=== PATIENT | female | born 1960 | race Caucasian/White ===

== ENCOUNTER 2020-06-28 15:28 | Emergency (ER) | payer MEDICAID, SELFPAY ==
[2020-06-28 15:43] VITALS: BP 145/85; BP 158/86; PULSE 60; PULSE 81; RESP 18; TEMP 37.2; O2SAT 96; BMI 31.8
--- NOTE | 2020-06-28 16:14 | ECG_ITS ---
Test Reason : CHEST PAIN Blood Pressure : / mmHG Vent. Rate : 067 BPM Atrial Rate : 067 BPM P-R Int : 134 ms QRS Dur : 096 ms QT Int : 416 ms P-R-T Axes : -22 000 008 degrees QTc Int : 439 ms Normal sinus rhythm Minimal voltage criteria for LVH, may be normal variant Intra-ventricular conduction delay Abnormal ECG When compared with ECG of 03-MAY-2020 16:35, Vent. rate has decreased BY 54 BPM Referred By: Roman Smith Electronically Signed By:JULIANNE WHITNEY MD
--- NOTE | 2020-06-28 16:16 | XR_ITS ---
EXAMINATION: XR CHEST CLINICAL INFORMATION: Chest pain COMPARISON: Chest radiographs 05/03/2020 TECHNIQUE: Portable upright AP view of the chest was obtained. FINDINGS: The lungs are grossly clear. There is no pneumothorax, pleural reaction, airspace consolidation, or definite groundglass opacity. The costophrenic sulci are clear. There is no effusion. The heart is within normal size. The vascularity is unremarkable. The hilar and mediastinal contours and bony structures are unremarkable. IMPRESSION: No acute intrathoracic disease.
[2020-06-28 16:37] LABS: MANUAL DIFF FLAG NO
[2020-06-28 16:40] LABS: Basophils Percent Auto 0.4 % (0-2); Eosinophils Absolute Auto 0.3 X10*3/uL (0.0-0.4); Eosinophils Percent Auto 3.4 % (0-4); Hematocrit 36.2 % (37-47); Hemoglobin 11.2 g/dl (12.0-16.0); Imm Gran Abs Auto 0.04 X10*3/uL (0.00-0.03); Imm Gran Pct Auto 0.4 % (0.0-0.4); Lymphocytes Absolute Auto 3.4 X10*3/uL (1.2-4.9); Lymphocytes Percent Auto 37.6 % (20-40); Mean Corpuscular HGB Conc 30.9 g/dl (31.0-35.0); Mean Corpuscular Hemoglobin 24.7 pg (27.0-33.0); Mean Corpuscular Volume 79.9 fL (80-98); Mean Platelet Volume 11.2 fL (9.4-12.3); Monocytes Absolute Auto 0.6 X10*3/uL (0.1-1.2); Monocytes Percent Auto 7.2 % (2-11); Neutrophils Absolute Auto 4.5 X10*3/uL (2.0-8.3); Platelet Count 240 X10*3/uL (160-400); Red Blood Count 4.53 X10*6/uL (4.20-5.50); Red Cell Distribution Width 15.9 % (11.0-16.0); White Blood Count 8.9 X10*3/uL (4.8-10.8)
--- NOTE | 2020-06-28 16:47 | ED_ITS ---
HPI - Chest Pain General Chief Complaint: Chest Pain Stated Complaint: SOB Time Seen by Provider: 06/28/20 16:47 Source: EMS Mode of arrival: EMS Limitations: no limitations History of Present Illness HPI narrative: 60-year-old female with past medical history significant for anemia, anxiety disorder, arthritis, asthma, fibromyalgia, hypertension, migraine headaches and cervical CA status post total abdominal hysterectomy presenting today with complaint of substernal chest pain while she was watching television 6 hours prior to arrival. States pain feels like ache and continuous. Worsening with some activity. Similar to previous. MD complaint: chest pain Onset (ago): hour(s) Timing of current episode: constant Prior episodes: Yes Onset: during rest Pain location: substernal Pain radiation: none Severity: mild Relieving factors: nothing Related Data Allergies Allergy/AdvReac Type Severity Reaction Status Date / Time buspirone [From BuSpar] Allergy Mild TONGUE Verified 06/28/20 15:50 TINGLING, dizziness Motrin Allergy Unknown rash Verified 06/28/20 15:50 ibuprofen [From Motrin] AdvReac Mild HTN Verified 06/28/20 15:50 Review of Systems Review of Systems: Constitutional: No Weight loss, No Fever, No Chills, No Night Sweats, No Fatigue, No Malaise ENT/Mouth: No Hearing loss, No Ear Pain, No Nasal Congestion, No Sinus Pain, No Hoarseness, No sore throat, No Rhinorrhea, No Swallowing Difficulty Eyes: No Eye Pain, No Swelling, No Redness, No Foreign Body, No Discharge, No Vision Changes Cardiovascular: + Chest Pain, No SOB, No Dyspnea on Exertion, No Orthopnea, No Edema, No Palpitations Respiratory: No Cough, No Sputum, No Wheezing, No Smoke Exposure, No Dyspnea Gastrointestinal: No Nausea, No Vomiting, No Diarrhea, No Constipation, No abdominal Pain, No Hematochezia, No Melena Genitourinary: no irregular bleeding, No Dysuria, No Urinary Frequency, No Hematuria, No Urinary Incontinence, No Urgency, No Flank Pain, No Urinary Flow Changes, No Hesitancy Musculoskeletal: No joint pain, No Myalgias, No Joint Swelling Skin: No Skin Lesions, No rash Neuro: No Weakness, No Numbness, No Paresthesias, No Loss of Consciousness, No Dizziness, No Headache Psych: No Anxiety/Panic, No Depression, No SI/HI/AH/VH, No Social Issues, Heme/Lymph: No Bruising, No Bleeding,No Lymphadenopathy Endocrine: No Polyuria, No Polydipsia, No Temperature Intolerance [facility] Past Medical History Medical History (Updated 06/28/20 @ 20:00 by Ramon Nash NP) Anemia Arthritis Fibromyalgia, primary HTN (hypertension) Migraines Surgical History (Updated 06/28/20 @ 15:49 by Minoo Cavazos) H/O: hysterectomy Social History Social History Alcohol intake: never Smoking Status: Current every day smoker Smoked in Last 30 Days: Yes Use of substances other than those prescribed or required for medical reasons: No Advance Directives: Yes Advance Directives on File: Yes Advance Directives Date on File: 12/05/16 Physical Exam Vital Signs: Vital Signs: Vital Signs Temp Pulse Resp BP Pulse Ox 06/28/20 18:00 98.9 F 67 18 122/74 98 06/28/20 15:43 99.0 F 81 18 145/85 H 96 Body Mass Index 31.8 Const: Other: anxious-appearing General: cooperative and healthy appearing; No acute distress or intoxicated appearing Nutritional Appearance: average body habitus Orientation/consciousness: patient oriented x3 HENMT: Head: Yes normal to inspection Ears: hearing grossly normal bilaterally Eyes: General: appearance normal, both eyes and all related structures Visual Varela: normal visual varela by confrontation Neck: Neck: Yes normal visual inspection and No tender Thyroid: Thyroid normal Chest: Chest palpation & inspection: normal inspection of the chest Resp: Effort & Inspection: normal respiratory effort Cardio: Jugular venous distension: no JVD GI: Inspection: Yes normal to inspection Percussion: Yes normal to percussion Auscultation: normal bowel sounds : General: Yes no CVA tenderness Back/Spine/Pelvis: Back: no CVA tenderness Skin: General skin exam: no rashes or lesions noted Neuro: General: patient oriented x3 Extrem: General: Yes normal to inspection Course Course Course Narrative: has been resting comfortably on the phone in no acute distress. Does contribute component of anxiety to her symptoms. Labs otherwise unremarkable. Troponin negative. EKG without acute changes. Chest x-ray negative. Will discharge home with clear precaution return follow-up instructions. Stable for discharge. MDM - Chest Pain Differential Diagnosis Differential diagnosis: Likely stable angina, unstable angina pectoris, atypical chest pain, costochondritis and chest pain; Unlikely fracture of rib, pneumothorax, st elevation myocardial infarction and biliary colic Lab Data Result diagrams: 06/28/20 16:29 06/28/20 18:12 Labs: Lab Results 06/28/20 06/28/20 06/28/20 Range/Units 16:29 16:29 16:29 WBC 8.9 (4.8-10.8) X10*3/uL RBC 4.53 (4.20-5.50) X10*6/uL Hgb 11.2 L (12.0-16.0) g/dl Hct 36.2 L (37-47) % MCV 79.9 L (80-98) fL MCH 24.7 L (27.0-33.0) pg MCHC 30.9 L (31.0-35.0) g/dl RDW 15.9 (11.0-16.0) % Plt Count 240 (160-400) X10*3/uL MPV 11.2 (9.4-12.3) fL Immature Gran % (Auto) 0.4 (0.0-0.4) % Neut % (Auto) 51.0 (45-73) % Lymph % (Auto) 37.6 (20-40) % Chaves % (Auto) 7.2 (2-11) % Eos % (Auto) 3.4 (0-4) % Baso % (Auto) 0.4 (0-2) % Lymph # (Auto) 3.4 (1.2-4.9) X10*3/uL Chaves # (Auto) 0.6 (0.1-1.2) X10*3/uL Eos # (Auto) 0.3 (0.0-0.4) X10*3/uL Baso # (Auto) 0.0 (0.0-0.2) X10*3/uL Abs Immat Gran (auto) 0.04 H (0.00-0.03) X10*3/uL Absolute Neuts (auto) 4.5 (2.0-8.3) X10*3/uL Absolute Nucleated RBC 0.000 (0.0-0.012) X10*3/uL Nucleated RBC % (auto) 0.0 (0.0-0.2) /100WBC Hold Blue Top SEE NOTE Sodium Cancelled Potassium Cancelled Chloride Cancelled Carbon Dioxide Cancelled Anion Gap Cancelled BUN Cancelled Creatinine Cancelled Estim Creat Clear Calc Cancelled Estimated GFR Cancelled Random Glucose Cancelled Calcium Cancelled Total Bilirubin (0.0-1.0) mg/dL AST (5-31) U/L ALT (0-31) U/L Alkaline Phosphatase (39-117) U/L Troponin I High Sens (<3.5-17.0) ng/L Total Protein (6.5-8.0) g/dL Albumin (3.5-5.0) g/dL 06/28/20 06/28/20 06/28/20 Range/Units 16:29 17:08 18:12 WBC (4.8-10.8) X10*3/uL RBC (4.20-5.50) X10*6/uL Hgb (12.0-16.0) g/dl Hct (37-47) % MCV (80-98) fL MCH (27.0-33.0) pg MCHC (31.0-35.0) g/dl RDW (11.0-16.0) % Plt Count (160-400) X10*3/uL MPV (9.4-12.3) fL Immature Gran % (Auto) (0.0-0.4) % Neut % (Auto) (45-73) % Lymph % (Auto) (20-40) % Chaves % (Auto) (2-11) % Eos % (Auto) (0-4) % Baso % (Auto) (0-2) % Lymph # (Auto) (1.2-4.9) X10*3/uL Chaves # (Auto) (0.1-1.2) X10*3/uL Eos # (Auto) (0.0-0.4) X10*3/uL Baso # (Auto) (0.0-0.2) X10*3/uL Abs Immat Gran (auto) (0.00-0.03) X10*3/uL Absolute Neuts (auto) (2.0-8.3) X10*3/uL Absolute Nucleated RBC (0.0-0.012) X10*3/uL Nucleated RBC % (auto) (0.0-0.2) /100WBC Hold Blue Top Sodium Cancelled 141 Potassium Cancelled 4.0 Chloride Cancelled 106 Carbon Dioxide Cancelled 27 Anion Gap Cancelled 12 BUN Cancelled 13 Creatinine Cancelled 0.69 Estim Creat Clear Calc Cancelled 93.2 Estimated GFR Cancelled > 60 Random Glucose Cancelled 88 Calcium Cancelled 9.3 Total Bilirubin 0.5 (0.0-1.0) mg/dL AST 19 (5-31) U/L ALT 22 (0-31) U/L Alkaline Phosphatase 95 (39-117) U/L Troponin I High Sens < 3.5 (<3.5-17.0) ng/L Total Protein 6.9 (6.5-8.0) g/dL Albumin 4.1 (3.5-5.0) g/dL Imaging Data Chest x-ray: Radiologist's impression: [place] [id number] XRay Report Signed Patient: Nadege Lee#: [id number] : 2Acct:[id number] Age/Sex: 60 / FADM Date: 06/28/20 Loc: .ED Attending Dr: Ordering Physician: Generic ED Physician Date of Service: 06/28/20 Procedure(s): XR chest 1V Accession Number(s): [id number] cc: Generic ED Physician~ EXAMINATION: XR CHEST CLINICAL INFORMATION: Chest pain COMPARISON: Chest radiographs 05/03/2020 TECHNIQUE: Portable upright AP view of the chest was obtained. FINDINGS: The lungs are grossly clear. There is no pneumothorax, pleural reaction, airspace consolidation, or definite groundglass opacity. The costophrenic sulci are clear. There is no effusion. The heart is within normal size. The vascularity is unremarkable. The hilar and mediastinal contours and bony structures are unremarkable. IMPRESSION: No acute intrathoracic disease. Dictated By:LILIAN GREENWOOD MD Signed By:<Electronically signed by LILIAN GREENWOOD MD in OV>06/28/20 1725 DD/ 1616 TD/TT: Thermo Cementing Folder Operator: IVEY ECG Data ECG #1: Interpretation: Normal sinus rhythm Heart rate [address] segment changes Discharge Plan Discharge Clinical Impression: Costalchondritis Patient Disposition: Home, Self-Care Instructions: Chest Pain (ED), Anxiety (ED)
--- NOTE | 2020-06-28 17:00 | PC.NURSE ---
PATIENT A&OX3, IV INSERTED, LABS DRAWN, EKG BEING PERFORMED, SHEATHER APPLIED, NSR 70S-80S, VSS, WILL CONTINUE TO MONITOR.
[2020-06-28 17:11] LABS: Troponin-I High Sensitivity < 3.5 ng/L (<3.5-17.0)
[2020-06-28 18:00] VITALS: BP 122/74; PULSE 67; RESP 18; TEMP 37.2; O2SAT 98
[2020-06-28] MEDS: Acetaminophen 325 MG TABLET 975 MG PO (18:12)
--- NOTE | 2020-06-28 18:16 | PC.NURSE ---
patient medicated for 10 headache, desk monitor remains [id number], vss, pt requested food-providered okd patient to eat, will continue to monitor.
[2020-06-28 18:48] LABS: Alanine Aminotransferase 22 U/L (0-31); Albumin Level 4.1 g/dL (3.5-5.0); Alkaline Phosphatase 95 U/L (39-117); Anion Gap 12 (12-20); Aspartate Amino Transferase 19 U/L (5-31); Bilirubin Total 0.5 mg/dL (0.0-1.0); Blood Urea Nitrogen 13 mg/dL (9-16); Calcium 9.3 mg/dL (8.4-10.2); Carbon Dioxide 27 mmol/L (22-29); Chloride 106 mmol/L (96-108); Creatinine Clr Calc Pharmacy 93.2; Estimated Glomerular Filt Rate > 60; Glucose Random 88 mg/dL (60-115); Sodium 141 mmol/L (135-145); Total Protein 6.9 g/dL (6.5-8.0)
[2020-06-28 20:00] VITALS: BP 155/82; PULSE 60; RESP 18; TEMP 36.7; O2SAT 96
--- NOTE | 2020-06-28 20:10 | PC.NURSE ---
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
== END 2020-06-28 20:50 | disposition home or self-care (01) ==
PROVIDERS: Nurse Practitioner Primary Care; Emergency Provider Internal Medicine; PCP Internal Medicine
DX: M94.0 Chondrocostal junction syndrome [Tietze] (principal); I10 Essential (primary) hypertension; M79.7 Fibromyalgia
CPT/HCPCS: 36415; 71045; 80053; 84484; 85025; 93005; 99284

== ENCOUNTER 2020-07-10 21:06 | Emergency (ER) | payer MEDICAID, SELFPAY ==
[2020-07-10 21:37] VITALS: BP 147/82; PULSE 86; RESP 16; TEMP 36.8; O2SAT 100; BMI 30.5
--- NOTE | 2020-07-10 21:49 | ED.EXTPRO ---
HPI - Extremity Problem General Chief complaint: Extremity Injury, Lower Stated complaint: KNEE PAIN Time Seen by Provider: 07/10/20 21:49 History of Present Illness HPI Narrative: Patient is a 60-year-old female presents today with having bilateral lower extremity pain and back pain. Patient denies any bowel urinary incontinence. History of similar pain in the past. History of arthritis in both knees. Patient denies any fever chills. No pain on urination. No coughing or congestion or upper respiratory symptoms. No focal weakness. Patient is not on any blood thinners. Claims that she is allergic to Motrin, which causes her rash. Patient denies new pain. Similar to previous bouts. Patient claims that muscle relaxant has worked for her in the past Related Data Previous Rx's Medication Instructions Recorded cyclobenzaprine 10 mg PO TID PRN #20 tab 07/10/20 Allergies Allergy/AdvReac Type Severity Reaction Status Date / Time buspirone [From BuSpar] Allergy Mild TONGUE Verified 06/28/20 15:50 TINGLING, dizziness Motrin Allergy Unknown rash Verified 06/28/20 15:50 ibuprofen [From Motrin] AdvReac Mild HTN Verified 06/28/20 15:50 Review of Systems Review of Systems: Constitutional: No Weight loss, No Fever, No Chills, No Night Sweats, No Fatigue, No Malaise ENT/Mouth: No Hearing loss, No Ear Pain, No Nasal Congestion, No Sinus Pain, No Hoarseness, No sore throat, No Rhinorrhea, No Swallowing Difficulty Eyes: No Eye Pain, No Swelling, No Redness, No Foreign Body, No Discharge, No Vision Changes Cardiovascular: No Chest Pain, No SOB, No Dyspnea on Exertion, No Orthopnea, No Edema, No Palpitations Respiratory: No Cough, No Sputum, No Wheezing, No Smoke Exposure, No Dyspnea Gastrointestinal: No Nausea, No Vomiting, No Diarrhea, No Constipation, No abdominal Pain, No Hematochezia, No Melena Genitourinary: no irregular bleeding, No Dysuria, No Urinary Frequency, No Hematuria, No Urinary Incontinence, No Urgency, No Flank Pain, No Urinary Flow Changes, No Hesitancy Musculoskeletal: positive bilateral knee pain positive back pain Neuro: No Weakness, No Numbness, No Paresthesias, No Loss of Consciousness, No Dizziness, No Headache Psych: No Anxiety/Panic, No Depression, No SI/HI/AH/VH, No Social Issues, Heme/Lymph: No Bruising, No Bleeding,No Lymphadenopathy Endocrine: No Polyuria, No Polydipsia, No Temperature Intolerance [facility] Past Medical History Medical History Anemia Arthritis Fibromyalgia, primary HTN (hypertension) Migraines Surgical History H/O: hysterectomy Social History Social History Alcohol intake: never Smoking Status: Current every day smoker Smoked in Last 30 Days: No Use of substances other than those prescribed or required for medical reasons: No Advance Directives Date on File: 12/05/16 Physical Exam Vital Signs: Vital Signs: Vital Signs Temp Pulse Resp BP Pulse Ox 07/10/20 21:37 98.3 F 86 16 147/82 H 100 Body Mass Index 30.5 Appearance: Alert. Oriented X3. No acute distress. Eyes: Pupils equal, round and reactive to light. ENT: Pharynx normal. Neck: Normal inspection. Neck supple. No lymph nodes noted. No crepitus CVS: Normal heart rate and rhythm. Pulses normal. Normal S1 and S2 Respiratory: No respiratory distress. Breath sounds normal. No Wheezing. No rales Abdomen: Soft and nontender. No rigidity. No distention. good BS x4 Skin: Skin warm and dry. Normal skin color. Normal skin turgor. Extremities: No lower extremity edema. Neurovascular intact to all extremities. No Lacerations. No Rash. sensation in the lower extremity intact. Reflex 2+ at patella bilaterally. Skin intact. Pulses 2+ at dorsalis pedis. No pain on palpation of the spine. Positive paraspinal muscle tenderness bilaterally Neuro: Oriented X 3. No motor deficit. No sensory deficit. Moving all extermities. No slurred speech MDM - Extremity (Nontraumatic) MDM Narrative Medical decision making narrative: patient well appearing. No bowel urinary incontinence. No focal weakness. Pain most likely musculoskeletal versus sciatica. Will give patient muscle relaxants that has helped her in the past. Will have patient closely follow up on an outpatient basis. In stable condition. On exam there is no swelling. No evidence for DVT. Discharge Plan Discharge Clinical Impression: Sciatica Patient Disposition: Home, Self-Care Instructions: Sciatica (ED) Prescriptions: New cyclobenzaprine 10 mg tablet 10 mg PO TID PRN (Reason: back pain) Qty: 20 RF: 0 Referrals: Rolf Zhang MD [Primary Care Provider] - 2 days
[2020-07-10] MEDS: Cyclobenzaprine HCl 10 MG TABLET PO (22:09)
== END 2020-07-10 22:21 | disposition home or self-care (01) ==
LOC: HO.ED 22:02
PROVIDERS: Emergency Provider Emergency Medicine Emergency Medical Services; PCP Internal Medicine
DX: M54.31 Sciatica, right side (principal); M54.32 Sciatica, left side; M25.561 Pain in right knee; M54.5 Low back pain; I10 Essential (primary) hypertension; F17.200 Nicotine dependence, unspecified, uncomplicated; Z71.6 Tobacco abuse counseling; Z79.899 Other long term (current) drug therapy
CPT/HCPCS: 99283; 99284

== ENCOUNTER → 2020-08-03 13:54 | Outpatient (BNVA) | payer MEDICAID, SELFPAY | PROVIDERS: PCP Internal Medicine; Visit Provider Internal Medicine | DX: Z76.89 Persons encountering health services in other specified circumstances (principal) ==

== ENCOUNTER 2020-08-03 15:28 | Outpatient (REF) | payer MEDICAID, SELFPAY ==
--- NOTE | 2020-08-03 17:00 | PFT_ITS ---
Forced vital capacity moderately reduced. FEV1 slightly reduced, but FEV1/FVC ratio is normal. [id number] moderately reduced. MVV is markedly reduced. Post bronchodilator therapy, there is a small, but significant improvement in FEV1 and BMX91-01. MVV is markedly improved probably due to better effort. Total lung capacity and residual volume slightly decreased. Diffusion capacity moderately decreased. CONCLUSION: Mild restrictive pulmonary disorder. Mild obstructive airway disorder with good response to bronchodilator therapy. This indicates that the patient may have mild bronchial asthma. MD JOANNE Golden/FRIEDA / [phone]
== END 2020-08-03 15:29 | disposition home or self-care (01) ==
LOC: HO.RESP 15:28
PROVIDERS: PCP Internal Medicine; Visit Provider Internal Medicine
DX: R06.00 Dyspnea, unspecified (principal); J44.9 Chronic obstructive pulmonary disease, unspecified
CPT/HCPCS: 94060; 94727; 94729; 99202

== ENCOUNTER 2020-08-05 11:17 | Outpatient (REF) | payer MEDICAID, SELFPAY ==
--- NOTE | 2020-08-05 11:25 | XR_ITS ---
EXAMINATION: XR CHEST CLINICAL INFORMATION: Dyspnea COMPARISON: 06/28/2020 TECHNIQUE: 2 views of the chest were obtained. FINDINGS: The lungs are well expanded. There is no focal consolidation, edema, or effusion. No pneumothorax. The cardiomediastinal silhouette is within normal limits. No acute osseous abnormality. XR/XR chest 2V IMPRESSION: No acute pulmonary finding.
== END 2020-08-05 11:18 | disposition home or self-care (01) ==
LOC: HO.XRAY 11:17
PROVIDERS: PCP Internal Medicine; Visit Provider Internal Medicine
DX: R06.00 Dyspnea, unspecified (principal)
CPT/HCPCS: 71046

== ENCOUNTER 2020-09-16 11:00 | Outpatient (RCR) | payer MEDICAID, SELFPAY | END 2020-09-27 11:43 | disposition other institution (70) | LOC: HO.PT 11:00 | PROVIDERS: PCP Internal Medicine; Visit Provider Emergency Medicine | DX: M17.11 Unilateral primary osteoarthritis, right knee (principal) | CPT/HCPCS: 97110; 97161 ==

== ENCOUNTER 2021-05-04 11:01 | Outpatient (REF) | payer MEDICAID, SELFPAY ==
--- NOTE | ~2021-05-04 | US_ITS ---
EXAMINATION: US VENOUS ULTRASOUND WITH DOPPLER LOWER EXTREMITY, RIGHT CLINICAL INFORMATION: Right lower extremity pain COMPARISON: 05/04/2020 TECHNIQUE: Ultrasound of the deep veins is performed from the hip to the calf with compression sonography and color and pulse Doppler assessment. Spectral analysis with color-flow imaging is performed. FINDINGS: There is normal venous compression and respiratory variation and augmented flow. The visualized common femoral vein, superficial femoral vein, profunda femoral vein, popliteal vein, and the trifurcation region shows no evidence of deep venous thrombosis. Posterior tibial veins are seen but the peroneal veins, which were seen on the 2019 study, are not visualized on this exam. There is no significant popliteal fossa cyst. If the patient's symptoms persist, followup ultrasound in 5 days 7 days might be of value to exclude proximal propagation from a non-visualized calf vein. US/US venous duplex LE RT IMPRESSION: No DVT demonstrated in the right lower extremity from the popliteal veins upwards. The peroneal veins are not seen on the current study, but they were in 2019. If patient's symptoms continue would recommend a repeat study in the 1-2 weeks.
== END 2021-05-04 11:02 | disposition home or self-care (01) ==
LOC: HO.US 11:01
PROVIDERS: PCP Internal Medicine; Visit Provider Internal Medicine
DX: M79.604 Pain in right leg (principal); R20.0 Anesthesia of skin
CPT/HCPCS: 93971

== ENCOUNTER 2021-07-04 00:56 | Emergency (ER) | payer MEDICAID, SELFPAY ==
--- NOTE | 2021-07-04 01:08 | PC.NURSE ---
PT CAME IN W/EMS- WAS APPROPRIATE TO START HER CARE IN TRIAGE. PT STATES TO THIS RN IF I DON'T GET A ROOM I AM LEAVING THIS CHARGE NURSE EXPLAINED TO PT WE HAD NO ROOMS, AND NO HALLWAY SPACE AVAILABLE IN THE ED, BUT WE DID HAVE A NURSE IN [place] WHO COULD ASSESS HER, ORDER LABS AND ANY IMAGING NEEDED TO FACILITATE HER CARE. PT PROCEEDED TO GET UP OFF THE EMS STRETCHER AND STATE FUCK THIS PLACE IM GOING TO [facility]
== END 2021-07-04 01:29 | disposition left against medical advice (07) ==
LOC: HO.ED 01:12
PROVIDERS: Emergency Provider Emergency Medicine
DX: R11.0 Nausea (principal); R53.1 Weakness

== ENCOUNTER 2021-07-21 11:00 | Outpatient (RCR) | payer MEDICAID, SELFPAY ==
--- NOTE | 2021-06-14 11:59 | MHC.PT.EP ---
[facility] [place] Office [place] Office [place] Office [address] [place] Rooney [address] [phone] F: [phone] F: [phone] F: [phone] F: [phone] Physical Therapy Plan of Care Date of Evaluation: Date of Surgery: November 2020 Diagnosis: right leg pain (S/P R TKA November 2020) Assessment: pt presents to physical therapy s/p R TKA back in November 2020. The pt received no therapy after her surgery secondary to her poor tolerance of exercise and activity after surgery. The pt maintains her knee in full extension all the time and refuses to bend it secondary to pain. She has significant limitations in knee range and patellar mobility limiting her ability to bend her knee. pt several times stated she would leave if this therapist pushed on her knee or touched her leg when she did not want it. Unclear if pt has psychosocial factors that will limit her ability to participate in therapy. pt presents to physical therapy with pain, decreased range of motion, decreased strength, impaired functional mobility, impaired postural awareness, and gait deviations. pt is a fair candidate for skilled PT due to age, potential remediation of impairments, typical disease/condition progression and prognosis, comorbidities, and motivation. pt would benefit from tailored strengthening and stretching exercise program, functional training, gait training, postural re-training, neuromuscular re-education, modalities as needed for pain, equipment safety demonstration. Frequency and Duration: The patient will be seen 2x/wk for 6 wks Short Term Goals: pt will be I w/ HEP to promote self-management of condition. pt will improve R knee flexion by 15 deg to promote ease in sitting in chair for self-care activities. pt will ambulate w/ cane in L hand to promote increased safety and reduced weight bearing through R LE. Electron Beam Welder Goals: pt will report a statistically significant improvement in her self-reported outcome measure, LEFI, to promote return to PLOF. pt will report <5/10 R knee pain w/ ambulating 5x30' to promote increased tolerance for household ambulation. pt will be I w/ lower body dressing to reduce caregiver burden and foster functional independence. Treatment Plan: Modalities to reduce pain, spasms and effusion. Manual therapy to restore motion and function. Therapeutic exercise to improve strength and flexibility. Neuromuscular re-education for posture and balance. Therapeutic activities to return to functional activities of daily living. Electronically signed by: Asia Castro PT, DPT Please sign and return to therapist. Thank you for your referral.
--- NOTE | 2021-08-05 10:09 | MHC.PT.DC ---
[facility] [place] Office [place] Office [place] Office [address] Rooney [address] [facility] [phone] F: [phone] F: [phone] F: [phone] F: [phone] Physical Therapy Discharge Report Diagnosis: right leg pain (S/P R TKA November 2020) Date of Surgery: November 2020 Date of Evaluation: 06/14/21 Date of Discharge: 08/05/21 Treatments to Date: 4 Cancellations to Date: 5 No Shows to Date: 4 Discharge Status: Visit Non-compliance Discharge Summary: The patient has poor attendance. Per [facility] Therapy policy she is being discharged from this physical therapy plan of care. She has not had a follow-up with her orthopedic surgeon since her surgery. She is very self-limiting secondary to fear of pain. She refuses to bend her knee causing significant loss of knee flexion range of motion. She is discharged from this physical therapy plan of care. Electronically signed by: Asia Castro PT, DPT Please sign and return to therapist. Thank you for your referral.
== END 2021-08-05 10:10 | disposition home or self-care (01) ==
LOC: HO.PT 11:00
PROVIDERS: PCP Internal Medicine; Visit Provider Internal Medicine
DX: R10.31 Right lower quadrant pain (principal)
CPT/HCPCS: 97110; 97162

== ENCOUNTER 2021-11-15 15:57 | Emergency (ER) | payer MEDICAID, SELFPAY ==
--- NOTE | ~2021-11-15 | CT_ITS ---
EXAMINATION: CT ABDOMEN AND PELVIS WITH CONTRAST CLINICAL INFORMATION: 61-year-old female back pain, history of cervical carcinoma COMPARISON: 05/03/2020 TECHNIQUE: Multidetector volumetric images were obtained from the superior aspect of the liver through the pubic symphysis following administration 85 mL of Omnipaque 350 intravenous contrast. Sagittal and coronal reformatted images were obtained on the technologist's workstation. Oral contrast: No This CT examination was performed using dose optimization techniques as appropriate, variously including the following: *Automated exposure control *Adjustment of mA and/or kV according to patient size (this includes techniques or standardized protocols for targeted exams where dose is matched to indication/reason for exam; i.e. extremities or head) *Use of iterative reconstruction technique DLP: 641 mGy-cm FINDINGS: LUNG BASES: There is linear scarring in the and right middle lobe LIVER, GALLBLADDER, AND BILIARY TREE: The liver is normal in size, shape, and attenuation. No focal hepatic lesion or biliary ductal dilatation is present. The gallbladder is unremarkable with no evidence of radiopaque gallstones, gallbladder wall thickening, or obvious pericholecystic inflammatory changes. PANCREAS: Unremarkable. SPLEEN: Unremarkable. ADRENAL GLANDS: Unremarkable. KIDNEYS AND URETERS: Left kidney revealed 1.3 cm cortical cyst in upper pole. Left kidney demonstrates nonobstructing 2 mm stone. There is no hydroureteronephrosis. BLADDER: Unremarkable. GASTROINTESTINAL TRACT: The small and large bowel are unremarkable. The appendix is unremarkable. ABDOMINAL WALL: There is small fat-containing umbilical hernia. LYMPH NODES: Normal. VASCULAR: Unremarkable. PELVIC VISCERA: Patient is status post total hysterectomy. OSSEOUS STRUCTURES: There are mild multilevel degenerative changes in lumbar and distal thoracic spine CT/CT abdomen pelvis w con IMPRESSION: No acute abnormalities. Status post hysterectomy. Small cyst left kidney and nonobstructing stone in the right kidney. Fleischner guidelines were followed.
[2021-11-15 17:31] VITALS: BP 151/85; PULSE 72; RESP 18; TEMP 36.9; O2SAT 98; BMI 28.3
--- NOTE | 2021-11-15 18:12 | ED.ABDPAIN ---
HPI - Abdominal Pain General Chief Complaint: Urogenital-Female <GUERITA Lindsay - Last Filed: 11/15/21 18:30> Stated Complaint: abd pain/possible infection/headaches <GUERITA Lindsay - Last Filed: 11/15/21 18:30> Time Seen by Provider: 11/15/21 17:42 <GUERITA Lindsay - Last Filed: 11/15/21 18:30> Source: patient <GUERITA Lindsay - Last Filed: 11/15/21 18:30> Mode of arrival: ambulatory <GUERITA Lindsay - Last Filed: 11/15/21 18:30> Limitations: no limitations <GUERITA Lindsay Last Filed: 11/15/21 18:30> History of Present Illness HPI narrative: 61-year-old female with a past medical history of hypertension, fibromyalgia, arthritis, anemia, migraine headaches and cervical cancer years ago who now self catheterizes daily multiple times presenting to the ED with complaints of suprapubic abdominal pain radiating to her back reporting ?I think I have a kidney infection?. She reports over the past 2 days it has been painful to self cath and the last time she had that she had a kidney infection. She reports that she has had subjective fevers, chills, body aches, headaches along with this. She denies any recent travel or sick contacts. She denies any measured fevers, dizziness, neck pain/stiffness, trouble swallowing or breathing, chest pain or shortness of breath, dyspnea on exertion, orthopnea, palpitations, hematuria, abnormal vaginal discharge, diarrhea constipation, rashes or any other symptoms complaints or concerns at this time. <GUERITA Lindsay - Last Filed: 11/15/21 18:30> MD elicited complaint: abdominal pain <GUERITA Lindsay - Last Filed: 11/15/21 18:30> Pertinent past history: other (See above) <GUERITA Lindsay - Last Filed: 11/15/21 18:30> Onset (ago): day(s) (2) <GUERITA Lindsay - Last Filed: 11/15/21 18:30> Pain Consistency: constant <GUERITA Lindsay Last Filed: 11/15/21 18:30> Location: suprapubic <GUERITA Lindsay - Last Filed: 11/15/21 18:30> Severity: moderate <GUERITA Lindsay Last Filed: 11/15/21 18:30> Quality: cramping, aching and sharp <GUERITA Lindsay Last Filed: 11/15/21 18:30> Radiation: back <GUERITA Lindsay Last Filed: 11/15/21 18:30> Exacerbating factors: other (self ) <GUERITA Lindsay Last Filed: 11/15/21 18:30> Relieving factors: nothing <GUERITA Lindsay Last Filed: 11/15/21 18:30> Associated symptoms: fever and chills <GUERITA Lindsay Last Filed: 11/15/21 18:30> Related Data Home Medications: Home Medications Medication Instructions Recorded Confirmed lisinopril 20 mg tablet 20 mg PO DAILY 08/03/20 naproxen 500 mg tablet (Naprosyn) 500 mg PO BID 08/03/20 Previous Rx's Medication Instructions Recorded cyclobenzaprine 10 mg tablet 10 mg PO TID PRN #20 tab 07/10/20 albuterol sulfate 90 mcg/actuation 2 puff INHALATION Q4-6H PRN 30 08/03/20 aerosol inhaler (ProAir HFA) Days #8.5 g fluticasone propionate 100 2 inh PO BID #60 cap 11/26/20 mcg/actuation blister powder for inhalation (Flovent Diskus) <GUERITA Lindsay Last Filed: 11/15/21 18:30> Allergies/Adverse Reactions: Allergies Allergy/AdvReac Type Severity Reaction Status Date / Time buspirone [From BuSpar] Allergy Mild TONGUE Verified 11/15/21 17:31 [place], dizziness Motrin Allergy Unknown rash Verified 11/15/21 17:31 ibuprofen [From Motrin] AdvReac Mild HTN Verified 11/15/21 17:31 <GUERITA Lindsay Last Filed: 11/15/21 18:30> Review of Systems Review of Systems Constitutional : + Fever, + Chills, No Night Sweats, No Fatigue, No Malaise Cardiovascular : No Chest Pain, No SOB Respiratory : No Cough, No Sputum, No Wheezing, No Dyspnea Gastrointestinal : No Nausea, No Vomiting, No Diarrhea, + abdominal Pain, No Hematochezia, No Melena Genitourinary : No irregular bleeding, No Dysuria, No Urinary Frequency, No Hematuria,No Urinary Incontinence, No Urgency, No Flank Pain Musculoskeletal : No joint pain, No Myalgias, No Joint Swelling Skin : No Skin Lesions, No rash Neuro : No Weakness, No Numbness, No Paresthesias, No Loss of Consciousness, No Dizziness, No Headache Heme/Lymph: No Lymphadenopathy Endocrine : No Temperature Intolerance <GUERITA Lindsay - Last Filed: 11/15/21 18:30> Yes all other systems are reviewed and are negative <GUERITA Lindsay - Last Filed: 11/15/21 18:30> FOR[facility]LY [facility] Past Medical History Attestation statement: The following information was validated with the patient. <GUERITA Lindsay - Last Filed: 11/15/21 18:30> Medical History: Medical History Anemia Arthritis Dyspnea on exertion Fibromyalgia, primary History of cervical cancer HTN (hypertension) Migraines <GUERITA Lindsay - Last Filed: 11/15/21 18:30> Surgical History: Surgical History H/O: hysterectomy <GUERITA Lindsay - Last Filed: 11/15/21 18:30> Social History Social History: Social History Alcohol intake: never Advance Directives: Yes Advance Directives Information Provided: No Advance Directives on File: No Advance Directives Date on File: 12/05/16 <GUERITA Lindsay - Last Filed: 11/15/21 18:30> Physical Exam ED Vital Signs: Vital Signs - 24 hr 11/15/21 17:31 11/15/21 20:35 Temperature 98.5 F Pulse Rate 72 84 Respiratory Rate 18 16 Blood Pressure 151/85 H 180/99 H Pulse Oximetry 98 100 BMI result Body Mass Index 28.3 vital signs have been reviewed as normal and appeared to be correct. Blood pressure 151/85. Heart rate normal. Respiration rate normal. Temperature normal. Oxygen saturation normal. <GUERITA Lindsay - Last Filed: 11/15/21 18:30> Vital Signs - 24 hr 11/15/21 17:31 11/15/21 20:35 Temperature 98.5 F Pulse Rate 72 84 Respiratory Rate 18 16 Blood Pressure 151/85 H 180/99 H Pulse Oximetry 98 100 BMI result Body Mass Index 28.3 <GUERITA Rose - Last Filed: 11/15/21 21:41> Appearance: Alert. Oriented X3. No acute distress. Head: Normal external exam. Normocephalic. Atraumatic. Eyes: PERRLA. EOMI. Conjunctiva and sclera normal. Eyelids normal. ENT: Pharynx normal. Uvula midline. Moist mucous membranes. Normal voice. Neck: Normal inspection. Neck supple. FROM. No adenopathy. No tracheal deviation noted. No meningeal signs. No neck mass noted. CVS: Normal heart rate and rhythm. Heart sound normal. Pulses normal throughout. No murmurs/rales/gallops. Respiratory: No respiratory distress. Painless inspiration. Breath sounds normal. No wheezes/rales/rhonchi noted. Chest nontender. No crepitus is noted. No signs of trauma noted. No accessory muscle usage noted or decreased air movement noted. No signs of trauma. Abdomen: Soft and mild ttp to suprapubic area. Bowel sounds normal in all 4 quadrants. No distention noted. No organomegaly noted. No visible injury noted. Back: No CVA tenderness. Full range of motion noted. Nontender. Patient neuro intact bilaterally and distally on all 4 extremities. Patient's reflexes intact bilaterally and distally on all 4 extremities. No rashes/lesion/induration/fluctuance or signs of infection noted. Skin: Skin warm and dry. Normal skin color. Normal skin turgor. No rashes/lesions/lacerations noted. Extremities: Extremities exhibit normal range of motion and nontender. Neuro: Oriented X 3. No motor deficit. No sensory deficit. Reflexes normal. Normal steady gait. No focal neuro deficits noted. CN's II-XII intact bilaterally? Vascular: + radial pulses/+ 2 distal pedal pulses/+2 dorsalis pedis b/l. Normal cap refill. No cyanosis noted to upper extremity nails and lower extremity toes nails. <GUERITA Lindsay - Last Filed: 11/15/21 18:30> Course Course Course Narrative: 18pm - 61-year-old female with a past medical history of hypertension, fibromyalgia, arthritis, anemia, migraine headaches and cervical cancer years ago who now self catheterizes daily multiple times presenting to the ED with complaints of suprapubic abdominal pain radiating to her back reporting ?I think I have a kidney infection?. She reports over the past 2 days it has been painful to self cath and the last time she had that she had a kidney infection. She reports that she has had subjective fevers, chills, body aches, headaches along with this. On exam she does have mild suprapubic abdominal tenderness. No rebound tenderness is noted no guarding. No organomegaly noted. No CVA tenderness is noted. Her back does not have any rashes and she is neuro intact bilaterally and distally on all 4 extremities. Normal steady Gait. Plan: Labs, UA, CT scan abdomen pelvis with IV contrast provide a L of IV fluids and re-evaluate. Sign out to Colleen Leavitt PA-C <GUERITA Lindsay - Last Filed: 11/15/21 18:30> 18pm - 61-year-old female with a past medical history of hypertension, fibromyalgia, arthritis, anemia, migraine headaches and cervical cancer years ago who now self catheterizes daily multiple times presenting to the ED with complaints of suprapubic abdominal pain radiating to her back reporting ?I think I have a kidney infection?. She reports over the past 2 days it has been painful to self cath and the last time she had that she had a kidney infection. She reports that she has had subjective fevers, chills, body aches, headaches along with this. On exam she does have mild suprapubic abdominal tenderness. No rebound tenderness is noted no guarding. No organomegaly noted. No CVA tenderness is noted. Her back does not have any rashes and she is neuro intact bilaterally and distally on all 4 extremities. Normal steady Gait. Plan: Labs, UA, CT scan abdomen pelvis with IV contrast provide a L of IV fluids and re-evaluate. Sign out to Colleen Leavitt PA-C Patient's lab work was unremarkable. Patient's UA was unremarkable. Patient's CT abdominal/pelvis showed no acute process. Patient was informed of my physical exam and all test results. I stressed the importance of the patient following up with her PCP. Patient verbalized agreement and understanding with this treatment plan and discharge. <GUERITA Rose - Last Filed: 11/15/21 21:41> MDM - Abdominal Pain Medical Records Attestation: I reviewed the patient's medical records. <GUERITA Lindsay - Last Filed: 11/15/21 18:30> I reviewed the patient's medical records. <GUERITA Rose - Last Filed: 11/15/21 21:41> Lab Data Attestation: I reviewed the patient's lab results. <GUERITA Lindsay - Last Filed: 11/15/21 18:30> I reviewed the patient's lab results. <GUERITA Rose - Last Filed: 11/15/21 21:41> Result diagrams: : 11/15/21 18:40 11/15/21 18:40 <GUERITA Lindsay - Last Filed: 11/15/21 18:30> Labs: Lab Results 11/15/21 11/15/21 11/15/21 Range/Units 18:40 18:40 18:40 WBC 10.5 (4.8-10.8) X10*3/uL RBC 4.47 (4.20-5.50) X10*6/uL Hgb 11.0 L (12.0-16.0) g/dl Hct 35.8 L (37.0-47.0) % MCV 80.1 (80.0-98.0) fL MCH 24.6 L (27.0-33.0) pg MCHC 30.7 L (31.0-35.0) g/dl RDW 15.9 (11.0-16.0) % Plt Count 249 (160-400) X10*3/uL MPV 10.2 (9.4-12.3) fL Immature Gran % (Auto) 0.3 (0.0-0.4) % Neut % (Auto) 51.0 (45-73) % Lymph % (Auto) 39.1 (20-40) % [place] % (Auto) 6.4 (2-11) % Eos % (Auto) 2.9 (0-4) % Baso % (Auto) 0.3 (0-2) % Lymph # (Auto) 4.1 (1.2-4.9) X10*3/uL [place] # (Auto) 0.7 (0.1-1.2) X10*3/uL Eos # (Auto) 0.3 (0.0-0.4) X10*3/uL Baso # (Auto) 0.0 (0.0-0.2) X10*3/uL Abs Immat Gran (auto) 0.03 (0.00-0.03) X10*3/uL Absolute Neuts (auto) 5.4 (2.0-8.3) x10*3/uL Absolute Nucleated RBC 0.000 (0.0-0.012) X10*3/uL Nucleated RBC % (auto) 0.0 (0.0-0.2) /100WBC PT 11.4 (9.9-13.0) SEC INR 1.0 (0.9-1.1) Sodium 139 (135-145) mmol/L Potassium 4.6 (3.3-5.1) mmol/L Chloride 106 (96-108) mmol/L Carbon Dioxide 26 (22-29) mmol/L Anion Gap 12 (12-20) BUN 19 H (9-16) mg/dL Creatinine 0.76 (0.5-1.4) mg/dL Estim Creat Clear Calc 78.9 Estimated GFR > 60 Random Glucose 85 (60-115) mg/dL Lactic Acid (0.5-2.0) mmol/L Calcium 9.6 (8.4-10.2) mg/dL Magnesium 2.1 (1.6-2.6) mg/dL Total Bilirubin 0.2 (0.0-1.0) mg/dL AST 17 (5-31) U/L ALT 13 (0-31) U/L Alkaline Phosphatase 99 (39-117) U/L Total Protein 7.3 (6.5-8.0) g/dL Albumin 4.2 (3.5-5.0) g/dL Urine Color Urine Appearance Urine pH (5.0-8.0) Ur Specific [place] (1.005-1.025) Urine Protein (NEG-TRACE) MG/DL Urine Glucose (UA) (NEG) MG/DL Urine Ketones (NEG) MG/DL Urine Blood (NEG) Urine Nitrite (NEG) Ur Leukocyte Esterase (NEG) 11/15/21 11/15/21 Range/Units 18:40 18:43 WBC (4.8-10.8) X10*3/uL RBC (4.20-5.50) X10*6/uL Hgb (12.0-16.0) g/dl Hct (37.0-47.0) % MCV (80.0-98.0) fL MCH (27.0-33.0) pg MCHC (31.0-35.0) g/dl RDW (11.0-16.0) % Plt Count (160-400) X10*3/uL MPV (9.4-12.3) fL Immature Gran % (Auto) (0.0-0.4) % Neut % (Auto) (45-73) % Lymph % (Auto) (20-40) % [place] % (Auto) (2-11) % Eos % (Auto) (0-4) % Baso % (Auto) (0-2) % Lymph # (Auto) (1.2-4.9) X10*3/uL [place] # (Auto) (0.1-1.2) X10*3/uL Eos # (Auto) (0.0-0.4) X10*3/uL Baso # (Auto) (0.0-0.2) X10*3/uL Abs Immat Gran (auto) (0.00-0.03) X10*3/uL Absolute Neuts (auto) (2.0-8.3) x10*3/uL Absolute Nucleated RBC (0.0-0.012) X10*3/uL Nucleated RBC % (auto) (0.0-0.2) /100WBC PT (9.9-13.0) SEC INR (0.9-1.1) Sodium (135-145) mmol/L Potassium (3.3-5.1) mmol/L Chloride (96-108) mmol/L Carbon Dioxide (22-29) mmol/L Anion Gap (12-20) BUN (9-16) mg/dL Creatinine (0.5-1.4) mg/dL Estim Creat Clear Calc Estimated GFR Random Glucose (60-115) mg/dL Lactic Acid 0.6 (0.5-2.0) mmol/L Calcium (8.4-10.2) mg/dL Magnesium (1.6-2.6) mg/dL Total Bilirubin (0.0-1.0) mg/dL AST (5-31) U/L ALT (0-31) U/L Alkaline Phosphatase (39-117) U/L Total Protein (6.5-8.0) g/dL Albumin (3.5-5.0) g/dL Urine Color YELLOW Urine Appearance CLEAR Urine pH 6.5 (5.0-8.0) Ur Specific [place] 1.020 (1.005-1.025) Urine Protein NEG (NEG-TRACE) MG/DL Urine Glucose (UA) NEG (NEG) MG/DL Urine Ketones NEG (NEG) MG/DL Urine Blood NEG (NEG) Urine Nitrite NEG (NEG) Ur Leukocyte Esterase NEG (NEG) <GUERITA Lindsay - Last Filed: 11/15/21 18:30> Lab Results 11/15/21 11/15/21 11/15/21 Range/Units 18:40 18:40 18:40 WBC 10.5 (4.8-10.8) X10*3/uL RBC 4.47 (4.20-5.50) X10*6/uL Hgb 11.0 L (12.0-16.0) g/dl Hct 35.8 L (37.0-47.0) % MCV 80.1 (80.0-98.0) fL MCH 24.6 L (27.0-33.0) pg MCHC 30.7 L (31.0-35.0) g/dl RDW 15.9 (11.0-16.0) % Plt Count 249 (160-400) X10*3/uL MPV 10.2 (9.4-12.3) fL Immature Gran % (Auto) 0.3 (0.0-0.4) % Neut % (Auto) 51.0 (45-73) % Lymph % (Auto) 39.1 (20-40) % [place] % (Auto) 6.4 (2-11) % Eos % (Auto) 2.9 (0-4) % Baso % (Auto) 0.3 (0-2) % Lymph # (Auto) 4.1 (1.2-4.9) X10*3/uL [place] # (Auto) 0.7 (0.1-1.2) X10*3/uL Eos # (Auto) 0.3 (0.0-0.4) X10*3/uL Baso # (Auto) 0.0 (0.0-0.2) X10*3/uL Abs Immat Gran (auto) 0.03 (0.00-0.03) X10*3/uL Absolute Neuts (auto) 5.4 (2.0-8.3) x10*3/uL Absolute Nucleated RBC 0.000 (0.0-0.012) X10*3/uL Nucleated RBC % (auto) 0.0 (0.0-0.2) /100WBC PT 11.4 (9.9-13.0) SEC INR 1.0 (0.9-1.1) Sodium 139 (135-145) mmol/L Potassium 4.6 (3.3-5.1) mmol/L Chloride 106 (96-108) mmol/L Carbon Dioxide 26 (22-29) mmol/L Anion Gap 12 (12-20) BUN 19 H (9-16) mg/dL Creatinine 0.76 (0.5-1.4) mg/dL Estim Creat Clear Calc 78.9 Estimated GFR > 60 Random Glucose 85 (60-115) mg/dL Lactic Acid (0.5-2.0) mmol/L Calcium 9.6 (8.4-10.2) mg/dL Magnesium 2.1 (1.6-2.6) mg/dL Total Bilirubin 0.2 (0.0-1.0) mg/dL AST 17 (5-31) U/L ALT 13 (0-31) U/L Alkaline Phosphatase 99 (39-117) U/L Total Protein 7.3 (6.5-8.0) g/dL Albumin 4.2 (3.5-5.0) g/dL Urine Color Urine Appearance Urine pH (5.0-8.0) Ur Specific [place] (1.005-1.025) Urine Protein (NEG-TRACE) MG/DL Urine Glucose (UA) (NEG) MG/DL Urine Ketones (NEG) MG/DL Urine Blood (NEG) Urine Nitrite (NEG) Ur Leukocyte Esterase (NEG) 11/15/21 11/15/21 Range/Units 18:40 18:43 WBC (4.8-10.8) X10*3/uL RBC (4.20-5.50) X10*6/uL Hgb (12.0-16.0) g/dl Hct (37.0-47.0) % MCV (80.0-98.0) fL MCH (27.0-33.0) pg MCHC (31.0-35.0) g/dl RDW (11.0-16.0) % Plt Count (160-400) X10*3/uL MPV (9.4-12.3) fL Immature Gran % (Auto) (0.0-0.4) % Neut % (Auto) (45-73) % Lymph % (Auto) (20-40) % [place] % (Auto) (2-11) % Eos % (Auto) (0-4) % Baso % (Auto) (0-2) % Lymph # (Auto) (1.2-4.9) X10*3/uL [place] # (Auto) (0.1-1.2) X10*3/uL Eos # (Auto) (0.0-0.4) X10*3/uL Baso # (Auto) (0.0-0.2) X10*3/uL Abs Immat Gran (auto) (0.00-0.03) X10*3/uL Absolute Neuts (auto) (2.0-8.3) x10*3/uL Absolute Nucleated RBC (0.0-0.012) X10*3/uL Nucleated RBC % (auto) (0.0-0.2) /100WBC PT (9.9-13.0) SEC INR (0.9-1.1) Sodium (135-145) mmol/L Potassium (3.3-5.1) mmol/L Chloride (96-108) mmol/L Carbon Dioxide (22-29) mmol/L Anion Gap (12-20) BUN (9-16) mg/dL Creatinine (0.5-1.4) mg/dL Estim Creat Clear Calc Estimated GFR Random Glucose (60-115) mg/dL Lactic Acid 0.6 (0.5-2.0) mmol/L Calcium (8.4-10.2) mg/dL Magnesium (1.6-2.6) mg/dL Total Bilirubin (0.0-1.0) mg/dL AST (5-31) U/L ALT (0-31) U/L Alkaline Phosphatase (39-117) U/L Total Protein (6.5-8.0) g/dL Albumin (3.5-5.0) g/dL Urine Color YELLOW Urine Appearance CLEAR Urine pH 6.5 (5.0-8.0) Ur Specific [place] 1.020 (1.005-1.025) Urine Protein NEG (NEG-TRACE) MG/DL Urine Glucose (UA) NEG (NEG) MG/DL Urine Ketones NEG (NEG) MG/DL Urine Blood NEG (NEG) Urine Nitrite NEG (NEG) Ur Leukocyte Esterase NEG (NEG) <GUERITA Rose - Last Filed: 11/15/21 21:41> Imaging Data CT scan - abdomen: Attestation: I personally reviewed and interpreted this imaging study as follows: <GUERITA Rose - Last Filed: 11/15/21 21:41> Radiologist's impression: EXAMINATION: CT ABDOMEN AND PELVIS WITH CONTRAST? CLINICAL INFORMATION: 61-year-old female back pain, history of cervical carcinoma? COMPARISON: 05/03/2020? TECHNIQUE: Multidetector volumetric images were obtained from the superior aspect of the liver through the pubic symphysis following administration 85 mL of Omnipaque 350 intravenous contrast. Sagittal and coronal reformatted images were obtained on the technologist's workstation.? Oral contrast: No This CT examination was performed using dose optimization techniques as appropriate, variously including the following: *Automated exposure control *Adjustment of mA and/or kV according to patient size (this includes techniques or standardized protocols for targeted exams where dose is matched to indication/reason for exam; i.e. extremities or head) *Use of iterative reconstruction technique DLP: 641 mGy-cm FINDINGS: LUNG BASES: There is linear scarring in the and right middle lobe? LIVER, GALLBLADDER, AND BILIARY TREE: The liver is normal in size, shape, and attenuation. No focal hepatic lesion or biliary ductal dilatation is present. The gallbladder is unremarkable with no evidence of radiopaque gallstones, gallbladder wall thickening, or obvious pericholecystic inflammatory changes.? PANCREAS: Unremarkable.? SPLEEN: Unremarkable.? ADRENAL GLANDS: Unremarkable.? KIDNEYS AND URETERS: Left kidney revealed 1.3 cm cortical cyst in upper pole. Left kidney demonstrates nonobstructing 2 mm stone. There is no hydroureteronephrosis.? BLADDER: Unremarkable.? GASTROINTESTINAL TRACT: The small and large bowel are unremarkable. The appendix is unremarkable.? ABDOMINAL WALL: There is small fat-containing umbilical hernia.? LYMPH NODES: Normal. VASCULAR: Unremarkable. PELVIC VISCERA: Patient is status post total hysterectomy.? OSSEOUS STRUCTURES: There are mild multilevel degenerative changes in lumbar and distal thoracic spine? CT/CT abdomen pelvis w con IMPRESSION: No acute abnormalities. Status post hysterectomy. Small cyst left kidney and nonobstructing stone in the right kidney.? ? Fleischner guidelines were followed. Dictatedd By: Nancy Rosen MD Signed By: Electronically signed by Nancy Rosen MD 11/15/212019 <GUERITA Rose - Last Filed: 11/15/21 21:41> Discharge Plan Discharge Clinical Impression: Self-catheterizes urinary bladder, Abdominal pain <GUERITA Lindsay - Last Filed: 11/15/21 18:30> Patient Disposition: Home, Self-Care <GUERITA Lindsay - Last Filed: 11/15/21 18:30> Instructions: Abdominal Pain (ED) <GUERITA Lindsay - Last Filed: 11/15/21 18:30> Additional Instructions: Follow up with your primary care provider. Return to the emergency department immediately if your symptoms worsen or if you develop any dizziness, shortness of breath, difficulty breathing, chest pain, blurry vision, loss of vision, nausea, vomiting, abdominal pain, fever, chills, back pain, or any other complaints. <GUERITA Lindsay - Last Filed: 11/15/21 18:30> Prescriptions: No Action fluticasone propionate [Flovent Diskus] 100 mcg/actuation blister with device 2 inh PO BID Qty: 60 3RF cyclobenzaprine 10 mg tablet 10 mg PO TID PRN (Reason: back pain) Qty: 20 0RF lisinopril 20 mg tablet 20 mg PO DAILY 0RF naproxen [Naprosyn] 500 mg tablet 500 mg PO BID 0RF albuterol sulfate [ProAir HFA] 90 mcg/actuation HFA aerosol inhaler 2 puff inhalation Q4-6H PRN (Reason: shortness of breath or wheezing) 30 Days Qty: 8.5 3RF <GUERITA Lindsay - Last Filed: 11/15/21 18:30> Referrals: Lilly Cowart MD [Primary Care Provider] - 2 days <GUERITA Lindsay - Last Filed: 11/15/21 18:30> Interventions: ED Discharge Assessment Last Done: 11/15/21 21:06 <GUERITA Lindsay - Last Filed: 11/15/21 18:30> Discharge Date/Time: 11/15/21 21:15 <GUERITA Lindsay - Last Filed: 11/15/21 18:30> Print Language: [place] <GUERITA Lindsay - Last Filed: 11/15/21 18:30>
[2021-11-15 18:50] LABS: MANUAL DIFF FLAG NO
[2021-11-15 18:51] LABS: Basophils Percent Auto 0.3 % (0-2); Eosinophils Absolute Auto 0.3 X10*3/uL (0.0-0.4); Eosinophils Percent Auto 2.9 % (0-4); Hematocrit 35.8 % (37.0-47.0); Imm Gran Abs Auto 0.03 X10*3/uL (0.00-0.03); Imm Gran Pct Auto 0.3 % (0.0-0.4); Lymphocytes Absolute Auto 4.1 X10*3/uL (1.2-4.9); Lymphocytes Percent Auto 39.1 % (20-40); Mean Corpuscular HGB Conc 30.7 g/dl (31.0-35.0); Mean Corpuscular Hemoglobin 24.6 pg (27.0-33.0); Mean Corpuscular Volume 80.1 fL (80.0-98.0); Mean Platelet Volume 10.2 fL (9.4-12.3); Monocytes Absolute Auto 0.7 X10*3/uL (0.1-1.2); Monocytes Percent Auto 6.4 % (2-11); Neutrophils Absolute Auto 5.4 x10*3/uL (2.0-8.3); Platelet Count 249 X10*3/uL (160-400); Red Blood Count 4.47 X10*6/uL (4.20-5.50); Red Cell Distribution Width 15.9 % (11.0-16.0); White Blood Count 10.5 X10*3/uL (4.8-10.8)
[2021-11-15 18:54] LABS: Appearance Urine CLEAR; Color Urine YELLOW; Glucose Urine UA NEG (NEG); Leukocyte Esterase Urine NEG (NEG); Nitrite Urine NEG (NEG); PH 6.5 (5.0-8.0); Urine Blood NEG (NEG); Urine Ketones NEG (NEG); Urine Protein NEG (NEG-TRACE)
[2021-11-15 18:58] LABS: Prothrombin Time 11.4 SEC (9.9-13.0)
[2021-11-15 19:02] LABS: Lactic Acid 0.6 mmol/L (0.5-2.0)
[2021-11-15 19:07] LABS: Alanine Aminotransferase 13 U/L (0-31); Albumin Level 4.2 g/dL (3.5-5.0); Alkaline Phosphatase 99 U/L (39-117); Anion Gap 12 (12-20); Aspartate Amino Transferase 17 U/L (5-31); Bilirubin Total 0.2 mg/dL (0.0-1.0); Blood Urea Nitrogen 19 mg/dL (9-16); Calcium 9.6 mg/dL (8.4-10.2); Carbon Dioxide 26 mmol/L (22-29); Chloride 106 mmol/L (96-108); Creatinine Clr Calc Pharmacy 78.9; Estimated Glomerular Filt Rate > 60; Glucose Random 85 mg/dL (60-115); Magnesium 2.1 mg/dL (1.6-2.6); Potassium 4.6 mmol/L (3.3-5.1); Sodium 139 mmol/L (135-145); Total Protein 7.3 g/dL (6.5-8.0)
[2021-11-15] MEDS: 0.9 % Sodium Chloride 1,000 ML 999 ML IVCONT (19:07)
[2021-11-15] MEDS: iohexoL 350 MG/ML 100 ML INFUS..BTL IV (19:39)
[2021-11-15] MEDS: Morphine Sulfate 4 MG/ML CARTRIDGE IVPUSH (19:52)
[2021-11-15 20:35] VITALS: BP 180/99; PULSE 84; RESP 16; O2SAT 100
== END 2021-11-15 21:15 | disposition home or self-care (01) ==
PROVIDERS: Emergency Medicine; Physician Assistant Medical; Emergency Provider Emergency Medicine Emergency Medical Services; PCP General Practice
DX: R10.9 Unspecified abdominal pain (principal); M79.10 Myalgia, unspecified site; I10 Essential (primary) hypertension; M54.50 Low back pain, unspecified; R25.2 Cramp and spasm; R51.9 Headache, unspecified; Z79.899 Other long term (current) drug therapy
CPT/HCPCS: 36415; 74177; 80053; 81003; 83605; 83735; 85025; 85610; 87040; 96361; 96374; 96375; 99284; J2270; Q9967

== ENCOUNTER 2022-02-12 15:06 | Emergency (ER) | payer MEDICAID, SELFPAY ==
--- NOTE | ~2022-02-12 | XR_ITS ---
EXAMINATION: X-RAY RIGHT KNEE X-RAY LEFT KNEE CLINICAL INFORMATION: Pain. COMPARISON: Radiograph of the right knee dated from 02/06/2018. Radiograph of the left knee dated from 05/17/2017. TECHNIQUE: 4 views of each knee. FINDINGS: Right knee: There is a total right knee arthroplasty without evidence of hardware failure. No acute fractures or malalignment. No joint effusion. No unexpected radiopaque foreign bodies. Left knee: No acute fractures or malalignment. Severe tricompartmental degenerative osteoarthritis with joint space narrowing, subcortical sclerosis and osteophytes. No erosions or chondrocalcinosis. Small joint effusion. XR/XR knee LT 3V IMPRESSION: 1. Intact right knee arthroplasty. 2. No acute fractures or malalignment. 3. Severe tricompartmental degenerative changes of the left knee. 4. Small left knee joint effusion.
--- NOTE | ~2022-02-12 | US_ITS ---
EXAMINATION: US VENOUS ULTRASOUND WITH DOPPLER LOWER EXTREMITY, BILATERAL CLINICAL INFORMATION: Calf swelling status post surgery COMPARISON: None TECHNIQUE: Ultrasound of the deep veins is performed from the hip to the calf with compression sonography and color and pulse Doppler assessment. Spectral analysis with color-flow imaging is performed. FINDINGS: RIGHT: There is normal venous compression and respiratory variation and augmented flow. The visualized common femoral vein, superficial femoral vein, profunda femoral vein, popliteal vein, and the trifurcation region shows no evidence of deep venous thrombosis. There is no significant popliteal fossa cyst. LEFT: There is normal venous compression and respiratory variation and augmented flow. The visualized common femoral vein, superficial femoral vein, profunda femoral vein, popliteal vein, and the trifurcation region shows no evidence of deep venous thrombosis. There is no significant popliteal fossa cyst. If the patient's symptoms persist, followup ultrasound in 5 days 7 days might be of value to exclude proximal propagation from a non-visualized calf vein. US/US venous duplex LE BI IMPRESSION: No DVT demonstrated in the bilateral lower extremity.
--- NOTE | ~2022-02-12 | XR_ITS ---
EXAMINATION: X-RAY RIGHT KNEE X-RAY LEFT KNEE CLINICAL INFORMATION: Pain. COMPARISON: Radiograph of the right knee dated from 02/06/2018. Radiograph of the left knee dated from 05/17/2017. TECHNIQUE: 4 views of each knee. FINDINGS: Right knee: There is a total right knee arthroplasty without evidence of hardware failure. No acute fractures or malalignment. No joint effusion. No unexpected radiopaque foreign bodies. Left knee: No acute fractures or malalignment. Severe tricompartmental degenerative osteoarthritis with joint space narrowing, subcortical sclerosis and osteophytes. No erosions or chondrocalcinosis. Small joint effusion. XR/XR knee RT 3V IMPRESSION: 1. Intact right knee arthroplasty. 2. No acute fractures or malalignment. 3. Severe tricompartmental degenerative changes of the left knee. 4. Small left knee joint effusion.
[2022-02-12 15:58] VITALS: BP 185/75; PULSE 83; RESP 20; TEMP 36.9; O2SAT 98; BMI 28.3
--- NOTE | 2022-02-12 18:10 | ED.GENADULT ---
HPI - General Adult General Chief complaint: Extremity Injury, Lower Stated complaint: Numbness Tingling Both Legs Time Seen by Provider: 02/12/22 16:19 History of Present Illness HPI narrative: Patient complains of several days of increased tingling in both lower legs similar to prior episodes from sciatica, she also complains of increasing posterior leg pain in both legs, especially the right leg which since a knee replacement 1 year ago has become swollen in the lower leg, and she has had increasing calf pain and lower leg pain in the left leg as well over recent weeks She denies shortness of breath she denies muscle weakness she denies loss of sensation she denies any changes to bowel or bladder Related Data Home Medications Medication Instructions Recorded Confirmed lisinopril 20 mg tablet 20 mg PO DAILY 08/03/20 naproxen 500 mg tablet (Naprosyn) 500 mg PO BID 08/03/20 Previous Rx's Medication Instructions Recorded cyclobenzaprine 10 mg tablet 10 mg PO TID PRN #20 tab 07/10/20 albuterol sulfate 90 mcg/actuation 2 puff INHALATION Q4-6H PRN 30 08/03/20 aerosol inhaler (ProAir HFA) Days #8.5 g fluticasone propionate 100 2 inh PO BID #60 cap 11/26/20 mcg/actuation blister powder for inhalation (Flovent Diskus) acetaminophen 500 mg tablet 1,000 mg PO QID PRN #30 tab 02/12/22 oxycodone 5 mg tablet 5 mg PO Q6H PRN #20 tab 02/12/22 Allergies Allergy/AdvReac Type Severity Reaction Status Date / Time buspirone [From BuSpar] Allergy Mild TONGUE Verified 02/12/22 15:58 TINGLING, dizziness Motrin Allergy Unknown rash Verified 02/12/22 15:58 ibuprofen [From Motrin] AdvReac Mild HTN Verified 02/12/22 15:58 Review of Systems Review of Systems: Positive for bilateral posterior leg pain and right lower leg swelling as well as bilateral knee pain, back pain and tingling in both legs Negatives no fever no chills no dizziness no weakness no loss of muscle strength no loss of sensation no headache no neck pain no changes to bowel or bladder no dysuria no incontinence no skin rash Yes all other systems are reviewed and are negative PMFSH Past Medical History Source: nursing notes reviewed Medical History Anemia Arthritis Dyspnea on exertion Fibromyalgia, primary History of cervical cancer HTN (hypertension) Migraines Surgical History H/O: hysterectomy Social History Social History Alcohol intake: never Advance Directives: No Advance Directives Information Provided: No Advance Directives Date on File: 12/05/16 Physical Exam ED Vital Signs: Vital Signs - 24 hr 02/12/22 15:58 Temperature 98.5 F Pulse Rate 83 Respiratory Rate 20 Blood Pressure 185/75 H Pulse Oximetry 98 BMI result Body Mass Index 28.3 General appearance is no acute distress Head is normocephalic atraumatic Neck is supple nontender Chest wall nontender Lungs clear to auscultation bilateral The back had lower lumbar tenderness but good range of motion, no CVA tenderness, no focal bony tenderness, no redness no warmth no The extremities are right lower leg had edema as well as calf tenderness and swelling, there was no redness no warmth no wound The right leg is neurovascular intact distal The right knee had some tenderness but again there is no effusion there is no redness no warmth no evidence of septic joint or cellulitis Left leg was normal in appearance but there was tenderness over posterior thigh and posterior calf, skin was otherwise normal and neurovascular intact distal The skin, no rashes Neuro no focal motor or sensory deficits Course Course Course Narrative: With edematous right lower leg as well as tenderness in posterior left and right lower legs ultrasound was ordered to rule out blood clots Because of pain that has been ongoing since the knee replacement in the right leg and x-ray was done of the right knee and because of new onset of pain in the left x-ray was done of the left Right knee x-ray showed the right knee arthroplasty with no obvious abnormalities Left knee showed severe tricompartmental arthritis Discharge Plan Discharge Clinical Impression: Sciatica, Localized osteoarthritis of left knee, Bilateral leg pain Patient Disposition: Home, Self-Care Additional Instructions: X-ray did not show any abnormality with your right knee replacement Left knee x-ray showed lots of arthritis in the left knee Ultrasound did not show any blood clots in the back of her legs Follow with orthopedist for further evaluation of both knees Follow with her doctor for further evaluation of your sciatica, there may be an injection, physical therapy or other treatments that will be helpful Return any concerns Prescriptions: New acetaminophen 500 mg tablet 1,000 mg PO QID PRN (Reason: pain) Qty: 30 0RF oxycodone 5 mg tablet 5 mg PO Q6H PRN (Reason: pain) Qty: 20 0RF No Action fluticasone propionate [Flovent Diskus] 100 mcg/actuation blister with device 2 inh PO BID Qty: 60 3RF cyclobenzaprine 10 mg tablet 10 mg PO TID PRN (Reason: back pain) Qty: 20 0RF lisinopril 20 mg tablet 20 mg PO DAILY 0RF naproxen [Naprosyn] 500 mg tablet 500 mg PO BID 0RF albuterol sulfate [ProAir HFA] 90 mcg/actuation HFA aerosol inhaler 2 puff inhalation Q4-6H PRN (Reason: shortness of breath or wheezing) 30 Days Qty: 8.5 3RF
[2022-02-12] MEDS: Acetaminophen 325 MG TABLET 975 MG PO (19:10)
[2022-02-12] MEDS: oxyCODONE HCl Immed Release 5 MG TABLET PO (19:10)
== END 2022-02-12 19:31 | disposition home or self-care (01) ==
PROVIDERS: Emergency Provider Emergency Medicine Emergency Medical Services
DX: M54.42 Lumbago with sciatica, left side (principal); M79.605 Pain in left leg; M79.604 Pain in right leg; R60.0 Localized edema; M17.0 Bilateral primary osteoarthritis of knee; Z79.899 Other long term (current) drug therapy
CPT/HCPCS: 73562; 93970; 99283; 99284

== ENCOUNTER 2022-02-24 14:00 | Outpatient (RCR) | payer MEDICAID, SELFPAY | END 2022-03-14 10:14 | disposition home or self-care (01) | LOC: HO.PT 14:00 | PROVIDERS: PCP Nurse Practitioner Primary Care; Visit Provider Nurse Practitioner Primary Care | DX: T84.84XA Pain due to internal orthopedic prosthetic devices, implants and grafts, initial encounter (principal); Z96.651 Presence of right artificial knee joint | CPT/HCPCS: 97110; 97140; 97161 ==

== ENCOUNTER 2022-03-02 06:29 | Outpatient (REF) | payer MEDICAID, SELFPAY | END 2022-03-02 06:30 | disposition home or self-care (01) | LOC: HO.HOSX 06:29 | PROVIDERS: Visit Provider Orthopaedic Surgery | DX: Z13.89 Encounter for screening for other disorder (principal) ==

== ENCOUNTER 2022-05-02 14:35 | Emergency (ER) | payer MEDICAID, SELFPAY ==
--- NOTE | ~2022-05-02 | XR_ITS ---
EXAMINATION: XR CHEST CLINICAL INFORMATION: Chest pain COMPARISON: Previous chest x-ray most recent July 2020 TECHNIQUE: 2 views of the chest were obtained. FINDINGS: The cardiac and mediastinal contours are stable. The lungs are clear. There is no pleural effusion or pneumothorax. There are degenerative changes of the spine. XR/XR chest 2V IMPRESSION: No evidence for acute disease in the chest.
[2022-05-02 16:13] VITALS: BP 169/86; PULSE 72; RESP 16; TEMP 36.2; O2SAT 100; BMI 28.8
--- NOTE | 2022-05-02 16:21 | ECG_ITS ---
Test Reason : CHEST PAIN Blood Pressure : / mmHG Vent. Rate : 075 BPM Atrial Rate : 075 BPM P-R Int : 148 ms QRS Dur : 088 ms QT Int : 380 ms P-R-T Axes : 048 -12 023 degrees QTc Int : 424 ms Normal sinus rhythm Minimal voltage criteria for LVH, may be normal variant ( R in aVL ) Borderline ECG When compared with ECG of 28-JUN-2020 16:14, No significant change was found Referred By: Generic ED Physician Electronically Signed By:BLAYNE SRINIVASAN
[2022-05-02 16:47] LABS: MANUAL DIFF FLAG NO
[2022-05-02 16:50] LABS: Basophils Absolute Auto 0.1 X10*3/uL (0.0-0.2); Basophils Percent Auto 0.5 % (0-2); Eosinophils Absolute Auto 0.4 X10*3/uL (0.0-0.4); Eosinophils Percent Auto 3.3 % (0-4); Hematocrit 35.7 % (37.0-47.0); Imm Gran Abs Auto 0.04 X10*3/uL (0.00-0.03); Imm Gran Pct Auto 0.4 % (0.0-0.4); Lymphocytes Absolute Auto 4.2 X10*3/uL (1.2-4.9); Lymphocytes Percent Auto 38.9 % (20-40); Mean Corpuscular HGB Conc 30.8 g/dl (31.0-35.0); Mean Corpuscular Hemoglobin 24.4 pg (27.0-33.0); Mean Corpuscular Volume 79.2 fL (80.0-98.0); Mean Platelet Volume 11.2 fL (9.4-12.3); Monocytes Absolute Auto 0.9 X10*3/uL (0.1-1.2); Monocytes Percent Auto 8.1 % (2-11); Neutrophils Absolute Auto 5.2 x10*3/uL (2.0-8.3); Neutrophils Percent Auto 48.8 % (45-73); Platelet Count 243 X10*3/uL (160-400); Red Blood Count 4.51 X10*6/uL (4.20-5.50); Red Cell Distribution Width 16.3 % (11.0-16.0); White Blood Count 10.7 X10*3/uL (4.8-10.8)
[2022-05-02 17:10] LABS: Anion Gap 13 (12-20); Blood Urea Nitrogen 16 mg/dL (9-16); Calcium 9.1 mg/dL (8.4-10.2); Carbon Dioxide 24 mmol/L (22-29); Chloride 107 mmol/L (96-108); Creatinine Clr Calc Pharmacy 71.1; Estimated Glomerular Filt Rate > 60; Glucose Random 90 mg/dL (60-115); Potassium 4.4 mmol/L (3.3-5.1); Sodium 140 mmol/L (135-145)
[2022-05-02 17:15] LABS: Troponin-I High Sensitivity < 3.5 ng/L (<3.5-17.0)
== END 2022-05-02 19:53 | disposition left against medical advice (07) ==
LOC: HO.ED 19:51
PROVIDERS: Emergency Provider Emergency Medicine
DX: R07.89 Other chest pain (principal); R51.9 Headache, unspecified; Z79.899 Other long term (current) drug therapy
CPT/HCPCS: 36415; 71046; 80048; 84484; 85025; 93005; 99283

== ENCOUNTER 2022-10-11 11:02 | Inpatient (IN) | payer MEDICAID, SELFPAY ==
--- NOTE | ~2022-10-11 | US_ITS ---
EXAMINATION: US VENOUS ULTRASOUND WITH DOPPLER LOWER EXTREMITY, RIGHT CLINICAL INFORMATION: Cellulitis, pain and erythema COMPARISON: Bilateral venous Doppler 12/13/2021 TECHNIQUE: Ultrasound of the deep veins is performed from the hip to the calf with compression sonography and color and pulse Doppler assessment. Spectral analysis with color-flow imaging is performed. FINDINGS: There is normal venous compression and respiratory variation and augmented flow. The visualized common femoral vein, superficial femoral vein, profunda femoral vein, popliteal vein, and the trifurcation region shows no evidence of deep venous thrombosis. There is no significant popliteal fossa cyst. The contralateral left common femoral vein appears normal. If the patient's symptoms persist, followup ultrasound in 5 days 7 days might be of value to exclude proximal propagation from a non-visualized calf vein. US/US venous duplex LE RT IMPRESSION: No DVT demonstrated in the right lower extremity.
--- NOTE | ~2022-10-11 | XR_ITS ---
EXAMINATION: XR KNEE, RIGHT CLINICAL INFORMATION: Knee swelling COMPARISON: 02/12/2022 TECHNIQUE: 2 views of the right knee. FINDINGS: Total right knee arthroplasty. The femoral component articulates appropriately with the tibial and patellar components. Low positioning of the patella is unchanged from previous imaging. No periprosthetic lucency or fracture. No joint effusion. Diffuse soft tissue edema. XR/XR knee RT 2V IMPRESSION: Total right knee arthroplasty without evidence of failure. Diffuse soft tissue edema.
[2022-10-11 11:06] VITALS: BP 179/90; PULSE 110; RESP 18; TEMP 36.6; O2SAT 98; BMI 27.4
--- NOTE | 2022-10-11 11:08 | ED.EXTPRO ---
HPI - Extremity Problem General Chief complaint: Extremity Problem <GUERITA Lindsay - Last Filed: 10/11/22 11:12> Stated complaint: leg swelling, pain <GUERITA Lindsay - Last Filed: 10/11/22 11:12> Time Seen by Provider: 10/11/22 11:18 <GUERITA Lindsay - Last Filed: 10/11/22 11:12> Source: patient <Silvio Martínez MD - Last Filed: 10/11/22 13:27> Mode of arrival: ambulatory <Silvio Martínez MD - Last Filed: 10/11/22 13:27> Limitations: no limitations <Silvio Martínez MD - Last Filed: 10/11/22 13:27> History of Present Illness HPI Narrative: 62yoF c PMHx of cellulitis to R leg recently Admitted at [facility] on 08/25/22 for right leg cellulitis and was discharged home on Keflex and reports her symptoms got better up until a few days ago. She reports the right lower leg pain is now radiating up her leg and it feels numb. She reports it is really swollen and red. She denies any fevers, dizziness, chest pain or shortness of breath or any other symptoms complaints or concerns at this time. The leg has been hurting now for 3 days. <Silvio Martínez MD - Last Filed: 10/11/22 13:27> MD Complaint: extremity swelling <Silvio Martínez MD - Last Filed: 10/11/22 13:27> Onset (ago): day(s) <Silvio Martínez MD - Last Filed: 10/11/22 13:27> Pain Consistency: constant <Silvio Martínez MD - Last Filed: 10/11/22 13:27> Location: right <Silvio Martínez MD - Last Filed: 10/11/22 13:27> Quality: burning <Silvio Martínez MD - Last Filed: 10/11/22 13:27> Exacerbating factors: nothing <Silvio Martínez MD - Last Filed: 10/11/22 13:27> Associated symptoms: rash and other (chills) <Silvio Martínez MD - Last Filed: 10/11/22 13:27> Related Data Home medications: Home Medications Medication Instructions Recorded Confirmed lisinopril 20 mg tablet 20 mg PO DAILY 08/03/20 naproxen 500 mg tablet (Naprosyn) 500 mg PO BID 08/03/20 Previous Rx's Medication Instructions Recorded cyclobenzaprine 10 mg tablet 10 mg PO TID PRN back pain #20 tabs 07/10/20 albuterol sulfate 90 mcg/actuation 2 puff inhalation Q4-6H PRN 08/03/20 aerosol inhaler (ProAir HFA) shortness of breath or wheezing 30 days #8.5 grams fluticasone propionate 100 2 inh PO BID #60 caps 11/26/20 mcg/actuation blister powder for inhalation (Flovent Diskus) acetaminophen 500 mg tablet 1,000 mg PO QID PRN pain #30 tabs 02/12/22 oxycodone 5 mg tablet 5 mg PO Q6H PRN pain #20 tabs 02/12/22 <GUERITA Lindsay - Last Filed: 10/11/22 11:12> Allergies/Adverse reactions: Allergies Allergy/AdvReac Type Severity Reaction Status Date / Time buspirone [From BuSpar] Allergy Mild TONGUE Verified 05/02/22 16:13 [place]LING, dizziness Motrin Allergy Unknown rash Verified 05/02/22 16:13 ibuprofen [From Motrin] AdvReac Mild HTN Verified 05/02/22 16:13 <GUERITA Lindsay - Last Filed: 10/11/22 11:12> Review of Systems Review of Systems: Yes all other systems are reviewed and are negative <Silvio Martínez MD - Last Filed: 10/11/22 13:27> Musculoskeletal: Comments: right leg with swelling and pain <Silvio Martínez MD - Last Filed: 10/11/22 13:27> Neurologic: Denies Sensory deficit (Neuro) <Silvio Martínez MD - Last Filed: 10/11/22 13:27> [facility] Past Medical History Medical History: Medical History Anemia Arthritis Dyspnea on exertion Fibromyalgia, primary History of cervical cancer HTN (hypertension) Migraines <GUERITA Lindsay - Last Filed: 10/11/22 11:12> Surgical History: Surgical History H/O: hysterectomy <GUERITA Lindsay - Last Filed: 10/11/22 11:12> Social History Social History: Social History Alcohol intake: never Advance Directives: No Advance Directives Date on File: 12/05/16 <GUERITA Lindsay - Last Filed: 10/11/22 11:12> Physical Exam Vital Signs: Vital Signs: Last Vital Signs Temp 98.7 F 10/11/22 13:07 Pulse 79 10/11/22 13:07 Resp 18 10/11/22 13:07 BP 176/81 H 10/11/22 13:07 Pulse Ox 100 10/11/22 13:07 O2 Del Method 10/11/22 13:07 BMI result Body Mass Index 27.4 <GUERITA Lindsay - Last Filed: 10/11/22 11:12> Vital Signs: Last Vital Signs Temp 98.7 F 10/11/22 13:07 Pulse 79 10/11/22 13:07 Resp 18 10/11/22 13:07 BP 176/81 H 10/11/22 13:07 Pulse Ox 100 10/11/22 13:07 O2 Del Method 10/11/22 13:07 BMI result Body Mass Index 27.4 <Silvio Martínez MD - Last Filed: 10/11/22 13:27> Const: General: healthy appearing <Silvio Martínez MD - Last Filed: 10/11/22 13:27> Nutritional Appearance: average body habitus <Silvio Martínez MD - Last Filed: 10/11/22 13:27> Orientation/consciousness: oriented to person and patient oriented x3 <Silvio Martíenz MD - Last Filed: 10/11/22 13:27> Limitations: no limitations <Silvio Martínez MD - Last Filed: 10/11/22 13:27> HEENT: Head: Yes normal to inspection <Silvio Martínez MD - Last Filed: 10/11/22 13:27> Ears: external ears normal <Silvio Martínez MD - Last Filed: 10/11/22 13:27> General nose exam: Normal external nose present <Silvio Marítnez MD - Last Filed: 10/11/22 13:27> Mouth: Normal oral and palatal mucosa present and oropharynx normal <Silvio Martínez MD - Last Filed: 10/11/22 13:27> Throat: Yes posterior oropharynx normal <Silvio Martínez MD - Last Filed: 10/11/22 13:27> Eyes: General: appearance normal, both eyes and all related structures <Silvio Martínez MD - Last Filed: 10/11/22 13:27> Neck: Other: supple <Silvio Martínez MD - Last Filed: 10/11/22 13:27> Neck: Yes normal visual inspection <Silvio Martínez MD - Last Filed: 10/11/22 13:27> Chest: Chest palpation & inspection: normal inspection of the chest <Silvio Martínez MD - Last Filed: 10/11/22 13:27> Resp: Auscultation: clear to auscultation bilaterally <Silvio Martínez MD - Last Filed: 10/11/22 13:27> Cardio: Jugular venous distension: no JVD <Silvio Martínez MD - Last Filed: 10/11/22 13:27> Rate: regular rate <Silvio Martínez MD - Last Filed: 10/11/22 13:27> Rhythm: regular rhythm <Silvio Martínez MD - Last Filed: 10/11/22 13:27> Heart sounds: S1 normal heart sound present and S2 normal heart sound present <Silvio Martínez MD - Last Filed: 10/11/22 13:27> GI: Inspection: Yes normal to inspection <Silvio Martínez MD - Last Filed: 10/11/22 13:27> Palpation (GI): Soft to palpation, nontender and No hepatosplenomegaly present <Silvio Martínez MD - Last Filed: 10/11/22 13:27> Auscultation: normal bowel sounds <Silvio Martínez MD - Last Filed: 10/11/22 13:27> : General: Yes no CVA tenderness <Silvio Martínez MD - Last Filed: 10/11/22 13:27> Back/Spine/Pelvis: Back: no CVA tenderness <Silvio Martínez MD - Last Filed: 10/11/22 13:27> Skin: Other: right leg with swelling and erythema going up into thigh <Silvio Martínez MD - Last Filed: 10/11/22 13:27> Neuro: General: oriented to person and patient oriented x3 <Silvio Martínez MD - Last Filed: 10/11/22 13:27> Cranial nerves: Yes CN's II-XII intact bilaterally <Silvio Martínez MD - Last Filed: 10/11/22 13:27> Motor exam (neuro): 5/5 motor strength present throughout <Silvio Martínez MD - Last Filed: 10/11/22 13:27> Sensory Exam: No Sensory deficit (Neuro) <Silvio Martínez MD - Last Filed: 10/11/22 13:27> Extrem: General: Yes normal to inspection <Silvio Martínez MD - Last Filed: 10/11/22 13:27> Psych: Appearance: grossly normal <Silvio Martínez MD - Last Filed: 10/11/22 13:27> Course Course Course Narrative: RME- 62yoF c PMHx of cellulitis to R leg recently Admitted at [facility] on 08/25/22 for right leg cellulitis and was discharged home on Keflex and reports her symptoms got better up until a few days ago. She reports the right lower leg pain is now radiating up her leg and it feels numb. She reports it is really swollen and red. She denies any fevers, dizziness, chest pain or shortness of breath or any other symptoms complaints or concerns at this time. On exam patient has distal pedal pulses and there is no cyanosis noted she has normal capillary refill to the toenails. Although she does have cellulitis at the foot going up to the ankle to the tilley area with moderate soft tissue swelling and tenderness palpation. She is also noted to have lower extremity edema. And some calf tenderness. At this time patient will be brought to the ER for further evaluation treatment, labs, blood cultures, lactic acid, venous duplex ultrasound of right lower extremity ordered along with a L of IV fluids and Zosyn. <GUERITA Lindsay - Last Filed: 10/11/22 11:12> Reevaluation(s) Reevaluation #1: No DVT will admit for cellulitis which is rapidly expanding <Silvio Martínez MD - Last Filed: 10/11/22 13:27> Time: 12:29 <Silvio Martínez MD - Last Filed: 10/11/22 13:27> Medications Administered Discontinued Medications Generic Name Dose Route Start Last Admin Trade Name Freq PRN Reason Stop Dose Admin Sodium Chloride 1,000 mls @ 999 mls/hr 10/11/22 11:15 10/11/22 12:27 Ns IVCONT 10/11/22 12:15 999 mls/hr .Q1H1M HAILEY Administration Piperacillin Sod/Tazobactam 50 mls @ 100 mls/hr 10/11/22 11:10 10/11/22 12:27 Sod 3.375 gm/ Sodium Chloride IV 10/11/22 11:39 100 mls/hr ONCE ONE Administration <GUERITA Lindsay - Last Filed: 10/11/22 11:12> Medications Administered Discontinued Medications Generic Name Dose Route Start Last Admin Trade Name Freq PRN Reason Stop Dose Admin Sodium Chloride 1,000 mls @ 999 mls/hr 10/11/22 11:15 10/11/22 12:27 Ns IVCONT 10/11/22 12:15 999 mls/hr .Q1H1M HAILEY Administration Piperacillin Sod/Tazobactam 50 mls @ 100 mls/hr 10/11/22 11:10 10/11/22 12:27 Sod 3.375 gm/ Sodium Chloride IV 10/11/22 11:39 100 mls/hr ONCE ONE Administration <Silvio Martínez MD - Last Filed: 10/11/22 13:27> Medical Decision Making Differential Diagnosis cellulitis, DVT, superficial thrombophlebitis were all considered <Silvio Martínez MD - Last Filed: 10/11/22 13:27> Consult Healthcare Provider Management of the patient was discussed with: Hospitalist <Silvio Martínez MD - Last Filed: 10/11/22 13:27> Lab Data Result Diagrams: 10/11/22 11:38 10/11/22 11:38 <GUERITA Lindsay - Last Filed: 10/11/22 11:12> Labs: Lab Results 10/11/22 10/11/22 10/11/22 Range/Units 11:38 11:38 11:38 WBC 12.0 H (4.8-10.8) X10*3/uL RBC 4.60 (4.20-5.50) X10*6/uL Hgb 11.0 L (12.0-16.0) g/dl Hct 36.0 L (37.0-47.0) % MCV 78.3 L (80.0-98.0) fL MCH 23.9 L (27.0-33.0) pg MCHC 30.6 L (31.0-35.0) g/dl RDW 16.9 H (11.0-16.0) % Plt Count 246 (160-400) X10*3/uL MPV 10.3 (9.4-12.3) fL Immature Gran % (Auto) 0.3 (0.0-0.4) % Neut % (Auto) 69.8 (45-73) % Lymph % (Auto) 21.8 (20-40) % [place] % (Auto) 5.8 (2-11) % Eos % (Auto) 2.0 (0-4) % Baso % (Auto) 0.3 (0-2) % Lymph # (Auto) 2.6 (1.2-4.9) X10*3/uL [place] # (Auto) 0.7 (0.1-1.2) X10*3/uL Eos # (Auto) 0.2 (0.0-0.4) X10*3/uL Baso # (Auto) 0.0 (0.0-0.2) X10*3/uL Abs Immat Gran (auto) 0.04 H (0.00-0.03) X10*3/uL Absolute Neuts (auto) 8.4 H (2.0-8.3) x10*3/uL Absolute Nucleated RBC 0.000 (0.0-0.012) X10*3/uL Nucleated RBC % (auto) 0.0 (0.0-0.2) /100WBC PT 11.5 (10.0-13.1) SEC INR 1.0 (0.9-1.1) Sodium 140 (135-145) mmol/L Potassium 3.9 (3.3-5.1) mmol/L Chloride 108 (96-108) mmol/L Carbon Dioxide 22 (22-29) mmol/L Anion Gap 14 (12-20) BUN 16 (9-16) mg/dL Creatinine 0.70 (0.5-1.4) mg/dL Estim Creat Clear Calc 83.4 Estimated GFR > 60 Random Glucose 86 (60-115) mg/dL Lactic Acid (0.5-2.0) mmol/L Calcium 9.5 (8.4-10.2) mg/dL Magnesium 1.8 (1.6-2.6) mg/dL Total Bilirubin 0.3 (0.0-1.0) mg/dL AST 20 (5-31) U/L ALT 19 (0-31) U/L Alkaline Phosphatase 114 (39-117) U/L Total Protein 7.3 (6.5-8.0) g/dL Albumin 4.1 (3.5-5.0) g/dL Influenza Type A (PCR) (Negative) Influenza Type B (PCR) (Negative) RSV RNA Qual (PCR) (Negative) SARS-CoV-2 RNA (RT-PCR) (Negative) 10/11/22 10/11/22 Range/Units 11:39 11:39 WBC (4.8-10.8) X10*3/uL RBC (4.20-5.50) X10*6/uL Hgb (12.0-16.0) g/dl Hct (37.0-47.0) % MCV (80.0-98.0) fL MCH (27.0-33.0) pg MCHC (31.0-35.0) g/dl RDW (11.0-16.0) % Plt Count (160-400) X10*3/uL MPV (9.4-12.3) fL Immature Gran % (Auto) (0.0-0.4) % Neut % (Auto) (45-73) % Lymph % (Auto) (20-40) % [place] % (Auto) (2-11) % Eos % (Auto) (0-4) % Baso % (Auto) (0-2) % Lymph # (Auto) (1.2-4.9) X10*3/uL [place] # (Auto) (0.1-1.2) X10*3/uL Eos # (Auto) (0.0-0.4) X10*3/uL Baso # (Auto) (0.0-0.2) X10*3/uL Abs Immat Gran (auto) (0.00-0.03) X10*3/uL Absolute Neuts (auto) (2.0-8.3) x10*3/uL Absolute Nucleated RBC (0.0-0.012) X10*3/uL Nucleated RBC % (auto) (0.0-0.2) /100WBC PT (10.0-13.1) SEC INR (0.9-1.1) Sodium (135-145) mmol/L Potassium (3.3-5.1) mmol/L Chloride (96-108) mmol/L Carbon Dioxide (22-29) mmol/L Anion Gap (12-20) BUN (9-16) mg/dL Creatinine (0.5-1.4) mg/dL Estim Creat Clear Calc Estimated GFR Random Glucose (60-115) mg/dL Lactic Acid 1.0 (0.5-2.0) mmol/L Calcium (8.4-10.2) mg/dL Magnesium (1.6-2.6) mg/dL Total Bilirubin (0.0-1.0) mg/dL AST (5-31) U/L ALT (0-31) U/L Alkaline Phosphatase (39-117) U/L Total Protein (6.5-8.0) g/dL Albumin (3.5-5.0) g/dL Influenza Type A (PCR) NEGATIVE (Negative) Influenza Type B (PCR) NEGATIVE (Negative) RSV RNA Qual (PCR) NEGATIVE (Negative) SARS-CoV-2 RNA (RT-PCR) NEGATIVE (Negative) <GUERITA Lindsay - Last Filed: 10/11/22 11:12> Lab Results 10/11/22 10/11/22 10/11/22 Range/Units 11:38 11:38 11:38 WBC 12.0 H (4.8-10.8) X10*3/uL RBC 4.60 (4.20-5.50) X10*6/uL Hgb 11.0 L (12.0-16.0) g/dl Hct 36.0 L (37.0-47.0) % MCV 78.3 L (80.0-98.0) fL MCH 23.9 L (27.0-33.0) pg MCHC 30.6 L (31.0-35.0) g/dl RDW 16.9 H (11.0-16.0) % Plt Count 246 (160-400) X10*3/uL MPV 10.3 (9.4-12.3) fL Immature Gran % (Auto) 0.3 (0.0-0.4) % Neut % (Auto) 69.8 (45-73) % Lymph % (Auto) 21.8 (20-40) % [place] % (Auto) 5.8 (2-11) % Eos % (Auto) 2.0 (0-4) % Baso % (Auto) 0.3 (0-2) % Lymph # (Auto) 2.6 (1.2-4.9) X10*3/uL [place] # (Auto) 0.7 (0.1-1.2) X10*3/uL Eos # (Auto) 0.2 (0.0-0.4) X10*3/uL Baso # (Auto) 0.0 (0.0-0.2) X10*3/uL Abs Immat Gran (auto) 0.04 H (0.00-0.03) X10*3/uL Absolute Neuts (auto) 8.4 H (2.0-8.3) x10*3/uL Absolute Nucleated RBC 0.000 (0.0-0.012) X10*3/uL Nucleated RBC % (auto) 0.0 (0.0-0.2) /100WBC PT 11.5 (10.0-13.1) SEC INR 1.0 (0.9-1.1) Sodium 140 (135-145) mmol/L Potassium 3.9 (3.3-5.1) mmol/L Chloride 108 (96-108) mmol/L Carbon Dioxide 22 (22-29) mmol/L Anion Gap 14 (12-20) BUN 16 (9-16) mg/dL Creatinine 0.70 (0.5-1.4) mg/dL Estim Creat Clear Calc 83.4 Estimated GFR > 60 Random Glucose 86 (60-115) mg/dL Lactic Acid (0.5-2.0) mmol/L Calcium 9.5 (8.4-10.2) mg/dL Magnesium 1.8 (1.6-2.6) mg/dL Total Bilirubin 0.3 (0.0-1.0) mg/dL AST 20 (5-31) U/L ALT 19 (0-31) U/L Alkaline Phosphatase 114 (39-117) U/L Total Protein 7.3 (6.5-8.0) g/dL Albumin 4.1 (3.5-5.0) g/dL Influenza Type A (PCR) (Negative) Influenza Type B (PCR) (Negative) RSV RNA Qual (PCR) (Negative) SARS-CoV-2 RNA (RT-PCR) (Negative) 10/11/22 10/11/22 Range/Units 11:39 11:39 WBC (4.8-10.8) X10*3/uL RBC (4.20-5.50) X10*6/uL Hgb (12.0-16.0) g/dl Hct (37.0-47.0) % MCV (80.0-98.0) fL MCH (27.0-33.0) pg MCHC (31.0-35.0) g/dl RDW (11.0-16.0) % Plt Count (160-400) X10*3/uL MPV (9.4-12.3) fL Immature Gran % (Auto) (0.0-0.4) % Neut % (Auto) (45-73) % Lymph % (Auto) (20-40) % [place] % (Auto) (2-11) % Eos % (Auto) (0-4) % Baso % (Auto) (0-2) % Lymph # (Auto) (1.2-4.9) X10*3/uL [place] # (Auto) (0.1-1.2) X10*3/uL Eos # (Auto) (0.0-0.4) X10*3/uL Baso # (Auto) (0.0-0.2) X10*3/uL Abs Immat Gran (auto) (0.00-0.03) X10*3/uL Absolute Neuts (auto) (2.0-8.3) x10*3/uL Absolute Nucleated RBC (0.0-0.012) X10*3/uL Nucleated RBC % (auto) (0.0-0.2) /100WBC PT (10.0-13.1) SEC INR (0.9-1.1) Sodium (135-145) mmol/L Potassium (3.3-5.1) mmol/L Chloride (96-108) mmol/L Carbon Dioxide (22-29) mmol/L Anion Gap (12-20) BUN (9-16) mg/dL Creatinine (0.5-1.4) mg/dL Estim Creat Clear Calc Estimated GFR Random Glucose (60-115) mg/dL Lactic Acid 1.0 (0.5-2.0) mmol/L Calcium (8.4-10.2) mg/dL Magnesium (1.6-2.6) mg/dL Total Bilirubin (0.0-1.0) mg/dL AST (5-31) U/L ALT (0-31) U/L Alkaline Phosphatase (39-117) U/L Total Protein (6.5-8.0) g/dL Albumin (3.5-5.0) g/dL Influenza Type A (PCR) NEGATIVE (Negative) Influenza Type B (PCR) NEGATIVE (Negative) RSV RNA Qual (PCR) NEGATIVE (Negative) SARS-CoV-2 RNA (RT-PCR) NEGATIVE (Negative) <Silvio Martínez MD - Last Filed: 10/11/22 13:27> Radiology Impression Discussion of test interpretation with radiology: I have reviewed the radiologist's reading. <Silvio Martínez MD - Last Filed: 10/11/22 13:27> Discharge Plan Discharge Clinical Impression: Cellulitis <GUERITA Lindsay - Last Filed: 10/11/22 11:12> Patient Disposition: Admitted As Inpatient <GUERITA Lindsay - Last Filed: 10/11/22 11:12>
--- OUTSIDE RECORDS SUMMARY | 2022-10-11 11:15 | XMS_ITS | Continuity of Care Document ---
:1960 Author Organization [facility] Address [address] [place] [id number]- Care Team Providers Name Role Phone Rolf Zhang MD Primary Care Phys[id number] Date(s): 05/17/20 - 05/24/20 [facility] [address] [place] [id number]- [facility] Attending Physician: Orville Alvarado MD Admitting Physician: Orville Alvarado MD Referring Physician: Rolf Zhang MD Allergies, Adverse Reactions, Alerts Substance Reaction Severity Status busPIRone unclear Active Zomig Active Motrin Zomig Active Buspirone Medications acetaminophen 325 mg oral tablet By Mouth, Every 6 hours, PRN Pain , Mild Pain , Moderate Temperature, 0 Refills, Maintenance, Tablet Start Date: 10/04/13 Status: OrderedAdvair 250 mcg-50 mcg Inhaler 1 puff, Inhalation, 2 times a day, Maintenance, 10/02/13 22:03:54 Start Date: 10/02/13 Status: OrderedAlbuterol 90 mcg Inhaler 2, puffs, Inhalation, Every 4 hours, PRN, Maintenance, 10/04/13 11:14:21 Start Date: 10/04/13 Status: OrderedClaritin 10 mg oral tablet 1 tablet = 10 mg, By Mouth, Daily, # 30 tablet, 0 Refills, Maintenance, Tablet Start Date: 10/02/13 Status: OrderedCompression Stockings See Instructions, # 2 each, Maintenance, surgical, knee length 20-30 mm Hg Dx: right leg swelling, 05/17/20 13:49:00 EDT, Supply Start Date: 05/17/20 Status: Orderedferrous sulfate 325 mg oral tablet 1 tablet = 325 mg, By Mouth, 3 times a day, 0 Refills, Maintenance Start Date: 10/02/13 Status: Orderedmetoprolol 25 mg oral tablet, extended release By Mouth, Daily, 0 Refills, Maintenance, XL Tablet Start Date: 10/04/13 Status: OrderedPaxil 20 mg oral tablet 1 tablet = 20 mg, By Mouth, Daily, # 30 tablet, 0 Refills, Maintenance, Tablet Start Date: 10/02/13 Status: OrderedPriLOSEC OTC 20 mg oral delayed release tablet 1 tablet = 20 mg, By Mouth, Daily, 0 Refills, Maintenance Start Date: 10/02/13 Status: Orderedtramadol 50 mg oral tablet 1 tablet = 50 mg, By Mouth, 3 times a day, PRN as needed for pain, 0 Refills, Maintenance Start Date: 10/02/13 Status: Ordered Problem List Condition Effective Dates Status Health Status Informant Anemia(Confirmed) Active Asthma(Confirmed) Active Chronic kidney disease stage Active 3(Confirmed) Depression(Confirmed) Active Hypertension(Confirmed) Active Hypertension(Confirmed) Active Cervical cancer(Confirmed)1 Active Neurogenic Bladder Nos(Confirmed) Active Breast pain(Confirmed) Active 1status post hysterectomy 1995 Vital Signs Most recent to oldest [Reference Range]: 1 Height 163 cm (05/17/20 8:12 AM) Weight 81.65 kg (05/17/20 8:12 AM) Oxygen Saturation [94-100 %] 98 % (05/17/20 8:12 AM) Pulse Rate [55-90 bpm] 93 bpm *H* (05/17/20 8:12 AM) Body Mass Index [18.5-24.99] 30.73 *>HHI* (05/17/20 8:12 AM) Blood Pressure [90-138/55-84 mm Hg] 110/72 mm Hg (05/17/20 8:12 AM) Blood pressure sites Arm, left (05/17/20 8:12 AM) Weight Obtained Via Standing scale (05/17/20 8:12 AM) Social History Social History Type Response Smoking Status Never smoker entered on: 11/25/14 Sex
--- OUTSIDE RECORDS SUMMARY | 2022-10-11 11:15 | XMS_ITS | Continuity of Care Document ---
:1960 Author Organization [facility] Address [address] [place] [id number]- Care Team Providers Name Role Phone Rolf Zhang MD Primary Care Physician Encounter [facility] Date(s): 12/10/20 - 01/09/[address] [id number] Attending Physician: Not on Staff, Attending MD Admitting Physician: Not on Staff, Admitting MD Referring Physician: Not on Staff, Referring MD Allergies, Adverse Reactions, Alerts Substance Reaction Severity Status busPIRone unclear Active Zomig Active Motrin Zomig Active Buspirone Medications acetaminophen 325 mg oral tablet 650 mg, By Mouth, Every 6 hours, May take OTC not to exceed 3000 mg/day, Refills 0, Maintenance, 12/11/20 9:49:00 EDT, Partial fill upon patient request if the prescription is for a schedule II opioid drug. Start Date: 12/11/20 Status: OrderedAdvair 250 mcg-50 mcg Inhaler 1 puff, Inhalation, 2 times a day, Maintenance, 10/02/13 22:03:54 Start Date: 10/02/13 Status: OrderedAlbuterol 90 mcg Inhaler 2, puffs, Inhalation, Every 4 hours, PRN, Maintenance, 10/04/13 11:14:21 Start Date: 10/04/13 Status: OrderedAspirin Tablet 325 mg, By Mouth, 2 times a day, Refills 0, Maintenance, 12/11/20 9:49:00 EDT, Partial fill upon patient request if the prescription is for a schedule II opioid drug. Start Date: 12/11/20 Status: OrderedClaritin 10 mg oral tablet 1 tablet = 10 mg, By Mouth, Daily, # 30 tablet, 0 Refills, Maintenance, Tablet Start Date: 10/02/13 Status: OrderedColace Capsule 100 mg, 1, capsule, By Mouth, 2 times a day, Refills 0, Maintenance, 12/11/20 9:49:00 EDT, Partial fill upon patient request if the prescription is for a schedule II opioid drug. Start Date: 12/11/20 Status: OrderedCompression Stockings See Instructions, # 2 each, Maintenance, surgical, knee length 20-30 mm Hg Dx: right leg swelling, 05/17/20 13:49:00 EDT, Supply Start Date: 05/17/20 Status: Orderedferrous sulfate 325 mg oral tablet 1 tablet = 325 mg, By Mouth, 3 times a day, 0 Refills, Maintenance Start Date: 10/02/13 Status: OrderedLisinopril = 5 mg, By Mouth, Daily, 0 Refills, Maintenance, 12/10/20 7:40:00 EDT, Partial fill upon patient request if the prescription is for a schedule II opioid drug. Start Date: 12/10/20 Status: OrderedLymphedema Therapy Lymphedema Therapy, See Instructions, # 1 each, Refills 0, Tot. Refills 0, Maintenance, Please evaluate and treat for Lymphedema Bilateral DX: Lymphedema, 05/25/20 14:51:00 EDT, Compound Start Date: 05/25/20 Status: OrderedMiraLax Powder 1 pack/packet = 17 Gm, By Mouth, Daily, PRN Constipation, 0 Refills, Maintenance, 12/11/20 9:49:00 EDT, Powder, Partial fill upon patient request if the prescription is for a schedule II opioid drug. Start Date: 12/11/20 Status: OrderedPriLOSEC OTC 20 mg oral delayed release tablet 1 tablet = 20 mg, By Mouth, Daily, 0 Refills, Maintenance Start Date: 10/02/13 Status: Orderedsenna 187 mg oral tablet 1 tablet = 8.6 mg, By Mouth, Daily at bedtime, PRN as needed for constipation, 0 Refills, Maintenance, 12/11/20 9:49:00 EDT, Tablet, Partial fill upon patient request if the prescription is for a schedule II opioid drug. Start Date: 12/11/20 Status: Ordered Problem List Condition Effective Dates Status Health Status Informant Anemia(Confirmed) Active Asthma(Confirmed) Active Chronic kidney disease stage Active 3(Confirmed) Depression(Confirmed) Active Hypertension(Confirmed) Active Hypertension(Confirmed) Active Cervical cancer(Confirmed)1 Active Neurogenic Bladder Nos(Confirmed) Active Breast pain(Confirmed) Active 1status post hysterectomy 1995 Social History Social History Type Response Smoking Status Never smoker entered on: 11/25/14 Sex
--- OUTSIDE RECORDS SUMMARY | 2022-10-11 11:15 | XMS_ITS | Continuity of Care Document ---
:1960 Author Organization [facility] Address [address] [place] [address]- Care Team Providers Name Role Phone Rolf Zhang MD Primary Care Physician Encounter [facility] [place] Date(s): 10/29/19 - 10/29/[address] [address]- [facility] Discharge Disposition: A-D/C Walkout Attending Physician: Not on Staff, Attending MD [...] Refills, Maintenance, Tablet Start Date: 10/02/13 Status: Orderedferrous sulfate 325 mg oral tablet [...] Most recent to oldest [Reference Range]: 1 2 Oxygen Saturation [94-100 %] 100 % 100 % (10/29/19 10:47 AM) (10/29/19 10:38 AM) Pulse Rate [55-90 bpm] 74 bpm 93 bpm (10/29/19 10:47 AM) *H* (10/29/19 10:38 AM) Blood Pressure [90-138/55-84 mm Hg] 159/89 mm Hg *H* (10/29/19 10:47 AM) Respiratory Rate [16-30 br/min] 18 br/min (10/29/19 10:47 AM) Temperature [96.8-100.4 DegF] 98.2 DegF (10/29/19 10:47 AM) Mode of Delivery (Oxygen) Room air Room air (10/29/19 10:47 AM) (10/29/19 10:38 AM) Blood pressure sites Arm, left (10/29/19 10:47 AM) Temperature Route Oral (10/29/19 10:47 AM) Social History Social History Type Response Smoking Status Never smoker entered on: 11/25/14 Sex
--- OUTSIDE RECORDS SUMMARY | 2022-10-11 11:15 | XMS_ITS | Continuity of Care Document ---
:1960 Author Organization [facility] Address [address] [place] [address]- Care Team Providers Name Role Phone Rolf Zhang MD Primary Care Physician Encounter [facility] [place] Date(s): 08/31/20 - 10/02/[address] [address] Attending Physician: Baldo Bettencourt MD Admitting Physician: Baldo Bettencourt MD Referring Physician: Baldo Bettencourt MD Allergies, Adverse Reactions, Alerts Substance Reaction [...] 0 Refills, Maintenance Start Date: 10/02/13 Status: OrderedLymphedema Therapy Lymphedema Therapy, See Instructions, # 1 each, Refills 0, Tot. Refills 0, Maintenance, Please evaluate and treat for Lymphedema Bilateral DX: Lymphedema, 05/25/20 14:51:00 EDT, Compound Start Date: 05/25/20 Status: Orderedmetoprolol 25 mg oral tablet, extended [...]
--- OUTSIDE RECORDS SUMMARY | 2022-10-11 11:15 | XMS_ITS | Continuity of Care Document ---
:1960 Author Organization [facility] Address [address] [place] [address]- Care Team Providers Name Role Phone Rolf Zhang MD Primary Care Physician [place] [facility] [place] 08/[place]/20 - 10/03/[address] [address] Attending Physician: Baldo Bettencourt MD Admitting [...]
--- OUTSIDE RECORDS SUMMARY | 2022-10-11 11:15 | XMS_ITS | Continuity of Care Document ---
:1960 Author Organization [facility] Address [address] [place] [address]- Care Team Providers Name Role Phone Rolf Zhang MD Primary Care Physician [id number] Date(s[facility] 09/06/21 - 10/06/21 [facility] [address] [place] [address]- Allergies, Adverse Reactions, Alerts Substance Reaction Severity [...] 13:49:00 EDT, Supply Start Date: 05/17/20 Status: OrderedLisinopril = 5 mg, By Mouth, [...] 14:51:00 EDT, Compound Start Date: 05/25/20 Status: OrderedPriLOSEC OTC 20 mg oral delayed release tablet 1 tablet = 20 mg, By Mouth, Daily, 0 Refills, Maintenance Start Date: 10/02/13 Status: Ordered Problem List Condition Effective Dates Status Health Status Informant Anemia(Confirmed) Active Asthma(Confirmed) Active Pain of back and right lower Active extremity(Confirmed) Back pain with right-sided Active radiculopathy(Confirmed) Chronic kidney disease stage Active 3(Confirmed) Depression(Confirmed) Active Hypertension(Confirmed) Active Hypertension(Confirmed) Active Cervical cancer(Confirmed)1 Active Neurogenic Bladder Nos(Confirmed) Active Obese class I(Confirmed) Active Breast pain(Confirmed) Active 1status post hysterectomy 1995 Social History Social History Type Response Smoking Status Never smoker entered on: 11/25/14 Sex
--- OUTSIDE RECORDS SUMMARY | 2022-10-11 11:15 | XMS_ITS | Continuity of Care Document ---
:1960 Author Organization [facility] Address [address] [place] [address]- Care Team Providers Name Role Phone Rolf Zhang MD Primary Care Physician [place] [facility] [place]20 [place] 10/06/20 [facility] [address] [address] Attending Physician: Laura Forman MD Referring Physician: Baldo Bettencourt MD Allergies, [...]
--- OUTSIDE RECORDS SUMMARY | 2022-10-11 11:15 | XMS_ITS | Continuity of Care Document ---
:1960 Author Organization [facility] Address [address] [place] [address]- Care Team Providers Name Role Phone Rolf Zhang MD Primary Care Physician [place] [facility] [place] 09/06/19 - 09/06/[address] [address]- [facility] Discharge Disposition: A-D/C Home Attending Physician: Savanna Mcrae MD Admitting Physician: Savanna Mcrae MD Referring Physician: Not on Staff, Referring [...] Refills, Maintenance, Tablet Start Date: 10/02/13 Status: OrderedpredniSONE 20 mg oral tablet 2 tablet = 40 mg, By Mouth, Daily, for 5 days, # 10 tablet, 0 Refills, Acute 09/10/19 16:31:00 EST, 09/05/19 16:31:00 EST, Tablet, [facility]/pharmacy #[id number], 163, cm, 09/05/19 11:33:00 EST, Height Start Date: 09/05/19 Stop Date: 09/10/19 Status: OrderedPriLOSEC OTC 20 mg oral delayed [...] 1995 Vital Signs Most recent to oldest 1 2 3 [Reference Range]: Oxygen Saturation [94-100 %] 100 % 100 % 100 % (09/06/19 9:22 PM) (09/06/19 7:16 PM) (09/06/19 5:26 PM) Pulse Rate [55-90 bpm] 64 bpm 60 bpm 80 bpm (09/06/19 9:22 PM) (09/06/19 7:16 PM) (09/06/19 5:26 PM) Blood Pressure [90-138/55-84 131/87 mm Hg 131/80 mm Hg 130 /70 mm Hg mm Hg] (09/06/19 9:22 PM) (09/06/19 7:16 PM) (09/06/19 5:26 PM) Respiratory Rate [16-30 20 br/min 18 br/min 16 br/mi n br/min] (09/06/19 9:22 PM) (09/06/19 7:16 PM) (09/06/19 5:26 PM) Temperature [96.8-100.4 98.0 DegF DegF] (09/06/19 2:29 PM) Mode of Delivery (Oxygen) Room air Room air Room a ir (09/06/19 9:22 PM) (09/06/19 7:16 PM) (09/06/19 5:26 PM) Blood pressure sites Arm, right Arm, right Arm, right (09/06/19 9:22 PM) (09/06/19 7:16 PM) (09/06/19 5:26 PM) Temperature Route Oral (09/06/19 2:29 PM) Social History Social History Type Response Smoking Status Never smoker entered on: 11/25/14 Sex
--- OUTSIDE RECORDS SUMMARY | 2022-10-11 11:15 | XMS_ITS | Continuity of Care Document ---
:1960 Author Organization [facility] Address [address] [place] [address]- Care Team Providers Name Role Phone Rolf Zhang MD Primary Care Physician En[place] [facility] [place] Date(s): 11/04/20 - 12/05/[address] [address] Attending Physician: Baldo Bettencourt MD Admitting [...]
--- OUTSIDE RECORDS SUMMARY | 2022-10-11 11:15 | XMS_ITS | Continuity of Care Document ---
:1960 Author Organization [facility] Address [address] [place] [address]- Care Team Providers Name Role Phone Rolf Zhang MD Primary Care Physician Encounter [facility] [place] Date(s): 09/03/20 - 10/03/[address] [address] Attending Physician: Admtr, Miguelito Admitting Physician: Admtr, Ar8 Referring Physician: Admtr, Ar8 Allergies, Adverse Reactions, Alerts Substance Reaction Severity [...]
--- OUTSIDE RECORDS SUMMARY | 2022-10-11 11:15 | XMS_ITS | Continuity of Care Document ---
:1960 Author Organization [facility] Address [address] [place] [address]- Care Team Providers Name Role Phone Rolf Zhang MD Primary Care Physician En[facility] [place] Date(s): 05/17/20 - 06/16/20 [facility] [address] [place] [address]- [facility] Attending Physician: Miguelito Stanley Admitting Physician: AdmtrMiguelito Referring Physician: Admtr, Ar8 Allergies, Adverse Reactions, [...]
--- OUTSIDE RECORDS SUMMARY | 2022-10-11 11:15 | XMS_ITS | Continuity of Care Document ---
:1960 Author Organization [facility] Address [address] [place] [address]- Care Team Providers Name Role Phone Rolf Zhang MD Primary Care Physician [place] [facility] [place]20 - 10/06/[address] [address] Attending Physician: Baldo Bettencourt MD Admitting Physician: [...]
--- OUTSIDE RECORDS SUMMARY | 2022-10-11 11:15 | XMS_ITS | Continuity of Care Document ---
:1960 Author Organization [facility] Address [address] [place] [address]- Care Team Providers Name Role Phone Rolf Zhang MD Primary [id number] 09/05/21 - 12/15/21 [facility] [address] [place] [address]- Attending Physician: Avani Hernandez MD Admitting Physician: Avani Hernandez MD Allergies, Adverse Reactions, Alerts Substance Reaction [...]
--- OUTSIDE RECORDS SUMMARY | 2022-10-11 11:15 | XMS_ITS | Continuity of Care Document ---
:1960 Author Organization [facility] Address [address] [place] [address]- Care Team Providers Name Role Phone Rolf Zhang MD Primary Care Physician [place] [facility] [place] Date(s): 12/10/20 - 12/11/[address] [address] Discharge Disposition: A-Transfer VNA/Home Health Attending Physician: Baldo Bettencourt MD Admitting Physician: [...] II opioid drug. Start Date: 12/11/20 Status: OrderedAcetaminophen Tablet 650 mg, Tablet, By Mouth, 12/11/20 9:00:00 EDT Start Date: 12/11/20 Stop Date: 12/11/20 Status: CompletedAdvair 250 mcg-50 mcg Inhaler 1 puff, Inhalation, [...] II opioid drug. Start Date: 12/11/20 Status: OrderedoxyCODONE 5 mg oral tablet 10 mg, Tablet, By Mouth, Every 4 hours, PRN for Pain , Severe, Routine, 12/11/20 7:08:00 EDT Start Date: 12/11/20 Stop Date: 12/11/20 Status: DiscontinuedoxyCODONE 5 mg oral tablet See Instructions, PRN, Take 1-2 tablet By Mouth Every 4 hours as needed for pain, # 84 tablet, Refills 0, Tot. Refills 0, Acute 12/18/20 9:48:00 EDT, Pain , Moderate, 12/11/20 9:47:00 EDT, InstructionsReplace Required Details, Route to Pharmacy Elect... Start Date: 12/11/20 Stop Date: 12/18/20 Status: OrderedPriLOSEC OTC 20 mg oral delayed [...] II opioid drug. Start Date: 12/11/20 Status: OrderedToradol Inj 15 mg, Injection, IV Push Slowly, Once, Routine, 12/11/20 8:00:00 EDT, Stop date 12/11/20 8:00:00 EDT Start Date: 12/11/20 Stop Date: 12/11/20 Status: Completed Problem List Condition Effective Dates Status Health Status Informant Anemia(Confirmed) Active Asthma(Confirmed) Active Chronic kidney disease stage Active 3(Confirmed) Depression(Confirmed) Active Hypertension(Confirmed) Active Hypertension(Confirmed) Active Cervical cancer(Confirmed)1 Active Neurogenic Bladder Nos(Confirmed) Active Breast pain(Confirmed) Active 1status post hysterectomy 1995 Results Radiology Reports Exam Date Time Procedure Performing Provider Status 12/10/20 10:21 PM Knee 1 or 2 Views Right Vandana Campbell; Auth (Verified) Notes:(Knee 1 or 2 Views Right) Reason For Exam: PostopRESULT: Knee 1 or 2 Views Right Knee 1 or 2 Views Right1 view INDICATION/CLINICAL QUESTION: Reason: Postop; Clinical Question(s): Other:; Implant Position; Special Instructions: Do today at 2200, No flexed knee in the lateral position. Keep leg straight; 2 Views COMPARISON: None. FINDINGS: Total knee arthroplasty with intact hardware and normal alignment. No fracture. IMPRESSION: No apparent complication. WSN: [id number] Ordering Physician: Arcadio Cannon Dictated By: Robb Blair MD Dictated Date/Time: 12/10/20 10:27 p Reviewed By: Robb Blair MD Signed By: Robb Blair MD Signed Date/Time: 12/10/20 10:27 pm Transcribed By: WILTON Transcribed Date/Time: 12/10/20 10:27 pm Vital Signs Most recent to oldest 1 2 3 4 [Reference Range]: Height 162 cm 162 cm 162 cm (12/11/20 6:35 AM) (12/10/20 5:00 PM) (12/10/20 10:21 AM) Weight 81.2 kg 81.2 kg (12/10/20 10:21 AM) (12/10/20 7:19 AM) Oxygen Saturation 97 % 99 % 100 % [94-100 %] (12/11/20 6:35 AM) (12/11/20 3:00 AM) (12/10/20 11:00 PM) Pulse Rate [55-90 bpm] 63 bpm 81 bpm 78 bpm (12/11/20 6:35 AM) (12/11/20 3:00 AM) (12/10/20 11:00 PM) Body Mass Index 30.94 30.94 [18.5-24.99] *>HHI* *>HHI* (12/10/20 10:21 AM) (12/10/20 7:19 AM) Blood Pressure 116/54 mm Hg 123/74 mm Hg 121/84 mm Hg [90-138/55-84 mm Hg] (12/11/20 6:35 AM) (12/11/20 3:00 AM) (12/10/20 1 1:00 PM) Respiratory Rate [16-30 18 br/min 18 br/min 18 br/min 18 b r/min br/min] (12/11/20 12:15 PM) (12/11/20 8:23 AM) (12/11/20 8:23 AM) (12/11/20 8:23 AM) Temperature [96.8-100.4 98.0 DegF 98.0 DegF 98.1 DegF DegF] (12/11/20 6:35 AM) (12/11/20 3:00 AM) (12/10/20 11:00 PM) Mode of Delivery Room air Room air Room air (Oxygen) (12/11/20 6:35 AM) (12/11/20 3:00 AM) (12/10/20 11:00 PM) Blood pressure sites Arm, right Arm, left Arm, right (12/11/20 3:00 AM) (12/10/20 11:00 PM) (12/10/20 1:30 PM) Temperature Route Oral Oral Oral (12/11/20 6:35 AM) (12/11/20 3:00 AM) (12/10/20 11:00 PM) Dry Weight 81.2 kg (12/10/20 7:19 AM) Social History Social History Type Response Smoking Status Never smoker entered on: 11/25/14 Sex
--- OUTSIDE RECORDS SUMMARY | 2022-10-11 11:15 | XMS_ITS | Continuity of Care Document ---
:1960 Author Organization [facility] Address [address] [place] [address]- Care Team Providers Name Role Phone Rolf Zhang MD Primary Care Physician Encounter [place] Date(s): 08/17/20 - 10/16/[address] [address] Attending Physician: Baldo Bettencourt MD Referring Physician: Baldo [...]
--- OUTSIDE RECORDS SUMMARY | 2022-10-11 11:16 | XMS_ITS | Continuity of Care Document ---
:1960 Author Organization [facility] Address [address] [place] [address]- Care Team Providers Name Role Phone Rolf Zhang MD Primary Care Physician Encounter [facility] [place] Date(s): 08/20/20 - 09/29/[address] [address] Attending Physician: Baldo Bettencourt MD Admitting [...]
--- OUTSIDE RECORDS SUMMARY | 2022-10-11 11:16 | XMS_ITS | Continuity of Care Document ---
:1960 Author Organization [facility] Address [address] [place] [address]- Care Team Providers Name Role Phone Rolf Zhang MD Primary Care Physician En[facility] [place] Date(s): 11/19/20 - 12/19/[address] [address] Attending Physician: Miguelito Stanley Admitting Physician: Admtr, Miguelito Referring Physician: Admtr, Ar8 Allergies, Adverse Reactions, [...]
--- OUTSIDE RECORDS SUMMARY | 2022-10-11 11:16 | XMS_ITS | Continuity of Care Document ---
:1960 Author Organization [facility] Address [address] [place] [address]- Care Team Providers Name Role Phone Rolf Zhang MD [id number] - 07/06/[facility] [address] [place] [address]- Attending Physician: Khanh Crawley MD Admitting Physician: Khanh Crawley MD Referring Physician: Rolf Zhang MD Allergies, [...]
--- OUTSIDE RECORDS SUMMARY | 2022-10-11 11:16 | XMS_ITS | Continuity of Care Document ---
:1960 Author Organization [facility] Address [address] [place] [address]- Care Team Providers Name Role Phone Rolf Zhang MD Primary Care Physician En[place] [facility] [place] Date(s): 11/13/20 - 12/19/[address] [address] Attending Physician: Baldo Bettencourt MD Admitting Physician: [...]
--- OUTSIDE RECORDS SUMMARY | 2022-10-11 11:16 | XMS_ITS | Continuity of Care Document ---
:1960 Author Organization [facility] Address [address] [place] [address]- Care Team Providers Name Role Phone Rolf Zhang MD Primary Care Phys[id number] Date[facility]s): 06/06/21 - 07/06/21 [facility] [address] [place] [address]- Attending Physician: Miguelito Stanley Admitting Physician: Miguelito Stanley Referring Physician: Miguelito Stanley Allergies, Adverse Reactions, Alerts Substance Reaction Severity [...]
--- OUTSIDE RECORDS SUMMARY | 2022-10-11 11:16 | XMS_ITS | Continuity of Care Document ---
:1960 Author Organization [facility] Address [address] [place] [address]- Care Team Providers Name Role Phone Rolf Zhang MD Primary Care Physician [place] [facility] [place] Date(s): 10/26/20 - 12/05/[address] [address] Attending Physician: Baldo Bettencourt MD [...]
--- OUTSIDE RECORDS SUMMARY | 2022-10-11 11:16 | XMS_ITS | Continuity of Care Document ---
:1960 Author Organization [facility] Address [address] [place] [address]- Care Team Providers Name Role Phone Rolf Zhang MD Primary Care Physician [place] [facility] [place] 09[place]05/19 - 09/05/[address] [address] [facility] Encounter Diagnosis Migraine (Final) - 09/05/19 Discharge Disposition: A-D/C Home Attending Physician: Leena Newman MD Admitting Physician: Leena Newman MD Referring Physician: Not on Staff, Referring [...] 09/10/19 16:31:00 EST, 09/05/19 16:31:00 EST, Tablet, [facility]/pharmacy #[id number], 163, cm, 09/05/19 11:33:00 EST, Height [...] Exam Date Time Procedure Performing Provider Status 09/05/19 2:58 PM Hand Min 3 Views Right Yohan Sanen; Auth (Verified) Notes:(Hand Min 3 Views Right) Reason For Exam: ErythemaRESULT: Hand Min 3 Views Right Hand Min 3 Views Right, 3 views Refer to EMR; Reason: Erythema; Clinical Question(s): Arthritis; Hx of Present Illness: migraine headache x 3 weeks - has vision issues sometimes - light bothers eyes - +nausea no vomiting -- pt also reports 3 days of bilateral hand swelling with greater swelling to right hand; Other Objective Findings: +swelling noted to bilateral hands - +bilateral radial pulses noted - pt otherwise well appearing COMPARISON: None. FINDINGS: No fractures or bone lesions. Mild DIP cartilage thinning but without spurring or sclerosis. Normal mineralization. No erosion. No arthritic changes. Slight soft tissue fullness at the dorsum of the hand. Mild soft tissue swelling in the proximal second through fourth digits. No soft tissue gas or foreign matter. IMPRESSION: No acute bony or articular findings. Mild soft tissue swelling. WSN: [id number] Dictated By: Yuriy Garvin MD Dictated Date/Time: 09/05/19 3:04 pm Reviewed By: Yuriy Garvin MD Signed By: Yuriy Garvin MD Signed Date/Time: 09/05/19 3:04 pm Transcribed By: WILTON Transcribed Date/Time: 09/05/19 3:00 pm Vital Signs Most recent to oldest 1 2 3 [Reference Range]: Height 163 cm 163 cm (09/05/19 11:33 AM) (09/05/19 11:02 AM) Oxygen Saturation [94-100 100 % 100 % 100 % %] (09/05/19 5:04 PM) (09/05/19 2:24 PM) (09/05/19 11:33 AM) Pulse Rate [55-90 bpm] 63 bpm 80 bpm 77 bpm (09/05/19 5:04 PM) (09/05/19 2:24 PM) (09/05/19 11:33 AM) Blood Pressure 128/79 mm Hg 122/80 mm Hg 144/108 mm Hg [90-138/55-84 mm Hg] (09/05/19 5:04 PM) (09/05/19 2:24 PM) *H* (09/05/19 11:33 AM) Respiratory Rate [16-30 18 br/min 15 br/min 16 br/mi n br/min] (09/05/19 5:04 PM) *L* (09/05/19 11: 33 AM) (09/05/19 2:24 PM) Temperature [96.8-100.4 98.3 DegF 98.3 DegF 98.3 Deg F DegF] (09/05/19 5:04 PM) (09/05/19 2:24 PM) (09/05/19 11:33 AM) Mode of Delivery (Oxygen) Room air Room air Room a ir (09/05/19 5:04 PM) (09/05/19 2:24 PM) (09/05/19 11:33 AM) Blood pressure sites Arm, right Arm, left Arm, right (09/05/19 5:04 PM) (09/05/19 2:24 PM) (09/05/19 11:33 AM) Temperature Route Oral Oral (09/05/19 5:04 PM) (09/05/19 2:24 PM) Social History Social History Type Response Smoking Status Never smoker entered on: 11/25/14 Sex
--- OUTSIDE RECORDS SUMMARY | 2022-10-11 11:16 | XMS_ITS | Continuity of Care Document ---
:1960 Author Organization [facility] Address [address] [place] [address]- Care Team Providers Name Role Phone Rolf Zhang MD Primary Care Physician [place] [facility] [place]s): 09/06/20 - 10/06/20 [facility] [address] [address] Attending Physician: Miguelito Stanley Admitting Physician: AdmMiguelito fisher Referring Physician: Admtr ArCorina Allergies, Adverse Reactions, Alerts Substance Reaction Severity [...]
--- OUTSIDE RECORDS SUMMARY | 2022-10-11 11:16 | XMS_ITS | Continuity of Care Document ---
:1960 Author Organization [facility] Address [address] [place] [address]- Care Team Providers Name Role Phone Rolf Zhang MD Primary Care Phys[id number] 11/15/21 - 12/15/21 [facility] [address] [place] [address]- Attending Physician: Miguelito Stanley Admitting Physician: Miguelito [...]
[2022-10-11 11:46] LABS: MANUAL DIFF FLAG NO
[2022-10-11 11:47] LABS: Basophils Percent Auto 0.3 % (0-2); Eosinophils Absolute Auto 0.2 X10*3/uL (0.0-0.4); Imm Gran Abs Auto 0.04 X10*3/uL (0.00-0.03); Imm Gran Pct Auto 0.3 % (0.0-0.4); Lymphocytes Absolute Auto 2.6 X10*3/uL (1.2-4.9); Lymphocytes Percent Auto 21.8 % (20-40); Mean Corpuscular HGB Conc 30.6 g/dl (31.0-35.0); Mean Corpuscular Hemoglobin 23.9 pg (27.0-33.0); Mean Corpuscular Volume 78.3 fL (80.0-98.0); Mean Platelet Volume 10.3 fL (9.4-12.3); Monocytes Absolute Auto 0.7 X10*3/uL (0.1-1.2); Monocytes Percent Auto 5.8 % (2-11); Neutrophils Absolute Auto 8.4 x10*3/uL (2.0-8.3); Neutrophils Percent Auto 69.8 % (45-73); Platelet Count 246 X10*3/uL (160-400); Red Cell Distribution Width 16.9 % (11.0-16.0)
[2022-10-11 11:52] LABS: Prothrombin Time 11.5 SEC (10.0-13.1)
[2022-10-11 12:02] LABS: Alanine Aminotransferase 19 U/L (0-31); Albumin Level 4.1 g/dL (3.5-5.0); Alkaline Phosphatase 114 U/L (39-117); Anion Gap 14 (12-20); Aspartate Amino Transferase 20 U/L (5-31); Bilirubin Total 0.3 mg/dL (0.0-1.0); Blood Urea Nitrogen 16 mg/dL (9-16); Calcium 9.5 mg/dL (8.4-10.2); Carbon Dioxide 22 mmol/L (22-29); Chloride 108 mmol/L (96-108); Creatinine Clr Calc Pharmacy 83.4; Estimated Glomerular Filt Rate > 60; Glucose Random 86 mg/dL (60-115); Magnesium 1.8 mg/dL (1.6-2.6); Potassium 3.9 mmol/L (3.3-5.1); Sodium 140 mmol/L (135-145); Total Protein 7.3 g/dL (6.5-8.0)
[2022-10-11 12:23] LABS: Influenza A PCR NEGATIVE (Negative); Influenza B PCR NEGATIVE (Negative); Resp Syncy Virus RNA Qual PCR NEGATIVE (Negative); SARS COV2 PCR INHOUSE NEGATIVE (Negative)
[2022-10-11] MEDS: Piperacillin Sodium/Tazobactam 3.375 GM in 0.9 % Sodium Chloride 50 ML IV (12:27)
[2022-10-11] MEDS: 0.9 % Sodium Chloride 1,000 ML 999 ML IVCONT (12:27)
[2022-10-11 13:07] VITALS: BP 176/81; PULSE 79; RESP 18; TEMP 37.1; O2SAT 100
--- NOTE | 2022-10-11 14:10 | PM.IMHP ---
History of Present Illness Date of Service: 10/11/22 Chief Complaint: right lower extremity cellulitis 62-year-old female recently admitted to [facility] 08/25/2022 for right leg cellulitis. She states she was treated with Kefzol for a total of 5 days. She was discharged on oral Keflex and was good until approximately 1 week ago where she developed again redness from her foot to her groin fold. She states her leg is painful tight and warm to touch. In the emergency room venous duplex was negative for DVT. Was given a dose of Zosyn and blood cultures obtained Review of Systems Review of Systems: Denies chest pain Denies shortness of breath Denies nausea vomiting diarrhea Denies fever chills PMFSH Medical History Anemia Arthritis Dyspnea on exertion Fibromyalgia, primary History of cervical cancer HTN (hypertension) Migraines Surgical History H/O: hysterectomy Social History Alcohol intake: never Advance Directives: No Advance Directives Date on File: 12/05/16 Meds Allergies Allergy/AdvReac Type Severity Reaction Status Date / Time buspirone [From BuSpar] Allergy Mild TONGUE Verified 05/02/22 16:13 [place], dizziness Motrin Allergy Unknown rash Verified 05/02/22 16:13 ibuprofen [From Motrin] AdvReac Mild HTN Verified 05/02/22 16:13 Active Medications: Current Medications Acetaminophen (Acetaminophen 325 Mg Tablet) 650 mg PO Q6H PRN PRN Reason: Pain, Mild (Pain Scale 1-3) Enoxaparin Sodium (Enoxaparin Sodium 40 Mg/0.4 Ml Syringe) 40 mg SUBCUT Q24H HAILEY Vancomycin HCl 1,000 mg/Vancomycin HCl 750 mg/ Sodium Chloride 535 mls @ 267.5 mls/hr IV ONCE ONE Stop: 10/11/22 15:44 Piperacillin Sod/Tazobactam (Sod 4.5 gm/ Sodium Chloride) 100 mls @ 200 mls/hr IV Q6H HAILEY Ondansetron HCl (Ondansetron Hcl 4 Mg/2 Ml Vial) 4 mg IVPUSH Q8H PRN PRN Reason: Nausea and Vomiting Oxycodone HCl (Oxycodone Hcl Immed Release 5 Mg Tablet) 5 mg PO Q6H PRN PRN Reason: Pain, Severe (Pain Scale 7-10) Pharmacy Consult (Consult Rx Perform Med Rec) 1 each MISCELLANE ONCE PRN PRN Reason: Consult order Pharmacy Consult (Consult Rx Vancomycin Dosing) 1 each MISCELLANE DAILY PRN PRN Reason: Consult order Pharmacy Consult (Consult Rx Perform Med Rec) 1 each MISCELLANE ONCE PRN PRN Reason: Consult order Sodium Chloride (0.9 % Sodium Chloride Flush 3 Ml Syringe) 3 ml IVFLUSH [facility] Home Medications Medication Instructions Recorded Confirmed Last Taken Type naproxen 500 mg tablet (Naprosyn) 500 mg PO BID 08/03/20 Unknown History docusate sodium 100 mg capsule 1 cap PO DAILY constipation 10/11/22 Unknown History duloxetine 20 mg capsule,delayed 2 cap PO QAM 10/11/22 Unknown History release lisinopril 40 mg tablet 1 tab PO DAILY 10/11/22 Unknown History meloxicam 7.5 mg tablet 1 tab PO QAM 10/11/22 Unknown History metoprolol succinate 25 mg 1 tab PO DAILY 10/11/22 Unknown History tablet,extended release 24 hr mineral oil-hydrophil petrolat topical NEEDED 10/11/22 Unknown History topical ointment (petrolatum topical ointment) multivitamin-ferrous 1 tab PO DAILY 10/11/22 Unknown History fumarate-folic acid 18 mg-400 mcg tablet (Spectravite Adult) polyethylene glycol 3350 17 17 g PO DAILY 10/11/22 Unknown History gram/dose oral powder sumatriptan succinate 25 mg tablet 25 mg PO DAILY PRN Migraine 10/11/22 Unknown History Headache tizanidine 2 mg tablet 1 tab PO Q8H PRN Muscle Spasm 10/11/22 Unknown History Physical Exam Vital Signs and Narrative: Vital Signs: Last Vital Signs Temp 98.7 F 10/11/22 13:07 Pulse 79 10/11/22 13:07 Resp 18 10/11/22 13:07 BP 176/81 H 10/11/22 13:07 Pulse Ox 100 10/11/22 13:07 O2 Del Method 10/11/22 13:07 BMI result Body Mass Index 27.4 Const: Other: Awake alert oriented x3 no acute distress Resp: Other: Clear to auscultation bilaterally no rales rhonchi or wheezes Cardio: Other: No S4; positive S1-S2; no S3 murmurs rubs or gallops GI: Other: Soft nontender nondistended with normoactive bowel sounds Skin: Other: Right lower extremity erythematous from groin fold to foot. Some edema noted; warm to touch Neuro: Other: Cranial nerves 2-12 grossly intact as tested. Motor is 5/5 all extremities. Sensation intact Extrem: Other: As above Results Labs 10/11/22 11:38 10/11/22 11:38 Labs: Laboratory Results - last 24 hr 10/11/22 10/11/22 10/11/22 11:38 11:38 11:38 MCV 78.3 L MCH 23.9 L MCHC 30.6 L RDW 16.9 H Plt Count 246 MPV 10.3 Immature Gran % (Auto) 0.3 Neut % (Auto) 69.8 Lymph % (Auto) 21.8 [place] % (Auto) 5.8 Eos % (Auto) 2.0 Baso % (Auto) 0.3 Lymph # (Auto) 2.6 [place] # (Auto) 0.7 Eos # (Auto) 0.2 Baso # (Auto) 0.0 Abs Immat Gran (auto) 0.04 H Absolute Neuts (auto) 8.4 H Absolute Nucleated RBC 0.000 Nucleated RBC % (auto) 0.0 PT 11.5 INR 1.0 Anion Gap 14 Estim Creat Clear Calc 83.4 Estimated GFR > 60 Random Glucose 86 Lactic Acid Calcium 9.5 Magnesium 1.8 Total Bilirubin 0.3 AST 20 ALT 19 Alkaline Phosphatase 114 Total Protein 7.3 Albumin 4.1 Influenza Type A (PCR) Influenza Type B (PCR) RSV RNA Qual (PCR) SARS-CoV-2 RNA (RT-PCR) 10/11/22 10/11/22 11:39 11:39 MCV MCH MCHC RDW Plt Count MPV Immature Gran % (Auto) Neut % (Auto) Lymph % (Auto) [place] % (Auto) Eos % (Auto) Baso % (Auto) Lymph # (Auto) [place] # (Auto) Eos # (Auto) Baso # (Auto) Abs Immat Gran (auto) Absolute Neuts (auto) Absolute Nucleated RBC Nucleated RBC % (auto) PT INR Anion Gap Estim Creat Clear Calc Estimated GFR Random Glucose Lactic Acid 1.0 Calcium Magnesium Total Bilirubin AST ALT Alkaline Phosphatase Total Protein Albumin Influenza Type A (PCR) NEGATIVE Influenza Type B (PCR) NEGATIVE RSV RNA Qual (PCR) NEGATIVE SARS-CoV-2 RNA (RT-PCR) NEGATIVE Imaging Radiologist's Impressions: Impressions Venous Duplex 10/11/22 11:49 IMPRESSION: No DVT demonstrated in the right lower extremity. Assessment and Plan (1) Cellulitis: Status: Acute (2) HTN (hypertension): Status: Acute (3) Anemia: Status: Acute Plan 62-year-old female presents with recurrent cellulitis that has failed oral therapies. Recent hospitalization at [facility] early August on IV Kefzol and discharged on Keflex. Brief. Resolution however over the last week symptoms have returned. Subjective fever and chills 1. Right lower extremity cellulitis -vancomycin/Zosyn(1) -oxycodone for pain -venous duplex negative for DVT -blood cultures x2 pending 2. Hypertension -will continue lisinopril and metoprolol at outpatient dosing -adjust as indicated -follow renals/divalents 3. Anemia -at baseline -follow CBC Lovenox Full Code Patient will require 2 inpatient midnights of hospitalization for IV antibiotics to treat cellulitis that has failed oral therapies. This cannot be achieved a lesser acute setting Time Spent With Patient Time: Total time managing care of this patient today ____ minutes. Quality Stroke Does the patient have a stroke diagnosis?: No VTE Prior VTE?: No VTE Risk Level:: Medical - moderate - high VTE Device Contraindication: Treatment Not Indicated VTE Drug Contraindication: N/A - Med Ordered
[2022-10-11] MEDS: vancomycin HCL 1,000 MG, vancomycin HCL 750 MG in 0.9 % Sodium Chloride 500 ML 267.5 MG IV (14:18)
[2022-10-11] MEDS: Enoxaparin Sodium 40 MG/0.4 ML SYRINGE SUBCUT (14:18)
[2022-10-11 14:31] VITALS: BP 155/80; PULSE 73; RESP 16; TEMP 37.2; O2SAT 100
--- NOTE | 2022-10-11 14:45 | PHA.MEDREC ---
Pharmacy Consult ? Medication Reconciliation Pharmacy has completed the medication reconciliation. Patient was unsure about all her medications. Was able to recognize most of them. [facility] updated list [facility]. Anabell Lorenzana, AllyD
[2022-10-11] MEDS: oxyCODONE HCl Immed Release 5 MG TABLET PO ×2 (14:53→23:19)
--- NOTE | 2022-10-11 15:07 | PHA.PROG ---
Admission Date/Time: October 11, 2022 13:34 Indication: Cellulitis Weight in k.575 kg Adjusted body weight in K.85 kg Dobson body weight in K.7 kg Obesity Dosing Indication % IBW: 132% Serum Creatinine - Last 168 Hours 10/11/22 11:38 Creatinine 0.70 Estimated CrCl and GFR - Last 168 Hours 10/11/22 11:38 Estim Creat Clear Calc 83.4 Estimated GFR > 60 Vancomycin Loading Dose: 1750 mg Current Vancomycin Dosing Regimen: 1000 mg Q12H Date and Time for next Vancomycin Level to be drawn: 10/12 @ 1200 Pharmacist Comments on Vancomycin Plan: Patient is consider obese with BMI% > 130%, therefore careful monitor is required due to large volume of distribtuion Patient received an adequate load vancomycin 1750 mg (24 mg/kg) on 10/11 @ 1418. Maintenance dose vancomycin 1000 mg Q12H is schedule to start 10/02 @ 0200. Expected AUC 521 with a trough of 16.2. Random level scheduled to be drawn prior to 3rd to to access for safety. If level is high after load dose and one maintenance dose, may be required to decrease dose. Pharmacy will monitor renal function daily Anabell Lorenzana PharmD Vancomycin dosing will take advantage of [employer] as a clinical decision support tool that uses Bayesian modeling to calculate individual patient's pharmacokinetic parameters and forecast the patient's drug concentration time course with the target goal AUC 24 range of 400 - 600 mg/L/hr.
[2022-10-11] MEDS: Acetaminophen 325 MG TABLET 650 MG PO ×2 (15:27→21:15)
[2022-10-11] MEDS: DULoxetine HCl 20 MG CAPSULE.DR 40 MG PO (16:45)
[2022-10-11] MEDS: Butalb/Acetamin/Caff 50/325/40 TABLET 1 TAB PO (16:45)
[2022-10-11] MEDS: Nicotine 7 MG PATCH.TD24 TRANSDERMA (17:38)
[2022-10-11] MEDS: 0.9 % Sodium Chloride Flush 3 ML SYRINGE IVFLUSH (19:14)
[2022-10-11] MEDS: Piperacillin Sodium/Tazobactam 4.5 GM in 0.9 % Sodium Chloride 100 ML IV (19:14)
[2022-10-11 19:24] VITALS: BP 143/74; PULSE 86; RESP 18; TEMP 36.4; O2SAT 98
[2022-10-12] MEDS: vancomycin HCL 1,000 MG in 0.9 % Sodium Chloride 250 ML 270 MG IV ×2 (01:27→14:31)
[2022-10-12 03:24] VITALS: BP 162/77; PULSE 88; RESP 16; TEMP 36; O2SAT 95
[2022-10-12] MEDS: Piperacillin Sodium/Tazobactam 4.5 GM in 0.9 % Sodium Chloride 100 ML IV ×3 (03:46→19:10)
[2022-10-12 06:16] LABS: MANUAL DIFF FLAG NO
[2022-10-12 06:23] LABS: Basophils Percent Auto 0.5 % (0-2); Eosinophils Absolute Auto 0.3 X10*3/uL (0.0-0.4); Eosinophils Percent Auto 3.6 % (0-4); Hematocrit 31.1 % (37.0-47.0); Hemoglobin 9.6 g/dl (12.0-16.0); Imm Gran Abs Auto 0.04 X10*3/uL (0.00-0.03); Imm Gran Pct Auto 0.5 % (0.0-0.4); Lymphocytes Absolute Auto 2.5 X10*3/uL (1.2-4.9); Lymphocytes Percent Auto 29.2 % (20-40); Mean Corpuscular HGB Conc 30.9 g/dl (31.0-35.0); Mean Corpuscular Hemoglobin 24.3 pg (27.0-33.0); Mean Corpuscular Volume 78.7 fL (80.0-98.0); Mean Platelet Volume 11.7 fL (9.4-12.3); Monocytes Absolute Auto 0.8 X10*3/uL (0.1-1.2); Monocytes Percent Auto 9.1 % (2-11); Neutrophils Percent Auto 57.1 % (45-73); Platelet Count 226 X10*3/uL (160-400); Red Blood Count 3.95 X10*6/uL (4.20-5.50); Red Cell Distribution Width 16.6 % (11.0-16.0); White Blood Count 8.7 X10*3/uL (4.8-10.8)
[2022-10-12 06:51] LABS: Alanine Aminotransferase 17 U/L (0-31); Albumin Level 3.4 g/dL (3.5-5.0); Alkaline Phosphatase 95 U/L (39-117); Anion Gap 12 (12-20); Aspartate Amino Transferase 18 U/L (5-31); Bilirubin Total 0.4 mg/dL (0.0-1.0); Blood Urea Nitrogen 11 mg/dL (9-16); Calcium 8.8 mg/dL (8.4-10.2); Carbon Dioxide 24 mmol/L (22-29); Chloride 106 mmol/L (96-108); Creatinine Clr Calc Pharmacy 77.9; Estimated Glomerular Filt Rate > 60; Glucose Fasting 92 mg/dL (60-99); Potassium 4.5 mmol/L (3.3-5.1); Sodium 137 mmol/L (135-145); Total Protein 6.1 g/dL (6.5-8.0)
[2022-10-12] MEDS: oxyCODONE HCl Immed Release 5 MG TABLET PO (07:46)
[2022-10-12] MEDS: DULoxetine HCl 20 MG CAPSULE.DR 40 MG PO (07:47)
[2022-10-12] MEDS: Acetaminophen 325 MG TABLET 650 MG PO ×3 (07:47→22:30)
[2022-10-12] MEDS: Docusate Sodium 100 MG CAPSULE PO (07:47)
[2022-10-12] MEDS: Multivitamin TABLET 1 TAB PO (07:47)
[2022-10-12] MEDS: Nicotine 7 MG PATCH.TD24 TRANSDERMA (07:48)
[2022-10-12] MEDS: Metoprolol Succinate ER 25 MG TAB.ER.24H PO (07:48)
[2022-10-12] MEDS: lisinopriL 40 MG TABLET PO (07:48)
[2022-10-12 08:00] VITALS: BP 166/59; PULSE 88; RESP 18; TEMP 36.6; O2SAT 100
--- NOTE | 2022-10-12 08:37 | HO.PM.IMPN ---
Subjective Subjective Date of Service: 10/12/22 Interval History: f/u on right leg cellulitis failed oral therapy interval history: has persitent redness and swelling in the limb but better, pain is better Review of Systems pain, redness in the right leg Physical Exam Vital Signs: Vital Signs: Last Vital Signs Temp 97.8 F 10/12/22 08:00 Pulse 88 10/12/22 08:00 Resp 18 10/12/22 08:00 BP 166/59 H 10/12/22 08:00 Pulse Ox 100 10/12/22 08:00 O2 Del Method 10/12/22 08:00 O2 Flow Rate 1 10/12/22 03:24 BMI result Body Mass Index 27.4 Const: Other: General: AO X 3, no acute distress Resp: CTA bilateral CVS: S1,S2,RRR GI: +BS, NT, no distention Skin: No rash Neuro: motor grossly intact Psych: appropriate affect MSK: right leg looks generally swollen, mild erythema and some tenderness Objective Data Active Medications Acetaminophen (Acetaminophen 325 Mg Tablet) 650 mg PO Q6H PRN PRN Reason: Pain, Mild (Pain Scale 1-3) Last Admin: 10/12/22 07:47 Dose: 650 mg Documented By: LORENA Albuterol Sulfate (Albuterol Sulfate 90 Mcg 8 Gm Inhaler) 2 puff INHALE Q4H PRN PRN Reason: shortness of breath or wheezing Docusate Sodium (Docusate Sodium 100 Mg Capsule) 100 mg PO DAILY PENDING SALE TO [facility] Last Admin: 10/12/22 07:47 Dose: 100 mg Documented By: LORENA Duloxetine HCl (Duloxetine Hcl 20 Mg Capsule.) 40 mg PO DAILY PENDING SALE TO [facility] Last Admin: 10/12/22 07:47 Dose: 40 mg Documented By: LORENA Enoxaparin Sodium (Enoxaparin Sodium 40 Mg/0.4 Ml Syringe) 40 mg SUBCUT Q24H PENDING S[facility] TO [facility] Last Admin: 10/11/22 14:18 Dose: 40 mg Documented By: LENKA Piperacillin Sod/Tazobactam (Sod 4.5 gm/ Sodium Chloride) 100 mls @ 200 mls/hr IV Q8H PENDING SALE TO [facility] Last Infusion: 10/12/22 04:21 Dose: 0 mls/hr Documented By: JIANORALCallie Vancomycin HCl 1,000 mg/ (Sodium Chloride) 270 mls @ 270 mls/hr IV Q12H PENDING SALE TO [facility] Last Infusion: 10/12/22 02:42 Dose: 0 mls/hr Documented By: SHABANA Lisinopril (Lisinopril 40 Mg Tablet) 40 mg PO DAILY PENDING SALE TO [facility]; Protocol Last Admin: 10/12/22 07:48 Dose: 40 mg Documented By: LORENA Metoprolol Succinate (Metoprolol Succinate Er 25 Mg Tab.Er.24h) 25 mg PO DAILY PENDING SALE TO [facility]; Protocol Last Admin: 10/12/22 07:48 Dose: 25 mg Documented By: LORENA Multivitamins/Vitamin C (Multivitamin Tablet) 1 tab PO DAILY PENDING SALE TO [facility] Last Admin: 10/12/22 07:47 Dose: 1 tab Documented By: LORENA Nicotine (Nicotine 7 Mg Patch.Td24) 7 mg TRANSDERMA DAILY PENDING SALE TO [facility] Last Admin: 10/12/22 07:48 Dose: 7 mg Documented By: LORENA Non-Formulary Medication (Meloxicam) 1 tab PO DAILY PENDING SALE TO [facility] Ondansetron HCl (Ondansetron Hcl 4 Mg/2 Ml Vial) 4 mg IVPUSH Q8H PRN PRN Reason: Nausea and Vomiting Oxycodone HCl (Oxycodone Hcl Immed Release 5 Mg Tablet) 5 mg PO Q6H PRN PRN Reason: Pain, Severe (Pain Scale 7-10) Last Admin: 10/12/22 07:46 Dose: 5 mg Documented By: LORENA Pharmacy Consult (Consult Rx Perform Med Rec) 1 each MISCELLANE ONCE PRN PRN Reason: Consult order Pharmacy Consult (Consult Rx Vancomycin Dosing) 1 each MISCELLANE DAILY PRN PRN Reason: Consult order Sodium Chloride (0.9 % Sodium Chloride Flush 3 Ml Syringe) 3 ml IVFLUSH QSHIFT PENDING SALE TO [facility] Last Admin: 10/12/22 07:53 Dose: Not Given Documented By: LORENA Non-Admin Reason: No Access Sumatriptan Succinate (Sumatriptan Succinate 25 Mg Tablet) 25 mg PO DAILY PRN PRN Reason: Migraine Headache Tizanidine HCl (Tizanidine Hcl 4 Mg Tablet) 2 mg PO Q8H PRN PRN Reason: Muscle Spasm Labs 10/12/22 05:26 10/12/22 05:26 Labs: Laboratory Results - last 24 hr 10/11/22 10/11/22 10/11/22 11:38 11:38 11:38 MCV 78.3 L MCH 23.9 L MCHC 30.6 L RDW 16.9 H Plt Count 246 MPV 10.3 Immature Gran % (Auto) 0.3 Neut % (Auto) 69.8 Lymph % (Auto) 21.8 [place] % (Auto) 5.8 Eos % (Auto) 2.0 Baso % (Auto) 0.3 Lymph # (Auto) 2.6 [place] # (Auto) 0.7 Eos # (Auto) 0.2 Baso # (Auto) 0.0 Abs Immat Gran (auto) 0.04 H Absolute Neuts (auto) 8.4 H Absolute Nucleated RBC 0.000 Nucleated RBC % (auto) 0.0 PT 11.5 INR 1.0 Anion Gap 14 Estim Creat Clear Calc 83.4 Estimated GFR > 60 Random Glucose 86 Fasting Glucose Lactic Acid Calcium 9.5 Magnesium 1.8 Total Bilirubin 0.3 AST 20 ALT 19 Alkaline Phosphatase 114 Total Protein 7.3 Albumin 4.1 Influenza Type A (PCR) Influenza Type B (PCR) RSV RNA Qual (PCR) SARS-CoV-2 RNA (RT-PCR) 10/11/22 10/11/22 10/12/22 11:39 11:39 05:26 MCV 78.7 L MCH 24.3 L MCHC 30.9 L RDW 16.6 H Plt Count 226 MPV 11.7 Immature Gran % (Auto) 0.5 H Neut % (Auto) 57.1 Lymph % (Auto) 29.2 [place] % (Auto) 9.1 Eos % (Auto) 3.6 Baso % (Auto) 0.5 Lymph # (Auto) 2.5 [place] # (Auto) 0.8 Eos # (Auto) 0.3 Baso # (Auto) 0.0 Abs Immat Gran (auto) 0.04 H Absolute Neuts (auto) 5.0 Absolute Nucleated RBC 0.000 Nucleated RBC % (auto) 0.0 PT INR Anion Gap Estim Creat Clear Calc Estimated GFR Random Glucose Fasting Glucose Lactic Acid 1.0 Calcium Magnesium Total Bilirubin AST ALT Alkaline Phosphatase Total Protein Albumin Influenza Type A (PCR) NEGATIVE Influenza Type B (PCR) NEGATIVE RSV RNA Qual (PCR) NEGATIVE SARS-CoV-2 RNA (RT-PCR) NEGATIVE 10/12/22 05:26 MCV MCH MCHC RDW Plt Count MPV Immature Gran % (Auto) Neut % (Auto) Lymph % (Auto) [place] % (Auto) Eos % (Auto) Baso % (Auto) Lymph # (Auto) [place] # (Auto) Eos # (Auto) Baso # (Auto) Abs Immat Gran (auto) Absolute Neuts (auto) Absolute Nucleated RBC Nucleated RBC % (auto) PT INR Anion Gap 12 Estim Creat Clear Calc 77.9 Estimated GFR > 60 Random Glucose Fasting Glucose 92 Lactic Acid Calcium 8.8 D Magnesium Total Bilirubin 0.4 AST 18 ALT 17 Alkaline Phosphatase 95 Total Protein 6.1 L Albumin 3.4 L Influenza Type A (PCR) Influenza Type B (PCR) RSV RNA Qual (PCR) SARS-CoV-2 RNA (RT-PCR) Assessment and Plan (1) Cellulitis: Status: Acute (2) HTN (hypertension): Status: Acute (3) Fibromyalgia, primary: Status: Acute Plan 62-year-old female presents with recurrent cellulitis that has failed oral therapies.? Recent hospitalization at [facility] early August on IV Kefzol and discharged on Keflex.? Brief.? Resolution however over the last week symptoms have returned.? Subjective fever and chills 1. Right lower extremity cellulitis that failed (keflex), improving -vancomycin/Zosyn( D), should be ok to change to PO Doxy by 10/12 -follow Vanco level -oxycodone for pain -venous duplex negative for DVT -blood cultures x2 pending 2. Hypertension--higher side, continue Lisinpril and Metoprolol 3. chronic Anemia, baseline H/H 4. Fibromyalgia/chronic pain--oxycodone Lovenox Full Code Need for inpatient: IV antibiotics to treat cellulitis that has failed oral therapies.? This cannot be achieved a lesser acute setting Time Spent With Patient Time: Total time managing care of this patient today ____ minutes. Quality Stroke Does the patient have a stroke diagnosis?: No VTE Prior VTE?: No VTE Risk Level:: Medical - moderate - high VTE Device Contraindication: Treatment Not Indicated VTE Drug Contraindication: N/A - Med Ordered
--- NOTE | 2022-10-12 10:43 | MHC.CLN ---
RE: CONSULT FOR WT LOSS CURRENT WT 72.575KG PREVIOUS WT HX REVEALS 74.8KG (02/12/22) PT WITH 3% NON-SIGNIFICANT WT LOSS X APPROX. 6 MONTHS NO NEW ORDERS CONTINUE CURRENT CARE PLAN
[2022-10-12 12:39] LABS: Vancomycin Random 9.2 mcg/mL (15-20)
--- NOTE | 2022-10-12 14:07 | MHC.CM.PN ---
EMR REVIEWED, PT ADMITTED W/CELLULITIS AND PER HOSPITALIST ANTIC PT WILL D/C ON ORAL ABX TOMORROW 10/13, CM MET W/PT WHO WAS MILDLY IRRITABLE AND DID NOT WANT TO ANSWER QUESTIONS HOWEVER PT DID REPORT SHE HAS A CANE/WALKER, NO HOME SERVICES AND CAN ARRANGE FOR HER OWN RIDE HOME. PT DECLINED TO ANSWER ADDITIONAL QUESTIONS.
[2022-10-12] MEDS: Enoxaparin Sodium 40 MG/0.4 ML SYRINGE SUBCUT (14:31)
[2022-10-12] MEDS: SUMAtriptan succinate 25 MG TABLET PO (14:41)
[2022-10-12 15:38] VITALS: BP 143/84; PULSE 77; RESP 16; TEMP 36.5; O2SAT 92
[2022-10-12 19:33] VITALS: BP 110/55; PULSE 75; RESP 16; TEMP 36.2; O2SAT 95
[2022-10-12] MEDS: 0.9 % Sodium Chloride Flush 3 ML SYRINGE IVFLUSH (21:07)
[2022-10-13] MEDS: vancomycin HCL 1,000 MG in 0.9 % Sodium Chloride 250 ML 200 MG IV (01:22)
[2022-10-13 03:25] VITALS: BP 130/71; PULSE 60; RESP 17; TEMP 36.1; O2SAT 98
[2022-10-13] MEDS: Piperacillin Sodium/Tazobactam 4.5 GM in 0.9 % Sodium Chloride 100 ML IV (03:52)
[2022-10-13 06:35] LABS: MANUAL DIFF FLAG NO
[2022-10-13 06:40] LABS: Basophils Percent Auto 0.5 % (0-2); Eosinophils Absolute Auto 0.3 X10*3/uL (0.0-0.4); Eosinophils Percent Auto 3.1 % (0-4); Hematocrit 30.7 % (37.0-47.0); Hemoglobin 9.5 g/dl (12.0-16.0); Imm Gran Abs Auto 0.03 X10*3/uL (0.00-0.03); Imm Gran Pct Auto 0.3 % (0.0-0.4); Lymphocytes Absolute Auto 3.2 X10*3/uL (1.2-4.9); Mean Corpuscular HGB Conc 30.9 g/dl (31.0-35.0); Mean Corpuscular Hemoglobin 24.3 pg (27.0-33.0); Mean Corpuscular Volume 78.5 fL (80.0-98.0); Mean Platelet Volume 11.1 fL (9.4-12.3); Monocytes Absolute Auto 1.1 X10*3/uL (0.1-1.2); Monocytes Percent Auto 12.5 % (2-11); Neutrophils Absolute Auto 4.2 x10*3/uL (2.0-8.3); Neutrophils Percent Auto 47.6 % (45-73); Platelet Count 212 X10*3/uL (160-400); Red Blood Count 3.91 X10*6/uL (4.20-5.50); Red Cell Distribution Width 17.2 % (11.0-16.0); White Blood Count 8.7 X10*3/uL (4.8-10.8)
[2022-10-13 07:06] VITALS: BP 139/77; PULSE 89; RESP 18; TEMP 36.1; O2SAT 96
[2022-10-13 07:20] LABS: Alanine Aminotransferase 27 U/L (0-31); Albumin Level 3.3 g/dL (3.5-5.0); Alkaline Phosphatase 92 U/L (39-117); Anion Gap 14 (12-20); Aspartate Amino Transferase 32 U/L (5-31); Bilirubin Total 0.2 mg/dL (0.0-1.0); Blood Urea Nitrogen 12 mg/dL (9-16); Calcium 8.8 mg/dL (8.4-10.2); Carbon Dioxide 22 mmol/L (22-29); Chloride 110 mmol/L (96-108); Creatinine Clr Calc Pharmacy 66.3; Estimated Glomerular Filt Rate > 60; Glucose Fasting 94 mg/dL (60-99); Potassium 4.6 mmol/L (3.3-5.1); Sodium 141 mmol/L (135-145); Total Protein 6.3 g/dL (6.5-8.0)
[2022-10-13] MEDS: Nicotine 7 MG PATCH.TD24 TRANSDERMA (09:11)
[2022-10-13] MEDS: Metoprolol Succinate ER 25 MG TAB.ER.24H PO (09:11)
[2022-10-13] MEDS: DULoxetine HCl 20 MG CAPSULE.DR 40 MG PO (09:11)
[2022-10-13] MEDS: Multivitamin TABLET 1 TAB PO (09:11)
[2022-10-13] MEDS: Docusate Sodium 100 MG CAPSULE PO (09:11)
[2022-10-13] MEDS: lisinopriL 40 MG TABLET PO (09:11)
[2022-10-13] MEDS: 0.9 % Sodium Chloride Flush 3 ML SYRINGE IVFLUSH (09:12)
[2022-10-13] MEDS: Acetaminophen 325 MG TABLET 650 MG PO (09:57)
--- NOTE | 2022-10-13 10:54 | P.DS_ITS ---
DS: Providers Provider Date of Service: 10/13/22 Date of admission: 10/11/22 13:34 Date of discharge: 10/13/22 Primary care physician: [facility] Attending physician on discharge: Virginia Wilson Discharging clinician: Alberta Tiwari DS: Diagnosis Discharge Diagnosis (1) Cellulitis: Status: Acute (2) HTN (hypertension): Status: Acute (3) Fibromyalgia, primary: Status: Acute DS: Summary Hospital Course Hospital Course: From H&P on day of admission 62-year-old female recently admitted to [facility] 08/25/2022 for right leg cellulitis.? She states she was treated with Kefzol for a total of 5 days.? She was discharged on oral Keflex and was good until approximately 1 week ago where she developed again redness from her foot to her groin fold.? She states her leg is painful tight and warm to touch.? In the emergency room venous duplex was negative for DVT.? Was given a dose of Z osyn and blood cultures obtained Right leg cellulitis, reucrrent. Erythema has resolved. There is some persistent edema. US showed no evidence of DVT. X-ray of the knee showed edema but no joint effusion. She has no change in range of motion at her right knee joint since her knee replacement 1 year ago. She has been afebrile, has no leukocytosis and is able to ambulate. She will be discharged home with course of oral antibiotics. She should call to schedule follow-up appointment with her PCP to consider possible repeat DVT study in the near future if no resolution of edema and is also recommended to call her orthopedic surgeon to consider follow- up appointment with them as well. Time Spent with Patient Time attestation: Total time managing care of this patient today ____ minutes. Discharge coordination time: Greater than 30 minutes Quality: Safe Use of Opioids Does Pt have an Active Cancer Diagnosis on the Problem List?: No Quality: Stroke Does the patient have a stroke diagnosis?: No Physical Exam Vital Signs: Vital Signs: Last Vital Signs Temp 97 F 10/13/22 07:06 Pulse 89 10/13/22 07:06 Resp 18 10/13/22 07:06 BP 139/77 10/13/22 07:06 Pulse Ox 96 10/13/22 07:06 O2 Del Method 10/13/22 03:25 O2 Flow Rate 1 01/26/23 03:24 BMI result Body Mass Index 27.4 Const: General: cooperative, comfortable, alert and awake Nutritional Appearance: average body habitus Orientation/consciousness: patient oriented x3 Resp: Effort & Inspection: normal respiratory effort and able to speak in complete sentences Cardio: Rate: regular rate Heart sounds: S1 normal heart sound present and S2 normal heart sound present GI: Palpation (GI): Soft to palpation and nontender Neuro: General: patient oriented x3 Extrem: Other: right knee, right lower leg with swelling, no pitting edema; no erythema around right knee, no joint effusion. no open wounds, erythema or drainage of right leg DS: Data Data Completed and Pending Labs on day of discharge: Laboratory Results - last 24 hr 10/12/22 10/13/22 10/13/22 12:17 05:48 05:48 WBC 8.7 RBC 3.91 L Hgb 9.5 L Hct 30.7 L MCV 78.5 L MCH 24.3 L MCHC 30.9 L RDW 17.2 H Plt Count 212 MPV 11.1 Immature Gran % (Auto) 0.3 Neut % (Auto) 47.6 Lymph % (Auto) 36.0 [place] % (Auto) 12.5 H Eos % (Auto) 3.1 Baso % (Auto) 0.5 Lymph # (Auto) 3.2 [place] # (Auto) 1.1 Eos # (Auto) 0.3 Baso # (Auto) 0.0 Abs Immat Gran (auto) 0.03 Absolute Neuts (auto) 4.2 Absolute Nucleated RBC 0.000 Nucleated RBC % (auto) 0.0 Sodium 141 Potassium 4.6 Chloride 110 H Carbon Dioxide 22 Anion Gap 14 BUN 12 Creatinine 0.88 Estim Creat Clear Calc 66.3 Estimated GFR > 60 Fasting Glucose 94 Calcium 8.8 Total Bilirubin 0.2 AST 32 H ALT 27 Alkaline Phosphatase 92 Total Protein 6.3 L Albumin 3.3 L Random Vancomycin 9.2 L Preliminary micro results at discharge 10/11/22 11:38 Blood Culture - Preliminary Blood - Venous No growth after 24 hours. 10/11/22 11:38 Blood Culture - Preliminary Blood - Venous No growth after 24 hours. Discharge Plan Discharge Anticipated Discharge Date/Time: 10/13/22 12:23 Patient Disposition: Home, Self-Care Discharge Diagnosis: right leg cellulitis Referrals: [facility] [Primary Care Provider] - 1 Week Discharge Medications: New doxycycline monohydrate 100 mg Capsule 100 mg PO Q12H 10 Days Qty: 20 0RF ondansetron 4 mg tablet,disintegrating 4 mg PO Q8H PRN (Reason: nausea and vomiting) Qty: 10 0RF oxycodone 5 mg tablet 5 mg PO BID PRN (Reason: pain) Qty: 10 0RF Rx Instructions: Partial Fill upon patient request. Continued tizanidine 2 mg tablet 1 tab PO Q8H PRN (Reason: Muscle Spasm) sumatriptan succinate 25 mg tablet 25 mg PO DAILY PRN (Reason: Migraine Headache) petrolatum Ointment 1 appl topical BID PRN (Reason: Itching) meloxicam 7.5 mg tablet 1 tab PO QAM docusate sodium 100 mg capsule 1 cap PO DAILY metoprolol succinate 25 mg tablet extended release 24 hr 1 tab PO DAILY lisinopril 40 mg tablet 1 tab PO DAILY duloxetine 20 mg capsule,delayed release(DR/EC) 2 cap PO QAM Spectravite Adult 18-400 mg-mcg tablet 1 tab PO DAILY acetaminophen 650 mg tablet extended release 2 tab PO Q8H PRN (Reason: pain) nitroglycerin 0.4 mg tablet, sublingual 1 tab sublingual Q5M oxycodone 5 mg tablet 5 mg PO Q6H PRN (Reason: pain) Qty: 20 0RF albuterol sulfate [ProAir HFA] 90 mcg/actuation HFA aerosol inhaler 2 puff inhalation Q4-6H PRN (Reason: shortness of breath or wheezing) 30 Days Qty: 8.5 3RF Discharge Orders: Discharge Order (Routine); Ordered 10/13/22 Ordered By: Alberta Tiwari Activity on Discharge: As tolerated Stand Alone Forms: Patient Portal Discharge page Care Plan Goals: see below Health Concerns: complete course of antibiotics as prescribed call to schedule follow-up appointment with PCP, can consider repeat lower extremity ultrasound if swelling persists keep leg elevated when not ambulating Plan of Treatment: see above Assessment: see discharge summary Discharge Date/Time: 10/13/22 14:20
[2022-10-13] MEDS: Doxycycline Monohydrate 100 MG CAPSULE PO (11:57)
[2022-10-13 12:19] LABS: Vancomycin Trough 15.4 mcg/mL (10.0-20.0)
--- NOTE | 2022-10-13 12:49 | MHC.CM.PN ---
PT MEDICALLY CLEARED FOR D/C HOME NO SERVICES, PT WILL ARRANGE TRANSPORT
[2022-10-13] MEDS: ondansetron HCL 4 MG/2 ML VIAL IVPUSH (12:57)
[2022-10-13] MEDS: Enoxaparin Sodium 40 MG/0.4 ML SYRINGE SUBCUT (13:01)
== END 2022-10-13 14:20 | disposition home or self-care (01) | DRG 383 ==
LOC: HO.ED 12:27 → HO.EDOVER 13:47 → HO.S3 13:57
PROVIDERS: Physician Assistant Medical; Admitting Provider Hospitalist; Emergency Provider Emergency Medicine; PCP Nurse Practitioner Primary Care; Visit Provider Physician Assistant Medical
DX: L03.115 Cellulitis of right lower limb (principal); F17.210 Nicotine dependence, cigarettes, uncomplicated; I10 Essential (primary) hypertension; M79.7 Fibromyalgia; G89.29 Other chronic pain; Z20.822 Contact with and (suspected) exposure to COVID-19; Z88.6 Allergy status to analgesic agent; Z88.8 Allergy status to other drugs, medicaments and biological substances; Z79.899 Other long term (current) drug therapy
CPT/HCPCS: 0241U; 36415; 73560; 80053; 80202; 83605; 83735; 85025; 85610; 87040; 93971; 99285; J1650; J2405; J2543; J3370

== ENCOUNTER 2022-10-23 10:25 | Emergency (ER) | payer MEDICAID, SELFPAY ==
[2022-10-23 10:29] VITALS: BP 198/97; PULSE 96; RESP 18; TEMP 36.8; O2SAT 98; BMI 27.4
[2022-10-23 10:58] LABS: MANUAL DIFF FLAG NO
[2022-10-23 11:01] LABS: Basophils Absolute Auto 0.1 X10*3/uL (0.0-0.2); Basophils Percent Auto 0.7 % (0-2); Eosinophils Absolute Auto 0.3 X10*3/uL (0.0-0.4); Eosinophils Percent Auto 3.4 % (0-4); Hematocrit 34.5 % (37.0-47.0); Hemoglobin 10.5 g/dl (12.0-16.0); Imm Gran Abs Auto 0.03 X10*3/uL (0.00-0.03); Imm Gran Pct Auto 0.3 % (0.0-0.4); Lymphocytes Absolute Auto 3.6 X10*3/uL (1.2-4.9); Lymphocytes Percent Auto 38.4 % (20-40); Mean Corpuscular HGB Conc 30.4 g/dl (31.0-35.0); Mean Corpuscular Volume 78.8 fL (80.0-98.0); Mean Platelet Volume 10.6 fL (9.4-12.3); Monocytes Absolute Auto 0.8 X10*3/uL (0.1-1.2); Monocytes Percent Auto 7.9 % (2-11); Neutrophils Absolute Auto 4.7 x10*3/uL (2.0-8.3); Neutrophils Percent Auto 49.3 % (45-73); Platelet Count 319 X10*3/uL (160-400); Red Blood Count 4.38 X10*6/uL (4.20-5.50); Red Cell Distribution Width 17.2 % (11.0-16.0); White Blood Count 9.5 X10*3/uL (4.8-10.8)
[2022-10-23 11:15] LABS: Alanine Aminotransferase 23 U/L (0-31); Albumin Level 4.1 g/dL (3.5-5.0); Alkaline Phosphatase 104 U/L (39-117); Anion Gap 12 (12-20); Aspartate Amino Transferase 17 U/L (5-31); Bilirubin Total 0.3 mg/dL (0.0-1.0); Blood Urea Nitrogen 18 mg/dL (9-16); Calcium 9.5 mg/dL (8.4-10.2); Carbon Dioxide 23 mmol/L (22-29); Chloride 108 mmol/L (96-108); Creatinine Clr Calc Pharmacy 67.1; Estimated Glomerular Filt Rate > 60; Glucose Random 82 mg/dL (60-115); Potassium 4.3 mmol/L (3.3-5.1); Sodium 139 mmol/L (135-145); Total Protein 7.1 g/dL (6.5-8.0)
== END 2022-10-23 15:00 | disposition left against medical advice (07) ==
PROVIDERS: Emergency Provider Emergency Medicine; PCP Nurse Practitioner Primary Care
DX: R10.9 Unspecified abdominal pain (principal); R22.41 Localized swelling, mass and lump, right lower limb; R51.9 Headache, unspecified
CPT/HCPCS: 36415; 80053; 85025; 99281; 99283

== ENCOUNTER → 2022-12-01 13:07 | Outpatient (BNVA) | payer MEDICAID, SELFPAY | PROVIDERS: PCP Nurse Practitioner Primary Care; Visit Provider Internal Medicine | DX: L03.115 Cellulitis of right lower limb (principal) | CPT/HCPCS: 99202 ==

== ENCOUNTER 2022-12-07 09:12 | Emergency (ER) | payer MEDICAID, SELFPAY ==
--- NOTE | ~2022-12-07 | CT_ITS ---
EXAMINATION: CT ABDOMEN AND PELVIS WITH CONTRAST CLINICAL INFORMATION: Right lower quadrant tenderness COMPARISON: CT abdomen and pelvis with contrast 11/15/2021 TECHNIQUE: Multidetector volumetric images were obtained from the superior aspect of the liver through the pubic symphysis following administration 85 mL of Omnipaque 350 intravenous contrast. Sagittal and coronal reformatted images were obtained on the technologist's workstation. Oral contrast: No This CT examination was performed using dose optimization techniques as appropriate, variously including the following: *Automated exposure control *Adjustment of mA and/or kV according to patient size (this includes techniques or standardized protocols for targeted exams where dose is matched to indication/reason for exam; i.e. extremities or head) *Use of iterative reconstruction technique DLP: 569 mGy-cm FINDINGS: LUNG BASES: There is platelike atelectasis right middle lobe. The lung bases are clear. Heart size is normal. LIVER, GALLBLADDER, AND BILIARY TREE: The liver is normal in size, shape, and attenuation. No focal hepatic lesion or biliary ductal dilatation is present. The gallbladder is unremarkable with no evidence of radiopaque gallstones, gallbladder wall thickening, or obvious pericholecystic inflammatory changes. PANCREAS: Unremarkable. SPLEEN: Unremarkable. ADRENAL GLANDS: Unremarkable. KIDNEYS AND URETERS: The kidneys are normal in size, shape, and attenuation. There is a small cortical defect along the upper pole lateral cortex right kidney No hydronephrosis, hydroureter, or calculi seen. Previously seen radiopaque calculi upper pole right kidney is not visualized at this time. There is minimal perinephric stranding. There is a 1 cm hypodensity upper and lower pole left kidney likely simple cysts. BLADDER: Unremarkable. GASTROINTESTINAL TRACT: There is scattered stool and gas seen throughout the colon without significant distention. The small bowel loops are normal caliber. There is no free air. There are surgical pineda in bilateral adnexa. There is no free fluid or free air. ABDOMINAL WALL: No significant hernia is appreciated. LYMPH NODES: Normal. VASCULAR: Unremarkable. PELVIC VISCERA: Unremarkable. OSSEOUS STRUCTURES: No aggressive lytic or sclerotic process seen. There is bilateral L5-S1, L4-L5 and L3-L4 facet joint arthropathy and hypertrophy. CT/CT abdomen pelvis w IV con IMPRESSION: 1. No acute intra-abdominal process seen. 2. Mild constipation. 3. Left renal cysts are stable. Previously seen right renal calculi is not visualized at this time 4. No major change from previous study 11/15/2021 except for nonvisualization of right renal calculi Fleischner guidelines were followed.
[2022-12-07 09:19] VITALS: BP 153/87; PULSE 96; RESP 18; TEMP 36.4; O2SAT 98; BMI 29.3
--- NOTE | 2022-12-07 09:44 | ED.ABDPAIN ---
HPI - Abdominal Pain General Chief Complaint: Abdominal Pain Stated Complaint: Abd pain/R leg pain Time Seen by Provider: 12/07/22 09:44 Source: patient Mode of arrival: ambulatory Limitations: no limitations History of Present Illness HPI narrative: 62 yo female with history of cervical cancer 1996, self-catheterizes since, migraines, arthritis, fibromyalgia, recurrent RLE cellulitis s/p admission at [facility] in August and a few courses of oral abx as an oupatient who presents to [facility] ER for evaluation of 10/10 lower abdominal pains for the last 2 days. She reports the pain radiates to her back and down her right leg. She is nauseated and started having diarrhea this morning. No fevers but reports chills. She is worried the cellulitis of her right leg may be coming back. She states the skin on her upper thigh feels warm. She states she has been self-cathing as usual, no changes in color or smell of the urine. MD elicited complaint: abdominal pain Onset (ago): day(s) (2) Pain Consistency: constant Location: RLQ, LLQ and suprapubic Severity: severe Pain scale (0-10): 10 Quality: stabbing and aching Radiation: back and other (right leg) Migration to: no migration Exacerbating factors: nothing Relieving factors: nothing Associated symptoms: nausea, diarrhea and chills Related Data Home Medications Medication Instructions Recorded Confirmed acetaminophen 650 mg 2 tab PO Q8H PRN pain 10/11/22 10/11/22 tablet,extended release docusate sodium 100 mg capsule 1 cap PO DAILY constipation 10/11/22 10/11/22 duloxetine 20 mg capsule,delayed 2 cap PO QAM 10/11/22 10/11/22 release lisinopril 40 mg tablet 1 tab PO DAILY 10/11/22 10/11/22 meloxicam 7.5 mg tablet 1 tab PO QAM 10/11/22 10/11/22 metoprolol succinate 25 mg 1 tab PO DAILY 10/11/22 10/11/22 tablet,extended release 24 hr multivitamin-ferrous 1 tab PO DAILY 10/11/22 10/11/22 fumarate-folic acid 18 mg-400 mcg tablet (Spectravite Adult) nitroglycerin 0.4 mg sublingual 1 tab sublingual Q5M angina 10/11/22 10/11/22 tablet sumatriptan succinate 25 mg tablet 25 mg PO DAILY PRN Migraine 10/11/22 10/11/22 Headache tizanidine 2 mg tablet 1 tab PO Q8H PRN Muscle Spasm 10/11/22 10/11/22 Previous Rx's Medication Instructions Recorded albuterol sulfate 90 mcg/actuation 2 puff inhalation Q4-6H PRN 08/03/20 aerosol inhaler (ProAir HFA) shortness of breath or wheezing 30 days #8.5 grams doxycycline monohydrate 100 mg 100 mg PO Q12H 10 days #20 caps 10/13/22 capsule ondansetron 4 mg disintegrating 4 mg PO Q8H PRN nausea and 10/13/22 tablet vomiting #10 tabs penicillin V potassium 250 mg 250 mg PO BID 30 days #60 tabs 12/01/22 tablet terbinafine HCl 1 % topical cream 1 appl topical BID 30 days #30 12/01/22 (Lamisil AT) grams Allergies Allergy/AdvReac Type Severity Reaction Status Date / Time buspirone [From BuSpar] Allergy Mild Tongue Verified 12/07/22 09:21 Swelling, dizziness ibuprofen [From Motrin] AdvReac Mild Rash, HTN Verified 12/07/22 09:21 Review of Systems Review of Systems Yes all other systems are reviewed and are negative [facility] Past Medical History Medical History (Updated 12/07/22 @ 12:54 by GUERITA Walter) Anemia Arthritis Dyspnea on exertion Fibromyalgia, primary History of cervical cancer HTN (hypertension) Migraines Recurrent cellulitis of lower extremity Surgical History H/O: hysterectomy Social History Social History Household Members: Family Housing: House Do you presently have visiting nurse or other home services: No Alcohol intake: unknown Patient Tobacco Use Status: Current everyday Tobacco user Tobacco use type: Cigarette Cigarettes Per Day: 4 Use of substances other than those prescribed or required for medical reasons: Unknown Advance Directives: No Advance Directives Information Provided: No Advance Directives Date on File: 12/05/16 service: No Current occupational status: unemployed Physical Exam ED Vital Signs: Vital Signs - 24 hr 12/07/22 09:19 12/07/22 12:46 Temperature 97.5 F 97.6 F Pulse Rate 96 76 Respiratory Rate 18 14 Blood Pressure 153/87 H 137/77 Pulse Oximetry 98 99 Oxygen Delivery Method Room Air Room Air BMI result Body Mass Index 29.3 Appearance: Alert. Oriented X3. No acute distress. Eyes: Pupils equal, round and reactive to light. ENT: Pharynx normal. Neck: Normal inspection. Neck supple. CVS: Normal heart rate and rhythm. Pulses normal. Respiratory: No respiratory distress. Breath sounds normal. Abdomen: well healed longitudinal scar on the abdomen and right pelvic area. Soft with RLQ tenderness to deep palpation. normal active +BS x4 Skin: Skin warm and dry. Normal skin color. Normal skin turgor. No rashes. Extremities: No lower extremity edema. Lower extremities are symmetrical, no erythema or warmth noted. Neuro: Oriented X 3. No motor deficit. No sensory deficit. Medical Decision Making Medical Decision Making [facility] Narrative: 62 yo female presenting with lower abdominal pain for the last 2 days that radiates to her back and down her leg. Also c/o headache. No evidence of RLE cellulitis on exam. Lower abdominal tenderness, R>L prompted CT scan which showed only mild constipation. No kidney stones. No UTI. Pain is improved after morphine and toradol. She is tolerating PO. At this time she is stable for discharge home with outpatient follow up. Pt agrees with plan and all questions were answered. Differential Diagnosis Differential Diagnoses: The differential diagnosis associated with the presentation includes acute appendicitis, colitis, viral gastroenteritis, UTI, pyelonephritis, RLE cellulitis, sciatica Lab Data [facility] Lab Attestation statement: I reviewed the patient's lab results. Stable normocytic anemia, no major metabolic derangement. 12/07/22 09:57 12/07/22 09:57 Labs: Lab Results 12/07/22 12/07/22 12/07/22 Range/Units 09:57 09:57 11:34 WBC 8.3 (4.8-10.8) X10*3/uL RBC 4.29 (4.20-5.50) X10*6/uL Hgb 10.2 L (12.0-16.0) g/dl Hct 33.5 L (37.0-47.0) % MCV 78.1 L (80.0-98.0) fL MCH 23.8 L (27.0-33.0) pg MCHC 30.4 L (31.0-35.0) g/dl RDW 17.2 H (11.0-16.0) % Plt Count 284 (160-400) X10*3/uL MPV 10.3 (9.4-12.3) fL Immature Gran % (Auto) 0.2 (0.0-0.4) % Neut % (Auto) 45.6 (45-73) % Lymph % (Auto) 42.9 H (20-40) % Finney % (Auto) 7.2 (2-11) % Eos % (Auto) 3.6 (0-4) % Baso % (Auto) 0.5 (0-2) % Lymph # (Auto) 3.6 (1.2-4.9) X10*3/uL Finney # (Auto) 0.6 (0.1-1.2) X10*3/uL Eos # (Auto) 0.3 (0.0-0.4) X10*3/uL Baso # (Auto) 0.0 (0.0-0.2) X10*3/uL Abs Immat Gran (auto) 0.02 (0.00-0.03) X10*3/uL Absolute Neuts (auto) 3.8 (2.0-8.3) x10*3/uL Absolute Nucleated RBC 0.000 (0.0-0.012) X10*3/uL Nucleated RBC % (auto) 0.0 (0.0-0.2) /100WBC Sodium 140 (135-145) mmol/L Potassium 4.0 (3.3-5.1) mmol/L Chloride 108 (96-108) mmol/L Carbon Dioxide 21 L (22-29) mmol/L Anion Gap 15 (12-20) BUN 14 (9-16) mg/dL Creatinine 0.79 (0.5-1.4) mg/dL Estim Creat Clear Calc 76.2 Estimated GFR > 60 Fasting Glucose 88 (60-99) mg/dL Calcium 9.7 (8.4-10.2) mg/dL Total Bilirubin 0.4 (0.0-1.0) mg/dL AST 17 (5-31) U/L ALT 17 (0-31) U/L Alkaline Phosphatase 92 (39-117) U/L Total Protein 7.3 (6.5-8.0) g/dL Albumin 4.2 (3.5-5.0) g/dL Urine Color Yellow Urine Appearance Clear Urine pH 6.5 (5.0-9.0) Ur Specific Lorane >= 1.030 H (1.005-1.025) Urine Protein Negative (Neg-Trace) mg/dL Urine Glucose (UA) Negative (Negative) mg/dL Urine Ketones Negative (Negative) mg/dL Urine Blood Negative (Negative) Urine Nitrite Negative (Negative) Ur Leukocyte Esterase Negative (Negative) Urine RBC 0-2 (0-2) /HPF Urine WBC 0-5 (0-5) /HPF Ur Squamous Epith Cells 0-2 (0-2) /HPF Urine Bacteria None Seen (None Seen) Hyaline Casts 0-2 (0-2) /LPF Independent Interpretation I performed an independent interpretation of an: CT Scan Interpretation: I reviewed the CT abdomen and agree with radiology report. Radiology Impression Discussion of test interpretation with radiology: I have reviewed the radiologist's reading. Radiologist Impression: FINDINGS: LUNG BASES: There is platelike atelectasis right middle lobe. The lung bases are clear. Heart size is normal.? LIVER, GALLBLADDER, AND BILIARY TREE: The liver is normal in size, shape, and attenuation. No focal hepatic lesion or biliary ductal dilatation is present. The gallbladder is unremarkable with no evidence of radiopaque gallstones, gallbladder wall thickening, or obvious pericholecystic inflammatory changes.? PANCREAS: Unremarkable.? SPLEEN: Unremarkable.? ADRENAL GLANDS: Unremarkable.? KIDNEYS AND URETERS: The kidneys are normal in size, shape, and attenuation. There is a small cortical defect along the upper pole lateral cortex right kidney No hydronephrosis, hydroureter, or calculi seen. Previously seen radiopaque calculi upper pole right kidney is not visualized at this time. There is minimal perinephric stranding. There is a 1 cm hypodensity upper and lower pole left kidney likely simple cysts. BLADDER: Unremarkable.? GASTROINTESTINAL TRACT: There is scattered stool and gas seen throughout the colon without significant distention. The small bowel loops are normal caliber. There is no free air. There are surgical pineda in bilateral adnexa. There is no free fluid or free air. ABDOMINAL WALL: No significant hernia is appreciated.? LYMPH NODES: Normal. VASCULAR: Unremarkable. PELVIC VISCERA: Unremarkable.? OSSEOUS STRUCTURES: No aggressive lytic or sclerotic process seen. There is bilateral L5-S1, L4-L5 and L3-L4 facet joint arthropathy and hypertrophy.? CT/CT abdomen pelvis w IV con IMPRESSION: 1.? No acute intra-abdominal process seen. 2.? Mild constipation. 3.? Left renal cysts are stable. Previously seen right renal calculi is not visualized at this time 4. ? No major change from previous study 11/15/2021 except for nonvisualization of right renal calculi ? Fleischner guidelines were followed. External Record Review External record reviewed: Outpatient record, Prior outpatient labs and Prior outpatient radiology Prescription Management I considered prescription management with: Pain Medication Medications Administered Discontinued Medications Generic Name Dose Route Start Last Admin Trade Name Freq PRN Reason Stop Dose Admin Iohexol 85 ml 12/07/22 11:11 12/07/22 11:12 Iohexol 350 Mg/Ml 100 Ml Infus..Btl IV 12/07/22 11:12 85 ml ONCE ONE Administration Ketorolac Tromethamine 30 mg 12/07/22 11:08 12/07/22 11:21 Ketorolac Tromethamine 30 Mg/Ml Vial IVPUSH 12/07/22 11:09 30 mg ONCE ONE Administration Morphine Sulfate 4 mg 12/07/22 09:50 12/07/22 10:02 Morphine Sulfate 4 Mg/Ml Cartridge IVPUSH 12/07/22 09:51 4 mg ONCE ONE Administration Protocol Ondansetron HCl 4 mg 12/07/22 09:50 12/07/22 10:02 Ondansetron Hcl 4 Mg/2 Ml Vial IVPUSH 12/07/22 09:51 4 mg ONCE ONE Administration Critical Care Time Critical Care Time Critical Care Time: No Discharge Plan Discharge Clinical Impression: Abdominal pain, Constipation Patient Disposition: Home, Self-Care Instructions: Abdominal Pain (ED) Additional Instructions: Your lab workup today was unremarkable. Your CT scan only showed some mild constipation Your urine test did not show any evidence of infection. Recommend rest, staying hydrated drinking plenty of water. Stick to a bland diet where not feeling well. Follow-up with primary care doctor. If you develop new or worsening symptoms call 911 or come back to the ER for further evaluation. Prescriptions: No Action tizanidine 2 mg tablet 1 tab PO Q8H PRN (Reason: Muscle Spasm) sumatriptan succinate 25 mg tablet 25 mg PO DAILY PRN (Reason: Migraine Headache) meloxicam 7.5 mg tablet 1 tab PO QAM docusate sodium 100 mg capsule 1 cap PO DAILY metoprolol succinate 25 mg tablet extended release 24 hr 1 tab PO DAILY lisinopril 40 mg tablet 1 tab PO DAILY duloxetine 20 mg capsule,delayed release(DR/EC) 2 cap PO QAM Spectravite Adult 18-400 mg-mcg tablet 1 tab PO DAILY acetaminophen 650 mg tablet extended release 2 tab PO Q8H PRN (Reason: pain) nitroglycerin 0.4 mg tablet, sublingual 1 tab sublingual Q5M doxycycline monohydrate 100 mg Capsule 100 mg PO Q12H 10 Days Qty: 20 0RF ondansetron 4 mg tablet,disintegrating 4 mg PO Q8H PRN (Reason: nausea and vomiting) Qty: 10 0RF albuterol sulfate [ProAir HFA] 90 mcg/actuation HFA aerosol inhaler 2 puff inhalation Q4-6H PRN (Reason: shortness of breath or wheezing) 30 Days Qty: 8.5 3RF terbinafine HCl [Lamisil AT] 1 % cream 1 appl topical BID 30 Days Qty: 30 1RF penicillin V potassium 250 mg tablet 250 mg PO BID 30 Days Qty: 60 5RF Referrals: Lilly Cowart MD [Primary Care Provider] -
--- NOTE | 2022-12-07 09:47 | PC.NURSE ---
Provider at bedside will CTM
[2022-12-07] MEDS: ondansetron HCL 4 MG/2 ML VIAL IVPUSH (10:02)
[2022-12-07] MEDS: Morphine Sulfate 4 MG/ML CARTRIDGE IVPUSH (10:02)
[2022-12-07 10:03] LABS: MANUAL DIFF FLAG NO
[2022-12-07 10:05] LABS: Basophils Percent Auto 0.5 % (0-2); Eosinophils Absolute Auto 0.3 X10*3/uL (0.0-0.4); Eosinophils Percent Auto 3.6 % (0-4); Hematocrit 33.5 % (37.0-47.0); Hemoglobin 10.2 g/dl (12.0-16.0); Imm Gran Abs Auto 0.02 X10*3/uL (0.00-0.03); Imm Gran Pct Auto 0.2 % (0.0-0.4); Lymphocytes Absolute Auto 3.6 X10*3/uL (1.2-4.9); Lymphocytes Percent Auto 42.9 % (20-40); Mean Corpuscular HGB Conc 30.4 g/dl (31.0-35.0); Mean Corpuscular Hemoglobin 23.8 pg (27.0-33.0); Mean Corpuscular Volume 78.1 fL (80.0-98.0); Mean Platelet Volume 10.3 fL (9.4-12.3); Monocytes Absolute Auto 0.6 X10*3/uL (0.1-1.2); Monocytes Percent Auto 7.2 % (2-11); Neutrophils Absolute Auto 3.8 x10*3/uL (2.0-8.3); Neutrophils Percent Auto 45.6 % (45-73); Platelet Count 284 X10*3/uL (160-400); Red Blood Count 4.29 X10*6/uL (4.20-5.50); Red Cell Distribution Width 17.2 % (11.0-16.0); White Blood Count 8.3 X10*3/uL (4.8-10.8)
--- NOTE | 2022-12-07 10:11 | PC.NURSE ---
Patient presents to ED with report of diffuse lower abd pain Right>left no guarding noted tender per patient BS quad x 4. AOx 4 neuros intact. IV access obtained labs collected and sent. No respiratory distress noted. Patient reports 8/10 ABD pain tolerated IVP pain med and IVP anti emetic will CTM
[2022-12-07 10:26] LABS: Alanine Aminotransferase 17 U/L (0-31); Albumin Level 4.2 g/dL (3.5-5.0); Alkaline Phosphatase 92 U/L (39-117); Anion Gap 15 (12-20); Aspartate Amino Transferase 17 U/L (5-31); Bilirubin Total 0.4 mg/dL (0.0-1.0); Blood Urea Nitrogen 14 mg/dL (9-16); Calcium 9.7 mg/dL (8.4-10.2); Carbon Dioxide 21 mmol/L (22-29); Chloride 108 mmol/L (96-108); Creatinine Clr Calc Pharmacy 76.2; Estimated Glomerular Filt Rate > 60; Glucose Fasting 88 mg/dL (60-99); Sodium 140 mmol/L (135-145); Total Protein 7.3 g/dL (6.5-8.0)
--- NOTE | 2022-12-07 10:31 | PC.NURSE ---
Asher monge herself for urine at baseline provider aware will ctm
--- NOTE | 2022-12-07 10:48 | PC.NURSE ---
Patient reports some relief from morphine for belly pain but reports headache provider aware will CTM await orders
[2022-12-07] MEDS: iohexoL 350 MG/ML 100 ML INFUS..BTL 85 ML IV (11:12)
[2022-12-07] MEDS: Ketorolac Tromethamine 30 MG/ML VIAL IVPUSH (11:21)
--- NOTE | 2022-12-07 11:38 | PC.NURSE ---
Patient straight cathed self for urine
[2022-12-07 11:42] LABS: Appearance Urine Clear; Color Urine Yellow; Glucose Urine UA Negative (Negative); Leukocyte Esterase Urine Negative (Negative); Nitrite Urine Negative (Negative); PH 6.5 (5.0-9.0); Specific Gravity - Urine >= 1.030 (1.005-1.025); Urine Blood Negative (Negative); Urine Ketones Negative (Negative); Urine Protein Negative (Neg-Trace)
[2022-12-07 11:44] LABS: Bacteria Urine None Seen (None Seen); Hyaline Casts Urine 0-2 /LPF (0-2); RBC Urine 0-2 /HPF (0-2); Squamous Epithelial Cell Urine 0-2 /HPF (0-2); WBC Urine 0-5 /HPF (0-5)
[2022-12-07 12:46] VITALS: BP 137/77; PULSE 76; RESP 14; TEMP 36.4; O2SAT 99
== END 2022-12-07 13:13 | disposition home or self-care (01) ==
PROVIDERS: Emergency Provider Student in an Organized Health Care Education/Training Program; PCP General Practice
DX: K59.00 Constipation, unspecified (principal); R10.30 Lower abdominal pain, unspecified; F17.210 Nicotine dependence, cigarettes, uncomplicated
CPT/HCPCS: 36415; 74177; 80053; 81001; 85025; 96374; 96375; 99284; J1885; J2270; J2405; Q9967

== ENCOUNTER 2022-12-20 14:05 | Outpatient (REF) | payer MEDICAID, SELFPAY ==
--- NOTE | ~2022-12-20 | CT_ITS ---
EXAMINATION: CT ABDOMEN AND PELVIS WITH CONTRAST CLINICAL INFORMATION: Right lower quadrant abdominal pain COMPARISON: CT abdomen and pelvis 12/07/2022 TECHNIQUE: Multidetector volumetric images were obtained from the superior aspect of the liver through the pubic symphysis following administration 85 mL of Omnipaque 350 intravenous contrast. Sagittal and coronal reformatted images were obtained on the technologist's workstation. Oral contrast: Yes This CT examination was performed using dose optimization techniques as appropriate, variously including the following: *Automated exposure control *Adjustment of mA and/or kV according to patient size (this includes techniques or standardized protocols for targeted exams where dose is matched to indication/reason for exam; i.e. extremities or head) *Use of iterative reconstruction technique DLP: 646 mGy-cm FINDINGS: LUNG BASES: No suspicious lung nodule. LIVER, GALLBLADDER, AND BILIARY TREE: The liver is normal in size, shape, and attenuation. No focal hepatic lesion or biliary ductal dilatation is present. The gallbladder is unremarkable with no evidence of radiopaque gallstones, gallbladder wall thickening, or obvious pericholecystic inflammatory changes. PANCREAS: No discrete mass. No ductal dilatation. No focal atrophy. SPLEEN: Normal. ADRENAL GLANDS: No adrenal mass per KIDNEYS AND URETERS: Symmetric nephrograms. No nephrolithiasis or hydronephrosis. Small simple cysts in the left kidney. No imaging follow-up is recommended. BLADDER: Unremarkable. GASTROINTESTINAL TRACT: Small bowel is normal in caliber. No mesenteric mass or fluid. The appendix is normal. The large bowel is normal in caliber. No evidence of colitis. No inflammatory changes in the right lower quadrant to correlate with right lower quadrant abdominal pain. ABDOMINAL WALL: No significant hernia is appreciated. LYMPH NODES: No lymphadenopathy. VASCULAR: Mild aortoiliac atherosclerosis. No aortic aneurysm. PELVIC VISCERA: Hysterectomy. The ovaries are unremarkable. OSSEOUS STRUCTURES: Degenerative changes in the spine. CT/CT abdomen pelvis w IV con IMPRESSION: No acute findings in the abdomen/pelvis to correlate with right lower quadrant abdominal pain. Normal appendix. No nephrolithiasis or hydronephrosis. Stable CT compared to 12/07/2022. Fleischner guidelines were followed.
[2022-12-20] MEDS: Barium Sulfate Oral (Berry) 450 ML ORAL.SUSP 900 ML PO (17:03)
[2022-12-20] MEDS: iohexoL 350 MG/ML 100 ML INFUS..BTL IV (17:03)
== END 2022-12-20 14:06 | disposition home or self-care (01) ==
LOC: HO.CT 14:05
PROVIDERS: PCP General Practice; Visit Provider Internal Medicine
DX: M79.604 Pain in right leg (principal); M79.89 Other specified soft tissue disorders
CPT/HCPCS: 74177; Q9967

== ENCOUNTER 2023-04-13 15:34 | Emergency (ER) | payer MEDICAID, SELFPAY ==
[2023-04-13 15:48] VITALS: BP 147/94; PULSE 87; RESP 16; TEMP 36.8; O2SAT 97; BMI 31.9
--- NOTE | 2023-04-13 15:49 | ED_ITS ---
HPI - General Adult General Chief complaint: Skin/Abscess/Foreign Body Stated complaint: insect bit on R hand, swollen. arm/ hand numb Time Seen by Provider: 04/13/23 17:10 Source: patient Mode of arrival: ambulatory Limitations: no limitations History of Present Illness HPI narrative: Patient is a 62 year old assigned female at with a history of migraines and arthritis presenting to the emergency department today with right hand pain. Patient states that she woke up this morning with swelling to the top of her right hand and itching. Patient states that she believes she was bit by a bug. Patient denies any dizziness, lightheadedness, abdominal pain, nausea, vomiting, fever, chills, blurry vision, double vision, loss of vision, chest pain, difficulty breathing, shortness of breath, back pain, night sweats, pain with urination, increased urinary frequency, increased urinary urgency, blood in her urine or stool, syncope or a near syncopal episode, recent trauma or falls, bowel incontinence, bladder incontinence, bowel retention, bladder retention, or any other complaints at this time. Onset (ago): hour(s) Location: right and upper extremity Severity: mild Severity scale (1-10): 4 Quality: dull Pain Consistency: constant Relieving factors: none Exacerbating factors: none Associated symptoms: denies other symptoms Treatments prior to arrival: none Related Data Home Medications Medication Instructions Recorded Confirmed acetaminophen 650 mg 2 tab PO Q8H PRN pain 10/11/22 10/11/22 tablet,extended release docusate sodium 100 mg capsule 1 cap PO DAILY constipation 10/11/22 10/11/22 duloxetine 20 mg capsule,delayed 2 cap PO QAM 10/11/22 10/11/22 release lisinopril 40 mg tablet 1 tab PO DAILY 10/11/22 10/11/22 meloxicam 7.5 mg tablet 1 tab PO QAM 10/11/22 10/11/22 metoprolol succinate 25 mg 1 tab PO DAILY 10/11/22 10/11/22 tablet,extended release 24 hr multivitamin-ferrous 1 tab PO DAILY 10/11/22 10/11/22 fumarate-folic acid 18 mg-400 mcg tablet (Spectravite Adult) nitroglycerin 0.4 mg sublingual 1 tab sublingual Q5M angina 10/11/22 10/11/22 tablet sumatriptan succinate 25 mg tablet 25 mg PO DAILY PRN Migraine 10/11/22 10/11/22 Headache tizanidine 2 mg tablet 1 tab PO Q8H PRN Muscle Spasm 10/11/22 10/11/22 Previous Rx's Medication Instructions Recorded albuterol sulfate 90 mcg/actuation 2 puff inhalation Q4-6H PRN 08/03/20 aerosol inhaler (ProAir HFA) shortness of breath or wheezing 30 days #8.5 grams doxycycline monohydrate 100 mg 100 mg PO Q12H 10 days #20 caps 10/13/22 capsule ondansetron 4 mg disintegrating 4 mg PO Q8H PRN nausea and 10/13/22 tablet vomiting #10 tabs penicillin V potassium 250 mg 250 mg PO BID 30 days #60 tabs 12/01/22 tablet terbinafine HCl 1 % topical cream 1 appl topical BID 30 days #30 12/01/22 (Lamisil AT) grams cephalexin 500 mg capsule 500 mg PO Q6H 7 days #28 caps 04/13/23 prednisone 20 mg tablet 20 mg PO DAILY 7 days #7 tabs 04/13/23 Allergies Allergy/AdvReac Type Severity Reaction Status Date / Time buspirone [From BuSpar] Allergy Mild Tongue Verified 12/07/22 09:21 Swelling, dizziness ibuprofen [From Motrin] AdvReac Mild Rash, HTN Verified 12/07/22 09:21 Review of Systems Constitutional: Constitutional: Reports no additional constitutional complaints, Denies chills, Denies fever(s) and Denies night sweats Eyes: Eyes: Reports no additional eye complaints, Denies blurry vision, Denies change in vision, Denies diplopia, Denies eye discharge, Denies loss of vision and Denies eye pain ENT: Denies dizziness Cardiovascular: Cardiovascular: Reports no additional cardiovascular complaints, Denies chest pain, Denies lightheadedness, Denies Loss of Consciousness and Denies dyspnea Respiratory: Respiratory: Reports no additional respiratory complaints and Denies dyspnea Gastrointestinal: Gastrointestinal: Reports no additional gastrointestinal complaints, Denies abdominal pain, Denies melena, Denies hematochezia, Denies change in bowel habits and Denies change in stool character Genitourinary: Genitourinary: Denies hematuria, Denies urinary frequency, Denies dysuria, Denies urinary incontinence, Denies urinary hesitancy and Denies urinary urgency Musculoskeletal: Musculoskeletal: Reports no additional musculoskeletal complaints, Denies numbness and Denies tingling Integumentary/Breasts: Comments: right hand swelling, itching, pain Neurologic: Denies dizziness, Denies loss of vision, Denies numbness and Denies tingling Psychiatric: Psychiatric: Reports no additional psychiatric complaints Endocrine: Endocrine: Reports no additional endocrine complaints Hematologic/Lymphatic: Hematologic/Lymphatic: Reports no additional hematolog ic/lymphatic complaints Allergic/Immunologic: Allergic/Immunologic: Reports no additional allergic/immunologic complaints PMFSH Past Medical History Attestation statement: The following information was validated with the patient. Source: old records reviewed and nursing notes reviewed Medical History Anemia Anemia Arthritis Asthma Back pain with right-sided radiculopathy Breast pain Cervical cancer Chronic kidney disease, stage 3 Depression Dyspnea on exertion Fibromyalgia, primary History of cervical cancer HTN (hypertension) Hypertension Migraines Neurogenic bladder, NOS Recurrent cellulitis of lower extremity Surgical History H/O: hysterectomy Social History Social History Household Members: Family Housing: House Do you presently have visiting nurse or other home services: No Alcohol intake: unknown Patient Tobacco Use Status: Current everyday Tobacco user Tobacco use type: Cigarette Cigarettes Per Day: 4 Advance Directives: No Advance Directives Information Provided: Yes Advance Directives Date on File: 12/05/16 service: No Current occupational status: unemployed Physical Exam ED Vital Signs: Vital Signs - 24 hr 04/13/23 15:48 Temperature 98.3 F Pulse Rate 87 Respiratory Rate 16 Blood Pressure 147/94 H Pulse Oximetry 97 Oxygen Delivery Method Room Air BMI result Body Mass Index 31.9 Const General: cooperative, no acute distress, alert and awake Nutritional Appearance: well nourished Orientation/consciousness: patient oriented x3 Limitations: no limitations HENMT Head: Yes normal to inspection and Yes atraumatic Ears: hearing grossly normal bilaterally and external ears normal General nose exam: Normal external nose present, no nasal discharge noted and no epistaxis Face and sinus: Yes normal facial exam, No abrasion and No laceration Mouth: Normal oral and palatal mucosa present, no drooling and no muffled voice Eyes General: appearance normal, both eyes and all related structures Periorbital: periorbital findings normal Eyelids: Yes eyelids normal Conjunctivae: conjunctivae normal Pupils: Equal, round and reactive pupils present EOM: EOMs intact bilaterally Neck Neck: Yes normal visual inspection, Yes full ROM and Yes no lymphadenopathy Chest Chest palpation & inspection: normal inspection of the chest Resp Effort & Inspection: normal respiratory effort and able to speak in complete sentences GI Inspection: Yes normal to inspection Neuro General: patient oriented x3 and moves all extremities Cranial nerves: Yes Equal, round and reactive pupils present Cognition (Neuro): normal cognition Motor exam (neuro): 5/5 motor strength present throughout Sensory Exam: Normal double simultaneous stimulation for sensation Coordination: [id number] test normal Extrem Other: minimal swelling present to the dorsal right hand General: Yes full ROM and Yes capillary refill normal Psych Appearance: grossly normal Mental Status: mental status grossly normal Affect: normal affect Attitude: cooperative Thought process: Normal thought process present Thought content: Normal thought content present Insight: Good insight present (Psych) Course Course Course Narrative: This is a rapid medical exam: Additional HPI, ROS, PE not included below will be deferred to primary provider. Patient is a 62-year-old female presenting to the emergency department with complaint of swelling to right hand and rash to right arm. States she woke this morning with small red bump over 2nd MCP joint which she thought was an insect bite. State since then has progressed to swelling on dorsal aspect of R hand, as well as rash up right arm, and tingling to right arm. Did not take any OTC medications prior to arrival. States has two puppies at home but they were in a cage. Plan: loratadine Medications Administered Discontinued Medications Generic Name Dose Route Start Last Admin Trade Name Freq PRN Reason Stop Dose Admin Hydrocodone Bitart/Acetaminophen 1 tab 04/13/23 17:19 04/13/23 17:29 Hydrocodone Bit/Acetam 5/325 Tablet PO 04/13/23 17:20 1 tab ONCE ONE Administration Cephalexin HCl 500 mg 04/13/23 17:19 04/13/23 17:30 Cephalexin 500 Mg Capsule PO 04/13/23 17:20 500 mg ONCE ONE Administration Loratadine 10 mg 04/13/23 15:51 04/13/23 15:54 Loratadine 10 Mg Tablet PO 04/13/23 15:52 10 mg ONCE ONE Administration Lorazepam 1 mg 04/13/23 17:19 04/13/23 17:30 Lorazepam 1 Mg Tablet PO 04/13/23 17:20 1 mg ONCE ONE Administration Prednisone 20 mg 04/13/23 17:19 04/13/23 17:30 Prednisone 20 Mg Tablet PO 04/13/23 17:20 20 mg ONCE ONE Administration Medical Decision Making Medical Decision Making [facility] Narrative: Patient is a 62 year old assigned female at with a history of HTN, anemia, and CKD presenting to the emergency department today with right hand swelling. Patient's physical exam showed minimal dorsal swelling to the right hand but was otherwise unremarkable. I explained my physical exam findings to the patient. I answered all questions asked by the patient. I stressed the importance of the patient taking her medication as prescribed. I stressed the importance of the patient following up with her primary care provider. I stressed the importance of the patient returning to the emergency department immediately if her symptoms were to worsen or if she were to develop any dizziness, shortness of breath, difficulty breathing, chest pain, blurry vision, loss of vision, nausea, vomiting, abdominal pain, fever, chills, back pain, or any other complaints. Patient verbalized agreement and understanding with this treatment plan and discharge. Differential Diagnosis Differential Diagnoses: The differential diagnosis associated with the presentation includes Cellulitis Localized allergic reaction Prescription Management I considered prescription management with: Antibiotic (patient prescribed an antibiotic to cover for possible cellulitis) Chronic Conditions Patient?s care impacted by: Hypertension Discharge Plan Discharge Clinical Impression: Cellulitis Patient Disposition: Home, Self-Care Instructions: Cellulitis (DC) Additional Instructions: Follow up with your primary care provider. Return to the emergency department immediately if your symptoms worsen or if you develop any dizziness, shortness of breath, difficulty breathing, chest pain, blurry vision, loss of vision, nausea, vomiting, abdominal pain, fever, chills, back pain, or any other complaints. Prescriptions: New prednisone 20 mg tablet 20 mg PO DAILY 7 Days Qty: 7 0RF cephalexin 500 mg capsule 500 mg PO Q6H 7 Days Qty: 28 0RF No Action tizanidine 2 mg tablet 1 tab PO Q8H PRN (Reason: Muscle Spasm) sumatriptan succinate 25 mg tablet 25 mg PO DAILY PRN (Reason: Migraine Headache) meloxicam 7.5 mg tablet 1 tab PO QAM docusate sodium 100 mg capsule 1 cap PO DAILY metoprolol succinate 25 mg tablet extended release 24 hr 1 tab PO DAILY lisinopril 40 mg tablet 1 tab PO DAILY duloxetine 20 mg capsule,delayed release(DR/EC) 2 cap PO QAM Spectravite Adult 18-400 mg-mcg tablet 1 tab PO DAILY acetaminophen 650 mg tablet extended release 2 tab PO Q8H PRN (Reason: pain) nitroglycerin 0.4 mg tablet, sublingual 1 tab sublingual Q5M doxycycline monohydrate 100 mg Capsule 100 mg PO Q12H 10 Days Qty: 20 0RF ondansetron 4 mg tablet,disintegrating 4 mg PO Q8H PRN (Reason: nausea and vomiting) Qty: 10 0RF albuterol sulfate [ProAir HFA] 90 mcg/actuation HFA aerosol inhaler 2 puff inhalation Q4-6H PRN (Reason: shortness of breath or wheezing) 30 Days Qty: 8.5 3RF terbinafine HCl [Lamisil AT] 1 % cream 1 appl topical BID 30 Days Qty: 30 1RF penicillin V potassium 250 mg tablet 250 mg PO BID 30 Days Qty: 60 5RF Referrals: Lilly Cowart MD [Primary Care Provider] - Stand Alone Forms: Work/School Release Interventions: ED Discharge Assessment Last Done: 04/13/23 17:38 Discharge Date/Time: 04/13/23 17:38 Print Language: Nicaraguan
[2023-04-13] MEDS: Loratadine 10 MG TABLET PO (15:54)
--- OUTSIDE RECORDS SUMMARY | 2023-04-13 16:14 | XMS_ITS | Continuity of Care Document ---
Author Name Unknown Organization [facility] Address [address] [place] [id number]- Care Team Providers Care Cashier Name Role Phone Rolf Zhang MD Primary Care Physician [place] [facility] [place]23 [facility] [address] [place] [id number] Attending Physician: Admtr, Ar8 Admitting Physician: Admtr, Ar8 Referring Physician: Admtr, Ar8 Allergies, Adverse Reactions, Alerts Substance Reaction Severity Status busPIRone unclear Active Zomig Active Motrin Zomig Buspirone Active Immunizations Given and Recorded Vaccine Date Status Refusal Reason SARS-CoV-2 (COVID-19) mRNA BNT-162b2 vac 09/30/21 Recorded SARS-CoV-2 (COVID-19) mRNA BNT-162b2 vac 09/08/21 Recorded tetanus/diphtheria/pertussis, acel(Tdap) 03/21/17 Recorded tetanus/diphtheria/pertussis, acel(Tdap) 06/27/12 Recorded influenza virus vaccine, inactivated 12/03/16 Sergio rded influenza virus vaccine, inactivated 07/13/16 Sergio rded influenza virus vaccine, inactivated 07/30/15 Sergio rded influenza virus vaccine, inactivated 11/23/14 Sergio rded influenza virus vaccine, inactivated 06/22/11 Sergio rded influenza virus vaccine, inactivated 05/24/10 Sergio rded influenza virus vaccine, inactivated 06/30/08 Sergio rded influenza virus vaccine, inactivated 07/08/02 Sergio rded pneumococcal 23-valent vaccine 10/01/13 Recorded pneumococcal 23-valent vaccine 10/30/12 Recorded tetanus-diphtheria toxoids (Td) 06/30/08 Recorded tetanus-diphtheria toxoids (Td) 11/14/96 Recorded diphtheria/tetanus/pertussis, acel(DTaP) 06/30/08 Recorded Medications acetaminophen 325 mg oral tablet 650 mg, By Mouth, Every 6 hours, May take OTC not to exceed 3000 mg/day, Refills 0, Maintenance, 12/11/20 9:49:00 EDT, Partial fill upon patient request if the prescription is for a schedule II opioid drug. Start Date: 12/11/20 Status: Ordered Advair 250 mcg-50 mcg Inhaler 1 puff, Inhalation, 2 times a day, Maintenance, 10/02/13 22:03:54 Start Date: 10/02/13 Status: Ordered Albuterol 90 mcg Inhaler 2, puffs, Inhalation, Every 4 hours, PRN, Maintenance, 10/04/13 11:14:21 Start Date: 10/04/13 Status: Ordered Claritin 10 mg oral tablet 1 tablet = 10 mg, By Mouth, Daily, # 30 tablet, 0 Refills, Maintenance, Tablet Start Date: 10/02/13 Status: Ordered Colace Capsule 100 mg, 1, capsule, By Mouth, 2 times a day, Refills 0, Maintenance, 12/11/20 9:49:00 EDT, Partial fill upon patient request if the prescription is for a schedule II opioid drug. Start Date: 12/11/20 Status: Ordered Compression Stockings See Instructions, # 2 each, Maintenance, surgical, knee length 20-30 mm Hg Dx: right leg swelling, 05/17/20 13:49:00 EDT, Supply Start Date: 05/17/20 Status: Ordered Lisinopril = 5 mg, By Mouth, Daily, 0 Refills, Maintenance, 12/10/20 7:40:00 EDT, Partial fill upon patient request if the prescription is for a schedule II opioid drug. Start Date: 12/10/20 Status: Ordered Lymphedema Therapy Lymphedema Therapy, See Instructions, # 1 each, Refills 0, Tot. Refills 0, Maintenance, Please evaluate and treat for Lymphedema Bilateral DX: Lymphedema, 05/25/20 14:51:00 EDT, Compound Start Date: 05/25/20 Status: Ordered Metamucil 3.4 gm/5.2 gm oral powder for reconstitution = 1.7 Gm, By Mouth, Daily, # 1,042 Gm, 0 Refills, Maintenance, 02/08/23 9:17:00 EDT, REC Powder, [facility]/pharmacy #[id number], Partial fill upon patient request if the prescription is for a schedule II opioid drug., 162, cm, 02/08/23 8:02:00 EDT, Height, 87.4,... Start Date: 02/08/23 Status: Ordered MiraLax oral powder for reconstitution = 17 Gm, By Mouth, Daily, PRN Constipation, dissolve in water before taking, # 255 Gm, 0 Refills, Maintenance, 02/08/23 9:25:00 EDT, REC Powder, [facility]/pharmacy #[id number], Partial fill upon patient request if the prescription is for a schedule II opioid drug... Start Date: 02/08/23 Status: Ordered penicillin V potassium 250 mg oral tablet 1 tablet = 250 mg, By Mouth, 2 times a day, # 60 tablet, 2 Refills, Maintenance, 03/15/23 17:02:00 EDT, Tablet, [facility], Partial fill upon patient request if the prescription is for a schedule II opioid drug., 162, cm, 02/08/23... Start Date: 03/15/23 Status: Ordered penicillin V potassium 250 mg oral tablet 1 tablet = 250 mg, By Mouth, 2 times a day, # 60 tablet, 0 Refills, Maintenance, 02/11/23 9:21:00 EDT, Tablet, [facility]/pharmacy #[id number], Partial fill upon patient request if the prescription is for a schedule II opioid drug., 162, cm, 02/08/23 8:02:00 EDT,... Start Date: 02/11/23 Status: Ordered Physical therapy prescription Physical therapy prescription, See Instructions, # 1 each, Refills 0, Tot. Refills 0, Maintenance, ICD-10 code: L03. 11 Cellulitis of lower limb PT for 3 times a week for 6 weeks, 02/08/23 9:49:00 EDT, Supply Start Date: 02/08/23 Status: Ordered PriLOSEC OTC 20 mg oral delayed release tablet 1 tablet = 20 mg, By Mouth, Daily, 0 Refills, Maintenance Start Date: 10/02/13 Status: Ordered tiZANidine 2 mg oral tablet 2 mg, By Mouth, 3 times a day, PRN, # 30 tablet, Refills 0, Tot. Refills 0, Maintenance, Spasm, 11/12/22 11:26:00 EST, Route to Pharmacy Electronically, [facility]/pharmacy #[id number], Partial fill upon patient request if the prescription is for a schedule II opi... Start Date: 11/12/22 Stop Date: 11/26/22 Status: Ordered Problem List Condition Confirmation Course Effective Dates Status H ealth Status Informant Anemia Confirmed Active Asthma Confirmed Active Pain of back and right lower extremity Confirmed Active Back pain with right-sided radiculopathy Confirmed Active Chronic kidney disease stage 3 Confirmed Active Depression Confirmed Active Hypertension Confirmed Active Hypertension Confirmed Active Cervical cancer 1 Confirmed Active Neurogenic Bladder Nos Confirmed Active Obese class I Confirmed Active Breast pain Confirmed Active 1status post hysterectomy 1995 Social History Social History Type Response Tobacco Use: 4 or less cigar ettes(less than 1/4 pack)/day in last 30 days. Sex Patient Care team information Care Team Personnel Name: Nanci Omalley RN Position: S RN Member Role: Primary Care Nurse Name: Rolf Zhang MD Position: S Outreach Member Role: PCP Address: Address: [address] [place] [address] [place] [id number]- Name: Juan C Wells RN Position: S RN Member Role: Primary Care Nurse Name: Lilly Nick RN Position: [facility] OB RN Member Role: Primary Care Nurse Name: Kenzie Bran RN Position: S RN Member Role: Primary Care Nurse Address: Address: [address] [place] [id number]- Care Team Related Persons Name: IRVIN CRAFT Address: [address] [address]
--- OUTSIDE RECORDS SUMMARY | 2023-04-13 16:14 | XMS_ITS | Continuity of Care Document ---
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 Role Phone Rolf Zhang MD Primary Care Physician [phone] Encounter [facility] [place] Date(s): 02/04/23 - 02/08/[address] [id number] Encounter Diagnosis Cellulitis(Final) - 02/04/23 Discharge Disposition: A-D/C Home Attending Physician: Severino Sung MD Admitting Physician: Dalia Rossi MD Referring Physician: Not on Staff, Referring [...] 10/04/13 11:14:21 Start Date: 10/04/13 Status: Ordered cephalexin monohydrate 500 mg oral tablet 1 tablet = 500 mg, By Mouth, 4 times a day, for 4 days, # 15 tablet, 0 Refills, Acute 02/12/23 9:19:00 EDT, 02/08/23 9:19:00 EDT, Tablet, [facility]/pharmacy #[id number], Partial fill upon patient request if the prescription is for a schedule II opioid drug., 162,... Start Date: 02/08/23 Stop Date: 02/12/23 Status: Ordered Claritin 10 mg oral tablet [...] EDT, Supply Start Date: 05/17/20 Status: Ordered Dilaudid 2 mg oral tablet 2 mg, Tablet, By Mouth, Every 4 hours, PRN for Pain , Moderate, Routine, 02/04/23 22:37:00 EDT Start Date: 02/04/23 Stop Date: 02/08/23 Status: Discontinued Lisinopril = 5 mg, By Mouth, Daily, 0 Refills, Maintenance, 12/10/20 7:40:00 EDT, Partial fill upon patient request if the prescription is for a schedule II opioid drug. Start Date: 12/10/20 Status: Ordered lisinopril 5 mg oral tablet 5 mg, Tablet, By Mouth, 02/08/23 9:00:00 EDT Start Date: 02/08/23 Stop Date: 02/08/23 Status: Completed Lymphedema Therapy Lymphedema Therapy, See Instructions, # 1 each, Refills 0, Tot. Refills 0, Maintenance, Please evaluate and treat for Lymphedema Bilateral DX: Lymphedema, 05/25/20 14:51:00 EDT, Compound Start Date: 05/25/20 Status: Ordered Metamucil 3.4 gm/5.2 gm oral powder for reconstitution = 1.7 Gm, By Mouth, Daily, # 1,042 Gm, 0 Refills, Maintenance, 02/08/23 9:17:00 EDT, REC Powder, [facility]pharm[facility] #[id number], Partial fill upon patient request if the prescription is for a schedule II opioid drug., 162, cm, 02/08/23 8:02:00 EDT, Height, 87.4,... Start Date: 02/08/23 Status: Ordered MiraLax oral powder for reconstitution = 17 Gm, By Mouth, Daily, PRN Constipation, dissolve in water before taking, # 255 Gm, 0 Refills, Maintenance, 02/08/23 9:25:00 EDT, REC Powder, [id number], Partial fill upon patient request if the prescription is for a schedule II opioid drug... Start Date: 02/08/23 Status: Ordered oxyCODONE 5 mg oral capsule See Instructions, PRN as needed for pain, 1 capsule by mouth every 6 - 8 hours as needed for severepain, please try to taper by taking at increasingly longer intervals to prevent withdrawal, # 12 capsule, 0 Refills, Acute 02/12/23 9:26:00 EDT, ... Start Date: 02/08/23 Stop Date: 02/12/23 Status: Ordered penicillin V potassium 250 mg oral tablet 1 tablet = 250 mg, By Mouth, 2 times a day, # 60 tablet, 0 Refills, Maintenance, 02/11/23 9:21:00 EDT, Tablet, [facility]/pharmacy #[id number], Partial fill upon patient request if [...] 11:26:00 EST, Route to Pharmacy Electronically, [facility]/pharmacy #[id number], Partial fill upon patient request if [...] pain Confirmed Active 1status post hysterectomy 1995 Results Orders for Microbiology Reports Name Date Blood Culture 02/04/23 Blood Culture #2 02/04/23 Microbiology Reports TEST:Blood Culture STATUS:Unauthenticated BODY SITE: SOURCE:Blood COLLECTED DATE/TIME:02/04/23 8:01 PM Blood Culture SPECIMEN DESCRIPTION : BLOOD RAC SPECIAL REQUESTS : NONE CULTURE : NO GROWTH 4 DAYS REPORT STATUS : PRELIMINARY REPORT TEST:Blood Culture, Second Order STATUS:Unauthenticated BODY SITE: SOURCE:Blood COLLECTED DATE/TIME:02/04/23 8:01 PM Blood Culture, Second Order SPECIMEN DESCRIPTION : BLOOD LAC SPECIAL REQUESTS : NONE CULTURE : NO GROWTH 4 DAYS REPORT STATUS : PRELIMINARY REPORT Radiology Reports * Exam Date Time Procedure Performing Provider Status 02/07/23 8:12 PM US Doppler Ext Lower Venous Right Teresa Nino; Auth (Verified) Notes: (US Doppler Ext Lower Venous Right) Reason For Exam: Pain/Tenderness Extremities RESULT: US Doppler Ext Lower Venous Right US Doppler Ext Lower Venous Right Reason: Pain Tenderness Extremities; Clinical Question(s): Thrombus; Order Comment: 02 07 2023 13:49:33 EDT - Per Rn, patient just got some bad news. Had an appt to come for ultrasound for 2:45, however per RN, patient is going to need a few hours. NWC. MAT COMPARISON: None IMAGING TECHNIQUE: Ultrasound of the veins from the groin through the calf was performed using grayscale, color, and spectral Doppler ultrasound assessing for complete compressibility and normal flowcharacteristics. FINDINGS: Common femoral vein: Patent. No thrombosis. Femoral vein: Patent. No thrombosis. Popliteal vein: Patent. No thrombosis. Gastrocnemius veins: The visualized portions are patent without evidence of thrombosis. Peroneal veins: The visualized portions are patent without evidence of thrombosis. Posterior tibial veins: The visualized portions are patent without evidence of thrombosis. Contralateral common femoral vein: Patent. No thrombosis. OTHER FINDINGS: There is diffuse calf edema. IMPRESSION: No evidence of deep venous thrombosis. WSN: [id number] Ordering Physician: Ermelinda Figueredo Dictated By: Yuriy Haskins MD Dictated Date/Time: 02/07/23 9:06 pm Reviewed By: Yuriy Haskins MD Signed By: Yuriy Haskins MD Signed Date/Time: 02/07/23 9:06 pm Transcribed By: WILTON Transcribed Date/Time: 02/07/23 9:05 pm * Exam Date Time Procedure Performing Provider Status 02/07/23 8:40 AM Knee 1 or 2 Views Right Kari Garvin; Auth (Verified) Notes: (Knee 1 or 2 Views Right) Reason For Exam: Pain RESULT: Knee 1 or 2 Views Right Right knee, 2 views Reason: Pain; Clinical Question(s): Other:; effusion COMPARISON: 10/24/2022 FINDINGS: Stable hardware. No periprostatic fracture. Normal alignment. No evidence of joint effusion. IMPRESSION: No acute abnormality. WSN: [id number] Ordering Physician: Ermelinda Figueredo Dictated By: Baldo Mena MD Dictated Date/Time: 02/07/23 9:57 am Reviewed By: Baldo Mena MD Signed By: Baldo Mena MD Signed Date/Time: 02/07/23 9:57 am Transcribed By: WILTON Transcribed Date/Time: 02/07/23 9:52 am * Exam Date Time Procedure Performing Provider Status 02/04/23 8:[address] Ext Lower W/ Contrast Right Oren Dexter; Shoshana (Verified) Notes: (CT Ext Lower W/ Contrast Right) Reason For Exam: Infection RESULT: CT Ext Lower W/ Contrast Right CT Ext Lower W/ Contrast Right Hx of Present Illness: coming from home rightg lower leg swelling, redness, warm to touch. Knee surgery in November, painful urination and abdominal pain as well, self catheteizes self regularly. TECHNIQUE: Helical CT with contrast formatted in 3 planes. 100 cc of Omnipaque 300 was administeredintravenously. Weight-based protocol using automatic tube modulation was used to optimize exposure parameters. CTDIvol Body: 5.40 mGy, DLP Body: 592 mGy*cm. COMPARISONS: None FINDINGS: Bones and joints: Knee arthroplasty changes without evidence of hardware loosening, periprostatic fracture, or other complications. No fracture or dislocation is present. No erosions, productive changes or abnormal calcifications are noted. Soft Tissues: Diffuse soft tissue swelling and skin thickening extending from the ankle joint anteriorly, medially and laterally and superiorly to the anterior aspect of the mid tibia. No evidence ofnecrotizing fasciitis or abscess formation. IMPRESSION: No osseous abnormalities. Findings consistent with cellulitis of the distal lower leg reaching the skin overlying the ankle joint. No evidence of necrotizing fasciitis or abscess formation. I have personally reviewed the images and I agree with this report. WSN: [id number] Ordering Physician: Barbara Taveras Dictated By: Andrae Jean MD Dictated Date/Time: 02/04/23 8:45 pm Reviewed By: Alfred Lange MD Signed By: Alfred Lange MD Signed Date/Time: 02/04/23 8:50 pm Transcribed By: WILTON Transcribed Date/Time: 02/04/23 8:39 pm Vital Signs Most recent to oldest [Reference Range]: 1 2 3 Height 162 cm (02/08/23 8:02 AM) 162 cm (02/07/23 4:59 AM) 162 cm (02/06/23 11:58 PM) Weight 87.1 kg (02/08/23 5:52 AM) 87.4 kg (02/05/23 1:03 AM) 86.7 kg (02/05/23 12:50 AM) Oxygen Saturation [94-100 %] 96 % (02/08/23 8:02 AM) 99 % (02/08/23 3:04 AM) 98 % (02/07/23 11:15 PM) Pulse Rate [55-90 bpm] 70 bpm (02/08/23 8:02 AM) 61 bpm (02/08/23 3:04 AM) 88 bpm (02/07/23 11:15 PM) Body Mass Index [18.5-24.99 kg/m2] 33.3 kg/m2 *>HHI* (02/05/23 1:03 AM) Blood Pressure [90-138/55-84 mm Hg] 163/81mm Hg *H* (02/08/23 8:12 AM) 163/81mm Hg *H* (02/08/23 8:02 AM) 115/62mm Hg (02/08/23 3:04 AM) Respiratory Rate [16-30 br/min] 18 br/min (02/08/23 8:02 AM) 18 br/min (02/08/23 3:04 AM) 18 br/min (02/08/23 2:27 AM) Temperature [96.8-100.4 DegF] 98.5 DegF (02/08/23 8:02 AM) 98.8 DegF (02/08/23 3:04 AM) 98.5 DegF (02/07/23 11:15 PM) Mode of Delivery (Oxygen) Room air (02/08/23 8:02 AM) Room air (02/08/23 3:04 AM) Room air (02/07/23 11:15 PM) Blood pressure sites Arm, right (02/08/23 8:02 AM) Arm, right (02/08/23 3:04 AM) Arm, right (02/07/23 11:15 PM) Temperature Route Oral (02/08/23 8:02 AM) Oral (02/08/23 3:04 AM) Oral (02/07/23 11:15 PM) Dry Weight 87.4 kg (02/05/23 1:03 AM) Weight Obtained Via Bed scale (02/08/23 5:52 AM) Social History Social History Type Response Tobacco Use: 4 or less cigar ettes(less than 1/4 pack)/day in last 30 days. Sex History and physical note * Dalia Rossi MD: SIGN, PERFORM, MODIFY, MODIFY, VERIFY Event Display: History and Physical Hospital Authored Date: Patient: JUSTEN QUINTANILLA Age: 62 years Sex: Female : 1960 Associated Diagnoses: None Author: Dalia Rossi MD Visit Information Chief Complaint: R leg in its entirety pain swelling and erythema. History of Present Illness The pt is a 62 yo F w pmhx of Lymphedema treatment and previous cellulitis in the R leg and lower leg before, Asthma, chronic LBP w R sided radiculopathy, CKD 3, Htn, Depression, Neurogenic bladder, GERD/Constipation. She was at her usual state of health until Sunday night when she noticed her Right leg and lower leg were hurting. By the morning of Sunday, she had erythema, swelling and now erythema from groin down with some spared spots in the right upper leg and mid foot to distal. She presented. She was diagnosed with Cellulitis and this time with sepsis given presence of fever, tachycardia, and elevated wbc.In ED she received Tylenol, IV Vanc and Zosyn, IV MS 4 mg x 2 and reports someimprovement. Past Medical History Problem list All Problems (Selected) Anemia / SNOMED CT 492142596 / Confirmed Asthma / SNOMED CT 393584534 / Confirmed Back pain with right-sided radiculopathy / SNOMED CT 815602073 / Confirmed Breast pain / SNOMED CT 153422595 / Confirmed Cervical cancer / SNOMED CT 952028995 / Confirmed status post hysterectomy 1996 Chronic kidney disease stage 3 / SNOMED CT 1869432462 / Confirmed Depression / SNOMED CT 02727737 / Confirmed Hypertension / SNOMED CT 9660970560 / Confirmed Neurogenic Bladder Nos / ICD-9-CM 596.54 / Confirmed Obese class I / SNOMED CT 911623708547472 / Confirmed Pain of back and right lower extremity / SNOMED CT 350854455 / Confirmed Allergies Allergic Reactions (Selected) Severity Not Documented BusPIRone- Unclear. Motrin- Buspirone and zomig. Zomig- No reactions were documented. Current medications (Selected) Inpatient Medications Ordered Acetaminophen Supp: 650 mg, Suppository, Rectally, Every 4 hours, PRN for Pain , Mild, Temperature Greater than 100.5, Routine, 02/04/23 22:30:00 EDT Acetaminophen Tablet: 650 mg, Tablet, By Mouth, Every 4 hours, PRN for Pain , Mild, Temperature Greater than 100.5, Routine, 02/04/23 22:30:00 EDT Claritin 10 mg oral tablet: 10 mg, Tablet, By Mouth, Daily, Routine, 02/05/23 9:00:00 EDT Dilaudid 2 mg oral tablet: 2 mg, Tablet, By Mouth, Every 4 hours, PRN for Pain , Moderate, Routine,02/04/23 22:37:00 EDT Dilaudid Inj: 0.5 mg, Injection, IV Push Slowly, Every 4 hours, PRN for Pain , Severe, Routine, 02/04/23 22:37:00 EDT Docusate/Senna Tablet: 1 tablet, Tablet, By Mouth, 2 times a day, PRN for Constipation, Routine, 02/04/23 22:30:00 EDT Duoneb Inhalation Solution: 1 vials, Inhalation Solution, BAND Nebulizer, 4 times a day, Routine, 02/05/23 9:00:00 EDT Duoneb Inhalation Solution: 1 vials, Inhalation Solution, BAND Nebulizer, Every 4 hours, PRN for Wheezing/Shortness of Breath, Routine, 02/04/23 22:33:00 EDT Melatonin Tablet: 3 mg, Tablet, By Mouth, Daily at bedtime, PRN for Insomnia, Routine, 02/04/23 22:30:00 EDT MiraLax Powder: 17 Gm, Powder, By Mouth, Daily for 14 days, Dissolve in 8 ounces of water., PRN forConstipation, Routine, 02/04/23 22:30:00 EDT, Stop date 02/18/23 22:29:00 EDT NaCL 0.9% Flush: 3 mL, Injection, IV Push, Every 8 hours, PRN for Line/Tube Patency, Routine, 02/04/23 22:30:00 EDT NaCL 0.9% Flush: 3 mL, Injection, IV Push, Every 8 hours, Routine, 02/04/23 23:00:00 EDT Ondansetron Inj: 4 mg, Injection, IV Push, Every 4 hours, PRN for Nausea & Vomiting, Routine, 02/04/23 22:30:00 EDT Robitussin DM Liquid: 10 mL, Syrup, By Mouth, Every 4 hours, PRN for Cough, Routine, 02/04/23 22:30:00 EDT Simethicone Tablet: 80 mg, Chew Tablet, Chew, 3 times a day, PRN for Gas, Routine, 02/04/23 22:30:00 EDT Vancomycin IVPB: 1,000 mg, IVPB, Injection, Every 24 hours for 7 days, Infuse over 60 to 90 minutes, Indicated for: Cellulitis Purulent, Routine, 02/05/23 9:00:00 EDT, Stop date 02/12/23 8:59:00 EDT Zosyn Extended IVPB: 3.375 Gm, IVPB, Injection, Every 12 hours, Infuse over 4 hours., Indicated for: Cellulitis Purulent, Routine, 02/05/23 5:00:00 EDT pantoprazole 20 mg oral delayed release tablet: 20 mg, EC Tablet, By Mouth, Daily, Indicated for: Continuation from Home, Routine, 02/05/23 9:00:00 EDT tiZANidine 4 mg oral tablet: 2 mg, Tablet, By Mouth, 3 times a day, PRN for Spasm, Routine, 02/04/23 22:32:00 EDT Prescriptions Prescribed Compression Stockings: See Instructions, # 2 each, Maintenance, surgical, knee length 20-30 mm Hg Dx: right leg swelling, 05/17/20 13:49:00 EDT, Supply Lymphedema Therapy: Lymphedema Therapy, See Instructions, # 1 each, Refills 0, Tot. Refills 0, Maintenance, Please evaluate and treat for Lymphedema Bilateral DX: Lymphedema, 05/25/20 14:51:00 EDT, Compound tiZANidine 2 mg oral tablet: 2 mg, By Mouth, 3 times a day, PRN, # 30 tablet, Refills 0, Tot. Refills 0, Maintenance, Spasm, 11/12/22 11:26:00 EST, Route to Pharmacy Electronically, [facility]/pharmacy #[id number], Partial fill upon patient request if the prescription is for a schedule II opi... Documented Medications Documented Advair 250 mcg-50 mcg Inhaler: 1 puff, Inhalation, 2 times a day, Maintenance, 10/02/13 22:03:54 Albuterol 90 mcg Inhaler: 2, puffs, Inhalation, Every 4 hours, PRN, Maintenance, 10/04/13 11:14:21 Claritin 10 mg oral tablet: 1 tablet = 10 mg, By Mouth, Daily, # 30 tablet, 0 Refills, Maintenance,Tablet Colace Capsule: 100 mg, 1, capsule, By Mouth, 2 times a day, Refills 0, Maintenance, 12/11/20 9:49:00 EDT, Partial fill upon patient request if the prescription is for a schedule II opioid drug. Lisinopril: = 5 mg, By Mouth, Daily, 0 Refills, Maintenance, 12/10/20 7:40:00 EDT, Partial fill upon patient request if the prescription is for a schedule II opioid drug. PriLOSEC OTC 20 mg oral delayed release tablet: 1 tablet = 20 mg, By Mouth, Daily, 0 Refills, Maintenance acetaminophen 325 mg oral tablet: 650 mg, By Mouth, Every 6 hours, May take OTC not to exceed 3000 mg/day, Refills 0, Maintenance, 12/11/20 9:49:00 EDT, Partial fill upon patient request if the prescription is for a schedule II opioid drug. Surgical History Arthroplasty of knee Hysterectomy and unilateral salpingo-oophorectomy sample Social History Social History Alcohol Details: Use: Never. Employment/School Details: Status: Disabled. Exercise Details: Other: Regular exercise. Home/Environment Details: Living situation: Home/Independent. Lives with: Alone. Other: . Nutrition/Health Details: Other: One to 2 cups of coffee per day. Substance Abuse Details: Use: Never. Tobacco Details: Use: 4 or less cigarettes(less than 1/4 pack)/day in last 30 days. Details: Never smoker Electronic Cigarette/Vaping Details: Electronic Cigarette Use: Never. . Family History Asthma; Brain tumor 23-JAN-2015 22:20:40<$>; CAD - Coronary artery disease; Cancer of breast Review of Systems Significant Constitutional, Eye, Skin, Head/Neck, ENMT, Respiratory, Cardio, Gastrointestinal, Breast, Gynecologic, Genitourinary, Endocrine, Muscoloskeletal, Immunologic, Hematologic, Lymphatic, Neurologic, Psych reviewed and negative except as noted above. Physical Examination Vital Signs Vitals : VITALS 02/05/2023 0:00 EDT Temperature 99.1 DegF Temperature Route Oral Pulse Rate 95 bpm H Respiratory Rate 18 br/min Systolic Blood Pressure 117 mm Hg Diastolic Blood Pressure 58 mm Hg Blood pressure sites Arm, left Pulse Pressure 59 mm Hg Oxygen Saturation 100 % Mode of Delivery (Oxygen) Room air 02/04/2023 23:06 EDT Temperature 99.0 DegF 02/04/2023 21:21 EDT Temperature 100.5 DegF H 02/04/2023 19:45 EDT Temperature 100.9 DegF H 02/04/2023 19:31 EDT Temperature 99.9 DegF . Weight : Weight lb/oz 02/05/2023 1:03 EDT Weight lb/oz 192 lb 11 oz 02/05/2023 0:50 EDT Weight lb/oz 191 lb 2 oz . BMI : Body Mass Index 12/12/2022 13:28 EDT Body Mass Index 31.31 kg/m2 >HHI . Height : Height 12/12/2022 13:28 EDT Height 163 cm . General Appearance: No apparent distress, Overweight. HEENT Head: Normocephalic, Atraumatic. Eyes: EOMI, PERRL. Neck: Supple, No lymphadenopathy, Thyroid normal. Cardiovascular Cardiac: PMI Non displaced, RRR, No M/G/R. Respiratory Respiratory: CTA, no wheezes, no crackles. Abdomen/GI Non-distended. Normal bowel sounds. Soft non-tender. No hepatosplenomegaly. No Herniae present. Extremities Edema. R leg and lower leg in entirety. No clubbing. No cyanosis. Vascular Dorsalis pedis pulse right: Normal. Dorsalis pedis pulse left: Normal. Derm Skin: No rash. No crepitus anywhere along the R thigh, leg, lower leg. Neurologic Neuro Exam: CN 2-12 normal. Motor Exam: Motor strength WNL. Reflex Exam: Babinski absent. Sensory Exam: WNL, Painful in R leg. Psychiatric Appearance WNL. Speech WNL. Thought processes WNL. Depressed. Results Review 7 day results Labs & Documents Laboratory : LABORATORY 02/04/2023 20:44 EDT Appear/Color, Urine YELLOW Specific [place], Urine 1.042 H pH, Urine 5.5 Albumin, Urine TRACE Glucose, Urine NEGATIVE Ketones, Urine NEGATIVE Bilirubin, Urine NEGATIVE Hemoglobin, Urine NEGATIVE Nitrite, Urine NEGATIVE Leukocyte, Urine NEGATIVE Urobilinogen NORMAL mg/dL WBC's, Urine 2 /HPF RBC's, Urine 2 /HPF Squamous Epith 1 /HPF Hold Urine Culture Testing available 48 hours from time of collection. 02/04/2023 20:19 EDT COVID-19 by RT-PCR NEGATIVE 02/04/2023 20:01 EDT WBC 14.3 k/mm3 H RBC 4.22 m/mm3 Hgb 10.5 Gm/dL L Hct 33.8 % L MCV 80.1 femtoliters MCH 24.9 pg L MCHC 31.1 g/dL L Platelet Count 218 k/mm3 RDW-SD 48.8 femtoliters H MPV 11.4 femtoliters Nucleated RBC (Automated) 0.0 #/100 WBC'S Abs. NRBC 0.0 k/mm3 Abs. Neut 12.7 k/mm3 H Abs. Lymph 1.2 k/mm3 Abs. [place] 0.3 k/mm3 L Abs. Eo 0.0 k/mm3 Abs. Baso 0.0 k/mm3 Neut % 88.9 % H Lymph % 8.2 % L [place] % 2.4 % L Eos % 0.0 % Baso % 0.2 % Imm Gran 0.3 % Abs. Imm Gran 0.0 k/mm3 Sed Rate 123 mm/hr H Hold Blue Top SPECIMEN DISCARDED AFTER 4 HOURS. Sodium 140 mmol/L Potassium 3.7 mmol/L Chloride 105 mmol/L Bicarbonate Level 22 mmol/L Anion Gap 13 Glucose Level 88 mg/dL BUN 32 mg/dL H Creatinine-Blood 1.2 mg/dL H Estimated GFR Creatinine 53 ML/MIN/1.73 M2 Calcium 9.2 mg/dL Calcium, Ionized pH Corrected 1.23 mmol/L Magnesium 1.9 mg/dL Protein, Total 6.6 Gm/dL Albumin 4.1 Gm/dL AG Ratio 1.6 Alkaline Phosphatase 79 units/L Lipase 24 units/L AST (SGOT) 48 units/L H ALT (SGPT) 57 units/L H Bilirubin, Total 0.3 mg/dL Lactate 1.0 mmol/L C-Reactive Protein 31.8 mg/dL H CK, Total 57 units/L Hold Green Top SPECIMEN DISCARDED AFTER 1 WEEK Imaging : RADIOLOGY 02/04/2023 20:[address] Ext Lower W/ Contrast Right CT Ext Lower W/ Contrast Right IMPRESSION: CT Ext Right No osseous abnormalities. Findings consistent with cellulitis of the distal lower leg reaching the skin overlying the ankle joint. No evidence of necrotizing fasciitis or abscess formation. Impression and Plan Sepsis Cellulitis, non purulent Right thigh and lower leg, some spared parts in R lat thigh and foot from mid to distal foot Lymphedema Chronic LBP with R radiculopathy Neurogenic Bladder Plan -Admit to medicine -Tele -Cont with Vanc and Zosyn -Elevate RLE -Symptomatic treatment -Supportive treatment -PRN Tizanidine -Bowel regimen HTN h/o CKD 3 Plan -Monitor BP trend -Holding Lisinopril -Start low dose amlodipine as BP climbs -PRN Hydralazine for elevated BP -Monitor renal function and lytes Asthma Plan -Bronchodilators scheduled and prn GERD Constipation Plan -Bowel regimen -PPI Quality Measures Dvt, high risk, chemical Cardiac diet Full code Cardiology * Event Display: Cardiac Rhythm Strips Authored Date: Hospital Progress note * Yasmin Harmon RN: PERFORM, SIGN, VERIFY Event Display: Progress Note Hospital Authored Date: Patient: JUSTEN QUINTANILLA Age: 62 years Sex: Female : 1960 Associated Diagnoses: None Author: Yasmin Harmon RN Findings Problem Related to Alteration in Integumentary : Alteration in Integumentary/new 02/08/2023 1:00 EDT Alteration in Integumentary Related to Cellulitis Goals & Outcomes, Integumentary Pt will maintain intact skin integrity Interventions, Integumentary Encourage & assist with range of motion exercises Goals/Interventions, Integumentary Yes Integumentary, Problem Start 02/05/2023 5:50 Reviewed plan with, Integumentary Patient Patient Progression, Integumentary Pt progressing according to plan . Nursing Data Vital Signs : VITAL SIGNS SECTION 02/07/2023 23:15 EDT Temperature 98.5 DegF Temperature Route Oral Pulse Rate 88 bpm Respiratory Rate 18 br/min Systolic Blood Pressure 123 mm Hg Diastolic Blood Pressure 69 mm Hg Blood pressure sites Arm, right Pulse Pressure 54 mm Hg Oxygen Saturation 98 % Mode of Delivery (Oxygen) Room air 02/07/2023 19:26 EDT Temperature 98.6 DegF Temperature Route Oral Pulse Rate 81 bpm Respiratory Rate 16 br/min Systolic Blood Pressure 103 mm Hg Diastolic Blood Pressure 66 mm Hg Blood pressure sites Arm, right Pulse Pressure 37 mm Hg Oxygen Saturation 98 % Mode of Delivery (Oxygen) Room air . Evaluation Assumed care at 1900 pt a/ox4, pt continues to be NSR on tele. Pt right leg +2 edema, redness and warm to touch. Guido draining adequate output. Pt complains of right leg pain PRN pain Meds given. Ptresting in bed safety measures maintained, call ott in reach, will continue to monitor.. Discharge Information Rehabilitation Discharge : Rehab Discharge Index 02/07/2023 8:41 EDT Comments on treatment indicated 62 y/o female p/w right lower extremity swellingand pain. Admitted for cellulitis. See for gait, stairs, therex and balance. Rec home with services. Walker: distance 20-50 Distance pt will ambulate ~100' with RW and good balance Full chart review completed Yes Plan of care PT Gait training, Transfer training, Therapeutic exercise, Functional Activities, Balance training * Sudarshan MCARTHUR, Lilly Coronado: MODIFY, PERFORM Event Display: Progress Note Hospital Authored Date: Patient: ??JUSTEN QUINTANILLA ? Age:??62 Years?Sex:??Female?:??1960?? Chief Complaint/Reason for Consultation lower leg swelling History of Present Illness Reason for Follow-up: RLE cellulitis ?? Interval History: Today on exam the patient has been afebrile, hemodynamically stable, without a leukocytosis (WBC 7.9). Antibiotics de-escalated to cefazolin and patient is tolerating well, continues to clinically improved with decreased erythema/edema/tenderness and able to fully bend the right knee. Blood cultures with NGTD x 72 hours.??X-ray of the right knee was completed to evaluate for effusion, no evidence. ?? Antimicrobials: ?? Cefazolin 2g IV Q8 (02/06-present) Piperacillin/tazobactam IV (02/04-present) Vancomycin IV (02/04-present) ?? Prior antimicrobials: Penicillin VK 250mg PO BID (no longer taking) Amoxicillin/clavulanate 875/125mg PO BID (11/22-12/01) Doxycycline 100mg PO BID (10/13-10/23) Cephalexin 500mg PO TID (09/04-09/14) Review of Systems Denies fever, chills, rigors, night sweats, headache, chest pain, shortness of breath, cough, abdominal pain, nausea, vomiting, diarrhea, dysuria, arthralgias, or rash. ?? Objective Vital Signs?? Temperature: 98.4 DegF (02/07/23 07:00:00) Temperature Route: Oral (02/07/23 07:00:00) Pulse Rate: 77 bpm (02/07/23 07:00:00) Respiratory Rate: 16 br/min (02/07/23 09:08:00) Systolic Blood Pressure: 127 mm Hg (02/07/23 07:00:00) Diastolic Blood Pressure: 68 mm Hg (02/07/23 07:00:00) Blood pressure sites: Arm, right (02/07/23 07:00:00) Mean Arterial Pressure: 95 mm Hg (02/07/23 04:59:00) Pulse Pressure: 59 mm Hg (02/07/23 07:00:00) Oxygen Saturation: 97 % (02/07/23 07:00:00) Mode of Delivery (Oxygen): Room air (02/07/23 07:00:00) Early Warning Score: 0 (02/07/23 08:16:19) ? Physical Exam Physical Exam GENERAL: In no acute distress, lying in bed HEENT: Anicteric, no subconjunctival petechiae, moist oral mucosa without lesions or thrush NECK: Neck supple, without cervical lymphadenopathy CARDIOVASCULAR: Regular rate and rhythm. Not able to appreciate any murmurs, rubs, or gallops.??RLEwith moderate??peripheral edema. RESPIRATORY: Lungs??clear to auscultation, breathing comfortably on room air GASTROINTESTINAL: Non-distended, normoactive bowel sounds, non-tender GENITOURINARY: No CVAT or suprapubic tenderness, has Guido catheter draining c/y/u MUSCULOSKELETAL: Without joint effusions, no tenderness over spine. Able to fully bend the right knee SKIN: No diffuse rash present, no stigmata of infective endocarditis, no open wounds. RLE with improved edema, erythema, warmth, extending from the right ankle up to the right thigh NEUROLOGICAL/PSYCH: A&Ox2-3, grossly intact LINES: PIVs without erythema/edema/tenderness, dressings clean/dry/intact? Microbiology/ID Work-up: ?? Blood: 02/04/23: Blood cultures- NGTD x 72 hours ?? Imagin02/07/23: X-ray right knee- FINDINGS: Stable hardware. No periprostatic fracture. Normal alignment. No evidence of joint effusion. ?? 02/04/23: CT RLE- IMPRESSION: No osseous abnormalities. Findings consistent with cellulitis of the distal lower leg reaching the skin overlying the ankle joint. No evidence of necrotizing fasciitisor abscess formation. ?? 12/28/22: CT RLE- IMPRESSION: Periprosthetic infection/septic arthritis cannot be entirely excluded with imaging however, there is no evidence of peripherally enhancing subcutaneous or intramuscular abscess collection about the right knee. Anterior soft tissue swelling which may represent edema or cellulitis. Right knee arthroplasty hardware is in expected alignment without demonstrable periprosthetic fracture or aggressive osteolysis Assessment/Plan Diagnoses Recurrent cellulitis of lower extremity ??(L03.119) ?? Assessment:??Patient is a 62-year-old female with a past medical history significant for right TKA (2020), CKD stage III, cervical cancer s/p hysterectomy resultant neurogenic bladder requiring intermittent straight catheterization who was admitted on 02/04 for recurrent RLE cellulitis on imaging. Currently on empiric therapy with clinical improvement, and ID has been consulted for antibiotic assistance. Most likely cause of the patient's symptoms is a recurrent RLE Strep cellulitis, as the abrupt onset and exam most closely resembles this. She previously received cephalexin with improvement, and did not improve much on doxycycline, which has poorer strep coverage.??She continues to improve on cefazolin, so would continue this while inpatient and can??de- escalate to oral cephalexin on discharge.??She would benefit from a Vascular evaluation to ensure there are no issues with blood flow, and meanwhile can consider suppressive antibiotics with ID follow-up to help decrease recurrences. ?? Recommendations: ? Continue cefazolin 2g IV every 8 hours while inpatient ??? On discharge, can transition to cephalexin 500mg PO 4 times daily to complete total 7 day course (end 02/11) ??? After completing the cephalexin would start suppressive antibiotics with penicillin vk 250mg POBID, will coordinate ID follow-up ??? Follow blood cultures ??? Vascular studies/evaluation ?ID will sign off, please reach back out with any??questions/concerns of recurrent or new infection. ?Lilly Heaton, GUILLERMO, TRIM SETTER- ??[facility] Infectious Disease ?Discussed with Dr. Vasquez ??Recommendations communicated with Dr. Figueredo via phone and cortext. ?? (This note was dictated using the [employer] software and any typographical/grammatical errors were notdeliberate) ?? Histories Allergies Allergies ?(Active and Proposed Allergies Only) busPIRone? (Severity: Unknown severity, Onset: Unknown) ?Reactions: unclear Zomig? (Severity: Unknown severity, Onset: Unknown) Motrin? (Severity: Unknown severity, Onset: Unknown) ?Reactions: Buspirone, Zomig ? Past Medical History/Problem List Active Problems??(12) Anemia Asthma Back pain with right-sided radiculopathy Breast pain Cervical cancer Chronic kidney disease stage 3 Depression Hypertension Hypertension Neurogenic Bladder Nos Obese class I Pain of back and right lower extremity ? Past Surgical History Arthroplasty of knee Hysterectomy and unilateral salpingo-oophorectomy sample ? Social History Alcohol Details:??Use: Never. Employment/School Details:??Status: Disabled. Exercise Details:??Other: Regular exercise. Home/Environment Details:??Living situation: Home/Independent. ??Lives with: Alone. ??Other: . Nutrition/Health Details:??Other: One to 2 cups of coffee per day. Substance Abuse Details:??Use: Never. Tobacco Details:??Use: 4 or less cigarettes(less than 1/4 pack)/day in last 30 days. Details:??Never smoker Electronic Cigarette/Vaping Details:??Electronic Cigarette Use: Never. ? Family History Other: Asthma; Brain tumor ? 23-JAN-2015 22:20:40<$>; CAD - Coronary artery disease; Cancer of breast ? Medications Home Medications Acetaminophen (acetaminophen 325 mg oral tablet)?650?Milligram?By Mouth?Every 6 hours?May take OTC not to exceed 3000 mg/day Albuterol (Albuterol 90 mcg Inhaler)?2?puff(s)?Inhalation?Every 4 hours?as needed?Wheezing/Shortness of Breath Docusate (Colace Capsule)?100?Milligram?1?capsule?By Mouth?2 times a day Durable Medical Equipment (Compression Stockings)?See Instructions?surgical, knee length 20-30 mm HgDx: right leg swelling Fluticasone-Salmeterol (Advair 250 mcg-50 mcg Inhaler)?1 puff?Inhalation?2 times a day Lisinopril?5?Milligram?By Mouth?Daily Loratadine (Claritin 10 mg oral tablet)?1?tab(s)?10?Milligram?By Mouth?Daily Miscellaneous Rx (Lymphedema Therapy)?See Instructions?Please evaluate and treat for Lymphedema Bilateral DX: Lymphedema Omeprazole (PriLOSEC OTC 20 mg oral delayed release tablet)?1?tab(s)?20?Milligram?ByMouth?Daily Tizanidine (tiZANidine 2 mg oral tablet)?2?Milligram?By Mouth?3 times a day?as needed?for 14?Days?Spasm ? Inpatient Medications Medications (20) Active SCHEDULED: (6) Albuterol/Ipratropium Inhalation Thea 3mL (Duoneb Inhalation Solution) ??1 vials, BAND Nebulizer, 4 times a day CeFAZolin 2 Gm Inj (ceFAZolin Inj) ??2 Gm, IV Push Slowly, Every 8 hours Enoxaparin 40 mg Inj (Enoxaparin Inj) ??40 mg 0.4 mL, Subcutaneous Injection, Daily Loratadine 10 mg Tablet (Claritin 10 mg oral tablet) ??10 mg, By Mouth, Daily NaCl 0.9% Flush 3ml (NaCL 0.9% Flush) ??3 mL, IV Push, Every 8 hours Pantoprazole 20 mg EC Tablet (pantoprazole 20 mg oral delayed release tablet) ??20 mg, By Mouth, Daily CONTINUOUS: (0) PRN: (14) Acetaminophen 325 mg Tablet (Acetaminophen Tablet) ??650 mg, By Mouth, Every 4 hours Acetaminophen 650 mg Suppository (Acetaminophen Supp) ??650 mg, Rectally, Every 4 hours Albuterol/Ipratropium Inhalation Thea 3mL (Duoneb Inhalation Solution) ??1 vials, BAND Nebulizer, Every 4 hours Bisacodyl 10 mg Suppository (Bisacodyl Supp) ??10 mg 1 supp, Rectally, Daily Dextromethorphan-Guaifenesin 20 mg-200 mg/10 mL Liqu UD (Robitussin DM Liquid) ??10 mL, By Mouth, Every 4 hours hydrALAZINE 20 mg/mL Inj (hydrALAZINE Inj) ??5 mg 0.25 mL, IV Push Slowly, Every 4 hours HYDROmorphone 2 mg Tablet (Dilaudid 2 mg oral tablet) ??2 mg, By Mouth, Every 4 hours Melatonin 3 mg Tablet (Melatonin Tablet) ??3 mg, By Mouth, Daily at bedtime NaCl 0.9% Flush 3ml (NaCL 0.9% Flush) ??3 mL, IV Push, Every 8 hours Ondansetron 2mg/mL Inj (2mL Vial) (Ondansetron Inj) ??4 mg, IV Push, Every 4 hours Polyethylene Glycol 17 Gm Powder (MiraLax Powder) ??17 Gm 1 pack/packet, By Mouth, Daily Senna 8.6 mg / Docusate 50 mg tablet (Docusate/Senna Tablet) ??1 tablet, By Mouth, 2 times a day Simethicone 80 mg Chewable Tablet (Simethicone Tablet) ??80 mg, Chew, 3 times a day Tizanidine 4 mg Tablet (tiZANidine 4 mg oral tablet) ??2 mg, By Mouth, 3 times a day ? 72 Hour Antibiotic History Active Antibiotics Calendar Day Last Administered First Administered ceFAZolin??2 Gm, IV Push Slowly, Every 8 hours ?2 02/07/2023 08:08 02/06/2023 16:26 ? Stopped Antibiotics Stop Date/Time Last Administered First Administered Piperacillin-Tazobactam??3.375 Gm, 25 mL/hr, IVPB, Every 8 hours 02/06/2023 15:16 02/06/2023 12:07 02/05/2023 04:51 Vancomycin??1,250 mg, 250 mL/hr, IVPB, Every 24 hours 02/06/2023 15:16 02/05/2023 21:33 02/05/2023 21:33 Vancomycin??1 Gm, 200 mL, 200 mL/hr, IVPB, Once 02/04/2023 21:28 02/04/2023 21:23 02/04/2023 21:23 Piperacillin-Tazobactam??3.375 Gm, 200 mL/hr, IVPB, Once 02/04/2023 20:42 02/04/2023 20:33 02/04/2023 20:33 ? Vaccinations and Immunoprophylaxis diphtheria/tetanus/pertussis, acel(DTaP): 0.5 Unknown (06/30/08 08:00:00) influenza virus vaccine, inactivated: 0.5 Unknown (12/03/16 08:00:00) influenza virus vaccine, inactivated: 0.5 Unknown (07/13/16 08:00:00) influenza virus vaccine, inactivated: 0.5 Unknown (07/30/15 07:00:00) influenza virus vaccine, inactivated: 0.5 Unknown (11/23/14 08:00:00) influenza virus vaccine, inactivated: 0.5 Unknown (06/22/11 08:00:00) influenza virus vaccine, inactivated: 0.5 Unknown (05/24/10 08:00:00) influenza virus vaccine, inactivated: 0.5 Unknown (06/30/08 08:00:00) influenza virus vaccine, inactivated: 0.5 Unknown (07/08/02 08:00:00) pneumococcal 23-valent vaccine: 0.5 Unknown (10/01/13 07:00:00) pneumococcal 23-valent vaccine: 0.5 Unknown (10/30/12 07:00:00) SARS-CoV-2 (COVID-19) mRNA BNT-162b2 vac: 0.3 Unknown (09/30/21 07:00:00) SARS-CoV-2 (COVID-19) mRNA BNT-162b2 vac: 0.3 Unknown (09/08/21 07:00:00) tetanus/diphtheria/pertussis, acel(Tdap): 0.5 Unknown (03/21/17 08:00:00) tetanus/diphtheria/pertussis, acel(Tdap): 0.5 Unknown (06/27/12 08:00:00) tetanus-diphtheria toxoids (Td): 0.5 Unknown (06/30/08 08:00:00) tetanus-diphtheria toxoids (Td): 0.5 Unknown (11/14/96 07:00:00) ?? Results Recent Labs BLOOD COUNT & DIFF WBC 7.9 k/mm3 ()?? 02/07/2023 00:01 RBC 3.65 m/mm3 (Low)?? 02/07/2023 00:01 Hgb 9.2 Gm/dL (Low)?? 02/07/2023 00:01 Hct 29.6 % (Low)?? 02/07/2023 00:01 MCV 81.1 femtoliters ()?? 02/07/2023 00:01 MCH 25.2 pg (Low)?? 02/07/2023 00:01 MCHC 31.1 g/dL (Low)?? 02/07/2023 00:01 Platelet Count 152 k/mm3 ()?? 02/07/2023 00:01 RDW-SD 50.2 femtoliters (High)?? 02/07/2023 00:01 MPV 11.2 femtoliters ()?? 02/07/2023 00:01 Nucleated RBC (Automated) 0.0 #/100 WBC'S ()?? 02/07/2023 00:01 Abs. NRBC 0.0 k/mm3 ()?? 02/07/2023 00:01 Abs. Neut 3.9 k/mm3 ()?? 02/07/2023 00:01 Abs. Lymph 3.4 k/mm3 (High)?? 02/07/2023 00:01 Abs. [place] 0.5 k/mm3 ()?? 02/07/2023 00:01 Abs. Eo 0.1 k/mm3 ()?? 02/07/2023 00:01 Abs. Baso 0.0 k/mm3 ()?? 02/07/2023 00:01 Neut % 48.9 % ()?? 02/07/2023 00:01 Lymph % 43.5 % (High)?? 02/07/2023 00:01 [place] % 5.9 % ()?? 02/07/2023 00:01 Eos % 0.9 % ()?? 02/07/2023 00:01 Baso % 0.3 % ()?? 02/07/2023 00:01 Imm Gran 0.5 % ()?? 02/07/2023 00:01 Abs. Imm Gran 0.0 k/mm3 ()?? 02/07/2023 00:01 ?? CHEM GENERAL Sodium 138 mmol/L ()?? 02/07/2023 00:01 Potassium 3.9 mmol/L ()?? 02/07/2023 00:01 Chloride 104 mmol/L ()?? 02/07/2023 00:01 Bicarbonate Level 24 mmol/L ()?? 02/07/2023 00:01 Anion Gap 10 ()?? 02/07/2023 00:01 Glucose Level 127 mg/dL (High)?? 02/07/2023 00:01 BUN 13 mg/dL ()?? 02/07/2023 00:01 Creatinine-Blood 0.8 mg/dL ()?? 02/07/2023 00:01 Estimated GFR Creatinine 83 ML/MIN/1.73 M2 ()?? 02/07/2023 00:01 Magnesium 2.2 mg/dL ()?? 02/07/2023 00:01 ?? URINE OTHER Est Creatinine Clearance 63.98 mL/min ()?? 02/06/2023 05:06 ? Urinalysis?? No qualifying data available. ?? Microbiology ?? COVID-19 (Novel Coronavirus), Rapid PCR?? Completed?? Source: Nasal Body Site: Nose Collected Dt/Tm: 02/04/2023 19:58 Last Updated Dt/Tm: 02/04/2023 21:12 ? * Ermelinda Figueredo MD: MODIFY, MODIFY, MODIFY, MODIFY, MODIFY, MODIFY, MODIFY, PERFORM, MODIFY, MODIFY Event Display: Progress Note Hospital Authored Date: Patient: ??JUSTEN QUINTANILLA ? Age:??62 Years?Sex:??Female?:??1960?? Subjective Overnight: KODAK ?? Subjective: Patient reported having pain in her R leg and behind her R knee. She said her last BM was prior to coming to the hospital. Review of Systems A full review of systems was completed and is otherwise negative except as mentioned above. Objective ?? Physical Exam General: sitting comfortably, alert, in no acute distress HEENT: EOMI, PERRLA, moist oral mucosa Cardiovascular: RRR; S1 and S2 audible with no murmurs, rubs or gallops; no JVD appreciated Respiratory: Clear to auscultation. No wheezing, rales or rhonchi. GI: soft, non-tender, non-distended abdomen with normal bowel sounds Neuro: AAO x3, Speech: normal, no facial droop, moving all 4 extremities Psychiatric: Normal mood and affect?? Musculoskeletal: RLE swelling, tenderness and warmth without erythema. popiteal tenderness and tenderness around the patella Assessment/Plan Justen is a 62 year??female with h/o??right total knee replacement, hypertension, asthma, neurogenicbladder??managed with??intermit straight cath, who??presented to the emergency department with concern for right lower extremity swelling and pain.??She wad admitted for management of recurrent non-purulent lower extremity??cellulitis ?? Cellulitis, non purulent Patient presented with RLE swelling and pain. work up significant for leukocytosis and elevated inflammatory markers CT RLE with findings consistent with cellulitis of the distal lower leg reaching the skin overlyingthe ankle joint. No evidence of necrotizing fasciitis or abscess formation. No evidence of knee effusion on knee x-ray ?? Initially treated with Vanc and Zosyn (02/04-) , switched to cefazolin on 02/06 Plan: - RLE US to rule out DVT - continue cefazolin - ID on board, recs appreciated? Chronic LBP with R radiculopathy Neurogenic Bladder Plan - PRN Tizanidine - D/c IV dilaudid?? - 2 mg PO dilaudid q4 hours PRN for moderate pain ?? Constipation Plan - daily metamucil and miralax - PRN bisacodyl ?? Chronic, Stable or Resolved Conditions: GERD: substitute pantoprazole for omeprazole while inpatient?? H/O Asthma:??Substitute breo-ellipta for advair while inpatient. PRN duonebs for wheezing/SOB Hypertension: Continue??Lisinopril Acute??kidney injury -??resolved Chronic normocytic anemia: F/U with PCP ?? Quality Measures DVT prophylaxis: Lovenox Diet: Cardiac Code Status: Full ?? Patient care discussed with attending, ??Ana Lilia. ?? Ermelinda Figueredo MD Internal Medicine PGY-2 Pager # [phone] Note * Alayna Oh RN: PERFORM Event Display: Discharge/Transfer Note Hospital Authored Date: [id number] Nursing Discharge Note Entered On: 02/08/2023 10:58 EDT Performed On: 02/08/2023 10:58 EDT by Alayna Oh RN Nursing Discharge Note 2 Discharge Time : 02/08/2023 10:55 EDT Discharge Level of Care at Discharge : Home/Longterm/Foster Care Patient Left Unit Via : Wheelchair Patient Accompanied Off Unit with : Responsible adult DC Instructions Provided & Signed by Pt : Yes Patient Understands D/C Instructions : Yes Verbalized Understanding of D/C Plan By : Patient Patient Instructions Discharge Signed : Yes Did Pt have Specialty Bed or Wound Vac : No Alayna Oh RN - 02/08/2023 10:58 EDT * Alayna Oh RN: PERFORM Event Display: Patient Education/Instruction Authored Date: [id number] Inpatient Adult Discharge Instructions [address] [address] Name: JUSTEN QUINTANILLA : 1960 Visit: 02/04/2023 22:00:00 Current Date: 02/08/2023 10:37 Account: [id number] Inpatient Adult Discharge Instructions We would like to thank you for allowing us to assist you with your healthcare needs. The following includes patient education materials and information regarding your injury/illness. Our entire staffstrives to provide an excellent experience for our patients and their families. PLEASE ENSURE YOU FOLLOW-UP PER THE INSTRUCTIONS BELOW! ?? YOUR OPINION IS IMPORTANT TO US! Please complete the survey you may receive by mail or email. Your feedback will be used to make improvements to the healthcare experiences of our patients and their families. Surveys are administered by [employer] ?? If further treatment with your primary care physician or another doctor is recommended, it is important for you to keep the appointment. Call your primary care physician or return to the Emergency Department immediately if your condition worsens, fails to improve, or new symptoms develop. If you need to find a doctor, you can call [facility] [employer] for a referral at [phone] or toll free at [phone]) or log in to [email or web address] ?? You can view and manage your care through the patient portal or by using a health care shahbaz of your choosing. [facility] is a website that allows you to securely view your medical information including your hospital discharge summary, office visit summaries, medications and follow-up visits. You can also request appointments, renew medications, and request access to your medical information using a health care shahbaz of your choosing, or just ask a question. You can enroll at [email or web address] or register during your next office visit. You have been discharged from [facility], Patient Care Unit: W4. If you have any questions regarding these instructions after you leave, please call us and we will be happy to assist you. [facility] Your Care Team Attending Physician Ana Lilia STOUT, Severino Consulting Providers Christina STOUT, Umesh Discharging Providers Terell STOUT, Ermelinda Reason for Your Visit lower leg swelling Your Diagnosis Leg pain-swelling Recurrent cellulitis of lower extremity Tests Performed Below is a partial list of the tests performed during your hospitalization. You may have had other tests and procedures not included in this list. Please discuss all test results with your provider. Basic Metabolic Panel BUN Calcium Ionized CBC CBC w/ Differential Comprehensive Metabolic Panel COVID-19 (Novel Coronavirus), Rapid PCR CPK Total Only Creatinine CRP Electrolytes ESR Glucose Level Hold Blue Top Tube HOLD GREEN TUBE Lactate Level Lipase Magnesium Level Urinalysis w/hold for Urine Culture Knee 1 or 2 Views Right Lower Extremity CT W/ Contrast Right Venous Doppler Ext Lower Right (US) Primary Care Provider Rolf Zhang MD Advance Directive . Discharge Vitals Temperature: 98.5 DegF Height: 162 cm Pulse Rate: 70 bpm Weight: 87.1 kg Respiratory Rate: 18 br/min Body Mass Index:??33.3 kg/m2??Critical Systolic Blood Pressure:??163 mm Hg??High Body surface area: 1.98 Diastolic Blood Pressure: 81 mm Hg ?? Oxygen Saturation: 96 % ?? Studies Pending All tests and labs ordered during this hospital stay have been completed unless listed below. Please discuss all pending results with your provider listed above in these instructions. ?? Blood Culture Blood Culture #2 Hold Lavender Tube (BB) What to do next Instructions From Your Doctor You were admitted for an infection of your right leg.?? You were treated with IV antibiotics and are being transitioned to oral antibiotics on discharge.?? After you finish your antibiotic course fortreatment of cellulitis on 11 February, you will be placed on long-term antibiotics as recommended by the infectious disease team.?? Please call your PCP to set up follow-up appointment.?? Should also foll ow-up with infectious disease in 2 to 4 weeks, and will be called regarding this appointment.?? Discharge Orders You Need to Schedule the Following Appointments Follow Up with??Sudarshan MCARTHUR, Lilly Coronado Why: Infectious disease. The office will call you to schedule a follow up Follow Up with??Rolf Zhang MD When:??Within 1-2 day: call to discuss follow up visit Where: [address] [facility] [place] [address]- Discharge Medications JUSTEN QUINTANILLA :1960 Visit Date:02/04/2023 Medications: Please continue your medications until treatment is completed or stopped by your provider. Medications not listed below should be discontinued. Discuss any questions related to medications with your provider. What How Much When Instructions Next Dose New Cephalexin (cephalexin monohydrate 500 mg oral tablet) 1 tab(s) Oral 4 times a day Duration: 4 Days Pickup at [facility]/pharmacy #[id number] 02/08?? 3 PM New Miscellaneous Rx (Physical therapy prescription) See instructions ICD-10 code: L03. 11 Cellulitis of lower limb PT for 3 times a week for 6 weeks ?? Printed Prescription New Oxycodone (oxyCODONE 5 mg oral capsule) See instructions 1 capsule by mouth every 6 - 8 hours as needed for severe pain, please try to taper by taking at increasingly longer intervals to prevent withdrawal, As needed for as needed for pain ?? Pickup at [facility]/pharmacy #[id number] as prescribed New penicillin V potassium (penicillin V potassium 250 mg oral tablet) 1 tab(s) Oral Twice a day Pickup at [facility]/pharmacy #[id number] as prescribed New Polyethylene Glycol 3350 (MiraLax oral powder for reconstitution) 17 gram Oral Daily as needed for Constipation dissolve in water before taking ?? Pickup at [facility]/pharmacy #02/09?? AM New Psyllium (Metamucil 3.4 gm/ 5.2 gm oral powder for reconstitution) 1.7 gram Oral Daily Pickup at [facility]/pharmacy #02/09?? AM Unchanged Acetaminophen (acetaminophen 325 mg oral tablet) 650 Milligram Oral Every 6 hours May take OTC not to exceed 3000 mg/ day ?? 02/08?? 2?? PM if needed Unchanged Albuterol (Albuterol 90 mcg Inhaler) 2 puff(s) Inhalation Every 4 hours as needed for Wheezing/Shortness of Breath as prescribed Unchanged Docusate (Colace Capsule) 100 Milligram Oral Twice a day as prescribed Unchanged Durable Medical Equipment (Compression Stockings) See instructions surgical, knee length 20-30 mm Hg Dx: right leg swelling ?? Unchanged Fluticasone-Salmeterol (Advair 250 mcg-50 mcg Inhaler) 1 puff Inhalation Twice a day 02/08?? PM Unchanged Lisinopril 5 Milligram Oral Daily 02/09?? AM Unchanged Loratadine (Claritin 10 mg oral tablet) 1 tab(s) Oral Daily 02/09?? AM Unchanged Miscellaneous Rx (Lymphedema Therapy) See instructions Please evaluate and treat for Lymphedema Bilateral DX: Lymphedema ?? Unchanged Omeprazole (PriLOSEC OTC 20 mg oral delayed release tablet) 1 tab(s) Oral Daily 02/09?? AM Unchanged Tizanidine (tiZANidine 2 mg oral tablet) 2 Milligram Oral 3 times a day as needed for Spasm Duration: 14 Days as prescribed Pharmacy Information [facility]/pharmacy #[id number]: [address], [place] [id number] [phone] Test Results Below is a partial list of the most recent Laboratory test results done prior to this discharge. You may have had other tests and procedures not included in this list. Please discuss all test resultswith your provider. Est Creatinine Clearance - 73.12 mL/min (02/08/2023) Basic Metabolic Panel (02/08/2023) ???Sodium - 140 mmol/L???Potassium - 4.1 mmol/L???Chloride - 104 mmol/L???Bicarbonate Level - 25 mmol/L???Anion Gap - 11???Glucose Level - 84 mg/dL???BUN - 14 mg/dL???Creatinine-Blood - 0.7 mg/dL???Estimated GFR Creatinine - 96 ML/MIN/1.73 M2???Calcium - 9.2 mg/dL BUN (02/07/2023) ???BUN - 13 mg/dL Calcium Ionized (02/04/2023) ???Calcium, Ionized pH Corrected - 1.23 mmol/L CBC (02/05/2023) ???WBC - 9.6 k/mm3???RBC - 3.69 m/mm3???Hgb - 9.3 Gm/dL???Hct - 29.5 %???MCV - 79.9 femtoliters???MCH - 25.2 pg???MCHC - 31.5 g/dL???Platelet Count - 161 k/mm3???RDW-SD - 49.0 femtoliters???MPV - 10.9 femtoliters???Nucleated RBC (Automated) - 0.0 #/100 WBC'S???Abs. NRBC - 0.0 k/mm3 CBC w/ Differential (02/07/2023) ???WBC - 7.9 k/mm3???RBC - 3.65 m/mm3???Hgb - 9.2 Gm/dL???Hct - 29.6 %???MCV - 81.1 femtoliters???MCH - 25.2 pg???MCHC - 31.1 g/dL???Platelet Count - 152 k/mm3???RDW-SD - 50.2 femtoliters???MPV - 11.2 femtoliters???Nucleated RBC (Automated) - 0.0 #/100 WBC'S???Abs. NRBC - 0.0 k/mm3???Abs. Neut - 3.9 k/mm3???Abs. Lymph - 3.4 k/mm3???Abs. [place] - 0.5 k/mm3???Abs. Eo - 0.1 k/mm3???Abs. Baso - 0.0 k/mm3???Neut % - 48.9 %???Lymph % - 43.5 %???[place] % - 5.9 %???Eos % - 0.9 %???Baso % - 0.3 %???Imm Gran- 0.5 %???Abs. Imm Gran - 0.0 k/mm3 Comprehensive Metabolic Panel (02/05/2023) ???Sodium - 136 mmol/L???Potassium - 4.1 mmol/L???Chloride - 104 mmol/L???Bicarbonate Level - 19 mmol/L???Anion Gap - 13???Glucose Level - 144 mg/dL???BUN - 20 mg/dL???Creatinine-Blood - 0.9 mg/dL???Estimated GFR Creatinine - 71 ML/MIN/1.73 M2???Calcium - 8.8 mg/dL???Protein, Total - 5.8 Gm/dL???Albumin - 3.5 Gm/dL???AG Ratio - 1.5???Alkaline Phosphatase - 66 units/L???AST (SGOT) - 45 units/L???ALT (SGPT) - 58 units/L???Bilirubin, Total - 0.3 mg/dL COVID-19 (Novel Coronavirus), Rapid PCR (02/04/2023) ???COVID-19 by RT-PCR - NEGATIVE CPK Total Only (02/04/2023) ???CK, Total - 57 units/L Creatinine (02/07/2023) ???Creatinine-Blood - 0.8 mg/dL???Estimated GFR Creatinine - 83 ML/MIN/1.73 M2 CRP (02/04/2023) ???C-Reactive Protein - 31.8 mg/dL Electrolytes (02/07/2023) ???Sodium - 138 mmol/L???Potassium - 3.9 mmol/L???Chloride - 104 mmol/L???Bicarbonate Level - 24 mmol/L???Anion Gap - 10 ESR (02/04/2023) ???Sed Rate - 123 mm/hr Glucose Level (02/07/2023) ???Glucose Level - 127 mg/dL Hold Blue Top Tube (02/04/2023) ???Hold Blue Top - SPECIMEN DISCARDED AFTER 4 HOURS. HOLD GREEN TUBE (02/04/2023) ???Hold Green Top - SPECIMEN DISCARDED AFTER 1 WEEK Lactate Level (02/04/2023) ???Lactate - 1.0 mmol/L Lipase (02/04/2023) ???Lipase - 24 units/L Magnesium Level (02/08/2023) ???Magnesium - 2.0 mg/dL Urinalysis w/hold for Urine Culture (02/04/2023) ???Appear/Color, Urine - YELLOW???Specific [place], Urine - 1.042???pH, Urine - 5.5???Albumin, Urine - TRACE???Glucose, Urine - NEGATIVE???Ketones, Urine - NEGATIVE???Bilirubin, Urine - NEGATIVE???Hemoglobin, Urine - NEGATIVE???Nitrite, Urine - NEGATIVE???Leukocyte, Urine - NEGATIVE???Urobilinogen - NORMAL???WBC's, Urine - 2 /HPF???RBC's, Urine - 2 /HPF???Squamous Epith - 1 /HPF???Hold Urine Culture - Testing available 48 hours from time of collection. Allergies (NKA means No Known Allergies) Motrin??(Zomig, Buspirone) Zomig busPIRone??(unclear) Problems Active Problems??(12) Anemia?? Asthma?? Back pain with right-sided radiculopathy?? Breast pain?? Cervical cancer?? Chronic kidney disease stage 3?? Depression?? Hypertension?? Hypertension?? Neurogenic Bladder Nos?? Obese class I?? Pain of back and right lower extremity?? Education Materials Below is the list of Educational Leaflet Providered with your Discharge Instructions. Cellulitis?? Cephalexin Oral Tablet?? Valuables and Belongings I fully understand and agree that [facility] accepts no responsibility for all my personal property including clothing, toilet articles, radios, jewelry, dentures, hearing aids, rings, money, or any other property that is in my possession or is brought to me after admission. I understand certain valuables may be placed in a hospital safe for a short period of time. I understand that the hospital is not liable for loss or damage due to accident, fire, or other natural occurrence while said property is in the safe. I accept full responsibility for any personal property that I keep with me, and will not hold the hospital responsible in case of loss or disappearance. I acknowledge that i have been encouraged to send valuables and belongings home. ?? Review of Valuable and Belonging List: With patient Possessions released to: No ??Medical ??Advices Date for Pt to Sign Valuables/Belongings: 02/07/23 12:23:00 ?? Other Discharge Information ? Case Management Discharge Plan?? Discharge Plan?? Discharge Level of Care at Discharge: Home/Longterm/Foster Care ?? Pulmonary Rehab Status?? Pulmonary Rehab Discharge Status?? Respiratory Rate: 18 br/min ? Common Emergency Awareness Tips IS IT A STROKE? Act FAST and Check for these signs: FACE Does the face look uneven? ARM Does one arm drift down? SPEECH Does their speech sound strange? TIME Call at any sign of stroke ?? Heart Attack Signs Chest discomfort: Most heart attacks involve discomfort in the center of the chest and lasts more than a few minutes, or goes away and comes back. It can feel like uncomfortable pressure, squeezing, fullness or pain. Discomfort in upper body: Symptoms can include pain or discomfort in one or both arms, back, neck, jaw or stomach. Shortness of breath: With or without discomfort. Other signs: Breaking out in a cold sweat, nausea, or lightheaded. Remember, MINUTES DO MATTER. If you experience any of these heart attack warning signs, call to get immediate medical attention! ?? Smoking can increase your chances of developing chronic health problems and can cause harmful effects to other family members in your house. If you smoke, you are strongly encouraged to quit. Please call [facility] at [phone] or [phone] ([phone]) or log in to [email or web address] for referrals to smoking cessation programs. ?? 534 Suicide & Crisis Lifeline is available 09/04 if you or someone you know needs to find a reason to keep living. By calling 110 you'll be connected to a skilled, trained counselor at a crisis center in your area. INPATIENT DISCHARGE INSTRUCTIONS SIGNATURE JUSTEN RAYMUNDO Location:[facility] Registration Date and Time:02/04/2023 22:00 EDT Primary Care Physician: Vicente STOUT, Rolf, Attending Physician: Severino Sung MD, I JUSTEN QUINTANILLA, have received the above patient education materials/instructions and have verbalizedunderstanding. If ambulance or transport services are being used I further acknowledge being given a choice of service. ?? If you need to contact me, please call me at this number: . Patient/Housekeeping Worker Name: Patient/Housekeeping Worker Signature: Relationship to Patient: Witness Name/Signature: Date: * Ermelinda Figueredo MD: PERFORM Event Display: Patient Education Leaflets Authored Date: [id number] Cellulitis ?? [id number] Cellulitis Cellulitis is an infection of the deep layers of skin. A break in the skin, such as a cut or scratch, can let bacteria under the skin. Cellulitis causes the affected skin to become red, swollen, warm, and sore. The reddened areas havea border you can see. An open sore may leak fluid (pus). You may have a fever, chills, and pain. Cellulitis is treated with antibiotics taken for 7 to 10 days. An open sore may be cleaned and covered with cool wet gauze. Symptoms should get better 1 to 2 days after treatment is started. Make sure to take all the antibiotics for the full number of days until they are gone. Keep taking the medicine even if your symptoms go away. If not treated, cellulitis can get into the bloodstream and lymph nodes. The infection can then spread throughout the body. This causes serious illness. Home care Follow these tips: ??? Limit the use of the part of your body with cellulitis.? If the infection is on your leg, keep your leg raised while sitting. This helps reduce swelling. ??? Take all of the antibiotic medicine exactly as directed until it is gone. Don't miss any doses, especially duringthe first 7 days. Finish taking all of the medicine even when your symptoms get better. ??? Keep the affected area clean and dry. ??? Wash your hands with soap and clean, running water before and after touching your skin. Anyone else who touches your skin should also wash his or her hands. Don't share towels. ?? Follow-up care Follow up with your healthcare provider, or as advised. If your infection doesn't go away after finishing the first antibiotic, your healthcare provider will prescribe a different one. ?? When to seek medical advice Call your healthcare provider right away if any of these occur: ??? Red areas that spread ??? Swelling or pain that gets worse ??? Fluid leaking from the skin (pus) ??? Fever higher of 100.4?? F (38.0?? C) or higher after 2 days on antibiotics ?? Last Reviewed Date: 2021 ?? The Content Syndicate: [employer]. All rights reserved. This information is not intended as a substitute for professional medical care. Always follow your healthcare professional's instructions. ?? * Ermelinda Figueredo MD: PERFORM Event Display: Patient Education Leaflets Authored Date: [id number] Cephalexin Oral Tablet ?? 9899-11 Cephalexin Oral Tablet Uses For treating bacterial infection. ?? Instructions This medicine may be taken with or without food. Keep the medicine at room temperature. Avoid heat and direct light. If you forget to take a dose on time, take it as soon as you remember. If it is almost time for thenext dose, do not take the missed dose. Return to your normal schedule. Do not take 2 doses at one time. Tell your doctor and pharmacist about all your medicines. Include prescription and scpx-[id number], vitamins, and herbal medicines. Keep using this medicine for the full number of days that it is prescribed. Do not stop the medicine even if you start to feel better. If you have diabetes and use urine glucose tests, this medicine may cause incorrect results. Pleasecheck with your doctor before making any changes to your diabetes treatment plan. ?? Cautions Tell your doctor and pharmacist if you ever had an allergic reaction to a medicine. Do not use the medication any more than instructed. Please tell your doctor if you have moderate to severe diarrhea while on this medicine. Do not treat the diarrhea with ogsp-luz-hicmjav diarrhea medicine. Tell the doctor or pharmacist if you are , planning to be , or . Do not start or stop any other medicines without first speaking to your doctor or pharmacist. Do not share this medicine with anyone who has not been prescribed this medicine. ?? Side Effects The following is a list of some common side effects from this medicine. Please speak with your doctor about what you should do if you experience these or other side effects. ??? diarrhea ??? nausea and vomiting ??? stomach upset or abdominal pain ??? yeast infection of mouth ??? vaginal itching or yeast infection Call your doctor or get medical help right away if you notice any of these more serious side effects: ??? severe, watery or bloody diarrhea A few people may have an allergic reaction to this medicine. Symptoms can include difficulty breathing, skin rash, itching, swelling, or severe dizziness. If you notice any of these symptoms, seek medical help quickly. ?? Extra Please speak with your doctor, nurse, or pharmacist if you have any questions about this medicine. ?? [email or web address] IMPORTANT NOTE: This document tells you briefly how to take your medicine, but it does not tell youall there is to know about it. Your doctor or pharmacist may give you other documents about your medicine. Please talk to them if you have any questions. Always follow their advice. There is a more complete description of this medicine available in [place]. Scan this code on your smartphone or tablet or use the web address below. You can also ask your pharmacist for a printout. If you have any questions, please ask your pharmacist. The display and use of this drug information is subject to Terms of Use. Copyright(c) 2022 [employer]. ?? The Content Syndicate: [employer]. All rights reserved. This information is not intended as a substitute for professional medical care. Always follow your healthcare professional's instructions. ?? CT Lower extremity - right W contrast IV * [facility]SPowerscribe , CIS S: TRANSCRIBE Anisa STOUT, Alfred S: VERIFY Miranda STOUT, Andrae: SIGN Event Display: Result: Authored Date: CT Ext Lower W/ Contrast Right Hx of Present Illness: coming from home rightg lower leg swelling, redness, warm to touch. Knee surgery in November, painful urination and abdominal pain as well, self catheteizes self regularly. TECHNIQUE: Helical CT with contrast formatted in 3 planes. 100 cc of Omnipaque 300 was administeredintravenously. Weight-based protocol using automatic tube modulation was used to optimize exposure parameters. CTDIvol Body: 5.40 mGy, DLP Body: 592 mGy*cm. COMPARISONS: None FINDINGS: Bones and joints: Knee arthroplasty changes without evidence of hardware loosening, periprostatic fracture, or other complications. No fracture or dislocation is present. No erosions, productive changes or abnormal calcifications are noted. Soft Tissues: Diffuse soft tissue swelling and skin thickening extending from the ankle joint anteriorly, medially and laterally and superiorly to the anterior aspect of the mid tibia. No evidence ofnecrotizing fasciitis or abscess formation. IMPRESSION: No osseous abnormalities. Findings consistent with cellulitis of the distal lower leg reaching the skin overlying the ankle joint. No evidence of necrotizing fasciitis or abscess formation. I have personally reviewed the images and I agree with this report. WSN: [id number] Ordering Physician: Barbara Taveras Dictated By: Andrae Jean MD Dictated Date/Time: 02/04/23 8:45 pm Reviewed By: Alfred Lange MD Signed By: Alfred Lange MD Signed Date/Time: 02/04/23 8:50 pm Transcribed By: [place] Transcribed Date/Time: 02/04/23 8:39 pm Radiology * [facility]erscribe , CIS S: TRANSCRIBE Yuriy Haskins MD: VERIFY Event Display: Result: Authored Date: [id number] US Doppler Ext Lower Venous Right Reason: Pain Tenderness Extremities; Clinical Question(s): Thrombus; Order Comment: 02 07 2023 13:49:33 EDT - Per Rn, patient just got some bad news. Had an appt to come for ultrasound for 2:45, however per RN, patient is going to need a few hours. NWC. MAT COMPARISON: None IMAGING TECHNIQUE: Ultrasound of the veins from the groin through the calf was performed using grayscale, color, and spectral Doppler ultrasound assessing for complete compressibility and normal flowcharacteristics. FINDINGS: Common femoral vein: Patent. No thrombosis. Femoral vein: Patent. No thrombosis. Popliteal vein: Patent. No thrombosis. Gastrocnemius veins: The visualized portions are patent without evidence of thrombosis. Peroneal veins: The visualized portions are patent without evidence of thrombosis. Posterior tibial veins: The visualized portions are patent without evidence of thrombosis. Contralateral common femoral vein: Patent. No thrombosis. OTHER FINDINGS: There is diffuse calf edema. IMPRESSION: No evidence of deep venous thrombosis. WSN: [id number] Ordering Physician: Ermelinda Figueredo Dictated By: Yuriy Haskins MD Dictated Date/Time: 02/07/23 9:06 pm Reviewed By: Yuriy Haskins MD Signed By: Yuriy Haskins MD Signed Date/Time: 02/07/23 9:06 pm Transcribed By: [place] Transcribed Date/Time: 02/07/23 9:05 pm XR Knee - right 1 or 2 Views * Susan , KEVIN S: TRANSCRIBaldo Jolly MD: VERIFY Event Display: Result: Authored Date: [id number] Right knee, 2 views Reason: Pain; Clinical Question(s): Other:; effusion COMPARISON: 10/24/2022 FINDINGS: Stable hardware. No periprostatic fracture. Normal alignment. No evidence of joint effusion. IMPRESSION: No acute abnormality. WSN: [id number] Ordering Physician: Ermelinda Figueredo Dictated By: Baldo Mena MD Dictated Date/Time: 02/07/23 9:57 am Reviewed By: Baldo Mena MD Signed By: Baldo Mena MD Signed Date/Time: 02/07/23 9:57 am Transcribed By: W[place] Transcribed Date/Time: 02/07/23 9:52 am Patient Care team information Care Team Personnel Name: Nanci Omalley RN Position: [facility] RN Member Role: Primary Care Nurse Name: Rolf Zhang MD Position: [facility] Outreach Member Role: PCP Address: Address: [address] [place] [address] [place] [address]- [place] Name: Juan C Wells RN Position: [facility] RN Member Role: Primary Care Nurse Name: Lilly Nick RN Position: [facility] OB RN Member Role: Primary Care Nurse Name: Kenzie Bran RN Position: [facility] RN Member Role: Primary Care Nurse Address: Address: [address] [place] [address]- [place] Name: *Fariha WALKER Attending Position: [facility] ED Medicine MD Name: Kady Minaya Position: [facility] ED OA Charge Member Role: ED Associate Name: Barbara Taveras MD Position: [facility] Resident Member Role: ED Resident Address: Address: [address] [place] [address] [place] [address]- [place] Name: Pascale Rivera RN Position: [facility] ED RN W/OE and Tasks Member Role: Patient Care Provider Care Team Related Persons Name: IRVIN CRAFT Address: home [address] [place] [id number]
--- OUTSIDE RECORDS SUMMARY | 2023-04-13 16:14 | XMS_ITS | Continuity of Care Document ---
Author Name Unknown Organization [facility] ter Address [address] [place] [id number]- Care Team Providers Care Flying Teacher Name Role Phone Rolf Zhang MD Primary Care Physician Encounter [facility] Date(s): 10/24/22 - 10/29/[address] [id number] Encounter Diagnosis Cellulitis, leg(Final) - 10/24/22 Discharge Disposition: A-D/C Home Attending Physician: Severino Segura MD, Rudy Singh Admitting Physician: Nia STOUT, Zaheer Sung Referring Physician: Not on Staff, Referring MD [...] 10/04/13 11:14:21 Start Date: 10/04/13 Status: Ordered Augmentin 875 mg-125 mg oral tablet 1 tablet, By Mouth, 2 times a day, for 5 days, # 10 tablet, 0 Refills, Acute 11/08/22 11:26:00 EST,11/03/22 11:26:00 EST, [facility]/pharmacy #[id number], Partial fill upon patient request if the prescription isfor a schedule II opioid drug., 163, cm, 10/29/22 7... Start Date: 11/03/22 Stop Date: 11/08/22 Status: Ordered Claritin 10 mg oral tablet [...] oral tablet 5 mg, Tablet, By Mouth, 10/29/22 9:00:00 EST Start Date: 10/29/22 Stop Date: 10/29/22 Status: Completed Lymphedema Therapy Lymphedema Therapy, See Instructions, # 1 each, Refills 0, Tot. Refills 0, Maintenance, Please evaluate and treat for Lymphedema Bilateral DX: Lymphedema, 05/25/20 14:51:00 EDT, Compound Start Date: 05/25/20 Status: Ordered MorPHINE Inj 3 mg, Injection, IV Push Slowly, Every 4 hours, PRN for Pain , Severe, Routine, 10/26/22 10:05:00 EST Start Date: 10/26/22 Stop Date: 10/29/22 Status: Discontinued oxyCODONE 5 mg oral tablet 5 mg, Tablet, By Mouth, Every 6 hours, PRN for Pain , Moderate, Routine, 10/26/22 10:06:00 EST Start Date: 10/26/22 Stop Date: 10/29/22 Status: Discontinued oxyCODONE 5 mg oral tablet 5 mg, 1, tablet, By Mouth, Every 6 hours, PRN, for 7 days, # 20 tablet, Refills 0, Tot. Refills 0, Acute 11/12/22 11:26:00 EST, Pain , Moderate, 11/05/22 11:26:00 EST, Route to Pharmacy Electronically, [facility]/pharmacy #[id number], Partial fill upon patient req... Start Date: 11/05/22 Stop Date: 11/12/22 Status: Ordered PriLOSEC OTC 20 mg oral delayed release tablet 1 tablet = 20 mg, By Mouth, Daily, 0 Refills, Maintenance Start Date: 10/02/13 Status: Ordered tiZANidine 2 mg oral tablet 2 mg, By Mouth, 3 times a day, PRN, # 30 tablet, Refills 0, Tot. Refills 0, Maintenance, Spasm, 11/12/22 11:26:00 EST, Route to Pharmacy Electronically, [facility]/pharmacy #[id number], Partial fill upon patient request [...] for Microbiology Reports Name Date Blood Culture 10/24/22 Blood Culture #2 10/24/22 Arthropod Identification 10/24/22 Microbiology Reports TEST:Blood Culture STATUS:Auth (Verified) BODY SITE: SOURCE:Blood COLLECTED DATE/TIME:10/24/22 7:10 PM Blood Culture SPECIMEN DESCRIPTION : BLOOD RAC SPECIAL REQUESTS : NONE CULTURE : NO GROWTH 5 DAYS. REPORT STATUS : FINAL 10/29/2022 TEST:Blood Culture, Second Order STATUS:Auth (Verified) BODY SITE: SOURCE:Blood COLLECTED DATE/TIME:10/24/22 7:10 PM Blood Culture, Second Order SPECIMEN DESCRIPTION : BLOOD L AC SPECIAL REQUESTS : NONE CULTURE : NO GROWTH 5 DAYS. REPORT STATUS : FINAL 10/29/2022 TEST:Arthropod Identification STATUS:Auth (Verified) BODY SITE: SOURCE:ARTHRO COLLECTED DATE/TIME:10/24/22 2:07 PM Arthropod Identification SPECIMEN DESCRIPTION : ARTHROPOD SPECIAL REQUESTS : NONE DIRECT EXAM : POSITIVE FOR BED BUGS REPORT STATUS : FINAL 10/26/2022 Radiology Reports * Exam Date Time Procedure Performing Provider Status 10/24/22 11:[address] Lumbar Spine W/ Contrast Lindsey Storey; Auth (Verified) Notes: (CT Lumbar Spine W/ Contrast) Reason For Exam: Sepsis with acute on chronic low back pain;Other: RESULT: CT Lumbar Spine W/ Contrast CT Lumbar Spine W/ Contrast Reason: Other:; Sepsis with acute on chronic low back pain; Clinical Question(s): Epidural Empyema;Order Comment: CLINICAL QUESTION: Epidural Empyema TECHNIQUE: Thin section axial images were acquired through the lumbar spine following IV contrast, 100 mL Omnipaque 300. Bone and soft tissue algorithms were reconstructed along with coronal and sagittal reformats. Weight-based protocol using automatic tube modulation was used to optimize exposure p arameters. CTDIvol Body: 28.01 mGy, DLP Body: 798 mGy*cm. COMPARISON: CT abdomen and pelvis 09/06/2019 which includes the lumbar spine. FINDINGS: Stage Producer View Findings, Lines and Tubes: None. Spine: Vertebral body heights are maintained. No endplate erosive changes. There is no CT evidence for discitis. No bone destruction to suggest osteomyelitis. No lumbar fracture. Mild loss of disc space height throughout the lumbar spine. Hypertrophic facet arthropathy at L4-5 and L5-S1 contributing to bony foraminal narrowing. Evaluation of intraspinal contents is limited with CT. No abnormal enhancement within the spinal canal or epidural space to indicate abscess or infection.Epidural fat is intact posteriorly at all levels without evidence for effacement. There is a diffuse generative disc bulge at the L4-5 level which combines with facet arthropathy and ligamentum flavum thickening tube is a short segment of mild central canal stenosis which appears similar to the previous study. Soft tissues: No acute abnormality in the paravertebral soft tissues. No psoas abscess. No retroperitoneal edema or abscess. The visualized aorta shows no acute abnormality. No hydronephrosis or pyelonephritis. IMPRESSION: No CT evidence for spine infection. No evidence for discitis-osteomyelitis. No abnormal intraspinal enhancement or CT evidence for spinal epidural abscess. Chronic degenerative disc bulging at L4-5 resulting in mild central canal stenosis. Degenerative facet arthropathy at L4-5 and L5-S1 contributing to foraminal narrowing.. WSN: [id number] Ordering Physician: Vandana Paulino Dictated By: Yuriy Haskins MD Dictated Date/Time: 10/24/22 11:40 p Reviewed By: Yuriy Haskins MD Signed By: Yuriy Haskins MD Signed Date/Time: 10/24/22 11:40 pm Transcribed By: WILTON Transcribed Date/Time: 10/24/22 11:34 pm * Exam Date Time Procedure Performing Provider Status 10/24/22 10:23 PM Knee 1 or 2 Views Right Patricia Arambula ; Shoshana (Verified) Notes: (Knee 1 or 2 Views Right) Reason For Exam: cellulitis with concern of prosthetic joint infection;Infection RESULT: Knee 1 or 2 Views Right PROCEDURE: Knee 1 or 2 Views Right CLINICAL INDICATION: 62 years old Female with soft tissue swelling, pain at the RIGHT knee. Reason:Infection; cellulitis with concern of prosthetic joint infection; Clinical Question(s): Osteomyelitis; prosthetic joint infection. TECHNIQUE: AP and crosstable lateral views of the RIGHT knee are obtained. COMPARISONS: RIGHT knee December 10, 2020. FINDINGS: A total RIGHT knee replacement prosthesis with metallic cemented femoral and tibial components and lucent patellar component again noted which appears well aligned. No periosteal reaction or erosion to suggest osteomyelitis. Mild to moderate subcutaneous fat stranding diffusely suggesting subcutaneous edema. IMPRESSION: 1. No evidence of acute bony injuries. No radiographic evidence of osteomyelitis. 2. Subcutaneous edema. 3. Total knee replacement prosthesis in good alignment. Thank you for allowing me to participate in the care of this patient. WSN: [id number] Ordering Physician: Vandana Paulino Dictated By: Javier Fuentes MD Dictated Date/Time: 10/24/22 10:44 p Reviewed By: Javier Fuentes MD Signed By: Javier Fuentes MD Signed Date/Time: 10/24/22 10:44 pm Transcribed By: WILTON Transcribed Date/Time: 10/24/22 10:41 pm * Exam Date Time Procedure Performing Provider Status 10/24/22 9:06 PM US Doppler Ext Lower Venous Bilat Sally Snow; Auth (Verified) Notes: (US Doppler Ext Lower Venous Bilat) Reason For Exam: Pain in limb;Other: RESULT: US Doppler Ext Lower Venous Bilat US Doppler Ext Lower Venous Bilat Reason: Other:; Pain in limb; Clinical Question(s): Thrombosis; Order Comment: 10 24 2022 17:49:14 EST per rn ruling out beg bugs at this time....will check in later to see if pt was cleared or not. KF COMPARISON: None IMAGING TECHNIQUE: Ultrasound of the veins from the groin through the calf was performed using grayscale, color, and spectral Doppler ultrasound assessing for complete compressibility and normal flowcharacteristics. FINDINGS: RIGHT LOWER EXTREMITY: Common femoral vein: Patent. No thrombosis. Femoral vein: Patent. No thrombosis. Popliteal vein: Patent. No thrombosis. Gastrocnemius veins: The visualized portions are patent without evidence of thrombosis. Peroneal veins: The visualized portions are patent without evidence of thrombosis. Posterior tibial veins: The visualized portions are patent without evidence of thrombosis. LEFT LOWER EXTREMITY: Common femoral vein: Patent. No thrombosis. Femoral vein: Patent. No thrombosis. Popliteal vein: Patent. No thrombosis. Gastrocnemius veins: The visualized portions are patent without evidence of thrombosis. Peroneal veins: The visualized portions are patent without evidence of thrombosis. Posterior tibial veins: The visualized portions are patent without evidence of thrombosis. OTHER FINDINGS: There is mild calf edema. IMPRESSION: No evidence of deep venous thrombosis. WSN: [id number] Ordering Physician: Nellie España Dictated By: Yuriy Haskins MD Dictated Date/Time: 10/24/22 9:15 pm Reviewed By: Yuriy Haskins MD Signed By: Yuriy Haskins MD Signed Date/Time: 10/24/22 9:15 pm Transcribed By: WILTON Transcribed Date/Time: 10/24/22 9:13 pm * Exam Date Time Procedure Performing Provider Status 10/24/22 6:46 PM Chest 2 Views Frontal and Lat Patricia Arambula; Auth (Verified) Notes: (Chest 2 Views Frontal and Lat) Reason For Exam: Chest Pain;Other: RESULT: Chest 2 Views Frontal and Lat Chest 2 Views Frontal and Lat Reason: Other:; Chest Pain; Clinical Question(s): Other: COMPARISON: None. FINDINGS: Slightly limited examination due to under exposure and the patient's large body habitus. LINES AND TUBES: None. LUNGS AND PLEURA: Low lung volumes. Clear lungs. Mild central pulmonary vascular prominence without overt pulmonary edema.. No pleural effusion. No pneumothorax. HEART, MEDIASTINUM AND KEKE: Top normal heart size. Normal mediastinal and hilar contour. BONES AND SOFT TISSUES: No acute abnormality. IMPRESSION: Slightly limited examination as described above. Top normal heart size. Mild prominence of central pulmonary vascularity. No overt pulmonary edema is seen. WSN: [id number] Ordering Physician: Chung Maciel Dictated By: Kenny Vargas MD, V Dictated Date/Time: 10/24/22 6:51 pm Reviewed By: Kenny Vargas MD, V Signed By: Kenny Vargas MD, V Signed Date/Time: 10/24/22 6:51 pm Transcribed By: WILTON Transcribed Date/Time: 10/24/22 6:49 pm Vital Signs Most recent to oldest [Reference Range]: 1 2 3 Height 163 cm (10/29/22 7:30 AM) 163 cm (10/29/22 4:01 AM) 163 cm (10/28/22 11:35 PM) Weight 85.4 kg (10/25/22 10:53 PM) 85.4 kg (10/25/22 10:43 PM) Oxygen Saturation [94-100 %] 99 % (10/29/22 7:30 AM) 100 % (10/29/22 4:01 AM) 100 % (10/28/22 11:35 PM) Pulse Rate [55-90 bpm] 92 bpm *H* (10/29/22 7:30 AM) 83 bpm (10/29/22 4:01 AM) 78 bpm (10/28/22 11:35 PM) Body Mass Index [18.5-24.99 kg/m2] 32.14 kg/m2 *>HHI* (10/25/22 10:53 PM) Blood Pressure [90-138/55-84 mm Hg] 131/73mm Hg (10/29/22 9:16 AM) 156/85mm Hg *H* (10/29/22 7:30 AM) 131/73mm Hg (10/29/22 4:01 AM) Respiratory Rate [16-30 br/min] 18 br/min (10/29/22 11:03 AM) 18 br/min (10/29/22 11:03 AM) 18 br/min (10/29/22 9:15 AM) Temperature [96.8-100.4 DegF] 98.5 DegF (10/29/22 7:30 AM) 98.6 DegF (10/29/22 4:01 AM) 98.5 DegF (10/28/22 11:35 PM) Liters per Minute 0 L/min (10/24/22 2:09 PM) Mode of Delivery (Oxygen) Room air (10/29/22 7:30 AM) Room air (10/29/22 4:01 AM) Room air (10/28/22 11:35 PM) Blood pressure sites Arm, left (10/29/22 7:30 AM) Arm, left (10/29/22 4:01 AM) Arm, left (10/28/22 11:35 PM) Temperature Route Oral (10/29/22 7:30 AM) Oral (10/29/22 4:01 AM) Oral (10/28/22 11:35 PM) Dry Weight 85.4 kg (10/25/22 10:53 PM) Weight Obtained Via Bed scale (10/25/22 10:53 PM) Bed scale (10/25/22 10:43 PM) Dry Weight Obtained Via Bed scale (10/25/22 10:53 PM) Social History Social History Type Response Tobacco Use: 4 or less cigar ettes(less than 1/4 pack)/day in last 30 days. Sex Admission evaluation note * Dalia Rossi MD: MODIFY Dalia Rossi MD: MODIFY, MODIFY, MODIFY Event Display: Admission Note Authored Date: [id number] Patient: ??JUSTEN QUINTANILLA ? Age:??62 Years?Sex:??Female?:??1960?? Chief Complaint/Reason for Consultation Bilat leg swelling started today. c/o fatigue and hadache. History of Present Illness Justen Quintanilla??is a 62-year-old female with??PMH??of??hypertension,??CKD stage III, asthma, chronic anemia,??prior cervical cancer??complicated by neurogenic bladder requiring straight cath,??chronic low back pain with right radiculopathy, and depression.?? She is presenting from home??for??progressively worsening??right lower extremity??swelling, redness,??and pain??with concerns of failure for outpatient??cellulitis treatment. ?? 2 weeks ago she noticed??redness and pain in her right ankle??that was not resolving with supportive care at home??so she sought medical attention at [facility]??on 10/13 where she was prescribed??doxycycline, oxycodone??and Zofran for??right lower extremity??cellulitis.?? She was taking her doxycycline??100 mg twice a day??as prescribed??and for a few days the right??ankle??swelling andredness??remained but did not progress.?? Approximately 1 week ago??she noticed that the??swelling and redness in her ankle??was rapidly progressing up her leg??and she began to have??subjective fevers, malaise,??poor appetite,??epigastric pain,??1 episode of nonbloody nonbilious emesis when taking??doxycycline on an empty stomach but no other vomiting. She noted??joint pain in her??left knee/bilateral hips. ??She also noted??increasingly dry skin predominantly in her hands??and acute worsening of her lower back pain especially in the past 2 days.?? All of her pain has been??exacerbating her chronic migraine disorder and she has been having headaches with??similar semiology to her migraines.? The morning of 10/24??she took her last dose of doxycycline but the pain became unbearable today??on 10/24 so she presented to the emergency department. ?? In the emergency department she was given a 1 L IV fluid bolus,??Zofran, and Dilaudid??1 mg IV.?There was strong concern for??right lower extremity??cellulitis/erysipelas??on exam.?? Of note she??reports she had a total right knee replacement??1 year ago. ??No clear fluctuance was noted??in her knee??and given??rising temperature??curve, tachycardia,??and evidence of sepsis, empiric broad-spectrum antibiotics were started??with Zosyn and vancomycin??and??arthrocentesis was not attempted.?? The ED providers??consulted orthopedics.?? Admission was requested??for??ongoing management of??cellul itis??with question of??septic??prosthetic joint. ?? On my assessment??she??appeared more comfortable??after receiving Dilaudid??but her right lower extremity??erythema, warmth, and tenderness were quite impressive.?? She did not have pain out of proportion to her exam but palpation of the lower extremity was quite uncomfortable for her. She denied any chest pain. ??She did??report some??shortness of breath with exertion but none currently. EKG nonischemic and CXR nonacute. Troponins negative. ?? She denied alcohol or recreational drug use. Denies IV??drug use.??She usually smokes??quarter pack??of cigarettes daily??but with??worsening pain she has increased her??smoking to half a pack daily. In regards to the itching on her hands??she denies??any bug bites??or infestations in her home. Review of Systems 10 point review of systems negative except for stated in HPI above Objective Vital Signs?? Temperature: 99.2 DegF (10/25/22 00:26:00) Temperature Route: Oral (10/25/22 00:26:00) Pulse Rate:??101 bpm??High (10/25/22 00:26:00) Respiratory Rate: 22 br/min (10/25/22 00:44:00) Systolic Blood Pressure:??160 mm Hg??High (10/25/22 00:26:00) Diastolic Blood Pressure: 81 mm Hg (10/25/22 00:26:00) Blood pressure sites: Arm, left (10/25/22 00:26:00) Mean Arterial Pressure: 86 mm Hg (10/24/22 14:09:00) Pulse Pressure: 79 mm Hg (10/25/22 00:26:00) Oxygen Saturation: 96 % (10/25/22 00:26:00) Liters per Minute: 0 L/min (10/24/22 14:09:00) Mode of Delivery (Oxygen): Room air (10/25/22 00:26:00) Early Warning Score: 6 (10/25/22 00:44:33) ?? Intake/Output? 10/24 18:22 08 07:00 10/24 07:00 10/23 07:00 02 07:00 ?? 10/25 03:03 10/25 03:03 10/25 06:59 10/24 06:59 10/23 06:59 Intake ?200 ?0 ?200 ?0 ?0 Output ?0 ?0 ?0 ?0 ?0 Net Total ?200 ?0 ?200 ?0 ?0 ?? Physical Exam General: No acute distress, nontoxic, nondiaphoretic. HEENT: Normocephalic, atraumatic. Sclera anicteric, moist mucous membranes, oropharynx clear. No periorbital or periauricular ecchymosis.?? Neck: Supple, full range of motion, trachea midline, no thyromegaly or cervical LAD. Cardiovascular: Heart regular rate and rhythm, S1 and S2 heard, no murmurs appreciated. Radial and dorsalis pedis pulses 2+ bilaterally. Pulmonary: Lungs clear to auscultation bilaterally, good air movement, good effort.?? Abdomen: Soft, nondistended, nontender. Normal bowel sounds appreciated. Extremities/Skin: RLE deeply erythematous from ankle to mid thigh, with nonpitting edema and very warm to touch. Tender to palpation but not out of proportion to exam. No fluctuance noted in right knee. Able to bend right knee, only??mildly limited due to pain. Mild tenderness and warmth noted in left knee and bilateral hips without swelling or erythema. No bruising. No skin breakdown. Dry skin in bilateral hands. No other rashes noted. Back: No point tenderness to lumbar spine or paraspinal muscles. No step offs. Neuro: Pupils equal round and reactive to light and accommodation, without nystagmus. Extraocular movements intact. Moves 4 extremities spontaneously and symmetrically.?? Psych: Euthymic, spontaneous speech.?? Assessment/Plan [facility]??is a 62-year-old female with??PMH??of??hypertension,??CKD stage III, asthma, chronic anemia,??GERD, prior cervical cancer??complicated by neurogenic bladder requiring straight cath,??chronic low back pain with right radiculopathy, and depression.?? She is presenting from home??for??progressively worsening??right lower extremity??swelling, redness,??and pain??with concerns of failure for outpatient??cellulitis treatment. She is being admitted for sepsis 2/2 nonpurulent cellulitis of RLE with question of septic prosthetic joint in right knee. ?? #Sepsis 2/2 nonpurulent cellulitis of RLE #Question of Septic Prosthetic Joint in Right knee #Hx of total right knee replacement #Acute on chronic low back pain RLE deeply erythematous from ankle to mid thigh, with nonpitting edema and very warm to touch. Failed outpatient treatment of 10 days doxycycline. Given significant distribution of cellulitis, would continue broad antibiotics to cover strep, MSSA, and MRSA for now. No clear area in right knee that would be able to be aspirated. Right knee has prosthetic joint and raises concern for joint infection, especially in setting of sepsis with tachycardia, fever, and WBC??19.7 with high ANC 17.8. No IV drug use but acute worsening of low back pain raises concern for epidural abscess given sepsis picture and systemic symptoms of malaise, nausea, epigastric pain and other joint pain/myalgias. ED consulted orthopedics, currently awaiting reccs. ?? Plan: - Zosyn 3.375 g IV q8h - Vancomycin 1 g q24h IV - APAP PRN and oxycodone 5 mg q6h PRN severe pain - FU BLE Doppler to assess for DVT - FU Right knee XR to assess for joint infection - FU CT Lumbar spine with IV contrast to assess for abscess - FU Orthopedic reccs - NPO after midnight - Zofran PRN ?? Chronic/Stable Conditions HTN: Lisinopril 5 qd CKD Stage 3: Cr 0.9 with CrCl 75. Monitor renal function and renally dose as indicated. Asthma: Not in acute exacerbation. Albuterol PRN and Breo inpatient (advair at home) Chronic Anemia: No transfusion indicated, trend CBC. GERD: Home PPI. Tobacco use: Nicotine patch daily. ?? Code Status:??Full Code Diet:??Regular diet, NPO after midnight as we await Ortho reccs DVT PPX:??Heparin ?? Vandana Paulino MD Medicine-Pediatrics PGY2 Pager # [phone] Available on Cortext ?? Please excuse any errors in wording or grammatical mistakes in the note as this was transcribed using dictation.? This note is not final until signed by the attending physician.?? The patient was seen and discussed with attending physician, Dr. Rossi. ?? The patient seen and examined on this date. The case reviewed in detail with admitting resident on this date. I reviewed and agree as above. Dvt, moderate risk. Dalia Rossi MD Histories Allergies Allergies ?(Active and Proposed Allergies Only) busPIRone? (Severity: Unknown severity, Onset: Unknown) ?Reactions: unclear Zomig? (Severity: Unknown severity, Onset: Unknown) Motrin? (Severity: Unknown severity, Onset: Unknown) ?Reactions: Buspirone, Zomig ?? Past Medical History/Problem List Active Problems??(12) Anemia Asthma Back pain with right-sided radiculopathy Breast pain Cervical cancer Chronic kidney disease stage 3 Depression Hypertension Hypertension Neurogenic Bladder Nos Obese class I Pain of back and right lower extremity ?? Past Surgical History Arthroplasty of knee Hysterectomy and unilateral salpingo-oophorectomy sample ?? Social History Alcohol Details:??Use: Never. Employment/School Details:??Status: Disabled. Exercise Details:??Other: Regular exercise. Home/Environment Details:??Living situation: Home/Independent. ??Lives with: Alone. ??Other: . Nutrition/Health Details:??Other: One to 2 cups of coffee per day. Substance Abuse Details:??Use: Never. Tobacco Details:??Never smoker ?? Family History Other: Asthma; Brain tumor ? 23-JAN-2015 22:20:40<$>; CAD - Coronary artery disease; Cancer of breast ?? Travel History Travel Outside [facility]: No Medications Home Medications Acetaminophen (acetaminophen 325 mg oral tablet)?650?Milligram?By Mouth?Every 6 hours?May take OTC not to exceed 3000 mg/day Albuterol (Albuterol 90 mcg Inhaler)?2?puff(s)?Inhalation?Every 4 hours?as needed?Wheezing/Shortness of Breath Docusate (Colace Capsule)?100?Milligram?1?capsule?By Mouth?2 times a day Fluticasone-Salmeterol (Advair 250 mcg-50 mcg Inhaler)?1 puff?Inhalation?2 times a day Lisinopril?5?Milligram?By Mouth?Daily Loratadine (Claritin 10 mg oral tablet)?1?tab(s)?10?Milligram?By Mouth?Daily Omeprazole (PriLOSEC OTC 20 mg oral delayed release tablet)?1?tab(s)?20?Milligram?ByMouth?Daily ? Inpatient Medications Medications (18) Active SCHEDULED: (10) Breo Ellipta 200 mcg / 25 mcg Inhaler (Breo Ellipta 200 mcg-25 mcg Inhaler) ??1 puffs, Inhalation, Daily Heparin 5000 units/mL Inj (1 mL) (Heparin Inj) ??5,000 units 1 mL, Subcutaneous Injection, 3 times a day Lisinopril 5 mg Tablet (lisinopril 5 mg oral tablet) ??5 mg, By Mouth, Daily Loratadine 10 mg Tablet (Claritin 10 mg oral tablet) ??10 mg, By Mouth, Daily NaCl 0.9% Flush 3ml (NaCL 0.9% Flush) ??3 mL, IV Push, Every 8 hours Nicotine 14 mg / 24 hour Patch (Nicotine Topical) ??14 mg, Topically, Daily Pantoprazole 20 mg EC Tablet (pantoprazole 20 mg oral delayed release tablet) ??20 mg, By Mouth, Daily Piperacillin/Tazobactam 3.375 Gm Inj (Zosyn Extended IVPB) ??3.375 Gm, IVPB, Every 8 hours Remove Patch (Remove ??Patch) ??1 each, Topically, Daily Vancomycin 1250 mg Inj (Vancomycin IVPB) ??1,250 mg, IVPB, Every 24 hours CONTINUOUS: (1) Lactated Ringers (1000 mL) Cont IV 1,000 mL (LR 1,000 mL) ??1,000 mL, IV Infusion, 100 mL/hr PRN: (7) Acetaminophen 325 mg Tablet (Acetaminophen Tablet) ??650 mg, By Mouth, Every 4 hours Albuterol 90mcg/Inhalation Inhaler HFA (Albuterol 90 mcg Inhaler) ??180 mcg 2 puffs, Inhalation, Every 4 hours Melatonin 3 mg Tablet (Melatonin Tablet) ??3 mg, By Mouth, Daily at bedtime NaCl 0.9% Flush 3ml (NaCL 0.9% Flush) ??3 mL, IV Push, Every 8 hours Ondansetron 2mg/mL Inj (2mL Vial) (Ondansetron Inj) ??4 mg, IV Push Slowly, Every 30 minutes OxyCODONE 5 mg IR Tablet (oxyCODONE 5 mg oral tablet) ??5 mg, By Mouth, Every 6 hours Senna 8.6 mg / Docusate 50 mg tablet (Docusate/Senna Tablet) ??1 tablet, By Mouth, 2 times a day ? 72 Hour Antibiotic History Active Antibiotics Calendar Day Last Administered First Administered Piperacillin-Tazobactam??3.375 Gm, 25 mL/hr, IVPB, Every 8 hours ?1 10/25/2022 02:01 10/25/2022 02:01 ?? Stopped Antibiotics Stop Date/Time Last Administered First Administered Vancomycin??1 Gm, 200 mL, 200 mL/hr, IVPB, Once 10/24/2022 21:34 10/24/2022 21:34 10/24/2022 21:34 Piperacillin-Tazobactam??3.375 Gm, 25 mL/hr, IVPB, Once 10/24/2022 19:14 10/24/2022 19:14 10/24/2022 19:14 Results Recent Labs BLOOD COUNT & DIFF WBC 19.7 k/mm3 (High)?? 10/24/2022 15:00 RBC 4.25 m/mm3 ()?? 10/24/2022 15:00 Hgb 10.6 Gm/dL (Low)?? 10/24/2022 15:00 Hct 33.7 % (Low)?? 10/24/2022 15:00 MCV 79.3 femtoliters (Low)?? 10/24/2022 15:00 MCH 24.9 pg (Low)?? 10/24/2022 15:00 MCHC 31.5 g/dL (Low)?? 10/24/2022 15:00 Platelet Count 305 k/mm3 ()?? 10/24/2022 15:00 RDW-SD 48.3 femtoliters (High)?? 10/24/2022 15:00 MPV 10.8 femtoliters ()?? 10/24/2022 15:00 Nucleated RBC (Automated) 0.0 #/100 WBC'S ()?? 10/24/2022 15:00 Abs. NRBC 0.0 k/mm3 ()?? 10/24/2022 15:00 Abs. Neut 17.4 k/mm3 (High)?? 10/24/2022 15:00 Abs. Lymph 1.2 k/mm3 ()?? 10/24/2022 15:00 Abs. [place] 0.5 k/mm3 ()?? 10/24/2022 15:00 Abs. Eo 0.4 k/mm3 ()?? 10/24/2022 15:00 Abs. Baso 0.0 k/mm3 ()?? 10/24/2022 15:00 Neut % 88.3 % (High)?? 10/24/2022 15:00 Lymph % 5.9 % (Low)?? 10/24/2022 15:00 [place] % 2.7 % (Low)?? 10/24/2022 15:00 Eos % 2.2 % ()?? 10/24/2022 15:00 Baso % 0.2 % ()?? 10/24/2022 15:00 Imm Gran 0.7 % ()?? 10/24/2022 15:00 Abs. Imm Gran 0.1 k/mm3 ()?? 10/24/2022 15:00 ?? CARDIAC Nt-Probnp 198 pg/mL (High)?? 10/24/2022 15:00 High Sensitivity Troponin (HSTnT) 9 ng/L ()?? 10/24/2022 17:12 ?? CHEM GENERAL Sodium 137 mmol/L ()?? 10/24/2022 15:00 Potassium 4.5 mmol/L ()?? 10/24/2022 15:00 Chloride 101 mmol/L ()?? 10/24/2022 15:00 Bicarbonate Level 25 mmol/L ()?? 10/24/2022 15:00 Anion Gap 11 ()?? 10/24/2022 15:00 Glucose Level 90 mg/dL ()?? 10/24/2022 15:00 BUN 18 mg/dL ()?? 10/24/2022 15:00 Creatinine-Blood 0.9 mg/dL ()?? 10/24/2022 15:00 Estimated GFR Creatinine 75 ML/MIN/1.73 M2 ()?? 10/24/2022 15:00 Calcium 9.9 mg/dL ()?? 10/24/2022 15:00 Lactate 1.1 mmol/L ()?? 10/24/2022 17:12 C-Reactive Protein 12.7 mg/dL (High)?? 10/24/2022 19:10 ?? HEME OTHER Sed Rate 63 mm/hr (High)?? 10/24/2022 19:10 Hold Blue Top SPECIMEN DISCARDED AFTER 4 HOURS. ()?? 10/24/2022 15:00 ?? UA/URINALYSIS Appear/Color, Urine LIGHT YELLOW ()?? 10/24/2022 21:55 Specific Bern, Urine 1.020 ()?? 10/24/2022 21:55 pH, Urine 7.5 ()?? 10/24/2022 21:55 Albumin, Urine TRACE (Abnormal)?? 10/24/2022 21:55 Glucose, Urine NEGATIVE ()?? 10/24/2022 21:55 Ketones, Urine NEGATIVE ()?? 10/24/2022 21:55 Bilirubin, Urine NEGATIVE ()?? 10/24/2022 21:55 Hemoglobin, Urine NEGATIVE ()?? 10/24/2022 21:55 Nitrite, Urine NEGATIVE ()?? 10/24/2022 21:55 Leukocyte, Urine NEGATIVE ()?? 10/24/2022 21:55 Urobilinogen NORMAL mg/dL ()?? 10/24/2022 21:55 WBC's, Urine 2 /HPF ()?? 10/24/2022 21:55 RBC's, Urine 1 /HPF ()?? 10/24/2022 21:55 Squamous Epith 1 /HPF ()?? 10/24/2022 21:55 Hold Urine Culture Testing available 48 hours from time of collection. ()?? 10/24/2022 21:55 ?? VIROLOGY COVID-19 POC Result NEGATIVE ()?? 10/24/2022 14:21 ? Microbiology ?? COVID-19, RSV, and Flu A/B, Rapid PCR?? Collected?? Source: Nasal Body Site: Nose Collected Dt/Tm: 10/24/2022 17:09 Last Updated Dt/Tm: 10/24/2022 17:09 ? Blood Gases?? No qualifying data available. ? Note * Vandana Prieto RN: PERFORM Event Display: Discharge/Transfer Note Hospital Authored Date: [id number] Nursing Discharge Note Entered On: 10/29/2022 13:22 EST Performed On: 10/29/2022 13:20 EST by Vandana Prieto RN Nursing Discharge Note 2 Discharge Time : 10/29/2022 13:30 EST Discharge Level of Care at Discharge : Home/Fdc/Foster Care Patient Left Unit Via : Wheelchair Patient Accompanied Off Unit with : Significant other DC Instructions Provided & Signed by Pt : Yes Patient Understands D/C Instructions : Yes Patient Instructions Discharge Signed : Yes Did Pt have Specialty Bed or Wound Vac : Yes Conner WHITING, Vandana - 10/29/2022 13:20 EST * Severino Segura MD, Rudy Singh: PERFORM Event Display: Discharge/Transfer Note Hospital Authored Date: Patient: ??JUSTEN QUINTANILLA ? Age:??62 Years?Sex:??Female?:??1960?? Patient Information Discharge Location: W4 Primary Care Physician: Rolf Zhang MD Admit Date/Time: 10/24/22 18:22 Discharge Disposition Discharge Disposition: Home with Home Health Discharge Diagnosis Cellulitis, leg (L03.119) SIRS without infection or organ dysfunction (R65.10) Low back pain _ Discharge Medications Acetaminophen (acetaminophen 325 mg oral tablet)?650?Milligram?By Mouth?Every 6 hours?May take OTC not to exceed 3000 mg/day Albuterol (Albuterol 90 mcg Inhaler)?2?puff(s)?Inhalation?Every 4 hours?as needed?Wheezing/Shortness of Breath Amoxicillin-Clavulanate (Augmentin 875 mg-125 mg oral tablet)?1?tab(s)?By Mouth?2 timesa day?for 5?Days Docusate (Colace Capsule)?100?Milligram?1?capsule?By Mouth?2 times a day Durable Medical Equipment (Compression Stockings)?See Instructions?surgical, knee length 20-30 mm HgDx: right leg swelling Fluticasone-Salmeterol (Advair 250 mcg-50 mcg Inhaler)?1 puff?Inhalation?2 times a day Lisinopril?5?Milligram?By Mouth?Daily Loratadine (Claritin 10 mg oral tablet)?1?tab(s)?10?Milligram?By Mouth?Daily Miscellaneous Rx (Lymphedema Therapy)?See Instructions?Please evaluate and treat for Lymphedema Bilateral DX: Lymphedema Omeprazole (PriLOSEC OTC 20 mg oral delayed release tablet)?1?tab(s)?20?Milligram?ByMouth?Daily Oxycodone (oxyCODONE 5 mg oral tablet)?5?Milligram?1?tablet?By Mouth?Every 6 hours?as needed?for 7?Days?Pain , Moderate Tizanidine (tiZANidine 2 mg oral tablet)?2?Milligram?By Mouth?3 times a day?as needed?for 14?Days?Spasm ? Quality Measures Tobacco Use Treatment:? Medications Started Augmentin Oxycodone prn Tizanidine prn Objective Assessment and Plan Assessment: ?62-year-old female with PMH of hypertension, CKD stage III, asthma, chronic anemia, GERD, prior cervical cancer complicated by neurogenic bladder requiring straight cath, chronic low back pain withright radiculopathy, and depression. She is presenting from home for progressively worsening right lower extremity swelling, redness, and pain with concerns of failure for outpatient cellulitis treatment. She is being admitted for sepsis 2/2 nonpurulent cellulitis of RLE with question of septic prosthetic joint in right knee. Ortho consulted- performed R knee joint aspiration-with no fluid aspirate. RLE pain improved with iv abx-will switch to PO antibiotics.??PT rec home with services or rehab. Patient states she prefers home with services since pain has improved now. ? Sepsis 2/2 nonpurulent cellulitis of RLE ?Question of Septic Prosthetic Joint in Right knee ?Hx of total right knee replacement ?RLE deeply erythematous from ankle to mid thigh, with nonpitting edema and very warm to touch. Failed outpatient treatment of 10 days doxycycline. Given significant distribution of cellulitis, would continue broad antibiotics to cover strep, MSSA, and MRSA for now. No clear area in right kneethat would be able to be aspirated. ?Right knee has prosthetic joint and raises concern for joint infection, especially in setting of sepsis with tachycardia, fever, and WBC 19.7 with high ANC 17.8. ?No IV drug use but acute worsening of low back pain raises concern for epidural abscess given sepsis picture and systemic symptoms of malaise, nausea, epigastric pain and other joint pain/myalgias.?? Right lower extremity swelling and warmth??improving ? Plan: ?Discharge today ?Augmentin for 5 days ?Oxycodone prn for severe pain ?-Ultrasound negative for DVT, knee x-ray shows good alignment of the prosthetic joint. ?- CT Lumbar spine with IV contrast does not show any concern for abscess however there is facet arthropathy and disc bulging at L L4-L5 ?-Ortho consulted-attempted R knee joint aspiration-no fluid drained ?? Acute on chronic low back pain ?-will refer to spine clinic for low back pain ??CT L spine showing disc bulge at L4L5 and foramen stenosis ?-Tizanidine prn for spasm. ? Chronic/Stable Conditions ?HTN: Resume lisinopril 5 mg daily ?CKD Stage 3: Cr 0.9 with CrCl 75. Monitor renal function and renally dose as indicated. ?Asthma: Not in acute exacerbation. Albuterol PRN and Breo inpatient (advair at home) ?Chronic Anemia: No transfusion indicated, trend CBC. ?GERD: Home PPI. ?Tobacco use: Nicotine patch daily. ? Code Status: Full Code ?Diet: Regular diet, ?DVT PPX: Heparin ? Discharge Planning:? Vital Signs?? Temperature: 98.5 DegF (10/29/22 07:30:00) Temperature Route: Oral (10/29/22 07:30:00) Pulse Rate:??92 bpm??High (10/29/22 07:30:00) Respiratory Rate: 18 br/min (10/29/22 11:03:00) Respiratory Rate: 18 br/min (10/29/22 11:03:00) Systolic Blood Pressure: 131 mm Hg (10/29/22 09:16:00) Diastolic Blood Pressure: 73 mm Hg (10/29/22 09:16:00) Blood pressure sites: Arm, left (10/29/22 07:30:00) Mean Arterial Pressure: 109 mm Hg (10/29/22 07:30:00) Pulse Pressure: 71 mm Hg (10/29/22 07:30:00) Oxygen Saturation: 99 % (10/29/22 07:30:00) Mode of Delivery (Oxygen): Room air (10/29/22 07:30:00) Early Warning Score: 0 (10/29/22 11:09:25) ? . Physical Exam Constitutional: Alert, in no distress. Mental Status: Oriented to person, place and time. Head: Normocephalic. Eyes: Pupils are equal, round and reactive to light. Extraocular muscles intact. Respiratory: Clear to auscultation. No wheezing, rales or rhonchi. Cardiovascular: S1 S2 regular. No murmurs, rubs or gallops. Gastrointestinal: Abdomen soft, non-tender, non-distended. Genitourinary: No costovertebral angle tenderness. Neurologic:?? Moves all extremities spontaneously. Sensation intact bilaterally. Skin: No rashes or lesions. No petechiae or purpura.?? Musculoskeletal: RLE pain and swelling+, tenderness+ Consultants Ortho Pending Results Basic Metabolic Panel ordered on 10/25/2022 Blood Culture ordered on 10/24/2022 Blood Culture #2 ordered on 10/24/2022 CBC ordered on 10/25/2022 Magnesium Level ordered on 10/25/2022 Phosphorus Level ordered on 10/25/2022 Patient Education Titles Back Pain (Acute or Chronic)?? Relieving Back Pain?? All About Arthritis?? Discharge Instructions for Cellulitis?? Cellulitis?? Follow-Up Appointments Added Follow Up ?Time Frame ?Comments Spine clinic?1 month?DJD of spine, chronic back pain Vicente STOUT, Rolf Post Discharge Care Diet: Regular Diet Condition: stable Prognosis: Fair Discharge ?10/29/22 11:32:00 EST Home Health Face to Face *Denotes mandatory jha ?? *I certify that this patient is under my care and that I or an allowed non- physician working with me had a face to face encounter with the patient on this date:??10/29/2022 11:40 ?? *The encounter with the patient was in whole, or in part, for the following medical condition, which is the primary diagnosis(es) for home health care:??Cellulitis, leg (L03.119) SIRS without infection or organ dysfunction (R65.10) ? *Select the indications for the discipline/s that are being arranged for this patient. Nursing (select all that apply): [_] None [_] Medication management (reconciliation, teaching)?? [_] Chronic disease management?? [_] Wound care and treatment?? [_] Home safety evaluation [_] Administer SQ/IM/IV medications?? [_] Cath care?? [_] Drain care?? [_] Trach or GT care?? Other _ Occupation Therapy (select all that apply): [_] None [_] ADL Management [_] Fall prevention training [_] Energy conservation [_] Cognitive training Other _ Physical Therapy (select all that apply): [_] None [_] Functional mobility training [_x] Home exercise program to strengthen [_] Increase ROM?? [_] Falls prevention training [_] Home maintenance program for chronic disease Other _ Speech Therapy (select all that apply): [_] None [_] Swallow evaluation and training [_] Speech and language training [_] Cognitive training to process, organize, and/or recall information Other _ ? *Homebound due to (select all that apply): [_] Inability to leave home without assistance/supervision [_] Inability to ambulate without assistance [_x] Pain [x_] Decreased strength and endurance [_] Unsteady gait [_] Severe SOB and fatigue [_] Impaired transfers [_] Inability to negotiate stairs [_] Limited weight bearing [_] Mental status change? *Physician Signature: _Rudy Segura MD ?? *By signing this, I certify that I have personally evaluated the patient and agree with the findings and recommendations as documented above. ? Results Discharge Labs BLOOD BANK Blood Type O Positive ()?? 10/24/2022 21:10 Antibody Screen Negative ()?? 10/24/2022 21:10 ?? BLOOD COUNT & DIFF WBC 9.0 k/mm3 ()?? 10/28/2022 02:34 RBC 3.35 m/mm3 (Low)?? 10/28/2022 02:34 Hgb 8.2 Gm/dL (Low)?? 10/28/2022 02:34 Hct 26.5 % (Low)?? 10/28/2022 02:34 MCV 79.1 femtoliters (Low)?? 10/28/2022 02:34 MCH 24.5 pg (Low)?? 10/28/2022 02:34 MCHC 30.9 g/dL (Low)?? 10/28/2022 02:34 Platelet Count 214 k/mm3 ()?? 10/28/2022 02:34 RDW-SD 48.7 femtoliters (High)?? 10/28/2022 02:34 MPV 11.2 femtoliters ()?? 10/28/2022 02:34 Nucleated RBC (Automated) 0.0 #/100 WBC'S ()?? 10/28/2022 02:34 Abs. NRBC 0.0 k/mm3 ()?? 10/28/2022 02:34 Abs. Neut 4.8 k/mm3 ()?? 10/28/2022 02:34 Abs. Lymph 3.3 k/mm3 (High)?? 10/28/2022 02:34 Abs. [place] 0.8 k/mm3 ()?? 10/28/2022 02:34 Abs. Eo 0.2 k/mm3 ()?? 10/28/2022 02:34 Abs. Baso 0.0 k/mm3 ()?? 10/28/2022 02:34 Neut % 52.8 % ()?? 10/28/2022 02:34 Lymph % 36.0 % ()?? 10/28/2022 02:34 [place] % 9.0 % ()?? 10/28/2022 02:34 Eos % 1.8 % ()?? 10/28/2022 02:34 Baso % 0.1 % ()?? 10/28/2022 02:34 Imm Gran 0.3 % ()?? 10/28/2022 02:34 Abs. Imm Gran 0.0 k/mm3 ()?? 10/28/2022 02:34 ?? CARDIAC Nt-Probnp 198 pg/mL (High)?? 10/24/2022 15:00 High Sensitivity Troponin (HSTnT) 9 ng/L ()?? 10/24/2022 17:12 ?? CHEM GENERAL Sodium 140 mmol/L ()?? 10/28/2022 02:34 Potassium 4.2 mmol/L ()?? 10/28/2022 02:34 Chloride 105 mmol/L ()?? 10/28/2022 02:34 Bicarbonate Level 25 mmol/L ()?? 10/28/2022 02:34 Anion Gap 10 ()?? 10/28/2022 02:34 Glucose Level 99 mg/dL ()?? 10/28/2022 02:34 BUN 12 mg/dL ()?? 10/28/2022 02:34 Creatinine-Blood 0.8 mg/dL ()?? 10/28/2022 02:34 Estimated GFR Creatinine 91 ML/MIN/1.73 M2 ()?? 10/28/2022 02:34 Calcium 9.0 mg/dL ()?? 10/28/2022 02:34 Phosphorus 2.8 mg/dL ()?? 10/26/2022 01:30 Magnesium 2.1 mg/dL ()?? 10/26/2022 01:30 Lactate 1.1 mmol/L ()?? 10/24/2022 17:12 C-Reactive Protein 12.7 mg/dL (High)?? 10/24/2022 19:10 ?? HEME OTHER Sed Rate 63 mm/hr (High)?? 10/24/2022 19:10 Hold Blue Top SPECIMEN DISCARDED AFTER 4 HOURS. ()?? 10/24/2022 15:00 ?? TOXICOLOGY/TDM Vancomycin Level, Trough 23.8 mg/L (High)?? 10/28/2022 02:34 ? UA/URINALYSIS Appear/Color, Urine LIGHT YELLOW ()?? 10/24/2022 21:55 Specific [place], Urine 1.020 ()?? 10/24/2022 21:55 pH, Urine 7.5 ()?? 10/24/2022 21:55 Albumin, Urine TRACE (Abnormal)?? 10/24/2022 21:55 Glucose, Urine NEGATIVE ()?? 10/24/2022 21:55 Ketones, Urine NEGATIVE ()?? 10/24/2022 21:55 Bilirubin, Urine NEGATIVE ()?? 10/24/2022 21:55 Hemoglobin, Urine NEGATIVE ()?? 10/24/2022 21:55 Nitrite, Urine NEGATIVE ()?? 10/24/2022 21:55 Leukocyte, Urine NEGATIVE ()?? 10/24/2022 21:55 Urobilinogen NORMAL mg/dL ()?? 10/24/2022 21:55 WBC's, Urine 2 /HPF ()?? 10/24/2022 21:55 RBC's, Urine 1 /HPF ()?? 10/24/2022 21:55 Squamous Epith 1 /HPF ()?? 10/24/2022 21:55 Hold Urine Culture Testing available 48 hours from time of collection. ()?? 10/24/2022 21:55 ? VIROLOGY Influenza A PCR NEGATIVE ()?? 10/24/2022 07:57 Influenza B PCR NEGATIVE ()?? 10/24/2022 07:57 RSV PCR NEGATIVE ()?? 10/24/2022 07:57 COVID-19 PCR Specimen Source NASAL ()?? 10/26/2022 03:30 COVID-19 PCR Result NEGATIVE ()?? 10/26/2022 03:30 COVID-19 POC Result NEGATIVE ()?? 10/24/2022 14:21 ? Microbiology ?? Arthropod Identification?? Completed?? Source: Arthropod Body Site: ?? Collected Dt/Tm: 10/24/2022 14:07 Last Updated Dt/Tm: 10/24/2022 14:14 ?SPECIMEN DESCRIPTION : ARTHROPODSPECIAL REQUESTS : NONEDIRECT EXAM : POSITIVE FOR BED BUGSREPORT STATUS : FINAL 10/26/2022 COVID-19, RSV, and Flu A/B, Rapid PCR?? Completed?? Source: Nasal Body Site: Nose Collected Dt/Tm: 10/24/2022 17:09 Last Updated Dt/Tm: 10/25/2022 09:32 ? _35 minutes spent on discharge * Laury Ramirez RN: PERFORM Event Display: Patient Education/Instruction Authored Date: [id number] Inpatient Adult Discharge Instructions [place] [id number] Name: JUSTEN QUINTANILLA : 1960 Visit: 10/24/2022 18:22:00 Current Date: 10/29/2022 12:26 Account: [id number] Inpatient Adult Discharge Instructions We would like [...] and their families. Surveys are administered by [employer] ?? If further treatment with your primary care physician or another doctor is recommended, it is important for you to keep the appointment. Call your primary care physician or return to the Emergency Department immediately if your condition worsens, fails to improve, or new symptoms develop. If you need to find a doctor, you can call [facility] for a referral at [phone] or toll free at [phone] or log in to [email or web address].. ?? You can view and manage your care through the patient portal or by using a health care shahbaz of your choosing. [employer] is a website that allows you to securely view your medical information including your hospital discharge summary, office visit summaries, medications and follow-up visits. You can also request appointments, renew medications, and request access to your medical information using a health care shahbaz of your choosing, or just ask a question. You can enroll at [email or web address] or register during your next office visit. You have been discharged from [facility], Patient Care Unit: W4. If you have any questions regarding these instructions after you leave, please call us and we will be happy to assist you. [facility] Your Care Team Attending Physician Severino Segura MD, Rudy Singh Consulting Providers Eugenia Glass MD Discharging Providers Severino Segura MD, Rudy Singh Reason for Admission Bilat leg swelling started today. c/o fatigue and hadache. Your Diagnosis Cellulitis, leg SIRS without infection or organ dysfunction Tests Performed Below is a partial list of the tests performed during your hospitalization. You may have had other tests and procedures not included in this list. Please discuss all test results with your provider. B Type Natriuretic Peptide Basic Metabolic Panel BUN Calcium Level CBC CBC w/ Differential COVID-19 (NOVEL CORONAVIRUS) PCR COVID-19 RNA POC COVID-19, RSV, and Flu A/B, Rapid PCR Creatinine CRP Electrolytes ESR Glucose Level H + H High??Sensitivity??Troponin T Hold Blue Top Tube Lactate Level Magnesium Level Phosphorus Level Platelet Count Potassium Level Type and Screen Urinalysis w/hold for Urine Culture Vancomycin Trough CT Lumbar Spine W/ Contrast US Doppler Ext Lower Venous Bilat XR Chest 2 Views Frontal and Lat XR Knee 1 or 2 Views Right Primary Care Provider Vicente STOUT, Rolf Advance Directive Health Care Proxy on File Yes - Health Care Proxy Discharge Vitals Temperature: 98.5 DegF Height: 163 cm Pulse Rate:??92 bpm??High Weight: 85.4 kg Respiratory Rate: 18 br/min Body Mass Index:??32.14 kg/m2??Critical Respiratory Rate: 18 br/min Body surface area: 1.97 Systolic Blood Pressure: 131 mm Hg ?? Diastolic Blood Pressure: 73 mm Hg ?? Oxygen Saturation: 99 % ?? Studies Pending All tests and labs ordered during this hospital stay have been completed unless listed below. Please discuss all pending results with your provider listed above in these instructions. ?? Basic Metabolic Panel Blood Culture Blood Culture #2 CBC Magnesium Level Phosphorus Level What to do next Instructions From Your Doctor Discharge Orders Diet:??Regular Diet Condition:??stable Prognosis:??Fair You Need to Schedule the Following Appointments Follow Up with??Spine clinic When??Within 1 month Why: DJD of spine, chronic back pain Where: Follow Up with??Rolf Zhang MD When?? Where: [address] [place] [address]- Discharge Medications JUSTEN QUINTANILLA :1960 Visit Date:10/24/2022 Medications: Please continue your medications until treatment is completed or stopped by your provider. Medications not listed below should be discontinued. Discuss any questions related to medications with your provider. What How Much When Instructions Next Dose New Amoxicillin-Clavulanate (Augmentin 875 mg-125 mg oraltablet) 1 tab(s) Oral Twice a day Duration: [address] [facility]/pharmacy #[id number] Due today at 4 p.m. New Oxycodone (oxyCODONE 5 mg oral tablet) 1 tab(s) Oral Every 6 hours as needed for Pain , Moderate Duration: 7 Days Pickup at [facility]/pharmacy #[id number] Due today at 315p.m. if needed. New Tizanidine (tiZANidine 2 mg oral tablet) 2 Milligram Oral 3 times a day as needed for Spasm Duration: [address] [facility]/pharmacy #[id number] Due today at 315p.m. if needed. Unchanged Acetaminophen (acetaminophen 325 mg oral tablet) 650 Milligram Oral Every 6 hours May take OTC not to exceed 3000 mg/ day ?? Due as needed. Not given in last 6 hours. Unchanged Albuterol (Albuterol 90 mcg Inhaler) 2 puff(s) Inhalation Every 4 hours as needed for Wheezing/Shortness of Breath Not given today. Unchanged Docusate (Colace Capsule) 100 Milligram Oral Twice a day Not given today. Unchanged Durable Medical Equipment (Compression Stockings) See instructions surgical, knee length 20-30 mm Hg Dx: right leg swelling ?? As usual. Unchanged Fluticasone-Salmeterol (Advair 250 mcg-50 mcg Inhaler) 1 puff Inhalation Twice a day Due tomorrow 2 in the morning. Unchanged Lisinopril 5 Milligram Oral Daily Due tomorrow 10/30 in the morning. Unchanged Loratadine (Claritin 10 mg oral tablet) 1 tab(s) Oral Daily Due tomorrow 10/30 in the morning. Unchanged Miscellaneous Rx (Lymphedema Therapy) See instructions Please evaluate and treat for Lymphedema Bilateral DX: Lymphedema ?? As usual. Unchanged Omeprazole (PriLOSEC OTC 20 mg oral delayed release tablet) 1 tab(s) Oral Daily Due tomorrow 10/30 in the morning. Pharmacy Information [facility]/pharmacy #[id number]: [address], [place] [phone] Test Results Below is a partial list of the most recent Laboratory test results done prior to this discharge. You may have had other tests and procedures not included in this list. Please discuss all test resultswith your provider. B Type Natriuretic Peptide (10/24/2022) ???Nt-Probnp - 198 pg/mL Basic Metabolic Panel (10/28/2022) ???Sodium - 140 mmol/L???Potassium - 4.2 mmol/L???Chloride - 105 mmol/L???Bicarbonate Level - 25 mmol/L???Anion Gap - 10???Glucose Level - 99 mg/dL???BUN - 12 mg/dL???Creatinine-Blood - 0.8 mg/dL???Estimated GFR Creatinine - 91 ML/MIN/1.73 M2???Calcium - 9.0 mg/dL BUN (10/27/2022) ???BUN - 8 mg/dL Calcium Level (10/27/2022) ???Calcium - 9.0 mg/dL CBC (10/25/2022) ???WBC - 13.5 k/mm3???RBC - 3.71 m/mm3???Hgb - 9.2 Gm/dL???Hct - 28.8 %???MCV - 77.6 femtoliters???MCH - 24.8 pg???MCHC - 31.9 g/dL???Platelet Count - 234 k/mm3???RDW-SD - 49.1 femtoliters???MPV - 11.1 femtoliters???Nucleated RBC (Automated) - 0.0 #/100 WBC'S???Abs. NRBC - 0.0 k/mm3 CBC w/ Differential (10/28/2022) ???WBC - 9.0 k/mm3???RBC - 3.35 m/mm3???Hgb - 8.2 Gm/dL???Hct - 26.5 %???MCV - 79.1 femtoliters???MCH - 24.5 pg???MCHC - 30.9 g/dL???Platelet Count - 214 k/mm3???RDW-SD - 48.7 femtoliters???MPV - 11.2 femtoliters???Nucleated RBC (Automated) - 0.0 #/100 WBC'S???Abs. NRBC - 0.0 k/mm3???Abs. Neut - 4.8 k/mm3???Abs. Lymph - 3.3 k/mm3???Abs. [place] - 0.8 k/mm3???Abs. Eo - 0.2 k/mm3???Abs. Baso - 0.0 k/mm3???Neut % - 52.8 %???Lymph % - 36.0 %???[place] % - 9.0 %???Eos % - 1.8 %???Baso % - 0.1 %???Imm Gran- 0.3 %???Abs. Imm Gran - 0.0 k/mm3 COVID-19 (NOVEL CORONAVIRUS) PCR (10/26/2022) ???COVID-19 PCR Specimen Source - NASAL???COVID-19 PCR Result - NEGATIVE COVID-19 RNA POC (10/24/2022) ???COVID-19 POC Result - NEGATIVE COVID-19, RSV, and Flu A/B, Rapid PCR (10/24/2022) ???Influenza A PCR - NEGATIVE???Influenza B PCR - NEGATIVE???RSV PCR - NEGATIVE???COVID-19 PCR Specimen Source - NASAL???COVID-19 PCR Result - NEGATIVE Creatinine (10/27/2022) ???Creatinine-Blood - 0.8 mg/dL???Estimated GFR Creatinine - 90 ML/MIN/1.73 M2 CRP (10/24/2022) ???C-Reactive Protein - 12.7 mg/dL Electrolytes (10/27/2022) ???Sodium - 136 mmol/L???Potassium - 4.1 mmol/L???Chloride - 103 mmol/L???Bicarbonate Level - 24 mmol/L???Anion Gap - 9 ESR (10/24/2022) ???Sed Rate - 63 mm/hr Glucose Level (10/27/2022) ???Glucose Level - 92 mg/dL H + H (10/26/2022) ???Hgb - 8.7 Gm/dL???Hct - 28.1 % High??Sensitivity??Troponin T (10/24/2022) ???High Sensitivity Troponin (HSTnT) - 9 ng/L Hold Blue Top Tube (10/24/2022) ???Hold Blue Top - SPECIMEN DISCARDED AFTER 4 HOURS. Lactate Level (10/24/2022) ???Lactate - 1.1 mmol/L Magnesium Level (10/26/2022) ???Magnesium - 2.1 mg/dL Phosphorus Level (10/26/2022) ???Phosphorus - 2.8 mg/dL Platelet Count (10/26/2022) ???Platelet Count - 204 k/mm3 Potassium Level (10/26/2022) ???Potassium - 4.0 mmol/L Type and Screen (10/24/2022) ???Blood Type - O Positive???Antibody Screen - Negative Urinalysis w/hold for Urine Culture (10/24/2022) ???Appear/Color, Urine - LIGHT YELLOW???Specific Bern, Urine - 1.020???pH, Urine - 7.5???Albumin, Urine - TRACE???Glucose, Urine - NEGATIVE???Ketones, Urine - NEGATIVE???Bilirubin, Urine - NEGATIVE???Hemoglobin, Urine - NEGATIVE???Nitrite, Urine - NEGATIVE???Leukocyte, Urine - NEGATIVE???Urobilin ogen - NORMAL???WBC's, Urine - 2 /HPF???RBC's, Urine - 1 /HPF???Squamous Epith - 1 /HPF???Hold Urine Culture - Testing available 48 hours from time of collection. Vancomycin Trough (10/28/2022) ???Vancomycin Level, Trough - 23.8 mg/L Allergies (NKA means No Known Allergies) Motrin??(Zomig, Buspirone) Zomig busPIRone??(unclear) Problems Active Problems??(12) Anemia?? Asthma?? Back pain with right-sided radiculopathy?? Breast pain?? Cervical cancer?? Chronic kidney disease stage 3?? Depression?? Hypertension?? Hypertension?? Neurogenic Bladder Nos?? Obese class I?? Pain of back and right lower extremity?? Education Materials Below is the list of Educational Leaflet Providered with your Discharge Instructions. Back Pain (Acute or Chronic)?? Relieving Back Pain?? All About Arthritis?? Discharge Instructions for Cellulitis?? Cellulitis?? Valuables and Belongings I fully understand and agree that [facility] accepts no responsibility for all my personal [...] Review of Valuable and Belonging List: With patient, With witness Date for Pt to Sign Valuables/Belongings: 10/25/22 22:43:00 ?? Other Discharge Information ? Pulmonary Rehab Status?? Pulmonary Rehab Discharge Status?? Respiratory Rate: 18 br/min Respiratory Rate: 18 br/min ? Common Emergency [...] are strongly encouraged to quit. Please call [facility] at [phone] or [phone] ([phone]) or log in to [email or web address] for referrals to smoking cessation programs. ?? The National Suicide Prevention Hotline is available 09/04 if you or someone you know needs to find a reason to keep living. By calling 9-911-535-Kiip (3426) you'll be connected to a skilled, trained counselor at a crisis center in your area. INPATIENT DISCHARGE INSTRUCTIONS SIGNATURE JUSTEN RAYMUNDO Location:[facility] Registration Date and Time:10/24/2022 18:22 EST Primary Care Physician: Vicente STOUT, Rolf, JUSTEN HOWE, have received the above patient education materials/instructions and have verbalizedunderstanding. If ambulance or transport services are being used I further acknowledge being given a choice of service. ?? If you need to contact me, please call me at this number: . Patient/Pitch Filler Name: Patient/Pitch Filler Signature: Relationship to Patient: Witness Name/Signature: Date: * Severino Segura MD, Rudy Singh: PERFORM Event Display: Patient Education Leaflets Authored Date: [id number] Back Pain (Acute or Chronic) ?? [id number] Back Pain (Acute or Chronic) Back pain is one of the most common problems. The good news is that most people feel better in 1 to2 weeks, and most of the rest in 1 to 2 months. Most people can remain active. People who have pain??describe it differently???not??everyone is the same. ??? The pain can be sharp, stabbing, shooting, aching, cramping or burning. ??? Movement, standing,bending, lifting, sitting, or walking may worsen pain. ??? It can be limited to one spot or area, or it can be more generalized. ??? It can spread upwards, to the front, or go down your arms or legs (sciatica). ??? It can cause muscle spasm. Most of the time, mechanical problems with the muscles??or spine cause the pain. Mechanical problems??are usually caused by an injury to the muscles or ligaments. Illness can cause back pain, but it's usually not caused by a serious illness. Mechanical problems include:? Physical activity such as sports, exercise, work, or normal activity ??? Overexertion, lifting,pushing, pulling incorrectly or too aggressively ??? Sudden twisting, bending, or stretching from an accident, or accidental movement ??? Poor posture ??? Stretching or moving wrong, without noticingpain at the time ??? Poor coordination, lack of regular exercise (check with your doctor about this) ??? Spinal disc disease or arthritis ??? Stress Pain can also be related to , or illness such as appendicitis, bladder or kidney infections, kidney stones, and pelvic infections. Acute back pain usually gets better in??1 to 2 weeks. Back pain related to disk disease, arthritis in the spinal joints, or narrowing of the spinal canal (spinal stenosis) can become chronic and lastfor months or years. Unless you had a physical injury such as a car accident or fall, X-rays are usually not needed for the first assessment of back pain. If pain continues and does not respond to medical treatment, you may need X-rays and other tests. Home care Try this home care advice: ??? When in bed, try??to find a position of comfort. A firm mattress is best. Try lying flat on your back with pillows under your knees. You can also try lying on your side with your knees bent up toward your chest and a pillow between your knees. ??? At first, don't try to stretch out the sore spots. If there is a strain, it's not like the good soreness you get after exercising without an injury. In this case, stretching may make it worse. ??? Don't sit for long periods, as in a long car ride or during other??travel. This puts more stress on the lower back than standing or walking. ??? During the first 24 to 72 hours after an acute injury or flare up of chronic back pain, apply an ice pack to the painful area for 20 minutes and then remove it for 20 minutes. Do this over a period of 60 to 90 minutes or several times a day. This will reduce swelling and pain. Wrap the ice pack in a thintowel or plastic to protect your skin. ??? You can start with ice, then switch to heat. Heat (hot shower, hot bath, or heating pad) reduces pain and works well for muscle spasms. Heat can be applied to the painful area for 20 minutes then remove it for 20 minutes. Do this over a period of 60 to 90 minutes or several times a day. Don't sleep on a heating pad. It can lead to skin trimble or tissue damage. ??? You can alternate ice and heat therapy. Talk with your doctor about??the best treatment for your back pain. ??? Therapeutic massage can help relax the back muscles without stretching them. ??? Be aware of safe lifting methods. Don't lift anything without stretching first. Medicines Talk to your doctor before using medicine, especially if you have other medical problems or are taking other medicines. ??? You may use lghg-buz-iiexazu medicine as directed on the bottle to control pain, unless another pain medicine was prescribed. Talk with your healthcare provider before using these medicines if you have chronic conditions such as diabetes, liver or kidney disease, stomach ulcers, or digestive bleeding. Also talk with your provider if you take blood thinners. ??? Be careful if you are given a prescription medicines, narcotics, or medicine for muscle spasms. They can cause drowsiness, affect your coordination, reflexes, and judgment. Don't drive or operate heavy machinery. ?? Follow-up care Follow up with your healthcare provider, or as advised.?? If X-rays were taken, you will be told of any new findings that may affect your care. ?? Call 911 Call 911 if any of the following occur: ??? Trouble breathing ??? Confusion ??? Very drowsy or trouble awakening ??? Fainting or loss of consciousness ??? Rapid or very slow heart rate ??? Loss of bowel or bladder control ?? When to seek medical advice Call your healthcare provider right away if any of these occur:? Pain gets worse or spreads toyour legs ??? Your bowel or bladder control changes ??? Fever ??? Blood in your urine ??? Weakness or numbness in one or both legs ??? Numbness in the groin or genital area ?? Last Reviewed Date: 2021 ?? [employer]. All rights reserved. This information is not intended as a substitute for professional medical care. Always follow your healthcare professional's instructions. ?? * Severino Segura MD, Rudy Singh: PERFORM Event Display: Patient Education Leaflets Authored Date: [id number] Relieving Back Pain ?? [id number] Relieving Back Pain Back pain is a common problem. You can strain back muscles by lifting too much weight. Or just by moving the wrong way. Back strain can be uncomfortable or even painful. And it can take weeks or months??to get better. Try these tips to help yourself feel better. They can also help prevent back strains. Ice Ice eases muscle pain and swelling. It helps most during the first 24 to 48 hours after an injury. ??? Wrap an ice pack or a bag of frozen peas in a thin towel. Never put ice directly on your skin. ??? Place the ice where your back hurts the most. ??? Don???t ice for more than 20 minutes at a time. ??? You can use ice several times a day. ?? Medicines Yahy-qls-xlyogga pain relievers??include??acetaminophen and anti-inflammatory medicines. These include aspirin, naproxen,??and ibuprofen. They can help ease discomfort. Some also ease swelling. ??? Tell your healthcare provider about any medicines you are already taking. ??? Take medicines only as directed. ??? Never give aspirin to children or teens without first talking with your child???s healthcare provider. ?? Manipulation and massage Having spinal manipulation by an osteopathic doctor or chiropractor may be helpful. Getting a massage or acupuncture also may help.??Physical therapy can set up an exercise program that works to easeyour pain. It's also helps prevent further injuries. ?? Heat After the first 48 hours, heat can relax sore muscles and improve blood flow. ??? Try a warm bath or shower. Or use a heating pad set on low. To prevent a burn, keep a cloth between you and the heating pad. ??? Don???t use a heating pad for more than 15 minutes at a time. Never sleep on a heating pad. This can cause trimble if you have diabetes or other conditions that affect how well you can senseheat. ?? Last Reviewed Date: 2021 ?? 0393-3470 [employer]. All rights reserved. This information is not intended as a substitute for professional medical care. Always follow your healthcare professional's instructions. ?? * Severino Segura MD, Rudy Singh: PERFORM Event Display: Patient Education Leaflets Authored Date: [id number] All About Arthritis ?? All About Arthritis - Video Arthritis refers to a group of disorders that involve the body???s joints and have similar symptoms, including pain, stiffness, and swelling. Learn about the different types of arthritis and their treatment. To view the video go to this web address: [email or web address] Or, scan this QR code with your smart phone Last Reviewed Date: 2020 ?? 2932-0314 [employer]. All rights reserved. This information is not intended as a substitute for professional medical care. Always follow your healthcare professional's instructions. ?? * Event Display: Cardiac Rhythm Strips Authored Date: [id number] * BHSP[facility]erscribe , CIS S: TRANSCRIBE Kenny Vargas MD, V: VERIFY Event Display: Result: Authored Date: [id number] Chest 2 Views Frontal and Lat Reason: Other:; Chest Pain; Clinical Question(s): Other: COMPARISON: None. FINDINGS: Slightly limited examination due to under exposure and the patient's large body habitus. LINES AND TUBES: None. LUNGS AND PLEURA: Low lung volumes. Clear lungs. Mild central pulmonary vascular prominence without overt pulmonary edema.. No pleural effusion. No pneumothorax. HEART, MEDIASTINUM AND KEKE: Top normal heart size. Normal mediastinal and hilar contour. BONES AND SOFT TISSUES: No acute abnormality. IMPRESSION: Slightly limited examination as described above. Top normal heart size. Mild prominence of central pulmonary vascularity. No overt pulmonary edema is seen. WSN: [id number] Ordering Physician: Chung Maciel Dictated By: Kenny Vargas MD, V Dictated Date/Time: 10/24/22 6:51 pm Reviewed By: Kenny Vargas MD, V Signed By: Kenny Vargas MD, V Signed Date/Time: 10/24/22 6:51 pm Transcribed By: WILTON Transcribed Date/Time: 10/24/22 6:49 pm Hospital Progress note * Emma Baker RN: PERFORM, SIGN, VERIFY Event Display: Progress Note Hospital Authored Date: [id number] Patient: JUSTEN QUINTANILLA Age: 62 years Sex: Female : 1960 Associated Diagnoses: None Author: Emma Baker RN Findings Problem Related to Alteration in Integumentary : Alteration in Integumentary/new 10/28/2022 21:00 EST Alteration in Integumentary Related to Cellulitis Goals & Outcomes, Integumentary Pt will maintain adequate fluid & nutritional balance, Pt will maintain intact skin integrity, Wound will progress towards healing Interventions, Integumentary Encourage & assist pt to change position frequently, Encourage & assist with range of motion exercises, Keep skin clean & dry, Monitor reddened areas for continued or increasing reddness, Record extent of impaired skin integrity, Relieve pressure off bony areas, Reposition pt off reddened areas BH Goals/Interventions, Integumentary Yes Integumentary, Problem Start 10/25/2022 23:00 Reviewed plan with, Integumentary Patient Patient Progression, Integumentary Pt progressing according to plan . Evaluation Patient alert and oriented (person, place, time, event). Lung sounds clear on room air, no signs ofrespiratory distress. Normal sinus rhythm on telemetry. Guido patent and draining clear yellow urine. Administered IV zosyn and vancomycin, both tolerated well. Patient reports 8/10 headache, back pain and right leg pain. Administered PRN Tylenol and oxycodone to manage pain. Will continue to monitor and notify the provider with any changes. . Discharge Information Rehabilitation Discharge : Rehab Discharge Index 10/26/2022 9:21 EST Comments on treatment indicated 62 y/o F presenting for progressively worsening RLE swelling, redness, and pain with concerns of failure for outpatient cellulitis treatment. Admitted for sepsis 2/2 nonpurulent cellulitis of RLE with question of septic prosthetic joint in R LE. WBAT Distance pt will ambulate >100 ft c RW Full chart review completed Yes Hospital course see comment Other findings Pt is a moderate complexity evaluationa s circumstances leading to hospitalization impact POC and functional mobility. Plan of care PT Gait training, Transfer training, Therapeutic exercise, Functional Activities, Balance training, Neuromuscular education * Severino Segura MD, Rudy Singh: PERFORM Event Display: Progress Note Hospital Authored Date: Patient: ??JUSTEN QUINTANILLA ? Age:??62 Years?Sex:??Female?:??1960?? Subjective No overnight events ?? Alert, oriented x3 Not in distress Comfortable on room air RLE pain is improving back pain better with tizanidine mild warmth and tenderness + in the RLE possible discharge tomorrow Review of Systems Negative except as above Objective Vital Signs?? Temperature: 98.5 DegF (10/28/22 07:31:00) Temperature Route: Oral (10/28/22 07:31:00) Pulse Rate:??92 bpm??High (10/28/22 07:31:00) Respiratory Rate: 17 br/min (10/28/22 10:47:00) Respiratory Rate: 17 br/min (10/28/22 10:47:00) Respiratory Rate: 18 br/min (10/28/22 10:47:00) Systolic Blood Pressure: 132 mm Hg (10/28/22 09:30:00) Diastolic Blood Pressure: 78 mm Hg (10/28/22 09:30:00) Blood pressure sites: Arm, left (10/28/22 07:31:00) Mean Arterial Pressure: 96 mm Hg (10/28/22 07:31:00) Pulse Pressure: 54 mm Hg (10/28/22 07:31:00) Oxygen Saturation: 100 % (10/28/22 07:31:00) Mode of Delivery (Oxygen): Room air (10/28/22 07:31:00) Early Warning Score: 0 (10/28/22 10:52:15) ? Pain Scores 1 - 10 Pain Scale Score: 10 (23:25) ? Physical Exam Constitutional: Alert, in no distress. Mental Status: Oriented to person, place and time. Head: Normocephalic. Eyes: Pupils are equal, round and reactive to light. Extraocular muscles intact. Respiratory: Clear to auscultation. No wheezing, rales or rhonchi. Cardiovascular: S1 S2 regular. No murmurs, rubs or gallops. Gastrointestinal: Abdomen soft, non-tender, non-distended. Genitourinary: No costovertebral angle tenderness. Neurologic:?? Moves all extremities spontaneously. Sensation intact bilaterally. Skin: No rashes or lesions. No petechiae or purpura.?? Musculoskeletal: RLE pain and swelling+, tenderness+ Assessment/Plan Diagnoses Cellulitis, leg ??(L03.119) SIRS without infection or organ dysfunction ??(R65.10) ?? Assessment:? 62-year-old female with PMH of hypertension, CKD stage III, asthma, chronic anemia, GERD, prior cervical cancer complicated by neurogenic bladder requiring straight cath, chronic low back pain with right radiculopathy, and depression. She is presenting from home for progressively worsening right lower extremity swelling, redness, and pain with concerns of failure for outpatient cellulitis treatment. She is being admitted for sepsis 2/2 nonpurulent cellulitis of RLE with question of septic prosthetic joint in right knee. Ortho consulted- performed R knee joint aspiration-with no fluid aspirate. ? Sepsis 2/2 nonpurulent cellulitis of RLE ?Question of Septic Prosthetic Joint in Right knee ?Hx of total right knee replacement ?Acute on chronic low back pain ?RLE deeply erythematous from ankle to mid thigh, with nonpitting edema and very warm to touch. Failed outpatient treatment of 10 days doxycycline. Given significant distribution of cellulitis, would continue broad antibiotics to cover strep, MSSA, and MRSA for now. No clear area in right knee that would be able to be aspirated. ?Right knee has prosthetic joint and raises concern for joint infection, especially in settingof sepsis with tachycardia, fever, and WBC 19.7 with high ANC 17.8. ?No IV drug use but acute worsening of low back pain raises concern for epidural abscess givensepsis picture and systemic symptoms of malaise, nausea, epigastric pain and other joint pain/myalgias. ? Right lower extremity swelling and warmth better compared to yesterday. WBC trending down ? Plan: ?Continue IV antibiotics for now-possible discharge in 1 to 2 days with p.o. antibiotics ?- Zosyn 3.375 g IV q8h ?- Vancomycin 1 g q24h IV ?- APAP PRN and oxycodone 5 mg q6h PRN severe pain ?-Ultrasound negative for DVT, knee x-ray shows good alignment of the prosthetic joint. ?- CT Lumbar spine with IV contrast does not show any concern for abscess however there is facet arthropathy and disc bulging at L L4-L5 ?-Ortho consulted-attempted R knee joint aspiration-no fluid drained ? Chronic/Stable Conditions ?HTN: Resume lisinopril 5 mg daily ?CKD Stage 3: Cr 0.9 with CrCl 75. Monitor renal function and renally dose as indicated. ?Asthma: Not in acute exacerbation. Albuterol PRN and Breo inpatient (advair at home) ?Chronic Anemia: No transfusion indicated, trend CBC. ?GERD: Home PPI. ?Tobacco use: Nicotine patch daily. ? Code Status: Full Code ?Diet: Regular diet, ?DVT PPX: Heparin ? * Severino Segura MD, Rudy Singh: PERFORM Event Display: Progress Note Hospital Authored Date: Patient: ??JUSTEN QUINTANILLA ? Age:??62 Years?Sex:??Female?:??1960?? Subjective No overnight events ?? Alert, oriented x3 Not in distress Comfortable on room air Continues to have right??lower extremity pain and low back pain Right lower extremity swelling??and??warmth??better compared to yesterday WBC trending down Continue IV antibiotics-possible discharge in 1 to 2 days??with p.o. antibiotics Review of Systems Negative except as above Objective Vital Signs?? Temperature: 99 DegF (10/27/22 07:50:00) Temperature Route: Oral (10/27/22 07:50:00) Pulse Rate: 90 bpm (10/27/22 07:50:00) Respiratory Rate: 18 br/min (10/27/22 09:49:00) Respiratory Rate: 18 br/min (10/27/22 09:49:00) Systolic Blood Pressure:??158 mm Hg??High (10/27/22 13:07:00) Diastolic Blood Pressure: 84 mm Hg (10/27/22 13:07:00) Blood pressure sites: Arm, right (10/27/22 07:50:00) Mean Arterial Pressure: 109 mm Hg (10/27/22 07:50:00) Pulse Pressure: 74 mm Hg (10/27/22 07:50:00) Oxygen Saturation: 96 % (10/26/22 23:20:00) Mode of Delivery (Oxygen): Room air (10/27/22 07:50:00) Early Warning Score: 0 (10/27/22 13:07:34) ? Pain Scores 1 - 10 Pain Scale Score: 9 (10:17) ? Physical Exam Constitutional: Alert, in no distress. Mental Status: Oriented to person, place and time. Head: Normocephalic. Eyes: Pupils are equal, round and reactive to light. Extraocular muscles intact. Respiratory: Clear to auscultation. No wheezing, rales or rhonchi. Cardiovascular: S1 S2 regular. No murmurs, rubs or gallops. Gastrointestinal: Abdomen soft, non-tender, non-distended. Genitourinary: No costovertebral angle tenderness. Neurologic:?? Moves all extremities spontaneously. Sensation intact bilaterally. Skin: No rashes or lesions. No petechiae or purpura.?? Musculoskeletal: RLE pain and swelling+, tenderness+ Assessment/Plan Diagnoses Cellulitis, leg ??(L03.119) SIRS without infection or organ dysfunction ??(R65.10) ?? Assessment:? 62-year-old female with PMH of hypertension, CKD stage III, asthma, chronic anemia, GERD, prior cervical cancer complicated by neurogenic bladder requiring straight cath, chronic low back pain with right radiculopathy, and depression. She is presenting from home for progressively worsening right lower extremity swelling, redness, and pain with concerns of failure for outpatient cellulitis treatment. She is being admitted for sepsis 2/2 nonpurulent cellulitis of RLE with question of septic prosthetic joint in right knee. Ortho consulted- performed R knee joint aspiration-with no fluid aspirate. ?? Sepsis 2/2 nonpurulent cellulitis of RLE ??Question of Septic Prosthetic Joint in Right knee ??Hx of total right knee replacement ??Acute on chronic low back pain ??RLE deeply erythematous from ankle to mid thigh, with nonpitting edema and very warm to touch. Failed outpatient treatment of 10 days doxycycline. Given significant distribution of cellulitis, would continue broad antibiotics to cover strep, MSSA, and MRSA for now. No clear area in right knee that would be able to be aspirated. ?Right knee has prosthetic joint and raises concern for joint infection, especially in setting of sepsis with tachycardia, fever, and WBC 19.7 with high ANC 17.8. ?No IV drug use but acute worsening of low back pain raises concern for epidural abscess given sepsis picture and systemic symptoms of malaise, nausea, epigastric pain and other joint pain/myalgias. ?? Right lower extremity swelling and warmth better compared to yesterday. WBC trending down ? Plan: ? Continue IV antibiotics for now-possible discharge in 1 to 2 days with p.o. antibiotics ?- Zosyn 3.375 g IV q8h ?- Vancomycin 1 g q24h IV ?- APAP PRN and oxycodone 5 mg q6h PRN severe pain ?-Ultrasound negative for DVT, knee x-ray shows good alignment of the prosthetic joint. ?- CT Lumbar spine with IV contrast does not show any concern for abscess however there is facetarthropathy and disc bulging at L L4-L5 ?-Ortho consulted-attempted R knee joint aspiration-no fluid drained ? Chronic/Stable Conditions ?HTN:??Resume??lisinopril 5 mg daily ?CKD Stage 3: Cr 0.9 with CrCl 75. Monitor renal function and renally dose as indicated. ?Asthma: Not in acute exacerbation. Albuterol PRN and Breo inpatient (advair at home) ?Chronic Anemia: No transfusion indicated, trend CBC. ?GERD: Home PPI. ?Tobacco use: Nicotine patch daily. ? Code Status: Full Code ?Diet: Regular diet, ?DVT PPX: Heparin ? XR Knee - right 1 or 2 Views * Susan , CIS S: Javier Islas MD: VERIFY Event Display: Result: Authored Date: [id number] PROCEDURE: Knee 1 or 2 Views Right CLINICAL INDICATION: 62 years old Female with soft tissue swelling, pain at the RIGHT knee. Reason:Infection; cellulitis with concern of prosthetic joint infection; Clinical Question(s): Osteomyelitis; prosthetic joint infection. TECHNIQUE: AP and crosstable lateral views of the RIGHT knee are obtained. COMPARISONS: RIGHT knee December 10, 2020. FINDINGS: A total RIGHT knee replacement prosthesis with metallic cemented femoral and tibial components and lucent patellar component again noted which appears well aligned. No periosteal reaction or erosion to suggest osteomyelitis. Mild to moderate subcutaneous fat stranding diffusely suggesting subcutaneous edema. IMPRESSION: 1. No evidence of acute bony injuries. No radiographic evidence of osteomyelitis. 2. Subcutaneous edema. 3. Total knee replacement prosthesis in good alignment. Thank you for allowing me to participate in the care of this patient. WSN: [id number] Ordering Physician: Vandana Paulino Dictated By: Javier Fuentes MD Dictated Date/Time: 10/24/22 10:44 p Reviewed By: Javier Fuentes MD Signed By: Javier uFentes MD Signed Date/Time: 10/24/22 10:44 pm Transcribed By: CSCallie Transcribed Date/Time: 10/24/22 10:[address] Lumbar spine W contrast IV * Susan , CIS S: TRANSCYuriy Proctor MD: VERIFY Event Display: Result: Authored Date: [id number] CT Lumbar Spine W/ Contrast Reason: Other:; Sepsis with acute on chronic low back pain; Clinical Question(s): Epidural Empyema;Order Comment: CLINICAL QUESTION: Epidural Empyema TECHNIQUE: Thin section axial images were acquired through the lumbar spine following IV contrast, 100 mL Omnipaque 300. Bone and soft tissue algorithms were reconstructed along with coronal and sagittal reformats. Weight-based protocol using automatic tube modulation was used to optimize exposure p arameters. CTDIvol Body: 28.01 mGy, DLP Body: 798 mGy*cm. COMPARISON: CT abdomen and pelvis 09/06/2019 which includes the lumbar spine. FINDINGS: Stage Producer View Findings, Lines and Tubes: None. Spine: Vertebral body heights are maintained. No endplate erosive changes. There is no CT evidence for discitis. No bone destruction to suggest osteomyelitis. No lumbar fracture. Mild loss of disc space height throughout the lumbar spine. Hypertrophic facet arthropathy at L4-5 and L5-S1 contributing to bony foraminal narrowing. Evaluation of intraspinal contents is limited with CT. No abnormal enhancement within the spinal canal or epidural space to indicate abscess or infection.Epidural fat is intact posteriorly at all levels without evidence for effacement. There is a diffuse generative disc bulge at the L4-5 level which combines with facet arthropathy and ligamentum flavum thickening tube is a short segment of mild central canal stenosis which appears similar to the previous study. Soft tissues: No acute abnormality in the paravertebral soft tissues. No psoas abscess. No retroperitoneal edema or abscess. The visualized aorta shows no acute abnormality. No hydronephrosis or pyelonephritis. IMPRESSION: No CT evidence for spine infection. No evidence for discitis-osteomyelitis. No abnormal intraspinal enhancement or CT evidence for spinal epidural abscess. Chronic degenerative disc bulging at L4-5 resulting in mild central canal stenosis. Degenerative facet arthropathy at L4-5 and L5-S1 contributing to foraminal narrowing.. WSN: [id number] Ordering Physician: Vandana Paulino Dictated By: Yuriy Haskins MD Dictated Date/Time: 10/24/22 11:40 p Reviewed By: Yuriy Haskins MD Signed By: Yuriy Haskins MD Signed Date/Time: 10/24/22 11:40 pm Transcribed By: W[place] Transcribed Date/Time: 10/24/22 11:34 pm US.doppler Lower extremity vein - bilateral * KEVIN Davis S: TRANSCRIBE Yuriy Haskins MD: VERIFY Event Display: Result: Authored Date: [id number] US Doppler Ext Lower Venous Bilat Reason: Other:; Pain in limb; Clinical Question(s): Thrombosis; Order Comment: 10 24 2022 17:49:14 EST per rn ruling out beg bugs at this time....will check in later to see if pt was cleared or not. KF COMPARISON: None IMAGING TECHNIQUE: Ultrasound of the veins from the groin through the calf was performed using grayscale, color, and spectral Doppler ultrasound assessing for complete compressibility and normal flowcharacteristics. FINDINGS: RIGHT LOWER EXTREMITY: Common femoral vein: Patent. No thrombosis. Femoral vein: Patent. No thrombosis. Popliteal vein: Patent. No thrombosis. Gastrocnemius veins: The visualized portions are patent without evidence of thrombosis. Peroneal veins: The visualized portions are patent without evidence of thrombosis. Posterior tibial veins: The visualized portions are patent without evidence of thrombosis. LEFT LOWER EXTREMITY: Common femoral vein: Patent. No thrombosis. Femoral vein: Patent. No thrombosis. Popliteal vein: Patent. No thrombosis. Gastrocnemius veins: The visualized portions are patent without evidence of thrombosis. Peroneal veins: The visualized portions are patent without evidence of thrombosis. Posterior tibial veins: The visualized portions are patent without evidence of thrombosis. OTHER FINDINGS: There is mild calf edema. IMPRESSION: No evidence of deep venous thrombosis. WSN: [id number] Ordering Physician: Nellie España Dictated By: Yuriy Haskins MD Dictated Date/Time: 10/24/22 9:15 pm Reviewed By: Yuriy Haskins MD Signed By: Yuriy Haskins MD Signed Date/Time: 10/24/22 9:15 pm Transcribed By: WILTON Transcribed Date/Time: 10/24/22 9:13 pm Patient Care team information Care Team Personnel Name: Rolf Zhang MD Position: [facility] Outreach Member Role: PCP Address: Address: [address] [place] [address] [place] [address]- [place] Name: Lilly Nick RN Position: [facility] AMB Nurse Member Role: Primary Care Nurse Name: Kenzie Bran RN Position: [facility] RN Member Role: Primary Care Nurse Address: Address: [address] [place] [address]- Name: Fariha CARABALLO Attending Position: [facility] ED Medicine MD Name: Kristi Michel Position: [facility] ED RN W/OE and Tasks Member Role: Patient Care Provider Name: Mattie Walton RN Position: [facility] ED RN W/OE and Tasks Member Role: Patient Care Provider Name: Jovanni Rodriguez Position: [facility] ED TA [facility] Member Role: Patient Care Provider Care Team Related Persons Name: VENANCIOIRVIN Address: [address] [address]
--- OUTSIDE RECORDS SUMMARY | 2023-04-13 16:14 | XMS_ITS | Continuity of Care Document ---
Author Name Unknown Organization [facility] Address [address] [place] [address]- Care Team Providers Care Family Resource Coordinator Name Role Phone Rolf Zhang MD Primary Care Physician [place] [facility] [place](s): 12/12/22 - 01/11/23 [facility] [address] [place] [id number] Attending Physician: Admtr, Ar8 Admitting Physician: Admtr, [...] EDT, Compound Start Date: 05/25/20 Status: Ordered PriLOSEC OTC 20 mg oral delayed release tablet 1 tablet = 20 mg, By Mouth, Daily, 0 Refills, Maintenance Start Date: 10/02/13 Status: Ordered tiZANidine 2 mg oral tablet 2 mg, By Mouth, 3 times a day, PRN, # 30 tablet, Refills 0, Tot. Refills 0, Maintenance, Spasm, 11/12/22 11:26:00 EST, Route to Pharmacy Electronically, [facility]/pharmacy #[id number], Partial fill upon patient request if the [...] Team Personnel Name: Rolf Zhang MD Position: [facility] Outreach Member Role: PCP Address: Address: [address] [place] [address] [place] [address]- Name: Lilly Nick RN Position: [facility] OB RN Member Role: Primary Care Nurse Name: Kenzie Bran RN Position: S RN Member Role: Primary Care Nurse Address: Address: [address] [place] [address]- Care Team Related Persons Name: CRAFTCRISTINAEL Address: home [address] [place] [address]
--- OUTSIDE RECORDS SUMMARY | 2023-04-13 16:14 | XMS_ITS | Continuity of Care Document ---
Author Name Unknown Organization [facility] Address [address] [place] [address]- Care Team Providers Care Bottom Cager Name Role Phone Rolf Zhang MD Primary Care Physician Encounter [facility] [place] Date(s): 02/09/23 - 03/22/23 [facility] [address] [place] [id number] Attending Physician: Ronaldo Pelayo MD Admitting Physician: Ronaldo Pelayo MD Referring Physician: Rolf Zhang MD Allergies, [...] 2 Refills, Maintenance, 03/15/23 17:02:00 EDT, Tablet, [facility], Partial fill upon patient request if the prescription is for a schedule II opioid drug., 162, cm, 02/08/23... Start Date: 03/15/23 Status: Ordered penicillin V potassium 250 mg oral tablet 1 tablet = 250 mg, By Mouth, 2 times a day, # 60 tablet, 0 Refills, Maintenance, 02/11/23 9:21:00 EDT, Tablet, [id number], Partial fill upon patient request [...] 11/12/22 11:26:00 EST, Route to Pharmacy Electronically, [facility]/pharmacy #[id number], Partial fill upon patient request if the [...] Team Personnel Name: Nanci Omalley RN Position: [facility] RN Member Role: Primary Care Nurse Name: Rolf Zhang MD Position: [facility] Outreach Member Role: PCP Address: Address: [address] [place] [address] [place] [address]- Name: uJan C Wells RN Position: [facility] RN Member Role: Primary Care Nurse Name: Lilly Nick RN Position: [facility] OB RN Member Role: Primary Care Nurse Name: Kenzie Bran RN Position: [facility] RN Member Role: Primary Care Nurse Address: Address: [address] [place] [address]- Care Team Related Persons Name: IRVIN CRAFT Address: home [address] [place] [address]
--- OUTSIDE RECORDS SUMMARY | 2023-04-13 16:15 | XMS_ITS | Continuity of Care Document ---
Author Name Unknown Organization [facility] ter Address [address] [place] [address]- Care Team Providers Care Oncology Radiation Physician Name Role Phone Rolf Zhang MD Primary Care Physician [phone] [place] [facility] [place](s): 12/06/22 - 12/07/[address] [address]- Discharge Disposition: A-D/C Walkout Attending Physician: Ade Crouch MD Admitting Physician: Ade Crouch MD Referring Physician: Not on Staff, Referring [...] Mouth, Daily, 0 Refills, Maintenance Start Date: 1/16/14 Status: Ordered tiZANidine 2 mg oral tablet 2 mg, By Mouth, 3 times a day, PRN, # 30 tablet, Refills 0, Tot. Refills 0, Maintenance, Spasm, 11/12/22 11:26:00 EST, Route to Pharmacy Electronically, [facility]/pharmacy #[id number], Partial fill upon patient request if the [...] pain Confirmed Active 1status post hysterectomy 1995 Vital Signs Most recent to oldest [Reference Range]: 1 2 Weight 78 kg (12/06/22 7:34 PM) Oxygen Saturation [94-100 %] 100 % (12/06/22 9:04 PM) 100 % (12/06/22 6:47 PM) Pulse Rate [55-90 bpm] 87 bpm (12/06/22 9:04 PM) 85 bpm (12/06/22 6:47 PM) Blood Pressure [90-138/55-84 mm Hg] 143/ 82mm Hg *H* (12/06/22 9:04 PM) 145/85mm Hg *H* (12/06/22 6:47 PM) Respiratory Rate [16-30 br/min] 20 br/mi n (12/06/22 6:47 PM) Temperature [96.8-100.4 DegF] 98.7 DegF (12/06/22 9:04 PM) 98.8 DegF (12/06/22 6:47 PM) Mode of Delivery (Oxygen) Room air (12/06/22 9:04 PM) Room air (12/06/22 6:47 PM) Blood pressure sites Arm, right (12/06/22 9:04 PM) Arm, right (12/06/22 6:47 PM) Temperature Route Oral (12/06/22 9:04 PM) Oral (12/06/22 6:47 PM) Dry Weight 78 kg (12/06/22 7:34 PM) Social History Social History Type Response Tobacco Use: 4 or less cigar ettes(less than 1/4 pack)/day in last 30 days. Sex EKG study * Event Display: EKG Authored Date: * Event Display: ECG 12-Lead Authored Date: Please click on pdf link to open report * Event Display: ECG 12-Lead Authored Date: Ventricular Rate: 78 BPM Atrial Rate: 78 BPM P-R Interval: 158 ms QRS Duration: 92 ms Q-T Interval: 362 ms QTC Calculation(Bazett): 412 ms P Bristol: 53 degrees R Bristol: -8 degrees T Bristol: 21 degrees Normal sinus rhythm Minimal voltage criteria for LVH, may be normal variant Borderline ECG When compared with ECG of 24-OCT-2022 17:17, No significant change was found Confirmed by ANA SOUSA MD ([id number]) on 12/07/2022 8:58:28 AM [place]: ANA SOUSA MD Patient Care team information Care Team Personnel Name: Rolf Zhang MD Position: [facility] Outreach Member Role: PCP Address: Address: [address] [place] [address] [place] [address]- Name: Lilly Nick RN Position: [facility] OB RN Member Role: Primary Care Nurse Name: Kenzie Barn RN Position: [facility] RN Member Role: Primary Care Nurse Address: Address: [address] [place] [address]- Name: Trupti Monroe RN Position: [facility] ED RN W/OE and Tasks Member Role: Patient Care Provider Care Team Related Persons Name: IRVIN CRAFT Address: home [address] [place] [address]
[2023-04-13] MEDS: HYDROcodone Bit/Acetam 5/325 TABLET 1 TAB PO (17:29)
[2023-04-13] MEDS: LORazepam 1 MG TABLET PO (17:30)
[2023-04-13] MEDS: predniSONE 20 MG TABLET PO (17:30)
[2023-04-13] MEDS: cephALEXin 500 MG CAPSULE PO (17:30)
== END 2023-04-13 17:38 | disposition home or self-care (01) ==
PROVIDERS: Emergency Provider Emergency Medicine Emergency Medical Services; PCP General Practice
DX: L03.113 Cellulitis of right upper limb (principal); F17.210 Nicotine dependence, cigarettes, uncomplicated; Z71.6 Tobacco abuse counseling; Z79.899 Other long term (current) drug therapy
CPT/HCPCS: 99283

== ENCOUNTER 2023-05-07 21:30 | Inpatient (IN) | payer MEDICAID, SELFPAY ==
--- NOTE | ~2023-05-07 | CT_ITS ---
EXAMINATION: CT FEMUR WITH CONTRAST, RIGHT CLINICAL INFORMATION: Right thigh/leg redness, question necrotizing fasciitis COMPARISON: None available. TECHNIQUE: 85 mL Omnipaque 350 intravenous contrast was utilized. Multidetector helical imaging was performed through the right femur. Coronal and sagittal reformatted images were created. This CT examination was performed using dose optimization techniques as appropriate, variously including the following: *Automated exposure control *Adjustment of mA and/or kV according to patient size (this includes techniques or standardized protocols for targeted exams where dose is matched to indication/reason for exam; i.e. extremities or head) *Use of iterative reconstruction technique DLP: 285 mGy-cm FINDINGS: Alignment across the hip is anatomic with mild joint space narrowing and degenerative change. Status post total knee arthroplasty, with hardware components in anatomic alignment. No evidence of acute fracture. No soft tissue gas identified. There is mild subcutaneous stranding/inflammation in the medial proximal right thigh. No focal collection is seen. Vasculature appears unremarkable. Nonspecific mildly prominent right inguinal lymph node noted, which may be reactive. CT/CT femur RT w IV con IMPRESSION: No specific findings of necrotizing fasciitis. Mild subcutaneous stranding/inflammation in the medial proximal right thigh.
--- NOTE | ~2023-05-07 | US_ITS ---
EXAMINATION: US VENOUS ULTRASOUND WITH DOPPLER LOWER EXTREMITY, RIGHT CLINICAL INFORMATION: Right lower extremity swelling COMPARISON: Right lower extremity venous ultrasound 10/11/2022 TECHNIQUE: Ultrasound of the deep veins is performed from the hip to the calf with compression sonography and color and pulse Doppler assessment. Spectral analysis with color-flow imaging is performed. FINDINGS: There is normal venous compression and respiratory variation and augmented flow. The visualized common femoral vein, superficial femoral vein, profunda femoral vein, popliteal vein, and the trifurcation region shows no evidence of deep venous thrombosis. The peroneal vein was not visualized although at the time of the 10/11/2022 study this could be seen. Posterior tibial veins appear normal. There is no significant popliteal fossa cyst. The left common femoral vein appears normal. If the patient's symptoms persist, followup ultrasound in 5 days 7 days might be of value to exclude proximal propagation from a non-visualized calf vein. US/US venous duplex LE RT IMPRESSION: No DVT demonstrated in the right lower extremity. The peroneal vein could not be visualized although it was visualized this past September.
[2023-05-07 21:46] VITALS: BP 140/71; PULSE 127; RESP 18; TEMP 38.1; O2SAT 97; BMI 31.5
[2023-05-07 21:52] VITALS: BP 174/90; PULSE 132; O2SAT 97
[2023-05-07 22:00] VITALS: BP 109/61; PULSE 114; RESP 18; O2SAT 97
[2023-05-07 22:24] LABS: Basophils Percent Auto 0.2 % (0-2); Eosinophils Percent Auto 0.1 % (0-4); Hematocrit 33.2 % (37.0-47.0); Hemoglobin 10.4 g/dl (12.0-16.0); Imm Gran Abs Auto 0.07 X10*3/uL (0.00-0.03); Imm Gran Pct Auto 0.5 % (0.0-0.4); Lymphocytes Absolute Auto 0.7 X10*3/uL (1.2-4.9); MANUAL DIFF FLAG SCAN; Mean Corpuscular HGB Conc 31.3 g/dl (31.0-35.0); Mean Corpuscular Hemoglobin 25.1 pg (27.0-33.0); Mean Corpuscular Volume 80.2 fL (80.0-98.0); Mean Platelet Volume 10.8 fL (9.4-12.3); Monocytes Absolute Auto 0.3 X10*3/uL (0.1-1.2); Monocytes Percent Auto 2.1 % (2-11); Neutrophils Absolute Auto 12.5 x10*3/uL (2.0-8.3); Neutrophils Percent Auto 92.1 % (45-73); Platelet Count 234 X10*3/uL (160-400); Red Blood Count 4.14 X10*6/uL (4.20-5.50); Red Cell Distribution Width 15.2 % (11.0-16.0); SCAN SMEAR FLAG 1; White Blood Count 13.5 X10*3/uL (4.8-10.8)
--- OUTSIDE RECORDS SUMMARY | 2023-05-07 22:25 | XMS_ITS | Continuity of Care Document ---
Author Name Unknown Organization [facility] Address [address] [place] [address]- Care Team Providers Care Environmental Lead Name Role Phone Rolf Zhang MD Primary Care Physician Encounter [facility] [place] Date(s): 03/15/23 - 04/14/23 [facility] [address] [place] [id number] Allergies, Adverse Reactions, Alerts Substance Reaction Severity [...] Refills, Maintenance, 02/08/23 9:17:00 EDT, REC Powder, [facility]/pharmacy #[id number], Partial fill upon patient request if the prescription is for a schedule II opioid drug., 162, cm, 02/08/23 8:02:00 EDT, Height, 87.4,... Start Date: 02/08/23 Status: Ordered MiraLax oral powder for reconstitution = 17 Gm, By Mouth, Daily, PRN Constipation, dissolve in water before taking, # 255 Gm, 0 Refills, Maintenance, 02/08/23 9:25:00 EDT, REC Powder, [facility]/pharmacy #[id number], Partial fill upon patient request if the prescription is for a schedule II opioid drug... Start Date: 02/08/23 Status: Ordered penicillin V potassium 250 mg oral tablet 1 tablet = 250 mg, By Mouth, 2 times a day, # 60 tablet, 2 Refills, Maintenance, 03/15/23 17:02:00 EDT, Tablet, [facility], Partial fill upon patient request if the prescription is for a schedule II opioid drug., 162, cm, 02/08/23... Start Date: 03/15/23 Status: Ordered penicillin V potassium 250 mg oral tablet 1 tablet = 250 mg, By Mouth, 2 times a day, # 60 tablet, 0 Refills, Maintenance, 02/11/23 9:21:00 EDT, Tablet, [facility]/pharmacy #[id number], Partial fill upon patient request [...] 11/12/22 11:26:00 EST, Route to Pharmacy Electronically, [facility]/pharmacy #[id number], Partial fill upon patient request [...] Care Nurse Name: Rolf Zhang MD Position: [facility] Outreach Member Role: PCP Address: Address: [address] [place] [address] [place] [address]- Name: Juan C Wells RN Position: S RN Member Role: Primary Care Nurse Name: Lilly Nick RN Position: [facility] OB RN Member Role: Primary Care Nurse Name: Kenzie Bran RN Position: S RN Member Role: Primary Care Nurse Address: Address: [address] [place] [address]- Care Team Related Persons Name: IRVIN CRAFT Address: [address] [address]
--- OUTSIDE RECORDS SUMMARY | 2023-05-07 22:26 | XMS_ITS | Continuity of Care Document ---
Author Name Unknown Organization [facility] Address [address] [place] [address]- Care Team Providers Care Manager Business Operations Name Role Phone Not on Staff, PCP Primary Care Physician Unavail able Encounter [facility] [place] Date(s): 03/16/23 - 03/17/[address] [address]- Discharge Disposition: A-D/C Walkout Attending Physician: Not on Staff, Attending MD Admitting Physician: Not on Staff, Admitting MD Referring Physician: Not on Staff, Referring MD Allergies, Adverse Reactions, Alerts Substance Reaction Severity Status Motrin Active BuSpar Active Problem List Condition Confirmation Course Effective Dates Status [facility] atus Informant Obese class I Confirmed Active Results Radiology Reports * Exam Date Time Procedure Performing Provider Status 03/17/23 1:11 AM Knee 1 or 2 Views Right TurnerKarinaa Anne Mariely; Auth (Verified) Notes: (Knee 1 or 2 Views Right) Reason For Exam: with Pain;Trauma RESULT: Knee 1 or 2 Views Right Knee 1 or 2 Views Right, 2 views Hx of Present Illness: swelling to R knee and hip area; Reason: Trauma; with Pain; Clinical Question(s): Fracture; Special Instructions: This is a protocol film and radiologist should call any findings to the Charge Nurse COMPARISON: None. FINDINGS: Status post total knee arthroplasty with the arthroplastic hardware well seated and well centered. There is no evidence of acute fracture or dislocation. The bones appear demineralized. Soft tissues are unremarkable. IMPRESSION: Status post total knee arthroplasty without evidence of acute pathology. WSN: [id number] Ordering Physician: Oswaldo Mast Dictated By: Iris Anguiano MD Dictated Date/Time: 03/17/23 9:27 am Reviewed By: Iris Anguiano MD Signed By: Iris Anguiano MD Signed Date/Time: 03/17/23 9:27 am Transcribed By: WIL[place] Transcribed Date/Time: 03/17/23 9:25 am Vital Signs Most recent to oldest [Reference Range]: 1 2 Height 163 cm (03/16/23 10:40 PM) 163 cm (03/16/23 10:24 PM) Weight 85 kg (03/16/23 10:40 PM) 85 kg (03/16/23 10:24 PM) Oxygen Saturation [94-100 %] 98 % (03/16/23 11:59 PM) 95 % (03/16/23 10:24 PM) Pulse Rate [55-90 bpm] 66 bpm (03/16/23 11:59 PM) 102 bpm *H* (03/16/23 10:24 PM) Body Mass Index [18.5-24.99 kg/m2] 31.99 kg/m2 *>HHI* (03/16/23 10:24 PM) Blood Pressure [90-138/55-84 mm Hg] 166/ 99mm Hg *H* (03/16/23 11:59 PM) 158/97mm Hg *H* (03/16/23 10:24 PM) Respiratory Rate [16-30 br/min] 18 br/mi n (03/16/23 10:24 PM) Temperature [96.8-100.4 DegF] 99.3 DegF (03/16/23 11:59 PM) 99.1 DegF (03/16/23 10:24 PM) Mode of Delivery (Oxygen) Room air (03/16/23 11:59 PM) Room air (03/16/23 10:24 PM) Blood pressure sites Arm, right (03/16/23 11:59 PM) Arm, right (03/16/23 10:24 PM) Temperature Route Oral (03/16/23 11:59 PM) Oral (03/16/23 10:24 PM) Dry Weight 85 kg (03/16/23 10:40 PM) 85 kg (03/16/23 10:24 PM) Patient Care team information Care Team Personnel Name: Not on Staff, PCP Position: [facility] Physician (General Medicine) Member Role: PCP
[2023-05-07] MEDS: Piperacillin Sodium/Tazobactam 3.375 GM in 0.9 % Sodium Chloride 50 ML IV (22:28)
[2023-05-07 22:30] LABS: Lactic Acid 1.4 mmol/L (0.5-2.0)
[2023-05-07 22:34] LABS: Alanine Aminotransferase 20 U/L (0-31); Alkaline Phosphatase 96 U/L (39-117); Anion Gap 15 (12-20); Aspartate Amino Transferase 18 U/L (5-31); Bilirubin Total 0.3 mg/dL (0.0-1.0); Blood Urea Nitrogen 26 mg/dL (9-16); Calcium 9.9 mg/dL (8.4-10.2); Carbon Dioxide 21 mmol/L (22-29); Chloride 107 mmol/L (96-108); Estimated Glomerular Filt Rate 59; Glucose Random 106 mg/dL (60-115); Potassium 3.6 mmol/L (3.3-5.1); Sodium 139 mmol/L (135-145); Total Protein 7.4 g/dL (6.5-8.0)
--- NOTE | 2023-05-07 22:37 | PC.NURSE ---
lab obtained, 20g Iv placed in L-AC- zosyn infusing per order- US taken, pt awaiting CT scan, lab results
[2023-05-07 22:42] LABS: SLIDE REVIEW VERIFIED
--- NOTE | 2023-05-07 23:04 | PC.NURSE ---
zosyn infused- pt currently in CT- lactic 1.6- pt awaiting imaging result, vss- report given to Freddie RN
[2023-05-07 23:12] LABS: Erythrocyte Sedimentation Rate 38 MM/HR (0-20)
[2023-05-07] MEDS: iohexoL 350 MG/ML 100 ML INFUS..BTL 85 ML IV (23:15)
[2023-05-07] MEDS: Morphine Sulfate 4 MG/ML CARTRIDGE IVPUSH (23:16)
--- NOTE | 2023-05-07 23:16 | ED.GENADULT ---
HPI - General Adult General Chief complaint: Extremity Injury, Lower Stated complaint: R LEG EDEMA SWELLING Time Seen by Provider: 05/07/23 21:42 Source: patient Mode of arrival: ambulatory Limitations: no limitations History of Present Illness HPI narrative: 62-year-old female history of recurrent cellulitis presents to the ED for right lower extremity swelling from upper thigh to her feet. Patient states this occurred today. Patient denies any chest pain or shortness of breath. Patient states being febrile and having chills. Related Data Home Medications Medication Instructions Recorded Confirmed acetaminophen 650 mg 2 tab PO Q8H PRN pain 10/11/22 05/08/23 tablet,extended release docusate sodium 100 mg capsule 1 cap PO DAILY constipation 10/11/22 05/08/23 lisinopril 40 mg tablet 1 tab PO DAILY 10/11/22 05/08/23 metoprolol succinate 25 mg 1 tab PO DAILY 10/11/22 05/08/23 tablet,extended release 24 hr nitroglycerin 0.4 mg sublingual 1 tab sublingual Q5M PRN Angina 10/11/22 05/08/23 tablet sumatriptan succinate 25 mg tablet 25 mg PO DAILY PRN Migraine 10/11/22 05/08/23 Headache celecoxib 50 mg capsule 50 mg PO DAILY 05/08/23 05/08/23 duloxetine 30 mg capsule,delayed 30 mg PO DAILY 05/08/23 05/08/23 release multivitamin-ferrous 1 tab PO DAILY 05/08/23 05/08/23 fumarate-folic acid 18 mg-400 mcg tablet (Certavite-Antioxidant) polyethylene glycol 3350 17 17 g PO DAILY 05/08/23 05/08/23 gram/dose oral powder trazodone 50 mg tablet 50 mg PO BEDTIME 05/08/23 05/08/23 white petrolatum 42 % topical 1 appl topical DAILY PRN Dry Skin 05/08/23 05/08/23 ointment Previous Rx's Medication Instructions Recorded albuterol sulfate 90 mcg/actuation 2 puff inhalation Q4-6H PRN 08/03/20 aerosol inhaler (ProAir HFA) shortness of breath or wheezing 30 days #8.5 grams ondansetron 4 mg disintegrating 4 mg PO Q8H PRN nausea and 10/13/22 tablet vomiting #10 tabs penicillin V potassium 250 mg 250 mg PO BID 30 days #60 tabs 12/01/22 tablet Allergies Allergy/AdvReac Type Severity Reaction Status Date / Time buspirone [From BuSpar] Allergy Mild Tongue Verified 12/07/22 09:21 Swelling, dizziness ibuprofen [From Motrin] AdvReac Mild Rash, HTN Verified 12/07/22 09:21 Review of Systems Review of Systems: Right lower extremity redness Yes all other systems are reviewed and are negative [facility] Past Medical History Medical History Anemia Anemia Arthritis Asthma Back pain with right-sided radiculopathy Breast pain Cervical cancer Chronic kidney disease, stage 3 Depression Dyspnea on exertion Fibromyalgia, primary History of cervical cancer HTN (hypertension) Hypertension Migraines Neurogenic bladder, NOS Recurrent cellulitis of lower extremity Surgical History H/O: hysterectomy Social History Social History Household Members: Family Housing: House Do you presently have visiting nurse or other home services: No Alcohol intake: unknown Patient Tobacco Use Status: Never used Tobacco Tobacco use type: Cigarette Cigarettes Per Day: 4 Smoked in Last 30 Days: Yes Advance Directives: No Advance Directives Information Provided: No Advance Directives Date on File: 12/05/16 Nutrition Risks: No Nutritional Risk service: No Current occupational status: unemployed Physical Exam ED Vital Signs: Vital Signs - 24 hr 05/07/23 21:46 05/07/23 22:00 Temperature 100.5 F H Pulse Rate 127 H 114 H Respiratory Rate 18 18 Blood Pressure 140/71 H 109/61 Pulse Oximetry 97 97 Oxygen Delivery Method Room Air Room Air BMI result Body Mass Index 31.5 Const General: cooperative, healthy appearing, comfortable, no acute distress, well developed, alert, awake and Physically active Orientation/consciousness: oriented to person, oriented to place, oriented to time and patient oriented x3 HENMT Head: Yes normal to inspection, Yes No palpable skull fracture present, Yes normocephalic, Yes atraumatic and No abrasion Eyes General: appearance normal, both eyes and all related structures Neck Neck: Yes normal visual inspection, Yes full ROM, Yes no lymphadenopathy, Yes no meningeal signs, Yes trachea midline, Yes supple, No anterior neck swelling and No tender Chest Chest palpation & inspection: normal inspection of the chest and normal palpation of entire chest wall Resp Effort & Inspection: normal respiratory effort and able to speak in complete sentences Auscultation: clear to auscultation bilaterally Cardio Jugular venous distension: no JVD Heart sounds: S1 normal heart sound present and S2 normal heart sound present GI Inspection: Yes normal to inspection and No abdominal wall ecchymosis Palpation (GI): Soft to palpation, not firm, nontender, no guarding and not rigid General: No CVA tenderness and Yes no CVA tenderness Back/Spine/Pelvis Back: no CVA tenderness, No CVA tenderness and No back tenderness Skin Other: Right lower extremity erythema from thighs all way to foot. Neuro General: oriented to person, oriented to place, oriented to time, patient oriented x3, gait normal, tone normal, moves all extremities, Normal light touch and pain sensation, no meningeal signs, no focal motor deficits, CN's II-XI intact bilaterally and normal sensation to monofilament Extrem Other: Right lower extremity swelling from thigh all the way to foot warm and hot. Vascular motor/neuro exam intact Psych Appearance: grossly normal, well kempt and not disheveled Medications Administered Generic Name Dose Route Start Last Admin Trade Name Freq PRN Reason Stop Dose Admin Acetaminophen 650 mg 05/08/23 01:21 05/08/23 13:31 Acetaminophen 325 Mg Tablet PO 650 mg Q6H PRN Administration Pain, Mild (Pain Scale 1-3) Docusate Sodium 100 mg 05/08/23 09:00 05/08/23 08:58 Docusate Sodium 100 Mg Capsule PO 100 mg DAILY HAILEY Administration Duloxetine HCl 30 mg 05/08/23 09:15 05/08/23 10:00 Duloxetine Hcl 30 Mg Capsule.Dr PO 30 mg DAILY HAILEY Administration Cefazolin Sodium/Dextrose 2 gm in 50 mls @ 100 mls/hr 05/08/23 02:00 05/08/23 11:22 Ancef IV Infused Q8H HAILEY Infusion Lisinopril 40 mg 05/08/23 09:00 05/08/23 08:58 Lisinopril 40 Mg Tablet PO Not Given DAILY HAILEY Protocol Metoprolol Succinate 25 mg 05/08/23 09:00 05/08/23 08:58 Metoprolol Succinate Er 25 Mg Tab.Er.24h PO Not Given DAILY HAILEY Protocol Multivitamins/Vitamin C 1 tab 05/08/23 09:00 05/08/23 08:58 Multivitamin Tablet PO 1 tab DAILY HAILEY Administration Sodium Chloride 3 ml 05/08/23 08:00 05/08/23 16:11 0.9 % Sodium Chloride Flush 3 Ml Syringe IVFLUSH 3 ml QSHIFT HAILEY Administration Discontinued Medications Generic Name Dose Route Start Last Admin Trade Name Zonia PRN Reason Stop Dose Admin Acetaminophen 975 mg 05/07/23 23:29 05/07/23 23:47 Acetaminophen 325 Mg Tablet PO 05/07/23 23:30 975 mg ONCE ONE Administration Enoxaparin Sodium 40 mg 05/08/23 02:00 05/08/23 02:09 Enoxaparin Sodium 40 Mg/0.4 Ml Syringe SUBCUT 05/08/23 02:01 40 mg Q24H HAILEY Administration Piperacillin Sod/Tazobactam 50 mls @ 100 mls/hr 05/07/23 21:46 05/07/23 23:03 Sod 3.375 gm/ Sodium Chloride IV 05/07/23 22:15 Infused ONCE ONE Infusion Sodium Chloride 1,000 mls @ 999 mls/hr 05/08/23 00:22 05/08/23 01:37 Ns IV 05/08/23 01:22 Infused .Q1H1M STA Infusion Iohexol 85 ml 05/07/23 23:14 05/07/23 23:15 Iohexol 350 Mg/Ml 100 Ml Infus..Btl IV 05/07/23 23:15 85 ml ONCE ONE Administration Morphine Sulfate 4 mg 05/07/23 22:42 05/07/23 23:16 Morphine Sulfate 4 Mg/Ml Cartridge IVPUSH 05/07/23 22:43 4 mg ONCE ONE Administration Protocol Medical Decision Making Medical Decision Making MDM Narrative: 62-year-old female presents to the ED with recurrent cellulitis. Patient states today Right sided redness from thigh all way to foot with pain. Patient febrile. Patient given antibiotics for cellulitis and ultrasound ordered to rule out DVT. Patient sent for CT scan to rule out necrotizing fasciitis. Patient started on Zosyn. 2:25am: Patient admitted to the hospital for cellulitis. Ultrasound negative for DVT. CT scan negative for necrotizing fasciitis. Differential Diagnosis Differential Diagnoses: The differential diagnosis associated with the presentation includes (DVT, cellulitis, necrotizing fasciitis, lymphangitis,) Admission/Observation Consideration of admission/observation: Escalation of care including admission/observation considered Consult Healthcare Provider Management of the patient was discussed with: Anthropology Faculty Member (Dr. Rivera Hospitalist) Lab Data MDM Lab Attestation statement: I reviewed the patient's lab results. 05/07/23 22:07 05/07/23 22:07 Labs: Lab Results 05/07/23 05/07/23 05/07/23 Range/Units 22:07 22:07 22:07 WBC 13.5 H (4.8-10.8) X10*3/uL RBC 4.14 L (4.20-5.50) X10*6/uL Hgb 10.4 L (12.0-16.0) g/dl Hct 33.2 L (37.0-47.0) % MCV 80.2 (80.0-98.0) fL MCH 25.1 L (27.0-33.0) pg MCHC 31.3 (31.0-35.0) g/dl RDW 15.2 (11.0-16.0) % Plt Count 234 (160-400) X10*3/uL MPV 10.8 (9.4-12.3) fL Immature Gran % (Auto) 0.5 H (0.0-0.4) % Neut % (Auto) 92.1 H (45-73) % Lymph % (Auto) 5.0 L (20-40) % [place] % (Auto) 2.1 (2-11) % Eos % (Auto) 0.1 (0-4) % Baso % (Auto) 0.2 (0-2) % Lymph # (Auto) 0.7 L (1.2-4.9) X10*3/uL [place] # (Auto) 0.3 (0.1-1.2) X10*3/uL Eos # (Auto) 0.0 (0.0-0.4) X10*3/uL Baso # (Auto) 0.0 (0.0-0.2) X10*3/uL Abs Immat Gran (auto) 0.07 H (0.00-0.03) X10*3/uL Absolute Neuts (auto) 12.5 H (2.0-8.3) x10*3/uL Absolute Nucleated RBC 0.000 (0.0-0.012) X10*3/uL Nucleated RBC % (auto) 0.0 (0.0-0.2) /100WBC Smear Tech's Comments VERIFIED ESR 38 H (0-20) MM/HR Sodium 139 (135-145) mmol/L Potassium 3.6 (3.3-5.1) mmol/L Chloride 107 (96-108) mmol/L Carbon Dioxide 21 L (22-29) mmol/L Anion Gap 15 (12-20) BUN 26 H (9-16) mg/dL Creatinine 0.96 (0.5-1.4) mg/dL Estim Creat Clear Calc 65.0 Estimated GFR 59 Random Glucose 106 (60-115) mg/dL Lactic Acid (0.5-2.0) mmol/L Calcium 9.9 (8.4-10.2) mg/dL Total Bilirubin 0.3 (0.0-1.0) mg/dL AST 18 (5-31) U/L ALT 20 (0-31) U/L Alkaline Phosphatase 96 (39-117) U/L C-Reactive Protein 1.70 H (< or = 0.50) mg/dL Total Protein 7.4 (6.5-8.0) g/dL Albumin 4.0 (3.5-5.0) g/dL COVID-19 ([facility]) (Negative) COVID-19 Clin Com 05/07/23 05/08/23 Range/Units 22:07 01:06 WBC (4.8-10.8) X10*3/uL RBC (4.20-5.50) X10*6/uL Hgb (12.0-16.0) g/dl Hct (37.0-47.0) % MCV (80.0-98.0) fL MCH (27.0-33.0) pg MCHC (31.0-35.0) g/dl RDW (11.0-16.0) % Plt Count (160-400) X10*3/uL MPV (9.4-12.3) fL Immature Gran % (Auto) (0.0-0.4) % Neut % (Auto) (45-73) % Lymph % (Auto) (20-40) % [place] % (Auto) (2-11) % Eos % (Auto) (0-4) % Baso % (Auto) (0-2) % Lymph # (Auto) (1.2-4.9) X10*3/uL [place] # (Auto) (0.1-1.2) X10*3/uL Eos # (Auto) (0.0-0.4) X10*3/uL Baso # (Auto) (0.0-0.2) X10*3/uL Abs Immat Gran (auto) (0.00-0.03) X10*3/uL Absolute Neuts (auto) (2.0-8.3) x10*3/uL Absolute Nucleated RBC (0.0-0.012) X10*3/uL Nucleated RBC % (auto) (0.0-0.2) /100WBC Smear Tech's Comments ESR (0-20) MM/HR Sodium (135-145) mmol/L Potassium (3.3-5.1) mmol/L Chloride (96-108) mmol/L Carbon Dioxide (22-29) mmol/L Anion Gap (12-20) BUN (9-16) mg/dL Creatinine (0.5-1.4) mg/dL Estim Creat Clear Calc Estimated GFR Random Glucose (60-115) mg/dL Lactic Acid 1.4 (0.5-2.0) mmol/L Calcium (8.4-10.2) mg/dL Total Bilirubin (0.0-1.0) mg/dL AST (5-31) U/L ALT (0-31) U/L Alkaline Phosphatase (39-117) U/L C-Reactive Protein (< or = 0.50) mg/dL Total Protein (6.5-8.0) g/dL Albumin (3.5-5.0) g/dL COVID-19 ([facility]USS) Negative (Negative) COVID-19 Clin Com See Note Independent Interpretation I performed an independent interpretation of an: CT Scan Radiology Impression Discussion of test interpretation with radiology: I have reviewed the radiologist's reading. External Record Review External record reviewed: Other (Prior ED visit) Prescription Management I considered prescription management with: Antibiotic Discharge Plan Discharge Clinical Impression: Cellulitis Qualifiers: Site of cellulitis: extremity Site of cellulitis of extremity: lower extremity Laterality: right Qualified Code(s): L03.115 - Cellulitis of right lower limb Patient Disposition: Admitted As Inpatient
[2023-05-07] MEDS: Acetaminophen 325 MG TABLET 975 MG PO (23:47)
[2023-05-08] VITALS (7 sets, daily range): BP systolic 92–141; BP diastolic 57–74; PULSE 75–117; RESP 18; TEMP 36.6–37.6; O2SAT 97–100; BMI 32.4
--- NOTE | 2023-05-08 00:20 | PC.NURSE ---
pt's oral temp is less than when she first arrived. Pt educated on plan to not provide her with additional blankets (warm or not warm) to prevent her body temperature from rising further. RN spoke with provider regarding pt's meeting sepsis criteria and discussing a sepsis alert. New orders obtained for the pt to receive IV fluids.
[2023-05-08] MEDS: 0.9 % Sodium Chloride 1,000 ML 999 ML IV (00:45)
--- NOTE | 2023-05-08 01:24 | PM.IMHP ---
History of Present Illness Date of Service: 05/08/23 Chief Complaint: Leg swelling and pain 62-year-old female with past medical history of CKD stage 3, depression, fibromyalgia, HTN, migraine headaches, neurogenic bladder, comes into the hospital with recurrent cellulitis. She has warmth, tenderness, as well as redness of her right thigh, she has had history of this in the past. She was started on p.o. antibiotics this morning outpatient but has not found any relief and it has worsened in distribution. States that it started today. Denies any fever but has chills, no chest pain, no shortness of breath, no abdominal pain nausea or vomiting, no diarrhea constipation, no urinary symptoms and no lower extremity edema On arrival to the ED patient hemodynamically stable with a fever of 100.5, heart rate of 127 Labs are significant for WBC count of 13.5, hemoglobin of 10.4 which is around her baseline, ESR 38, CRP of 1.7, CT scan of who the right femur shows no specific findings of necrotizing fasciitis Patient started on IV antibiotics and will be admitted for further management Review of Systems Review of Systems: Yes all other systems are reviewed and are negative [facility] Medical History Anemia Anemia Arthritis Asthma Back pain with right-sided radiculopathy Breast pain Cervical cancer Chronic kidney disease, stage 3 Depression Dyspnea on exertion Fibromyalgia, primary History of cervical cancer HTN (hypertension) Hypertension Migraines Neurogenic bladder, NOS Recurrent cellulitis of lower extremity Surgical History H/O: hysterectomy Social History Household Members: Family Housing: House Do you presently have visiting nurse or other home services: No Alcohol intake: unknown Patient Tobacco Use Status: Never used Tobacco Tobacco use type: Cigarette Cigarettes Per Day: 4 Advance Directives: No Advance Directives Information Provided: No Advance Directives Date on File: 12/05/16 Nutrition Risks: No Nutritional Risk service: No Current occupational status: unemployed Meds Allergies Allergy/AdvReac Type Severity Reaction Status Date / Time buspirone [From BuSpar] Allergy Mild Tongue Verified 12/07/22 09:21 Swelling, dizziness ibuprofen [From Motrin] AdvReac Mild Rash, HTN Verified 12/07/22 09:21 Home Medications Medication Instructions Recorded Confirmed Last Taken Type acetaminophen 650 mg 2 tab PO Q8H PRN pain 10/11/22 05/08/23 Unknown History tablet,extended release docusate sodium 100 mg capsule 1 cap PO DAILY constipation 10/11/22 05/08/23 Unknown History duloxetine 20 mg capsule,delayed 2 cap PO QAM 10/11/22 05/08/23 Unknown History release lisinopril 40 mg tablet 1 tab PO DAILY 10/11/22 05/08/23 Unknown History meloxicam 7.5 mg tablet 1 tab PO QAM 10/11/22 05/08/23 Unknown History metoprolol succinate 25 mg 1 tab PO DAILY 10/11/22 05/08/23 Unknown History tablet,extended release 24 hr multivitamin-ferrous 1 tab PO DAILY 10/11/22 05/08/23 Unknown History fumarate-folic acid 18 mg-400 mcg tablet (Spectravite Adult) nitroglycerin 0.4 mg sublingual 1 tab sublingual Q5M angina 10/11/22 05/08/23 Unknown History tablet sumatriptan succinate 25 mg tablet 25 mg PO DAILY PRN Migraine 10/11/22 05/08/23 Unknown History Headache tizanidine 2 mg tablet 1 tab PO Q8H PRN Muscle Spasm 10/11/22 05/08/23 Unknown History Physical Exam Vital Signs and Narrative: Vital Signs: Last Vital Signs Temp 100.5 F H 05/07/23 21:46 Pulse 114 H 05/07/23 22:00 Resp 18 05/07/23 22:00 BP 109/61 05/07/23 22:00 Pulse Ox 97 05/07/23 22:00 O2 Del Method Room Air 05/07/23 22:00 BMI result Body Mass Index 31.5 Const: General: cooperative and no acute distress Orientation/consciousness: patient oriented x3 Eyes: General: appearance normal, both eyes and all related structures Resp: Effort & Inspection: normal respiratory effort Auscultation: clear to auscultation bilaterally Cardio: Rate: regular rate Rhythm: regular rhythm GI: Palpation (GI): Soft to palpation Auscultation: normal bowel sounds Skin: Other: Right thigh erythema, warmth, tenderness and edema extending all the way to just above the knee Neuro: General: patient oriented x3 Cognition (Neuro): normal cognition Extrem: General: Yes normal to inspection and Yes no pedal edema Results Labs 05/07/23 22:07 05/07/23 22:07 Labs: Laboratory Results - last 24 hr 05/07/23 05/07/23 05/07/23 22:07 22:07 22:07 MCV 80.2 MCH 25.1 L MCHC 31.3 RDW 15.2 Plt Count 234 MPV 10.8 Immature Gran % (Auto) 0.5 H Neut % (Auto) 92.1 H Lymph % (Auto) 5.0 L [place] % (Auto) 2.1 Eos % (Auto) 0.1 Baso % (Auto) 0.2 Lymph # (Auto) 0.7 L [place] # (Auto) 0.3 Eos # (Auto) 0.0 Baso # (Auto) 0.0 Abs Immat Gran (auto) 0.07 H Absolute Neuts (auto) 12.5 H Absolute Nucleated RBC 0.000 Nucleated RBC % (auto) 0.0 Smear Tech's Comments VERIFIED ESR 38 H Anion Gap 15 Estim Creat Clear Calc 65.0 Estimated GFR 59 Random Glucose 106 Lactic Acid Calcium 9.9 Total Bilirubin 0.3 AST 18 ALT 20 Alkaline Phosphatase 96 C-Reactive Protein 1.70 H Total Protein 7.4 Albumin 4.0 05/07/23 22:07 MCV MCH MCHC RDW Plt Count MPV Immature Gran % (Auto) Neut % (Auto) Lymph % (Auto) [place] % (Auto) Eos % (Auto) Baso % (Auto) Lymph # (Auto) [place] # (Auto) Eos # (Auto) Baso # (Auto) Abs Immat Gran (auto) Absolute Neuts (auto) Absolute Nucleated RBC Nucleated RBC % (auto) Smear Tech's Comments ESR Anion Gap Estim Creat Clear Calc Estimated GFR Random Glucose Lactic Acid 1.4 Calcium Total Bilirubin AST ALT Alkaline Phosphatase C-Reactive Protein Total Protein Albumin Imaging Radiologist's Impressions: Impressions Venous Duplex 05/07/23 22:32 IMPRESSION: No DVT demonstrated in the right lower extremity. The peroneal vein could not be visualized although it was visualized this past September. Femur CT 05/07/23 23:05 IMPRESSION: No specific findings of necrotizing fasciitis. Mild subcutaneous stranding/inflammation in the medial proximal right thigh. Assessment and Plan (1) Sepsis: Qualifiers: Sepsis type: sepsis due to unspecified organism Sepsis acute organ dysfunction status: without acute organ dysfunction Qualified Code(s): A41.9 - Sepsis, unspecified organism Status: Acute (2) Cellulitis: Qualifiers: Site of cellulitis: extremity Site of cellulitis of extremity: lower extremity Laterality: right Qualified Code(s): L03.115 - Cellulitis of right lower limb Status: Acute Plan 8-year-old female past medical history as mentioned above comes into the hospital with cellulitis of right lower extremity # sepsis - meets criteria for sepsis with tachycardia, fever, leukocytosis - likely secondary to cellulitis - will treat with IV antibiotics - follow cultures # acute right lower extremity cellulitis - erythema, warmth, edema, tenderness - will treat with IV antibiotics - failed outpatient therapy with pannus - follow cultures # hypertension - stable - continue antihypertensives # depression - continue antidepressants # CKD stage III - stable - monitor BMP DVT prophylaxis: Lovenox Given patient's need for IV antibiotics in the setting of sepsis patient require minimum 2 nights inpatient hospital stay for further management and monitoring Time Spent With Patient Time: Total time managing care of this patient today ____ minutes. Quality Stroke Does the patient have a stroke diagnosis?: No VTE Prior VTE?: No VTE Risk Level:: Medical - moderate - high VTE Device Contraindication: Treatment Not Indicated VTE Drug Contraindication: N/A - Med Ordered
[2023-05-08 01:29] LABS: COVID-19 Test Negative (Negative); IDNOW Serial# BCCEAD1C
[2023-05-08] MEDS: Enoxaparin Sodium 40 MG/0.4 ML SYRINGE SUBCUT ×2 (02:09→21:06)
[2023-05-08] MEDS: ceFAZolin Sodium/Dextrose,Iso 2 GM/50 ML PIGGYBACK IV ×3 (02:09→17:56)
--- NOTE | 2023-05-08 03:23 | PC.NURSE ---
Assumed care of pt. Pt brought to room on stretcher, no acute distress at this time.
[2023-05-08 04:44] LABS: MANUAL DIFF FLAG NO
[2023-05-08 04:46] LABS: Basophils Percent Auto 0.3 % (0-2); Eosinophils Percent Auto 0.1 % (0-4); Hematocrit 30.4 % (37.0-47.0); Hemoglobin 9.5 g/dl (12.0-16.0); Imm Gran Pct Auto 0.7 % (0.0-0.4); Lymphocytes Absolute Auto 1.2 X10*3/uL (1.2-4.9); Lymphocytes Percent Auto 7.9 % (20-40); Mean Corpuscular HGB Conc 31.3 g/dl (31.0-35.0); Mean Corpuscular Hemoglobin 25.1 pg (27.0-33.0); Mean Corpuscular Volume 80.2 fL (80.0-98.0); Monocytes Absolute Auto 0.4 X10*3/uL (0.1-1.2); Monocytes Percent Auto 2.4 % (2-11); Neutrophils Absolute Auto 13.5 x10*3/uL (2.0-8.3); Neutrophils Percent Auto 88.6 % (45-73); Platelet Count 220 X10*3/uL (160-400); Red Blood Count 3.79 X10*6/uL (4.20-5.50); Red Cell Distribution Width 15.3 % (11.0-16.0); White Blood Count 15.2 X10*3/uL (4.8-10.8)
[2023-05-08 05:09] LABS: Anion Gap 13 (12-20); Blood Urea Nitrogen 21 mg/dL (9-16); Calcium 8.9 mg/dL (8.4-10.2); Carbon Dioxide 19 mmol/L (22-29); Chloride 109 mmol/L (96-108); Creatinine Clr Calc Pharmacy 75.1; Estimated Glomerular Filt Rate > 60; Glucose Random 109 mg/dL (60-115); Potassium 3.8 mmol/L (3.3-5.1); Sodium 137 mmol/L (135-145)
[2023-05-08] MEDS: Acetaminophen 325 MG TABLET 650 MG PO ×3 (06:13→19:47)
--- NOTE | 2023-05-08 07:21 | PC.NURSE ---
Assumed care of patient at 0700. Pt resting quietly in bed.
--- NOTE | 2023-05-08 07:52 | PC.NURSE ---
Pt straight cath per order, output 200cc, clear yellow, no odor. tolerated well. Leti Jon NP at bedside. Will continue to monitor
--- NOTE | 2023-05-08 08:30 | PHA.MEDREC ---
Pharmacy Consult ? Medication Reconciliation Pharmacy has completed the medication reconciliation. Spoke to patient to confirm meds. Patient does not know their medications unless they are in front of her. Patient states that they are the only one who knows their medications. Called the patient's pharmacies ([facility] and [facility]) to confirm meds. Cross-referenced with claim history to confirm as well. Per patient's pharmacy, patient is on 30 day supply for Penicillin 250mg BID, however patient could not tell me how long until they were finished with antibiotic therapy.
[2023-05-08] MEDS: Multivitamin TABLET 1 TAB PO (08:58)
[2023-05-08] MEDS: Docusate Sodium 100 MG CAPSULE PO (08:58)
--- NOTE | 2023-05-08 09:02 | PC.NURSE ---
Blood pressure of 92/58, metoprolol and lisinopril not administered. c/o 03/26 right leg pain. Right leg red, swollen, warm, tender to touch. Will reassess Blood pressure.
[2023-05-08] MEDS: 0.9 % Sodium Chloride Flush 3 ML SYRINGE IVFLUSH ×3 (09:52→21:06)
[2023-05-08] MEDS: DULoxetine HCl 30 MG CAPSULE.DR PO (10:00)
--- NOTE | 2023-05-08 10:09 | PC.NURSE ---
Pt straight cath per order, output 200cc, clear yellow, no odor. tolerated well.
--- NOTE | 2023-05-08 10:18 | PM.EVENT ---
Event Note Date of Service: 05/08/23 Event Note: 62-year-old female past medical history as mentioned above comes into the hospital with cellulitis of right lower extremity Sepsis secondary to right lower extremity cellulitis meets criteria for sepsis with tachycardia, fever, leukocytosis erythema, warmth, edema, tenderness Continue Ancef ID consult pending hypertension Low blood pressures Hold antihypertensives for now depression continue antidepressants CKD stage III stable monitor BMP Neurogenic bladder Straight cath as needed Mild intermittent asthma Continue inhalers as needed DVT prophylaxis:? Lovenox Attending Dr. Walker full code Given patient's need for IV antibiotics in the setting of sepsis patient require minimum 2 nights inpatient hospital stay for further management and monitoring Time Spent With Patient Time: Total time managing care of this patient today ____ minutes.
--- NOTE | 2023-05-08 10:33 | PC.NURSE ---
meds po and iv meds given as ordered. warm blanket given, pt resting quietly, no apparent distress.
--- NOTE | 2023-05-08 13:45 | PC.NURSE ---
Pt straight catheterized per order. Pt tolerated well. Urine clear yellow w/ no odor. Output of 150cc.
--- NOTE | 2023-05-08 14:11 | MHC.CM.PN ---
pt lives w/sister has a drafter landscape and will ahve own ride home
--- NOTE | 2023-05-08 16:05 | PC.NURSE ---
pt catheterized per order. Tolerated well. output of 100cc. Urine yellow, no odor. Pt given additional pillow. resting quietly in bed.
[2023-05-08] MEDS: SUMAtriptan succinate 25 MG TABLET PO (16:40)
[2023-05-08] MEDS: TiZANidine HCL 4 MG TABLET 2 MG PO (19:46)
[2023-05-09] MEDS: ceFAZolin Sodium/Dextrose,Iso 2 GM/50 ML PIGGYBACK IV ×3 (02:11→17:05)
[2023-05-09] MEDS: Acetaminophen 325 MG TABLET 650 MG PO ×3 (02:12→21:20)
[2023-05-09 03:09] VITALS: BP 126/65; PULSE 97; RESP 16; TEMP 36.6; O2SAT 99
[2023-05-09 06:13] LABS: Anion Gap 9 (12-20); Blood Urea Nitrogen 11 mg/dL (9-16); Calcium 9.6 mg/dL (8.4-10.2); Carbon Dioxide 25 mmol/L (22-29); Chloride 107 mmol/L (96-108); Creatinine Clr Calc Pharmacy 82.2; Estimated Glomerular Filt Rate > 60; Glucose Random 88 mg/dL (60-115); Potassium 3.7 mmol/L (3.3-5.1); Sodium 137 mmol/L (135-145)
[2023-05-09 06:59] VITALS: BP 126/68; PULSE 94; RESP 20; TEMP 37.1; O2SAT 98
[2023-05-09] MEDS: DULoxetine HCl 30 MG CAPSULE.DR PO (08:28)
[2023-05-09] MEDS: Metoprolol Succinate ER 25 MG TAB.ER.24H PO (08:28)
[2023-05-09] MEDS: Docusate Sodium 100 MG CAPSULE PO (08:28)
[2023-05-09] MEDS: Multivitamin TABLET 1 TAB PO (08:28)
[2023-05-09] MEDS: 0.9 % Sodium Chloride Flush 3 ML SYRINGE IVFLUSH ×3 (08:31→21:21)
--- NOTE | 2023-05-09 14:16 | P.PNIM_ITS ---
Subjective Subjective Date of Service: 05/09/23 Review of Systems Follow-up cellulitis right lower extremity Denies pain, nausea, vomiting, diarrhea Physical Exam Vital Signs: Vital Signs: Last Vital Signs Temp 98.7 F 05/09/23 06:59 Pulse 94 05/09/23 06:59 Resp 20 05/09/23 06:59 BP 126/68 05/09/23 06:59 Pulse Ox 98 05/09/23 06:59 O2 Del Method Room Air 05/09/23 06:59 BMI result Body Mass Index 32.4 Appearing in no acute distress lung sounds are clear to auscultation heart regular rate rhythm, clear S1, S2 positive bowel sounds, abdomen is soft, nontender neuro patient is alert x3, no focal deficits Right LE erythema Objective Data Active Medications Acetaminophen (Acetaminophen 325 Mg Tablet) 650 mg PO Q6H PRN PRN Reason: Pain, Mild (Pain Scale 1-3) Last Admin: 05/09/23 08:28 Dose: 650 mg Documented By: LUDIVINA Albuterol Sulfate (Albuterol Sulfate 90 Mcg 8 Gm Inhaler) 2 puff INHALE Q4H PRN PRN Reason: shortness of breath or wheezing Docusate Sodium (Docusate Sodium 100 Mg Capsule) 100 mg PO DAILY PRN PRN Reason: Constipation Docusate Sodium (Docusate Sodium 100 Mg Capsule) 100 mg PO DAILY [facility] Last Admin: 05/09/23 08:28 Dose: 100 mg Documented By: LUDIVINA Duloxetine HCl (Duloxetine Hcl 30 Mg Capsule.Dr) 30 mg PO DAILY [facility] Last Admin: 05/09/23 08:28 Dose: 30 mg Documented By: LUDIVINA Enoxaparin Sodium (Enoxaparin Sodium 40 Mg/0.4 Ml Syringe) 40 mg SUBCUT Q24H [facility] Last Admin: 05/08/23 21:06 Dose: 40 mg Documented By: IGNACIO Fluconazole (Fluconazole 150 Mg Tablet) 150 mg PO ONCE ONE Stop: 05/09/23 14:15 Cefazolin Sodium/Dextrose (Ancef) 2 gm in 50 mls @ 100 mls/hr IV Q8H [facility] Last Infusion: 05/09/23 10:33 Dose: 0 mls/hr Documented By: LUDIVINA Lisinopril (Lisinopril 40 Mg Tablet) 40 mg PO DAILY [facility]; Protocol Last Admin: 05/08/23 08:58 Dose: Not Given Documented By: SLIME Non-Admin Reason: See Note Metoprolol Succinate (Metoprolol Succinate Er 25 Mg Tab.Er.24h) 25 mg PO DAILY [facility]; Protocol Last Admin: 05/09/23 08:28 Dose: 25 mg Documented By: LUDIVINA Multivitamins/Vitamin C (Multivitamin Tablet) 1 tab PO DAILY [facility] Last Admin: 05/09/23 08:28 Dose: 1 tab Documented By: LUDIVINA Ondansetron HCl (Ondansetron Hcl 4 Mg/2 Ml Vial) 4 mg IVPUSH Q8H PRN PRN Reason: Nausea and Vomiting Sodium Chloride (0.9 % Sodium Chloride Flush 3 Ml Syringe) 3 ml IVFLUSH QSHIFT [facility] Last Admin: 05/09/23 08:31 Dose: 3 ml Documented By: LUDIVINA Sumatriptan Succinate (Sumatriptan Succinate 25 Mg Tablet) 25 mg PO DAILY PRN PRN Reason: Migraine Headache Last Admin: 05/08/23 16:40 Dose: 25 mg Documented By: SLIME Tizanidine HCl (Tizanidine Hcl 4 Mg Tablet) 2 mg PO Q8H PRN PRN Reason: Muscle Spasm Last Admin: 05/08/23 19:46 Dose: 2 mg Documented By: IGNACIO Labs 05/08/23 04:40 05/09/23 05:41 Labs: Laboratory Results - last 24 hr 05/09/23 05:41 Anion Gap 9 L Estim Creat Clear Calc 82.2 Estimated GFR > 60 Random Glucose 88 Calcium 9.6 D Microbiology Microbiology Results: Microbiology 05/07/23 22:07 Blood Culture - Preliminary Blood - Venous No growth after 24 hours. 05/07/23 22:07 Blood Culture - Preliminary Blood - Venous No growth after 24 hours. Assessment and Plan (1) Sepsis: Status: Acute Plan 62-year-old female past medical history as mentioned above comes into the hospital with cellulitis of right lower extremity Sepsis secondary to right lower extremity cellulitis met criteria for sepsis with tachycardia, fever, leukocytosis sepsis resolved erythema, warmth, edema, tenderness Continue Ancef ID following>one more day of IV abx one dose of diflucan for tinea pedis hypertension with hypotension, better Hold antihypertensives for now, restart as BP allows depression continue antidepressants CKD stage III stable monitor BMP Neurogenic bladder Straight cath as needed Mild intermittent asthma Continue inhalers as needed DVT prophylaxis:? Johanna Attending Dr. Walker full code Continue hospitalization for treatment of right lower extremity cellulitis Time Spent With Patient Time: Total time managing care of this patient today ____ minutes. Quality Stroke Does the patient have a stroke diagnosis?: No VTE Prior VTE?: No VTE Risk Level:: Medical - moderate - high VTE Device Contraindication: Treatment Not Indicated VTE Drug Contraindication: N/A - Med Ordered
--- NOTE | 2023-05-09 15:47 | W.PM.IDCN ---
History of Present Illness Data of Consult Service Date: 05/09/23 Requesting physician: Leti Marlow Primary Care Provider: Lilly Cowart MD HPI Reason for consult: RLE recurrent cellulitis She presents with reddened RLE on 05/07 to ER. I had seen her in office November 2022 and she was given PCN V which she says she was only taking daily and then run out and lotrimin for feet with tinea pedis. She still had tinea between right fourth and fifth toes. She has WBC of 15.2 and temperature of 100.5 with tachycardia to 94. She was started on Kefzol. Review of Systems Review of Systems: Yes all other systems are reviewed and are negative PMFSH Past Medical History Medical History Anemia Anemia Arthritis Asthma Back pain with right-sided radiculopathy Breast pain Cervical cancer Chronic kidney disease, stage 3 Depression Dyspnea on exertion Fibromyalgia, primary History of cervical cancer HTN (hypertension) Hypertension Migraines Neurogenic bladder, NOS Recurrent cellulitis of lower extremity Family History Family history: reviewed and not pertinent Surgical History Surgical History H/O: hysterectomy Social History Social History Household Members: None Housing: House Do you presently have visiting nurse or other home services: No Alcohol intake: unknown Patient Tobacco Use Status: Never used Tobacco Tobacco use type: Cigarette Cigarettes Per Day: 4 Second Hand Smoke Exposure: No Advance Directives Date on File: 12/05/16 service: No Current occupational status: unemployed Meds Allergies Allergy/AdvReac Type Severity Reaction Status Date / Time buspirone [From BuSpar] Allergy Mild Tongue Verified 05/09/23 00:58 Swelling, dizziness ibuprofen [From Motrin] AdvReac Mild Rash, HTN Verified 05/09/23 00:58 Active Medications: Current Medications Acetaminophen (Acetaminophen 325 Mg Tablet) 650 mg PO Q6H PRN PRN Reason: Pain, Mild (Pain Scale 1-3) Last Admin: 05/09/23 08:28 Dose: 650 mg Albuterol Sulfate (Albuterol Sulfate 90 Mcg 8 Gm Inhaler) 2 puff INHALE Q4H PRN PRN Reason: shortness of breath or wheezing Docusate Sodium (Docusate Sodium 100 Mg Capsule) 100 mg PO DAILY PRN PRN Reason: Constipation Docusate Sodium (Docusate Sodium 100 Mg Capsule) 100 mg PO DAILY [facility] Last Admin: 05/09/23 08:28 Dose: 100 mg Duloxetine HCl (Duloxetine Hcl 30 Mg Capsule.Dr) 30 mg PO DAILY [facility] Last Admin: 05/09/23 08:28 Dose: 30 mg Enoxaparin Sodium (Enoxaparin Sodium 40 Mg/0.4 Ml Syringe) 40 mg SUBCUT Q24H [facility] Last Admin: 05/08/23 21:06 Dose: 40 mg Cefazolin Sodium/Dextrose (Ancef) 2 gm in 50 mls @ 100 mls/hr IV Q8H [facility] Last Infusion: 05/09/23 10:33 Dose: Infused Lisinopril (Lisinopril 40 Mg Tablet) 40 mg PO DAILY [facility]; Protocol Last Admin: 05/08/23 08:58 Dose: Not Given Metoprolol Succinate (Metoprolol Succinate Er 25 Mg Tab.Er.24h) 25 mg PO DAILY [facility]; Protocol Last Admin: 05/09/23 08:28 Dose: 25 mg Multivitamins/Vitamin C (Multivitamin Tablet) 1 tab PO DAILY [facility] Last Admin: 05/09/23 08:28 Dose: 1 tab Ondansetron HCl (Ondansetron Hcl 4 Mg/2 Ml Vial) 4 mg IVPUSH Q8H PRN PRN Reason: Nausea and Vomiting Sodium Chloride (0.9 % Sodium Chloride Flush 3 Ml Syringe) 3 ml IVFLUSH QSHIFT [facility] Last Admin: 05/09/23 08:31 Dose: 3 ml Sumatriptan Succinate (Sumatriptan Succinate 25 Mg Tablet) 25 mg PO DAILY PRN PRN Reason: Migraine Headache Last Admin: 05/08/23 16:40 Dose: 25 mg Tizanidine HCl (Tizanidine Hcl 4 Mg Tablet) 2 mg PO Q8H PRN PRN Reason: Muscle Spasm Last Admin: 05/08/23 19:46 Dose: 2 mg Home Medications Medication Instructions Recorded Confirmed Last Taken Type acetaminophen 650 mg 2 tab PO Q8H PRN pain 10/11/22 05/08/23 Unknown History tablet,extended release docusate sodium 100 mg capsule 1 cap PO DAILY constipation 10/11/22 05/08/23 Unknown History lisinopril 40 mg tablet 1 tab PO DAILY 10/11/22 05/08/23 Unknown History metoprolol succinate 25 mg 1 tab PO DAILY 10/11/22 05/08/23 Unknown History tablet,extended release 24 hr nitroglycerin 0.4 mg sublingual 1 tab sublingual Q5M PRN Angina 10/11/22 05/08/23 Unknown History tablet sumatriptan succinate 25 mg tablet 25 mg PO DAILY PRN Migraine 10/11/22 05/08/23 Unknown History Headache celecoxib 50 mg capsule 50 mg PO DAILY 05/08/23 05/08/23 Unknown History duloxetine 30 mg capsule,delayed 30 mg PO DAILY 05/08/23 05/08/23 Unknown History release multivitamin-ferrous 1 tab PO DAILY 05/08/23 05/08/23 Unknown History fumarate-folic acid 18 mg-400 mcg tablet (Certavite-Antioxidant) polyethylene glycol 3350 17 17 g PO DAILY 05/08/23 05/08/23 Unknown History gram/dose oral powder trazodone 50 mg tablet 50 mg PO BEDTIME 05/08/23 05/08/23 Unknown History white petrolatum 42 % topical 1 appl topical DAILY PRN Dry Skin 05/08/23 05/08/23 Unknown History ointment Physical Exam Vital Signs: Vital Signs: Last Vital Signs Temp 98.7 F 05/09/23 06:59 Pulse 94 05/09/23 06:59 Resp 20 05/09/23 06:59 BP 126/68 05/09/23 06:59 Pulse Ox 98 05/09/23 06:59 O2 Del Method Room Air 05/09/23 06:59 BMI result Body Mass Index 32.4 Const: General: cooperative HEENT: Head: Yes normal to inspection Face and sinus: Yes normal facial exam Mouth: Normal oral and palatal mucosa present Teeth and gingiva: dentition normal Eyes: General: appearance normal, both eyes and all related structures Pupils: Equal, round and reactive pupils present Resp: Effort & Inspection: normal respiratory effort Cardio: Rate: regular rate Rhythm: regular rhythm GI: Palpation (GI): Soft to palpation and nontender : General: Yes no CVA tenderness Back/Spine/Pelvis: Back: no CVA tenderness Skin: General skin exam: no rashes or lesions noted Neuro: General: moves all extremities Cranial nerves: Yes Equal, round and reactive pupils present Extrem: Other: RLE reddened from knee to foot tinea present interdigital space between 4th and 5th toes Psych: Appearance: grossly normal Results Labs 05/08/23 04:40 05/09/23 05:41 Labs: BMP 05/09/23 05:41 Sodium 137 Potassium 3.7 Chloride 107 Carbon Dioxide 25 BUN 11 Creatinine 0.77 Calcium 9.6 D Microbiology Microbiology Results: Microbiology 05/07/23 22:07 Blood - Venous Blood Culture - Preliminary No growth after 24 hours. 05/07/23 22:07 Blood - Venous Blood Culture - Preliminary No growth after 24 hours. Assessment and Plan (1) Sepsis: Qualifiers: Sepsis type: sepsis due to unspecified organism Sepsis acute organ dysfunction status: without acute organ dysfunction Qualified Code(s): A41.9 - Sepsis, unspecified organism Status: Acute She has likely staph or strep due to recurrent cellulitis. She has not been taking PCN as directed po. She still has tinea pedis also. (2) Recurrent cellulitis of lower extremity: Status: Acute Would continue Kefzol another day until better and then po Keflex 500 mg qid for 10 days and then po PCN V 250 mg bid indefinitely. Also Diflucan and topical antifungal creams. See me two weeks outpatient. Time Spent With Patient Time: Total time managing care of this patient today ____ minutes.
[2023-05-09] MEDS: SUMAtriptan succinate 25 MG TABLET PO (16:14)
--- NOTE | 2023-05-09 16:18 | MHC.CM.PN ---
Per MD rounds no discharge today. Infectious disease recommendations are pending. DP Home self care family transport.
[2023-05-09] MEDS: Fluconazole 150 MG TABLET PO (17:05)
[2023-05-09 17:16] VITALS: BP 161/86
[2023-05-09] MEDS: lisinopriL 40 MG TABLET PO (17:33)
[2023-05-09 20:00] VITALS: BP 161/77; PULSE 75; RESP 18; TEMP 36.4; O2SAT 95
[2023-05-09] MEDS: TiZANidine HCL 4 MG TABLET 2 MG PO (21:20)
[2023-05-09] MEDS: Enoxaparin Sodium 40 MG/0.4 ML SYRINGE SUBCUT (21:20)
[2023-05-10] MEDS: ceFAZolin Sodium/Dextrose,Iso 2 GM/50 ML PIGGYBACK IV ×2 (00:45→09:00)
[2023-05-10 04:00] VITALS: BP 118/71; PULSE 77; RESP 16; TEMP 36.8; O2SAT 97
[2023-05-10 07:12] VITALS: BP 136/69; PULSE 70; RESP 20; TEMP 36.1; O2SAT 96
--- NOTE | 2023-05-10 07:33 | PC.NURSE ---
Refusing fall risk interventions.
[2023-05-10] MEDS: lisinopriL 40 MG TABLET PO (08:11)
[2023-05-10] MEDS: Multivitamin TABLET 1 TAB PO (08:11)
[2023-05-10] MEDS: DULoxetine HCl 30 MG CAPSULE.DR PO (08:11)
[2023-05-10] MEDS: 0.9 % Sodium Chloride Flush 3 ML SYRINGE IVFLUSH (08:11)
[2023-05-10] MEDS: Docusate Sodium 100 MG CAPSULE PO (08:11)
[2023-05-10] MEDS: Metoprolol Succinate ER 25 MG TAB.ER.24H PO (08:11)
--- NOTE | 2023-05-10 12:01 | PM.DS ---
DS: Providers Provider Date of Service: 05/10/23 Date of admission: 05/08/23 01:22 Date of discharge: 05/10/23 Primary care physician: Lilly Cowart MD Consults: 05/09/23 07:18 Consult to Infectious Diseases Routine Consulting Provider: [facility] [place] [facility] Reason for consultation: right LE cellulitis Attending physician on discharge: Jaquan Walker Discharging clinician: Alberta Tiwari DS: Diagnosis Discharge Diagnosis (1) Sepsis: Status: Acute (2) Recurrent cellulitis of lower extremity: Status: Acute DS: Summary Hospital Course Hospital Course: From H&P on day of admission 62-year-old female with past medical history of CKD stage 3, depression, fibromyalgia, HTN, migraine headaches, neurogenic bladder, comes into the hospital with recurrent cellulitis.? She has warmth, tenderness, as well as redness of her right thigh, she has had history of this in the past.? She was started on p.o. antibiotics this morning outpatient but has not found any relief and it has worsened in distribution.? States that it started today. Denies any fever but has chills, no chest pain, no shortness of breath, no abdominal pain nausea or vomiting, no diarrhea constipation, no urinary symptoms and no lower extremity edema On arrival to the ED patient hemodynamically stable with a fever of 100.5, heart rate of 127 Labs are significant for WBC count of 13.5, hemoglobin of 10.4 which is around her baseline, ESR 38, CRP of 1.7, CT scan of who the right femur shows no specific findings of? necrotizing fasciitis Sepsis secondary to right lower extremity cellulitis met criteria for sepsis with tachycardia, fever, leukocytosis. She was treated with IV Ancef. , sepsis resolved. US negative for DVT and CT leg with generalized inflammation. With seen in consultation by Infectious Diseases who recommended Diflucan as well as topical cream for tinea pedis; Recommend oral Keflex for 10 days and then resume oral penicillin V indefinitely thereafter. outpatient follow up with ID in two weeks. She has been afebrile since admission and was eager to return home today. Time Spent with Patient Time attestation: Total time managing care of this patient today ____ minutes. Discharge coordination time: Greater than 30 minutes Quality: Safe Use of Opioids Does Pt have an Active Cancer Diagnosis on the Problem List?: No Quality: Stroke Does the patient have a stroke diagnosis?: No Physical Exam Vital Signs: Vital Signs: Last Vital Signs Temp 97.0 F 05/10/23 07:12 Pulse 70 05/10/23 07:12 Resp 20 05/10/23 07:12 BP 136/69 05/10/23 07:12 Pulse Ox 96 05/10/23 07:12 O2 Del Method Room Air 05/10/23 07:12 BMI result Body Mass Index 32.4 Const: General: cooperative, comfortable, no acute distress, alert and awake Nutritional Appearance: overweight Orientation/consciousness: patient oriented x3 Resp: Effort & Inspection: normal respiratory effort, able to speak in complete sentences, no respiratory distress and no use of accessory muscles Auscultation: clear to auscultation bilaterally Cardio: Rate: regular rate GI: Palpation (GI): Soft to palpation Skin: Other: right leg with warmth, mild erythema, mild edema compared to left. no significant tenderness to palpation Neuro: General: patient oriented x3 and moves all extremities DS: Data Data Completed and Pending Labs on day of discharge: Preliminary micro results at discharge 05/07/23 22:07 Blood Culture - Preliminary Blood - Venous No growth after 48 hours. 05/07/23 22:07 Blood Culture - Preliminary Blood - Venous No growth after 48 hours. Discharge Plan Discharge Anticipated Discharge Date/Time: 05/10/23 12:08 Patient Disposition: Home, Self-Care Discharge Diagnosis: sepsis secondary to recurrent cellulitis tinea pedis Referrals: Lilly Cowart MD [Primary Care Provider] - 1 Week Amy Rodriguez MD [Physician] - 2 Weeks Discharge Medications: New cephalexin 500 mg tablet 500 mg PO QID 10 Days Qty: 40 0RF fluconazole [Diflucan] 150 mg tablet 150 mg PO QWEEK Qty: 2 0RF terbinafine HCl 1 % cream 1 appl topical BID 14 Days Qty: 30 0RF Continued sumatriptan succinate 25 mg tablet 25 mg PO DAILY PRN (Reason: Migraine Headache) docusate sodium 100 mg capsule 1 cap PO DAILY metoprolol succinate 25 mg tablet extended release 24 hr 1 tab PO DAILY lisinopril 40 mg tablet 1 tab PO DAILY acetaminophen 650 mg tablet extended release 2 tab PO Q8H PRN (Reason: pain) nitroglycerin 0.4 mg tablet, sublingual 1 tab sublingual Q5M PRN (Reason: Angina) ondansetron 4 mg tablet,disintegrating 4 mg PO Q8H PRN (Reason: nausea and vomiting) Qty: 10 0RF trazodone 50 mg tablet 50 mg PO BEDTIME polyethylene glycol 3350 17 gram/dose powder 17 g PO DAILY celecoxib 50 mg capsule 50 mg PO DAILY Certavite-Antioxidant 18-400 mg-mcg tablet 1 tab PO DAILY white petrolatum 42 % ointment 1 appl topical DAILY PRN (Reason: Dry Skin) duloxetine 30 mg capsule,delayed release(DR/EC) 30 mg PO DAILY penicillin V potassium 250 mg tablet 250 mg PO BID 30 Days Qty: 60 1RF albuterol sulfate [ProAir HFA] 90 mcg/actuation HFA aerosol inhaler 2 puff inhalation Q4-6H PRN (Reason: shortness of breath or wheezing) 30 Days Qty: 8.5 3RF Discharge Orders: Discharge Order (Routine); Ordered 05/10/23 Ordered By: Alberta Tiwari Activity on Discharge: As tolerated Stand Alone Forms: Patient Portal Discharge page Care Plan Goals: see below Health Concerns: recurrent cellulitis tinea pedis Plan of Treatment: take cephalexin for 10 days and then resume taking Penicillin. do not take both antitbiotics at the same time call to schedule follow up appointment with Dr. Jennifer CARRANZA take fluconazole one weekly, starting next wednesday 05/16 (last dose received 05/09) for two weeks apply terbinafine cream twice daily for one week after improvement of athlete's foot - recommend two weeks Assessment: see discharge summary
--- NOTE | 2023-05-10 12:40 | MHC.CM.PN ---
DP: PT HAS BEEN MEDICALLY CLEARED FOR DC HOME, NO SERVICES. PT HAS OWN RIDE HOME.
[2023-05-10 13:03] LABS: Hematocrit 33.2 % (37.0-47.0); Hemoglobin 10.3 g/dl (12.0-16.0); Mean Corpuscular Hemoglobin 24.8 pg (27.0-33.0); Mean Corpuscular Volume 79.8 fL (80.0-98.0); Mean Platelet Volume 10.6 fL (9.4-12.3); Platelet Count 246 X10*3/uL (160-400); Red Blood Count 4.16 X10*6/uL (4.20-5.50); Red Cell Distribution Width 15.6 % (11.0-16.0); White Blood Count 7.9 X10*3/uL (4.8-10.8)
== END 2023-05-10 13:28 | disposition home or self-care (01) | DRG 720 ==
LOC: HO.ED 22:23 → HO.EDOVER 05-08 01:50 → HO.S3 05-08 16:36
PROVIDERS: Nurse Practitioner Acute Care; Physician Assistant; Admitting Provider Internal Medicine; Emergency Provider Emergency Medicine; PCP General Practice; Visit Provider Physician Assistant Medical
DX: A41.9 Sepsis, unspecified organism (principal); I95.9 Hypotension, unspecified; L03.115 Cellulitis of right lower limb; J45.20 Mild intermittent asthma, uncomplicated; F32.A Depression, unspecified; B35.3 Tinea pedis; N31.9 Neuromuscular dysfunction of bladder, unspecified; N18.30 Chronic kidney disease, stage 3 unspecified; I12.9 Hypertensive chronic kidney disease with stage 1 through stage 4 chronic kidney disease, or unspecified chronic kidney disease; M79.7 Fibromyalgia; Z20.822 Contact with and (suspected) exposure to COVID-19; Z79.899 Other long term (current) drug therapy
CPT/HCPCS: 36415; 73701; 80048; 80053; 83605; 85025; 85027; 85652; 86140; 87040; 87635; 93971; 99285; J0690; J1650; J2270; J2543; Q9967

== ENCOUNTER → 2023-05-08 01:22 | Outpatient (BNV) | payer MEDICAID, SELFPAY | PROVIDERS: Admitting Provider Internal Medicine; Emergency Provider Emergency Medicine; PCP General Practice; Visit Provider Internal Medicine | DX: A41.9 Sepsis, unspecified organism (principal); L03.119 Cellulitis of unspecified part of limb | CPT/HCPCS: 99222 ==

== ENCOUNTER → 2023-05-08 01:22 | Outpatient (BNV) | payer MEDICAID, SELFPAY | PROVIDERS: Admitting Provider Internal Medicine; Emergency Provider Emergency Medicine; PCP General Practice; Visit Provider Internal Medicine | DX: A41.9 Sepsis, unspecified organism (principal); L03.115 Cellulitis of right lower limb | CPT/HCPCS: 99223; 99232; 99239; 99499 ==

== ENCOUNTER 2023-05-20 17:43 | Inpatient (IN) | payer MEDICAID, SELFPAY ==
--- NOTE | ~2023-05-20 | US_ITS ---
EXAMINATION: US VENOUS ULTRASOUND WITH DOPPLER LOWER EXTREMITY, RIGHT CLINICAL INFORMATION: Pain. COMPARISON: None available. TECHNIQUE: Ultrasound of the deep veins is performed from the hip to the calf with compression sonography and color and pulse Doppler assessment. Spectral analysis with color-flow imaging is performed. FINDINGS: There is normal venous compression and respiratory variation and augmented flow. The visualized common femoral vein, superficial femoral vein, profunda femoral vein, popliteal vein, and the posterior tibial vein shows no evidence for deep venous thrombosis. The peroneal vein is not seen.There is no significant popliteal fossa cyst. If the patient's symptoms persist, followup ultrasound in 5 days 7 days might be of value to exclude proximal propagation from a non-visualized calf vein. US/US venous duplex LE RT IMPRESSION: No deep vein thrombosis demonstrated in the right lower extremity.
[2023-05-20 17:51] VITALS: BP 129/88; BP 149/108; PULSE 104; PULSE 89; RESP 18; TEMP 37.1; O2SAT 97; O2SAT 99; BMI 33.0
--- NOTE | 2023-05-20 18:22 | ED_ITS ---
HPI - General Adult General Chief complaint: Extremity Injury, Lower Stated complaint: R Leg pain and swelling Time Seen by Provider: 05/20/23 17:49 Source: patient Mode of arrival: EMS Limitations: no limitations History of Present Illness HPI narrative: Patient is a 62 year old female who presents to the ED due to cellulitis of her right leg, starting at the right knee and traveling down to her right foot. She reports associated fever and chills but was unable to take her temperature at home. She explains that her right leg is warm to the touch and describes the pain that she's experiencing as a pins and needles sensation. She reports that the cellulitis is worse this time than it normally is since it typically doesn't affect her foot. 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 She was discharged on 05/10/2023 with Keflex 500 mg PO QID for 10 days, and then PCN V 250 mg PO BID indefinitely. Related Data Home Medications Medication Instructions Recorded Confirmed acetaminophen 650 mg 2 tab PO Q8H PRN pain 10/11/22 05/08/23 tablet,extended release docusate sodium 100 mg capsule 1 cap PO DAILY constipation 10/11/22 05/08/23 lisinopril 40 mg tablet 1 tab PO DAILY 10/11/22 05/08/23 metoprolol succinate 25 mg 1 tab PO DAILY 10/11/22 05/08/23 tablet,extended release 24 hr nitroglycerin 0.4 mg sublingual 1 tab sublingual Q5M PRN Angina 10/11/22 05/08/23 tablet sumatriptan succinate 25 mg tablet 25 mg PO DAILY PRN Migraine 10/11/22 05/08/23 Headache celecoxib 50 mg capsule 50 mg PO DAILY 05/08/23 05/08/23 duloxetine 30 mg capsule,delayed 30 mg PO DAILY 05/08/23 05/08/23 release multivitamin-ferrous 1 tab PO DAILY 05/08/23 05/08/23 fumarate-folic acid 18 mg-400 mcg tablet (Certavite-Antioxidant) polyethylene glycol 3350 17 17 g PO DAILY 05/08/23 05/08/23 gram/dose oral powder trazodone 50 mg tablet 50 mg PO BEDTIME 05/08/23 05/08/23 white petrolatum 42 % topical 1 appl topical DAILY PRN Dry Skin 05/08/23 05/08/23 ointment Previous Rx's Medication Instructions Recorded albuterol sulfate 90 mcg/actuation 2 puff inhalation Q4-6H PRN 08/03/20 aerosol inhaler (ProAir HFA) shortness of breath or wheezing 30 days #8.5 grams ondansetron 4 mg disintegrating 4 mg PO Q8H PRN nausea and 10/13/22 tablet vomiting #10 tabs cephalexin 500 mg tablet 500 mg PO QID 10 days #40 tabs 05/10/23 fluconazole 150 mg tablet 150 mg PO QWEEK #2 tabs 05/10/23 (Diflucan) penicillin V potassium 250 mg 250 mg PO BID 30 days #60 tabs 05/10/23 tablet terbinafine HCl 1 % topical cream 1 appl topical BID 14 days #30 05/10/23 grams Allergies Allergy/AdvReac Type Severity Reaction Status Date / Time buspirone [From BuSpar] Allergy Mild Tongue Verified 05/09/23 00:58 Swelling, dizziness ibuprofen [From Motrin] AdvReac Mild Rash, HTN Verified 05/09/23 00:58 Review of Systems Constitutional: Constitutional: Reports chills, Reports fatigue, Reports fever(s) and Reports weakness Cardiovascular: Cardiovascular: Denies chest pain and Denies dyspnea Respiratory: Respiratory: Denies cough and Denies dyspnea Gastrointestinal: Gastrointestinal: Denies abdominal pain Musculoskeletal: Musculoskeletal: Denies back pain Integumentary/Breasts: Skin/Breast: Reports erythema, Reports rash, Reports sk in swelling and Denies wounds Neurologic: Reports weakness Endocrine: Endocrine: Reports fatigue PMFSH Past Medical History Medical History Anemia Anemia Arthritis Asthma Back pain with right-sided radiculopathy Breast pain Cervical cancer Chronic kidney disease, stage 3 Depression Dyspnea on exertion Fibromyalgia, primary History of cervical cancer HTN (hypertension) Hypertension Migraines Neurogenic bladder, NOS Recurrent cellulitis of lower extremity Surgical History H/O: hysterectomy Social History Social History Household Members: None Housing: House Do you presently have visiting nurse or other home services: No Alcohol intake: former Patient Tobacco Use Status: Never used Tobacco Tobacco use type: Cigarette Cigarettes Per Day: 4 Smoked in Last 30 Days: Yes Second Hand Smoke Exposure: No Use of substances other than those prescribed or required for medical reasons: No Advance Directives: No Advance Directives Information Provided: No Advance Directives Date on File: 12/05/16 Patient : No service: No Current occupational status: unemployed Physical Exam ED Vital Signs: Vital Signs - 24 hr 05/20/23 17:51 Temperature 98.8 F Pulse Rate 89 Respiratory Rate 18 Blood Pressure 129/88 Pulse Oximetry 97 Oxygen Delivery Method Room Air BMI result Body Mass Index 33.0 Const General: healthy appearing, comfortable, no acute distress, alert and awake Nutritional Appearance: well nourished Orientation/consciousness: patient oriented x3 HENMT Head: Yes normocephalic and Yes atraumatic Eyes Eyelids: Yes eyelids normal Conjunctivae: conjunctivae normal Sclerae: sclerae normal Corneas: corneas normal Pupils: Equal, round and reactive pupils present EOM: EOMs intact bilaterally Neck Neck: Yes full ROM Resp Effort & Inspection: normal respiratory effort, able to speak in complete sentences and not labored Cardio Rate: regular rate Rhythm: regular rhythm GI Inspection: No distended Palpation (GI): Soft to palpation, not firm, nontender, no guarding and not rigid Skin Other: The patient has [id number] edema of the right lower extremity from just below the knee to the dorsalis the right foot. We anterior cervix is more affected with some erythema extending around to the right lateral leg. This area is to the patient with increased warmth. No open wounds General skin exam: elasticity normal Neuro General: patient oriented x3 Cranial nerves: Yes Equal, round and reactive pupils present and Yes Bilaterally intact EOM present Cognition (Neuro): normal cognition Extrem Other: Moving all extremities well without any obvious deformities Medical Decision Making Medical Decision Making MDM Narrative: 8-year-old female with past medical history significant for recurrent right lower extremity cellulitis appears to have an exacerbation of same. We will start vancomycin and ceftriaxone. Plan for ultrasound to rule out DVT. Labs and blood cultures pending. Patient is currently on oral antibiotics and failing treatment. Patient is able to flex and extend at the right knee without any difficulty. Less likely to be septic prosthetic joint Differential Diagnosis Differential Diagnoses: The differential diagnosis associated with the presentation includes Recurrent cellulitis Sepsis Bacteremia Dermatitis Lymphangitis Admission/Observation Consideration of admission/observation: Escalation of care including admission/observation considered Patient has recurrent cellulitis despite oral antibiotic treatment Lab Data 05/20/23 18:21 05/20/23 18:21 Discharge Plan Discharge Clinical Impression: Recurrent cellulitis of lower extremity Patient Disposition: Admitted As Inpatient Prescriptions: No Action sumatriptan succinate 25 mg tablet 25 mg PO DAILY PRN (Reason: Migraine Headache) docusate sodium 100 mg capsule 1 cap PO DAILY metoprolol succinate 25 mg tablet extended release 24 hr 1 tab PO DAILY lisinopril 40 mg tablet 1 tab PO DAILY acetaminophen 650 mg tablet extended release 2 tab PO Q8H PRN (Reason: pain) nitroglycerin 0.4 mg tablet, sublingual 1 tab sublingual Q5M PRN (Reason: Angina) ondansetron 4 mg tablet,disintegrating 4 mg PO Q8H PRN (Reason: nausea and vomiting) Qty: 10 0RF trazodone 50 mg tablet 50 mg PO BEDTIME polyethylene glycol 3350 17 gram/dose powder 17 g PO DAILY celecoxib 50 mg capsule 50 mg PO DAILY Certavite-Antioxidant 18-400 mg-mcg tablet 1 tab PO DAILY white petrolatum 42 % ointment 1 appl topical DAILY PRN (Reason: Dry Skin) duloxetine 30 mg capsule,delayed release(DR/EC) 30 mg PO DAILY cephalexin 500 mg tablet 500 mg PO QID 10 Days Qty: 40 0RF penicillin V potassium 250 mg tablet 250 mg PO BID 30 Days Qty: 60 1RF fluconazole [Diflucan] 150 mg tablet 150 mg PO QWEEK Qty: 2 0RF terbinafine HCl 1 % cream 1 appl topical BID 14 Days Qty: 30 0RF albuterol sulfate [ProAir HFA] 90 mcg/actuation HFA aerosol inhaler 2 puff inhalation Q4-6H PRN (Reason: shortness of breath or wheezing) 30 Days Qty: 8.5 3RF
[2023-05-20 18:27] LABS: MANUAL DIFF FLAG NO
[2023-05-20 18:40] LABS: Lactic Acid 0.8 mmol/L (0.5-2.0)
[2023-05-20 18:41] LABS: Basophils Percent Auto 0.2 % (0-2); Eosinophils Absolute Auto 0.1 X10*3/uL (0.0-0.4); Eosinophils Percent Auto 0.7 % (0-4); Hematocrit 31.7 % (37.0-47.0); Hemoglobin 9.9 g/dl (12.0-16.0); Imm Gran Abs Auto 0.08 X10*3/uL (0.00-0.03); Imm Gran Pct Auto 0.6 % (0.0-0.4); Lymphocytes Absolute Auto 2.3 X10*3/uL (1.2-4.9); Lymphocytes Percent Auto 16.7 % (20-40); Mean Corpuscular HGB Conc 31.2 g/dl (31.0-35.0); Mean Corpuscular Hemoglobin 25.1 pg (27.0-33.0); Mean Corpuscular Volume 80.5 fL (80.0-98.0); Monocytes Absolute Auto 0.5 X10*3/uL (0.1-1.2); Monocytes Percent Auto 3.3 % (2-11); Neutrophils Absolute Auto 10.8 x10*3/uL (2.0-8.3); Neutrophils Percent Auto 78.5 % (45-73); Platelet Count 283 X10*3/uL (160-400); Red Blood Count 3.94 X10*6/uL (4.20-5.50); Red Cell Distribution Width 15.7 % (11.0-16.0); White Blood Count 13.7 X10*3/uL (4.8-10.8)
[2023-05-20 18:46] LABS: Alanine Aminotransferase 40 U/L (0-31); Albumin Level 3.9 g/dL (3.5-5.0); Alkaline Phosphatase 76 U/L (39-117); Anion Gap 10 (12-20); Aspartate Amino Transferase 38 U/L (5-31); Bilirubin Total 0.4 mg/dL (0.0-1.0); Blood Urea Nitrogen 20 mg/dL (9-16); C Reactive Protein 19.12 mg/dL (< or = 0.50); Calcium 9.9 mg/dL (8.4-10.2); Carbon Dioxide 25 mmol/L (22-29); Chloride 109 mmol/L (96-108); Creatinine Clr Calc Pharmacy 69.5; Estimated Glomerular Filt Rate > 60; Glucose Random 94 mg/dL (60-115); Lipase 15 U/L (8-78); Potassium 4.1 mmol/L (3.3-5.1); Sodium 140 mmol/L (135-145); Total Protein 7.2 g/dL (6.5-8.0)
[2023-05-20] MEDS: Morphine Sulfate 4 MG/ML CARTRIDGE IVPUSH (18:50)
[2023-05-20] MEDS: ondansetron HCL 4 MG/2 ML VIAL IVPUSH (18:51)
[2023-05-20] MEDS: 0.9 % Sodium Chloride 1,000 ML 999 ML IV (18:59)
[2023-05-20] MEDS: cefTRIAXone sodium 1 GM in 0.9 % Sodium Chloride 50 ML IV (18:59)
[2023-05-20 19:07] LABS: Erythrocyte Sedimentation Rate 67 MM/HR (0-20)
[2023-05-20] MEDS: vancomycin HCL 1,500 MG in 0.9 % Sodium Chloride 500 ML 333.33 MG IV (20:02)
[2023-05-20 20:05] VITALS: TEMP 37.3
--- NOTE | 2023-05-20 20:24 | P.HPHOSP_ITS ---
History of Present Illness Date of Service: 05/20/23 Chief Complaint: Leg infection This is a 62-year-old female with pertinent history of migraine, fibromyalgia, essential hypertension, mood disorder, asthma not on home oxygen who presents to the emergency department for evaluation of right leg swelling, redness and warmth. Off note, patient was recently admitted on 05/08 with sepsis secondary to cellulitis. She was seen by ID and discharged on 05/10 after resolution of sepsis on oral Keflex followed by oral penicillin. Patient states she has been compliant on her home antibiotics. Her symptoms had resolved during hospital stay but returned 1 day prior to presentation. She noticed swelling of her legs along with redness and warmth. Also had associated fevers and chills at home. Did not take temperature at home. Patient denies palpitations, chest discomfort, shortness of breath, abdominal pain, changes in urinary or bowel habits. In the emergency department, extensive cellulitis seen in the right lower extremity. White count was noted to be elevated Review of Systems Constitutional: Constitutional: Reports chills, Reports fatigue and Reports fever(s) Cardiovascular: Cardiovascular: Reports no additional cardiovascular complaints Respiratory: Respiratory: Reports no additional respiratory complaints Gastrointestinal: Gastrointestinal: Reports no additional gastrointestinal complaints Genitourinary: Genitourinary: Reports no additional female genitourinary complaints Musculoskeletal: Musculoskeletal: Reports myalgias Endocrine: Endocrine: Reports fatigue REPLACED BY [facility] Medical History Anemia Anemia Arthritis Asthma Back pain with right-sided radiculopathy Breast pain Cervical cancer Chronic kidney disease, stage 3 Depression Dyspnea on exertion Fibromyalgia, primary History of cervical cancer HTN (hypertension) Hypertension Migraines Neurogenic bladder, NOS Recurrent cellulitis of lower extremity Surgical History H/O: hysterectomy Social History Household Members: None Housing: House Do you presently have visiting nurse or other home services: No Alcohol intake: former Patient Tobacco Use Status: Never used Tobacco Tobacco use type: Cigarette Cigarettes Per Day: 4 Smoked in Last 30 Days: Yes Second Hand Smoke Exposure: No Use of substances other than those prescribed or required for medical reasons: No Advance Directives: No Advance Directives Information Provided: No Advance Directives Date on File: 12/05/16 Patient : No service: No Current occupational status: unemployed Meds Allergies Allergy/AdvReac Type Severity Reaction Status Date / Time buspirone [From BuSpar] Allergy Mild Tongue Verified 05/09/23 00:58 Swelling, dizziness ibuprofen [From Motrin] AdvReac Mild Rash, HTN Verified 05/09/23 00:58 Home Medications Medication Instructions Recorded Confirmed Last Taken Type acetaminophen 650 mg 2 tab PO Q8H PRN pain 10/11/22 05/08/23 Unknown History tablet,extended release docusate sodium 100 mg capsule 1 cap PO DAILY constipation 10/11/22 05/20/23 Unknown History lisinopril 40 mg tablet 1 tab PO DAILY 10/11/22 05/20/23 Unknown History metoprolol succinate 25 mg 1 tab PO DAILY 10/11/22 05/20/23 Unknown History tablet,extended release 24 hr nitroglycerin 0.4 mg sublingual 1 tab sublingual Q5M PRN Angina 10/11/22 05/08/23 Unknown History tablet sumatriptan succinate 25 mg tablet 25 mg PO DAILY PRN Migraine 10/11/22 05/08/23 Unknown History Headache celecoxib 50 mg capsule 50 mg PO DAILY 05/08/23 05/20/23 Unknown History duloxetine 30 mg capsule,delayed 30 mg PO DAILY 05/08/23 05/20/23 Unknown History release multivitamin-ferrous 1 tab PO DAILY 05/08/23 05/20/23 Unknown History fumarate-folic acid 18 mg-400 mcg tablet (Certavite-Antioxidant) polyethylene glycol 3350 17 17 g PO DAILY 05/08/23 05/08/23 Unknown History gram/dose oral powder trazodone 50 mg tablet 50 mg PO BEDTIME 05/08/23 05/20/23 Unknown History white petrolatum 42 % topical 1 appl topical DAILY PRN Dry Skin 05/08/23 05/08/23 Unknown History ointment Physical Exam Vital Signs and Narrative: Vital Signs: Last Vital Signs Temp 99.2 F 05/20/23 20:05 Pulse 89 05/20/23 17:51 Resp 18 05/20/23 17:51 BP 129/88 05/20/23 17:51 Pulse Ox 97 05/20/23 17:51 O2 Del Method Room Air 05/20/23 17:51 BMI result Body Mass Index 33.0 Middle-aged female lying in bed in no distress Neck supple, no JVD Regular rate and rhythm, S1-S2 heard Regular breath sounds bilaterally, no wheezing or crackles appreciated Abdomen soft nontender, no guarding, no rigidity Patient is awake, alert and oriented to self, place, time and person ; no focal motor deficit Extremity: Right lower extremity with warmth, swelling, tenderness and erythema Psych: Normal mood No pedal edema Results Labs 05/20/23 18:21 05/20/23 18:21 Labs: Laboratory Results - last 24 hr 05/20/23 05/20/23 05/20/23 18:21 18:21 18:21 MCV 80.5 MCH 25.1 L MCHC 31.2 RDW 15.7 Plt Count 283 MPV 11.0 Immature Gran % (Auto) 0.6 H Neut % (Auto) 78.5 H Lymph % (Auto) 16.7 L [place] % (Auto) 3.3 Eos % (Auto) 0.7 Baso % (Auto) 0.2 Lymph # (Auto) 2.3 [place] # (Auto) 0.5 Eos # (Auto) 0.1 Baso # (Auto) 0.0 Abs Immat Gran (auto) 0.08 H Absolute Neuts (auto) 10.8 H Absolute Nucleated RBC 0.000 Nucleated RBC % (auto) 0.0 ESR 67 H Anion Gap 10 L Estim Creat Clear Calc 69.5 Estimated GFR > 60 Random Glucose 94 Lactic Acid Calcium 9.9 Total Bilirubin 0.4 AST 38 H ALT 40 H Alkaline Phosphatase 76 C-Reactive Protein 19.12 H Total Protein 7.2 Albumin 3.9 Lipase 15 05/20/23 18:21 MCV MCH MCHC RDW Plt Count MPV Immature Gran % (Auto) Neut % (Auto) Lymph % (Auto) [place] % (Auto) Eos % (Auto) Baso % (Auto) Lymph # (Auto) [place] # (Auto) Eos # (Auto) Baso # (Auto) Abs Immat Gran (auto) Absolute Neuts (auto) Absolute Nucleated RBC Nucleated RBC % (auto) ESR Anion Gap Estim Creat Clear Calc Estimated GFR Random Glucose Lactic Acid 0.8 Calcium Total Bilirubin AST ALT Alkaline Phosphatase C-Reactive Protein Total Protein Albumin Lipase Assessment and Plan (1) Recurrent cellulitis of lower extremity: Status: Acute Plan This is a 62-year-old female with pertinent history of migraine, fibromyalgia, essential hypertension, mood disorder, asthma not on home oxygen who presents to the emergency department for evaluation of right leg swelling, redness and warmth. #. Right lower extremity cellulitis, recurrent. Failed outpatient p.o. antibiotics. Will admit with empiric IV antibiotics. Blood cultures pending. Consulted Infectious Disease, appreciate assistance #. Essential hypertension. Continue home antihypertensives #. Mood disorder. Continue home mood stabilizers #. Normocytic anemia. Hemoglobin above transfusion threshold #. Asthma. No exacerbation during admission. Continue home inhalers Med rec pending DVT prophylaxis: Lovenox Full code Admit as inpatient and will require two night minimum hospital stay for IV antibiotics. Specialist consult pending Time Spent With Patient Time: Total time managing care of this patient today ____ minutes. Quality Stroke Does the patient have a stroke diagnosis?: No VTE Prior VTE?: No VTE Risk Level:: Medical - moderate - high VTE Device Contraindication: Treatment Not Indicated VTE Drug Contraindication: N/A - Med Ordered
[2023-05-20 20:44] VITALS: BP 141/85; PULSE 94; RESP 16; O2SAT 98
[2023-05-20] MEDS: Enoxaparin Sodium 40 MG/0.4 ML SYRINGE SUBCUT (20:44)
[2023-05-20] MEDS: Ketorolac Tromethamine 30 MG/ML VIAL IVPUSH (20:49)
--- NOTE | 2023-05-20 20:50 | PC.NURSE ---
pt medicated according to mar. pt has reaction to ibuprofen- which elevates pt's bp. this rn discussed this with dr ling. per dr ling pt okay to have ketorolac ivp as pt takes nsaid at home with no reaction. pt agreeable
--- NOTE | 2023-05-20 21:03 | PC.NURSE ---
late entry- pharmacist called stated that loading dose of vanco is typically 2gm. per pharmacist continue 1.5gm as previously given and administer additional 500mg once 105gm has completed
[2023-05-20 21:54] VITALS: BP 124/59; PULSE 91; RESP 18; TEMP 36.5; O2SAT 97
[2023-05-20] MEDS: vancomycin HCL 500 MG in 0.9 % Sodium Chloride 100 ML 110 MG IV (22:42)
[2023-05-20 23:51] VITALS: BP 128/66; PULSE 82; RESP 18; TEMP 36.3; O2SAT 98
[2023-05-21] MEDS: 0.9 % Sodium Chloride Flush 3 ML SYRINGE IVFLUSH ×3 (00:36→17:10)
[2023-05-21] MEDS: traMADoL HCL 50 MG TABLET PO (00:39)
[2023-05-21] MEDS: traZODone HCL 50 MG TABLET PO ×2 (00:39→20:35)
[2023-05-21] MEDS: diphenhydrAMINE HCL 50 MG/ML VIAL IVPUSH (00:40)
[2023-05-21 03:52] VITALS: BP 137/93; PULSE 84; RESP 18; TEMP 36.2; O2SAT 97
[2023-05-21 03:57] LABS: Appearance Urine Cloudy; Color Urine Dark Yellow; Glucose Urine UA Negative (Negative); Leukocyte Esterase Urine Negative (Negative); Nitrite Urine Negative (Negative); PH 5.5 (5.0-9.0); Specific Gravity - Urine >= 1.030 (1.005-1.025); UMIC TRIGGER UACC YES; Urine Blood Negative (Negative); Urine Ketones Trace mg/dL (Negative); Urine Protein 30 (1+) mg/dL (Neg-Trace)
[2023-05-21 04:08] LABS: Bacteria Urine None Seen (None Seen); Granular Casts Urine Present; WBC Urine 0-5 /HPF (0-5)
[2023-05-21 06:33] LABS: MANUAL DIFF FLAG NO
[2023-05-21 06:39] LABS: Basophils Percent Auto 0.2 % (0-2); Eosinophils Absolute Auto 0.1 X10*3/uL (0.0-0.4); Hematocrit 27.9 % (37.0-47.0); Hemoglobin 8.6 g/dl (12.0-16.0); Imm Gran Abs Auto 0.03 X10*3/uL (0.00-0.03); Imm Gran Pct Auto 0.3 % (0.0-0.4); Lymphocytes Absolute Auto 2.9 X10*3/uL (1.2-4.9); Lymphocytes Percent Auto 30.1 % (20-40); Mean Corpuscular HGB Conc 30.8 g/dl (31.0-35.0); Mean Corpuscular Hemoglobin 25.1 pg (27.0-33.0); Mean Corpuscular Volume 81.6 fL (80.0-98.0); Mean Platelet Volume 11.5 fL (9.4-12.3); Monocytes Absolute Auto 0.6 X10*3/uL (0.1-1.2); Neutrophils Absolute Auto 6.1 x10*3/uL (2.0-8.3); Neutrophils Percent Auto 62.4 % (45-73); Platelet Count 241 X10*3/uL (160-400); Red Blood Count 3.42 X10*6/uL (4.20-5.50); Red Cell Distribution Width 15.9 % (11.0-16.0); White Blood Count 9.8 X10*3/uL (4.8-10.8)
[2023-05-21 06:53] LABS: Anion Gap 8 (12-20); Blood Urea Nitrogen 17 mg/dL (9-16); Calcium 9.1 mg/dL (8.4-10.2); Carbon Dioxide 24 mmol/L (22-29); Chloride 112 mmol/L (96-108); Creatinine Clr Calc Pharmacy 72.7; Estimated Glomerular Filt Rate > 60; Glucose Random 83 mg/dL (60-115); Potassium 4.2 mmol/L (3.3-5.1); Sodium 140 mmol/L (135-145)
[2023-05-21 08:00] VITALS: BP 131/66; PULSE 93; RESP 18; TEMP 36.5; O2SAT 96
--- NOTE | 2023-05-21 08:31 | PHA.PROG ---
Admission Date/Time: May 20, 2023 20:22 Indication: Skin Weight in k.3 kg Adjusted body weight in Kg: Clark body weight in Kg: Obesity Dosing Indication % IBW: obese model being used Serum Creatinine - Last 168 Hours 05/20/23 05/21/23 18:21 05:40 Creatinine 0.92 0.88 Estimated CrCl and GFR - Last 168 Hours 05/20/23 05/21/23 18:21 05:40 Estim Creat Clear Calc 69.5 72.7 Estimated GFR > 60 > 60 Vancomycin Loading Dose: 2000mg x 1 Current Vancomycin Dosing Regimen: 1250mg Q24H Vancomycin Monitoring using AUC goal of 400 - 600 range with trough as surrogate marker: 458 mg/L Date and Time for next Vancomycin Level to be drawn: 05/23/23 @1800 Pharmacist Comments on Vancomycin Plan: Obese model being utilized, predicted trough of 11.4 mg/L; will continue to monitor renal function and adjust accordingly Vancomycin dosing will take advantage of [employer] as a clinical decision support tool that uses Bayesian modeling to calculate individual patient's pharmacokinetic parameters and forecast the patient's drug concentration time course with the target goal AUC 24 range of 400 - 600 mg/L/hr.
--- NOTE | 2023-05-21 08:47 | PHA.MEDREC ---
Pharmacy Consult ? Medication Reconciliation Med rec confirm with patient Discharge summary from 05/10/23 Pharmacy has completed the medication reconciliation.
--- NOTE | 2023-05-21 08:58 | MHC.CM.PN ---
CM MET WITH PT AT BEDSIDE. DISCOURAGED BECAUSE SHE IS BACK IN THE HOSPITAL. HAS [facility] AT HOME. + COVID [facility] DECLINES HCP AT THIS TIME. PCP VANNESSA MISHRA AT [facility]. DP: HOME WITH RESUMPTION OF [facility]. PT HAS OWN [facility] HOME. CM WILL CONTINUE TO FOLLOW FOR ANY CHANGE TO DC PLAN/NEEDS.
[2023-05-21] MEDS: DULoxetine HCl 30 MG CAPSULE.DR PO (11:32)
[2023-05-21] MEDS: Metoprolol Succinate ER 25 MG TAB.ER.24H PO (11:32)
[2023-05-21] MEDS: oxyCODONE HCl Immed Release 5 MG TABLET PO ×2 (11:32→20:34)
[2023-05-21] MEDS: lisinopriL 40 MG TABLET PO (11:32)
--- NOTE | 2023-05-21 14:27 | P.PNIM_ITS ---
Subjective Subjective Date of Service: 05/21/23 Interval History: No acute issues overnight remains afebrile Review of Systems Denies chest pain Denies shortness of breath Denies nausea vomiting diarrhea Denies fever chills Physical Exam Vital Signs: Vital Signs: Last Vital Signs Temp 97.7 F 05/21/23 08:00 Pulse 93 05/21/23 08:00 Resp 18 05/21/23 08:00 BP 131/66 05/21/23 08:00 Pulse Ox 96 05/21/23 08:00 O2 Del Method Room Air 05/21/23 08:00 BMI result Body Mass Index 33.0 Const: Other: Awake alert no acute distress Resp: Other: Clear to auscultation bilaterally no rales rhonchi or wheezes Cardio: Other: No S4; positive S1-S2; no S3 murmurs rubs or gallops GI: Other: Soft nontender nondistended normoactive bowel sounds Extrem: Other: Right lower extremity erythematous or warm. Left no edema Objective Data Active Medications Acetaminophen (Acetaminophen 325 Mg Tablet) 650 mg PO Q6H PRN PRN Reason: Pain, Mild (Pain Scale 1-3) Duloxetine HCl (Duloxetine Hcl 30 Mg Capsule.Dr) 30 mg PO DAILY [facility] Last Admin: 05/21/23 11:32 Dose: 30 mg Documented By: LUDIVINA Enoxaparin Sodium (Enoxaparin Sodium 40 Mg/0.4 Ml Syringe) 40 mg SUBCUT Q24H [facility] Last Admin: 05/20/23 20:44 Dose: 40 mg Documented By: ELIUD Vancomycin HCl 1,250 mg/ (Sodium Chloride) 250 mls @ 166.667 mls/hr IV Q24H [facility] Lisinopril (Lisinopril 40 Mg Tablet) 40 mg PO DAILY [facility]; Protocol Last Admin: 05/21/23 11:32 Dose: 40 mg Documented By: LUDIVINA Melatonin (Melatonin 3 Mg Tablet) 6 mg PO BEDTIME PRN PRN Reason: Insomnia Metoprolol Succinate (Metoprolol Succinate Er 25 Mg Tab.Er.24h) 25 mg PO DAILY [facility]; Protocol Last Admin: 05/21/23 11:32 Dose: 25 mg Documented By: LUDIVINA Non-Formulary Medication (Celecoxib) 50 mg PO DAILY [facility] Ondansetron HCl (Ondansetron Hcl 4 Mg/2 Ml Vial) 4 mg IVPUSH Q8H PRN PRN Reason: Nausea and Vomiting Oxycodone HCl (Oxycodone Hcl Immed Release 5 Mg Tablet) 5 mg PO Q4H PRN PRN Reason: Pain, Mild (Pain Scale 1-3) Last Admin: 05/21/23 11:32 Dose: 5 mg Documented By: LUDIVINA Pharmacy Consult (Consult Rx Vancomycin Dosing) 1 each MISCELLANE DAILY PRN PRN Reason: Consult order Sodium Chloride (0.9 % Sodium Chloride Flush 3 Ml Syringe) 3 ml IVFLUSH QSHIFT [facility] Last Admin: 05/21/23 11:01 Dose: 3 ml Documented By: DANTE Sumatriptan Succinate (Sumatriptan Succinate 25 Mg Tablet) 25 mg PO DAILY PRN PRN Reason: Migraine Headache Trazodone HCl (Trazodone Hcl 50 Mg Tablet) 50 mg PO BEDTIME [facility] Labs 05/21/23 05:40 05/21/23 05:40 Labs: Laboratory Results - last 24 hr 05/20/23 05/20/23 05/20/23 18:21 18:21 18:21 MCV 80.5 MCH 25.1 L MCHC 31.2 RDW 15.7 Plt Count 283 MPV 11.0 Immature Gran % (Auto) 0.6 H Neut % (Auto) 78.5 H Lymph % (Auto) 16.7 L [place] % (Auto) 3.3 Eos % (Auto) 0.7 Baso % (Auto) 0.2 Lymph # (Auto) 2.3 [place] # (Auto) 0.5 Eos # (Auto) 0.1 Baso # (Auto) 0.0 Abs Immat Gran (auto) 0.08 H Absolute Neuts (auto) 10.8 H Absolute Nucleated RBC 0.000 Nucleated RBC % (auto) 0.0 ESR 67 H Anion Gap 10 L Estim Creat Clear Calc 69.5 Estimated GFR > 60 Random Glucose 94 Lactic Acid Calcium 9.9 Total Bilirubin 0.4 AST 38 H ALT 40 H Alkaline Phosphatase 76 C-Reactive Protein 19.12 H Total Protein 7.2 Albumin 3.9 Lipase 15 Urine Color Urine Appearance Urine pH Ur Specific [place] Urine Protein Urine Glucose (UA) Urine Ketones Urine Blood Urine Nitrite Ur Leukocyte Esterase Urine RBC Urine WBC Ur Squamous Epith Cells Urine Bacteria Hyaline Casts Granular Casts 09/03/23 09/04/23 09/04/23 18:21 03:30 05:40 MCV 81.6 MCH 25.1 L MCHC 30.8 L RDW 15.9 Plt Count 241 MPV 11.5 Immature Gran % (Auto) 0.3 Neut % (Auto) 62.4 Lymph % (Auto) 30.1 [place] % (Auto) 6.0 Eos % (Auto) 1.0 Baso % (Auto) 0.2 Lymph # (Auto) 2.9 [place] # (Auto) 0.6 Eos # (Auto) 0.1 Baso # (Auto) 0.0 Abs Immat Gran (auto) 0.03 Absolute Neuts (auto) 6.1 Absolute Nucleated RBC 0.000 Nucleated RBC % (auto) 0.0 ESR Anion Gap Estim Creat Clear Calc Estimated GFR Random Glucose Lactic Acid 0.8 Calcium Total Bilirubin AST ALT Alkaline Phosphatase C-Reactive Protein Total Protein Albumin Lipase Urine Color Dark Yellow Urine Appearance Cloudy Urine pH 5.5 Ur Specific [place] >= 1.030 H Urine Protein 30 (1+) H Urine Glucose (UA) Negative Urine Ketones Trace Urine Blood Negative Urine Nitrite Negative Ur Leukocyte Esterase Negative Urine RBC 3-5 H Urine WBC 0-5 Ur Squamous Epith Cells 6-10 Urine Bacteria None Seen Hyaline Casts 6-10 Granular Casts Present 05/21/23 05:40 MCV MCH MCHC RDW Plt Count MPV Immature Gran % (Auto) Neut % (Auto) Lymph % (Auto) [place] % (Auto) Eos % (Auto) Baso % (Auto) Lymph # (Auto) [place] # (Auto) Eos # (Auto) Baso # (Auto) Abs Immat Gran (auto) Absolute Neuts (auto) Absolute Nucleated RBC Nucleated RBC % (auto) ESR Anion Gap 8 L Estim Creat Clear Calc 72.7 Estimated GFR > 60 Random Glucose 83 Lactic Acid Calcium 9.1 D Total Bilirubin AST ALT Alkaline Phosphatase C-Reactive Protein Total Protein Albumin Lipase Urine Color Urine Appearance Urine pH Ur Specific [place] Urine Protein Urine Glucose (UA) Urine Ketones Urine Blood Urine Nitrite Ur Leukocyte Esterase Urine RBC Urine WBC Ur Squamous Epith Cells Urine Bacteria Hyaline Casts Granular Casts Assessment and Plan (1) Recurrent cellulitis of lower extremity: Status: Acute (2) Hypertension: Status: Acute (3) Neurogenic bladder, NOS: Status: Acute (4) Chronic kidney disease, stage 3: Status: Acute Plan ?62-year-old female with pertinent history of migraine, fibromyalgia, essential hypertension, mood disorder, asthma not on home oxygen who presents to the emergency department for evaluation of right leg swelling, redness and warmth in the backdrop of chronic/recurrent cellulitis. She has failed outpatient therap ies 1.Right lower extremity cellulitis -continue vancomycin (2). Add 1 dose ceftriaxone pending ID input -some degree tinea noted in webspace of foot; chlotrimazole cream b.i.d. -elevate leg 2.Essential hypertension -acceptable control on current therapies -adjust as indicated 3. Neurogenic bladder -patient to self catheterization as per home regimen 4. CKD 3 -at baseline -follow renals/divalents Full code Lovenox Patient will require ongoing hospitalization for IV antibiotics to treat ce llulitis that has failed outpatient therapies #.? Mood disorder.? Continue home mood stabilizers #.? Normocytic anemia.? Hemoglobin above transfusion threshold #.? Asthma.? No exacerbation during admission.? Continue home inhalers Med rec pending DVT prophylaxis:? Lovenox Full code Time Spent With Patient Time: Total time managing care of this patient today ____ minutes. Quality Stroke Does the patient have a stroke diagnosis?: No VTE Prior VTE?: No VTE Risk Level:: Medical - moderate - high VTE Device Contraindication: Treatment Not Indicated VTE Drug Contraindication: N/A - Med Ordered
[2023-05-21 15:19] VITALS: BP 120/74; PULSE 93; RESP 18; TEMP 36.3; O2SAT 93
[2023-05-21] MEDS: Clotrimazole 1 % Cream 15 GM TUBE 1 APPL TOPICAL (17:12)
[2023-05-21 19:45] VITALS: BP 141/64; PULSE 99; RESP 18; TEMP 36.4; O2SAT 97
[2023-05-21] MEDS: vancomycin HCL 1,250 MG in 0.9 % Sodium Chloride 250 ML 166.67 MG IV (20:34)
[2023-05-21] MEDS: Enoxaparin Sodium 40 MG/0.4 ML SYRINGE SUBCUT (20:35)
--- NOTE | 2023-05-21 20:49 | PC.NURSE ---
Patient self cath herself twice this shift for total of 500 ml yellow urine
[2023-05-22] MEDS: 0.9 % Sodium Chloride Flush 3 ML SYRINGE IVFLUSH ×3 (02:01→15:36)
[2023-05-22] MEDS: oxyCODONE HCl Immed Release 5 MG TABLET PO ×3 (02:05→16:01)
[2023-05-22 03:49] VITALS: BP 174/81; PULSE 85; RESP 16; TEMP 36; O2SAT 98
[2023-05-22 06:15] LABS: MANUAL DIFF FLAG NO
[2023-05-22 06:18] LABS: Basophils Percent Auto 0.4 % (0-2); Eosinophils Absolute Auto 0.1 X10*3/uL (0.0-0.4); Eosinophils Percent Auto 1.7 % (0-4); Hematocrit 27.5 % (37.0-47.0); Hemoglobin 8.5 g/dl (12.0-16.0); Imm Gran Abs Auto 0.03 X10*3/uL (0.00-0.03); Imm Gran Pct Auto 0.4 % (0.0-0.4); Lymphocytes Absolute Auto 3.9 X10*3/uL (1.2-4.9); Lymphocytes Percent Auto 46.8 % (20-40); Mean Corpuscular HGB Conc 30.9 g/dl (31.0-35.0); Mean Corpuscular Hemoglobin 24.6 pg (27.0-33.0); Mean Corpuscular Volume 79.7 fL (80.0-98.0); Mean Platelet Volume 10.8 fL (9.4-12.3); Monocytes Absolute Auto 0.7 X10*3/uL (0.1-1.2); Monocytes Percent Auto 8.5 % (2-11); Neutrophils Absolute Auto 3.5 x10*3/uL (2.0-8.3); Neutrophils Percent Auto 42.2 % (45-73); Platelet Count 226 X10*3/uL (160-400); Red Blood Count 3.45 X10*6/uL (4.20-5.50); Red Cell Distribution Width 15.8 % (11.0-16.0); White Blood Count 8.2 X10*3/uL (4.8-10.8)
[2023-05-22 06:39] LABS: Alanine Aminotransferase 25 U/L (0-31); Albumin Level 3.3 g/dL (3.5-5.0); Alkaline Phosphatase 62 U/L (39-117); Anion Gap 10 (12-20); Aspartate Amino Transferase 17 U/L (5-31); Bilirubin Total 0.3 mg/dL (0.0-1.0); Blood Urea Nitrogen 11 mg/dL (9-16); Calcium 9.4 mg/dL (8.4-10.2); Carbon Dioxide 26 mmol/L (22-29); Chloride 107 mmol/L (96-108); Creatinine Clr Calc Pharmacy 88.8; Estimated Glomerular Filt Rate > 60; Glucose Fasting 87 mg/dL (60-99); Sodium 139 mmol/L (135-145); Total Protein 6.4 g/dL (6.5-8.0)
[2023-05-22 07:02] VITALS: BP 128/78; PULSE 78; RESP 16; TEMP 36.1; O2SAT 98
--- NOTE | 2023-05-22 07:07 | HE.PHANOTE ---
RE: VANCO Patients Scr got better. Therefore [facility] as suggesting to increase dose before first level as 1250 mg Q24H was showing sub therapeutic. increased dose to 1500 mg. Level to be drawn 05/23 @1800
[2023-05-22] MEDS: DULoxetine HCl 30 MG CAPSULE.DR PO (07:35)
[2023-05-22] MEDS: Metoprolol Succinate ER 25 MG TAB.ER.24H PO (07:35)
[2023-05-22] MEDS: lisinopriL 40 MG TABLET PO (07:36)
[2023-05-22] MEDS: Clotrimazole 1 % Cream 15 GM TUBE 1 APPL TOPICAL ×2 (07:36→19:51)
--- NOTE | 2023-05-22 12:34 | HO.PM.IMPN ---
Subjective Subjective Date of Service: 05/22/23 Interval History: No acute issues overnight ,remains afebrile Review of Systems denies any chest pain or sob has right leg pain Physical Exam Vital Signs: Vital Signs: Last Vital Signs Temp 97 F 05/22/23 07:02 Pulse 78 05/22/23 07:02 Resp 16 05/22/23 07:02 BP 128/78 05/22/23 07:02 Pulse Ox 98 05/22/23 07:02 O2 Del Method Room Air 05/22/23 07:02 BMI result Body Mass Index 33.0 Appearance: Alert.? Oriented X3.? cvs: rrr, [id number] . res: clear to auscultation ,no rhonchii or wheezing abd: no rebound or guarding ,nt, bs present. ext pulses present , no cyanosis. right leg -pain/warm,?erythema neuro: axo3 , nonfocal. Objective Data Active Medications Acetaminophen (Acetaminophen 325 Mg Tablet) 650 mg PO Q6H PRN PRN Reason: Pain, Mild (Pain Scale 1-3) Clotrimazole (Clotrimazole 1 % Cream 15 Gm Tube) 1 appl TOPICAL BID [facility]; Protocol Last Admin: 05/22/23 07:36 Dose: 1 appl Documented By: YEVGENIY Duloxetine HCl (Duloxetine Hcl 30 Mg Capsule.) 30 mg PO DAILY [facility] Last Admin: 05/22/23 07:35 Dose: 30 mg Documented By: YEVGENIY Enoxaparin Sodium (Enoxaparin Sodium 40 Mg/0.4 Ml Syringe) 40 mg SUBCUT Q24H [facility] Last Admin: 05/21/23 20:35 Dose: 40 mg Documented By: LAUREN Vancomycin HCl 1,500 mg/ (Sodium Chloride) 500 mls @ 333.333 mls/hr IV Q24H [facility] Lisinopril (Lisinopril 40 Mg Tablet) 40 mg PO DAILY [facility]; Protocol Last Admin: 05/22/23 07:36 Dose: 40 mg Documented By: YEVGENIY Melatonin (Melatonin 3 Mg Tablet) 6 mg PO BEDTIME PRN PRN Reason: Insomnia Metoprolol Succinate (Metoprolol Succinate Er 25 Mg Tab.Er.24h) 25 mg PO DAILY [facility]; Protocol Last Admin: 05/22/23 07:35 Dose: 25 mg Documented By: YEVGENIY Non-Formulary Medication (Celecoxib) 50 mg PO DAILY [facility] Ondansetron HCl (Ondansetron Hcl 4 Mg/2 Ml Vial) 4 mg IVPUSH Q8H PRN PRN Reason: Nausea and Vomiting Oxycodone HCl (Oxycodone Hcl Immed Release 5 Mg Tablet) 5 mg PO Q4H PRN PRN Reason: Pain, Mild (Pain Scale 1-3) Last Admin: 05/22/23 11:59 Dose: 5 mg Documented By: REJI Pharmacy Consult (Consult Rx Vancomycin Dosing) 1 each MISCELLANE DAILY PRN PRN Reason: Consult order Sodium Chloride (0.9 % Sodium Chloride Flush 3 Ml Syringe) 3 ml IVFLUSH QSHIFT [facility] Last Admin: 05/22/23 07:36 Dose: 3 ml Documented By: YEVGENIY Sumatriptan Succinate (Sumatriptan Succinate 25 Mg Tablet) 25 mg PO DAILY PRN PRN Reason: Migraine Headache Trazodone HCl (Trazodone Hcl 50 Mg Tablet) 50 mg PO BEDTIME [facility] Last Admin: 05/21/23 20:35 Dose: 50 mg Documented By: ADOLFOIT Labs 05/22/23 05:54 05/22/23 05:54 Labs: Laboratory Results - last 24 hr 05/22/23 05/22/23 05:54 05:54 MCV 79.7 L MCH 24.6 L MCHC 30.9 L RDW 15.8 Plt Count 226 MPV 10.8 Immature Gran % (Auto) 0.4 Neut % (Auto) 42.2 L Lymph % (Auto) 46.8 H [place] % (Auto) 8.5 Eos % (Auto) 1.7 Baso % (Auto) 0.4 Lymph # (Auto) 3.9 [place] # (Auto) 0.7 Eos # (Auto) 0.1 Baso # (Auto) 0.0 Abs Immat Gran (auto) 0.03 Absolute Neuts (auto) 3.5 Absolute Nucleated RBC 0.000 Nucleated RBC % (auto) 0.0 Anion Gap 10 L Estim Creat Clear Calc 88.8 Estimated GFR > 60 Fasting Glucose 87 Calcium 9.4 Total Bilirubin 0.3 AST 17 ALT 25 Alkaline Phosphatase 62 Total Protein 6.4 L Albumin 3.3 L Microbiology Microbiology Results: Microbiology 05/20/23 18:43 Blood Culture - Preliminary Blood - Venous No growth after 24 hours. 05/20/23 18:21 Blood Culture - Preliminary Blood - Venous No growth after 24 hours. Assessment and Plan (1) Recurrent cellulitis of lower extremity: Status: Acute (2) Hypertension: Status: Acute (3) Neurogenic bladder, NOS: Status: Acute (4) Chronic kidney disease, stage 3: Status: Acute Plan ?62-year-old female with pertinent history of migraine, fibromyalgia, essential hypertension, mood disorder, asthma not on home oxygen who presents to the emergency department for evaluation of right leg swelling, redness and warmth in the backdrop of chronic/recurrent cellulitis. She has failed outpatient therapies 1.Right lower extremity cellulitis dvt studies right leg neg ct right leg-?Mild subcutaneous stranding/inflammation in the medial proximal right thigh. continue vancomycin (started on 05/20). Add 1 dose ceftriaxone ,also thought to be some degree tinea noted in webspace of foot; chlotrimazole cream b.i.d. vanco trough management as per pharmacy ID kathleen. 2.Essential hypertension -acceptable control on current therapies -adjust as indicated 3. Neurogenic bladder -patient to self catheterization as per home regimen 4. CKD 3 -at baseline -follow renals/divalents 5. Asthma.? No exacerbation during admission.? Continue home inhalers. DVT prophylaxis:? Lovenox Full code Patient will require ongoing hospitalization for IV antibiotics to treat cellulitis that has failed outpatient therapies Time Spent With Patient Time: Total time managing care of this patient today ____ minutes. Quality Stroke Does the patient have a stroke diagnosis?: No VTE Prior VTE?: No VTE Risk Level:: Medical - moderate - high VTE Device Contraindication: Treatment Not Indicated VTE Drug Contraindication: N/A - Med Ordered
[2023-05-22 15:23] VITALS: BP 123/77; PULSE 69; RESP 20; TEMP 36.2; O2SAT 97
[2023-05-22] MEDS: Acetaminophen 325 MG TABLET 650 MG PO (15:35)
--- NOTE | 2023-05-22 17:00 | P.CDIM_ITS ---
PROVIDER RESPONSE TEXT: To clarify, the appropriate diagnosis supported by the clinical indicators: Mild intermittent: no excerebation QUERY TEXT: PHYSICIAN'S DOCUMENTATION REQUEST Date of Query: 05/22/2023 02:36 PM EDT Patient Name: Nadege Lee Admit Date: 05/21/2023 Dear Virginia Wilson, A review of the medical record indicates additional documentation may be needed. Please review below and update the documentation accordingly. The diagnosis of asthma was documented in the record on 05/22/23. Additional clinical indicators from the record include: Per Hospitalist Progress Note: Asthma. No exacerbation during admission. Continue home inhalers. Based on the above, please clarify in the Progress Notes further specificity regarding the type and a cuity of the asthma: Mild intermittent Please specify if with or without acute exacerbation or status asthmaticus Mild persistent Please specify if with or without acute exacerbation or status asthmaticus Moderate persistent Please specify if with or without acute exacerbation or status asthmaticus Severe persistent Please specify if with or without acute exacerbation or status asthmaticus Exercise induced Please specify if with or without acute exacerbation or status asthmaticus Chronic obstructive asthma and indicate if with acute lower respiratory infection Please specify if with or without acute exacerbation or status asthmaticus Asthma with underlying COPD and indicate if with acute lower respiratory infection Please specify if with or without acute exacerbation or status asthmaticus Other (explain)Clinically unable to determine (explain)Thank you, Cyndy Diehl RN Use of terms such as suspected, likely, concern for, or probable (associated with a specific diagnosi s that is being evaluated, monitored, or treated as if it exists) are acceptable and can be coded in the inpatient se tting, when documented at the time of discharge. Please use your independent medical judgment in providing your response. THIS QUERY IS PART OF THE PERMANENT MEDICAL RECORD
[2023-05-22 19:45] VITALS: BP 125/72; PULSE 69; RESP 18; TEMP 36.1; O2SAT 98
[2023-05-22] MEDS: traZODone HCL 50 MG TABLET PO (19:49)
[2023-05-22] MEDS: vancomycin HCL 1,500 MG in 0.9 % Sodium Chloride 500 ML 333.33 MG IV (19:50)
[2023-05-22] MEDS: Enoxaparin Sodium 40 MG/0.4 ML SYRINGE SUBCUT (19:50)
--- NOTE | 2023-05-22 23:22 | W.PM.IDCN ---
History of Present Illness Data of Consult Service Date: 05/22/23 Requesting physician: Virginia Wilson Primary Care Provider: Lilly Cowart MD HPI Reason for consult: recurrent right cellulitis She presents with right leg red and swollen from knee down. She felt chilled. She has had recurrent cellulitis and has been admitted and started on po PCN V 250 mg bid as outpatient which she is on now. She has had right TKR from [facility]. Review of Systems Review of Systems: Yes all other systems are reviewed and are negative [facility] Past Medical History Medical History Anemia Anemia Arthritis Asthma Back pain with right-sided radiculopathy Breast pain Cervical cancer Chronic kidney disease, stage 3 Depression Dyspnea on exertion Fibromyalgia, primary History of cervical cancer HTN (hypertension) Hypertension Migraines Neurogenic bladder, NOS Recurrent cellulitis of lower extremity Family History Family history: reviewed and not pertinent Surgical History Surgical History H/O: hysterectomy Social History Social History Household Members: Family Housing: House Do you presently have visiting nurse or other home services: No Alcohol intake: former Patient Tobacco Use Status: Current everyday Tobacco user Tobacco use type: Cigarette Cigarette Packs Per Day: 0.4 Cigarettes Per Day: 8.0 Years Smoked: 40 e-Cigarette/Vaping Use: Never Used Second Hand Smoke Exposure: No Advance Directives Date on File: 12/05/16 service: No Current occupational status: unemployed Meds Allergies Allergy/AdvReac Type Severity Reaction Status Date / Time buspirone [From BuSpar] Allergy Mild Tongue Verified 05/09/23 00:58 Swelling, dizziness ibuprofen [From Motrin] AdvReac Mild Rash, HTN Verified 05/09/23 00:58 Active Medications: Current Medications Acetaminophen (Acetaminophen 325 Mg Tablet) 650 mg PO Q6H PRN PRN Reason: Pain, Mild (Pain Scale 1-3) Last Admin: 05/22/23 15:35 Dose: 650 mg Clotrimazole (Clotrimazole 1 % Cream 15 Gm Tube) 1 appl TOPICAL BID [facility]; Protocol Last Admin: 05/22/23 19:51 Dose: 1 appl Duloxetine HCl (Duloxetine Hcl 30 Mg Capsule.Dr) 30 mg PO DAILY [facility] Last Admin: 05/22/23 07:35 Dose: 30 mg Enoxaparin Sodium (Enoxaparin Sodium 40 Mg/0.4 Ml Syringe) 40 mg SUBCUT Q24H [facility] Last Admin: 05/22/23 19:50 Dose: 40 mg Vancomycin HCl 1,500 mg/ (Sodium Chloride) 500 mls @ 333.333 mls/hr IV Q24H [facility] Last Infusion: 05/22/23 21:50 Dose: Infused Lisinopril (Lisinopril 40 Mg Tablet) 40 mg PO DAILY [facility]; Protocol Last Admin: 05/22/23 07:36 Dose: 40 mg Melatonin (Melatonin 3 Mg Tablet) 6 mg PO BEDTIME PRN PRN Reason: Insomnia Metoprolol Succinate (Metoprolol Succinate Er 25 Mg Tab.Er.24h) 25 mg PO DAILY [facility]; Protocol Last Admin: 05/22/23 07:35 Dose: 25 mg Non-Formulary Medication (Celecoxib) 50 mg PO DAILY [facility] Ondansetron HCl (Ondansetron Hcl 4 Mg/2 Ml Vial) 4 mg IVPUSH Q8H PRN PRN Reason: Nausea and Vomiting Oxycodone HCl (Oxycodone Hcl Immed Release 5 Mg Tablet) 5 mg PO Q4H PRN PRN Reason: Pain, Mild (Pain Scale 1-3) Last Admin: 05/22/23 16:01 Dose: 5 mg Pharmacy Consult (Consult Rx Vancomycin Dosing) 1 each MISCELLANE DAILY PRN PRN Reason: Consult order Sodium Chloride (0.9 % Sodium Chloride Flush 3 Ml Syringe) 3 ml IVFLUSH QSHIFT [facility] Last Admin: 05/22/23 15:36 Dose: 3 ml Sumatriptan Succinate (Sumatriptan Succinate 25 Mg Tablet) 25 mg PO DAILY PRN PRN Reason: Migraine Headache Trazodone HCl (Trazodone Hcl 50 Mg Tablet) 50 mg PO BEDTIME [facility] Last Admin: 05/22/23 19:49 Dose: 50 mg Home Medications Medication Instructions Recorded Confirmed Last Taken Type acetaminophen 650 mg 2 tab PO Q8H PRN pain 10/11/22 05/21/23 Unknown History tablet,extended release docusate sodium 100 mg capsule 1 cap PO DAILY constipation 10/11/22 05/20/23 Unknown History lisinopril 40 mg tablet 1 tab PO DAILY 10/11/22 05/20/23 Unknown History metoprolol succinate 25 mg 1 tab PO DAILY 10/11/22 05/20/23 Unknown History tablet,extended release 24 hr nitroglycerin 0.4 mg sublingual 1 tab sublingual Q5M PRN Angina 10/11/22 05/21/23 Unknown History tablet sumatriptan succinate 25 mg tablet 25 mg PO DAILY PRN Migraine 10/11/22 05/21/23 Unknown History Headache celecoxib 50 mg capsule 50 mg PO DAILY 05/08/23 05/20/23 Unknown History duloxetine 30 mg capsule,delayed 30 mg PO DAILY 05/08/23 05/20/23 Unknown History release multivitamin-ferrous 1 tab PO DAILY 05/08/23 05/20/23 Unknown History fumarate-folic acid 18 mg-400 mcg tablet (Certavite-Antioxidant) polyethylene glycol 3350 17 17 g PO DAILY 05/08/23 05/21/23 Unknown History gram/dose oral powder trazodone 50 mg tablet 50 mg PO BEDTIME 05/08/23 05/20/23 Unknown History white petrolatum 42 % topical 1 appl topical DAILY PRN Dry Skin 05/08/23 05/21/23 Unknown History ointment Physical Exam Vital Signs: Vital Signs: Last Vital Signs Temp 97.0 F 05/22/23 19:45 Pulse 69 05/22/23 19:45 Resp 18 05/22/23 19:45 BP 125/72 05/22/23 19:45 Pulse Ox 98 05/22/23 19:45 O2 Del Method Room Air 05/22/23 19:45 BMI result Body Mass Index 33.0 Const: General: cooperative HEENT: Head: Yes normal to inspection Face and sinus: Yes normal facial exam Mouth: Normal oral and palatal mucosa present Teeth and gingiva: dentition normal Eyes: General: appearance normal, both eyes and all related structures Pupils: Equal, round and reactive pupils present Resp: Effort & Inspection: normal respiratory effort Cardio: Rate: regular rate Rhythm: regular rhythm GI: Palpation (GI): Soft to palpation and nontender : General: Yes no CVA tenderness Back/Spine/Pelvis: Back: no CVA tenderness Skin: General skin exam: no rashes or lesions noted Neuro: General: moves all extremities Cranial nerves: Yes Equal, round and reactive pupils present Extrem: Other: right leg swelling from knee down ,can move leg,no significant praful pedis Psych: Appearance: grossly normal Results Labs 05/22/23 05:54 05/22/23 05:54 Labs: Short CBC 05/22/23 Range/Units 05:54 WBC 8.2 (4.8-10.8) X10*3/uL Hgb 8.5 L (12.0-16.0) g/dl Hct 27.5 L (37.0-47.0) % Plt Count 226 (160-400) X10*3/uL BMP 05/22/23 05:54 Sodium 139 Potassium 4.0 Chloride 107 Carbon Dioxide 26 BUN 11 Creatinine 0.72 Calcium 9.4 Liver Function 05/22/23 Range/Units 05:54 Total Bilirubin 0.3 (0.0-1.0) mg/dL AST 17 (5-31) U/L ALT 25 (0-31) U/L Alkaline Phosphatase 62 (39-117) U/L Albumin 3.3 L (3.5-5.0) g/dL Microbiology Microbiology Results: Microbiology 05/20/23 18:43 Blood - Venous Blood Culture - Preliminary No growth after 48 hours. 05/20/23 18:21 Blood - Venous Blood Culture - Preliminary No growth after 48 hours. Assessment and Plan (1) Recurrent cellulitis of lower extremity: Status: Acute She has still recurrent cellulitis despite PCN prophylaxis. This could be staph also. There doesnt seem to be any knee concerns for infection. Plan Would continue Vancomycin in case there is staph. On discharge possible po Doxycycline 100 mg bid month or so instead of PCN Time Spent With Patient Time: Total time managing care of this patient today ____ minutes.
[2023-05-23] MEDS: 0.9 % Sodium Chloride Flush 3 ML SYRINGE IVFLUSH ×4 (00:08→21:02)
[2023-05-23] MEDS: oxyCODONE HCl Immed Release 5 MG TABLET PO ×4 (01:26→19:32)
[2023-05-23 03:31] VITALS: BP 146/67; PULSE 75; RESP 16; TEMP 36.1; O2SAT 96
[2023-05-23 06:30] LABS: MANUAL DIFF FLAG NO
[2023-05-23 06:36] LABS: Basophils Percent Auto 0.5 % (0-2); Eosinophils Absolute Auto 0.2 X10*3/uL (0.0-0.4); Hematocrit 27.8 % (37.0-47.0); Hemoglobin 8.6 g/dl (12.0-16.0); Imm Gran Abs Auto 0.02 X10*3/uL (0.00-0.03); Imm Gran Pct Auto 0.3 % (0.0-0.4); Lymphocytes Absolute Auto 3.7 X10*3/uL (1.2-4.9); Lymphocytes Percent Auto 48.8 % (20-40); Mean Corpuscular HGB Conc 30.9 g/dl (31.0-35.0); Mean Corpuscular Hemoglobin 24.7 pg (27.0-33.0); Mean Corpuscular Volume 79.9 fL (80.0-98.0); Monocytes Absolute Auto 0.6 X10*3/uL (0.1-1.2); Monocytes Percent Auto 7.9 % (2-11); Neutrophils Percent Auto 40.5 % (45-73); Platelet Count 227 X10*3/uL (160-400); Red Blood Count 3.48 X10*6/uL (4.20-5.50); Red Cell Distribution Width 15.4 % (11.0-16.0); White Blood Count 7.5 X10*3/uL (4.8-10.8)
[2023-05-23 06:49] LABS: Alanine Aminotransferase 18 U/L (0-31); Albumin Level 3.4 g/dL (3.5-5.0); Alkaline Phosphatase 66 U/L (39-117); Anion Gap 10 (12-20); Aspartate Amino Transferase 14 U/L (5-31); Bilirubin Total 0.2 mg/dL (0.0-1.0); Blood Urea Nitrogen 12 mg/dL (9-16); Calcium 9.5 mg/dL (8.4-10.2); Carbon Dioxide 27 mmol/L (22-29); Chloride 107 mmol/L (96-108); Creatinine Clr Calc Pharmacy 84.2; Estimated Glomerular Filt Rate > 60; Glucose Fasting 91 mg/dL (60-99); Potassium 3.9 mmol/L (3.3-5.1); Sodium 140 mmol/L (135-145); Total Protein 6.4 g/dL (6.5-8.0)
[2023-05-23] MEDS: Metoprolol Succinate ER 25 MG TAB.ER.24H PO (07:39)
[2023-05-23] MEDS: lisinopriL 40 MG TABLET PO (07:39)
[2023-05-23] MEDS: DULoxetine HCl 30 MG CAPSULE.DR PO (07:39)
[2023-05-23] MEDS: Clotrimazole 1 % Cream 15 GM TUBE 1 APPL TOPICAL ×2 (07:40→21:05)
[2023-05-23 07:55] VITALS: BP 146/76; PULSE 65; RESP 16; TEMP 36.8; O2SAT 98
--- NOTE | 2023-05-23 09:38 | PM.CNOR ---
History of Present Illness HPI Consult date: 05/23/23 Requesting physician: Virginia Wilson Consult reason: joint pain Chief complaint: leg infection Narrative: 2 years s/p right TKA. Has had stiffness since surgery but pain varies and is mostly posterior right knee. Has been getting recurrent ( 3-4) bouts of lower leg cellulitis since surgery. No regdness or swelling in knee however. [facility] Past Medical History Medical History (Updated 05/22/23 @ 23:28 by Amy Rodriguez MD) Anemia Anemia Arthritis Asthma Back pain with right-sided radiculopathy Breast pain Cervical cancer Chronic kidney disease, stage 3 Depression Dyspnea on exertion Fibromyalgia, primary History of cervical cancer HTN (hypertension) Hypertension Migraines Neurogenic bladder, NOS Recurrent cellulitis of lower extremity Family History Family history: reviewed and not pertinent Surgical History Surgical History (Updated 05/23/23 @ 09:43 by Vladislav Juárez MD) H/O: hysterectomy History of right knee joint replacement Social History Social History Household Members: Family Housing: House Do you presently have visiting nurse or other home services: No Alcohol intake: former Patient Tobacco Use Status: Current everyday Tobacco user Tobacco use type: Cigarette Cigarette Packs Per Day: 0.4 Cigarettes Per Day: 8.0 Years Smoked: 40 e-Cigarette/Vaping Use: Never Used Second Hand Smoke Exposure: No Advance Directives Date on File: 12/05/16 service: No Current occupational status: unemployed Meds Allergies Allergy/AdvReac Type Severity Reaction Status Date / Time buspirone [From BuSpar] Allergy Mild Tongue Verified 05/09/23 00:58 Swelling, dizziness ibuprofen [From Motrin] AdvReac Mild Rash, HTN Verified 05/09/23 00:58 Active Medications: Current Medications Acetaminophen (Acetaminophen 325 Mg Tablet) 650 mg PO Q6H PRN PRN Reason: Pain, Mild (Pain Scale 1-3) Last Admin: 05/22/23 15:35 Dose: 650 mg Clotrimazole (Clotrimazole 1 % Cream 15 Gm Tube) 1 appl TOPICAL BID [facility]; Protocol Last Admin: 05/23/23 07:40 Dose: 1 appl Duloxetine HCl (Duloxetine Hcl 30 Mg Capsule.Dr) 30 mg PO DAILY [facility] Last Admin: 05/23/23 07:39 Dose: 30 mg Enoxaparin Sodium (Enoxaparin Sodium 40 Mg/0.4 Ml Syringe) 40 mg SUBCUT Q24H REPLACED BY [facility] Last Admin: 05/22/23 19:50 Dose: 40 mg Vancomycin HCl 1,500 mg/ (Sodium Chloride) 500 mls @ 333.333 mls/hr IV Q24H REPLACED BY [facility] Last Infusion: 05/22/23 21:50 Dose: Infused Lisinopril (Lisinopril 40 Mg Tablet) 40 mg PO DAILY REPLACED BY [facility]; Protocol Last Admin: 05/23/23 07:39 Dose: 40 mg Melatonin (Melatonin 3 Mg Tablet) 6 mg PO BEDTIME PRN PRN Reason: Insomnia Metoprolol Succinate (Metoprolol Succinate Er 25 Mg Tab.Er.24h) 25 mg PO DAILY REPLACED BY [facility]; Protocol Last Admin: 05/23/23 07:39 Dose: 25 mg Non-Formulary Medication (Celecoxib) 50 mg PO DAILY REPLACED BY [facility] Ondansetron HCl (Ondansetron Hcl 4 Mg/2 Ml Vial) 4 mg IVPUSH Q8H PRN PRN Reason: Nausea and Vomiting Oxycodone HCl (Oxycodone Hcl Immed Release 5 Mg Tablet) 5 mg PO Q4H PRN PRN Reason: Pain, Mild (Pain Scale 1-3) Last Admin: 05/23/23 01:26 Dose: 5 mg Pharmacy Consult (Consult Rx Vancomycin Dosing) 1 each MISCELLANE DAILY PRN PRN Reason: Consult order Sodium Chloride (0.9 % Sodium Chloride Flush 3 Ml Syringe) 3 ml IVFLUSH QSHIFT REPLACED BY [facility] Last Admin: 05/23/23 07:40 Dose: 3 ml Sumatriptan Succinate (Sumatriptan Succinate 25 Mg Tablet) 25 mg PO DAILY PRN PRN Reason: Migraine Headache Trazodone HCl (Trazodone Hcl 50 Mg Tablet) 50 mg PO BEDTIME REPLACED BY [facility] Last Admin: 05/22/23 19:49 Dose: 50 mg Home Medications Medication Instructions Recorded Confirmed Last Taken Type acetaminophen 650 mg 2 tab PO Q8H PRN pain 10/11/22 05/21/23 Unknown History tablet,extended release docusate sodium 100 mg capsule 1 cap PO DAILY constipation 10/11/22 05/20/23 Unknown History lisinopril 40 mg tablet 1 tab PO DAILY 10/11/22 05/20/23 Unknown History metoprolol succinate 25 mg 1 tab PO DAILY 10/11/22 05/20/23 Unknown History tablet,extended release 24 hr nitroglycerin 0.4 mg sublingual 1 tab sublingual Q5M PRN Angina 10/11/22 05/21/23 Unknown History tablet sumatriptan succinate 25 mg tablet 25 mg PO DAILY PRN Migraine 10/11/22 05/21/23 Unknown History Headache celecoxib 50 mg capsule 50 mg PO DAILY 05/08/23 05/20/23 Unknown History duloxetine 30 mg capsule,delayed 30 mg PO DAILY 05/08/23 05/20/23 Unknown History release multivitamin-ferrous 1 tab PO DAILY 05/08/23 05/20/23 Unknown History fumarate-folic acid 18 mg-400 mcg tablet (Certavite-Antioxidant) polyethylene glycol 3350 17 17 g PO DAILY 05/08/23 05/21/23 Unknown History gram/dose oral powder trazodone 50 mg tablet 50 mg PO BEDTIME 05/08/23 05/20/23 Unknown History white petrolatum 42 % topical 1 appl topical DAILY PRN Dry Skin 05/08/23 05/21/23 Unknown History ointment Physical Exam Vital Signs: Vital Signs: Last Vital Signs Temp 98.3 F 05/23/23 07:55 Pulse 65 05/23/23 07:55 Resp 16 05/23/23 07:55 BP 146/76 H 05/23/23 07:55 Pulse Ox 98 05/23/23 07:55 O2 Del Method Room Air 05/23/23 07:55 BMI result Body Mass Index 33.0 Extrem: Other: Mild-moderate cellulitis right tibia. No fluctuance. Right knee inc c/d/i. No effusion. No knee warmth. ROM 0-90 deg Results Labs 05/23/23 05:26 05/23/23 05:26 Labs: Abnormal lab results 05/23/23 05/23/23 Range/Units 05:26 05:26 RBC 3.48 L (4.20-5.50) X10*6/uL Hgb 8.6 L (12.0-16.0) g/dl Hct 27.8 L (37.0-47.0) % MCV 79.9 L (80.0-98.0) fL MCH 24.7 L (27.0-33.0) pg MCHC 30.9 L (31.0-35.0) g/dl Neut % (Auto) 40.5 L (45-73) % Lymph % (Auto) 48.8 H (20-40) % Anion Gap 10 L (12-20) Total Protein 6.4 L (6.5-8.0) g/dL Albumin 3.4 L (3.5-5.0) g/dL H & H 05/20/23 05/21/23 05/22/23 Range/Units 18:21 05:40 05:54 Hgb 9.9 L 8.6 L 8.5 L (12.0-16.0) g/dl Hct 31.7 L 27.9 L 27.5 L (37.0-47.0) % 05/23/23 Range/Units 05:26 Hgb 8.6 L (12.0-16.0) g/dl Hct 27.8 L (37.0-47.0) % All other labs normal. Assessment and Plan (1) Recurrent cellulitis of lower extremity: Status: Acute Continue medical management. No orthopaedic intervention warranted. (2) History of right knee joint replacement: Status: Acute Stiffness s/p P right TKA at [facility]. No evidence of knee infection. May follow up with me for knee if needed but no orthopaedic intervention warranted. Time Spent With Patient Time: Total time managing care of this patient today ____ minutes. Procedures Date of Service Date of Service: 05/23/23
[2023-05-23] MEDS: Acetaminophen 325 MG TABLET 650 MG PO (11:23)
--- NOTE | 2023-05-23 13:13 | P.PNIM_ITS ---
Subjective Subjective Date of Service: 05/23/23 Interval History: leg pain/cellulitis Review of Systems has right? leg pain /erythema similar to yesterday no fevers Physical Exam Vital Signs: Vital Signs: Last Vital Signs Temp 98.3 F 05/23/23 07:55 Pulse 65 05/23/23 07:55 Resp 16 05/23/23 07:55 BP 146/76 H 05/23/23 07:55 Pulse Ox 98 05/23/23 07:55 O2 Del Method Room Air 05/23/23 07:55 BMI result Body Mass Index 33.0 Appearance: Alert.? Oriented X3.? cvs: [id number], [id number] . res: clear to auscultation ,no rhonchii or wheezing abd: no rebound or guarding ,nt, bs present. ext pulses present , no cyanosis. right leg -pain/warm,?erythema neuro: axo3 , nonfocal. Objective Data Active Medications Acetaminophen (Acetaminophen 325 Mg Tablet) 650 mg PO Q6H PRN PRN Reason: Pain, Mild (Pain Scale 1-3) Last Admin: 05/23/23 11:23 Dose: 650 mg Documented By: LG Clotrimazole (Clotrimazole 1 % Cream 15 Gm Tube) 1 appl TOPICAL BID [facility]; Protocol Last Admin: 05/23/23 07:40 Dose: 1 appl Documented By: YEVGENIY Duloxetine HCl (Duloxetine Hcl 30 Mg Capsule.Dr) 30 mg PO DAILY [facility] Last Admin: 05/23/23 07:39 Dose: 30 mg Documented By: YEVGENIY Enoxaparin Sodium (Enoxaparin Sodium 40 Mg/0.4 Ml Syringe) 40 mg SUBCUT Q24H [facility] Last Admin: 05/22/23 19:50 Dose: 40 mg Documented By: LAUREN Vancomycin HCl 1,500 mg/ (Sodium Chloride) 500 mls @ 333.333 mls/hr IV Q24H [facility] Last Infusion: 05/22/23 21:50 Dose: 0 mls/hr Documented By: LAUREN Lisinopril (Lisinopril 40 Mg Tablet) 40 mg PO DAILY [facility]; Protocol Last Admin: 05/23/23 07:39 Dose: 40 mg Documented By: YEVGENIY Melatonin (Melatonin 3 Mg Tablet) 6 mg PO BEDTIME PRN PRN Reason: Insomnia Metoprolol Succinate (Metoprolol Succinate Er 25 Mg Tab.Er.24h) 25 mg PO DAILY [facility]; Protocol Last Admin: 05/23/23 07:39 Dose: 25 mg Documented By: YEVGENIY Non-Formulary Medication (Celecoxib) 50 mg PO DAILY [facility] Ondansetron HCl (Ondansetron Hcl 4 Mg/2 Ml Vial) 4 mg IVPUSH Q8H PRN PRN Reason: Nausea and Vomiting Oxycodone HCl (Oxycodone Hcl Immed Release 5 Mg Tablet) 5 mg PO Q4H PRN PRN Reason: Pain, Mild (Pain Scale 1-3) Last Admin: 05/23/23 11:23 Dose: 5 mg Documented By: LG Pharmacy Consult (Consult Rx Vancomycin Dosing) 1 each MISCELLANE DAILY PRN PRN Reason: Consult order Sodium Chloride (0.9 % Sodium Chloride Flush 3 Ml Syringe) 3 ml IVFLUSH QSHIFT [facility] Last Admin: 05/23/23 07:40 Dose: 3 ml Documented By: YEVGENIY Sumatriptan Succinate (Sumatriptan Succinate 25 Mg Tablet) 25 mg PO DAILY PRN PRN Reason: Migraine Headache Trazodone HCl (Trazodone Hcl 50 Mg Tablet) 50 mg PO BEDTIME [facility] Last Admin: 05/22/23 19:49 Dose: 50 mg Documented By: LAUREN Labs 05/23/23 05:26 05/23/23 05:26 Labs: Laboratory Results - last 24 hr 05/23/23 05/23/23 05:26 05:26 MCV 79.9 L MCH 24.7 L MCHC 30.9 L RDW 15.4 Plt Count 227 MPV 11.0 Immature Gran % (Auto) 0.3 Neut % (Auto) 40.5 L Lymph % (Auto) 48.8 H Brown % (Auto) 7.9 Eos % (Auto) 2.0 Baso % (Auto) 0.5 Lymph # (Auto) 3.7 Brown # (Auto) 0.6 Eos # (Auto) 0.2 Baso # (Auto) 0.0 Abs Immat Gran (auto) 0.02 Absolute Neuts (auto) 3.0 Absolute Nucleated RBC 0.000 Nucleated RBC % (auto) 0.0 Anion Gap 10 L Estim Creat Clear Calc 84.2 Estimated GFR > 60 Fasting Glucose 91 Calcium 9.5 Total Bilirubin 0.2 AST 14 ALT 18 Alkaline Phosphatase 66 Total Protein 6.4 L Albumin 3.4 L Microbiology Microbiology Results: Microbiology 05/20/23 18:43 Blood Culture - Preliminary Blood - Venous No growth after 48 hours. 05/20/23 18:21 Blood Culture - Preliminary Blood - Venous No growth after 48 hours. Assessment and Plan (1) Cellulitis: Status: Inactive (2) Hypertension: Status: Acute (3) Neurogenic bladder, NOS: Status: Acute (4) Chronic kidney disease, stage 3: Status: Acute Plan ?62-year-old female with pertinent history of migraine, fibromyalgia, essential hypertension, mood disorder, asthma not on home oxygen who presents to the emergency department for evaluation of right leg swelling, redness and warmth in the backdrop of chronic/recurrent cellulitis. She has failed outpatient therapies 1.Right lower extremity cellulitis so far little improvement dvt studies right leg neg ct right leg-?Mild subcutaneous stranding/inflammation in the medial proximal right thigh. continue vancomycin (started on 05/20). also thought to be some degree tinea noted in webspace of foot; chlotrimazole cream b.i.d. vanco trough management as per pharmacy ID eval-continue vanco ortho eval -May follow up with ortho outpatient for knee if needed but no orthopaedic intervention warranted. 2.Essential hypertension -acceptable control on current therapies -adjust as indicated 3. Neurogenic bladder -patient to self catheterization as per home regimen 4. CKD 3 -at baseline -follow renals/divalents 5. Asthma.? No exacerbation during admission.? Continue home inhalers. DVT prophylaxis:? Lovenox Full code ongoing hospitalization for IV antibiotics to treat cellulitis that has failed outpatient therapies Time Spent With Patient Time: Total time managing care of this patient today ____ minutes. Quality Stroke Does the patient have a stroke diagnosis?: No VTE Prior VTE?: No VTE Risk Level:: Medical - moderate - high VTE Device Contraindication: Treatment Not Indicated VTE Drug Contraindication: N/A - Med Ordered
--- NOTE | 2023-05-23 14:22 | MHC.CM.PN ---
Per MD rounds no discharge today. DP Home with resumption of [employer] services.
[2023-05-23 16:00] VITALS: BP 140/87; PULSE 60; RESP 20; TEMP 36.3; O2SAT 97
[2023-05-23 18:36] LABS: Vancomycin Trough 9.4 mcg/mL (10.0-20.0)
[2023-05-23 20:00] VITALS: BP 162/73; PULSE 70; RESP 20; TEMP 36.2; O2SAT 98
[2023-05-23] MEDS: vancomycin HCL 1,000 MG in 0.9 % Sodium Chloride 250 ML 270 MG IV (20:00)
[2023-05-23] MEDS: SUMAtriptan succinate 25 MG TABLET PO (21:01)
[2023-05-23] MEDS: traZODone HCL 50 MG TABLET PO (21:02)
[2023-05-23] MEDS: Enoxaparin Sodium 40 MG/0.4 ML SYRINGE SUBCUT (21:02)
[2023-05-24 03:26] VITALS: BP 135/80; PULSE 82; RESP 16; TEMP 36.1; O2SAT 96
[2023-05-24] MEDS: oxyCODONE HCl Immed Release 5 MG TABLET PO (04:25)
[2023-05-24] MEDS: Acetaminophen 325 MG TABLET 650 MG PO (05:30)
[2023-05-24 06:55] LABS: Basophils Percent Auto 0.3 % (0-2); Eosinophils Absolute Auto 0.2 X10*3/uL (0.0-0.4); Eosinophils Percent Auto 2.5 % (0-4); Hematocrit 28.6 % (37.0-47.0); Hemoglobin 8.9 g/dl (12.0-16.0); Imm Gran Abs Auto 0.03 X10*3/uL (0.00-0.03); Imm Gran Pct Auto 0.4 % (0.0-0.4); Lymphocytes Absolute Auto 3.9 X10*3/uL (1.2-4.9); Lymphocytes Percent Auto 53.5 % (20-40); MANUAL DIFF FLAG NO; Mean Corpuscular HGB Conc 31.1 g/dl (31.0-35.0); Mean Corpuscular Hemoglobin 24.8 pg (27.0-33.0); Mean Corpuscular Volume 79.7 fL (80.0-98.0); Monocytes Absolute Auto 0.5 X10*3/uL (0.1-1.2); Monocytes Percent Auto 7.5 % (2-11); Neutrophils Absolute Auto 2.6 x10*3/uL (2.0-8.3); Neutrophils Percent Auto 35.8 % (45-73); Platelet Count 259 X10*3/uL (160-400); Red Blood Count 3.59 X10*6/uL (4.20-5.50); White Blood Count 7.2 X10*3/uL (4.8-10.8)
[2023-05-24 07:26] LABS: Vancomycin Random 13.5 mcg/mL (15-20)
[2023-05-24 07:27] LABS: Alanine Aminotransferase 18 U/L (0-31); Albumin Level 3.5 g/dL (3.5-5.0); Alkaline Phosphatase 73 U/L (39-117); Anion Gap 12 (12-20); Aspartate Amino Transferase 15 U/L (5-31); Bilirubin Total 0.2 mg/dL (0.0-1.0); Blood Urea Nitrogen 13 mg/dL (9-16); Calcium 9.6 mg/dL (8.4-10.2); Carbon Dioxide 25 mmol/L (22-29); Chloride 106 mmol/L (96-108); Creatinine Clr Calc Pharmacy 86.4; Estimated Glomerular Filt Rate > 60; Glucose Fasting 93 mg/dL (60-99); Potassium 4.2 mmol/L (3.3-5.1); Sodium 139 mmol/L (135-145); Total Protein 6.7 g/dL (6.5-8.0)
[2023-05-24 07:49] VITALS: BP 150/77; PULSE 63; RESP 16; TEMP 36.3; O2SAT 98
[2023-05-24] MEDS: 0.9 % Sodium Chloride Flush 3 ML SYRINGE IVFLUSH (08:00)
[2023-05-24] MEDS: vancomycin HCL 1,000 MG in 0.9 % Sodium Chloride 250 ML 270 MG IV (08:00)
[2023-05-24] MEDS: lisinopriL 40 MG TABLET PO (08:00)
[2023-05-24] MEDS: DULoxetine HCl 30 MG CAPSULE.DR PO (08:00)
[2023-05-24] MEDS: Metoprolol Succinate ER 25 MG TAB.ER.24H PO (08:00)
[2023-05-24] MEDS: Clotrimazole 1 % Cream 15 GM TUBE 1 APPL TOPICAL (08:01)
--- NOTE | 2023-05-24 10:40 | PM.DS ---
DS: Providers Provider Date of Service: 05/24/23 Date of admission: 05/20/23 20:22 Date of discharge: 05/24/23 Primary care physician: Lilly Cowart MD Consults: 05/20/23 20:41 Consult to Infectious Diseases [place] [facility] [place] Reason for consultation: cellulitis 05/22/23 16:00 Consult to Orthopedics [place]ine [place]ing [place] [facility] [place] [facility] Reason for consultation: reccurent right leg swelling /? knee surgery related Has provider been notified: No Attending physician on discharge: Virginia Wilson Discharging clinician: Virginia Wilson DS: Diagnosis Discharge Diagnosis (1) Cellulitis: Status: Inactive (2) Hypertension: Status: Acute (3) Neurogenic bladder, NOS: Status: Acute (4) Chronic kidney disease, stage 3: Status: Acute DS: Summary Hospital Course Hospital Course: HPI:62-year-old female with pertinent history of migraine, fibromyalgia, essential hypertension, mood disorder, asthma not on home oxygen who presents to the emergency department for evaluation of right leg swelling, redness and warmth in the backdrop of chronic/recurrent cellulitis. She has failed outpatient therapies hospital course: Patient admitted for right lower extremity cellulitis which seems to be recurrent: Workup including DVT studies of leg negative, CT scan lead showed mild subcutaneous inflammation: Patient was started on IV antibiotics and seen by infectious disease doctor and Orthopedics: Patient cellulitis seems to be improved significantly with IV antibiotics, Infectious Disease recommended to discharge on p.o. doxycycline 100 mg twice a day, orthopedics saw the patient because patient has history of right knee surgery-currently no acute intervention recommended, patient was advised to follow up outpatient with Ortho. Plan: Complete the course of doxycycline 100 mg by mouth twice a day for 1 month unitl 06/22/23. Do not take penicillin p.o. until she is on doxycycline-subsequently started back penicillin on 06/23/23 Follow-up with orthopedics outpatient Assessment plan coordination time spent 50 minute. Time Spent with Patient Time attestation: Total time managing care of this patient today ____ minutes. Discharge coordination time: Greater than 30 minutes Quality: Safe Use of Opioids Does Pt have an Active Cancer Diagnosis on the Problem List?: No Quality: Stroke Does the patient have a stroke diagnosis?: No Physical Exam Vital Signs: Vital Signs: Last Vital Signs Temp 97.3 F 05/24/23 07:49 Pulse 63 05/24/23 07:49 Resp 16 05/24/23 07:49 BP 150/77 H 05/24/23 07:49 Pulse Ox 98 05/24/23 07:49 O2 Del Method Room Air 05/24/23 07:49 BMI result Body Mass Index 33.0 Appearance: Alert.? Oriented X3.? cvs: [id number], [id number] . res: clear to auscultation ,no rhonchii or wheezing abd: no rebound or guarding ,nt, bs present. ext pulses present , no cyanosis. right leg -erythema improved ,has mild pain ,rom intact. neuro: axo3 , nonfocal. DS: Data Data Completed and Pending Labs on day of discharge: Laboratory Results - last 24 hr 05/23/23 05/24/23 17:58 05:49 WBC 7.2 RBC 3.59 L Hgb 8.9 L Hct 28.6 L MCV 79.7 L MCH 24.8 L MCHC 31.1 RDW 15.0 Plt Count 259 MPV 11.0 Immature Gran % (Auto) 0.4 Neut % (Auto) 35.8 L Lymph % (Auto) 53.5 H [place] % (Auto) 7.5 Eos % (Auto) 2.5 Baso % (Auto) 0.3 Lymph # (Auto) 3.9 [place] # (Auto) 0.5 Eos # (Auto) 0.2 Baso # (Auto) 0.0 Abs Immat Gran (auto) 0.03 Absolute Neuts (auto) 2.6 Absolute Nucleated RBC 0.000 Nucleated RBC % (auto) 0.0 Sodium 139 Potassium 4.2 Chloride 106 Carbon Dioxide 25 Anion Gap 12 BUN 13 Creatinine 0.74 Estim Creat Clear Calc 86.4 Estimated GFR > 60 Fasting Glucose 93 Calcium 9.6 Total Bilirubin 0.2 AST 15 ALT 18 Alkaline Phosphatase 73 Total Protein 6.7 Albumin 3.5 Vancomycin Trough 9.4 L Random Vancomycin 13.5 L Preliminary micro results at discharge 05/20/23 18:43 Blood Culture - Preliminary Blood - Venous No growth after 48 hours. 05/20/23 18:21 Blood Culture - Preliminary Blood - Venous No growth after 48 hours. Imaging Chest x-ray: Radiologist's impression: ITS Impressions Venous Duplex 05/20/23 19:20 IMPRESSION: No deep vein thrombosis demonstrated in the right lower extremity. CT/CT femur RT w IV con IMPRESSION: No specific findings of necrotizing fasciitis. Mild subcutaneous stranding/inflammation in the medial proximal right thigh. Discharge Plan Discharge Anticipated Discharge Date/Time: 05/24/23 10:25 Patient Disposition: Home, Self-Care Discharge Diagnosis: leg cellulitis Referrals: Vladislav Juárez MD [Physician] - 1 Week (follow up outpatient) Lilly Cowart MD [Primary Care Provider] - 06/08/23 1:00 pm (You have a follow up appointment scheduled. if you need to reschedule call office.) Discharge Medications: New oxycodone 5 mg Tablet 5 mg PO Q4H PRN (Reason: Pain, Mild (Pain Scale 1-3)) Qty: 10 0RF Rx Instructions: Partial Fill upon patient request. clotrimazole 1 % Cream 1 appl topical BID Qty: 1 0RF Protocol: Apply to: Apply to: web spaces right foot doxycycline hyclate 100 mg capsule 100 mg PO BID Qty: 60 0RF Continued sumatriptan succinate 25 mg tablet 25 mg PO DAILY PRN (Reason: Migraine Headache) docusate sodium 100 mg capsule 1 cap PO DAILY metoprolol succinate 25 mg tablet extended release 24 hr 1 tab PO DAILY lisinopril 40 mg tablet 1 tab PO DAILY acetaminophen 650 mg tablet extended release 2 tab PO Q8H PRN (Reason: pain) nitroglycerin 0.4 mg tablet, sublingual 1 tab sublingual Q5M PRN (Reason: Angina) ondansetron 4 mg tablet,disintegrating 4 mg PO Q8H PRN (Reason: nausea and vomiting) Qty: 10 0RF trazodone 50 mg tablet 50 mg PO BEDTIME polyethylene glycol 3350 17 gram/dose powder 17 g PO DAILY Certavite-Antioxidant 18-400 mg-mcg tablet 1 tab PO DAILY white petrolatum 42 % ointment 1 appl topical DAILY PRN (Reason: Dry Skin) duloxetine 30 mg capsule,delayed release(DR/EC) 30 mg PO DAILY fluconazole [Diflucan] 150 mg tablet 150 mg PO QWEEK Qty: 2 0RF terbinafine HCl 1 % cream 1 appl topical BID 14 Days Qty: 30 0RF Rx Instructions: Prescribed for a #14 days /. Start date was 04/20/23 albuterol sulfate [ProAir HFA] 90 mcg/actuation HFA aerosol inhaler 2 puff inhalation Q4-6H PRN (Reason: shortness of breath or wheezing) 30 Days Qty: 8.5 3RF Held celecoxib 50 mg capsule 50 mg PO DAILY Hold Instructions: Resume on 05/29/23. penicillin V potassium 250 mg tablet 250 mg PO BID 30 Days Qty: 60 1RF Hold Instructions: Resume on 06/22/23. Discontinued cephalexin 500 mg tablet 500 mg PO QID 10 Days Qty: 40 0RF Discharge Orders: Discharge Order (Routine); Ordered 05/24/23 Ordered By: Virginia Wilson Diet: Advance to usual diet Activity on Discharge: As tolerated Stand Alone Forms: Patient Portal Discharge page Care Plan Goals: Patient admitted for right lower extremity cellulitis which seems to be recurrent: Workup including DVT studies of leg negative, CT scan lead showed mild subcutaneous inflammation: Patient was started on IV antibiotics and seen by infectious disease doctor and Orthopedics: Patient cellulitis seems to be improved significantly with IV antibiotics, Infectious Disease recommended to discharge on p.o. doxycycline 100 mg twice a day, orthopedics saw the patient because patient has history of right knee surgery-currently no acute intervention recommended, patient was advised to follow up outpatient with Orthopedics. Health Concerns: As above. Plan of Treatment: Complete the course of doxycycline 100 mg by mouth twice a day for 1 month unitl 06/22/23. Do not take penicillin p.o. until she is on doxycycline-subsequently started back penicillin on 06/23/23 Follow-up with orthopedics outpatient Assessment: As above.
[2023-05-24] MEDS: Doxycycline Monohydrate 100 MG CAPSULE PO (10:58)
--- NOTE | 2023-05-24 12:57 | MHC.CM.PN ---
Patient is discharged to home today. [employer] services will resume. Patient has arranged for transportation home.
== END 2023-05-24 11:30 | disposition home or self-care (01) | DRG 720 ==
LOC: HO.ED 18:42 → HO.EDOVER 20:34 → HO.S3 20:50
PROVIDERS: Hospitalist; Physician Assistant; Admitting Provider Student in an Organized Health Care Education/Training Program; Emergency Provider Internal Medicine; PCP General Practice; Visit Provider Internal Medicine
DX: A41.9 Sepsis, unspecified organism (principal); D63.1 Anemia in chronic kidney disease; L03.115 Cellulitis of right lower limb; J45.20 Mild intermittent asthma, uncomplicated; F17.210 Nicotine dependence, cigarettes, uncomplicated; B35.3 Tinea pedis; N31.9 Neuromuscular dysfunction of bladder, unspecified; Z71.6 Tobacco abuse counseling; Z79.899 Other long term (current) drug therapy
CPT/HCPCS: 36415; 80048; 80053; 80202; 81001; 83605; 83690; 85025; 85652; 86140; 87040; 93971; 99285; J0696; J1200; J1650; J1885; J2270; J2405; J3370; J3371

== ENCOUNTER → 2023-05-20 20:22 | Outpatient (BNV) | payer MEDICAID, SELFPAY | PROVIDERS: Admitting Provider Student in an Organized Health Care Education/Training Program; Emergency Provider Internal Medicine; PCP General Practice; Visit Provider Student in an Organized Health Care Education/Training Program | DX: I10 Essential (primary) hypertension (principal); N18.30 Chronic kidney disease, stage 3 unspecified; N31.9 Neuromuscular dysfunction of bladder, unspecified; L03.90 Cellulitis, unspecified | CPT/HCPCS: 99222; 99232; 99233; 99239 ==

== ENCOUNTER → 2023-05-20 20:22 | Outpatient (BNV) | payer MEDICAID, SELFPAY | PROVIDERS: Admitting Provider Student in an Organized Health Care Education/Training Program; Emergency Provider Internal Medicine; PCP General Practice; Visit Provider Orthopaedic Surgery | DX: L03.119 Cellulitis of unspecified part of limb (principal); Z96.651 Presence of right artificial knee joint | CPT/HCPCS: 99231 ==

== ENCOUNTER → 2023-05-20 20:22 | Outpatient (BNV) | payer MEDICAID, SELFPAY | PROVIDERS: Admitting Provider Student in an Organized Health Care Education/Training Program; Emergency Provider Internal Medicine; PCP General Practice; Visit Provider Internal Medicine | DX: L03.119 Cellulitis of unspecified part of limb (principal) | CPT/HCPCS: 99222 ==

== ENCOUNTER 2023-06-21 12:24 | Outpatient (AMB) | payer MEDICAID, SELFPAY ==
--- NOTE | 2023-06-21 12:52 | MHC.OFFVIS ---
Intake Intake Visit Reasons: OV - Right knee pain Intake Note: Nadege is a 62 year old woman who presents for a follow-up of her right knee pain. She has a hx of right TKA at [facility], in 2020, and a hx of recurrent cellulitis in her right leg. She was seen in the ED on 05/23/23, admitted for IV abx, and discharged on P.O Doxycycline. Allergies buspirone [From BuSpar] Allergy (Mild, Verified 06/21/23 12:53) Tongue Swelling, dizziness ibuprofen [From Motrin] Adverse Reaction (Mild, Verified 06/21/23 12:53) Rash, HTN Medication List - Last Reconciled 06/21/23 by Trupti Waggoner RN acetaminophen ER 2 tabs PO Q8H PRN albuterol sulfate 90 mcg/actuation (ProAir HFA) 2 puffs inhalation Q4-6H PRN 30 days celecoxib 50 mg PO DAILY clotrimazole 1% 1 appl See Protocol topical BID docusate sodium 1 cap PO DAILY doxycycline hyclate 100 mg PO BID duloxetine 30 mg PO DAILY fluconazole (Diflucan) 150 mg PO QWEEK lisinopril 1 tab PO DAILY metoprolol succinate ER 1 tab PO DAILY yyqulfvezalx-kwme-asimd acid 18-400 mg-mcg (Certavite-Antioxidant) 1 tab PO DAILY nitroglycerin 1 tab sublingual Q5M PRN ondansetron 4 mg PO Q8H PRN oxycodone 5 mg PO Q4H PRN penicillin V potassium 250 mg PO BID 30 days polyethylene glycol 3350 17 grams PO DAILY sumatriptan succinate 25 mg PO DAILY PRN terbinafine HCl 1% 1 appl topical BID 14 days trazodone 50 mg PO BEDTIME white petrolatum 42% 1 appl topical DAILY PRN HPI OV - Right knee pain HPI Details Nadege is a 62 year old woman who presents for a follow-up of her right knee pain. [place] patient. She has a hx of right TKA at [facility], in 2020, and a hx of recurrent cellulitis in her right leg. She was seen in the ED on 05/23/23, admitted for IV abx, and discharged on P.O Doxycycline. She complains of pain and recurrent infection to her right leg. Her pain is worse with using stairs, especially downstairs. She says every time she finished her Abx the symptoms of infection returns and she ends up in the ED She says her knee has been aspirated in the past at [facility] and there was no evidence of knee infection. She is worried about going outside due to inclimate weather, as she is afraid of slipping and falling. She says she doesn't see her PCP as every time she has an appointment its raining . She has Fibromyalgia and stage-3 CKD. [facility] Medical History (Updated 06/21/23 @ 13:15 by Aleks Cassidy) Neurogenic bladder, NOS Chronic kidney disease, stage 3 Hypertension Anemia Depression Cervical cancer Breast pain Back pain with right-sided radiculopathy Asthma Recurrent cellulitis of lower extremity History of cervical cancer Dyspnea on exertion HTN (hypertension) Anemia Migraines Arthritis Fibromyalgia, primary Surgical History (Updated 06/11/23 @ 12:38 by Aleks Cassidy) History of right knee joint replacement H/O: hysterectomy Social History Household Members: Family Housing: House Do you presently have visiting nurse or other home services: No Alcohol intake: former Patient Tobacco Use Status: Current everyday Tobacco user Tobacco use type: Cigarette Cigarette Packs Per Day: 0.4 Cigarettes Per Day: 8.0 Years Smoked: 40 e-Cigarette/Vaping Use: Never Used Second Hand Smoke Exposure: No Advance Directives Date on File: 12/05/16 service: No Current occupational status: unemployed Review of Systems Const All systems reviewed & are unremarkable except as noted in HPI and below Physical Exam Const General: no acute distress, alert and awake Orientation/consciousness: patient oriented x3 HEENT Head: Yes normocephalic and Yes atraumatic Eyes EOM: EOMs intact bilaterally Resp Effort & Inspection: normal respiratory effort and able to speak in complete sentences Cardio Jugular venous distension: no JVD Skin General skin exam: turgor normal Rashes: no rashes Neuro General: patient oriented x3 Extrem Other: Right Knee: Inc c/d/i There is cellulitis with erythema and mild swelling distal to the knee. Left knee with medial and lateral joint line ttp Psych Appearance: grossly normal Affect: normal affect Attitude: cooperative Office Procedures Joint Injection/Drain Joint Injection/Drain Details: Injected 1 mL of Decadron and 3 mL 1% lidocaine and 3 mL of 0.25% Marcaine. Site was prepped using aseptic technique. Patient tolerated the procedure well. Primary Site: left knee Approach Used: anterolateral Coding 03648 - Large joint Procedure code (CPT) selection complete Results Reviewed Results Reviewed: 06/21/23 13:16 BUPivacaine MPF 0.25 % [Sensorcaine-MPF 0.25% 10 ML] 10 ml .ROUTE .STK-MED ONE Lidocaine HCl 2 % MPF [Xylocaine 2 % MPF] 5 ml .ROUTE .STK-MED ONE dexAMETHasone sod phosphate [Decadron] 4 mg .ROUTE .STK-MED ONE I personally reviewed relevant radiographs. Right total knee arthroplasty in expected post operative position with no hardware complications or evidence of loosening Severe tricompartmental degenerative changes of the left knee Assessment & Plan Assessment & Plan (1) Recurrent cellulitis of lower extremity: Comment: this may be due to recurrent lymphangitis and/or tinea pedis This is likely recurrent due to venous stasis changes Code(s): L03.119 - Cellulitis of unspecified part of limb Plan: This is a 62 year old woman with recurrent chronic cellulitis of the RLE, with a hx of right TKA at [facility] in 2020. She has intermittant erythema and warmth in her leg, which she manages repeatedly with Abx. She is currently on PO Doxycycline, which she began after a stay in the hospital on 05/23/23. She has pain with daily activities, worse with using stairs. I discussed her diagnosis and treatment options. I recommend she follow with her PCP or infectious disease for this condition. We can aspirate her knee when she has no evidence of cellulitis but it does NOT appear to be involved. It also sounds like she may have had a prior aspiration done at [facility] which she states was negative. (2) Osteoarthritis of left knee: Code(s): M17.12 - Unilateral primary osteoarthritis, left knee Plan: Pain with activity. Injected today, which she tolerated well. (3) History of right knee joint replacement: Comment: ~2020 at [facility] Code(s): Z96.651 - Presence of right artificial knee joint (4) Chronic kidney disease, stage 3: Code(s): N18.30 - Chronic kidney disease, stage 3 unspecified Plan Scribed for Vladislav Juárez MD by Aleks Cassidy, medical scientific liaison, on 06/21/23 at 1:10 PM, EST. Coding Level of Care Code Est Pt Level 4 (01512) Diagnoses Recurrent cellulitis of lower extremity L03.119 Osteoarthritis of left knee M17.12 History of right knee joint replacement Z96.651 Chronic kidney disease, stage 3 N18.30 CPT Codes Coding - 15845 Large joint: 63083 - Large joint ([id number])
== END 2023-06-21 13:32 | disposition home or self-care (01) ==
PROVIDERS: PCP General Practice; Visit Provider Orthopaedic Surgery
DX: M17.12 Unilateral primary osteoarthritis, left knee (principal); L03.119 Cellulitis of unspecified part of limb; Z96.651 Presence of right artificial knee joint; N18.30 Chronic kidney disease, stage 3 unspecified
CPT/HCPCS: 20610; 99213

== ENCOUNTER → 2023-06-21 12:24 | Outpatient (BNVA) | payer MEDICAID, SELFPAY | PROVIDERS: PCP General Practice; Visit Provider Orthopaedic Surgery | DX: M17.12 Unilateral primary osteoarthritis, left knee (principal); L03.115 Cellulitis of right lower limb; N18.30 Chronic kidney disease, stage 3 unspecified; Z96.651 Presence of right artificial knee joint | CPT/HCPCS: 20610; 99212; J1100 ==

== ENCOUNTER 2023-10-02 19:18 | Emergency (ER) | payer MEDICAID, SELFPAY ==
[2023-10-02 19:45] VITALS: BP 165/91; PULSE 75; PULSE 84; RESP 20; TEMP 37.2; O2SAT 100; O2SAT 95; BMI 31.9
--- NOTE | 2023-10-02 19:47 | ED_ITS ---
HPI - General Adult General Chief complaint: Abdominal Pain Stated complaint: LOWER L SIDED BACK PAIN Time Seen by Provider: 10/02/23 19:23 Related Data Home Medications Medication Instructions Recorded Confirmed acetaminophen 650 mg 2 tab PO Q8H PRN pain 10/11/22 06/21/23 tablet,extended release docusate sodium 100 mg capsule 1 cap PO DAILY constipation 10/11/22 06/21/23 lisinopril 40 mg tablet 1 tab PO DAILY 10/11/22 06/21/23 metoprolol succinate 25 mg 1 tab PO DAILY 10/11/22 06/21/23 tablet,extended release 24 hr nitroglycerin 0.4 mg sublingual 1 tab sublingual Q5M PRN Angina 10/11/22 06/21/23 tablet sumatriptan succinate 25 mg tablet 25 mg PO DAILY PRN Migraine 10/11/22 06/21/23 Headache celecoxib 50 mg capsule 50 mg PO DAILY 05/08/23 06/21/23 duloxetine 30 mg capsule,delayed 30 mg PO DAILY 05/08/23 06/21/23 release multivitamin-ferrous 1 tab PO DAILY 05/08/23 06/21/23 fumarate-folic acid 18 mg-400 mcg tablet (Certavite-Antioxidant) polyethylene glycol 3350 17 17 g PO DAILY 05/08/23 06/21/23 gram/dose oral powder trazodone 50 mg tablet 50 mg PO BEDTIME 05/08/23 06/21/23 white petrolatum 42 % topical 1 appl topical DAILY PRN Dry Skin 05/08/23 06/21/23 ointment Previous Rx's Medication Instructions Recorded albuterol sulfate 90 mcg/actuation 2 puff inhalation Q4-6H PRN 08/03/20 aerosol inhaler (ProAir HFA) shortness of breath or wheezing 30 days #8.5 grams ondansetron 4 mg disintegrating 4 mg PO Q8H PRN nausea and 10/13/22 tablet vomiting #10 tabs fluconazole 150 mg tablet 150 mg PO QWEEK #2 tabs 05/10/23 (Diflucan) penicillin V potassium 250 mg 250 mg PO BID 30 days #60 tabs 05/10/23 tablet terbinafine HCl 1 % topical cream 1 appl topical BID 14 days #30 05/10/23 grams clotrimazole 1 % topical cream 1 appl topical BID #1 g 05/24/23 oxycodone 5 mg tablet 5 mg PO Q4H PRN Pain, Mild (Pain 05/24/23 Scale 1-3) #10 tabs doxycycline hyclate 100 mg capsule 100 mg PO BID #60 caps 06/26/23 Allergies Allergy/AdvReac Type Severity Reaction Status Date / Time buspirone [From BuSpar] Allergy Mild Tongue Verified 10/02/23 19:45 Swelling, dizziness ibuprofen [From Motrin] AdvReac Mild Rash, HTN Verified 10/02/23 19:45 PMFSH Past Medical History Onset Date is defined in the Problem List Problems that require an onset date and time if occurred within 24 hrs of arrival to the ED Aortic Dissection and Rupture; Neurologic impairment; Cardiopulmonary Arrest; Endotracheal Intubation; Insertion or Replacement of Mechanical Circulatory Assist Device Medical History (Updated 10/06/23 @ 12:30 by Slime Schafer NP) Neurogenic bladder, NOS Chronic kidney disease, stage 3 Hypertension Anemia Depression Cervical cancer Breast pain Back pain with right-sided radiculopathy Asthma Recurrent cellulitis of lower extremity History of cervical cancer Dyspnea on exertion HTN (hypertension) Anemia Migraines Arthritis Fibromyalgia, primary Surgical History (Updated 06/11/23 @ 12:38 by Aleks Cassidy) History of right knee joint replacement H/O: hysterectomy Social History Social History Household Members: Family Housing: House Do you presently have visiting nurse or other home services: No Alcohol intake: former Comment: refusing fall risk interventions. Patient Tobacco Use Status: Current everyday Tobacco user Tobacco use type: Cigarette Cigarette Packs Per Day: 0.4 Cigarettes Per Day: 8.0 Years Smoked: 40 e-Cigarette/Vaping Use: Never Used Second Hand Smoke Exposure: No Advance Directives: No Advance Directives Information Provided: No Advance Directives Date on File: 12/05/16 service: No Current occupational status: unemployed Physical Exam ED Vital Signs: BMI result Body Mass Index 31.9 Course Course Course Narrative: This is a rapid medical exam: Additional HPI, ROS, PE not included below will be deferred to primary provider. Patient is a 63-year-old female with history of cervical CA, neurogenic bladder self catheterized r/t this, CKD stage 3, asthma, anemia, migraines presenting to the ED with complaint of left flank pain and chills for the past 3 days. Reports nausea, denies vomiting. Does complain of some shortness of breath which just began. Plan: UA, viral swabs, labs Medical Decision Making Lab Data 10/02/23 21:15 10/02/23 21:15 Labs: Lab Results 10/02/23 10/02/23 Range/Units 20:01 21:15 WBC 8.8 (4.8-10.8) X10*3/uL RBC 4.37 D (4.20-5.50) X10*6/uL Hgb 10.7 L D (12.0-16.0) g/dl Hct 35.1 L D (37.0-47.0) % MCV 80.3 (80.0-98.0) fL MCH 24.5 L (27.0-33.0) pg MCHC 30.5 L (31.0-35.0) g/dl RDW 16.0 (11.0-16.0) % Plt Count 267 (160-400) X10*3/uL MPV 10.9 (9.4-12.3) fL Immature Gran % (Auto) 0.1 (0.0-0.4) % Neut % (Auto) 36.8 L (45-73) % Lymph % (Auto) 53.3 H (20-40) % Humphreys % (Auto) 6.1 (2-11) % Eos % (Auto) 3.4 (0-4) % Baso % (Auto) 0.3 (0-2) % Lymph # (Auto) 4.7 (1.2-4.9) X10*3/uL Humphreys # (Auto) 0.5 (0.1-1.2) X10*3/uL Eos # (Auto) 0.3 (0.0-0.4) X10*3/uL Baso # (Auto) 0.0 (0.0-0.2) X10*3/uL Abs Immat Gran (auto) 0.01 (0.00-0.03) X10*3/uL Absolute Neuts (auto) 3.2 (2.0-8.3) x10*3/uL Absolute Nucleated RBC 0.000 (0.0-0.012) X10*3/uL Nucleated RBC % (auto) 0.0 (0.0-0.2) /100WBC Sodium 140 (135-145) mmol/L Potassium 4.3 (3.3-5.1) mmol/L Chloride 106 (96-108) mmol/L Carbon Dioxide 26 (22-29) mmol/L Anion Gap 12 (12-20) BUN 15 (9-16) mg/dL Creatinine 0.88 (0.5-1.4) mg/dL Estim Creat Clear Calc 70.6 Estimated GFR > 60 Random Glucose 85 (60-115) mg/dL Calcium 9.8 (8.4-10.2) mg/dL Total Bilirubin 0.2 (0.0-1.0) mg/dL AST 16 (5-31) U/L ALT 13 (0-31) U/L Alkaline Phosphatase 91 (39-117) U/L Total Protein 7.7 (6.5-8.0) g/dL Albumin 4.3 (3.5-5.0) g/dL Urine Color Yellow Urine Appearance Clear Urine pH 6.5 (5.0-9.0) Ur Specific Overton >= 1.030 H (1.005-1.025) Urine Protein Trace (Neg-Trace) mg/dL Urine Glucose (UA) Negative (Negative) mg/dL Urine Ketones Trace (Negative) mg/dL Urine Blood Negative (Negative) Urine Nitrite Negative (Negative) Ur Leukocyte Esterase Negative (Negative) COVID-19 (RUSS) Negative (Negative) COVID-19 Clin Com See Note Influenza Type A (AMIE) Negative (Negative) Influenza Type B (AMIE) Negative (Negative) Influenza A & B Note See Note Discharge Plan Discharge Clinical Impression: Diagnosis unknown Patient Disposition: Left W/O Completing Treatment Prescriptions: No Action doxycycline hyclate 100 mg capsule 100 mg PO BID Qty: 60 0RF sumatriptan succinate 25 mg tablet 25 mg PO DAILY PRN (Reason: Migraine Headache) docusate sodium 100 mg capsule 1 cap PO DAILY metoprolol succinate 25 mg tablet extended release 24 hr 1 tab PO DAILY lisinopril 40 mg tablet 1 tab PO DAILY acetaminophen 650 mg tablet extended release 2 tab PO Q8H PRN (Reason: pain) nitroglycerin 0.4 mg tablet, sublingual 1 tab sublingual Q5M PRN (Reason: Angina) ondansetron 4 mg tablet,disintegrating 4 mg PO Q8H PRN (Reason: nausea and vomiting) Qty: 10 0RF trazodone 50 mg tablet 50 mg PO BEDTIME polyethylene glycol 3350 17 gram/dose powder 17 g PO DAILY celecoxib 50 mg capsule 50 mg PO DAILY Hold Instructions: Resume on 05/29/23. Certavite-Antioxidant 18-400 mg-mcg tablet 1 tab PO DAILY white petrolatum 42 % ointment 1 appl topical DAILY PRN (Reason: Dry Skin) duloxetine 30 mg capsule,delayed release(DR/EC) 30 mg PO DAILY penicillin V potassium 250 mg tablet 250 mg PO BID 30 Days Qty: 60 1RF Hold Instructions: Resume on 06/22/23. fluconazole [Diflucan] 150 mg tablet 150 mg PO QWEEK Qty: 2 0RF terbinafine HCl 1 % cream 1 appl topical BID 14 Days Qty: 30 0RF Rx Instructions: Prescribed for a #14 days /. Start date was 04/20/23 oxycodone 5 mg Tablet 5 mg PO Q4H PRN (Reason: Pain, Mild (Pain Scale 1-3)) Qty: 10 0RF Rx Instructions: Partial Fill upon patient request. clotrimazole 1 % Cream 1 appl topical BID Qty: 1 0RF Protocol: Apply to: Apply to: web spaces right foot albuterol sulfate [ProAir HFA] 90 mcg/actuation HFA aerosol inhaler 2 puff inhalation Q4-6H PRN (Reason: shortness of breath or wheezing) 30 Days Qty: 8.5 3RF Discharge Date/Time: 10/02/23 23:17
[2023-10-02 20:08] LABS: Appearance Urine Clear; Color Urine Yellow; Glucose Urine UA Negative (Negative); Leukocyte Esterase Urine Negative (Negative); Nitrite Urine Negative (Negative); PH 6.5 (5.0-9.0); Specific Gravity - Urine >= 1.030 (1.005-1.025); Urine Blood Negative (Negative); Urine Ketones Trace mg/dL (Negative); Urine Protein Trace mg/dL (Neg-Trace)
[2023-10-02 21:21] LABS: MANUAL DIFF FLAG NO
[2023-10-02 21:22] LABS: Basophils Percent Auto 0.3 % (0-2); Eosinophils Absolute Auto 0.3 X10*3/uL (0.0-0.4); Eosinophils Percent Auto 3.4 % (0-4); Hematocrit 35.1 % (37.0-47.0); Hemoglobin 10.7 g/dl (12.0-16.0); Imm Gran Abs Auto 0.01 X10*3/uL (0.00-0.03); Imm Gran Pct Auto 0.1 % (0.0-0.4); Lymphocytes Absolute Auto 4.7 X10*3/uL (1.2-4.9); Lymphocytes Percent Auto 53.3 % (20-40); Mean Corpuscular HGB Conc 30.5 g/dl (31.0-35.0); Mean Corpuscular Hemoglobin 24.5 pg (27.0-33.0); Mean Corpuscular Volume 80.3 fL (80.0-98.0); Mean Platelet Volume 10.9 fL (9.4-12.3); Monocytes Absolute Auto 0.5 X10*3/uL (0.1-1.2); Monocytes Percent Auto 6.1 % (2-11); Neutrophils Absolute Auto 3.2 x10*3/uL (2.0-8.3); Neutrophils Percent Auto 36.8 % (45-73); Platelet Count 267 X10*3/uL (160-400); Red Blood Count 4.37 X10*6/uL (4.20-5.50); White Blood Count 8.8 X10*3/uL (4.8-10.8)
[2023-10-02 21:39] LABS: Alanine Aminotransferase 13 U/L (0-31); Albumin Level 4.3 g/dL (3.5-5.0); Alkaline Phosphatase 91 U/L (39-117); Anion Gap 12 (12-20); Aspartate Amino Transferase 16 U/L (5-31); Bilirubin Total 0.2 mg/dL (0.0-1.0); Blood Urea Nitrogen 15 mg/dL (9-16); Calcium 9.8 mg/dL (8.4-10.2); Carbon Dioxide 26 mmol/L (22-29); Chloride 106 mmol/L (96-108); Creatinine Clr Calc Pharmacy 70.6; Estimated Glomerular Filt Rate > 60; Glucose Random 85 mg/dL (60-115); Potassium 4.3 mmol/L (3.3-5.1); Sodium 140 mmol/L (135-145); Total Protein 7.7 g/dL (6.5-8.0)
[2023-10-02 21:43] LABS: COVID-19 Test Negative (Negative); IDNOW Serial# 152EDE1D; IDNOW Serial# 9DB6401D; Influenza A Negative (Negative); Influenza B2 Negative (Negative)
== END 2023-10-02 23:17 | disposition left against medical advice (07) ==
PROVIDERS: Registered Nurse Emergency; Emergency Provider Emergency Medicine
DX: M54.50 Low back pain, unspecified (principal); I12.9 Hypertensive chronic kidney disease with stage 1 through stage 4 chronic kidney disease, or unspecified chronic kidney disease; N18.30 Chronic kidney disease, stage 3 unspecified; F17.210 Nicotine dependence, cigarettes, uncomplicated; Z11.52 Encounter for screening for COVID-19
CPT/HCPCS: 80053; 81003; 85025; 87502; 87635; 99282; 99283

== ENCOUNTER 2023-12-20 19:47 | Emergency (ER) | payer MEDICAID, SELFPAY ==
--- NOTE | ~2023-12-20 | US_ITS ---
EXAMINATION: US VENOUS ULTRASOUND WITH DOPPLER LOWER EXTREMITY, RIGHT CLINICAL INFORMATION: Right lower extremity swelling and pain. COMPARISON: 05/20/2023 TECHNIQUE: Ultrasound of the deep veins is performed from the hip to the calf with compression sonography and color and pulse Doppler assessment. Spectral analysis with color-flow imaging is performed. FINDINGS: There is normal venous compression and respiratory variation and augmented flow. The visualized common femoral vein, superficial femoral vein, profunda femoral vein, popliteal vein, and the trifurcation region shows no evidence of deep venous thrombosis. There is no significant popliteal fossa cyst. If the patient's symptoms persist, followup ultrasound in 5 days 7 days might be of value to exclude proximal propagation from a non-visualized calf vein. US/US venous duplex LE RT IMPRESSION: No DVT demonstrated in the right lower extremity.
--- NOTE | ~2023-12-20 | XR_ITS ---
EXAMS: Lumbar spine 3 views cervical spine 4 views HISTORY: Atraumatic pain. COMPARISON: 08/01/2018 FINDINGS: Mild scoliosis lumbar spine convex left. Numerous clips again noted. Extent of spurring and degeneration of the disc spaces and facet joints is mildly progressive most notable at L4-L5. No spondylolysis. Cervical spine imaging demonstrates advanced degenerative disc disease throughout most notable from C3-C4 to C6-C7. Disc space narrowing and sclerosis and marginal osteophytes. No prevertebral soft tissue swelling. Lung apices clear. Posterior elements intact otherwise. XR/XR cervical spine 3V IMPRESSION: Spondylosis as above.
--- NOTE | ~2023-12-20 | XR_ITS ---
EXAMS: Lumbar spine 3 views cervical spine 4 views HISTORY: Atraumatic pain. COMPARISON: 08/01/2018 FINDINGS: Mild scoliosis lumbar spine convex left. Numerous clips again noted. Extent of spurring and degeneration of the disc spaces and facet joints is mildly progressive most notable at L4-L5. No spondylolysis. Cervical spine imaging demonstrates advanced degenerative disc disease throughout most notable from C3-C4 to C6-C7. Disc space narrowing and sclerosis and marginal osteophytes. No prevertebral soft tissue swelling. Lung apices clear. Posterior elements intact otherwise. XR/XR lumbar spine 2-3V IMPRESSION: Spondylosis as above.
[2023-12-20 19:54] VITALS: BP 171/90; PULSE 93; RESP 18; TEMP 36.9; O2SAT 99; BMI 32.0
--- NOTE | 2023-12-20 19:54 | ED_ITS ---
HPI - General Adult General Chief complaint: General Medical Stated complaint: pain in arms and legs Time Seen by Provider: 12/20/23 20:58 Source: patient Mode of arrival: ambulatory Limitations: no limitations History of Present Illness HPI narrative: 63-year-old female with history of chronic pain presents to ED for upper back/neck pain with radiating pain down to her bilateral upper extremity with sharp pain tingling. Patient's secondary complaint is right thigh pain without any trauma. Patient has history of right knee replacement but negative for swelling or warmth. Patient states no recent trauma, chest pain, or shortness of breath. Patient states no chest pain or shortness of breath. Patient denies any slurred speech, facial droop, or paralysis of extremities. Patient states no loss of vision. Patient states no dizzy Related Data Home Medications ?Medication ?Instructions ?Recorded ?Confirmed acetaminophen 650 mg 2 tab PO Q8H PRN pain 10/11/22 06/21/23 tablet,extended release docusate sodium 100 mg capsule 1 cap PO DAILY constipation 10/11/22 06/21/23 lisinopril 40 mg tablet 1 tab PO DAILY 10/11/22 06/21/23 metoprolol succinate 25 mg 1 tab PO DAILY 10/11/22 06/21/23 tablet,extended release 24 hr nitroglycerin 0.4 mg sublingual 1 tab sublingual Q5M PRN Angina 10/11/22 06/21/23 tablet sumatriptan succinate 25 mg tablet 25 mg PO DAILY PRN Migraine 10/11/22 06/21/23 Headache celecoxib 50 mg capsule 50 mg PO DAILY 05/08/23 06/21/23 duloxetine 30 mg capsule,delayed 30 mg PO DAILY 05/08/23 06/21/23 release multivitamin-ferrous 1 tab PO DAILY 05/08/23 06/21/23 fumarate-folic acid 18 mg-400 mcg tablet (Certavite-Antioxidant) polyethylene glycol 3350 17 17 g PO DAILY 05/08/23 06/21/23 gram/dose oral powder trazodone 50 mg tablet 50 mg PO BEDTIME 05/08/23 06/21/23 white petrolatum 42 % topical 1 appl topical DAILY PRN Dry Skin 05/08/23 06/21/23 ointment Previous Rx's ?Medication ?Instructions ?Recorded albuterol sulfate 90 mcg/actuation 2 puff inhalation Q4-6H PRN 08/03/20 aerosol inhaler (ProAir HFA) shortness of breath or wheezing 30 days #8.5 grams ondansetron 4 mg disintegrating 4 mg PO Q8H PRN nausea and 10/13/22 tablet vomiting #10 tabs fluconazole 150 mg tablet 150 mg PO QWEEK #2 tabs 05/10/23 (Diflucan) penicillin V potassium 250 mg 250 mg PO BID 30 days #60 tabs 05/10/23 tablet terbinafine HCl 1 % topical cream 1 appl topical BID 14 days #30 05/10/23 grams clotrimazole 1 % topical cream 1 appl topical BID #1 g 05/24/23 oxycodone 5 mg tablet 5 mg PO Q4H PRN Pain, Mild (Pain 05/24/23 Scale 1-3) #10 tabs doxycycline hyclate 100 mg capsule 100 mg PO BID #60 caps 06/26/23 oxycodone 5 mg capsule 5 mg PO Q8H PRN pain 3 days #9 caps 12/21/23 prednisone 20 mg tablet 40 mg (2 x 20 mg) PO DAILY 5 days 12/21/23 #10 tabs Allergies Allergy/AdvReac Type Severity Reaction Status Date / Time buspirone [From BuSpar] Allergy Mild Tongue Verified 12/20/23 20:00 Swelling, dizziness ibuprofen [From Motrin] AdvReac Mild Rash, HTN Verified 12/20/23 20:00 Review of Systems 2 Review of Systems: Neck upper back pain, bilateral upper extremity pain and tingling. Right thigh pain Yes all other systems are reviewed and are negative PMFSH Past Medical History Medical History (Updated 12/22/23 @ 00:00 by Carol Ann Bowling) Neurogenic bladder, NOS Chronic kidney disease, stage 3 Hypertension Anemia Depression Cervical cancer Breast pain Back pain with right-sided radiculopathy Asthma Recurrent cellulitis of lower extremity History of cervical cancer Dyspnea on exertion HTN (hypertension) Anemia Migraines Arthritis Fibromyalgia, primary Surgical History (Updated 06/11/23 @ 12:38 by Aleks Cassidy) History of right knee joint replacement H/O: hysterectomy Social History Social History Household Members: Family Housing: House Do you presently have visiting nurse or other home services: No Alcohol intake: never Comment: refusing fall risk interventions. Patient Tobacco Use Status: Current everyday Tobacco user Tobacco use type: Cigarette Cigarette Packs Per Day: 0.4 Cigarettes Per Day: 8.0 Years Smoked: 40 Smoked in Last 30 Days: No e-Cigarette/Vaping Use: Never Used Second Hand Smoke Exposure: No Use of substances other than those prescribed or required for medical reasons: No Advance Directives: No Advance Directives Information Provided: No Advance Directives Date on File: 12/05/16 service: No Current occupational status: unemployed Physical Exam ED Vital Signs: Vital Signs - 24 hr 12/20/23 19:54 12/20/23 22:34 Temperature 98.5 F 98.5 F Pulse Rate 93 72 Respiratory Rate 18 20 Blood Pressure 171/90 H 149/83 H Pulse Oximetry 99 98 Oxygen Delivery Method Room Air Room Air BMI result Body Mass Index 32.0 Const General: cooperative, healthy appearing, comfortable, no acute distress, well developed, alert and awake Orientation/consciousness: oriented to person, oriented to place, oriented to time and patient oriented x3 HENMT Head: Yes normal to inspection, Yes No palpable skull fracture present, Yes normocephalic, Yes atraumatic and No abrasion Eyes General: appearance normal, both eyes and all related structures Neck Neck: Yes normal visual inspection, Yes full ROM, Yes no lymphadenopathy, Yes no meningeal signs, Yes trachea midline, Yes supple, No anterior neck swelling and Yes tender (posterior cervical tenderness. ) Chest Chest palpation & inspection: normal inspection of the chest and normal palpation of entire chest wall Resp Effort & Inspection: normal respiratory effort and able to speak in complete sentences Auscultation: clear to auscultation bilaterally Cardio Jugular venous distension: no JVD Heart sounds: S1 normal heart sound present and S2 normal heart sound present GI Inspection: Yes normal to inspection Palpation (GI): Soft to palpation, not firm, nontender, no guarding and not rigid General: No CVA tenderness and Yes no CVA tenderness Back/Spine/Pelvis Back: no CVA tenderness, No CVA tenderness and back tenderness Back/spine/pelvis image: 2 1. Tenderness on palpation. Negative for crepitus erythema or rash Skin General skin exam: no rashes or lesions noted, elasticity normal and turgor normal Full body images: 2 1. Tenderness on palpation and range of motion. Negative for swelling, erythema, crepitus, ecchymosis, or deformities. Motor/neuro/vascular exam intact. 2. Tenderness on palpation and range of motion. Negative for swelling, erythema, crepitus, ecchymosis, or deformities. Motor/neuro/vascular exam intact. Neuro General: oriented to person, oriented to place, oriented to time, patient oriented x3, gait normal, tone normal, moves all extremities, Normal light touch and pain sensation, no meningeal signs, no focal motor deficits, CN's II-XI intact bilaterally and normal sensation to monofilament Extrem Other: Right knee exam is normal. not suspecting septic joint or fracture. General: Yes normal to inspection, Yes full ROM and Yes capillary refill normal Upper/lower leg/hip images: 2 1. Tenderness on palpation. negative for erryhthema, ecchymosis, mass, fluctulance, deformity or crepitus. Rest of extremity normal. Motor,neuro, and vascular exam. Psych Appearance: grossly normal, well kempt and not disheveled Course Course Course Narrative: RME:?63 yo female w/ hx of cervical cancer, anemia, HTN, stage 3 CKD, HTN here w/ multiple complaints. endorses bilateral upper extremity pain that began in her neck 2 wks ago, now extending down bilateral UEs. endorses tingling/numbness down the extremities. Denies injury/trauma. Additionally endorses left lower back pain described as a burning sensation. denies dysuria, hematuria. self- catheterizes. she has not called her PCP. shes been taking tylenol at home without relief, last dose this morning. basic labs, UA, imaging ordered. Full HPI, ROS and PE to be performed by the primary ED provider. Medications Administered Discontinued Medications Generic Name Dose Route Start Last Admin Trade Name Freq PRN Reason Stop Dose Admin Cyclobenzaprine HCl 10 mg 12/21/23 00:21 12/21/23 00:39 Cyclobenzaprine Hcl 10 Mg Tablet PO 12/21/23 00:22 10 mg ONCE ONE Administration Oxycodone HCl 5 mg 12/20/23 21:55 12/20/23 21:58 Oxycodone Hcl Immed Release 5 Mg Tablet PO 12/20/23 21:56 5 mg ONCE ONE Administration Prednisone 60 mg 12/20/23 21:55 12/20/23 21:59 Prednisone 20 Mg Tablet PO 12/20/23 21:56 60 mg ONCE ONE Administration Medical Decision Making Medical Decision Making [facility] Narrative: [age] year female with chronic pain, history of cervical cancer, CKD stag, presents to ED for neck back pain radiating down arms and also right thigh pain without any trauma. Patient denies any urinary/bowel incontinence. Patient denies any IV drug use. Patient denies any paralysis of upper extremities. Patient denies any fever chills. Labs normal. Spine lumbar and cervical spine x-ray shows radiculopathy and narrowing. Not suspecting carotid dissection or vetebral dissection. not suspecting epidural abscess or cauda equinus syndrome. Patient given pain medication. Ultrasound negative for DVT. Patient is safe for discharge. Differential Diagnosis Differential Diagnoses: The differential diagnosis associated with the presentation includes (Cervical radiculopathy, lumbar radiculopathy, cervical lumbar fracture, UTI, DVT,) Admission/Observation Consideration of admission/observation: Escalation of care including admission/observation considered Lab Data [facility] Lab Attestation statement: I reviewed the patient's lab results. 12/20/23 20:18 12/20/23 20:18 Labs: Lab Results 12/20/23 Range/Units 20:18 WBC 11.2 H (4.8-10.8) X10*3/uL RBC 4.29 (4.20-5.50) X10*6/uL Hgb 10.8 L (12.0-16.0) g/dl Hct 34.9 L (37.0-47.0) % MCV 81.4 (80.0-98.0) fL MCH 25.2 L (27.0-33.0) pg MCHC 30.9 L (31.0-35.0) g/dl RDW 16.1 H (11.0-16.0) % Plt Count 264 (160-400) X10*3/uL MPV 10.9 (9.4-12.3) fL Immature Gran % (Auto) 0.4 (0.0-0.4) % Neut % (Auto) 43.3 L (45-73) % Lymph % (Auto) 45.9 H (20-40) % [place] % (Auto) 7.0 (2-11) % Eos % (Auto) 3.0 (0-4) % Baso % (Auto) 0.4 (0-2) % Lymph # (Auto) 5.2 H (1.2-4.9) X10*3/uL [place] # (Auto) 0.8 (0.1-1.2) X10*3/uL Eos # (Auto) 0.3 (0.0-0.4) X10*3/uL Baso # (Auto) 0.1 (0.0-0.2) X10*3/uL Abs Immat Gran (auto) 0.04 H (0.00-0.03) X10*3/uL Absolute Neuts (auto) 4.9 (2.0-8.3) x10*3/uL Absolute Nucleated RBC 0.000 (0.0-0.012) X10*3/uL Nucleated RBC % (auto) 0.0 (0.0-0.2) /100WBC Smear Tech's Comments VERIFIED Sodium 139 (135-145) mmol/L Potassium 3.8 (3.3-5.1) mmol/L Chloride 108 (96-108) mmol/L Carbon Dioxide 22 (22-29) mmol/L Anion Gap 13 (12-20) BUN 18 H (9-16) mg/dL Creatinine 0.69 (0.5-1.4) mg/dL Estim Creat Clear Calc 90.1 Estimated GFR > 60 Random Glucose 102 (60-115) mg/dL Calcium 9.7 (8.4-10.2) mg/dL Total Bilirubin 0.2 (0.0-1.0) mg/dL AST 15 (5-31) U/L ALT 12 (0-31) U/L Alkaline Phosphatase 114 (39-117) U/L Total Protein 7.9 (6.5-8.0) g/dL Albumin 4.2 (3.5-5.0) g/dL Urine Color Yellow Urine Appearance Clear Urine pH 5.5 (5.0-9.0) Ur Specific [place] 1.025 (1.005-1.025) Urine Protein Negative (Neg-Trace) mg/dL Urine Glucose (UA) Negative (Negative) mg/dL Urine Ketones Negative (Negative) mg/dL Urine Blood Negative (Negative) Urine Nitrite Negative (Negative) Ur Leukocyte Esterase Negative (Negative) Independent Interpretation I performed an independent interpretation of an: Plain X-Ray and Ultrasound Radiology Impression Discussion of test interpretation with radiology: I have reviewed the radiologist's reading. Independent Historian Clinical information obtained from an independent historian. History obtained from or confirmed by: Other (Patient) External Record Review External record reviewed: Other (Private) Prescription Management I considered prescription management with: Pain Medication Discharge Plan Discharge Clinical Impression: Cervical radiculopathy, Lumbar radiculopathy Patient Disposition: Home, Self-Care Instructions: Lumbar Radiculopathy (ED), Cervical Radiculopathy (ED), Leg Pain (ED) Additional Instructions: Xray shows cervical and lumbar arthritis. Right lower extremity ultrasound negative for blood clot. Recommend follow-up with primary care provider. Return to the ED immediately for worsening pain, stiffness of neck, paralysis of upper lower extremities, headache, facial droop, chest pain, shortness of breath, abdominal pain, calf pain, leg swelling, redness, coughing up blood, or any other concerning symptoms. Prescriptions: New oxycodone 5 mg capsule 5 mg PO Q8H PRN (Reason: pain) 3 Days Qty: 9 0RF Rx Instructions: Partial Fill upon patient request. prednisone 20 mg tablet 40 mg PO DAILY 5 Days Qty: 10 0RF No Action doxycycline hyclate 100 mg capsule 100 mg PO BID Qty: 60 0RF sumatriptan succinate 25 mg tablet 25 mg PO DAILY PRN (Reason: Migraine Headache) docusate sodium 100 mg capsule 1 cap PO DAILY metoprolol succinate 25 mg tablet extended release 24 hr 1 tab PO DAILY lisinopril 40 mg tablet 1 tab PO DAILY acetaminophen 650 mg tablet extended release 2 tab PO Q8H PRN (Reason: pain) nitroglycerin 0.4 mg tablet, sublingual 1 tab sublingual Q5M PRN (Reason: Angina) ondansetron 4 mg tablet,disintegrating 4 mg PO Q8H PRN (Reason: nausea and vomiting) Qty: 10 0RF trazodone 50 mg tablet 50 mg PO BEDTIME polyethylene glycol 3350 17 gram/dose powder 17 g PO DAILY celecoxib 50 mg capsule 50 mg PO DAILY Hold Instructions: Resume on 05/29/23. Certavite-Antioxidant 18-400 mg-mcg tablet 1 tab PO DAILY white petrolatum 42 % ointment 1 appl topical DAILY PRN (Reason: Dry Skin) duloxetine 30 mg capsule,delayed release(DR/EC) 30 mg PO DAILY penicillin V potassium 250 mg tablet 250 mg PO BID 30 Days Qty: 60 1RF Hold Instructions: Resume on 06/22/23. fluconazole [Diflucan] 150 mg tablet 150 mg PO QWEEK Qty: 2 0RF terbinafine HCl 1 % cream 1 appl topical BID 14 Days Qty: 30 0RF Rx Instructions: Prescribed for a #14 days /. Start date was 04/20/23 oxycodone 5 mg Tablet 5 mg PO Q4H PRN (Reason: Pain, Mild (Pain Scale 1-3)) Qty: 10 0RF Rx Instructions: Partial Fill upon patient request. clotrimazole 1 % Cream 1 appl topical BID Qty: 1 0RF Protocol: Apply to: Apply to: web spaces right foot albuterol sulfate [ProAir HFA] 90 mcg/actuation HFA aerosol inhaler 2 puff inhalation Q4-6H PRN (Reason: shortness of breath or wheezing) 30 Days Qty: 8.5 3RF Stand Alone Forms: Work/School Release Interventions: ED Discharge Assessment Last Done: 12/21/23 00:45 Discharge Date/Time: 12/21/23 00:46 Print Language: Japanese
[2023-12-20 20:29] LABS: Appearance Urine Clear; Color Urine Yellow; Glucose Urine UA Negative (Negative); Leukocyte Esterase Urine Negative (Negative); Nitrite Urine Negative (Negative); PH 5.5 (5.0-9.0); Specific Gravity - Urine 1.025 (1.005-1.025); Urine Blood Negative (Negative); Urine Ketones Negative (Negative); Urine Protein Negative (Neg-Trace)
[2023-12-20 20:31] LABS: Basophils Absolute Auto 0.1 X10*3/uL (0.0-0.2); Basophils Percent Auto 0.4 % (0-2); Eosinophils Absolute Auto 0.3 X10*3/uL (0.0-0.4); Hematocrit 34.9 % (37.0-47.0); Hemoglobin 10.8 g/dl (12.0-16.0); Imm Gran Abs Auto 0.04 X10*3/uL (0.00-0.03); Imm Gran Pct Auto 0.4 % (0.0-0.4); Lymphocytes Absolute Auto 5.2 X10*3/uL (1.2-4.9); Lymphocytes Percent Auto 45.9 % (20-40); MANUAL DIFF FLAG SCAN; Mean Corpuscular HGB Conc 30.9 g/dl (31.0-35.0); Mean Corpuscular Hemoglobin 25.2 pg (27.0-33.0); Mean Corpuscular Volume 81.4 fL (80.0-98.0); Mean Platelet Volume 10.9 fL (9.4-12.3); Monocytes Absolute Auto 0.8 X10*3/uL (0.1-1.2); Neutrophils Absolute Auto 4.9 x10*3/uL (2.0-8.3); Neutrophils Percent Auto 43.3 % (45-73); Platelet Count 264 X10*3/uL (160-400); Red Blood Count 4.29 X10*6/uL (4.20-5.50); Red Cell Distribution Width 16.1 % (11.0-16.0); SCAN SMEAR FLAG 1; White Blood Count 11.2 X10*3/uL (4.8-10.8)
[2023-12-20 20:43] LABS: Alanine Aminotransferase 12 U/L (0-31); Albumin Level 4.2 g/dL (3.5-5.0); Alkaline Phosphatase 114 U/L (39-117); Anion Gap 13 (12-20); Aspartate Amino Transferase 15 U/L (5-31); Bilirubin Total 0.2 mg/dL (0.0-1.0); Blood Urea Nitrogen 18 mg/dL (9-16); Calcium 9.7 mg/dL (8.4-10.2); Carbon Dioxide 22 mmol/L (22-29); Chloride 108 mmol/L (96-108); Creatinine Clr Calc Pharmacy 90.1; Estimated Glomerular Filt Rate > 60; Glucose Random 102 mg/dL (60-115); Potassium 3.8 mmol/L (3.3-5.1); Sodium 139 mmol/L (135-145); Total Protein 7.9 g/dL (6.5-8.0)
[2023-12-20 21:06] LABS: SLIDE REVIEW VERIFIED
--- NOTE | 2023-12-20 21:11 | PC.NURSE ---
Pt asking multiple staff members for something for her pain, made aware that we are awaiting provider evaluation - that provider would be the one to order any kind of medication.
[2023-12-20] MEDS: oxyCODONE HCl Immed Release 5 MG TABLET PO (21:58)
[2023-12-20] MEDS: predniSONE 20 MG TABLET 60 MG PO (21:59)
--- NOTE | 2023-12-20 22:10 | PC.NURSE ---
Pt ambulatory to the BR with a steady gait.
--- NOTE | 2023-12-20 22:18 | PC.NURSE ---
US tech at bedside at this time.
[2023-12-20 22:34] VITALS: BP 149/83; PULSE 72; RESP 20; TEMP 36.9; O2SAT 98
[2023-12-21] VITALS: BP 149/83; PULSE 72; RESP 18; TEMP 36.9; O2SAT 98
[2023-12-21] MEDS: Cyclobenzaprine HCl 10 MG TABLET PO (00:39)
[2023-12-21 00:45] VITALS: BP 149/83; PULSE 72; RESP 18; TEMP 36.9
== END 2023-12-21 00:46 | disposition home or self-care (01) ==
PROVIDERS: Physician Assistant Medical; Emergency Provider Internal Medicine; PCP General Practice
DX: M54.12 Radiculopathy, cervical region (principal); R60.0 Localized edema; M54.16 Radiculopathy, lumbar region; M79.601 Pain in right arm; M79.602 Pain in left arm; M54.2 Cervicalgia; M54.50 Low back pain, unspecified; M79.604 Pain in right leg; Z79.899 Other long term (current) drug therapy
CPT/HCPCS: 36415; 72040; 72100; 80053; 81003; 85025; 93971; 99284

== ENCOUNTER 2024-01-14 12:20 | Outpatient (AMB) | payer MEDICAID, SELFPAY ==
--- NOTE | 2024-01-14 12:45 | MHC.OFFVIS ---
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 Denies any past or recent trauma, injury or falls. Reports flare up in pain in arms, legs and back for the past 2 months. Reports numbness and tingling in arms and legs. Back and neck pain is axial and easily exacerbated with any movement, extension or flexion. SLR testing is negative. Patient reports she is unable to bend her right knee after right TKR, done at [facility] [place]. Pain generators are constant, rates it at 10/10. Pain affects her ADLs, mobility, sleep, mood, social interactions and quality of life. Denies any fever, weight loss, abdominal or groin pain, bowel dysfunction or saddle anesthesia. Reports self-catheterization since cervix cancer removal in 1996. Reports multiple hospitalizations and ER visits due to chronic pain. Patient requests our office to take over opioid prescribing and requests more medication as most recent dose is not providing her adequate analgesia. I have informed patient that at this time, I do not offer opioid prescribing. Per [employer] review, patient refilled script for oxycodone 5 mg #30 tabs on 12/27/23 prescribed by her PCP. Oswestry Low Back Disability Score=43 (completely disabled). Patient reports she is awaiting insurance approval for [employer] services to help her with cleaning, bathing, cooking and laundry. She in unemployed, currently on permanent disability. Patient also reports chronic migraines, takes OTC meds and Sumatriptan prn with inadequate relief. Location: Lower back pain, widespread body pain, chronic migraines Duration: Chronic pain, worsening over the past 2 months Characteristics of symptom or complaint: Aching, burning, stabbing, sharp, tingling, numbness, hurting, tiring Aggravating or associated factors: Cold weather, movements, bending, walking, standing Relieving factors: Heat, Tylenol, duloxetine, oxycodone Treatment: Daily walking [facility] Medical History (Updated 01/15/24 @ 12:15 by JESUS Horner) Fibromyalgia Chronic pain syndrome Neurogenic bladder, NOS Chronic kidney disease, stage 3 Hypertension Anemia Depression Cervical cancer Breast pain Back pain with right-sided radiculopathy Asthma Recurrent cellulitis of lower extremity History of cervical cancer Dyspnea on exertion HTN (hypertension) Anemia Migraines Arthritis Fibromyalgia, primary Surgical History (Updated 06/11/23 @ 12:38 by Aleks Cassidy) History of right knee joint replacement H/O: hysterectomy Social History Household Members: Family Housing: House Do you presently have visiting nurse or other home services: No Alcohol intake: never Comment: refusing fall risk interventions. Patient Tobacco Use Status: Current everyday Tobacco user Tobacco use type: Cigarette Cigarette Packs Per Day: 0.4 Cigarettes Per Day: 8.0 Years Smoked: 40 e-Cigarette/Vaping Use: Never Used Second Hand Smoke Exposure: No Advance Directives Date on File: 12/05/16 service: No Current occupational status: unemployed Review of Systems Const All systems reviewed & are unremarkable except as noted in HPI and below Neuro Denies Sensory deficit (Neuro) Physical Exam Vital Signs: Last Vital Signs Pulse 90 01/14/24 12:52 BP 136/74 01/14/24 12:52 Pulse Ox 99 01/14/24 12:52 Oxygen Delivery Method Room Air 01/14/24 12:52 BMI result Body Mass Index 32.1 General: Appears afebrile. Alert and oriented. Mood and affect appropriate. Follows and participates in conversation appropriately. Respiratory effort is unlabored. No cough. Able to transition from sit to stand unassisted. Uses cane with ambulation. Ambulates with normal heel strike and toe off on the left, unsteady on the right. Unable to bend right knee, h/o right TKR. Neck Neck: Yes no lymphadenopathy, Yes supple, No anterior neck swelling, Yes no JVD and No prominent dorsocervical fat pad Back/Spine/Pelvis Other: Limited lumbar ROM. Slow, antalgic gait with mild limping, favoring left side. Can flex forward to 50-60 degrees and extend to 5-10 degrees before experiencing lumbar pain. Demonstrates 5/5 strength of quadriceps bilaterally as well as flexion/dorsiflexion of bilateral feet against resistance. 2+ pedal pulses bilaterally. Seated straight leg rise with dorsiflexion negative bilaterally. Diminished patellar and achilles reflexes bilaterally. Facet loading test positive bilaterally. Lidya sign, limited Aiden's, Pelvic compression and Stinchfield tests are positive bilaterally. No groin pain with I/E hip rotations. Multiple widespread TTPs 16/16 bilaterally, including upper and lower extremities. Cervical Spine: loss of normal cervical lordosis, cervical muscular tenderness, pain with cervical ROM and No Cervical spine tenderness Thoracic/Lumbar Spine: thoracic and lumbar spine normal to inspection, No Thoracic/lumbar spine scar(s), Lasegue's sign negative, straight leg raise negative bilaterally, pain with thoraco-lumbar ROM, paraspinal muscle tenderness, thoraco-lumbar ROM limited, Thoracic/lumbar scoliosis, No thoracic spinal tenderness and lumbar spinal tenderness (L3-S1) Pelvis: buttock tenderness bilaterally Sacroiliac joints: bilaterally tender to palpation Neuro General: CN's II-XI intact bilaterally Cognition (Neuro): normal cognition Gait exam (Neuro): Normal gait present and No Assistive device used Motor exam (neuro): 5/5 motor strength present throughout, no tremor noted and Motor abnormalities not present Sensory Exam: No Sensory deficit (Neuro) Results Reviewed Results Reviewed: Lumbar spine 3 views cervical spine 4 views 12/20/23 HISTORY: Atraumatic pain. COMPARISON: 08/01/2018 FINDINGS: Mild scoliosis lumbar spine convex left. Numerous clips again noted. Extent of spurring and degeneration of the disc spaces and facet joints is mildly progressive most notable at L4-L5. No spondylolysis. Cervical spine imaging demonstrates advanced degenerative disc disease throughout most notable from C3-C4 to C6-C7. Disc space narrowing and sclerosis and marginal osteophytes. No prevertebral soft tissue swelling. Lung apices clear. Posterior elements intact otherwise. IMPRESSION: Spondylosis as above. Assessment & Plan Assessment & Plan (1) Migraines: Code(s): G43.909 - Migraine, unspecified, not intractable, without status migrainosus Category: Medical (2) Chronic pain syndrome: Code(s): G89.4 - Chronic pain syndrome Category: Medical (3) Lumbosacral spondylosis: Code(s): M47.817 - Spondylosis without myelopathy or radiculopathy, lumbosacral region Category: Medical (4) Cervical spondylosis: Code(s): M47.812 - Spondylosis without myelopathy or radiculopathy, cervical region Category: Medical (5) Fibromyalgia: Code(s): M79.7 - Fibromyalgia Category: Medical (6) Myofascial pain: Code(s): M79.18 - Myalgia, other site Category: Medical Plan Patient's neck and back pain consistent with xray findings with spondylosis, muscle spasms and multiple tender points due to fibromyalgia. We discussed interventional treatments for axial cervical and lumbar spine pain, including diagnostic injections for potential Sprint PNS trial or RFA, as well as therapeutic injections. Informational booklets provided to patient. Schedule Bilateral Diagnostic L3-L4 DR L5 MBB with local and fluoroscopy for potential Sprint PNS trial. Expectations, risks and benefits were reviewed. Patient is aware she will be contacted to schedule this procedure. Discussed management of fibromyalgia with patient, including daily physical activity, weight loss, well-balanced diet, adequate hydration, light exercises such as swimming, with therapy, stretching and aerobic exercise. Recommend sleep hygiene and CBT therapy. Will start on gabapentin. Side effects and precautions discussed with patient. For migraines prevention, discussed to avoid known triggers. Scripts provided for magnesium glycinate and Vitamin B2. All questions were answered and the patient is in agreement of plan. Follow-up after injections and sooner as needed. Medications: New magnesium glycinate 100 mg PO BID 30 days 60 tabs 0RF pain G43.909 - Migraine, unspecified, not intractable, without status migrainosus riboflavin (vitamin B2) 400 mg PO DAILY 30 days 30 tabs 0RF pain G43.909 - Migraine, unspecified, not intractable, without status migrainosus gabapentin 300 mg PO BID 30 days 60 caps 0RF pain G89.4 - Chronic pain syndrome, M47.817 - Spondylosis without myelopathy or radiculopathy, lumbosacral region Coding Level of Care Code New Pt Level 4 (86538) Diagnoses Migraines G43.909 Chronic pain syndrome G89.4 Lumbosacral spondylosis M47.817 Cervical spondylosis M47.812 Fibromyalgia M79.7 Myofascial pain M79.18
[2024-01-14 12:52] VITALS: BP 136/74; PULSE 90; O2SAT 99; BMI 32.1
== END 2024-01-14 13:35 | disposition home or self-care (01) ==
PROVIDERS: PCP General Practice; Visit Provider Nurse Practitioner Family
DX: G43.909 Migraine, unspecified, not intractable, without status migrainosus (principal); G89.4 Chronic pain syndrome; M47.817 Spondylosis without myelopathy or radiculopathy, lumbosacral region; M47.812 Spondylosis without myelopathy or radiculopathy, cervical region; M79.7 Fibromyalgia; M79.18 Myalgia, other site
CPT/HCPCS: 99204

== ENCOUNTER → 2024-01-14 12:20 | Outpatient (BNVA) | payer MEDICAID, SELFPAY | PROVIDERS: PCP General Practice; Visit Provider Nurse Practitioner Family | DX: M47.817 Spondylosis without myelopathy or radiculopathy, lumbosacral region (principal); M47.812 Spondylosis without myelopathy or radiculopathy, cervical region; M79.7 Fibromyalgia; G43.909 Migraine, unspecified, not intractable, without status migrainosus; G89.4 Chronic pain syndrome | CPT/HCPCS: 99212 ==

== ENCOUNTER 2024-01-22 14:03 | Outpatient (REF) | payer MEDICAID, SELFPAY | END 2024-01-22 14:04 | disposition home or self-care (01) | LOC: HO.MAMMO 14:03 | PROVIDERS: PCP General Practice; Visit Provider General Practice | DX: Z12.31 Encounter for screening mammogram for malignant neoplasm of breast (principal) | CPT/HCPCS: 77063; 77067 ==

== ENCOUNTER → 2024-01-22 14:45 | Outpatient (BNV) | payer MEDICAID, SELFPAY | PROVIDERS: PCP General Practice; Visit Provider Radiology Diagnostic Radiology | DX: Z12.31 Encounter for screening mammogram for malignant neoplasm of breast (principal) | CPT/HCPCS: 77063; 77067 ==

== ENCOUNTER 2024-01-31 07:13 | Outpatient (REF) | payer MEDICAID, SELFPAY ==
--- NOTE | ~2024-01-31 | FL_ITS ---
EXAMINATION: XR FLUOROSCOPY WITH IMAGES CLINICAL INFORMATION: Spondylosis without myelopathy. COMPARISON: None available. TECHNIQUE: Fluoroscopy Supervised By: Dr. Yvon Rodriguez. Fluoroscopy Time: 0.1 minutes. Cumulative Dose: 1.55 mGy. DAP: 0.0174 Gy-cm2. Images: 2. FINDINGS: Intraoperative fluoroscopy and spot films were performed during a procedure in the OR. Spinal needles are seen at 2 consecutive levels bilaterally in lumbosacral spine with contrast injected for transforaminal injection. Exact site cannot be ascertained secondary to marked coning of the images. Please see Dr. Yvon Rodriguez' report for complete details. FL/FL guidance in treatment room IMPRESSION: Intraoperative fluoroscopy and spot films were obtained. Please see Dr. Yvon Rodriguez' report for complete details.
== END 2024-01-31 07:14 | disposition home or self-care (01) ==
LOC: CF 07:13
PROVIDERS: PCP General Practice; Visit Provider Internal Medicine
DX: M47.817 Spondylosis without myelopathy or radiculopathy, lumbosacral region (principal); M47.812 Spondylosis without myelopathy or radiculopathy, cervical region
CPT/HCPCS: 64493; 64494; J2795; Q9967

== ENCOUNTER 2024-01-31 13:37 | Outpatient (AMB) | payer MEDICAID, SELFPAY ==
--- NOTE | 2024-01-31 13:47 | MHC.OFFVIS ---
Vital Signs 01/31/24 14:55 01/31/24 14:56 Height 5 ft 4 in Weight 187 lb BMI 32.1 BP 162/98 H 140/92 H Blood Pressure Location Lt brachial Lt brachial Position Sitting Sitting Respiration 20 18 Pulse 99 97 Pulse Source Pulse Oximeter Pulse Oximeter Pulse Oximetry (%) 97 96 Oxygen Delivery Method Room Air Room Air Comment Pre-Op Post-Op Intake Visit Reasons: Matthew Dx L3-L4-DR-L5 MBB Allergies buspirone [From BuSpar] Allergy (Mild, Verified 01/14/24 12:52) Tongue Swelling, dizziness ibuprofen [From Motrin] Adverse Reaction (Mild, Verified 01/14/24 12:52) Rash, HTN HPI HPI Matthew Dx L3-L4-DR-L5 MBB: Details: Patient presents for scheduled procedure. Denies any recent cough, cold, infection, fever or other significant changes in medical history since last office visit. [facility] Medical History (Updated 01/15/24 @ 12:15 by JESUS Horner) Fibromyalgia Chronic pain syndrome Neurogenic bladder, NOS Chronic kidney disease, stage 3 Hypertension Anemia Depression Cervical cancer Breast pain Back pain with right-sided radiculopathy Asthma Recurrent cellulitis of lower extremity History of cervical cancer Dyspnea on exertion HTN (hypertension) Anemia Migraines Arthritis Fibromyalgia, primary Surgical History (Updated 06/11/23 @ 12:38 by Aleks Cassidy) History of right knee joint replacement H/O: hysterectomy Social History Household Members: Family Housing: House Do you presently have visiting nurse or other home services: No Alcohol intake: never Comment: refusing fall risk interventions. Patient Tobacco Use Status: Current everyday Tobacco user Tobacco use type: Cigarette Cigarette Packs Per Day: 0.4 Cigarettes Per Day: 8.0 Years Smoked: 40 e-Cigarette/Vaping Use: Never Used Second Hand Smoke Exposure: No Advance Directives Date on File: 12/05/16 service: No Current occupational status: unemployed Physical Exam Vital Signs: Last Vital Signs Pulse 97 01/31/24 14:56 Resp 18 01/31/24 14:56 BP 140/92 H 01/31/24 14:56 Pulse Ox 96 01/31/24 14:56 Oxygen Delivery Method Room Air 01/31/24 14:56 BMI result Body Mass Index 32.1 Office Procedures Lumbar/Sacral Facet Inj Details: Lumbar Medial Branch Block, bilateral L3, L4 medial branches and L5 Dorsal Ramus (2 levels, 3 nerves) After obtaining written consent, pre-procedure blood pressure and pulse were recorded and are in the nursing record for review. The patient was placed in a prone position. The respective lumbosacral area was prepped with chloraprep and draped in sterile fashion. The skin over the target medial branch nerves was anesthetized with 0.5% lidocaine. A 22 gauge 3.5 inch needle was inserted into the target medial branch nerve under fluoroscopic guidance. No paresthesias were elicited with needle placement and aspiration was negative for blood and CSF. Next, 0.2cc of omnipaque 180 was injected to verify positioning. Next 0.5 ml 0.5% ropivicaine was injected (0.5cc total per level). The identical procedure was performed at the remaining levels. The skin was cleansed and a sterile bandage was applied. Following the procedure the patient's vital signs were stable. The patient tolerated the procedure well and no complications were encountered. Following the procedure the patient's vital signs were stable. The patient was discharged home in good condition with post-procedural instructions. Time Out: Immediately prior to the procedure, the following was verbally confirmed that there is a signed consent form and that the correct patient, planned procedure, site and side are consistent with documentation and that necessary equipment and/or blood products are available prior to the start of the case. Complications: none EBL: <5 cc 83569 - with Fluoroscopy 10580 - second level, with Fluoroscopy (Bilateral) Procedure code (CPT) selection complete Assessment & Plan Assessment & Plan (1) Cervical spondylosis: Code(s): M47.812 - Spondylosis without myelopathy or radiculopathy, cervical region Category: Medical Plan Patient is status post diagnostic bilateral L3, L4 medial branches and L5 dorsal ramus diagnostic nerve blocks. Patient tolerated procedure well and was discharged home in stable condition with discharge instructions. All questions were answered. We will follow-up via telephone or in clinic to assess response to therapy. A follow-up appointment was made during today's visit. Orders: Orders FL guidance in treatment room Today M47.817 - Spondylosis without myelopathy or radiculopathy, lumbosacral region Coding Level of Care Code Procedure Only Diagnoses Cervical spondylosis M47.812 CPT Codes Facet Injection-Lumbar/Sacral - CPT: 18807 - with Fluoroscopy ([id number]) Facet Injection-Lumbar/Sacral - CPT: 69124 - second level, with Fluoroscopy ([id number])
[2024-01-31 14:55] VITALS: BP 162/98; PULSE 99; RESP 20; O2SAT 97; BMI 32.1
[2024-01-31 14:56] VITALS: BP 140/92; PULSE 97; RESP 18; O2SAT 96
== END 2024-01-31 14:56 | disposition home or self-care (01) ==
LOC: HO.PMCPRC 13:37
PROVIDERS: PCP General Practice; Referring Provider General Practice; Visit Provider Internal Medicine
DX: M47.812 Spondylosis without myelopathy or radiculopathy, cervical region (principal)
CPT/HCPCS: 64493; 64494

== ENCOUNTER 2024-02-04 14:43 | Outpatient (AMB) | payer MEDICAID, SELFPAY ==
--- NOTE | 2024-02-04 14:43 | MHC.OFFVIS ---
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 Rodriguez. Patient reports no pain relief since procedure and states her widespread body pain, neck, shoulders, back, and hip pain has significantly increased since injections. Patient reports pain at 10/10 and states injections did not help her sleep. Patient was informed again that these injections were not intended for sustained pain relief but rather a diagnostic to confirm her axial low back pain. Patient declined a repeat diagnostic lumbar medial branch block injections in order to establish reproducible response to the treatment for potential Sprint PNS trial. Patient continued to emphasize widespread pain and that she is no longer interested in injections or interventional treatments. Denies any recent cough, cold, infection, fever, any significant changes in her medical history, medications or recent hospitalizations. Past Procedures: 01/31/24: Bilateral Diagnostic L3, L4 DR L5 MBB-0% pain relief PRIOR: Patient is a 63 years old female with prior history of chronic pain syndrome, s/p right TKR in 2020, cervix cancer, depression, fibromyalgia, migraines, neck and back pain, scoliosis, presents today for initial evaluation of widespread body pain and low back pain. Denies any past or recent trauma, injury or falls. Reports flare up in pain in arms, legs and back for the past 2 months. Reports numbness and tingling in arms and legs. Back and neck pain is axial and easily exacerbated with any movement, extension or flexion. SLR testing is negative. Patient reports she is unable to bend her right knee after right TKR, done at [facility] [place]. Pain generators are constant, rates it at 10/10. Pain affects her ADLs, mobility, sleep, mood, social interactions and quality of life. Denies any fever, weight loss, abdominal or groin pain, bowel dysfunction or saddle anesthesia. Reports self-catheterization since cervix cancer removal in 1996. Reports multiple hospitalizations and ER visits due to chronic pain. Patient requests our office to take over opioid prescribing and requests more medication as most recent dose is not providing her adequate analgesia. I have informed patient that at this time, I do not offer opioid prescribing. Per [employer] review, patient refilled script for oxycodone 5 mg #30 tabs on 12/27/23 prescribed by her PCP. Oswestry Low Back Disability Score=43 (completely disabled). Patient reports she is awaiting insurance approval for [employer] TRA[employer]ER services to help her with cleaning, bathing, cooking and laundry. She in unemployed, currently on permanent disability. Patient also reports chronic migraines, takes OTC meds and Sumatriptan prn with inadequate relief. Location: Lower back pain, widespread body pain, chronic migraines Duration: Chronic pain, worsening over the past 2 months Characteristics of symptom or complaint: Aching, burning, stabbing, sharp, tingling, numbness, hurting, tiring Aggravating or associated factors: Cold weather, movements, bending, walking, standing Relieving factors: Heat, Tylenol, duloxetine, oxycodone Treatment: Daily walking [facility] Medical History Fibromyalgia Chronic pain syndrome Neurogenic bladder, NOS Chronic kidney disease, stage 3 Hypertension Anemia Depression Cervical cancer Breast pain Back pain with right-sided radiculopathy Asthma Recurrent cellulitis of lower extremity History of cervical cancer Dyspnea on exertion HTN (hypertension) Anemia Migraines Arthritis Fibromyalgia, primary Surgical History History of right knee joint replacement H/O: hysterectomy Social History Household Members: Family Housing: House Do you presently have visiting nurse or other home services: No Alcohol intake: never Comment: refusing fall risk interventions. Patient Tobacco Use Status: Current everyday Tobacco user Tobacco use type: Cigarette Cigarette Packs Per Day: 0.4 Cigarettes Per Day: 8.0 Years Smoked: 40 e-Cigarette/Vaping Use: Never Used Second Hand Smoke Exposure: No Advance Directives Date on File: 12/05/16 service: No Current occupational status: unemployed Review of Systems Const All systems reviewed & are unremarkable except as noted in HPI and below ENT Reports Normal hearing present Neuro Reports Normal hearing present and Denies confusion Psych Denies confusion Physical Exam Const General: cooperative, alert and awake; No confusion Orientation/consciousness: patient oriented x3 and No confusion Resp Effort & Inspection: able to speak in complete sentences, no audible wheezes and no cough Neuro General: patient oriented x3 and No confusion Cranial nerves: Yes Normal hearing present Cognition (Neuro): normal cognition Psych Mental Status: mental status grossly normal Speech and movement: Clear speech present Affect: normal affect Attitude: cooperative Thought process: Normal thought process present Thought content: Normal thought content present and No Depressive thoughts present Insight: Good insight present (Psych) Judgement: Good judgement present (Psych) Telehealth Telehealth Telehealth Platform: Telephone Location of provider rendering services: practice address Location of patient: address on file Patient Identification confirmed using: Name, : Yes Telehealth method: voice only Patient verbally consented to treatment: Yes Patient verbally consented to billing insurance company: Yes Patient informed of any privacy concerns related to visit: Yes Minutes spent on Phone/Video with Pt.: 9 Results Reviewed Results Reviewed: Lumbar spine 3 views cervical spine 4 views 12/20/23 HISTORY: Atraumatic pain. COMPARISON: 08/01/2018 FINDINGS: Mild scoliosis lumbar spine convex left. Numerous clips again noted. Extent of spurring and degeneration of the disc spaces and facet joints is mildly progressive most notable at L4-L5. No spondylolysis. Cervical spine imaging demonstrates advanced degenerative disc disease throughout most notable from C3-C4 to C6-C7. Disc space narrowing and sclerosis and marginal osteophytes. No prevertebral soft tissue swelling. Lung apices clear. Posterior elements intact otherwise. IMPRESSION: Spondylosis as above. Assessment & Plan Assessment & Plan (1) Chronic pain syndrome: Code(s): G89.4 - Chronic pain syndrome Category: Medical (2) Lumbosacral spondylosis: Code(s): M47.817 - Spondylosis without myelopathy or radiculopathy, lumbosacral region Category: Medical (3) Cervical spondylosis: Code(s): M47.812 - Spondylosis without myelopathy or radiculopathy, cervical region Category: Medical (4) Fibromyalgia: Code(s): M79.7 - Fibromyalgia Category: Medical (5) Myofascial pain: Code(s): M79.18 - Myalgia, other site Category: Medical Plan Patient is status post bilateral diagnostic lumbar medial branch blocks with no pain relief. She reports exacerbation of chronic widespread pain in neck, shoulder, low back and hip areas which is consistent with her chronic fibromyalgia and myofascial pain. Patient declined a repeat diagnostic lumbar medial branch block injections in order to establish reproducible response to the treatment for potential Sprint PNS trial. Patient declined any further interventional treatments at this time. Patient was previously informed that we do not provide opioid prescribing at this time. She is encouraged daily physical activity, weight loss, well-balanced diet, adequate hydration, light exercises such as swimming, with therapy, stretching and aerobic exercise. Recommend sleep hygiene and CBT therapy. All questions and concerns have been answered. Follow-up as needed. I hereby testify that I spent 9 minutes in conversation with this patient as well as with planning and coordinating care for this patient and organizing this note. Coding Level of Care Code Tele Est Pt Level 3 (39739) Diagnoses Chronic pain syndrome G89.4 Lumbosacral spondylosis M47.817 Cervical spondylosis M47.812 Fibromyalgia M79.7 Myofascial pain M79.18
== END 2024-02-04 14:59 | disposition home or self-care (01) ==
LOC: HO.PMC 14:43
PROVIDERS: PCP General Practice; Visit Provider Nurse Practitioner Family
DX: G89.4 Chronic pain syndrome (principal); M47.817 Spondylosis without myelopathy or radiculopathy, lumbosacral region; M47.812 Spondylosis without myelopathy or radiculopathy, cervical region; M79.7 Fibromyalgia; M79.18 Myalgia, other site
CPT/HCPCS: 99213

== ENCOUNTER → 2024-02-04 14:43 | Outpatient (BNVA) | payer MEDICAID, SELFPAY | PROVIDERS: PCP General Practice; Visit Provider Nurse Practitioner Family ==

== ENCOUNTER 2024-02-08 21:22 | Inpatient (IN) | payer MEDICAID, SELFPAY ==
--- NOTE | 2024-02-08 | ECG_ITS ---
Test Reason : ?sepsis Blood Pressure : / mmHG Vent. Rate : 101 BPM Atrial Rate : 101 BPM P-R Int : 142 ms QRS Dur : 084 ms QT Int : 330 ms P-R-T Axes : 032 -14 013 degrees QTc Int : 427 ms Sinus tachycardia Possible Left atrial enlargement Minimal voltage criteria for LVH, may be normal variant ( R in aVL ) Borderline ECG When compared with ECG of 02-MAY-2022 16:17, No significant change was found Referred By: Generic ED Physician Electronically Signed By:Drew Palma
--- NOTE | ~2024-02-08 | CT_ITS ---
EXAMINATION: CT FEMUR WITH CONTRAST, RIGHT CLINICAL INFORMATION: Cellulitis. COMPARISON: None available. TECHNIQUE: Contiguous axial contrast-enhanced CT scan images of the right femur obtained after the intravenous administration of 85 mL Omnipaque 350. Sagittal and coronal reformatted images also obtained. This CT examination was performed using dose optimization techniques as appropriate, variously including the following: *Automated exposure control *Adjustment of mA and/or kV according to patient size (this includes techniques or standardized protocols for targeted exams where dose is matched to indication/reason for exam; i.e. extremities or head) *Use of iterative reconstruction technique DLP: 334 mGy-cm FINDINGS: There is apparent skin thickening throughout the right femur with mild subcutaneous infiltration/edema. No fluid collection is seen. There is no subcutaneous emphysema. The vascular structures are unremarkable. The muscular structures are unremarkable. There is mild right hip degenerative change. There is a right knee prosthesis in place. Osseous structures are otherwise unremarkable. CT/CT femur RT w IV con IMPRESSION: Apparent skin thickening throughout the right femur with mild subcutaneous infiltration/edema. No fluid collection. No subcutaneous emphysema.
--- NOTE | ~2024-02-08 | US_ITS ---
EXAMINATION: US VENOUS ULTRASOUND WITH DOPPLER LOWER EXTREMITY, RIGHT CLINICAL INFORMATION: Right leg swelling and pain. COMPARISON: None available. TECHNIQUE: Ultrasound of the deep veins is performed from the hip to the calf with compression sonography and color and pulse Doppler assessment. Spectral analysis with color-flow imaging is performed. FINDINGS: There is normal venous compression and respiratory variation and augmented flow. The visualized common femoral vein, superficial femoral vein, profunda femoral vein, popliteal vein, and the trifurcation region shows no evidence of deep venous thrombosis. There is no significant popliteal fossa cyst. If the patient's symptoms persist, followup ultrasound in 5 days 7 days might be of value to exclude proximal propagation from a non-visualized calf vein. US/US venous duplex LE RT IMPRESSION: No DVT demonstrated in the right lower extremity.
[2024-02-08 21:32] VITALS: BP 140/80; PULSE 108; O2SAT 95
[2024-02-08 21:40] VITALS: BP 124/76; PULSE 112; RESP 18; TEMP 37.6; O2SAT 100; BMI 30.9
[2024-02-08 22:36] LABS: Basophils Percent Auto 0.2 % (0-2); Hematocrit 35.3 % (37.0-47.0); Hemoglobin 11.4 g/dl (12.0-16.0); Imm Gran Abs Auto 0.07 X10*3/uL (0.00-0.03); Imm Gran Pct Auto 0.4 % (0.0-0.4); Lymphocytes Absolute Auto 1.1 X10*3/uL (1.2-4.9); Lymphocytes Percent Auto 6.5 % (20-40); MANUAL DIFF FLAG SCAN; Mean Corpuscular HGB Conc 32.3 g/dl (31.0-35.0); Mean Corpuscular Hemoglobin 25.6 pg (27.0-33.0); Mean Corpuscular Volume 79.1 fL (80.0-98.0); Mean Platelet Volume 10.6 fL (9.4-12.3); Monocytes Absolute Auto 0.4 X10*3/uL (0.1-1.2); Monocytes Percent Auto 2.2 % (2-11); Neutrophils Absolute Auto 15.8 x10*3/uL (2.0-8.3); Neutrophils Percent Auto 90.7 % (45-73); Platelet Count 214 X10*3/uL (160-400); Red Blood Count 4.46 X10*6/uL (4.20-5.50); Red Cell Distribution Width 15.4 % (11.0-16.0); SCAN SMEAR FLAG 1; White Blood Count 17.4 X10*3/uL (4.8-10.8)
[2024-02-08 22:49] LABS: Lactic Acid 1.3 mmol/L (0.5-2.0)
[2024-02-08 22:51] LABS: INTERNATIONAL NORM RATIO 1.1 (0.9-1.1); Prothrombin Time 13.8 SEC (11.1-13.3)
[2024-02-08 22:52] LABS: Appearance Urine Clear; Color Urine Dark Yellow; Glucose Urine UA Negative (Negative); Leukocyte Esterase Urine Negative (Negative); Nitrite Urine Negative (Negative); Specific Gravity - Urine >= 1.030 (1.005-1.025); Urine Blood Negative (Negative); Urine Ketones Trace mg/dL (Negative); Urine Protein Negative (Neg-Trace)
[2024-02-08 22:53] LABS: Alanine Aminotransferase 24 U/L (0-31); Albumin Level 4.1 g/dL (3.5-5.0); Alkaline Phosphatase 85 U/L (39-117); Anion Gap 13 (12-20); Aspartate Amino Transferase 24 U/L (5-31); Bilirubin Total 0.3 mg/dL (0.0-1.0); Blood Urea Nitrogen 20 mg/dL (9-16); Calcium 9.8 mg/dL (8.4-10.2); Carbon Dioxide 24 mmol/L (22-29); Chloride 105 mmol/L (96-108); Creatinine Clr Calc Pharmacy 65.6; Estimated Glomerular Filt Rate > 60; Glucose Random 96 mg/dL (60-115); Partial Thromboplastin Time 32.3 SEC (26.0-36.8); Potassium 4.5 mmol/L (3.3-5.1); Sodium 137 mmol/L (135-145); Total Protein 7.8 g/dL (6.5-8.0)
[2024-02-08 22:58] LABS: SLIDE REVIEW VERIFIED
[2024-02-08 22:59] LABS: Troponin-I High Sensitivity 3.6 ng/L (<3.5-17.0)
[2024-02-08 23:42] VITALS: BP 124/78; PULSE 91; RESP 15; TEMP 37.8; O2SAT 97
--- NOTE | 2024-02-08 23:54 | ED_ITS ---
HPI - General Adult General Chief complaint: Extremity Problem Stated complaint: R leg pain, swollen/red, headache, fever, chills Time Seen by Provider: 02/08/24 23:54 History of Present Illness HPI narrative: The patient is a 63-year-old female who has had problems with recurrent episodes of cellulitis in the right leg. She was hospitalized at [facility] in August of 2022 for an infection in the right leg leg. She was then hospitalized at this hospital in September of 2022 for a similar process. She was then hospitalized again at this hospital for another right leg cellulitis in April of 2023. The patient presents today with redness and discomfort in the right leg that started early this morning. She thinks it may have started at the ankle but she has not sure. She has redness up and down most of the right leg including the thigh and the calf. She says that this is very similar to the episodes of cellulitis she has been hospitalized for in the past. Related Data Home Medications ?Medication ?Instructions ?Recorded ?Confirmed acetaminophen 650 mg 2 tab PO Q8H PRN pain 10/11/22 06/21/23 tablet,extended release docusate sodium 100 mg capsule 1 cap PO DAILY constipation 10/11/22 06/21/23 lisinopril 40 mg tablet 1 tab PO DAILY 10/11/22 06/21/23 metoprolol succinate 25 mg 1 tab PO DAILY 10/11/22 06/21/23 tablet,extended release 24 hr nitroglycerin 0.4 mg sublingual 1 tab sublingual Q5M PRN Angina 10/11/22 06/21/23 tablet sumatriptan succinate 25 mg tablet 25 mg PO DAILY PRN Migraine 10/11/22 06/21/23 Headache celecoxib 50 mg capsule 50 mg PO DAILY 05/08/23 06/21/23 duloxetine 30 mg capsule,delayed 30 mg PO DAILY 05/08/23 06/21/23 release multivitamin-ferrous 1 tab PO DAILY 05/08/23 06/21/23 fumarate-folic acid 18 mg-400 mcg tablet (Certavite-Antioxidant) polyethylene glycol 3350 17 17 g PO DAILY 05/08/23 06/21/23 gram/dose oral powder trazodone 50 mg tablet 50 mg PO BEDTIME 05/08/23 06/21/23 white petrolatum 42 % topical 1 appl topical DAILY PRN Dry Skin 05/08/23 06/21/23 ointment Previous Rx's ?Medication ?Instructions ?Recorded albuterol sulfate 90 mcg/actuation 2 puff inhalation Q4-6H PRN 08/03/20 aerosol inhaler (ProAir HFA) shortness of breath or wheezing 30 days #8.5 grams ondansetron 4 mg disintegrating 4 mg PO Q8H PRN nausea and 10/13/22 tablet vomiting #10 tabs fluconazole 150 mg tablet 150 mg PO QWEEK #2 tabs 05/10/23 (Diflucan) penicillin V potassium 250 mg 250 mg PO BID 30 days #60 tabs 05/10/23 tablet terbinafine HCl 1 % topical cream 1 appl topical BID 14 days #30 05/10/23 grams clotrimazole 1 % topical cream 1 appl topical BID #1 g 05/24/23 oxycodone 5 mg tablet 5 mg PO Q4H PRN Pain, Mild (Pain 05/24/23 Scale 1-3) #10 tabs doxycycline hyclate 100 mg capsule 100 mg PO BID #60 caps 06/26/23 oxycodone 5 mg capsule 5 mg PO Q8H PRN pain 3 days #9 caps 12/21/23 prednisone 20 mg tablet 40 mg (2 x 20 mg) PO DAILY 5 days 12/21/23 #10 tabs gabapentin 300 mg capsule 300 mg PO BID pain 30 days #60 caps 01/14/24 magnesium glycinate 100 mg tablet 100 mg PO BID pain 30 days #60 tabs 01/14/24 riboflavin (vitamin B2) 400 mg 400 mg PO DAILY pain 30 days #30 01/14/24 tablet tabs Allergies Allergy/AdvReac Type Severity Reaction Status Date / Time buspirone [From BuSpar] Allergy Mild Tongue Verified 02/08/24 21:46 Swelling, dizziness ibuprofen [From Motrin] AdvReac Mild Rash, HTN Verified 02/08/24 21:46 Review of Systems 2 Review of Systems: Yes all other systems are reviewed and are negative PMF Past Medical History Medical History (Updated 02/09/24 @ 05:46 by Gloria Can MD) Cellulitis of right lower extremity Fibromyalgia Chronic pain syndrome Neurogenic bladder, NOS Chronic kidney disease, stage 3 Hypertension Anemia Depression Cervical cancer Breast pain Back pain with right-sided radiculopathy Asthma Recurrent cellulitis of lower extremity History of cervical cancer Dyspnea on exertion HTN (hypertension) Anemia Migraines Arthritis Fibromyalgia, primary Surgical History History of right knee joint replacement H/O: hysterectomy Social History Social History Household Members: Family Housing: House Do you presently have visiting nurse or other home services: No Alcohol intake: never Comment: refusing fall risk interventions. Patient Tobacco Use Status: Never used Tobacco Tobacco use type: Cigarette Cigarette Packs Per Day: 0.4 Cigarettes Per Day: 8.0 Years Smoked: 40 Smoked in Last 30 Days: No e-Cigarette/Vaping Use: Never Used Second Hand Smoke Exposure: No Use of substances other than those prescribed or required for medical reasons: No Advance Directives: No Advance Directives Information Provided: Yes Advance Directives Date on File: 12/05/16 Nutrition Risks: No Nutritional Risk service: No Current occupational status: unemployed Physical Exam ED Vital Signs: Vital Signs - 24 hr 02/08/24 21:40 02/08/24 23:42 02/09/24 01:13 Temperature 99.7 F 100.1 F 100 F Pulse Rate 112 H 91 88 Respiratory Rate 18 15 18 Blood Pressure 124/76 124/78 135/69 Pulse Oximetry 100 97 97 Oxygen Delivery Method Room Air Room Air Room Air 02/09/24 02:57 02/09/24 03:13 02/09/24 05:15 Temperature 100.2 F Pulse Rate 95 89 87 Respiratory Rate 15 16 16 Blood Pressure 108/61 94/56 L 122/66 Pulse Oximetry 99 99 99 Oxygen Delivery Method Room Air Room Air Room Air 02/09/24 05:20 02/09/24 06:10 Temperature 100 F Pulse Rate 84 87 Respiratory Rate 16 16 Blood Pressure 99/65 122/62 Pulse Oximetry 99 99 Oxygen Delivery Method Room Air Room Air BMI result Body Mass Index 30.9 Const Other: The patient is awake and alert. She looks mildly uncomfortable. HENMT Other: Face is symmetrical. Mucous membranes moist Eyes Other: Pupils are round equal, conjunctivae clear Neck Other: Moving her neck easily Resp Effort & Inspection: normal respiratory effort Auscultation: clear to auscultation bilaterally Cardio Rate: regular rate Rhythm: regular rhythm Heart sounds: S1 normal heart sound present and S2 normal heart sound present GI Other: Abdomen is soft and nontender Skin Other: There is diffuse erythema on the right leg of both the upper and lower portion of the leg. The foot is spared. No purulence. Neuro Other: The patient is awake and alert with a normal mental status. She has intact strength and sensation in the right foot. Extrem Other: The patient has diffuse tenderness to the right thigh in the right lower leg but no crepitus. I can put the hip and the knee through a good range of motion without difficulty. Medications Administered Generic Name Dose Route Start Last Admin Trade Name Freq PRN Reason Stop Dose Admin Acetaminophen 650 mg 02/09/24 02:47 02/09/24 09:19 Acetaminophen 325 Mg Tablet PO 650 mg Q6H PRN Administration Pain, Mild (Pain Scale 1-3) Enoxaparin Sodium 40 mg 02/09/24 04:00 02/09/24 04:06 Enoxaparin Sodium 40 Mg/0.4 Ml Syringe SUBCUT Not Given DAILY HAILEY Sodium Chloride 3 ml 02/09/24 08:00 02/09/24 09:19 0.9 % Sodium Chloride Flush 3 Ml Syringe IVFLUSH 3 ml QSHIFT HAILEY Administration Discontinued Medications Generic Name Dose Route Start Last Admin Trade Name Freq PRN Reason Stop Dose Admin Acetaminophen 975 mg 02/09/24 00:46 02/09/24 00:54 Acetaminophen 325 Mg Tablet PO 02/09/24 00:47 975 mg ONCE ONE Administration Fentanyl 50 mcg 02/09/24 05:11 02/09/24 05:24 Fentanyl Citrate/Pf 100 Mcg/2 Ml Vial IVPUSH 02/09/24 05:12 50 mcg ONCE ONE Administration Protocol Piperacillin Sod/Tazobactam 100 mls @ 200 mls/hr 02/09/24 00:02 02/09/24 00:54 Sod 4.5 gm/ Sodium Chloride IV 02/09/24 00:31 Infused ONCE ONE Infusion Vancomycin HCl 2,000 mg in 500 mls @ 250 mls/hr 02/09/24 00:03 02/09/24 04:57 Vancomycin/Ns IV 02/09/24 02:02 Infused ONCE ONE Infusion Sodium Chloride 1,000 mls @ 999 mls/hr 02/09/24 00:15 02/09/24 02:55 Ns IV 02/09/24 01:15 Infused .Q1H1M HAILEY Infusion Sodium Chloride 1,000 mls @ 999 mls/hr 02/09/24 03:15 02/09/24 05:10 Ns IV 02/09/24 04:15 Infused .Q1H1M HAILEY Infusion Sodium Chloride 1,000 mls @ 999 mls/hr 02/09/24 05:15 02/09/24 07:25 Ns IV 02/09/24 06:15 Infused .Q1H1M HAILEY Infusion Iohexol 85 ml 02/09/24 03:45 02/09/24 03:46 Iohexol 350 Mg/Ml 100 Ml Infus..Btl IV 02/09/24 03:46 85 ml ONCE ONE Administration Morphine Sulfate 4 mg 02/09/24 00:14 02/09/24 00:53 Morphine Sulfate 4 Mg/Ml Cartridge IVPUSH 02/09/24 00:15 4 mg ONCE ONE Administration Protocol Medical Decision Making Medical Decision Making [facility] Narrative: The patient presents with an impressive cellulitis of the right leg both the upper leg and lower leg. She was febrile. Blood cultures were obtained and she was started on piperacillin tazobactam and vancomycin. She was given IV fluids. Her lactate was normal. We obtained a CT scan to ensure there was no necrotizing fasciitis. The patient was admitted to the hospitalist service. Lab Data 02/09/24 05:24 02/09/24 05:24 Labs: Lab Results 02/08/24 02/08/24 02/09/24 Range/Units 22:29 22:46 05:24 WBC 17.4 H 13.4 H (4.8-10.8) X10*3/uL RBC 4.46 3.82 L (4.20-5.50) X10*6/uL Hgb 11.4 L 9.7 L (12.0-16.0) g/dl Hct 35.3 L 30.7 L (37.0-47.0) % MCV 79.1 L 80.4 (80.0-98.0) fL MCH 25.6 L 25.4 L (27.0-33.0) pg MCHC 32.3 31.6 (31.0-35.0) g/dl RDW 15.4 15.7 (11.0-16.0) % Plt Count 214 172 (160-400) X10*3/uL MPV 10.6 10.7 (9.4-12.3) fL Immature Gran % (Auto) 0.4 0.5 H (0.0-0.4) % Neut % (Auto) 90.7 H 85.0 H (45-73) % Lymph % (Auto) 6.5 L 11.5 L (20-40) % [place] % (Auto) 2.2 2.8 (2-11) % Eos % (Auto) 0.0 0.0 (0-4) % Baso % (Auto) 0.2 0.2 (0-2) % Lymph # (Auto) 1.1 L 1.5 (1.2-4.9) X10*3/uL [place] # (Auto) 0.4 0.4 (0.1-1.2) X10*3/uL Eos # (Auto) 0.0 0.0 (0.0-0.4) X10*3/uL Baso # (Auto) 0.0 0.0 (0.0-0.2) X10*3/uL Abs Immat Gran (auto) 0.07 H 0.07 H (0.00-0.03) X10*3/uL Absolute Neuts (auto) 15.8 H 11.4 H (2.0-8.3) x10*3/uL Absolute Nucleated RBC 0.000 0.000 (0.0-0.012) X10*3/uL Nucleated RBC % (auto) 0.0 0.0 (0.0-0.2) /100WBC Smear Tech's Comments VERIFIED PT 13.8 H (11.1-13.3) SEC INR 1.1 (0.9-1.1) APTT 32.3 (26.0-36.8) SEC Sodium 137 136 (135-145) mmol/L Potassium 4.5 4.2 (3.3-5.1) mmol/L Chloride 105 109 H (96-108) mmol/L Carbon Dioxide 24 20 L (22-29) mmol/L Anion Gap 13 11 L (12-20) BUN 20 H 18 H (9-16) mg/dL Creatinine 0.93 0.86 (0.5-1.4) mg/dL Estim Creat Clear Calc 65.6 71.0 Estimated GFR > 60 > 60 Random Glucose 96 86 (60-115) mg/dL Lactic Acid 1.3 (0.5-2.0) mmol/L Calcium 9.8 8.4 D (8.4-10.2) mg/dL Total Bilirubin 0.3 (0.0-1.0) mg/dL AST 24 (5-31) U/L ALT 24 (0-31) U/L Alkaline Phosphatase 85 (39-117) U/L Total Creatine Kinase 79 (26-140) U/L Troponin I High Sens 3.6 (<3.5-17.0) ng/L C-Reactive Protein 16.83 H (< or = 0.50) mg/dL Total Protein 7.8 (6.5-8.0) g/dL Albumin 4.1 (3.5-5.0) g/dL Urine Color Dark Yellow Urine Appearance Clear Urine pH 6.0 (5.0-9.0) Ur Specific [employer] >= 1.030 H (1.005-1.025) Urine Protein Negative (Neg-Trace) mg/dL Urine Glucose (UA) Negative (Negative) mg/dL Urine Ketones Trace (Negative) mg/dL Urine Blood Negative (Negative) Urine Nitrite Negative (Negative) Ur Leukocyte Esterase Negative (Negative) Critical Care Time Critical Care Time Critical Care Time: Yes Total Critical Care Time: 35 Attestation: The patient was critically ill with a high probability of imminent or life- threatening deterioration. ?I spent greater than 30 minutes of discontinuous time evaluating the patient, delivering critical care at the bedside, discussing evaluating data with consultants. ?Critical care time does not include time spent performing separately billable procedures or teaching. ?Time spent performing critical care with 35 minutes. Discharge Plan Discharge Clinical Impression: Cellulitis of right leg Patient Disposition: Admitted As Inpatient
[2024-02-09] VITALS (12 sets, daily range): BP systolic 94–168; BP diastolic 56–97; PULSE 84–100; RESP 14–18; TEMP 36.6–37.9; O2SAT 97–99
[2024-02-09] MEDS: 0.9 % Sodium Chloride 1,000 ML 999 ML IV ×3 (00:20→05:24)
[2024-02-09] MEDS: Piperacillin Sodium/Tazobactam 4.5 GM in 0.9 % Sodium Chloride 100 ML IV (00:20)
[2024-02-09 00:21] LABS: C Reactive Protein 16.83 mg/dL (< or = 0.50)
[2024-02-09] MEDS: Morphine Sulfate 4 MG/ML CARTRIDGE IVPUSH ×3 (00:53→18:26)
[2024-02-09] MEDS: vancomycin/NS 2,000 MG/500 ML PLAST..BAG 250 MG IV (00:54)
[2024-02-09] MEDS: Acetaminophen 325 MG TABLET 975 MG PO (00:54)
--- NOTE | 2024-02-09 01:08 | PC.NURSE ---
pt brought in from at 2340. vitals as documented. Dr. Sumner notified of possible sepsis. pt reports had steroid shots in back 1 wk ago; c/o increased back pain/BLE pain x 1 week. R. knee replacement 4 years ago, RLE red/swollen/warm to touch/painful. +pedal pulses. +sensation. pt also reports RLQ abd pain, last BM [employer], reports burning with urination/nausea, denies vomit/diarrhea. pt also reports she self caths herself d/t hx cervical cancer and requests ibanez if admitted. aware. ivf and abx hung per nov. vanco infusing now. pt medicated per mar for pain/fever. pt resting comfortably, axox4.
--- NOTE | 2024-02-09 03:18 | PC.NURSE ---
Dr. Sumner aware of bp. ivf infusing 1000mL normal saline 0.9% per verbal order from Dr. Sumner. vanco continues to infuse, delay d/t pt bending arm.
[2024-02-09] MEDS: iohexoL 350 MG/ML 100 ML INFUS..BTL 85 ML IV (03:46)
[2024-02-09] MEDS: fentaNYL citrate/PF 100 MCG/2 ML VIAL 50 MCG IVPUSH (05:24)
[2024-02-09 05:28] LABS: MANUAL DIFF FLAG NO
[2024-02-09 05:29] LABS: Basophils Percent Auto 0.2 % (0-2); Hematocrit 30.7 % (37.0-47.0); Hemoglobin 9.7 g/dl (12.0-16.0); Imm Gran Abs Auto 0.07 X10*3/uL (0.00-0.03); Imm Gran Pct Auto 0.5 % (0.0-0.4); Lymphocytes Absolute Auto 1.5 X10*3/uL (1.2-4.9); Lymphocytes Percent Auto 11.5 % (20-40); Mean Corpuscular HGB Conc 31.6 g/dl (31.0-35.0); Mean Corpuscular Hemoglobin 25.4 pg (27.0-33.0); Mean Corpuscular Volume 80.4 fL (80.0-98.0); Mean Platelet Volume 10.7 fL (9.4-12.3); Monocytes Absolute Auto 0.4 X10*3/uL (0.1-1.2); Monocytes Percent Auto 2.8 % (2-11); Neutrophils Absolute Auto 11.4 x10*3/uL (2.0-8.3); Platelet Count 172 X10*3/uL (160-400); Red Blood Count 3.82 X10*6/uL (4.20-5.50); Red Cell Distribution Width 15.7 % (11.0-16.0); White Blood Count 13.4 X10*3/uL (4.8-10.8)
--- NOTE | 2024-02-09 05:38 | PM.IMHP ---
History of Present Illness Date of Service: 02/09/24 Chief Complaint: Leg infection This is a 63-year-old female with pertinent history of migraine, fibromyalgia, hypertension, mood disorder, asthma not home oxygen who presents to the emergency department for evaluation of right leg swelling and pain. Patient states her symptoms started 1 day prior to presentation. She has been having right leg swelling and pain. Does have a history of right lower extremity cellulitis in the past. This was associated with redness and warmth. Patient previously discharged on p.o. doxycycline for right leg cellulitis. Also has been having associated fevers and chills. No chest discomfort, palpitations, vomiting, shortness of breath, abdominal pain, changes in urinary or bowel habits. In the emergency department, patient was found to be septic and right lower extremity concerning for cellulitis. Review of Systems Constitutional: Constitutional: Reports chills and Reports fever(s) Cardiovascular: Cardiovascular: Reports no additional cardiovascular complaints Respiratory: Respiratory: Reports no additional respiratory complaints Gastrointestinal: Gastrointestinal: Reports no additional gastrointestinal complaints Genitourinary: Genitourinary: Reports no additional female genitourinary complaints [facility] Medical History (Updated 02/09/24 @ 05:46 by Gloria Can MD) Cellulitis of right lower extremity Fibromyalgia Chronic pain syndrome Neurogenic bladder, NOS Chronic kidney disease, stage 3 Hypertension Anemia Depression Cervical cancer Breast pain Back pain with right-sided radiculopathy Asthma Recurrent cellulitis of lower extremity History of cervical cancer Dyspnea on exertion HTN (hypertension) Anemia Migraines Arthritis Fibromyalgia, primary Surgical History History of right knee joint replacement H/O: hysterectomy Social History Household Members: Family Housing: House Do you presently have visiting nurse or other home services: No Alcohol intake: never Comment: refusing fall risk interventions. Patient Tobacco Use Status: Current everyday Tobacco user Tobacco use type: Cigarette Cigarette Packs Per Day: 0.4 Cigarettes Per Day: 8.0 Years Smoked: 40 Smoked in Last 30 Days: No e-Cigarette/Vaping Use: Never Used Second Hand Smoke Exposure: No Use of substances other than those prescribed or required for medical reasons: No Advance Directives: No Advance Directives Information Provided: Yes Advance Directives Date on File: 12/05/16 service: No Current occupational status: unemployed Meds Allergies Allergy/AdvReac Type Severity Reaction Status Date / Time buspirone [From BuSpar] Allergy Mild Tongue Verified 02/08/24 21:46 Swelling, dizziness ibuprofen [From Motrin] AdvReac Mild Rash, HTN Verified 02/08/24 21:46 Active Medications: Current Medications Acetaminophen (Acetaminophen 325 Mg Tablet) 650 mg PO Q6H PRN PRN Reason: Pain, Mild (Pain Scale 1-3) Acetaminophen (Acetaminophen Supp 650 Mg Supp.Rect) 650 mg [place] Q6H PRN PRN Reason: Pain, Mild (Pain Scale 1-3) Enoxaparin Sodium (Enoxaparin Sodium 40 Mg/0.4 Ml Syringe) 40 mg SUBCUT DAILY [facility] Last Admin: 02/09/24 04:06 Dose: Not Given Sodium Chloride (Ns) 1,000 mls @ 999 mls/hr IV .Q1H1M [facility] Stop: 02/09/24 06:15 Last Admin: 02/09/24 05:24 Dose: 999 mls/hr Melatonin (Melatonin 3 Mg Tablet) 6 mg PO BEDTIME PRN PRN Reason: Insomnia Ondansetron HCl (Ondansetron Hcl 4 Mg/2 Ml Vial) 4 mg IVPUSH Q8H PRN PRN Reason: Nausea and Vomiting Pharmacy Consult (Consult Rx Vancomycin Dosing) 1 each MISCELLANE DAILY PRN PRN Reason: Consult order Sodium Chloride (0.9 % Sodium Chloride Flush 3 Ml Syringe) 3 ml IVFLUSH [facility] Home Medications ?Medication ?Instructions ?Recorded ?Confirmed ?Last Taken ?Type acetaminophen 650 mg 2 tab PO Q8H PRN pain 10/11/22 06/21/23 Unknown History tablet,extended release docusate sodium 100 mg capsule 1 cap PO DAILY constipation 10/11/22 06/21/23 Unknown History lisinopril 40 mg tablet 1 tab PO DAILY 10/11/22 06/21/23 Unknown History metoprolol succinate 25 mg 1 tab PO DAILY 10/11/22 06/21/23 Unknown History tablet,extended release 24 hr nitroglycerin 0.4 mg sublingual 1 tab sublingual Q5M PRN Angina 10/11/22 06/21/23 Unknown History tablet sumatriptan succinate 25 mg tablet 25 mg PO DAILY PRN Migraine 10/11/22 06/21/23 Unknown History Headache celecoxib 50 mg capsule 50 mg PO DAILY 05/08/23 06/21/23 Unknown History duloxetine 30 mg capsule,delayed 30 mg PO DAILY 05/08/23 06/21/23 Unknown History release multivitamin-ferrous 1 tab PO DAILY 05/08/23 06/21/23 Unknown History fumarate-folic acid 18 mg-400 mcg tablet (Certavite-Antioxidant) polyethylene glycol 3350 17 17 g PO DAILY 05/08/23 06/21/23 Unknown History gram/dose oral powder trazodone 50 mg tablet 50 mg PO BEDTIME 05/08/23 06/21/23 Unknown History white petrolatum 42 % topical 1 appl topical DAILY PRN Dry Skin 05/08/23 06/21/23 Unknown History ointment Physical Exam Vital Signs and Narrative: Vital Signs: Last Vital Signs Temp 100.2 F 02/09/24 02:57 Pulse 84 02/09/24 05:20 Resp 16 02/09/24 05:20 BP 99/65 02/09/24 05:20 Pulse Ox 99 02/09/24 05:20 O2 Del Method Room Air 02/09/24 05:20 BMI result Body Mass Index 30.9 Middle-aged female lying in bed in no distress Neck supple, no JVD Regular rate and rhythm, S1-S2 heard Regular breath sounds bilaterally, no wheezing or crackles appreciated Abdomen soft nontender, no guarding, no rigidity Patient is awake, alert and oriented to self, place, time and person ; no focal motor deficit Extremity: Right lower extremity with warmth, swelling, tenderness and erythema (as pictured below) Psych: Normal mood No pedal edema Skin: Other: Results Labs 02/09/24 05:24 02/08/24 22:29 Labs: Laboratory Results - last 24 hr 02/08/24 02/08/24 02/09/24 22:29 22:46 05:24 MCV 79.1 L 80.4 MCH 25.6 L 25.4 L MCHC 32.3 31.6 RDW 15.4 15.7 Plt Count 214 172 MPV 10.6 10.7 Immature Gran % (Auto) 0.4 0.5 H Neut % (Auto) 90.7 H 85.0 H Lymph % (Auto) 6.5 L 11.5 L [place] % (Auto) 2.2 2.8 Eos % (Auto) 0.0 0.0 Baso % (Auto) 0.2 0.2 Lymph # (Auto) 1.1 L 1.5 [place] # (Auto) 0.4 0.4 Eos # (Auto) 0.0 0.0 Baso # (Auto) 0.0 0.0 Abs Immat Gran (auto) 0.07 H 0.07 H Absolute Neuts (auto) 15.8 H 11.4 H Absolute Nucleated RBC 0.000 0.000 Nucleated RBC % (auto) 0.0 0.0 Smear Tech's Comments VERIFIED PT 13.8 H INR 1.1 APTT 32.3 Anion Gap 13 Estim Creat Clear Calc 65.6 Estimated GFR > 60 Random Glucose 96 Lactic Acid 1.3 Calcium 9.8 Total Bilirubin 0.3 AST 24 ALT 24 Alkaline Phosphatase 85 Total Creatine Kinase 79 Troponin I High Sens 3.6 C-Reactive Protein 16.83 H Total Protein 7.8 Albumin 4.1 Urine Color Dark Yellow Urine Appearance Clear Urine pH 6.0 Ur Specific [place] >= 1.030 H Urine Protein Negative Urine Glucose (UA) Negative Urine Ketones Trace Urine Blood Negative Urine Nitrite Negative Ur Leukocyte Esterase Negative Imaging Radiologist's Impressions: Impressions Femur CT 02/09/24 03:45 IMPRESSION: Apparent skin thickening throughout the right femur with mild subcutaneous infiltration/edema. No fluid collection. No subcutaneous emphysema. Assessment and Plan (1) Cellulitis of right lower extremity: Status: Acute (2) Sepsis: Status: Acute Plan This is a 63-year-old female with pertinent history of migraine, fibromyalgia, hypertension, mood disorder, asthma not home oxygen who presents to the emergency department for evaluation of right leg swelling and pain. #. Sepsis due to right lower extremity cellulitis, recurrent: Resuscitated with IV crystalloids. Will admit with empiric IV antibiotics. Lactic acid and blood culture obtained. Right lower extremity venous duplex pending #. Hypertension. Continue home antihypertensives #. Mood disorder. Continue home mood stabilizers #. Normocytic anemia. Hemoglobin above transfusion threshold #. Asthma. No exacerbation during admission. Continue home inhalers Med rec pending DVT prophylaxis: Lovenox Full code Admit as inpatient and will require two night minimum hospital stay for IV antibiotics (as above), which is not possible in a lesser acute setting. Quality Stroke Does the patient have a stroke diagnosis?: No VTE Prior VTE?: No VTE Risk Level:: Medical - moderate - high VTE Device Contraindication: Treatment Not Indicated VTE Drug Contraindication: N/A - Med Ordered
[2024-02-09 05:43] LABS: Anion Gap 11 (12-20); Blood Urea Nitrogen 18 mg/dL (9-16); Calcium 8.4 mg/dL (8.4-10.2); Carbon Dioxide 20 mmol/L (22-29); Chloride 109 mmol/L (96-108); Estimated Glomerular Filt Rate > 60; Glucose Random 86 mg/dL (60-115); Potassium 4.2 mmol/L (3.3-5.1); Sodium 136 mmol/L (135-145)
--- NOTE | 2024-02-09 06:43 | PHA.PROG ---
Admission Date/Time: February 09, 2024 06:29 Indication: Skin Weight in k.647 kg Adjusted body weight in K.479 Serum Creatinine - Last 168 Hours 02/08/24 02/09/24 22:29 05:24 Creatinine 0.93 0.86 Estimated CrCl and GFR - Last 168 Hours 02/08/24 02/09/24 22:29 05:24 Estim Creat Clear Calc 65.6 71.0 Estimated GFR > 60 > 60 Vancomycin Loading Dose: 2000 Current Vancomycin Dosing Regimen: 1000 Q12h Vancomycin Monitoring using AUC goal of 400 - 600 range with trough as surrogate marker: 560 Date and Time for next Vancomycin Level to be drawn: 02/09 @1100 Pharmacist Comments on Vancomycin Plan: getting level after only two doses due to timing of doses, want to ensure pharmacy is here to read the level Vancomycin dosing will take advantage of [employer] as a clinical decision support tool that uses Bayesian modeling to calculate individual patient's pharmacokinetic parameters and forecast the patient's drug concentration time course with the target goal AUC 24 range of 400 - 600 mg/L/hr.
--- NOTE | 2024-02-09 07:19 | HO.PM.IMPN ---
Subjective Subjective Date of Service: 02/09/24 Interval History: Seen in follow up for extensive RLE cellulitis, sepsis Interval history: Reports RLE feels hot. C/o headache Review of Systems Review of Systems: Yes all other systems are reviewed and are negative Physical Exam Vital Signs: Vital Signs: Last Vital Signs Temp 100 F 02/09/24 06:10 Pulse 87 02/09/24 06:10 Resp 16 02/09/24 06:10 BP 122/62 02/09/24 06:10 Pulse Ox 99 02/09/24 06:10 O2 Del Method Room Air 02/09/24 06:10 BMI result Body Mass Index 30.9 Constitutional - Awake and Alert, No apparent distress Eyes - PERRLA, EOMI Cardiovascular - S1S2, RRR, 1+ edema RLE Respiratory - Normal lung expansion, Normal respiratory effort, No respiratory distress, CTA bilaterally Gastrointestinal - NT / ND; +BS; No rebound or guarding Extremities - no calf tenderness bilaterally, mild swelling RLE with erythema and warmth of the entire RLE. s/p R TKA without focal swelling/effusion Skin - Warm/Dry Neurological - Alert & oriented x3 Psychological - Appropriate affect Objective Data Active Medications Acetaminophen (Acetaminophen 325 Mg Tablet) 650 mg PO Q6H PRN PRN Reason: Pain, Mild (Pain Scale 1-3) Acetaminophen (Acetaminophen Supp 650 Mg Supp.Rect) 650 mg [place] Q6H PRN PRN Reason: Pain, Mild (Pain Scale 1-3) Enoxaparin Sodium (Enoxaparin Sodium 40 Mg/0.4 Ml Syringe) 40 mg SUBCUT DAILY [facility] Last Admin: 02/09/24 04:06 Dose: Not Given Documented By: GAURI Non-Admin Reason: Patient Refused Vancomycin HCl 1,000 mg/ (Sodium Chloride) 270 mls @ 270 mls/hr IV Q12H [facility] Melatonin (Melatonin 3 Mg Tablet) 6 mg PO BEDTIME PRN PRN Reason: Insomnia Ondansetron HCl (Ondansetron Hcl 4 Mg/2 Ml Vial) 4 mg IVPUSH Q8H PRN PRN Reason: Nausea and Vomiting Pharmacy Consult (Consult Rx Vancomycin Dosing) 1 each MISCELLANE DAILY PRN PRN Reason: Consult order Sodium Chloride (0.9 % Sodium Chloride Flush 3 Ml Syringe) 3 ml IVFLUSH QSHIFT [facility] Labs 02/09/24 05:24 02/09/24 05:24 Labs: Laboratory Results - last 24 hr 02/08/24 02/08/24 02/09/24 22:29 22:46 05:24 MCV 79.1 L 80.4 MCH 25.6 L 25.4 L MCHC 32.3 31.6 RDW 15.4 15.7 Plt Count 214 172 MPV 10.6 10.7 Immature Gran % (Auto) 0.4 0.5 H Neut % (Auto) 90.7 H 85.0 H Lymph % (Auto) 6.5 L 11.5 L [place] % (Auto) 2.2 2.8 Eos % (Auto) 0.0 0.0 Baso % (Auto) 0.2 0.2 Lymph # (Auto) 1.1 L 1.5 [place] # (Auto) 0.4 0.4 Eos # (Auto) 0.0 0.0 Baso # (Auto) 0.0 0.0 Abs Immat Gran (auto) 0.07 H 0.07 H Absolute Neuts (auto) 15.8 H 11.4 H Absolute Nucleated RBC 0.000 0.000 Nucleated RBC % (auto) 0.0 0.0 Smear Tech's Comments VERIFIED PT 13.8 H INR 1.1 APTT 32.3 Anion Gap 13 11 L Estim Creat Clear Calc 65.6 71.0 Estimated GFR > 60 > 60 Random Glucose 96 86 Lactic Acid 1.3 Calcium 9.8 8.4 D Total Bilirubin 0.3 AST 24 ALT 24 Alkaline Phosphatase 85 Total Creatine Kinase 79 Troponin I High Sens 3.6 C-Reactive Protein 16.83 H Total Protein 7.8 Albumin 4.1 Urine Color Dark Yellow Urine Appearance Clear Urine pH 6.0 Ur Specific [place] >= 1.030 H Urine Protein Negative Urine Glucose (UA) Negative Urine Ketones Trace Urine Blood Negative Urine Nitrite Negative Ur Leukocyte Esterase Negative Assessment and Plan (1) Sepsis: Status: Acute (2) Cellulitis of right lower extremity: Status: Acute Plan 63-year-old female with pertinent history of migraine, fibromyalgia, hypertension, mood disorder, asthma not home oxygen admitted for extensive cellulitis RLE with sepsis #Sepsis due to right lower extremity cellulitis, recurrent -WBC trending down. Ongoing mild tachycardia 90s, elevated temp around 100. CRP 16.83 -Failed outpt abx. Continue zosyn, vanco (initiated 02/08) -check UDS -follow CBC, cultures # hypertension -continue lisinopril, metoprolol # mood disorder -continue home meds # chronic normocytic anemia -H/H above transfusion threshold # mild intermittent asthma -no acute exacerbation, albuterol p.r.n. DVT prophylaxis-Lovenox Full code Patient will require inpatient stay at least 2 midnights for IV antibiotics due to extensive right lower extremity cellulitis with sepsis involving greater than 50% of the extremity Quality Stroke Does the patient have a stroke diagnosis?: No VTE Prior VTE?: No VTE Risk Level:: Medical - moderate - high VTE Device Contraindication: Treatment Not Indicated VTE Drug Contraindication: N/A - Med Ordered
--- NOTE | 2024-02-09 08:07 | PC.NURSE ---
Pt alert and oriented, breathing even and unlabored. Pt reports right leg pain at this time. No new complaints. Requests to sleep.
[2024-02-09] MEDS: 0.9 % Sodium Chloride Flush 3 ML SYRINGE IVFLUSH ×2 (09:19→15:22)
[2024-02-09] MEDS: Acetaminophen 325 MG TABLET 650 MG PO (09:19)
--- NOTE | 2024-02-09 11:24 | PHA.MEDREC ---
Addendum entered by Andrey Padilla 02/09/24 11:35: Patient was here for an office visit on 01/13 and was written a prescription for magnesium glycinate. Claims show that the pharmacy filled citrate, will keep glycinate on home med list per office visit. Original Note: Pharmacy Consult ? Medication Reconciliation Pharmacy has completed the medication reconciliation. used claim history to verify medications. Patient was not able to verify them and said she takes whatever her [employer] CONTROL MICROBIOLOGIST gives her, I asked for a contact for her [employer] MICROBIOLOGIST and she refused.
[2024-02-09] MEDS: vancomycin HCL 1,000 MG in 0.9 % Sodium Chloride 250 ML 270 MG IV (13:52)
[2024-02-09] MEDS: Gabapentin 300 MG CAPSULE PO ×2 (15:16→20:44)
[2024-02-09] MEDS: DULoxetine HCl 60 MG CAPSULE.DR PO (15:16)
[2024-02-09 17:08] LABS: Amphetamine Screen Urine Not Detected (Not Detect); Barbiturates, Urine Not Detected (Not Detect); Benzodiazepines Screen Urine Not Detected (Not Detect); Buprenorphine Scr Not Detected (Not Detect); Cannabinoid Screen Urine Not Detected (Not Detect); Cocaine Screen Urine Not Detected (Not Detect); Fentanyl, urine Not Detected (Not Detect); Methadone Screen, Urine Not Detected (Not Detect); Opiate Screen Urine POSITIVE (Not Detect); Oxycodone Screen Urine Not Detected (Not Detect); Phencyclidine Screen Urine Not Detected (Not Detect)
--- NOTE | 2024-02-09 19:19 | PC.NURSE ---
this rn assumed care of pt, pt resting in stretcher, no acute distress noted. pt denies pain at this time. call ott within reach.
[2024-02-09] MEDS: traZODone HCL 100 MG TABLET PO (20:44)
--- NOTE | 2024-02-09 20:46 | PC.NURSE ---
pt medicated per mar, tolerated well with water.
--- NOTE | 2024-02-09 20:50 | PC.NURSE ---
pt ambulatory to bathroom with steady gait, denies pain at this time.
[2024-02-10] MEDS: vancomycin HCL 1,000 MG in 0.9 % Sodium Chloride 250 ML 270 MG IV (01:16)
[2024-02-10 06:32] VITALS: BP 127/62; PULSE 87; RESP 12; TEMP 36.3; O2SAT 99
[2024-02-10 06:51] LABS: MANUAL DIFF FLAG NO
[2024-02-10 07:05] LABS: Basophils Percent Auto 0.4 % (0-2); Eosinophils Absolute Auto 0.1 X10*3/uL (0.0-0.4); Eosinophils Percent Auto 0.5 % (0-4); Hematocrit 28.7 % (37.0-47.0); Hemoglobin 8.9 g/dl (12.0-16.0); Imm Gran Abs Auto 0.03 X10*3/uL (0.00-0.03); Imm Gran Pct Auto 0.3 % (0.0-0.4); Lymphocytes Absolute Auto 2.8 X10*3/uL (1.2-4.9); Lymphocytes Percent Auto 26.2 % (20-40); Mean Corpuscular Hemoglobin 24.5 pg (27.0-33.0); Mean Corpuscular Volume 79.1 fL (80.0-98.0); Mean Platelet Volume 11.7 fL (9.4-12.3); Monocytes Absolute Auto 0.7 X10*3/uL (0.1-1.2); Monocytes Percent Auto 6.2 % (2-11); Neutrophils Absolute Auto 7.1 x10*3/uL (2.0-8.3); Neutrophils Percent Auto 66.4 % (45-73); Platelet Count 182 X10*3/uL (160-400); Red Blood Count 3.63 X10*6/uL (4.20-5.50); Red Cell Distribution Width 15.9 % (11.0-16.0); White Blood Count 10.7 X10*3/uL (4.8-10.8)
[2024-02-10 07:12] LABS: Anion Gap 14 (12-20); Blood Urea Nitrogen 9 mg/dL (9-16); Calcium 8.8 mg/dL (8.4-10.2); Carbon Dioxide 19 mmol/L (22-29); Chloride 106 mmol/L (96-108); Creatinine Clr Calc Pharmacy 85.9; Estimated Glomerular Filt Rate > 60; Glucose Random 83 mg/dL (60-115); Potassium 3.7 mmol/L (3.3-5.1); Sodium 135 mmol/L (135-145)
--- NOTE | 2024-02-10 07:32 | P.PNIM_ITS ---
Subjective Subjective Date of Service: 02/10/24 Interval History: Seen in follow up for extensive RLE cellulitis, sepsis Interval history: Reports pain RLE, but improved. Afebrile. WBC trending down. No other complaints Review of Systems Review of Systems: Yes all other systems are reviewed and are negative Physical Exam 2 Vital Signs: Vital Signs: Last Vital Signs Temp 97.3 F 02/10/24 06:32 Pulse 87 02/10/24 06:32 Resp 12 02/10/24 06:32 BP 127/62 02/10/24 06:32 Pulse Ox 99 02/10/24 06:32 O2 Del Method Room Air 02/10/24 06:32 BMI result Body Mass Index 30.9 Constitutional - Awake and Alert, No apparent distress Eyes - PERRLA, EOMI Cardiovascular - S1S2, RRR, No edema Respiratory - Normal lung expansion, Normal respiratory effort, No respiratory distress, CTA bilaterally Extremities - no calf tenderness bilaterally, still with mild swelling RLE with erythema extending from the R ankle to groin but with improved warmth. R knee s/p TKA (2020) without focal swelling or effusion Skin - Warm/Dry Neurological - Alert & oriented x3 Psychological - Appropriate affect Objective Data Active Medications Acetaminophen (Acetaminophen 325 Mg Tablet) 650 mg PO Q6H PRN PRN Reason: Pain, Mild (Pain Scale 1-3) Last Admin: 02/09/24 09:19 Dose: 650 mg Documented By: LALA Acetaminophen (Acetaminophen Supp 650 Mg Supp.Rect) 650 mg [place] Q6H PRN PRN Reason: Pain, Mild (Pain Scale 1-3) Albuterol Sulfate (Albuterol Sulfate 90 Mcg 8 Gm Inhaler) 2 puff INHALE RQ4H PRN PRN Reason: shortness of breath or wheezing Docusate Sodium (Docusate Sodium 100 Mg Capsule) 100 mg PO DAILY [facility] Duloxetine HCl (Duloxetine Hcl 60 Mg Capsule.Dr) 60 mg PO DAILY [facility] Last Admin: 02/09/24 15:16 Dose: 60 mg Documented By: LALA Enoxaparin Sodium (Enoxaparin Sodium 40 Mg/0.4 Ml Syringe) 40 mg SUBCUT DAILY [facility] Last Admin: 02/09/24 04:06 Dose: Not Given Documented By: GAURI Non-Admin Reason: Patient Refused Gabapentin (Gabapentin 300 Mg Capsule) 300 mg PO BID [facility] Last Admin: 02/09/24 20:44 Dose: 300 mg Documented By: JERSON Vancomycin HCl 1,000 mg/ (Sodium Chloride) 270 mls @ 270 mls/hr IV Q12H [facility] Last Infusion: 02/10/24 02:16 Dose: Infused Documented By: JERSON Lisinopril (Lisinopril 40 Mg Tablet) 40 mg PO DAILY [facility]; Protocol Melatonin (Melatonin 3 Mg Tablet) 6 mg PO BEDTIME PRN PRN Reason: Insomnia Melatonin (Melatonin 3 Mg Tablet) 9 mg PO BEDTIME PRN PRN Reason: insomnia Morphine Sulfate (Morphine Sulfate 4 Mg/Ml Cartridge) 4 mg IVPUSH Q4H PRN; Protocol PRN Reason: Pain, Severe (Pain Scale 7-10) Last Admin: 02/09/24 18:26 Dose: 4 mg Documented By: LALA Multivitamins/Vitamin C (Multivitamin Tablet) 1 tab PO DAILY [facility] Ondansetron HCl (Ondansetron Hcl 4 Mg/2 Ml Vial) 4 mg IVPUSH Q8H PRN PRN Reason: Nausea and Vomiting Pharmacy Consult (Consult Rx Vancomycin Dosing) 1 each MISCELLANE DAILY PRN PRN Reason: Consult order Polyethylene Glycol (Polyethylene Glycol 3350 17 Gm Powd.Pack) 17 gm PO DAILY [facility] Last Admin: 02/09/24 15:17 Dose: Not Given Documented By: LALA Non-Admin Reason: Patient Refused Sodium Chloride (0.9 % Sodium Chloride Flush 3 Ml Syringe) 3 ml IVFLUSH QSHIFT [facility] Last Admin: 02/10/24 00:59 Dose: Not Given Documented By: JERSON Non-Admin Reason: Previously Administered Sumatriptan Succinate (Sumatriptan Succinate 25 Mg Tablet) 25 mg PO DAILY PRN PRN Reason: Migraine Headache Trazodone HCl (Trazodone Hcl 100 Mg Tablet) 100 mg PO BEDTIME [facility] Last Admin: 02/09/24 20:44 Dose: 100 mg Documented By: JERSON Labs 02/10/24 06:00 02/10/24 06:00 Labs: Laboratory Results - last 24 hr 02/09/24 02/10/24 16:38 06:00 MCV 79.1 L MCH 24.5 L MCHC 31.0 RDW 15.9 Plt Count 182 MPV 11.7 Immature Gran % (Auto) 0.3 Neut % (Auto) 66.4 Lymph % (Auto) 26.2 [place] % (Auto) 6.2 Eos % (Auto) 0.5 Baso % (Auto) 0.4 Lymph # (Auto) 2.8 [place] # (Auto) 0.7 Eos # (Auto) 0.1 Baso # (Auto) 0.0 Abs Immat Gran (auto) 0.03 Absolute Neuts (auto) 7.1 Absolute Nucleated RBC 0.000 Nucleated RBC % (auto) 0.0 Anion Gap 14 Estim Creat Clear Calc 85.9 Estimated GFR > 60 Random Glucose 83 Calcium 8.8 Urine Opiates Screen POSITIVE H Ur Buprenorphine Scrn Not Detected Ur Oxycodone Screen Not Detected Urine Methadone Screen Not Detected Urine Fentanyl Screen Not Detected Ur Barbiturates Screen Not Detected Ur Phencyclidine Scrn Not Detected Ur Amphetamines Screen Not Detected U Benzodiazepines Scrn Not Detected Urine Cocaine Screen Not Detected U Marijuana (THC) Screen Not Detected Microbiology Microbiology Results: Microbiology 02/08/24 23:19 Blood Culture - Preliminary Blood - Venous No growth after 24 hours. 02/08/24 22:29 Blood Culture - Preliminary Blood - Venous No growth after 24 hours. Assessment and Plan (1) Sepsis: Status: Acute (2) Cellulitis of right lower extremity: Status: Acute Plan 63-year-old female with pertinent history of migraine, fibromyalgia, hypertension, mood disorder, asthma not home oxygen admitted for extensive cellulitis RLE with sepsis #Sepsis due to right lower extremity cellulitis, recurrent -WBC trending down. CRP on admission 16. -Failed outpt abx. Continue zosyn, vanco (initiated 02/08) -ID consult given extensive recurrent cellulitis. Previously on prophylactic pcn in fall 2022 -s/p R TKA (2020 [facility]). Admission 2022 was evaluated by ortho who did not think knee prosthesis was at all related. Knee is without focal swelling or effusion -pain management prn with pain scale -follow CBC, cultures # hypertension -continue lisinopril, metoprolol # mood disorder -continue home meds # chronic iron deficiency anemia -H/H above transfusion threshold -initiate ferrous sulfate with vitamin c for absorption daily # mild intermittent asthma -no acute exacerbation, albuterol p.r.n. DVT prophylaxis-Lovenox Full code Patient will require ongoing for IV antibiotics due to extensive right lower extremity cellulitis with sepsis involving greater than 50% of the extremity and requiring expert consultation Quality Stroke Does the patient have a stroke diagnosis?: No VTE Prior VTE?: No VTE Risk Level:: Medical - moderate - high VTE Device Contraindication: Treatment Not Indicated VTE Drug Contraindication: N/A - Med Ordered
--- NOTE | 2024-02-10 07:34 | PC.NURSE ---
admission worksheet complete. transport notified at this time.
[2024-02-10 08:03] LABS: Iron 13 mcg/dL (30-160); Percent Iron Saturation 8 % (15-50); Total Iron Binding Capacity 169 mcg/dL (228-428); Unsaturated Iron Binding 156 ug/dL
[2024-02-10 08:17] LABS: Ferritin 657 ng/mL (10-250)
[2024-02-10] MEDS: Gabapentin 300 MG CAPSULE PO ×2 (08:19→20:24)
[2024-02-10] MEDS: DULoxetine HCl 60 MG CAPSULE.DR PO (08:19)
[2024-02-10] MEDS: lisinopriL 40 MG TABLET PO (08:19)
[2024-02-10] MEDS: Multivitamin TABLET 1 TAB PO (08:19)
[2024-02-10] MEDS: Enoxaparin Sodium 40 MG/0.4 ML SYRINGE SUBCUT (08:19)
[2024-02-10] MEDS: Morphine Sulfate 4 MG/ML CARTRIDGE IVPUSH ×3 (08:22→21:37)
[2024-02-10 08:25] VITALS: BMI 32.7
[2024-02-10] MEDS: Nicotine 7 MG PATCH.TD24 TRANSDERMA (09:05)
[2024-02-10 11:40] LABS: Vancomycin Random 11.2 mcg/mL (15-20)
[2024-02-10] MEDS: vancomycin HCL 1,000 MG in 0.9 % Sodium Chloride 250 ML 250 MG IV (12:11)
[2024-02-10] MEDS: 0.9 % Sodium Chloride Flush 3 ML SYRINGE IVFLUSH ×3 (12:11→21:40)
[2024-02-10 16:00] VITALS: BP 128/67; PULSE 73; RESP 12; TEMP 36.3; O2SAT 100
[2024-02-10 19:54] VITALS: BP 128/64; PULSE 76; RESP 20; TEMP 36.3; O2SAT 100
[2024-02-10] MEDS: traZODone HCL 100 MG TABLET PO (20:24)
[2024-02-11] MEDS: vancomycin HCL 1,000 MG in 0.9 % Sodium Chloride 250 ML 270 MG IV (00:29)
[2024-02-11] MEDS: Morphine Sulfate 4 MG/ML CARTRIDGE IVPUSH ×4 (01:42→23:46)
[2024-02-11 02:12] VITALS: RESP 18
[2024-02-11 03:35] VITALS: BP 130/67; PULSE 80; RESP 20; TEMP 36.3; O2SAT 96
[2024-02-11 05:32] LABS: MANUAL DIFF FLAG NO
[2024-02-11 05:42] LABS: Basophils Percent Auto 0.5 % (0-2); Eosinophils Absolute Auto 0.2 X10*3/uL (0.0-0.4); Eosinophils Percent Auto 2.4 % (0-4); Hematocrit 27.4 % (37.0-47.0); Hemoglobin 8.5 g/dl (12.0-16.0); Imm Gran Abs Auto 0.03 X10*3/uL (0.00-0.03); Imm Gran Pct Auto 0.4 % (0.0-0.4); Lymphocytes Absolute Auto 3.3 X10*3/uL (1.2-4.9); Lymphocytes Percent Auto 43.2 % (20-40); Mean Corpuscular Hemoglobin 24.8 pg (27.0-33.0); Mean Corpuscular Volume 79.9 fL (80.0-98.0); Mean Platelet Volume 11.2 fL (9.4-12.3); Monocytes Absolute Auto 0.6 X10*3/uL (0.1-1.2); Monocytes Percent Auto 7.6 % (2-11); Neutrophils Absolute Auto 3.5 x10*3/uL (2.0-8.3); Neutrophils Percent Auto 45.9 % (45-73); Platelet Count 177 X10*3/uL (160-400); Red Blood Count 3.43 X10*6/uL (4.20-5.50); Red Cell Distribution Width 15.8 % (11.0-16.0); White Blood Count 7.5 X10*3/uL (4.8-10.8)
[2024-02-11 05:58] LABS: Creatinine Clr Calc Pharmacy 82.6; Estimated Glomerular Filt Rate > 60
[2024-02-11 07:21] VITALS: BP 115/57; PULSE 68; RESP 12; TEMP 36; O2SAT 100
[2024-02-11] MEDS: Enoxaparin Sodium 40 MG/0.4 ML SYRINGE SUBCUT (08:01)
[2024-02-11] MEDS: Gabapentin 300 MG CAPSULE PO ×2 (08:02→21:13)
[2024-02-11] MEDS: 0.9 % Sodium Chloride Flush 3 ML SYRINGE IVFLUSH ×4 (08:02→21:14)
[2024-02-11] MEDS: Ferrous Sulfate 324 MG TABLET.DR PO (08:02)
[2024-02-11] MEDS: DULoxetine HCl 60 MG CAPSULE.DR PO (08:02)
[2024-02-11] MEDS: Multivitamin TABLET 1 TAB PO (08:02)
[2024-02-11] MEDS: lisinopriL 40 MG TABLET PO (08:02)
[2024-02-11] MEDS: Nicotine 7 MG PATCH.TD24 TRANSDERMA (08:03)
[2024-02-11] MEDS: Ascorbic Acid 250 MG TABLET PO (08:03)
--- NOTE | 2024-02-11 08:54 | MHC.CM.PN ---
PT REPORTS SHE LIVES WITH HER SISTER AND HAS 10 [employer] HOURS PER WEEK SHE SAYS SHE FEELS SHE NEEDS MORE HOURS SHE REQUIRES ASSISTANCE WITH MOST THINGS PT REPORTS HER PCP WAS SUPPOSED TO MAKE A REFERRAL FOR INCREASED [employer]RS, WELL A SHOWER CHAIR, HOWEVER IT STILL HAS NOT BEEN DONE. VM LEFT FOR PTS PCP REQUESTING SHE FOLLOW UP ON THESE REFERRAL REQUESTS PT HAS A CANE SHE USES IN THE HOME AND A WALKER FOR OUTDOORS PT DECLINES TO COMPLETE A HCP AND STATES SHE IS NOT READY FOR THAT PCP: VANNESSA MISHRA AT [facility] ([phone]) DCP: HOME WITH [employer] VIA PRIVATE TRANSPORT
--- NOTE | 2024-02-11 10:25 | HO.PM.IMPN ---
Subjective Subjective Date of Service: 02/11/24 Interval History: ertyhema improved, still very swollen, also itchy Physical Exam Vital Signs: Vital Signs: Last Vital Signs Temp 96.8 F 02/11/24 07:21 Pulse 68 02/11/24 07:21 Resp 12 02/11/24 07:21 BP 115/57 L 02/11/24 07:21 Pulse Ox 100 02/11/24 07:21 O2 Del Method Room Air 02/11/24 07:21 BMI result Body Mass Index 32.7 RLE edema without erythema Objective Data Active Medications Acetaminophen (Acetaminophen 325 Mg Tablet) 650 mg PO Q6H PRN PRN Reason: Pain, Mild (Pain Scale 1-3) Last Admin: 02/09/24 09:19 Dose: 650 mg Documented By: LALA Acetaminophen (Acetaminophen Supp 650 Mg Supp.Rect) 650 mg [place] Q6H PRN PRN Reason: Pain, Mild (Pain Scale 1-3) Albuterol Sulfate (Albuterol Sulfate 90 Mcg 8 Gm Inhaler) 2 puff INHALE RQ4H PRN PRN Reason: shortness of breath or wheezing Ascorbic Acid (Ascorbic Acid 250 Mg Tablet) 250 mg PO DAILY [facility] Last Admin: 02/11/24 08:03 Dose: 250 mg Documented By: CLAIRE Docusate Sodium (Docusate Sodium 100 Mg Capsule) 100 mg PO DAILY [facility] Last Admin: 02/11/24 08:03 Dose: Not Given Documented By: CLAIRE Non-Admin Reason: Patient Refused Duloxetine HCl (Duloxetine Hcl 60 Mg Capsule.) 60 mg PO DAILY [facility] Last Admin: 02/11/24 08:02 Dose: 60 mg Documented By: CLAIRE Enoxaparin Sodium (Enoxaparin Sodium 40 Mg/0.4 Ml Syringe) 40 mg SUBCUT DAILY [facility] Last Admin: 02/11/24 08:01 Dose: 40 mg Documented By: CLAIRE Ferrous Sulfate (Ferrous Sulfate 324 Mg Tablet.) 324 mg PO DAILY [facility] Last Admin: 02/11/24 08:02 Dose: 324 mg Documented By: CLAIRE Gabapentin (Gabapentin 300 Mg Capsule) 300 mg PO BID [facility] Last Admin: 02/11/24 08:02 Dose: 300 mg Documented By: CLAIRE Vancomycin HCl 1,000 mg/ (Sodium Chloride) 270 mls @ 270 mls/hr IV Q12H [facility] Last Infusion: 02/11/24 01:29 Dose: Infused Documented By: BRYCE Lisinopril (Lisinopril 40 Mg Tablet) 40 mg PO DAILY [facility]; Protocol Last Admin: 02/11/24 08:02 Dose: 40 mg Documented By: CLAIRE Melatonin (Melatonin 3 Mg Tablet) 6 mg PO BEDTIME PRN PRN Reason: Insomnia Melatonin (Melatonin 3 Mg Tablet) 9 mg PO BEDTIME PRN PRN Reason: insomnia Morphine Sulfate (Morphine Sulfate 4 Mg/Ml Cartridge) 4 mg IVPUSH Q4H PRN; Protocol PRN Reason: Pain, Severe (Pain Scale 7-10) Last Admin: 02/11/24 01:42 Dose: 4 mg Documented By: BRYCE Multivitamins/Vitamin C (Multivitamin Tablet) 1 tab PO DAILY [facility] Last Admin: 02/11/24 08:02 Dose: 1 tab Documented By: CLAIRE Nicotine (Nicotine 7 Mg Patch.Td24) 7 mg TRANSDERMA DAILY [facility] Last Admin: 02/11/24 08:03 Dose: 7 mg Documented By: CLAIRE Ondansetron HCl (Ondansetron Hcl 4 Mg/2 Ml Vial) 4 mg IVPUSH Q8H PRN PRN Reason: Nausea and Vomiting Pharmacy Consult (Consult Rx Vancomycin Dosing) 1 each MISCELLANE DAILY PRN PRN Reason: Consult order Polyethylene Glycol (Polyethylene Glycol 3350 17 Gm Powd.Pack) 17 gm PO DAILY [facility] Last Admin: 02/11/24 08:03 Dose: Not Given Documented By: CLAIRE Non-Admin Reason: Patient Refused Sodium Chloride (0.9 % Sodium Chloride Flush 3 Ml [facility]ringe) [facility] Last Admin: 02/11/24 08:02 Dose: 3 ml Documented By: CLAIRE Sodium Chloride (0.9 % Sodium Chloride Flush 3 Ml Syringe) [facility] Last Admin: 02/11/24 08:06 Dose: 3 ml Documented By: CLAIRE Sumatriptan Succinate (Sumatriptan Succinate 25 Mg Tablet) 25 mg PO DAILY PRN PRN Reason: Migraine Headache Trazodone HCl (Trazodone Hcl 100 Mg Tablet) 100 mg PO BEDTIME [facility] Last Admin: 02/10/24 20:24 Dose: 100 mg Documented By: BRYCE Labs 02/11/24 05:11 02/11/24 05:11 Labs: Laboratory Results - last 24 hr 02/10/24 02/11/24 11:03 05:11 MCV 79.9 L MCH 24.8 L MCHC 31.0 RDW 15.8 Plt Count 177 MPV 11.2 Immature Gran % (Auto) 0.4 Neut % (Auto) 45.9 Lymph % (Auto) 43.2 H [place] % (Auto) 7.6 Eos % (Auto) 2.4 Baso % (Auto) 0.5 Lymph # (Auto) 3.3 [place] # (Auto) 0.6 Eos # (Auto) 0.2 Baso # (Auto) 0.0 Abs Immat Gran (auto) 0.03 Absolute Neuts (auto) 3.5 Absolute Nucleated RBC 0.000 Nucleated RBC % (auto) 0.0 Estim Creat Clear Calc 82.6 Estimated GFR > 60 Random Vancomycin 11.2 L Microbiology Microbiology Results: Microbiology 02/08/24 23:19 Blood Culture - Preliminary Blood - Venous No growth after 48 hours. 02/08/24 22:29 Blood Culture - Preliminary Blood - Venous No growth after 48 hours. Assessment and Plan (1) Sepsis: Status: Acute (2) Cellulitis of right lower extremity: Status: Acute Plan 63F PMH migraine, fibromyalgia, hypertension, mood disorder, asthma presented with extensive RLE erythema and swelling Sepsis due to right lower extremity cellulitis, recurrent Failed outpt abx. Continue zosyn, vanco (initiated 02/08) ID consult given extensive recurrent cellulitis. Previously on prophylactic pcn in fall 2022 s/p R TKA (2020 [facility]). Admission 2022 was evaluated by ortho who did not think knee prosthesis was at all related. Knee is without focal swelling or effusion hypertension continue lisinopril, metoprolol chronic iron deficiency anemia H/H above transfusion threshold initiate ferrous sulfate with vitamin c for absorption daily mild intermittent asthma no acute exacerbation, albuterol p.r.n. DVT prophylaxis-Lovenox Full code reason for continued hospitalization:leg still very swollen, would continue iv abx Quality Stroke Does the patient have a stroke diagnosis?: No VTE Prior VTE?: No VTE Risk Level:: Medical - moderate - high VTE Device Contraindication: Treatment Not Indicated VTE Drug Contraindication: N/A - Med Ordered
[2024-02-11 12:01] LABS: Vancomycin Random 13.7 mcg/mL (15-20)
[2024-02-11] MEDS: vancomycin HCL 1,000 MG in 0.9 % Sodium Chloride 250 ML 250 MG IV (12:27)
[2024-02-11 15:36] VITALS: BP 128/63; PULSE 67; RESP 18; TEMP 36; O2SAT 99
[2024-02-11 19:20] VITALS: BP 114/58; PULSE 84; RESP 18; TEMP 36.1; O2SAT 100
[2024-02-11] MEDS: traZODone HCL 100 MG TABLET PO (21:13)
[2024-02-11] MEDS: Hydrocortisone 1 % Ointment 28.35 GM TUBE 1 APPL TOPICAL (21:14)
[2024-02-11] MEDS: Melatonin 3 MG TABLET 6 MG PO (23:51)
[2024-02-12] VITALS (7 sets, daily range): BP systolic 117–137; BP diastolic 57–69; PULSE 66–77; RESP 16–20; TEMP 36.1–36.6; O2SAT 98–100
[2024-02-12] MEDS: 0.9 % Sodium Chloride Flush 3 ML SYRINGE IVFLUSH ×3 (01:03→15:02)
[2024-02-12] MEDS: vancomycin HCL 1,000 MG in 0.9 % Sodium Chloride 250 ML 250 MG IV ×2 (01:03→13:35)
[2024-02-12] MEDS: Morphine Sulfate 4 MG/ML CARTRIDGE IVPUSH ×4 (03:42→18:40)
[2024-02-12 07:21] LABS: Creatinine Clr Calc Pharmacy 88.5; Estimated Glomerular Filt Rate > 60
[2024-02-12] MEDS: Enoxaparin Sodium 40 MG/0.4 ML SYRINGE SUBCUT (08:17)
[2024-02-12] MEDS: DULoxetine HCl 60 MG CAPSULE.DR PO (08:18)
[2024-02-12] MEDS: Gabapentin 300 MG CAPSULE PO ×2 (08:18→21:07)
[2024-02-12] MEDS: Multivitamin TABLET 1 TAB PO (08:18)
[2024-02-12] MEDS: Ferrous Sulfate 324 MG TABLET.DR PO (08:18)
[2024-02-12] MEDS: lisinopriL 40 MG TABLET PO (08:18)
[2024-02-12] MEDS: Ascorbic Acid 250 MG TABLET PO (08:18)
[2024-02-12] MEDS: Nicotine 7 MG PATCH.TD24 TRANSDERMA (08:19)
--- NOTE | 2024-02-12 09:13 | HO.PM.IMPN ---
Subjective Subjective Date of Service: 02/12/24 Interval History: still with rle swelling and pain Physical Exam Vital Signs: Vital Signs: Last Vital Signs Temp 98 F 02/12/24 06:46 Pulse 75 02/12/24 06:46 Resp 19 02/12/24 08:18 BP 137/69 02/12/24 08:18 Pulse Ox 99 02/12/24 06:46 O2 Del Method Room Air 02/12/24 06:46 BMI result Body Mass Index 32.7 RLE edema without erythema Objective Data Active Medications Acetaminophen (Acetaminophen 325 Mg Tablet) 650 mg PO Q6H PRN PRN Reason: Pain, Mild (Pain Scale 1-3) Last Admin: 02/09/24 09:19 Dose: 650 mg Documented By: LALA Acetaminophen (Acetaminophen Supp 650 Mg Supp.Rect) 650 mg [place] Q6H PRN PRN Reason: Pain, Mild (Pain Scale 1-3) Albuterol Sulfate (Albuterol Sulfate 90 Mcg 8 Gm Inhaler) 2 puff INHALE RQ4H PRN PRN Reason: shortness of breath or wheezing Ascorbic Acid (Ascorbic Acid 250 Mg Tablet) 250 mg PO DAILY [facility] Last Admin: 02/12/24 08:18 Dose: 250 mg Documented By: COTEMA Docusate Sodium (Docusate Sodium 100 Mg Capsule) 100 mg PO DAILY [facility] Last Admin: 02/12/24 07:31 Dose: Not Given Documented By: PAVEL Non-Admin Reason: Patient Refused Duloxetine HCl (Duloxetine Hcl 60 Mg Capsule.) 60 mg PO DAILY [facility] Last Admin: 02/12/24 08:18 Dose: 60 mg Documented By: COTEMA Enoxaparin Sodium (Enoxaparin Sodium 40 Mg/0.4 Ml Syringe) 40 mg SUBCUT DAILY [facility] Last Admin: 02/12/24 08:17 Dose: 40 mg Documented By: COTEMA Ferrous Sulfate (Ferrous Sulfate 324 Mg Tablet.) 324 mg PO DAILY [facility] Last Admin: 02/12/24 08:18 Dose: 324 mg Documented By: COTEMA Gabapentin (Gabapentin 300 Mg Capsule) 300 mg PO BID [facility] Last Admin: 02/12/24 08:18 Dose: 300 mg Documented By: OSCAREMA Hydrocortisone (Hydrocortisone 1 % Ointment 28.35 Gm Tube) 1 appl TOPICAL BID PRN; Protocol PRN Reason: Itching Last Admin: 02/11/24 21:14 Dose: 1 appl Documented By: IGNACIO Vancomycin HCl 1,000 mg/ (Sodium Chloride) 270 mls @ 270 mls/hr IV Q12H [facility] Last Infusion: 02/12/24 02:18 Dose: Infused Documented By: IGNACIO Lisinopril (Lisinopril 40 Mg Tablet) 40 mg PO DAILY [facility]; Protocol Last Admin: 02/12/24 08:18 Dose: 40 mg Documented By: COTEMA Melatonin (Melatonin 3 Mg Tablet) 6 mg PO BEDTIME PRN PRN Reason: Insomnia Last Admin: 02/11/24 23:51 Dose: 6 mg Documented By: IGNACIO Melatonin (Melatonin 3 Mg Tablet) 9 mg PO BEDTIME PRN PRN Reason: insomnia Morphine Sulfate (Morphine Sulfate 4 Mg/Ml Cartridge) 4 mg IVPUSH Q4H PRN; Protocol PRN Reason: Pain, Severe (Pain Scale 7-10) Last Admin: 02/12/24 08:18 Dose: 4 mg Documented By: PAVEL Multivitamins/Vitamin C (Multivitamin Tablet) 1 tab PO DAILY [facility] Last Admin: 02/12/24 08:18 Dose: 1 tab Documented By: PAVEL Nicotine (Nicotine 7 Mg Patch.Td24) 7 mg TRANSDERMA DAILY [facility] Last Admin: 02/12/24 08:19 Dose: 7 mg Documented By: PAVEL Ondansetron HCl (Ondansetron Hcl 4 Mg/2 Ml Vial) 4 mg IVPUSH Q8H PRN PRN Reason: Nausea and Vomiting Pharmacy Consult (Consult Rx Vancomycin Dosing) 1 each MISCELLANE DAILY PRN PRN Reason: Consult order Polyethylene Glycol (Polyethylene Glycol 3350 17 Gm Powd.Pack) 17 gm PO DAILY [facility] Last Admin: 02/12/24 07:30 Dose: Not Given Documented By: COTEMA Non-Admin Reason: Patient Refused Sodium Chloride (0.9 % Sodium Chloride Flush 3 Ml Syringe) [facility] Admin: 02/12/24 08:18 Dose: 3 ml Documented By: COTEMA Sodium Chloride (0.9 % Sodium Chloride Flush 3 Ml Syringe) [facility] Last Admin: 02/12/24 08:19 Dose: Not Given Documented By: COTEMA Non-Admin Reason: Duplicate Order Sumatriptan Succinate (Sumatriptan Succinate 25 Mg Tablet) 25 mg PO DAILY PRN PRN Reason: Migraine Headache Trazodone HCl (Trazodone Hcl 100 Mg Tablet) 100 mg PO BEDTIME [facility] Last Admin: 02/11/24 21:13 Dose: 100 mg Documented By: LYSZ Labs 02/11/24 05:11 02/12/24 05:45 Labs: Laboratory Results - last 24 hr 02/11/24 02/12/24 10:58 05:45 Estim Creat Clear Calc 88.5 Estimated GFR > 60 Random Vancomycin 13.7 L Assessment and Plan (1) Sepsis: Status: Acute (2) Cellulitis of right lower extremity: Status: Acute Plan 63F PMH migraine, fibromyalgia, hypertension, mood disorder, asthma presented with extensive RLE erythema and swelling Sepsis due to right lower extremity cellulitis, recurrent Failed outpt abx. Continue zosyn, vanco (initiated 02/08) ID consult given extensive recurrent cellulitis. Previously on prophylactic pcn in fall 2022 s/p R TKA (2020 [facility]). Admission 2022 was evaluated by ortho who did not think knee prosthesis was at all related. Knee is without focal swelling or effusion had good initial improvement, now with some persistnet edema and erythema hypertension continue lisinopril, metoprolol chronic iron deficiency anemia H/H above transfusion threshold initiate ferrous sulfate with vitamin c for absorption daily mild intermittent asthma no acute exacerbation, albuterol p.r.n. DVT prophylaxis-Lovenox Full code reason for continued hospitalization:leg still very swollen, would continue iv abx Quality Stroke Does the patient have a stroke diagnosis?: No VTE Prior VTE?: No VTE Risk Level:: Medical - moderate - high VTE Device Contraindication: Treatment Not Indicated VTE Drug Contraindication: N/A - Med Ordered
[2024-02-12 11:25] LABS: Vancomycin Random 16.9 mcg/mL (15-20)
--- NOTE | 2024-02-12 11:34 | HE.PHANOTE ---
Re: Vanco Renal function improving. Trough returned at 16.9. Continue dose of 1000 mg Q24H, with predicted AUC 452 mg/L, and predicted trough of 13.9 mg/L. Next trough 02/11 at 1100.
--- NOTE | 2024-02-12 13:00 | HO.WOUND ---
Wound Consult: Initial 63yr old?[place] [facility] - See progress notes and H&P for detailed history.? Wound consult placed for Right leg cellulitis.? Patient agreeable to assessment and photo documentation.? Right leg noted for mild erythema and swelling patient reports significant improvement. There are no open wounds noted - no topical recommendations needed at this time. will discontinue wound care consult.
--- NOTE | 2024-02-12 13:43 | P.CNID_ITS ---
History of Present Illness Data of Consult Service Date: 02/12/24 Requesting physician: Jason Person Primary Care Provider: Unknown Physician HPI Reason for consult: RLE cellulitis She presents with RLE redness and swelling coming as usual after blister formed on right lower leg. She has had this before and I saw 05/22/2023. She has tried prophylactic PCN and Doxycycline and still got cellulitis,about 1- 3 times a year. Vancomycin usually helped in past and this is slower than usual. Review of Systems 2 Review of Systems: Yes all other systems are reviewed and are negative PMFSH Past Medical History Medical History Cellulitis of right lower extremity Fibromyalgia Chronic pain syndrome Neurogenic bladder, NOS Chronic kidney disease, stage 3 Hypertension Anemia Depression Cervical cancer Breast pain Back pain with right-sided radiculopathy Asthma Recurrent cellulitis of lower extremity History of cervical cancer Dyspnea on exertion HTN (hypertension) Anemia Migraines Arthritis Fibromyalgia, primary Family History Family history: reviewed and not pertinent Surgical History Surgical History History of right knee joint replacement H/O: hysterectomy Social History Social History Household Members: Family Housing: House Do you presently have visiting nurse or other home services: Yes ([employer]) Alcohol intake: never Comment: refusing fall risk interventions. Patient Tobacco Use Status: Current everyday Tobacco user Tobacco use type: Cigarette Cigarette Packs Per Day: 0.4 Cigarettes Per Day: 8 Years Smoked: 40 Smoked in Last 30 Days: No e-Cigarette/Vaping Use: Never Used Second Hand Smoke Exposure: No Use of substances other than those prescribed or required for medical reasons: No Currently Displaying Signs/Symptoms of Drug Intoxication Withdrawal: No Do you feel safe in your current relationship?: No Current Relationship Advance Directives: No Advance Directives Information Provided: Yes Advance Directives Date on File: 12/05/16 Do you have a plan to hurt others: No Plan Recently lost weight without trying: No Nutrition Risks: No Nutritional Risk Patient : No : No Poor oral hygiene: No service: No Current occupational status: unemployed Meds Allergies Allergy/AdvReac Type Severity Reaction Status Date / Time buspirone [From BuSpar] Allergy Mild Tongue Verified 02/08/24 21:46 Swelling, dizziness ibuprofen [From Motrin] AdvReac Mild Rash, HTN Verified 02/08/24 21:46 Active Medications: Current Medications Acetaminophen (Acetaminophen 325 Mg Tablet) 650 mg PO Q6H PRN PRN Reason: Pain, Mild (Pain Scale 1-3) Last Admin: 02/09/24 09:19 Dose: 650 mg Acetaminophen (Acetaminophen Supp 650 Mg Supp.Rect) 650 mg [place] Q6H PRN PRN Reason: Pain, Mild (Pain Scale 1-3) Albuterol Sulfate (Albuterol Sulfate 90 Mcg 8 Gm Inhaler) 2 puff INHALE RQ4H PRN PRN Reason: shortness of breath or wheezing Ascorbic Acid (Ascorbic Acid 250 Mg Tablet) 250 mg PO DAILY [facility] Last Admin: 02/12/24 08:18 Dose: 250 mg Docusate Sodium (Docusate Sodium 100 Mg Capsule) 100 mg PO DAILY [facility] Last Admin: 02/12/24 07:31 Dose: Not Given Duloxetine HCl (Duloxetine Hcl 60 Mg Capsule.) 60 mg PO DAILY [facility] Last Admin: 02/12/24 08:18 Dose: 60 mg Enoxaparin Sodium (Enoxaparin Sodium 40 Mg/0.4 Ml Syringe) 40 mg SUBCUT DAILY [facility] Last Admin: 02/12/24 08:17 Dose: 40 mg Ferrous Sulfate (Ferrous Sulfate 324 Mg Tablet.Dr) 324 mg PO DAILY [facility] Last Admin: 02/12/24 08:18 Dose: 324 mg Gabapentin (Gabapentin 300 Mg Capsule) 300 mg PO BID [facility] Last Admin: 02/12/24 08:18 Dose: 300 mg Hydrocortisone (Hydrocortisone 1 % Ointment 28.35 Gm Tube) 1 appl TOPICAL BID PRN; Protocol PRN Reason: Itching Last Admin: 02/11/24 21:14 Dose: 1 appl Vancomycin HCl 1,000 mg/ (Sodium Chloride) 270 mls @ 270 mls/hr IV Q12H [facility] Last Admin: 02/12/24 13:35 Dose: 250 mls/hr Clindamycin Phosphate (Cleocin) 600 mg in 50 mls @ 100 mls/hr IV Q8H [facility] Lisinopril (Lisinopril 40 Mg Tablet) 40 mg PO DAILY [facility]; Protocol Last Admin: 02/12/24 08:18 Dose: 40 mg Melatonin (Melatonin 3 Mg Tablet) 6 mg PO BEDTIME PRN PRN Reason: Insomnia Last Admin: 02/11/24 23:51 Dose: 6 mg Melatonin (Melatonin 3 Mg Tablet) 9 mg PO BEDTIME PRN PRN Reason: insomnia Morphine Sulfate (Morphine Sulfate 4 Mg/Ml Cartridge) 4 mg IVPUSH Q4H PRN; Protocol PRN Reason: Pain, Severe (Pain Scale 7-10) Last Admin: 02/12/24 13:38 Dose: 4 mg Multivitamins/Vitamin C (Multivitamin Tablet) 1 tab PO DAILY [facility] Last Admin: 02/12/24 08:18 Dose: 1 tab Nicotine (Nicotine 7 Mg Patch.Td24) 7 mg TRANSDERMA DAILY [facility] Last Admin: 02/12/24 08:19 Dose: 7 mg Ondansetron HCl (Ondansetron Hcl 4 Mg/2 Ml Vial) 4 mg IVPUSH Q8H PRN PRN Reason: Nausea and Vomiting Pharmacy Consult (Consult Rx Vancomycin Dosing) 1 each MISCELLANE DAILY PRN PRN Reason: Consult order Polyethylene Glycol (Polyethylene Glycol 3350 17 Gm Powd.Pack) 17 gm PO DAILY [facility] Last Admin: 02/12/24 07:30 Dose: Not Given Sodium Chloride (0.9 % Sodium Chloride Flush 3 Ml Syringe) 3 ml IVFLUSH QSHIFT [facility] Last Admin: 02/12/24 08:18 Dose: 3 ml Sodium Chloride (0.9 % Sodium Chloride Flush 3 Ml Syringe) 3 ml IVFLUSH QSHIFT [facility] Last Admin: 02/12/24 08:19 Dose: Not Given Sumatriptan Succinate (Sumatriptan Succinate 25 Mg Tablet) 25 mg PO DAILY PRN PRN Reason: Migraine Headache Trazodone HCl (Trazodone Hcl 100 Mg Tablet) 100 mg PO BEDTIME [facility] Last Admin: 02/11/24 21:13 Dose: 100 mg Home Medications ?Medication ?Instructions ?Recorded ?Confirmed ?Last Taken ?Type acetaminophen 650 mg 2 tab PO Q8H PRN pain 10/11/22 02/09/24 Unknown History tablet,extended release docusate sodium 100 mg capsule 1 cap PO DAILY constipation 10/11/22 02/09/24 Unknown History lisinopril 40 mg tablet 1 tab PO DAILY 10/11/22 02/09/24 Unknown History metoprolol succinate 25 mg 1 tab PO DAILY 10/11/22 02/09/24 Unknown History tablet,extended release 24 hr sumatriptan succinate 25 mg tablet 25 mg PO DAILY PRN Migraine 10/11/22 02/09/24 Unknown History Headache celecoxib 50 mg capsule 50 mg PO DAILY 05/08/23 02/09/24 Unknown History multivitamin-ferrous 1 tab PO DAILY 05/08/23 02/09/24 Unknown History fumarate-folic acid 18 mg-400 mcg tablet (Certavite-Antioxidant) polyethylene glycol 3350 17 17 g PO DAILY 05/08/23 02/09/24 Unknown History gram/dose oral powder white petrolatum 42 % topical 1 appl topical DAILY PRN Dry Skin 05/08/23 02/09/24 Unknown History ointment duloxetine 60 mg capsule,delayed 60 mg PO QAM 02/09/24 02/09/24 Unknown History release magnesium glycinate 100 mg tablet 100 mg PO BID 02/09/24 02/09/24 Unknown History melatonin 5 mg tablet 10 mg PO BEDTIME PRN insomnia 02/09/24 02/09/24 Unknown History trazodone 100 mg tablet 100 mg PO BEDTIME 02/09/24 02/09/24 Unknown History Physical Exam 2 Vital Signs: Vital Signs: Last Vital Signs Temp 98 F 02/12/24 06:46 Pulse 75 02/12/24 06:46 Resp 18 02/12/24 13:38 BP 137/69 02/12/24 08:18 Pulse Ox 99 02/12/24 06:46 O2 Del Method Room Air 02/12/24 06:46 BMI result Body Mass Index 32.7 Const: General: cooperative HEENT: Head: Yes normal to inspection Face and sinus: Yes normal facial exam Mouth: Normal oral and palatal mucosa present Teeth and gingiva: d entition normal Eyes: General: appearance normal, both eyes and all related structures P upils: Equal, round and reactive pupils present Resp: Effort & Inspection: normal respiratory effort Cardio: Rate: regular rate Rhythm: regular rhythm GI: Palpation (GI): Soft to palpation and nontender : General: Yes no CVA tenderness Back/Spine/Pelvis: Back: no CVA tenderness Skin: General skin exam: no rashes or lesions noted Neuro: General: moves all extremities Cranial nerves: Yes Equal, round and reactive pupils present Extrem: Other: RLE erythema,no lymphadenopathy Psych: Appearance: grossly normal Results Labs 02/11/24 05:11 02/12/24 05:45 Labs: BMP 02/12/24 05:45 Creatinine 0.71 Microbiology Microbiology Results: Microbiology 02/08/24 23:19 Blood - Venous Blood Culture - Preliminary No growth after 48 hours. 02/08/24 22:29 Blood - Venous Blood Culture - Preliminary No growth after 48 hours. Assessment and Plan (1) Sepsis: Status: Acute (2) Cellulitis of right lower extremity: Status: Acute Plan SHe has possible staph or strep. There is no tinea pedis and there is minor blister lower. Would continue Vancomycin but give also IV Clindamycin 600 mg tid to help toxin production and decrease antimicrobial burden possible 3 d and then total 10 d Doxycycline 100 mg bid.
[2024-02-12] MEDS: Clindamycin Phosphate/D5W 600 MG/50 ML PIGGYBACK 100 MG IV ×2 (15:02→21:08)
[2024-02-12] MEDS: traZODone HCL 100 MG TABLET PO (21:07)
[2024-02-12] MEDS: Melatonin 3 MG TABLET 9 MG PO (21:08)
[2024-02-13] VITALS (8 sets, daily range): BP systolic 92–119; BP diastolic 52–71; PULSE 60–79; RESP 12–18; TEMP 36.1–37; O2SAT 94–99
[2024-02-13] MEDS: Morphine Sulfate 4 MG/ML CARTRIDGE IVPUSH ×5 (01:10→20:48)
[2024-02-13] MEDS: vancomycin HCL 1,000 MG in 0.9 % Sodium Chloride 250 ML 270 MG IV (01:12)
[2024-02-13] MEDS: 0.9 % Sodium Chloride Flush 3 ML SYRINGE IVFLUSH ×4 (01:26→23:30)
[2024-02-13] MEDS: Acetaminophen 325 MG TABLET 650 MG PO ×3 (02:27→23:29)
[2024-02-13] MEDS: Clindamycin Phosphate/D5W 600 MG/50 ML PIGGYBACK 100 MG IV ×3 (05:45→20:49)
[2024-02-13 07:59] LABS: Creatinine Clr Calc Pharmacy 73.9; Estimated Glomerular Filt Rate > 60
[2024-02-13] MEDS: Ascorbic Acid 250 MG TABLET PO (08:52)
[2024-02-13] MEDS: Docusate Sodium 100 MG CAPSULE PO (08:52)
[2024-02-13] MEDS: Nicotine 7 MG PATCH.TD24 TRANSDERMA (08:52)
[2024-02-13] MEDS: DULoxetine HCl 60 MG CAPSULE.DR PO (08:52)
[2024-02-13] MEDS: Enoxaparin Sodium 40 MG/0.4 ML SYRINGE SUBCUT (08:52)
[2024-02-13] MEDS: Gabapentin 300 MG CAPSULE PO ×2 (08:52→20:49)
[2024-02-13] MEDS: Ferrous Sulfate 324 MG TABLET.DR PO (08:52)
[2024-02-13] MEDS: Multivitamin TABLET 1 TAB PO (08:52)
--- NOTE | 2024-02-13 11:04 | MHC.CM.PN ---
EMR REVIEWED, PER HOSPITALIST ANTIC PT WILL REMAIN INPT FOR IV ABX AND DC HOME TOMORROW 02/13 W/RESUMPTION OF [employer] HRS, CM WILL CONT TO FOLLOW DC NEEDS.
[2024-02-13 11:13] LABS: Vancomycin Random 21.9 mcg/mL (15-20)
--- NOTE | 2024-02-13 11:26 | HE.PHANOTE ---
RE: vanco Trough on 02/12 came back at 21.9; held dose til 2300. Changed to 750mg Q12H with predicted trough of 14.1mg/L, AUC of 428mg/L. Next level to be drawn 02/13 @2100
--- NOTE | 2024-02-13 13:05 | P.PNIM_ITS ---
Subjective Subjective Date of Service: 02/13/24 Interval History: Seen and evaluated Feels better swelling and erythema decreasing no other events Physical Exam 2 Vital Signs: Vital Signs: Last Vital Signs Temp 98.6 F 02/13/24 08:00 Pulse 62 02/13/24 08:00 Resp 12 02/13/24 08:00 BP 102/56 L 02/13/24 08:56 Pulse Ox 94 02/13/24 08:00 O2 Del Method Room Air 02/13/24 08:00 BMI result Body Mass Index 32.7 Const: Other: Constitutional : Awake, interactive, not in distress Neck : Normal inspection, Supple Cardiovascular : RRR, no JVP, no lower extremity edema Respiratory : good bilateral air entry, no crackles, wheezes or rhonchi Gastrointestinal: soft, lax, Normal bowel sounds, Non tender Skin : Warm, Dry, RLE warm and swollen, no drianage noted Neurological : Alert & oriented x3, No focal deficit Objective Data Active Medications Acetaminophen (Acetaminophen 325 Mg Tablet) 650 mg PO Q6H PRN PRN Reason: Pain, Mild (Pain Scale 1-3) Last Admin: 02/13/24 02:27 Dose: 650 mg Documented By: BOB Acetaminophen (Acetaminophen Supp 650 Mg Supp.Rect) 650 mg [place] Q6H PRN PRN Reason: Pain, Mild (Pain Scale 1-3) Albuterol Sulfate (Albuterol Sulfate 90 Mcg 8 Gm Inhaler) 2 puff INHALE RQ4H PRN PRN Reason: shortness of breath or wheezing Ascorbic Acid (Ascorbic Acid 250 Mg Tablet) 250 mg PO DAILY [facility] Last Admin: 02/13/24 08:52 Dose: 250 mg Documented By: BROOK Docusate Sodium (Docusate Sodium 100 Mg Capsule) 100 mg PO DAILY [facility] Last Admin: 02/13/24 08:52 Dose: 100 mg Documented By: BROOK Duloxetine HCl (Duloxetine Hcl 60 Mg Capsule.) 60 mg PO DAILY [facility] Last Admin: 02/13/24 08:52 Dose: 60 mg Documented By: BROOK Enoxaparin Sodium (Enoxaparin Sodium 40 Mg/0.4 Ml Syringe) 40 mg SUBCUT DAILY [facility] Last Admin: 02/13/24 08:52 Dose: 40 mg Documented By: BROOK Ferrous Sulfate (Ferrous Sulfate 324 Mg Tablet.) 324 mg PO DAILY [facility] Last Admin: 02/13/24 08:52 Dose: 324 mg Documented By: BROOK Gabapentin (Gabapentin 300 Mg Capsule) 300 mg PO BID [facility] Last Admin: 02/13/24 08:52 Dose: 300 mg Documented By: BROOK Hydrocortisone (Hydrocortisone 1 % Ointment 28.35 Gm Tube) 1 appl TOPICAL BID PRN; Protocol PRN Reason: Itching Last Admin: 02/11/24 21:14 Dose: 1 appl Documented By: IGNACIO Clindamycin Phosphate (Cleocin) 600 mg in 50 mls @ 100 mls/hr IV Q8H [facility] Last Infusion: 02/13/24 06:27 Dose: Infused Documented By: BOB Vancomycin HCl 750 mg/ Sodium (Chloride) 265 mls @ 265 mls/hr IV Q12H [facility] Lisinopril (Lisinopril 40 Mg Tablet) 40 mg PO DAILY [facility]; Protocol Last Admin: 02/13/24 08:54 Dose: Not Given Documented By: BROOK Non-Admin Reason: Decreased Blood Pressure Melatonin (Melatonin 3 Mg Tablet) 6 mg PO BEDTIME PRN PRN Reason: Insomnia Last Admin: 02/11/24 23:51 Dose: 6 mg Documented By: IGNACIO Melatonin (Melatonin 3 Mg Tablet) 9 mg PO BEDTIME PRN PRN Reason: insomnia Last Admin: 02/12/24 21:08 Dose: 9 mg Documented By: COTEMA Morphine Sulfate (Morphine Sulfate 4 Mg/Ml Cartridge) 4 mg IVPUSH Q4H PRN; Protocol PRN Reason: Pain, Severe (Pain Scale 7-10) Last Admin: 02/13/24 09:49 Dose: 4 mg Documented By: BROOK Multivitamins/Vitamin C (Multivitamin Tablet) 1 tab PO DAILY [facility] Last Admin: 02/13/24 08:52 Dose: 1 tab Documented By: BROOK Nicotine (Nicotine 7 Mg Patch.Td24) 7 mg TRANSDERMA DAILY [facility] Last Admin: 02/13/24 08:52 Dose: 7 mg Documented By: BROOK Ondansetron HCl (Ondansetron Hcl 4 Mg/2 Ml Vial) 4 mg IVPUSH Q8H PRN PRN Reason: Nausea and Vomiting Pharmacy Consult (Consult Rx Vancomycin Dosing) 1 each MISCELLANE DAILY PRN PRN Reason: Consult order Polyethylene Glycol (Polyethylene Glycol 3350 17 Gm Powd.Pack) 17 gm PO DAILY [facility] Last Admin: 02/13/24 08:59 Dose: Not Given Documented By: BROOK Non-Admin Reason: Patient Refused Sodium Chloride (0.9 % Sodium Chloride Flush 3 Ml Syringe) 3 ml IVFLUSH QSHIFT [facility] Last Admin: 02/13/24 08:53 Dose: 3 ml Documented By: BROOK Sodium Chloride (0.9 % Sodium Chloride Flush 3 Ml Syringe) 3 ml IVFLUSH QSHIFT [facility] Last Admin: 02/13/24 08:53 Dose: Not Given Documented By: BROOK Non-Admin Reason: Duplicate Order Sumatriptan Succinate (Sumatriptan Succinate 25 Mg Tablet) 25 mg PO DAILY PRN PRN Reason: Migraine Headache Trazodone HCl (Trazodone Hcl 100 Mg Tablet) 100 mg PO BEDTIME [facility] Last Admin: 02/12/24 21:07 Dose: 100 mg Documented By: COTEMA Labs 02/11/24 05:11 02/13/24 Unknown Labs: Laboratory Results - last 24 hr 02/13/24 02/13/24 02/13/24 05:35 10:43 Unknown Hold Purple Top SEE NOTE Estim Creat Clear Calc 73.9 Estimated GFR > 60 Random Vancomycin 21.9 H Assessment and Plan (1) Sepsis: Status: Acute (2) Cellulitis of right lower extremity: Status: Acute Plan 63F PMH migraine, fibromyalgia, hypertension, mood disorder, asthma presented with extensive RLE erythema and swelling Sepsis due to right lower extremity cellulitis, recurrent improving Continue Vanco (initiated 02/08) and Clindamycin for 1 more day ID input appreciated had good initial improvement, now with some persistent edema and erythema follow Vanco trough hypertension continue lisinopril, metoprolol chronic iron deficiency anemia H/H above transfusion threshold initiate ferrous sulfate with vitamin c for absorption daily mild intermittent asthma no acute exacerbation, albuterol p.r.n. DVT prophylaxis-Lovenox Full code reason for continued hospitalization:leg still swollen, would continue iv abx per ID recommendations Quality Stroke Does the patient have a stroke diagnosis?: No VTE Prior VTE?: No VTE Risk Level:: Medical - moderate - high VTE Device Contraindication: Treatment Not Indicated VTE Drug Contraindication: N/A - Med Ordered
[2024-02-13] MEDS: traZODone HCL 100 MG TABLET PO (20:49)
[2024-02-13] MEDS: vancomycin HCL 750 MG in 0.9 % Sodium Chloride 250 ML 265 MG IV (23:20)
[2024-02-13] MEDS: Melatonin 3 MG TABLET 6 MG PO (23:30)
[2024-02-14 03:31] VITALS: BP 107/60; PULSE 66; RESP 16; TEMP 36.3; O2SAT 97
[2024-02-14] MEDS: Morphine Sulfate 4 MG/ML CARTRIDGE IVPUSH ×2 (04:07→09:15)
[2024-02-14] MEDS: Clindamycin Phosphate/D5W 600 MG/50 ML PIGGYBACK 100 MG IV (05:32)
[2024-02-14 05:46] LABS: Creatinine Clr Calc Pharmacy 73.9; Estimated Glomerular Filt Rate > 60
[2024-02-14 07:47] VITALS: BP 119/66; PULSE 57; RESP 16; TEMP 36.6; O2SAT 100
[2024-02-14 09:12] VITALS: BP 119/66
[2024-02-14] MEDS: Gabapentin 300 MG CAPSULE PO (09:12)
[2024-02-14] MEDS: Ferrous Sulfate 324 MG TABLET.DR PO (09:12)
[2024-02-14] MEDS: Nicotine 7 MG PATCH.TD24 TRANSDERMA (09:12)
[2024-02-14] MEDS: Multivitamin TABLET 1 TAB PO (09:12)
[2024-02-14] MEDS: DULoxetine HCl 60 MG CAPSULE.DR PO (09:12)
[2024-02-14] MEDS: 0.9 % Sodium Chloride Flush 3 ML SYRINGE IVFLUSH (09:12)
[2024-02-14] MEDS: Ascorbic Acid 250 MG TABLET PO (09:12)
[2024-02-14] MEDS: lisinopriL 40 MG TABLET PO (09:12)
[2024-02-14 09:15] VITALS: RESP 17
--- NOTE | 2024-02-14 10:26 | MHC.CM.PN ---
PT MEDICALLY CLEARED FOR DC HOME NO SERVICES AND RESUMP OF [employer], PT TO ARRANGE TRANSPORT
--- NOTE | 2024-02-14 11:02 | PM.DS ---
DS: Providers Provider Date of Service: 02/14/24 Date of admission: 02/09/24 06:29 Primary care physician: Lilly Cowart MD Consults: 02/10/24 10:31 Consult to Infectious Diseases Routine Consulting Provider: [facility] [place] [facility] [place] [facility] Reason for consultation: recurrent, extensive cellulitis RLE DS: Diagnosis Discharge Diagnosis (1) Sepsis: Status: Acute (2) Cellulitis of right lower extremity: Status: Acute DS: Summary Hospital Course Hospital Course: Admission note HPI This is a 63-year-old female with pertinent history of migraine, fibromyalgia, hypertension, mood disorder, asthma not home oxygen who presents to the emergency department for evaluation of right leg swelling and pain. Patient states her symptoms started 1 day prior to presentation. She has been having right leg swelling and pain. Does have a history of right lower extremity cellulitis in the past. This was associated with redness and warmth. Patient previously discharged on p.o. doxycycline for right leg cellulitis. Also has been having associated fevers and chills. No chest discomfort, palpitations, vomiting, shortness of breath, abdominal pain, changes in urinary or bowel habits. In the emergency department, patient was found to be septic and right lower extremity concerning for cellulitis. Hospital course Admitted for Sepsis due to right lower extremity cellulitis, recurrent which was treated with broad spectrum antibiotics of IV Vancomycin and Zosyn (initiated 02/08) with no significant improvement as blood cultures remained negative. She was evaluated by ID who recommended starting Clindamycin with good response as swelling, erythema, warmth and pain decreased. a Doppler US was done and negative for DVT. To continue 5 more days of Clindamycin on discharge per ID recommendations. Discharge plan Continue Clindamycin for 5 more days Keep leg elevated Start Iron supplement for anemia Come back to ER for any worsening swelling, erythema or fever. Time Attestation Discharge Coordination Time (in mins): 38 Quality: Safe Use of Opioids Does Pt have an Active Cancer Diagnosis on the Problem List?: No Quality: Stroke Does the patient have a stroke diagnosis?: No Physical Exam Vital Signs: Vital Signs: Last Vital Signs Temp 97.8 F 02/14/24 07:47 Pulse 57 02/14/24 07:47 Resp 17 02/14/24 09:15 BP 119/66 02/14/24 09:12 Pulse Ox 100 02/14/24 07:47 O2 Del Method Room Air 02/14/24 07:47 BMI result Body Mass Index 32.7 Const: Other: Constitutional : Awake, interactive, not in distress Neck : Normal inspection, Supple Cardiovascular : RRR, no JVP, no lower extremity edema Respiratory : good bilateral air entry, no crackles, wheezes or rhonchi Gastrointestinal: soft, lax, Normal bowel sounds, Non tender Skin : Warm, Dry, RLE mildly swollen with no warmth or tenderness, no drianage noted Neurological : Alert & oriented x3, No focal deficit DS: Data Data Completed and Pending Labs on day of discharge: Laboratory Results - last 24 hr 02/13/24 02/14/24 10:43 05:11 Hold Purple Top SEE NOTE Creatinine 0.85 Estim Creat Clear Calc 73.9 Estimated GFR > 60 Random Vancomycin 21.9 H Imaging Venous US: Radiologist's impression: ITS Impressions Femur CT 02/09/24 03:45 IMPRESSION: Apparent skin thickening throughout the right femur with mild subcutaneous infiltration/edema. No fluid collection. No subcutaneous emphysema. Venous Duplex 02/09/24 06:15 IMPRESSION: No DVT demonstrated in the right lower extremity. Discharge Plan Discharge Anticipated Discharge Date/Time: 02/14/24 10:47 Patient Disposition: Home, Self-Care Discharge Diagnosis: Cellulitis right lower extremity Referrals: Lilly Cowart MD [Primary Care Provider] - 1 Week Discharge Medications: New ferrous sulfate 324 mg (65 mg iron) Tablet,Delayed Release (Dr/Ec) 324 mg PO DAILY Qty: 90 0RF oxycodone 5 mg tablet 5 mg PO Q6H PRN (Reason: pain (scale score 7-10)) Qty: 14 0RF Rx Instructions: Partial Fill upon patient request. clindamycin HCl 300 mg capsule 300 mg PO Q6H Qty: 20 0RF Continued sumatriptan succinate 25 mg tablet 25 mg PO DAILY PRN (Reason: Migraine Headache) Rx Instructions: MRX1 2 hours later if needed docusate sodium 100 mg capsule 1 cap PO DAILY metoprolol succinate 25 mg tablet extended release 24 hr 1 tab PO DAILY lisinopril 40 mg tablet 1 tab PO DAILY acetaminophen 650 mg tablet extended release 2 tab PO Q8H PRN (Reason: pain) polyethylene glycol 3350 17 gram/dose powder 17 g PO DAILY celecoxib 50 mg capsule 50 mg PO DAILY Hold Instructions: Resume on 05/29/23. Certavite-Antioxidant 18-400 mg-mcg tablet 1 tab PO DAILY white petrolatum 42 % ointment 1 appl topical DAILY PRN (Reason: Dry Skin) trazodone 100 mg tablet 100 mg PO BEDTIME duloxetine 60 mg capsule,delayed release(DR/EC) 60 mg PO QAM melatonin 5 mg tablet 10 mg PO BEDTIME PRN (Reason: insomnia) magnesium glycinate 100 mg Tablet 100 mg PO BID albuterol sulfate [ProAir HFA] 90 mcg/actuation HFA aerosol inhaler 2 puff inhalation Q4-6H PRN (Reason: shortness of breath or wheezing) 30 Days Qty: 8.5 3RF riboflavin (vitamin B2) 400 mg tablet 400 mg PO DAILY 30 Days Qty: 30 0RF gabapentin 300 mg capsule 300 mg PO BID 30 Days Qty: 60 0RF Discharge Orders: Discharge Order (Routine); Ordered 02/14/24 Ordered By: Gala Morales Diet: Advance to usual diet Activity on Discharge: As tolerated Stand Alone Forms: Patient Portal Discharge page Print Language: French Care Plan Goals: Read below Health Concerns: Read below Plan of Treatment: Read below Assessment: Continue Clindamycin for 5 more days Keep leg elevated Start Iron supplement for anemia Come back to ER for any worsening swelling, erythema or fever.
== END 2024-02-14 12:14 | disposition home or self-care (01) | DRG 720 ==
LOC: HO.ED 02-09 05:46 → HO.EDOVER 02-09 06:30 → HO.S3 02-10 07:23
PROVIDERS: Physician Assistant; Admitting Provider Student in an Organized Health Care Education/Training Program; Emergency Provider Emergency Medicine; PCP General Practice; Visit Provider Student in an Organized Health Care Education/Training Program
DX: A41.9 Sepsis, unspecified organism (principal); L03.115 Cellulitis of right lower limb; F39 Unspecified mood [affective] disorder; J45.20 Mild intermittent asthma, uncomplicated; D50.9 Iron deficiency anemia, unspecified; M79.7 Fibromyalgia; I10 Essential (primary) hypertension; Z79.899 Other long term (current) drug therapy
CPT/HCPCS: 36415; 73701; 80048; 80053; 80202; 80307; 81003; 82550; 82565; 82728; 83540; 83605; 84484; 85025; 85610; 85730; 86140; 87040; 93005; 93971; 99285; J0736; J1650; J2270; J2543; J3010; J3370; Q9967

== ENCOUNTER → 2024-02-08 22:14 | Outpatient (BNV) | payer MEDICAID, SELFPAY | PROVIDERS: Admitting Provider Student in an Organized Health Care Education/Training Program; Emergency Provider Emergency Medicine; Visit Provider Internal Medicine Cardiovascular Disease | DX: R00.0 Tachycardia, unspecified (principal); I51.7 Cardiomegaly; R94.31 Abnormal electrocardiogram [ECG] [EKG] | CPT/HCPCS: 93010 ==

== ENCOUNTER → 2024-02-09 00:23 | Outpatient (BNV) | payer MEDICAID, SELFPAY | PROVIDERS: Emergency Provider Emergency Medicine; Visit Provider Student in an Organized Health Care Education/Training Program | DX: A41.9 Sepsis, unspecified organism (principal); L03.115 Cellulitis of right lower limb | CPT/HCPCS: 99222; 99232; 99239; 99429 ==

== ENCOUNTER → 2024-02-09 06:29 | Outpatient (BNV) | payer MEDICAID, SELFPAY | PROVIDERS: Admitting Provider Student in an Organized Health Care Education/Training Program; Emergency Provider Emergency Medicine; Visit Provider Internal Medicine | DX: A41.9 Sepsis, unspecified organism (principal); L03.115 Cellulitis of right lower limb | CPT/HCPCS: 99222 ==

== ENCOUNTER 2024-05-15 10:30 | Inpatient (IN) | payer MEDICAID, SELFPAY ==
--- NOTE | ~2024-05-15 | US_ITS ---
EXAMINATION: US TRIPLEX LOWER EXTREMITY, RIGHT CLINICAL INFORMATION: Right lower extremity edema and cellulitis with redness COMPARISON: Right lower extremity DVT study 02/09/2024 TECHNIQUE: Color-flow triplex imaging with spectral analysis and compression Doppler were performed on the right lower extremity. FINDINGS: Respiratory variation, normal compression and augmented flow are noted throughout the right lower extremity. The visualized common femoral vein, superficial femoral vein, profunda femoral vein, popliteal vein and visualized tibial venous segments show no evidence of deep venous thrombosis. The contralateral left common femoral vein appeared unremarkable. There is no Webb's cyst. US/US venous duplex LE RT IMPRESSION: No evidence of deep venous thrombosis involving the right lower extremity. Electronically signed by: Silvio Aparicio MD 05/15/2024 12:03 PM EDT
[2024-05-15 10:40] VITALS: BP 127/91; BP 138/74; PULSE 102; PULSE 99; RESP 16; TEMP 36.6; O2SAT 97; O2SAT 99; BMI 32.7
--- NOTE | 2024-05-15 10:54 | ED.SKABFB ---
HPI - Skin/Abscess/Foreign Bdy General Chief complaint: Extremity Problem Stated complaint: H/O KNEE PAIN/INF PER EMS Source: patient and old records reviewed Mode of arrival: EMS Limitations: no limitations History of Present Illness ED Provider: GELACIO BELTRAN narrative: 63 yo female with PMH of CKD, HTN, asthma, migraines, anemia, chronic recurrent RLE cellulitis - hx of R TKA with [facility] in 2001 no hx of joint infection but has had frequent bouts of RLE cellulitis who notes 3 days of R leg pain, swelling, fevers, chills and red rash. She did not take medications for this in the past. Has had this before many times. Thinks her legs is infected again. No trauma reported. MD complaint: rash Onset (ago): day(s) (3) Tetanus up to date: yes Severity: moderate Quality: aching Pain Consistency: constant Relieving factors: rest Exacerbating factors: palpation and movement Context: other (hx of recurrent cellulitis) Associated symptoms: fever and chills Treatments prior to arrival: none Related Data Home Medications ?Medication ?Instructions ?Recorded ?Confirmed acetaminophen 650 mg 2 tab PO Q8H PRN pain 10/11/22 02/09/24 tablet,extended release docusate sodium 100 mg capsule 1 cap PO DAILY constipation 10/11/22 02/09/24 lisinopril 40 mg tablet 1 tab PO DAILY 10/11/22 02/09/24 metoprolol succinate 25 mg 1 tab PO DAILY 10/11/22 02/09/24 tablet,extended release 24 hr sumatriptan succinate 25 mg tablet 25 mg PO DAILY PRN Migraine 10/11/22 02/09/24 Headache celecoxib 50 mg capsule 50 mg PO DAILY 05/08/23 02/09/24 multivitamin-ferrous 1 tab PO DAILY 05/08/23 02/09/24 fumarate-folic acid 18 mg-400 mcg tablet (Certavite-Antioxidant) polyethylene glycol 3350 17 17 g PO DAILY 05/08/23 02/09/24 gram/dose oral powder white petrolatum 42 % topical 1 appl topical DAILY PRN Dry Skin 05/08/23 02/09/24 ointment duloxetine 60 mg capsule,delayed 60 mg PO QAM 02/09/24 02/09/24 release magnesium glycinate 100 mg (as 100 mg PO BID 02/09/24 02/09/24 glycinate) tablet melatonin 5 mg tablet 10 mg PO BEDTIME PRN insomnia 02/09/24 02/09/24 trazodone 100 mg tablet 100 mg PO BEDTIME 02/09/24 02/09/24 Previous Rx's ?Medication ?Instructions ?Recorded albuterol sulfate 90 mcg/actuation 2 puff inhalation Q4-6H PRN 08/03/20 aerosol inhaler (ProAir HFA) shortness of breath or wheezing 30 days #8.5 grams gabapentin 300 mg capsule 300 mg PO BID pain 30 days #60 caps 01/14/24 riboflavin (vitamin B2) 400 mg 400 mg PO DAILY pain 30 days #30 01/14/24 tablet tabs clindamycin HCl 300 mg capsule 300 mg PO Q6H #20 caps 02/14/24 ferrous sulfate 324 mg (65 mg 324 mg PO DAILY #90 tabs 02/14/24 iron) tablet,delayed release oxycodone 5 mg tablet 5 mg PO Q6H PRN pain (scale score 02/14/24 7-10) #14 tabs Allergies Allergy/AdvReac Type Severity Reaction Status Date / Time buspirone [From BuSpar] Allergy Mild Tongue Verified 05/15/24 10:41 Swelling, dizziness ibuprofen [From Motrin] AdvReac Mild Rash, HTN Verified 05/15/24 10:41 Review of Systems Review of Systems: Constitutional : pos Fever, pos Chills ENT/Mouth : No sore throat, No Rhinorrhea Eyes: No Eye Pain, No Swelling, No Redness Cardiovascular : No Chest Pain, No SOB, pos leg edema Respiratory : No Cough, No Sputum Gastrointestinal : No Nausea, No Vomiting, No Diarrhea, No abdominal Pain Genitourinary : No Dysuria, No Hematuria Musculoskeletal : No joint pain, No Myalgias, No Joint Swelling Skin : No Skin Lesions, positive skin rash Neuro : No Weakness, No Numbness, No Headache Psych : No Anxiety, No Depression All other systems reviewed and are negative [facility] Past Medical History Attestation statement: The following information was validated with the patient. Source: old records reviewed Medical History Cellulitis of right lower extremity Fibromyalgia Chronic pain syndrome Neurogenic bladder, NOS Chronic kidney disease, stage 3 Hypertension Anemia Depression Cervical cancer Breast pain Back pain with right-sided radiculopathy Asthma Recurrent cellulitis of lower extremity History of cervical cancer Dyspnea on exertion HTN (hypertension) Anemia Migraines Arthritis Fibromyalgia, primary Surgical History History of right knee joint replacement H/O: hysterectomy Social History Social History Household Members: Family Housing: House Do you presently have visiting nurse or other home services: Yes ([facility]) Alcohol intake: never Comment: refusing fall risk interventions. Patient Tobacco Use Status: Current everyday Tobacco user Tobacco use type: Cigarette Cigarette Packs Per Day: 0.4 Cigarettes Per Day: 8 Years Smoked: 40 e-Cigarette/Vaping Use: Never Used Second Hand Smoke Exposure: No Advance Directives Date on File: 12/05/16 Do you have a plan to hurt others: No Plan service: No Current occupational status: unemployed Physical Exam Vital Signs: Vital Signs: Last Vital Signs Temp 98 F 05/15/24 10:40 Pulse 99 05/15/24 10:40 Resp 16 05/15/24 10:40 BP 138/74 05/15/24 10:40 Pulse Ox 97 05/15/24 10:40 O2 Del Method Room Air 05/15/24 10:40 BMI result Body Mass Index 32.7 Appearance: Alert. Oriented X3. No acute distress. Eyes: Pupils equal, round and reactive to light. ENT: Pharynx normal. Neck: Normal inspection. Neck supple. CVS: Normal heart rate and rhythm. Pulses normal. Respiratory: No respiratory distress. Breath sounds normal. Abdomen: Soft and nontender. Skin: Skin warm and dry. Normal skin color. Normal skin turgor. Extremities: RLE very red and hot to touch no crepitus distal NV intact, no abscess or fluctuance, redness from foot to upper thigh 1-2+ pitting edema Neuro: Oriented X 3. No motor deficit. No sensory deficit. Medications Administered Generic Name Dose Route Start Last Admin Trade Name Freq PRN Reason Stop Dose Admin Vancomycin HCl 2,000 mg in 500 mls @ 250 mls/hr 05/15/24 10:49 05/15/24 11:25 Vancomycin/Ns IV 05/15/24 12:48 250 mls/hr ONCE ONE Administration Discontinued Medications Generic Name Dose Route Start Last Admin Trade Name Freq PRN Reason Stop Dose Admin Acetaminophen 650 mg 05/15/24 10:49 05/15/24 11:00 Acetaminophen 325 Mg Tablet PO 05/15/24 10:50 650 mg ONCE ONE Administration Lactated Ringer's 1,000 mls @ 999 mls/hr 05/15/24 10:49 05/15/24 10:56 Lr IV 05/15/24 11:49 999 mls/hr .Q1H1M ONE Administration Piperacillin Sod/Tazobactam 50 mls @ 100 mls/hr 05/15/24 10:49 05/15/24 11:30 Sod 3.375 gm/ Sodium Chloride IV 05/15/24 11:18 Infused ONCE ONE Infusion Morphine Sulfate 4 mg 05/15/24 10:49 05/15/24 10:59 Morphine Sulfate 4 Mg/Ml Cartridge IVPUSH 05/15/24 10:50 4 mg ONCE ONE Administration Protocol Ondansetron HCl 4 mg 05/15/24 10:49 05/15/24 11:00 Ondansetron Hcl 4 Mg/2 Ml Vial IVPUSH 05/15/24 10:50 4 mg ONCE ONE Administration Medical Decision Making Medical Decision Making MDM Narrative: 63 yo female with PMH of CKD, HTN, asthma, migraines, anemia, chronic recurrent RLE cellulitis - hx of R TKA with [facility] in 2001 no hx of joint infection now with 3 days of fevers, chills, RLE cellulitis - at this time labs, cultures, DVT study, she is NV intact on exam, empiric zosyn and vancomycin given degree of swelling and redness will admit for IV antibiotics. There is no concern for joint involvement Differential Diagnosis Differential Diagnoses: The differential diagnosis associated with the presentation includes cellulitis, DVT Admission/Observation Consideration of admission/observation: Escalation of care including admission/observation considered admit for IV antibiotics Consult Healthcare Provider Management of the patient was discussed with: Hospitalist (will admit) Lab Data [facility] Lab Attestation statement: I reviewed the patient's lab results. 05/15/24 10:51 05/15/24 10:51 Labs: Lab Results 05/15/24 Range/Units 10:51 WBC 13.7 H (4.8-10.8) X10*3/uL RBC 4.22 D (4.20-5.50) X10*6/uL Hgb 10.7 L D (12.0-16.0) g/dl Hct 33.2 L D (37.0-47.0) % MCV 78.7 L (80.0-98.0) fL MCH 25.4 L (27.0-33.0) pg MCHC 32.2 (31.0-35.0) g/dl RDW 16.4 H (11.0-16.0) % Plt Count 220 (160-400) X10*3/uL MPV 10.6 (9.4-12.3) fL Immature Gran % (Auto) 0.4 (0.0-0.4) % Neut % (Auto) 93.2 H (45-73) % Lymph % (Auto) 4.6 L (20-40) % Mcpherson % (Auto) 1.6 L (2-11) % Eos % (Auto) 0.1 (0-4) % Baso % (Auto) 0.1 (0-2) % Lymph # (Auto) 0.6 L (1.2-4.9) X10*3/uL Mcpherson # (Auto) 0.2 (0.1-1.2) X10*3/uL Eos # (Auto) 0.0 (0.0-0.4) X10*3/uL Baso # (Auto) 0.0 (0.0-0.2) X10*3/uL Abs Immat Gran (auto) 0.05 H (0.00-0.03) X10*3/uL Absolute Neuts (auto) 12.8 H (2.0-8.3) x10*3/uL Absolute Nucleated RBC 0.000 (0.0-0.012) X10*3/uL Nucleated RBC % (auto) 0.0 (0.0-0.2) /100WBC Smear Tech's Comments VERIFIED ESR 38 H (0-20) MM/HR Sodium 139 (135-145) mmol/L Potassium 3.9 (3.3-5.1) mmol/L Chloride 107 (96-108) mmol/L Carbon Dioxide 25 (22-29) mmol/L Anion Gap 11 L (12-20) BUN 19 H (9-16) mg/dL Creatinine 0.87 (0.5-1.4) mg/dL Estim Creat Clear Calc 72.2 Estimated GFR > 60 Random Glucose 103 (60-115) mg/dL Lactic Acid 1.2 (0.5-2.0) mmol/L Calcium 10.0 D (8.4-10.2) mg/dL Total Bilirubin 0.3 (0.0-1.0) mg/dL AST 21 (5-31) U/L ALT 25 (0-31) U/L Alkaline Phosphatase 97 (39-117) U/L C-Reactive Protein 4.33 H (< or = 0.50) mg/dL Total Protein 7.6 (6.5-8.0) g/dL Albumin 4.2 (3.5-5.0) g/dL Independent Interpretation I performed an independent interpretation of an: Ultrasound (negative for DVT study) Radiology Impression Discussion of test interpretation with radiology: I have reviewed the radiologist's reading. External Record Review External record reviewed: Inpatient record Discharge Plan Discharge Clinical Impression: Cellulitis Patient Disposition: Admitted As Inpatient Prescriptions: No Action sumatriptan succinate 25 mg tablet 25 mg PO DAILY PRN (Reason: Migraine Headache) Rx Instructions: MRX1 2 hours later if needed docusate sodium 100 mg capsule 1 cap PO DAILY metoprolol succinate 25 mg tablet extended release 24 hr 1 tab PO DAILY lisinopril 40 mg tablet 1 tab PO DAILY acetaminophen 650 mg tablet extended release 2 tab PO Q8H PRN (Reason: pain) polyethylene glycol 3350 17 gram/dose powder 17 g PO DAILY celecoxib 50 mg capsule 50 mg PO DAILY Certavite-Antioxidant 18-400 mg-mcg tablet 1 tab PO DAILY white petrolatum 42 % ointment 1 appl topical DAILY PRN (Reason: Dry Skin) trazodone 100 mg tablet 100 mg PO BEDTIME duloxetine 60 mg capsule,delayed release(DR/EC) 60 mg PO QAM melatonin 5 mg tablet 10 mg PO BEDTIME PRN (Reason: insomnia) magnesium glycinate 100 mg Tablet 100 mg PO BID ferrous sulfate 324 mg (65 mg iron) Tablet,Delayed Release (Dr/Ec) 324 mg PO DAILY Qty: 90 0RF oxycodone 5 mg tablet 5 mg PO Q6H PRN (Reason: pain (scale score 7-10)) Qty: 14 0RF Rx Instructions: Partial Fill upon patient request. clindamycin HCl 300 mg capsule 300 mg PO Q6H Qty: 20 0RF albuterol sulfate [ProAir HFA] 90 mcg/actuation HFA aerosol inhaler 2 puff inhalation Q4-6H PRN (Reason: shortness of breath or wheezing) 30 Days Qty: 8.5 3RF riboflavin (vitamin B2) 400 mg tablet 400 mg PO DAILY 30 Days Qty: 30 0RF gabapentin 300 mg capsule 300 mg PO BID 30 Days Qty: 60 0RF Print Language: [place]
[2024-05-15] MEDS: Lactated Ringers 1,000 ML 999 ML IV (10:56)
[2024-05-15] MEDS: Morphine Sulfate 4 MG/ML CARTRIDGE IVPUSH ×3 (10:59→21:38)
[2024-05-15 11:00] LABS: Basophils Percent Auto 0.1 % (0-2); Eosinophils Percent Auto 0.1 % (0-4); Hematocrit 33.2 % (37.0-47.0); Hemoglobin 10.7 g/dl (12.0-16.0); Imm Gran Abs Auto 0.05 X10*3/uL (0.00-0.03); Imm Gran Pct Auto 0.4 % (0.0-0.4); Lymphocytes Absolute Auto 0.6 X10*3/uL (1.2-4.9); Lymphocytes Percent Auto 4.6 % (20-40); MANUAL DIFF FLAG SCAN; Mean Corpuscular HGB Conc 32.2 g/dl (31.0-35.0); Mean Corpuscular Hemoglobin 25.4 pg (27.0-33.0); Mean Corpuscular Volume 78.7 fL (80.0-98.0); Mean Platelet Volume 10.6 fL (9.4-12.3); Monocytes Absolute Auto 0.2 X10*3/uL (0.1-1.2); Monocytes Percent Auto 1.6 % (2-11); Neutrophils Absolute Auto 12.8 x10*3/uL (2.0-8.3); Neutrophils Percent Auto 93.2 % (45-73); Platelet Count 220 X10*3/uL (160-400); Red Blood Count 4.22 X10*6/uL (4.20-5.50); Red Cell Distribution Width 16.4 % (11.0-16.0); SCAN SMEAR FLAG 1; White Blood Count 13.7 X10*3/uL (4.8-10.8)
[2024-05-15] MEDS: ondansetron HCL 4 MG/2 ML VIAL IVPUSH (11:00)
[2024-05-15] MEDS: Acetaminophen 325 MG TABLET 650 MG PO ×3 (11:00→23:42)
[2024-05-15] MEDS: Piperacillin Sodium/Tazobactam 3.375 GM in 0.9 % Sodium Chloride 50 ML IV (11:03)
[2024-05-15 11:09] LABS: Lactic Acid 1.2 mmol/L (0.5-2.0)
[2024-05-15 11:14] LABS: Alanine Aminotransferase 25 U/L (0-31); Albumin Level 4.2 g/dL (3.5-5.0); Alkaline Phosphatase 97 U/L (39-117); Anion Gap 11 (12-20); Aspartate Amino Transferase 21 U/L (5-31); Bilirubin Total 0.3 mg/dL (0.0-1.0); Blood Urea Nitrogen 19 mg/dL (9-16); C Reactive Protein 4.33 mg/dL (< or = 0.50); Carbon Dioxide 25 mmol/L (22-29); Chloride 107 mmol/L (96-108); Creatinine Clr Calc Pharmacy 72.2; Estimated Glomerular Filt Rate > 60; Glucose Random 103 mg/dL (60-115); Potassium 3.9 mmol/L (3.3-5.1); Sodium 139 mmol/L (135-145); Total Protein 7.6 g/dL (6.5-8.0)
--- NOTE | 2024-05-15 11:14 | PC.NURSE ---
patient brought in via ems, patient right leg noted to be swollen,red and warm from hip down to foot. patient states she is unable to bend leg at baseline since surgery in 2001. IV started in left AC 20#, labs drawn and sent to lab. patient medicated per NOV. patient has bilat pedal pulses. patient is alert and oriented x4.
[2024-05-15 11:21] LABS: SLIDE REVIEW VERIFIED
[2024-05-15] MEDS: vancomycin/NS 2,000 MG/500 ML PLAST..BAG 250 MG IV (11:25)
[2024-05-15 11:45] LABS: Erythrocyte Sedimentation Rate 38 MM/HR (0-20)
[2024-05-15 12:22] VITALS: BP 151/76; PULSE 88; RESP 18; TEMP 36.7; O2SAT 100
--- NOTE | 2024-05-15 12:22 | P.HPHOSP_ITS ---
History of Present Illness Date of Service: 05/15/24 Attending physician on admission: Jaquan Walker Chief Complaint: Right leg swelling, pain, redness Pt is a 63-year-old female with a PMH significant for?HTN, mild intermittent asthma migraines, fibromyalgia, recurrent right lower extremity cellulitis, urinary retention self caths at home secondary to cervical cancer in 1996, and mood disorder who presents to the ED with?increased right lower extremity swelling, redness, and pain x3 days. Reports pain radiates upper back and to her shoulders, and rates it a 10/10. He has also had associated nausea without vomiting. Subjective fever and chills at home. Had difficulty breathing last night, was awoken multiple times sweating. No known trauma to the area. Denies chest pain/pressure, palpitations. No shortness a breath or difficulty breathing. Pt has been admitted to this hospital for similar symptoms in the past, most recently on 02/09/24, 05/20/24, 05/08/24, and 10/11/22. States recurrent episodes of cellulitis at began ever since patient right TKA with [facility] in 2001. No known history of joint infection. In the ED pt was tachycardic up to 99 and mildly hypertensive up to 151/76, vitals otherwise WNL. Labs were significant for leukocytosis of 13.7, stable microcytic anemia of 10.7/33.2, ESR 38, and CRP 4.33. Lactic acid WNL at 1.2. Venous duplex of RLE showed no evidence DVT. Pt was treated in the ED with IVF, morphine, acetaminophen, ondansetron, vanco, and Zosyn. Pt will be admitted to the hospital for treatment of right lower extremity cellulitis meeting SIRS criteria. Review of Systems 2 Review of Systems: Right lower extremity redness, swelling, and pain radiating up back to shoulders and head Subjective fever and chills Nausea, no vomiting Denies abdominal pain No chest pain/pressure, palpitations Denies shortness a breath or difficulty breathing [facility] Medical History Cellulitis of right lower extremity Fibromyalgia Chronic pain syndrome Neurogenic bladder, NOS Chronic kidney disease, stage 3 Hypertension Anemia Depression Cervical cancer Breast pain Back pain with right-sided radiculopathy Asthma Recurrent cellulitis of lower extremity History of cervical cancer Dyspnea on exertion HTN (hypertension) Anemia Migraines Arthritis Fibromyalgia, primary Surgical History History of right knee joint replacement H/O: hysterectomy Social History Household Members: Family Housing: House Do you presently have 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 Patient Tobacco Use Status: Current everyday Tobacco user Tobacco use type: Cigarette Cigarette Packs Per Day: 0.4 Cigarettes Per Day: 8 Years Smoked: 40 e-Cigarette/Vaping Use: Never Used Second Hand Smoke Exposure: No Advance Directives: No Advance Directives Information Provided: Yes Advance Directives Date on File: 12/05/16 Do you have a plan to hurt others: No Plan service: No Current occupational status: unemployed Meds Allergies Allergy/AdvReac Type Severity Reaction Status Date / Time buspirone [From BuSpar] Allergy Mild Tongue Verified 05/15/24 10:41 Swelling, dizziness ibuprofen [From Motrin] AdvReac Mild Rash, HTN Verified 05/15/24 10:41 Active Medications: Current Medications Vancomycin HCl (Vancomycin/Ns) 2,000 mg in 500 mls @ 250 mls/hr IV ONCE ONE Stop: 05/15/24 12:48 Last Admin: 05/15/24 11:25 Dose: 250 mls/hr Home Medications ?Medication ?Instructions ?Recorded ?Confirmed ?Last Taken ?Type acetaminophen 650 mg 2 tab PO Q8H PRN pain 10/11/22 02/09/24 Unknown History tablet,extended release docusate sodium 100 mg capsule 1 cap PO DAILY constipation 10/11/22 02/09/24 Unknown History lisinopril 40 mg tablet 1 tab PO DAILY 10/11/22 02/09/24 Unknown History metoprolol succinate 25 mg 1 tab PO DAILY 10/11/22 02/09/24 Unknown History tablet,extended release 24 hr sumatriptan succinate 25 mg tablet 25 mg PO DAILY PRN Migraine 10/11/22 02/09/24 Unknown History Headache celecoxib 50 mg capsule 50 mg PO DAILY 05/08/23 02/09/24 Unknown History multivitamin-ferrous 1 tab PO DAILY 05/08/23 02/09/24 Unknown History fumarate-folic acid 18 mg-400 mcg tablet (Certavite-Antioxidant) polyethylene glycol 3350 17 17 g PO DAILY 05/08/23 02/09/24 Unknown History gram/dose oral powder white petrolatum 42 % topical 1 appl topical DAILY PRN Dry Skin 05/08/23 02/09/24 Unknown History ointment duloxetine 60 mg capsule,delayed 60 mg PO QAM 02/09/24 02/09/24 Unknown History release magnesium glycinate 100 mg (as 100 mg PO BID 02/09/24 02/09/24 Unknown History glycinate) tablet melatonin 5 mg tablet 10 mg PO BEDTIME PRN insomnia 02/09/24 02/09/24 Unknown History trazodone 100 mg tablet 100 mg PO BEDTIME 02/09/24 02/09/24 Unknown History albuterol sulfate 90 mcg/actuation 2 puff inhalation Q4-6H PRN 05/15/24 Unknown History aerosol inhaler (Ventolin HFA) wheezing multivitamin-ferrous 1 tab PO QAM 05/15/24 Unknown History fumarate-folic acid 18 mg-400 mcg tablet (Tab-A-Iraj Multivitamin w-iron) Physical Exam 2 Vital Signs and Narrative: Vital Signs: Last Vital Signs Temp 98 F 05/15/24 10:40 Pulse 99 05/15/24 10:40 Resp 16 05/15/24 10:40 BP 138/74 05/15/24 10:40 Pulse Ox 97 05/15/24 10:40 O2 Del Method Room Air 05/15/24 10:40 BMI result Body Mass Index 32.7 General: AOx3, no acute distress Resp: CTA bilaterally CVS: S1, S2, RRR GI: +BS, NT, no distention Skin: Warm, dry Neuro: Cranial nerves II-XII grossly intact bilaterally. Motor grossly intact bilaterally Extremities: Right lower extremity edema and erythema extending to lower back. As pictured below Psych: Appropriate affect Results Labs 05/15/24 10:51 05/15/24 10:51 Labs: Laboratory Results - last 24 hr 05/15/24 10:51 MCV 78.7 L MCH 25.4 L MCHC 32.2 RDW 16.4 H Plt Count 220 MPV 10.6 Immature Gran % (Auto) 0.4 Neut % (Auto) 93.2 H Lymph % (Auto) 4.6 L Gates % (Auto) 1.6 L Eos % (Auto) 0.1 Baso % (Auto) 0.1 Lymph # (Auto) 0.6 L [place] # (Auto) 0.2 Eos # (Auto) 0.0 Baso # (Auto) 0.0 Abs Immat Gran (auto) 0.05 H Absolute Neuts (auto) 12.8 H Absolute Nucleated RBC 0.000 Nucleated RBC % (auto) 0.0 Smear Tech's Comments VERIFIED ESR 38 H Anion Gap 11 L Estim Creat Clear Calc 72.2 Estimated GFR > 60 Random Glucose 103 Lactic Acid 1.2 Calcium 10.0 D Total Bilirubin 0.3 AST 21 ALT 25 Alkaline Phosphatase 97 C-Reactive Protein 4.33 H Total Protein 7.6 Albumin 4.2 Imaging Radiologist's Impressions: Impressions Venous Duplex 05/15/24 11:21 IMPRESSION: No evidence of deep venous thrombosis involving the right lower extremity. Electronically signed by: Silvio Aparicio MD 05/15/2024 12:03 PM EDT RP Assessment and Plan (1) Cellulitis: Qualifiers: Laterality: right Site of cellulitis: extremity Site of cellulitis of extremity: lower extremity Qualified Code(s): L03.115 - Cellulitis of right lower limb Status: Acute Plan Pt is a 63-year-old female with a PMH significant for?HTN, mild intermittent asthma, migraines, fibromyalgia, recurrent right lower extremity cellulitis, urinary retention self caths at home secondary to cervical cancer in 1996, and mood disorder who presents to the ED with?increased right lower extremity swelling, redness, and pain x3 days. Pt will be admitted to the hospital for treatment of right lower extremity cellulitis meeting SIRS criteria. Right lower extremity cellulitis with sepsis Patient with viral LLE swelling, erythema, pain x3 days Significant hx of recurrent RLE cellulitis requiring hospitalization since right TKA in 2001 Patient meets SIRS criteria: tachycardia, leukocytosis; lactic acid WNL Patient received IVF and started on broad-spectrum antibiotics in the ED During last admission in January for similar symptoms, patient did not respond to vanc and Zosyn ID consult then suggested vanc and clindamycin which patient responded well to Will treat with vanc and clindamycin, started 05/15/2024 Supposed to be on prophylactic penicillin since fall, ran out of prescription a few months ago, consider restarting on discharge Analgesics, antiemetics Follow cultures Urinary retention Secondary to cervical cancer treatment in 1996 Self caths at home, not on a set schedule Bladder scan qshift Straight cath as necessary Microcytic anemia H&H 10.7/33.2, improved from previous Continue iron supplementation HTN Continue lisinopril Mild intermittent asthma Not in acute exacerbation Continue home inhalers Fibromyalgia Continue gabapentin Mood disorder Continue home mood stabilizers Full Code Attending:?Dr. Walker DVT Prophylaxis: Lovenox Pt will require a hospitalization of at least two nights for treatment of?right lower extremity cellulitis with sepsis that will require IV antibiotics. Given that patient is meeting sepsis criteria and will require immediate IV abx to prevent further decompensation, this can not be accomplished in a lesser acute setting. Quality Stroke Does the patient have a stroke diagnosis?: No VTE Prior VTE?: No VTE Risk Level:: Medical - moderate - high VTE Device Contraindication: Treatment Not Indicated VTE Drug Contraindication: N/A - Med Ordered
[2024-05-15] MEDS: Clindamycin Phosphate/D5W 600 MG/50 ML PIGGYBACK 100 MG IV ×2 (13:24→21:29)
--- NOTE | 2024-05-15 13:46 | PHA.PROG ---
Admission Date/Time: May 15, 2024 13:14 Indication: skin and skin structure Weight in k.4 kg Adjusted body weight in Kg: [place] body weight in Kg: Obesity Dosing Indication % IBW: BMI 32.7 Serum Creatinine - Last 168 Hours 05/15/24 10:51 Creatinine 0.87 Estimated CrCl and GFR - Last 168 Hours 05/15/24 10:51 Estim Creat Clear Calc 72.2 Estimated GFR > 60 Vancomycin Loading Dose: 2000 x1 Current Vancomycin Dosing Regimen: 1750mg Q24H Vancomycin Monitoring using AUC goal of 400 - 600 range with trough as surrogate marker: 473 Date and Time for next Vancomycin Level to be drawn: 05/17/24 @1000 Pharmacist Comments on Vancomycin Plan: renal function is relatively stable for patient, dosing 1750 Q24h, predicted trough 12.7 Vancomycin dosing will take advantage of [employer] as a clinical decision support tool that uses Bayesian modeling to calculate individual patient's pharmacokinetic parameters and forecast the patient's drug concentration time course with the target goal AUC 24 range of 400 - 600 mg/L/hr.
--- NOTE | 2024-05-15 14:25 | PHA.MEDREC ---
Addendum entered by Dottie Power RPh 05/15/24 19:45: med rec reviewed by pharmacist Addendum entered by Saray Edmonds 05/15/24 19:37: Tried speaking to patient at a few differnt times tonight and every time patient was sleeping and not able to arise when I came in. Morning staff called [facility] and confirmed last 3 months. I utilized the list from the pharmacy to complete med rec. Addendum entered by Maria Esther Dahl 05/15/24 14:32: Tried calling patient contact with no answer left message. Original Note: Pharmacy Consult ? Medication Reconciliation Pharmacy has completed the medication reconciliation. Tried to spake to patient to confirm med list. patient states she doesn't want to speak with anyone because she is in to much pain. Patient said whatever you have on your list I take! So, utilized claims to confirm what I can. Called [facility] pharmacy to verify.
[2024-05-15 14:31] VITALS: BP 151/67; PULSE 102; RESP 20; O2SAT 99
[2024-05-15] MEDS: polyethylene glycoL 3350 17 GM POWD.PACK PO (14:56)
[2024-05-15] MEDS: Enoxaparin Sodium 40 MG/0.4 ML SYRINGE SUBCUT (14:56)
[2024-05-15 17:21] VITALS: BP 177/91; PULSE 123; RESP 30; TEMP 39.6; O2SAT 93
--- NOTE | 2024-05-15 17:29 | PC.NURSE ---
patient noted to be febrile and tachycardic. medicated per MAR with PO tylenol.
--- NOTE | 2024-05-15 18:07 | PC.NURSE ---
straight cath done by this RN- patient self caths at home. 400 cc urine output
[2024-05-15 19:32] VITALS: BP 130/62; PULSE 102; RESP 20; TEMP 38.2; O2SAT 94
[2024-05-15] MEDS: Docusate Sodium 100 MG CAPSULE PO (21:29)
[2024-05-15] MEDS: 0.9 % Sodium Chloride Flush 3 ML SYRINGE IVFLUSH (21:29)
[2024-05-16] VITALS (9 sets, daily range): BP systolic 113–157; BP diastolic 66–85; PULSE 75–122; RESP 16–24; TEMP 35.5–39.5; O2SAT 93–98
[2024-05-16 00:20] LABS: Lactic Acid 0.7 mmol/L (0.5-2.0)
--- NOTE | 2024-05-16 02:18 | PC.NURSE ---
Addendum entered by Mary Ann Carmichael RN 05/16/24 03:54: At 340 pt had vomited small amount after drinking cranberry juice, prn Zofran IV given. 15 mins after pt c/o midsternal chest pain, burning sensation from epig to mid sternal, vitals are WNL, Tums given, Dr. Can was notified, agreed with tums and no need for EKG. Original Note: Pt came from ED at shift change per stretcher to rm 353, alert and oriented, pt verbalized feeling weak and ill, right leg noted with warmth, redness and tenderness,right leg elevated with a pillow, cardiac tele at ST 102, feverish at 100.2. At 2130, Pt verbalized need to be straigth cath,pt do self cath at home, feeling full bladder and distention, Bladder scan = 225 ml, straight cath done aseptically with 200 ml output concentrated dark yellow with sediments, pt felt relief after. At 12mn, pt had temp= 103.1 orally, HR went to 120s sustaining, rest of Vitals WNL, offered cold packs but refused, prn Tylenol 650 mg po given, Dr. Can was updated, Lactic acid ordered and drawn, result was relayed to . rechecked temp after= 100.5 oral, HR went down to 116.
[2024-05-16] MEDS: Morphine Sulfate 4 MG/ML CARTRIDGE IVPUSH ×4 (02:43→18:27)
[2024-05-16] MEDS: ondansetron HCL 4 MG/2 ML VIAL IVPUSH (03:25)
[2024-05-16] MEDS: Calcium Carbonate 750 MG TAB.CHEW PO (03:51)
[2024-05-16] MEDS: Clindamycin Phosphate/D5W 600 MG/50 ML PIGGYBACK 100 MG IV ×3 (05:06→21:22)
[2024-05-16 05:33] LABS: Appearance Urine Clear; Color Urine Yellow; Glucose Urine UA Negative (Negative); Leukocyte Esterase Urine Negative (Negative); Nitrite Urine Negative (Negative); Urine Blood Negative (Negative); Urine Ketones Trace mg/dL (Negative); Urine Protein Trace mg/dL (Neg-Trace)
[2024-05-16 07:26] LABS: Hematocrit 30.7 % (37.0-47.0); Hemoglobin 9.5 g/dl (12.0-16.0); Mean Corpuscular HGB Conc 30.9 g/dl (31.0-35.0); Mean Corpuscular Hemoglobin 24.5 pg (27.0-33.0); Mean Corpuscular Volume 79.3 fL (80.0-98.0); Mean Platelet Volume 11.1 fL (9.4-12.3); Platelet Count 191 X10*3/uL (160-400); Red Blood Count 3.87 X10*6/uL (4.20-5.50); Red Cell Distribution Width 16.8 % (11.0-16.0); White Blood Count 13.8 X10*3/uL (4.8-10.8)
[2024-05-16] MEDS: 0.9 % Sodium Chloride Flush 3 ML SYRINGE IVFLUSH ×3 (07:51→20:29)
[2024-05-16 07:52] LABS: Anion Gap 11 (12-20); Blood Urea Nitrogen 15 mg/dL (9-16); Carbon Dioxide 26 mmol/L (22-29); Chloride 102 mmol/L (96-108); Creatinine Clr Calc Pharmacy 56.6; Estimated Glomerular Filt Rate 50; Glucose Random 100 mg/dL (60-115); Potassium 3.6 mmol/L (3.3-5.1); Sodium 135 mmol/L (135-145)
[2024-05-16] MEDS: Docusate Sodium 100 MG CAPSULE PO ×2 (07:52→20:28)
[2024-05-16] MEDS: polyethylene glycoL 3350 17 GM POWD.PACK PO (07:52)
[2024-05-16] MEDS: Acetaminophen 325 MG TABLET 650 MG PO (08:00)
[2024-05-16 08:04] LABS: Calcium 9.1 mg/dL (8.4-10.2)
--- NOTE | 2024-05-16 10:51 | MHC.CM.PN ---
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
[2024-05-16] MEDS: Multivitamin TABLET 1 TAB PO (11:16)
[2024-05-16] MEDS: lisinopriL 40 MG TABLET PO (11:17)
[2024-05-16] MEDS: Metoprolol Succinate ER 25 MG TAB.ER.24H PO (11:17)
[2024-05-16] MEDS: DULoxetine HCl 60 MG CAPSULE.DR PO (11:17)
[2024-05-16] MEDS: Ferrous Sulfate 324 MG TABLET.DR PO (11:17)
--- NOTE | 2024-05-16 11:19 | PC.NURSE ---
bladder scanned for 276 ml by SPECIAL EDUCATION TUTOR Kayla
[2024-05-16 11:33] LABS: Vancomycin Random 4.9 mcg/mL (15-20)
--- NOTE | 2024-05-16 11:56 | HO.PM.IMPN ---
Subjective Subjective Date of Service: 05/16/24 Interval History: 1 of 2 BCx positive for GPCs in chains febrile to 103.2 yesterday; afebrile this morning severe RLE pain Review of Systems Review of Systems: Yes all other systems are reviewed and are negative Physical Exam Vital Signs: Vital Signs: Last Vital Signs Temp 96 F L 05/16/24 11:14 Pulse 101 H 05/16/24 11:14 Resp 20 05/16/24 11:14 BP 146/69 H 05/16/24 11:14 Pulse Ox 95 05/16/24 11:14 O2 Del Method Room Air 05/16/24 11:14 BMI result Body Mass Index 32.7 Gen: in no acute distress HEENT: sclera anicteric, moist mucus membranes Neck: supple Lungs: clear to auscultation bilaterally Heart: regular rate and rhythm, no murmurs Abd: soft, non-tender, non-distended Ext: extensive erythema + inudration of entire RLE from groin to foot; no purulent collections Skin: warm/well-perfused Neuro: alert and oriented x3, no focal findings Psych: appropriate affect Objective Data Active Medications Acetaminophen (Acetaminophen 325 Mg Tablet) 650 mg PO Q6H PRN PRN Reason: Pain, Mild (Pain Scale 1-3), fever or headache Last Admin: 05/16/24 08:00 Dose: 650 mg Documented By: LAUREN Albuterol Sulfate (Albuterol Sulfate 90 Mcg 8 Gm Inhaler) 2 puff INHALE Q4H PRN PRN Reason: wheezing Benzonatate (Benzonatate 100 Mg Capsule) 100 mg PO TID PRN PRN Reason: Cough Calcium Carbonate (Calcium Carbonate 750 Mg Tab.Chew) 750 mg PO Q4H PRN PRN Reason: Heartburn Last Admin: 05/16/24 03:51 Dose: 750 mg Documented By: CASTILM Docusate Sodium (Docusate Sodium 100 Mg Capsule) 100 mg PO BID [facility] Last Admin: 05/16/24 07:52 Dose: 100 mg Documented By: LAUREN Duloxetine HCl (Duloxetine Hcl 60 Mg Capsule.Dr) 60 mg PO DAILY [facility] Last Admin: 05/16/24 11:17 Dose: 60 mg Documented By: LAUREN Enoxaparin Sodium (Enoxaparin Sodium 40 Mg/0.4 Ml Syringe) 40 mg SUBCUT Q24H [facility] Last Admin: 05/15/24 14:56 Dose: 40 mg Documented By: TASH Ferrous Sulfate (Ferrous Sulfate 324 Mg Tablet.Dr) 324 mg PO DAILY [facility] Last Admin: 05/16/24 11:17 Dose: 324 mg Documented By: LAUREN Clindamycin Phosphate (Cleocin) 600 mg in 50 mls @ 100 mls/hr IV Q8H [facility] Last Infusion: 05/16/24 05:53 Dose: Infused Documented By: REECE Vancomycin HCl 1,000 mg/Vancomycin HCl 750 mg/ Sodium Chloride 535 mls @ 267.5 mls/hr IV Q24H [facility] Lisinopril (Lisinopril 40 Mg Tablet) 40 mg PO DAILY [facility]; Protocol Last Admin: 05/16/24 11:17 Dose: 40 mg Documented By: LAUREN Melatonin (Melatonin 3 Mg Tablet) 9 mg PO BEDTIME PRN PRN Reason: insomnia Metoprolol Succinate (Metoprolol Succinate Er 25 Mg Tab.Er.24h) 25 mg PO DAILY [facility]; Protocol Last Admin: 05/16/24 11:17 Dose: 25 mg Documented By: LAUREN Morphine Sulfate (Morphine Sulfate 4 Mg/Ml Cartridge) 4 mg IVPUSH Q4H PRN; Protocol PRN Reason: Pain, Severe (Pain Scale 7-10) Last Admin: 05/16/24 07:53 Dose: 4 mg Documented By: LAUREN Multivitamins/Vitamin C (Multivitamin Tablet) 1 tab PO DAILY [facility] Last Admin: 05/16/24 11:16 Dose: 1 tab Documented By: LAUREN Ondansetron HCl (Ondansetron Hcl 4 Mg/2 Ml Vial) 4 mg IVPUSH Q8H PRN PRN Reason: Nausea and Vomiting Last Admin: 05/16/24 03:25 Dose: 4 mg Documented By: REECE Pharmacy Consult (Consult Rx Vancomycin Dosing) 1 each MISCELLANE DAILY PRN PRN Reason: Consult order Polyethylene Glycol (Polyethylene Glycol 3350 17 Gm Powd.Pack) 17 gm PO DAILY [facility] Last Admin: 05/16/24 07:52 Dose: 17 gm Documented By: LAUREN Sodium Chloride (0.9 % Sodium Chloride Flush 3 Ml Syringe) 3 ml IVFLUSH QSHIFT [facility] Last Admin: 05/16/24 07:51 Dose: 3 ml Documented By: SANTIAGODAGMAR Sumatriptan Succinate (Sumatriptan Succinate 25 Mg Tablet) 25 mg PO DAILY PRN PRN Reason: Migraine Headache Trazodone HCl (Trazodone Hcl 100 Mg Tablet) 100 mg PO BEDTIME [facility] Labs 05/16/24 06:01 05/16/24 06:01 Labs: Laboratory Results - last 24 hr 05/16/24 05/16/24 05/16/24 00:04 05:24 06:01 MCV 79.3 L MCH 24.5 L MCHC 30.9 L RDW 16.8 H Plt Count 191 MPV 11.1 Absolute Nucleated RBC 0.000 Nucleated RBC % (auto) 0.0 Anion Gap 11 L Estim Creat Clear Calc 56.6 Estimated GFR 50 Random Glucose 100 Lactic Acid 0.7 Calcium 9.1 D Urine Color Yellow Urine Appearance Clear Urine pH 6.0 Ur Specific [place] 1.020 Urine Protein Trace Urine Glucose (UA) Negative Urine Ketones Trace Urine Blood Negative Urine Nitrite Negative Ur Leukocyte Esterase Negative Random Vancomycin 05/16/24 11:08 MCV MCH MCHC RDW Plt Count MPV Absolute Nucleated RBC Nucleated RBC % (auto) Anion Gap Estim Creat Clear Calc Estimated GFR Random Glucose Lactic Acid Calcium Urine Color Urine Appearance Urine pH Ur Specific [place] Urine Protein Urine Glucose (UA) Urine Ketones Urine Blood Urine Nitrite Ur Leukocyte Esterase Random Vancomycin 4.9 L ITS Impressions Venous Duplex 05/15/24 11:21 IMPRESSION: No evidence of deep venous thrombosis involving the right lower extremity. Electronically signed by: Slivio Aparicio MD 05/15/2024 12:03 PM EDT Microbiology Microbiology Results: Microbiology 05/15/24 11:03 Blood Culture - Preliminary Blood - Venous 05/15/24 10:51 Blood Culture - Preliminary Blood - Venous Prelim: GPC Gram Stain only Assessment and Plan (1) Cellulitis: Status: Acute Assessment and Plan: d2 63yo F with HTN, asthma, migraines, FM, urinary retention due to remote hx cervical CA, mood disorder, recurrent RLE cellulitis admitted for sepsis due to RLE cellulitis nonpurulent cellulitis RLE ?bacteremia - continue vanco + clinda 05/15- as per prior ID consult in January; in future, shoulld be on prophylactic PCN which she had run out of a few months ago - follow BCx from 05/15; hopefully contaminant - IV morphine prn pain chronic issues: HTN- lisinopril, metoprolol succinate mild intermittent asthma- prn albuterol ALIYA- Fe urinary retention- self cath prn FM- duloxetine mood disorder- trazodone VTE ppx- LMWH dispo- TBD In my clinical judgment, the patient requires continued inpatient hospitalization for the following reasons: IV ABX Quality Stroke Does the patient have a stroke diagnosis?: No VTE Prior VTE?: No VTE Risk Level:: Medical - moderate - high VTE Device Contraindication: Treatment Not Indicated VTE Drug Contraindication: N/A - Med Ordered
[2024-05-16] MEDS: Enoxaparin Sodium 40 MG/0.4 ML SYRINGE SUBCUT (12:06)
[2024-05-16] MEDS: vancomycin HCL 1,000 MG, vancomycin HCL 750 MG in 0.9 % Sodium Chloride 500 ML 267.5 MG IV (12:07)
--- NOTE | 2024-05-16 17:32 | PC.NURSE ---
Bladder scanned by ALBERT Garza for 274 ml ,patient denies need for str cath at this time
[2024-05-16] MEDS: traZODone HCL 100 MG TABLET PO (20:28)
[2024-05-17] MEDS: Morphine Sulfate 4 MG/ML CARTRIDGE IVPUSH ×5 (02:19→20:26)
[2024-05-17 04:00] VITALS: BP 140/70; PULSE 111; RESP 16; TEMP 37.3; O2SAT 93
[2024-05-17] MEDS: Clindamycin Phosphate/D5W 600 MG/50 ML PIGGYBACK 100 MG IV (05:39)
[2024-05-17 07:01] LABS: Anion Gap 11 (12-20); Blood Urea Nitrogen 15 mg/dL (9-16); C Reactive Protein 46.28 mg/dL (< or = 0.50); Calcium 9.1 mg/dL (8.4-10.2); Carbon Dioxide 24 mmol/L (22-29); Chloride 102 mmol/L (96-108); Creatinine Clr Calc Pharmacy 75.7; Estimated Glomerular Filt Rate > 60; Glucose Random 96 mg/dL (60-115); Potassium 3.8 mmol/L (3.3-5.1); Sodium 133 mmol/L (135-145)
[2024-05-17 07:21] LABS: Hematocrit 27.3 % (37.0-47.0); Hemoglobin 8.6 g/dl (12.0-16.0); Mean Corpuscular HGB Conc 31.5 g/dl (31.0-35.0); Mean Corpuscular Hemoglobin 24.6 pg (27.0-33.0); Mean Corpuscular Volume 78.2 fL (80.0-98.0); Mean Platelet Volume 11.6 fL (9.4-12.3); Platelet Count 170 X10*3/uL (160-400); Red Blood Count 3.49 X10*6/uL (4.20-5.50); Red Cell Distribution Width 16.7 % (11.0-16.0); White Blood Count 13.4 X10*3/uL (4.8-10.8)
[2024-05-17 08:00] VITALS: BP 144/69; PULSE 104; RESP 18; TEMP 37.8; O2SAT 92
[2024-05-17] MEDS: Multivitamin TABLET 1 TAB PO (08:54)
[2024-05-17] MEDS: Metoprolol Succinate ER 25 MG TAB.ER.24H PO (08:54)
[2024-05-17] MEDS: 0.9 % Sodium Chloride Flush 3 ML SYRINGE IVFLUSH ×3 (08:54→20:26)
[2024-05-17] MEDS: polyethylene glycoL 3350 17 GM POWD.PACK PO (08:55)
[2024-05-17] MEDS: Docusate Sodium 100 MG CAPSULE PO ×2 (08:55→20:26)
[2024-05-17] MEDS: lisinopriL 40 MG TABLET PO (08:55)
[2024-05-17] MEDS: DULoxetine HCl 60 MG CAPSULE.DR PO (09:13)
[2024-05-17] MEDS: Ferrous Sulfate 324 MG TABLET.DR PO (09:13)
[2024-05-17 10:16] LABS: Vancomycin Random 7.7 mcg/mL (15-20)
--- NOTE | 2024-05-17 10:23 | HE.PHANOTE ---
Vancomycin Dosing Level subtherapeutic at 7.7 today with improvement in SCr to 0.83. Will increase dose to 1500 mg Q12H. New predicted AUC 556 with a trough of 16. Next level in 24 hour on 05/18 @ 1000. Anabell Lorenzana, AllyD
--- NOTE | 2024-05-17 10:33 | P.PNIM_ITS ---
Subjective Subjective Date of Service: 05/17/24 Interval History: Follow up Right leg cellulitis still with pain and swelling Review of Systems Review of Systems: Yes all other systems are reviewed and are negative Physical Exam 2 Vital Signs: Vital Signs: Last Vital Signs Temp 100.0 F 05/17/24 08:00 Pulse 104 H 05/17/24 08:00 Resp 18 05/17/24 08:00 BP 144/69 H 05/17/24 08:00 Pulse Ox 92 05/17/24 08:00 O2 Del Method Room Air 05/17/24 08:00 BMI result Body Mass Index 32.7 Appearing in no acute distress lung sounds are clear to auscultation heart regular rate rhythm, clear S1, S2 positive bowel sounds, abdomen is soft, nontender neuro patient is alert x3, no focal deficits Objective Data Active Medications Acetaminophen (Acetaminophen 325 Mg Tablet) 650 mg PO Q6H PRN PRN Reason: Pain, Mild (Pain Scale 1-3), fever or headache Last Admin: 05/16/24 08:00 Dose: 650 mg Documented By: LAUREN Albuterol Sulfate (Albuterol Sulfate 90 Mcg 8 Gm Inhaler) 2 puff INHALE Q4H PRN PRN Reason: wheezing Benzonatate (Benzonatate 100 Mg Capsule) 100 mg PO TID PRN PRN Reason: Cough Calcium Carbonate (Calcium Carbonate 750 Mg Tab.Chew) 750 mg PO Q4H PRN PRN Reason: Heartburn Last Admin: 05/16/24 03:51 Dose: 750 mg Documented By: CASTILMio Docusate Sodium (Docusate Sodium 100 Mg Capsule) 100 mg PO BID [facility] Last Admin: 05/17/24 08:55 Dose: 100 mg Documented By: CHERYL Duloxetine HCl (Duloxetine Hcl 60 Mg Capsule.) 60 mg PO DAILY [facility] Last Admin: 05/17/24 09:13 Dose: 60 mg Documented By: CHERYL Enoxaparin Sodium (Enoxaparin Sodium 40 Mg/0.4 Ml Syringe) 40 mg SUBCUT Q24H [facility] Last Admin: 05/16/24 12:06 Dose: 40 mg Documented By: LAUREN Ferrous Sulfate (Ferrous Sulfate 324 Mg Tablet.) 324 mg PO DAILY [facility] Last Admin: 05/17/24 09:13 Dose: 324 mg Documented By: CHERYL Clindamycin Phosphate (Cleocin) 600 mg in 50 mls @ 100 mls/hr IV Q8H [facility] Last Infusion: 05/17/24 06:20 Dose: Infused Documented By: DAI Vancomycin HCl 1,500 mg/ (Sodium Chloride) 500 mls @ 333.333 mls/hr IV Q12H [facility] Lisinopril (Lisinopril 40 Mg Tablet) 40 mg PO DAILY [facility]; Protocol Last Admin: 05/17/24 08:55 Dose: 40 mg Documented By: CHERYL Melatonin (Melatonin 3 Mg Tablet) 9 mg PO BEDTIME PRN PRN Reason: insomnia Metoprolol Succinate (Metoprolol Succinate Er 25 Mg Tab.Er.24h) 25 mg PO DAILY [facility]; Protocol Last Admin: 05/17/24 08:54 Dose: 25 mg Documented By: CHERYL Morphine Sulfate (Morphine Sulfate 4 Mg/Ml Cartridge) 4 mg IVPUSH Q3H PRN; Protocol PRN Reason: Pain, Severe (Pain Scale 7-10) Last Admin: 05/17/24 09:13 Dose: 4 mg Documented By: CHERYL Multivitamins/Vitamin C (Multivitamin Tablet) 1 tab PO DAILY [facility] Last Admin: 05/17/24 08:54 Dose: 1 tab Documented By: CHERYL Ondansetron HCl (Ondansetron Hcl 4 Mg/2 Ml Vial) 4 mg IVPUSH Q8H PRN PRN Reason: Nausea and Vomiting Last Admin: 05/16/24 03:25 Dose: 4 mg Documented By: REECE Pharmacy Consult (Consult Rx Vancomycin Dosing) 1 each MISCELLANE DAILY PRN PRN Reason: Consult order Polyethylene Glycol (Polyethylene Glycol 3350 17 Gm Powd.Pack) 17 gm PO DAILY [facility] Last Admin: 05/17/24 08:55 Dose: 17 gm Documented By: CHERYL Sodium Chloride (0.9 % Sodium Chloride Flush 3 Ml Syringe) 3 ml IVFLUSH QSHIFT [facility] Last Admin: 05/17/24 08:54 Dose: 3 ml Documented By: CHERYL Sumatriptan Succinate (Sumatriptan Succinate 25 Mg Tablet) 25 mg PO DAILY PRN PRN Reason: Migraine Headache Trazodone HCl (Trazodone Hcl 100 Mg Tablet) 100 mg PO BEDTIME [facility] Last Admin: 05/16/24 20:28 Dose: 100 mg Documented By: DAI Labs 05/17/24 06:01 05/17/24 06:01 Labs: Laboratory Results - last 24 hr 05/16/24 05/17/24 05/17/24 11:08 06:01 09:48 MCV 78.2 L MCH 24.6 L MCHC 31.5 RDW 16.7 H Plt Count 170 MPV 11.6 Absolute Nucleated RBC 0.000 Nucleated RBC % (auto) 0.0 Anion Gap 11 L Estim Creat Clear Calc 75.7 Estimated GFR > 60 Random Glucose 96 Calcium 9.1 C-Reactive Protein 46.28 H Random Vancomycin 4.9 L 7.7 L Microbiology Microbiology Results: Microbiology 05/15/24 11:03 Blood Culture - Final Blood - Venous Group G streptococcus 05/15/24 10:51 Blood Culture - Final Blood - Venous Group G streptococcus Assessment and Plan (1) Cellulitis: Status: Acute Assessment and Plan: 63yo F with HTN, asthma, migraines, FM, urinary retention due to remote hx cervical CA, mood disorder, recurrent RLE cellulitis admitted for sepsis due to RLE cellulitis nonpurulent cellulitis RLE with group B strep bacteremia neg for DVT vanco + clinda changed to Rocephin IV morphine prn pain HTN lisinopril, metoprolol succinate mild intermittent asthma prn albuterol iron def anemia continue Fe urinary retention self cath prn FM duloxetine mood disorder trazodone VTE ppx- LMWH In my clinical judgment, the patient requires continued inpatient hospitalization for the following reasons: IV ABX Quality Stroke Does the patient have a stroke diagnosis?: No VTE Prior VTE?: No VTE Risk Level:: Medical - moderate - high VTE Device Contraindication: Treatment Not Indicated VTE Drug Contraindication: N/A - Med Ordered
[2024-05-17 12:00] VITALS: BP 146/74; PULSE 98; RESP 18; TEMP 37.1; O2SAT 92
[2024-05-17] MEDS: vancomycin HCL 1,500 MG in 0.9 % Sodium Chloride 500 ML 333.33 MG IV (12:47)
[2024-05-17] MEDS: Enoxaparin Sodium 40 MG/0.4 ML SYRINGE SUBCUT (12:47)
[2024-05-17 15:36] VITALS: BP 149/92; PULSE 100; RESP 16; TEMP 37.1; O2SAT 100
[2024-05-17 20:00] VITALS: BP 150/80; PULSE 99; RESP 17; TEMP 37.3; O2SAT 90
[2024-05-17] MEDS: traZODone HCL 100 MG TABLET PO (20:26)
[2024-05-17 23:53] VITALS: BP 130/78; PULSE 102; RESP 17; TEMP 36.6; O2SAT 92
[2024-05-18] VITALS (7 sets, daily range): BP systolic 124–155; BP diastolic 67–81; PULSE 74–102; RESP 17–20; TEMP 36.3–38.3; O2SAT 91–98
[2024-05-18] MEDS: vancomycin HCL 1,500 MG in 0.9 % Sodium Chloride 500 ML 333.33 MG IV (00:10)
[2024-05-18] MEDS: ondansetron HCL 4 MG/2 ML VIAL IVPUSH (04:31)
[2024-05-18] MEDS: Morphine Sulfate 4 MG/ML CARTRIDGE IVPUSH ×4 (05:25→21:08)
[2024-05-18 07:13] LABS: Creatinine Clr Calc Pharmacy 87.2; Estimated Glomerular Filt Rate > 60
[2024-05-18] MEDS: polyethylene glycoL 3350 17 GM POWD.PACK PO (09:15)
[2024-05-18] MEDS: Multivitamin TABLET 1 TAB PO (09:16)
[2024-05-18] MEDS: Ferrous Sulfate 324 MG TABLET.DR PO (09:16)
[2024-05-18] MEDS: DULoxetine HCl 60 MG CAPSULE.DR PO (09:16)
[2024-05-18] MEDS: Metoprolol Succinate ER 25 MG TAB.ER.24H PO (09:16)
[2024-05-18] MEDS: lisinopriL 40 MG TABLET PO (09:16)
[2024-05-18] MEDS: 0.9 % Sodium Chloride Flush 3 ML SYRINGE IVFLUSH ×3 (09:17→21:09)
--- NOTE | 2024-05-18 09:22 | HO.PM.IMPN ---
Subjective Subjective Date of Service: 05/18/24 Interval History: Follow up Right leg cellulitis still with pain and swelling Review of Systems Review of Systems: Yes all other systems are reviewed and are negative Physical Exam Vital Signs: Vital Signs: Last Vital Signs Temp 98.9 F 05/18/24 08:00 Pulse 85 05/18/24 09:16 Resp 17 05/18/24 08:00 BP 151/69 H 05/18/24 09:16 Pulse Ox 98 05/18/24 08:00 O2 Del Method Nasal Cannula 05/18/24 08:00 O2 Flow Rate 2 05/18/24 08:00 BMI result Body Mass Index 32.7 Appearing in no acute distress lung sounds are clear to auscultation heart regular rate rhythm, clear S1, S2 positive bowel sounds, abdomen is soft, nontender neuro patient is alert x3, no focal deficits Right leg erythema, edema and heat Objective Data Active Medications Acetaminophen (Acetaminophen 325 Mg Tablet) 650 mg PO Q6H PRN PRN Reason: Pain, Mild (Pain Scale 1-3), fever or headache Last Admin: 05/16/24 08:00 Dose: 650 mg Documented By: LAUREN Albuterol Sulfate (Albuterol Sulfate 90 Mcg 8 Gm Inhaler) 2 puff INHALE Q4H PRN PRN Reason: wheezing Benzonatate (Benzonatate 100 Mg Capsule) 100 mg PO TID PRN PRN Reason: Cough Calcium Carbonate (Calcium Carbonate 750 Mg Tab.Chew) 750 mg PO Q4H PRN PRN Reason: Heartburn Last Admin: 05/16/24 03:51 Dose: 750 mg Documented By: REECE Docusate Sodium (Docusate Sodium 100 Mg Capsule) 100 mg PO BID [facility] Last Admin: 05/18/24 09:17 Dose: Not Given Documented By: CAMILA Non-Admin Reason: Patient Refused Duloxetine HCl (Duloxetine Hcl 60 Mg Capsule.) 60 mg PO DAILY [facility] Last Admin: 05/18/24 09:16 Dose: 60 mg Documented By: CAMILA Enoxaparin Sodium (Enoxaparin Sodium 40 Mg/0.4 Ml Syringe) 40 mg SUBCUT Q24H [facility] Last Admin: 05/17/24 12:47 Dose: 40 mg Documented By: CHERYL Ferrous Sulfate (Ferrous Sulfate 324 Mg Tablet.) 324 mg PO DAILY [facility] Last Admin: 05/18/24 09:16 Dose: 324 mg Documented By: CAMILA Vancomycin HCl 1,500 mg/ (Sodium Chloride) 500 mls @ 333.333 mls/hr IV Q12H [facility] Last Infusion: 05/18/24 01:47 Dose: Infused Documented By: DAI Lisinopril (Lisinopril 40 Mg Tablet) 40 mg PO DAILY [facility]; Protocol Last Admin: 05/18/24 09:16 Dose: 40 mg Documented By: CAMILA Melatonin (Melatonin 3 Mg Tablet) 9 mg PO BEDTIME PRN PRN Reason: insomnia Metoprolol Succinate (Metoprolol Succinate Er 25 Mg Tab.Er.24h) 25 mg PO DAILY [facility]; Protocol Last Admin: 05/18/24 09:16 Dose: 25 mg Documented By: CAMILA Morphine Sulfate (Morphine Sulfate 4 Mg/Ml Cartridge) 4 mg IVPUSH Q3H PRN; Protocol PRN Reason: Pain, Severe (Pain Scale 7-10) Last Admin: 05/18/24 09:12 Dose: 4 mg Documented By: CAMILA Multivitamins/Vitamin C (Multivitamin Tablet) 1 tab PO DAILY [facility] Last Admin: 05/18/24 09:16 Dose: 1 tab Documented By: CAMILA Ondansetron HCl (Ondansetron Hcl 4 Mg/2 Ml Vial) 4 mg IVPUSH Q8H PRN PRN Reason: Nausea and Vomiting Last Admin: 05/18/24 04:31 Dose: 4 mg Documented By: DAI Pharmacy Consult (Consult Rx Vancomycin Dosing) 1 each MISCELLANE DAILY PRN PRN Reason: Consult order Polyethylene Glycol (Polyethylene Glycol 3350 17 Gm Powd.Pack) 17 gm PO DAILY [facility] Last Admin: 05/18/24 09:15 Dose: 17 gm Documented By: CAMILA Sodium Chloride (0.9 % Sodium Chloride Flush 3 Ml Syringe) 3 ml IVFLUSH QSHIFT [facility] Last Admin: 05/18/24 09:17 Dose: 3 ml Documented By: CAMILA Sumatriptan Succinate (Sumatriptan Succinate 25 Mg Tablet) 25 mg PO DAILY PRN PRN Reason: Migraine Headache Trazodone HCl (Trazodone Hcl 100 Mg Tablet) 100 mg PO BEDTIME [facility] Last Admin: 05/17/24 20:26 Dose: 100 mg Documented By: DAI Labs 05/17/24 06:01 05/18/24 05:55 Labs: Laboratory Results - last 24 hr 05/17/24 05/18/24 09:48 05:55 Hold Purple Top SEE NOTE Estim Creat Clear Calc 87.2 Estimated GFR > 60 Random Vancomycin 7.7 L Microbiology Microbiology Results: Microbiology 05/15/24 11:03 Blood Culture - Final Blood - Venous Group G streptococcus 05/15/24 10:51 Blood Culture - Final Blood - Venous Group G streptococcus Assessment and Plan (1) Cellulitis: Status: Acute Assessment and Plan: 63yo F with HTN, asthma, migraines, FM, urinary retention due to remote hx cervical CA, mood disorder, recurrent RLE cellulitis admitted for sepsis due to RLE cellulitis nonpurulent cellulitis RLE with group B strep bacteremia neg for DVT vanco + clinda changed to Rocephin IV morphine prn pain HTN lisinopril, metoprolol succinate mild intermittent asthma prn albuterol iron def anemia continue Fe urinary retention self cath prn FM duloxetine mood disorder trazodone VTE ppx- LMWH In my clinical judgment, the patient requires continued inpatient hospitalization for the following reasons: IV ABX Quality Stroke Does the patient have a stroke diagnosis?: No VTE Prior VTE?: No VTE Risk Level:: Medical - moderate - high VTE Device Contraindication: Treatment Not Indicated VTE Drug Contraindication: N/A - Med Ordered
[2024-05-18 11:12] LABS: Vancomycin Random 14.9 mcg/mL (15-20)
[2024-05-18] MEDS: Enoxaparin Sodium 40 MG/0.4 ML SYRINGE SUBCUT (13:25)
[2024-05-18] MEDS: Acetaminophen 325 MG TABLET 650 MG PO (15:11)
[2024-05-18] MEDS: cefTRIAXone sodium 1 GM in 0.9 % Sodium Chloride 50 ML IV (16:01)
[2024-05-18] MEDS: traZODone HCL 100 MG TABLET PO (21:08)
[2024-05-18] MEDS: Docusate Sodium 100 MG CAPSULE PO (21:09)
[2024-05-19 03:15] VITALS: BP 132/64; PULSE 98; RESP 20; TEMP 36.3; O2SAT 93
[2024-05-19] MEDS: Morphine Sulfate 4 MG/ML CARTRIDGE IVPUSH ×4 (04:54→20:27)
[2024-05-19 06:35] LABS: Creatinine Clr Calc Pharmacy 82.6; Estimated Glomerular Filt Rate > 60
[2024-05-19 07:19] VITALS: BP 132/69; PULSE 73; RESP 14; TEMP 36.1; O2SAT 100
[2024-05-19] MEDS: Multivitamin TABLET 1 TAB PO (07:58)
[2024-05-19] MEDS: Ferrous Sulfate 324 MG TABLET.DR PO (07:58)
[2024-05-19] MEDS: Docusate Sodium 100 MG CAPSULE PO ×2 (07:58→20:26)
[2024-05-19] MEDS: lisinopriL 40 MG TABLET PO (07:58)
[2024-05-19] MEDS: DULoxetine HCl 60 MG CAPSULE.DR PO (07:58)
[2024-05-19] MEDS: Metoprolol Succinate ER 25 MG TAB.ER.24H PO (07:58)
[2024-05-19] MEDS: polyethylene glycoL 3350 17 GM POWD.PACK PO (07:58)
[2024-05-19] MEDS: 0.9 % Sodium Chloride Flush 3 ML SYRINGE IVFLUSH ×3 (08:02→20:29)
--- NOTE | 2024-05-19 08:10 | P.PNIM_ITS ---
Subjective Subjective Date of Service: 05/19/24 Interval History: Follow up Right leg cellulitis still with pain and swelling no fever overnight less pain and swelling Review of Systems Review of Systems: Yes all other systems are reviewed and are negative Physical Exam 2 Vital Signs: Vital Signs: Last Vital Signs Temp 97.0 F 05/19/24 07:19 Pulse 73 05/19/24 07:19 Resp 14 05/19/24 07:19 BP 132/69 05/19/24 07:19 Pulse Ox 100 05/19/24 07:19 O2 Del Method Room Air 05/19/24 07:19 O2 Flow Rate 2 05/19/24 03:15 BMI result Body Mass Index 32.7 Appearing in no acute distress lung sounds are clear to auscultation heart regular rate rhythm, clear S1, S2 positive bowel sounds, abdomen is soft, nontender neuro patient is alert x3, no focal deficits Erythema and edema improving Objective Data Active Medications Acetaminophen (Acetaminophen 325 Mg Tablet) 650 mg PO Q6H PRN PRN Reason: Pain, Mild (Pain Scale 1-3), fever or headache Last Admin: 05/18/24 15:11 Dose: 650 mg Documented By: CAMILA Albuterol Sulfate (Albuterol Sulfate 90 Mcg 8 Gm Inhaler) 2 puff INHALE Q4H PRN PRN Reason: wheezing Benzonatate (Benzonatate 100 Mg Capsule) 100 mg PO TID PRN PRN Reason: Cough Calcium Carbonate (Calcium Carbonate 750 Mg Tab.Chew) 750 mg PO Q4H PRN PRN Reason: Heartburn Last Admin: 05/16/24 03:51 Dose: 750 mg Documented By: REECE Docusate Sodium (Docusate Sodium 100 Mg Capsule) 100 mg PO BID [facility] Last Admin: 05/19/24 07:58 Dose: 100 mg Documented By: CHERYL Duloxetine HCl (Duloxetine Hcl 60 Mg Capsule.) 60 mg PO DAILY [facility] Last Admin: 05/19/24 07:58 Dose: 60 mg Documented By: CHERYL Enoxaparin Sodium (Enoxaparin Sodium 40 Mg/0.4 Ml Syringe) 40 mg SUBCUT Q24H [facility] Last Admin: 05/18/24 13:25 Dose: 40 mg Documented By: CAMILA Ferrous Sulfate (Ferrous Sulfate 324 Mg Tablet.) 324 mg PO DAILY [facility] Last Admin: 05/19/24 07:58 Dose: 324 mg Documented By: CHERYL Ceftriaxone Sodium 1 gm/ (Sodium Chloride) 50 mls @ 100 mls/hr IV Q24H [facility] Last Infusion: 05/18/24 16:29 Dose: Infused Documented By: CAMILA Lisinopril (Lisinopril 40 Mg Tablet) 40 mg PO DAILY [facility]; Protocol Last Admin: 05/19/24 07:58 Dose: 40 mg Documented By: CHERYL Melatonin (Melatonin 3 Mg Tablet) 9 mg PO BEDTIME PRN PRN Reason: insomnia Metoprolol Succinate (Metoprolol Succinate Er 25 Mg Tab.Er.24h) 25 mg PO DAILY [facility]; Protocol Last Admin: 05/19/24 07:58 Dose: 25 mg Documented By: CHERYL Morphine Sulfate (Morphine Sulfate 4 Mg/Ml Cartridge) 4 mg IVPUSH Q3H PRN; Protocol PRN Reason: Pain, Severe (Pain Scale 7-10) Last Admin: 05/19/24 07:58 Dose: 4 mg Documented By: CHERYL Multivitamins/Vitamin C (Multivitamin Tablet) 1 tab PO DAILY [facility] Last Admin: 05/19/24 07:58 Dose: 1 tab Documented By: CHERYL Ondansetron HCl (Ondansetron Hcl 4 Mg/2 Ml Vial) 4 mg IVPUSH Q8H PRN PRN Reason: Nausea and Vomiting Last Admin: 05/18/24 04:31 Dose: 4 mg Documented By: DAI Polyethylene Glycol (Polyethylene Glycol 3350 17 Gm Powd.Pack) 17 gm PO DAILY [facility] Last Admin: 05/19/24 07:58 Dose: 17 gm Documented By: CHERYL Sodium Chloride (0.9 % Sodium Chloride Flush 3 Ml Syringe) 3 ml IVFLUSH QSHIFT [facility] Last Admin: 05/19/24 08:02 Dose: 3 ml Documented By: CHERYL Sumatriptan Succinate (Sumatriptan Succinate 25 Mg Tablet) 25 mg PO DAILY PRN PRN Reason: Migraine Headache Trazodone HCl (Trazodone Hcl 100 Mg Tablet) 100 mg PO BEDTIME [facility] Last Admin: 05/18/24 21:08 Dose: 100 mg Documented By: SVEN Sanchez 05/17/24 06:01 05/19/24 05:57 Labs: Laboratory Results - last 24 hr 05/18/24 05/19/24 10:39 05:57 Estim Creat Clear Calc 82.6 Estimated GFR > 60 Random Vancomycin 14.9 L Assessment and Plan (1) Cellulitis: Status: Acute Assessment and Plan: 63yo F with HTN, asthma, migraines, FM, urinary retention due to remote hx cervical CA, mood disorder, recurrent RLE cellulitis admitted for sepsis due to RLE cellulitis Nonpurulent cellulitis RLE with group G strep bacteremia erythema and edema improving neg for DVT vanco + clinda changed to Rocephin IV morphine prn pain HTN lisinopril, metoprolol succinate mild intermittent asthma prn albuterol iron def anemia continue Fe urinary retention self cath prn FM duloxetine mood disorder trazodone VTE ppx- LMWH Attending Dr. Roth In my clinical judgment, the patient requires continued inpatient hospitalization for the following reasons: IV ABX Quality Stroke Does the patient have a stroke diagnosis?: No VTE Prior VTE?: No VTE Risk Level:: Medical - moderate - high VTE Device Contraindication: Treatment Not Indicated VTE Drug Contraindication: N/A - Med Ordered
[2024-05-19] MEDS: Enoxaparin Sodium 40 MG/0.4 ML SYRINGE SUBCUT (14:07)
[2024-05-19 15:18] VITALS: BP 120/83; PULSE 84; RESP 18; TEMP 36.6; O2SAT 91
[2024-05-19] MEDS: cefTRIAXone sodium 1 GM in 0.9 % Sodium Chloride 50 ML IV (15:36)
[2024-05-19 19:53] VITALS: BP 132/79; PULSE 92; RESP 18; TEMP 37.9; O2SAT 92
[2024-05-19] MEDS: traZODone HCL 100 MG TABLET PO (20:27)
[2024-05-19] MEDS: Acetaminophen 325 MG TABLET 650 MG PO (20:31)
[2024-05-20] MEDS: Morphine Sulfate 4 MG/ML CARTRIDGE IVPUSH ×2 (00:48→08:47)
[2024-05-20] MEDS: Acetaminophen 325 MG TABLET 650 MG PO (03:09)
[2024-05-20 03:51] VITALS: BP 108/59; PULSE 79; RESP 20; TEMP 36.1; O2SAT 94
[2024-05-20 06:17] LABS: Creatinine Clr Calc Pharmacy 75.7; Estimated Glomerular Filt Rate > 60
[2024-05-20 07:10] VITALS: BP 127/67; PULSE 76; RESP 20; TEMP 36.2; O2SAT 92
--- NOTE | 2024-05-20 08:05 | P.DS_ITS ---
DS: Providers Provider Date of Service: 05/20/24 Date of admission: 05/15/24 13:14 Primary care physician: Lilly Cowart MD Consults: 05/20/24 07:09 Consult to Infectious Diseases Routine Consulting Provider: [facility] Reason for consultation: right leg cellulitis DS: Diagnosis Discharge Diagnosis (1) Cellulitis: Status: Acute DS: Summary Hospital Course Hospital Course: History and physical as per admitting provider. Pt is a 63-year-old female with a PMH significant for?HTN, mild intermittent asthma migraines, fibromyalgia, recurrent right lower extremity cellulitis, urinary retention self caths at home secondary to cervical cancer in 1996, and mood disorder who presents to the ED with?increased right lower extremity swelling, redness, and pain x3 days. Reports pain radiates upper back and to her shoulders, and rates it a 10/10. He has also had associated nausea without vomiting. Subjective fever and chills at home. Had difficulty breathing last night, was awoken multiple times sweating. No known trauma to the area. Denies chest pain/pressure, palpitations. No shortness a breath or difficulty breathing. Pt has been admitted to this hospital for similar symptoms in the past, most recently on 02/09/24, 05/20/24, 05/08/24, and 10/11/22. States recurrent episodes of cellulitis at began ever since patient right TKA with [facility] in 2001. No known history of joint infection. In the ED pt was tachycardic up to 99 and mildly hypertensive up to 151/76, vitals otherwise WNL. Labs were significant for leukocytosis of 13.7, stable microcytic anemia of 10.7/33.2, ESR 38, and CRP 4.33. Lactic acid WNL at 1.2. Venous duplex of RLE showed no evidence DVT. Pt was treated in the ED with IVF, morphine, acetaminophen, ondansetron, vanco, and Zosyn. Pt will be admitted to the hospital for treatment of right lower extremity cellulitis meeting SIRS criteria. 63-year-old woman treated for recurrent nonpurulent cellulitis to right lower extremity with group G bacteremia. Noted erythema and edema which has improved significantly. Patient has also been able to have more range of motion and movement to right lower extremity. She has been ambulating with minimal pain. Venous Doppler ultrasound was negative for DVT. She was initially started on vancomycin clindamycin but changed to Rocephin after blood cultures returned. She has been treated with IV morphine and oxycodone for pain. Plan is to discharge home to complete antibiotic course Ceftin. She should follow up with orthopedic surgeon as the symptoms of recurrent cellulitis started after her k nee surgery. Hypertension. Continue lisinopril and metoprolol Mild intermittent asthma. No exacerbation during hospitalization. Continue albuterol Iron-deficiency anemia. Continue iron supplementation History of urinary retention. Continue self catheterization at home as needed Mental health. Continue trazodone Time Attestation Discharge Coordination Time (in mins): 35 Quality: Safe Use of Opioids Does Pt have an Active Cancer Diagnosis on the Problem List?: No Quality: Stroke Does the patient have a stroke diagnosis?: No Physical Exam Vital Signs: Vital Signs: Last Vital Signs Temp 97.1 F 05/20/24 07:10 Pulse 76 05/20/24 07:10 Resp 20 05/20/24 07:10 BP 127/67 05/20/24 07:10 Pulse Ox 92 05/20/24 07:10 O2 Del Method Room Air 05/20/24 07:10 O2 Flow Rate 2 05/19/24 03:15 BMI result Body Mass Index 32.7 Appearing in no acute distress head is normocephalic atraumatic eyes pupils are PERRLA sclera is anicteric mouth throat mucous membranes are intact and moist neck is supple no lymphadenopathy, no JVD noted lung sounds are clear to auscultation heart regular rate rhythm, clear S1, S2 positive bowel sounds, abdomen is soft, nontender neuro patient is alert x3, no focal deficits Mild erythema and edema to right lower extremity DS: Data Data Completed and Pending Labs on day of discharge: Laboratory Results - last 24 hr 05/20/24 05:07 Creatinine 0.83 Estim Creat Clear Calc 75.7 Estimated GFR > 60 Preliminary micro results at discharge 05/18/24 15:51 Blood Culture - Preliminary Blood - Venous 05/18/24 15:51 Blood Culture - Preliminary Blood - Venous No growth after 24 hours. Discharge Plan Discharge Anticipated Discharge Date/Time: 05/20/24 08:02 Patient Disposition: Home, Self-Care Discharge Diagnosis: Cellulitis Group G bacteremia Referrals: Lilly Cowart MD [Primary Care Provider] - 1 Week Discharge Medications: New cefuroxime axetil 500 mg tablet 500 mg PO BID Qty: 12 0RF oxycodone 5 mg tablet 5 mg PO Q6H PRN (Reason: pain) Qty: 12 0RF Rx Instructions: Partial Fill upon patient request. Continued sumatriptan succinate 25 mg tablet 25 mg PO DAILY PRN (Reason: Migraine Headache) Rx Instructions: MRX1 2 hours later if needed metoprolol succinate 25 mg tablet extended release 24 hr 1 tab PO DAILY lisinopril 40 mg tablet 1 tab PO DAILY acetaminophen 650 mg tablet extended release 2 tab PO Q8H PRN (Reason: pain) celecoxib 50 mg capsule 50 mg PO DAILY albuterol sulfate [Ventolin HFA] 90 mcg/actuation HFA aerosol inhaler 2 puff INHALATION Q4-6H PRN (Reason: wheezing) Tab-A-Iraj Multivitamin w-iron 18-400 mg-mcg tablet 1 tab PO QAM trazodone 100 mg tablet 100 mg PO BEDTIME duloxetine 60 mg capsule,delayed release(DR/EC) 60 mg PO DAILY melatonin 5 mg tablet 10 mg PO BEDTIME PRN (Reason: insomnia) ferrous sulfate 324 mg (65 mg iron) Tablet,Delayed Release (Dr/Ec) 324 mg PO DAILY Qty: 90 0RF Discharge Orders: Discharge Order (Routine); Ordered 05/20/24 Ordered By: Leti Marlow Diet: Advance to usual diet Activity on Discharge: As tolerated Stand Alone Forms: Patient Portal Discharge page Print Language: [place] Care Plan Goals: Complete course of antibiotic Follow-up with orthopedic surgeon Health Concerns: Cellulitis Group G Streptococcus bacteremia Plan of Treatment: Follow-up with primary care provider as needed Take all medications as prescribed Assessment: See discharge summary Discharge Date/Time: 05/20/24 11:45
[2024-05-20] MEDS: Ferrous Sulfate 324 MG TABLET.DR PO (08:47)
[2024-05-20] MEDS: Multivitamin TABLET 1 TAB PO (08:47)
[2024-05-20] MEDS: DULoxetine HCl 60 MG CAPSULE.DR PO (08:47)
[2024-05-20] MEDS: lisinopriL 40 MG TABLET PO (08:47)
[2024-05-20] MEDS: polyethylene glycoL 3350 17 GM POWD.PACK PO (08:47)
[2024-05-20] MEDS: Docusate Sodium 100 MG CAPSULE PO (08:47)
[2024-05-20] MEDS: Metoprolol Succinate ER 25 MG TAB.ER.24H PO (08:47)
[2024-05-20] MEDS: 0.9 % Sodium Chloride Flush 3 ML SYRINGE IVFLUSH (08:48)
--- NOTE | 2024-05-20 10:55 | MHC.CM.PN ---
PT MEDICALLY CLEARED FOR DC HOME SELF-CARE, PT TO ARRANGE TRANSPORT
--- NOTE | 2024-05-28 12:31 | P.CDIM_ITS ---
PROVIDER RESPONSE TEXT: To clarify, the appropriate diagnosis supported by the clinical indicators: Other (explain): Group G strep bacteremia QUERY TEXT: PHYSICIAN'S DOCUMENTATION REQUEST Date of Query: 05/28/2024 05:50 AM EDT Patient Name: Nadege Lee Admit Date: 05/15/2024 Dear Leti Marlow [employer], RETROSPECTIVE QUERY A review of the medical record indicates additional documentation may be needed. Please review below and update the documentation accordingly. Clarity of medical diagnosis documented within the medical record: H&P 05/15 and progress notes dated 05/16-05/19 - Admitted for Sepsis due to RLE cellulitis. Subjective fevers and chills at home. WBC 13.9 was mildly Tachycardic in Ed and hypertensive 151/76. Vancomycin and Zosyn H&P-Patient meets SIRS criteria ? Bacteremia Group Strep Bacteremia Discharge summary - Cellulitis/Non-purulent cellulitis to the right lower extremity with group G bact eremia. Was started on Vancomycin clindamycin but changed to Rocephin. Discharged home to complete antibiotic course Ceftin. Bacteremia Sepsis Systemic manifestations of infection, with 2 or more SIRS criteria which include: Fever > 100.4?F or hypothermia < 96.8?F Leukocytosis - WBC > 12,000 or leukopenia, WBC < 4,000, or > 10% bands Tachycardia- > 90 beats/minute Tachypnea- RR > 20 breaths/minute or PaCO2 < 32mmHg Clarity and consistency between Sepsis and Bacteremia and SIRS: Sepsis possible, probable, suspected SIRS Group Strep Bacteremia RLE Other (explain) Clinically unable to determine (explain) Thank you, Kirsten Love, CCS, CDIS Use of terms such as suspected, likely, concern for, or probable (associated with a specific diagnosi s that is being evaluated, monitored, or treated as if it exists) are acceptable and can be coded in the inpatient se tting, when documented at the time of discharge. Please use your independent medical judgment in providing your response. THIS QUERY IS PART OF THE PERMANENT MEDICAL RECORD
== END 2024-05-20 11:45 | disposition home or self-care (01) | DRG 383 ==
LOC: HO.ED 12:00 → HO.EDOVER 13:24 → HO.S3 16:32
PROVIDERS: Family Medicine; Student in an Organized Health Care Education/Training Program; Admitting Provider Student in an Organized Health Care Education/Training Program; Emergency Provider Emergency Medicine; PCP General Practice; Visit Provider Nurse Practitioner Acute Care
DX: L03.115 Cellulitis of right lower limb (principal); R78.81 Bacteremia; D50.9 Iron deficiency anemia, unspecified; F17.210 Nicotine dependence, cigarettes, uncomplicated; F39 Unspecified mood [affective] disorder; B95.4 Other streptococcus as the cause of diseases classified elsewhere; I12.9 Hypertensive chronic kidney disease with stage 1 through stage 4 chronic kidney disease, or unspecified chronic kidney disease; J45.20 Mild intermittent asthma, uncomplicated; Z85.41 Personal history of malignant neoplasm of cervix uteri; R33.9 Retention of urine, unspecified; M79.7 Fibromyalgia; N18.30 Chronic kidney disease, stage 3 unspecified; Z71.6 Tobacco abuse counseling; Z79.899 Other long term (current) drug therapy
CPT/HCPCS: 36415; 80048; 80053; 80202; 81003; 82565; 83605; 85025; 85027; 85652; 86140; 87040; 87147; 87186; 87205; 93971; 99285; J0696; J0736; J1650; J2270; J2405; J2543; J3370; J3371; J7120

== ENCOUNTER → 2024-05-15 13:14 | Outpatient (BNV) | payer MEDICAID, SELFPAY | PROVIDERS: Admitting Provider Student in an Organized Health Care Education/Training Program; Emergency Provider Emergency Medicine; PCP General Practice; Visit Provider Family Medicine | DX: L03.115 Cellulitis of right lower limb (principal) | CPT/HCPCS: 99223; 99232; 99239 ==

== ENCOUNTER 2024-08-05 22:18 | Emergency (ER) | payer MEDICAID, SELFPAY ==
[2024-08-05 22:23] VITALS: BP 119/71; PULSE 99; O2SAT 97
[2024-08-05 22:27] VITALS: BMI 32.4
--- NOTE | 2024-08-05 22:32 | ED_ITS ---
HPI - Allergic Reaction General Chief complaint: Allergic Reaction Stated complaint: possible allergic reaction to melatonin Time Seen by Provider: 08/05/24 22:31 Source: patient Mode of arrival: ambulatory Limitations: no limitations History of Present Illness ED Provider: naeem BELTRAN narrative: Patient apparently took melatonin 30 minutes after taking not on any started itching all over the body without any lip or tongue swelling no shortness a breath patient has had taken 2 times earlier melatonin without any reaction received Benadryl 50 mg and Zofran by the EMS Related Data Home Medications ?Medication ?Instructions ?Recorded ?Confirmed acetaminophen 650 mg 2 tab PO Q8H PRN pain 10/11/22 05/15/24 tablet,extended release lisinopril 40 mg tablet 1 tab PO DAILY 10/11/22 05/15/24 metoprolol succinate 25 mg 1 tab PO DAILY 10/11/22 05/15/24 tablet,extended release 24 hr sumatriptan succinate 25 mg tablet 25 mg PO DAILY PRN Migraine 10/11/22 05/15/24 Headache celecoxib 50 mg capsule 50 mg PO DAILY 05/08/23 05/15/24 duloxetine 60 mg capsule,delayed 60 mg PO DAILY 02/09/24 05/15/24 release melatonin 5 mg tablet 10 mg PO BEDTIME PRN insomnia 02/09/24 05/15/24 trazodone 100 mg tablet 100 mg PO BEDTIME 02/09/24 05/15/24 albuterol sulfate 90 mcg/actuation 2 puff inhalation Q4-6H PRN 05/15/24 05/15/24 aerosol inhaler (Ventolin HFA) wheezing multivitamin-ferrous 1 tab PO QAM 05/15/24 05/15/24 fumarate-folic acid 18 mg-400 mcg tablet (Tab-A-Iraj Multivitamin w-iron) Previous Rx's ?Medication ?Instructions ?Recorded ferrous sulfate 324 mg (65 mg 324 mg PO DAILY #90 tabs 02/14/24 iron) tablet,delayed release cefuroxime axetil 500 mg tablet 500 mg PO BID #12 tabs 05/20/24 oxycodone 5 mg tablet 5 mg PO Q6H PRN pain #12 tabs 05/20/24 diphenhydramine HCl 25 mg capsule 50 mg (2 x 25 mg) PO TID PRN 08/06/24 (Benadryl) allergic reaction #14 caps Allergies Allergy/AdvReac Type Severity Reaction Status Date / Time buspirone [From BuSpar] Allergy Mild Tongue Verified 08/05/24 22:28 Swelling, dizziness melatonin Allergy Itching Verified 08/05/24 22:28 ibuprofen [From Motrin] AdvReac Mild Rash, HTN Verified 08/05/24 22:28 Review of Systems Review of Systems: Yes all other systems are reviewed and are negative [facility] Past Medical History Medical History Cellulitis of right lower extremity Fibromyalgia Chronic pain syndrome Neurogenic bladder, NOS Chronic kidney disease, stage 3 Hypertension Anemia Depression Cervical cancer Breast pain Back pain with right-sided radiculopathy Asthma Recurrent cellulitis of lower extremity History of cervical cancer Dyspnea on exertion HTN (hypertension) Anemia Migraines Arthritis Fibromyalgia, primary Surgical History History of right knee joint replacement H/O: hysterectomy Social History Social History Household Members: Other Household Members Other:: sister Housing: House Do you presently have 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 Patient Tobacco Use Status: Current everyday Tobacco user Tobacco use type: Cigarette Cigarette Packs Per Day: 0.4 Cigarettes Per Day: 5 Years Smoked: 40 e-Cigarette/Vaping Use: Never Used Second Hand Smoke Exposure: No Advance Directives: No Advance Directives Information Provided: Yes Advance Directives Date on File: 12/05/16 Do you have a plan to hurt others: No Plan service: No Current occupational status: unemployed Physical Exam ED Vital Signs: Vital Signs - 24 hr 08/05/24 22:36 Temperature 97.9 F Pulse Rate 88 Respiratory Rate 20 Blood Pressure 107/68 Pulse Oximetry 100 Oxygen Delivery Method Room Air BMI result Body Mass Index 32.4 Appearance: Alert. Oriented X3. No acute distress. ENT: Pharynx normal. Oral Mucosa moist tongue and lips are normal Neck: Normal inspection. Neck supple. CVS: Normal heart rate and rhythm. Pulses normal. Respiratory: No respiratory distress. Equal air entry bilateral, no wheezing/rales/rhonchi Abdomen: Soft and nontender. Bowel sounds are present, no mass palpable, no CVA tenderness Skin: Skin warm and dry. Normal skin color. Normal skin turgor. Slight erythematous rash on the face and no upper part of the body without significant high Extremities: No lower extremity edema. No calf tenderness Neuro: Oriented X 3. Medications Administered Discontinued Medications Generic Name Dose Route Start Last Admin Trade Name Freq PRN Reason Stop Dose Admin Methylprednisolone Sodium Succinate 125 mg 08/05/24 22:40 08/05/24 22:53 Methylprednisolone Sod Succ 125 Mg/2 Ml Vial IVPUSH 08/05/24 22:41 125 mg ONCE ONE Administration Medical Decision Making Medical Decision Making [facility] Narrative: Patient's allergic reaction to? Melatonin responded to prednisone and Benadryl Discharge Plan Discharge Clinical Impression: Allergic reaction Patient Disposition: Home, Self-Care Instructions: General Allergic Reaction (ED) Additional Instructions: you are Possibly allergic to melatonin Take Benadryl 1-2 tablets every 6 hours as needed for allergic reaction Prescriptions: New diphenhydramine HCl [Benadryl] 25 mg capsule 50 mg PO TID PRN (Reason: allergic reaction) Qty: 14 0RF No Action sumatriptan succinate 25 mg tablet 25 mg PO DAILY PRN (Reason: Migraine Headache) Rx Instructions: MRX1 2 hours later if needed metoprolol succinate 25 mg tablet extended release 24 hr 1 tab PO DAILY lisinopril 40 mg tablet 1 tab PO DAILY acetaminophen 650 mg tablet extended release 2 tab PO Q8H PRN (Reason: pain) celecoxib 50 mg capsule 50 mg PO DAILY albuterol sulfate [Ventolin HFA] 90 mcg/actuation HFA aerosol inhaler 2 puff INHALATION Q4-6H PRN (Reason: wheezing) Tab-A-Iraj Multivitamin w-iron 18-400 mg-mcg tablet 1 tab PO QAM cefuroxime axetil 500 mg tablet 500 mg PO BID Qty: 12 0RF oxycodone 5 mg tablet 5 mg PO Q6H PRN (Reason: pain) Qty: 12 0RF Rx Instructions: Partial Fill upon patient request. trazodone 100 mg tablet 100 mg PO BEDTIME duloxetine 60 mg capsule,delayed release(DR/EC) 60 mg PO DAILY melatonin 5 mg tablet 10 mg PO BEDTIME PRN (Reason: insomnia) ferrous sulfate 324 mg (65 mg iron) Tablet,Delayed Release (Dr/Ec) 324 mg PO DAILY Qty: 90 0RF Print Language: Luxembourgish
[2024-08-05 22:36] VITALS: BP 107/68; PULSE 88; RESP 20; TEMP 36.6; O2SAT 100
[2024-08-05] MEDS: methylPREDNISolone Sod Succ 125 MG/2 ML VIAL IVPUSH (22:53)
[2024-08-06 00:30] VITALS: BP 107/68; PULSE 88; RESP 20; TEMP 36.6; O2SAT 100
== END 2024-08-06 00:31 | disposition home or self-care (01) ==
PROVIDERS: Emergency Provider Internal Medicine
DX: T78.40XA Allergy, unspecified, initial encounter (principal); L29.9 Pruritus, unspecified; X58.XXXA Exposure to other specified factors, initial encounter
CPT/HCPCS: 96372; 99283; 99284; J2919

== ENCOUNTER 2024-08-11 13:47 | Outpatient (AMB) | payer MEDICAID, SELFPAY ==
[2024-08-11 14:39] VITALS: BP 139/75; PULSE 88; TEMP 37.6
--- NOTE | 2024-08-11 14:39 | MHC.OFFVIS ---
Vital Signs 08/11/24 14:39 Height 5 ft 4 in BP 139/75 Pulse 88 Temp 99.7 F Temp Source Oral Intake Visit Reasons: [facility] [place] reff celulitis Allergies buspirone [From BuSpar] Allergy (Mild, Verified 08/05/24 22:28) Tongue Swelling, dizziness melatonin Allergy (Verified 08/05/24 22:28) Itching ibuprofen [From Motrin] Adverse Reaction (Mild, Verified 08/05/24 22:28) Rash, HTN HPI HPI c reff celulitis: Details: She comes from [facility] for evaluation of right knee swelling. She has right knee prosthesis and has had recurrent cellulitis and swellingl She has had multiple admissions for sepsis. She had right TKR [facility] 2020. She has been on PCN prophylaxis in past and hasnt helped according to patient. [facility] Medical History Cellulitis of right lower extremity Fibromyalgia Chronic pain syndrome Neurogenic bladder, NOS Chronic kidney disease, stage 3 Hypertension Anemia Depression Cervical cancer Breast pain Back pain with right-sided radiculopathy Asthma Recurrent cellulitis of lower extremity History of cervical cancer Dyspnea on exertion HTN (hypertension) Anemia Migraines Arthritis Fibromyalgia, primary Surgical History History of right knee joint replacement H/O: hysterectomy Social History Household Members: Other Household Members Other:: sister Housing: House Do you presently have 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 Patient Tobacco Use Status: Current everyday Tobacco user Tobacco use type: Cigarette Cigarette Packs Per Day: 0.4 Cigarettes Per Day: 5 Years Smoked: 40 e-Cigarette/Vaping Use: Never Used Second Hand Smoke Exposure: No Advance Directives Date on File: 12/05/16 service: No Current occupational status: unemployed Review of Systems Musc Details: right knee pain and swelling Physical Exam Vital Signs: Last Vital Signs Temp 99.7 F 08/11/24 14:39 Pulse 88 08/11/24 14:39 BP 139/75 08/11/24 14:39 Const General: cooperative Orientation/consciousness: patient oriented x3 HEENT Head: Yes normal to inspection Mouth: Normal oral and palatal mucosa present Eyes General: appearance normal, both eyes and all related structures Pupils: Equal, round and reactive pupils present Resp Effort & Inspection: normal respiratory effort Cardio Rate: regular rate Rhythm: regular rhythm GI Palpation (GI): Soft to palpation and nontender General: Yes no CVA tenderness Back/Spine/Pelvis Back: no CVA tenderness Skin General skin exam: no rashes or lesions noted Neuro General: patient oriented x3 Cranial nerves: Yes CN's II-XII intact bilaterally and Yes Equal, round and reactive pupils present Extrem Other: General: Yes normal to inspection Psych Appearance: grossly normal Assessment & Plan Assessment & Plan (1) History of right knee joint replacement: Comment: ~2020 at [facility] She may have problem with prosthesis Code(s): Z96.651 - Presence of right artificial knee joint Category: Surgical Plan: Check knee XR Refer back to [facility] surgeons ,check possible gout or infection/tap knee. Since not helping admissions or cellulitis flares would stop po Penicillin Orders: Orders XR knee RT 2V 08/11/24 G89.4 - Chronic pain syndrome, Z96.651 - Presence of right artificial knee joint Coding Level of Care Code New Pt Level 3 (96846) Diagnoses History of right knee joint replacement Z96.651
== END 2024-08-11 15:08 | disposition home or self-care (01) ==
LOC: HO.HID 13:47
PROVIDERS: Visit Provider Internal Medicine
DX: Z96.651 Presence of right artificial knee joint (principal)
CPT/HCPCS: 99213

== ENCOUNTER → 2024-08-11 13:47 | Outpatient (BNVA) | payer MEDICAID, SELFPAY | PROVIDERS: Visit Provider Internal Medicine ==

== ENCOUNTER 2024-08-11 14:57 | Outpatient (REF) | payer MEDICAID, SELFPAY ==
--- NOTE | ~2024-08-11 | XR_ITS ---
EXAMINATION: XR KNEE, RIGHT CLINICAL INFORMATION: G89.4 - Chronic pain syndrome COMPARISON: X-ray of the right knee 10/13/2022 TECHNIQUE: 2 views of the right knee FINDINGS: There is a total knee arthroplasty in place. The components are in the usual position and are unchanged. There is no periprosthetic fracture or surrounding abnormal lucency. There is no effusion. The surrounding soft tissues are normal. XR/XR knee RT 2V IMPRESSION: Right total knee arthroplasty without complication by x-ray and unchanged Electronically signed by: Jesus Barrios MD 08/16/2024 10:24 PM [facility] JUARES
== END 2024-08-11 14:58 | disposition home or self-care (01) ==
LOC: HO.XRAY 14:57
PROVIDERS: PCP General Practice; Visit Provider Internal Medicine
DX: G89.4 Chronic pain syndrome (principal); Z96.651 Presence of right artificial knee joint
CPT/HCPCS: 73560

== ENCOUNTER 2024-10-12 17:15 | Emergency (ER) | payer MEDICAID, SELFPAY ==
[2024-10-12 17:25] VITALS: BP 130/82; PULSE 101; O2SAT 95
[2024-10-12 17:28] VITALS: BP 187/112; PULSE 112; RESP 18; TEMP 36.7; O2SAT 95; BMI 32.4
--- NOTE | 2024-10-12 17:38 | ED_ITS ---
HPI - Headache General Chief Complaint: Headache Stated Complaint: headache R arm pain, r side blurry vision Time Seen by Provider: 10/12/24 17:27 Source: patient Mode of arrival: EMS Limitations: no limitations History of Present Illness ED Provider: Dr. Wolf Ellington HPI Narrative: 64-year-old female with a history of hypertension, asthma, depression, fibromyalgia, chronic pain syndrome, chronic kidney disease, anemia and migraines who presents emergency department for evaluation of 2 weeks of sharp right-sided head and neck pain which was intermittent but he has been constant over the past 2 days. She states that there was a constant sharp component which will increase in intensity for seconds to minutes, the pain is worse if she moves her head. Patient states she does have photophobia and phonophobia associated with the headache. She also states that she was had blurred vision in both eyes which is intermittent. She denied fever but states she did have chills. She states that since the headache is become constant she was had right-sided chest pain which she describes as a pressure-like pain and right arm pain. She had associated shortness of breath but no dyspnea on exertion. Patient does have migraine headaches but she states that this pain is different than her usual migraine pain but she often does get photophobia and phonophobia with her migraine syndrome. Related Data Home Medications ?Medication ?Instructions ?Recorded ?Confirmed acetaminophen 650 mg 2 tab PO Q8H PRN pain 10/11/22 05/15/24 tablet,extended release lisinopril 40 mg tablet 1 tab PO DAILY 10/11/22 05/15/24 metoprolol succinate 25 mg 1 tab PO DAILY 10/11/22 05/15/24 tablet,extended release 24 hr sumatriptan succinate 25 mg tablet 25 mg PO DAILY PRN Migraine 10/11/22 05/15/24 Headache celecoxib 50 mg capsule 50 mg PO DAILY 05/08/23 05/15/24 duloxetine 60 mg capsule,delayed 60 mg PO DAILY 02/09/24 05/15/24 release trazodone 100 mg tablet 100 mg PO BEDTIME 02/09/24 05/15/24 albuterol sulfate 90 mcg/actuation 2 puff inhalation Q4-6H PRN 05/15/24 05/15/24 aerosol inhaler (Ventolin HFA) wheezing multivitamin-ferrous 1 tab PO QAM 05/15/24 05/15/24 fumarate-folic acid 18 mg-400 mcg tablet (Tab-A-Iraj Multivitamin w-iron) Previous Rx's ?Medication ?Instructions ?Recorded cefuroxime axetil 500 mg tablet 500 mg PO BID #12 tabs 05/20/24 diphenhydramine HCl 25 mg capsule 50 mg (2 x 25 mg) PO TID PRN 08/06/24 (Benadryl) allergic reaction #14 caps diphenhydramine HCl 25 mg capsule 50 mg (2 x 25 mg) PO Q6H PRN 10/12/24 headache, nausea, vomiting #20 caps metoclopramide HCl 10 mg tablet 10 mg PO Q6H PRN nausea and 10/12/24 (Reglan) vomiting #14 tabs morphine 15 mg immediate release 15 mg PO Q6H PRN pain #10 tabs 10/12/24 tablet Allergies Allergy/AdvReac Type Severity Reaction Status Date / Time buspirone [From BuSpar] Allergy Mild Tongue Verified 10/12/24 17:41 Swelling, dizziness melatonin Allergy Itching Verified 10/12/24 17:41 ibuprofen [From Motrin] AdvReac Mild Rash, HTN Verified 10/12/24 17:41 Review of Systems 2 Review of Systems: Yes all other systems are reviewed and are negative PMFSH Past Medical History Medical History Cellulitis of right lower extremity Fibromyalgia Chronic pain syndrome Neurogenic bladder, NOS Chronic kidney disease, stage 3 Hypertension Anemia Depression Cervical cancer Breast pain Back pain with right-sided radiculopathy Asthma Recurrent cellulitis of lower extremity History of cervical cancer Dyspnea on exertion HTN (hypertension) Anemia Migraines Arthritis Fibromyalgia, primary Surgical History History of right knee joint replacement H/O: hysterectomy Social History Social History Household Members: Other Household Members Other:: sister Housing: House Do you presently have visiting nurse or other home services: Yes (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 Patient Tobacco Use Status: Current everyday Tobacco user Tobacco use type: Cigarette Cigarette Packs Per Day: 0.4 Cigarettes Per Day: 5 Years Smoked: 40 Smoked in Last 30 Days: No e-Cigarette/Vaping Use: Never Used Second Hand Smoke Exposure: No Use of substances other than those prescribed or required for medical reasons: No Advance Directives: Yes Advance Directives on File: Yes Advance Directives Date on File: 05/21/24 Do you have a plan to hurt others: No Plan service: No Current occupational status: unemployed Physical Exam 2 Vital Signs: Vital Signs: Last Vital Signs Temp 98.1 F 10/12/24 21:34 Pulse 95 10/12/24 21:34 Resp 18 10/12/24 21:34 BP 130/70 10/12/24 21:34 Pulse Ox 99 10/12/24 21:34 O2 Del Method Room Air 10/12/24 21:34 BMI result Body Mass Index 32.4 Exam: General: Awake, alert in no distress , while I was talking to the patient, she had an episode of severe sharp pain to her right head, right face and right neck which lasted less than 1 minute and then resolved Head: Normocephalic, atraumatic, no tenderness palpation over the temporal regions EENT: PERRL, Lids normal, sclera normal, conjunctiva normal, nose normal , ears normal, throat without erythema or exudates Neck: Supple, no adenopathy, no C-spine tenderness but she does have tenderness palpation over her trapezius muscles bilateral right greater than left Lung: breath sounds symmetric, no wheezing, rales or rhonchi Chest: symmetric movement, nontender Heart: regular rate and rhythm, normal S1, S2 no murmurs or rubs Abdomen: soft, non-tender, nondistended, normal bowel sounds Back: no vertebral tenderness, no CVAT Extremities: no deformities, moves all extremities symmetrically Neuro: Awake, alert, oriented, normal speech, cranial nerves intact, moves all extremities symmetrically Psych: Pleasant, cooperative Medications Administered Discontinued Medications Generic Name Dose Route Start Last Admin Trade Name Zonia PRN Reason Stop Dose Admin Diphenhydramine HCl 50 mg 10/12/24 17:39 10/12/24 18:04 Diphenhydramine Hcl 50 Mg/Ml Vial IVPUSH 10/12/24 17:40 50 mg ONCE STA Administration Metoclopramide HCl 10 mg 10/12/24 17:39 10/12/24 18:04 Metoclopramide Hcl 10 Mg/2 Ml Vial IVPUSH 10/12/24 17:40 10 mg ONCE STA Administration Morphine Sulfate 4 mg 10/12/24 17:39 10/12/24 18:04 Morphine Sulfate 4 Mg/Ml Cartridge IVPUSH 10/12/24 17:40 4 mg ONCE STA Administration Protocol Morphine Sulfate 4 mg 10/12/24 20:45 10/12/24 20:53 Morphine Sulfate 4 Mg/Ml Cartridge IVPUSH 10/12/24 20:46 4 mg ONCE STA Administration Protocol Ondansetron HCl 4 mg 10/12/24 18:28 10/12/24 18:46 Ondansetron Hcl 4 Mg/2 Ml Vial IVPUSH 10/12/24 18:29 4 mg ONCE ONE Administration Ondansetron HCl 4 mg 10/12/24 20:45 10/12/24 20:53 Ondansetron Hcl 4 Mg/2 Ml Vial IVPUSH 10/12/24 20:46 4 mg ONCE ONE Administration Medical Decision Making Medical Decision Making MDM Narrative: 64-year-old female with a history of hypertension, asthma, depression, fibromyalgia, chronic pain syndrome, chronic kidney disease, anemia and migraines who presents emergency department for evaluation of 2 weeks of sharp right-sided head and neck pain which was intermittent but he has been constant over the past 2 days, associated with chest pain, right arm pain, intermittent blurred vision, photophobia, phonophobia, chills and shortness of breath. Pain is worse with moving her head and neck Pain is different than her usual migraine syndrome. Physical examination revealed tenderness palpation of the trapezius muscles bilaterally right greater than left, no C-spine tenderness, nonfocal neurologic exam and no tenderness palpation over her temporal regions of her head. Differential diagnosis: ?Includes but is not limited to intracranial bleed, stroke, meningitis, giant cell arteritis, a fibromyalgia flare, migraine since Course: 17:47 I did order laboratory evaluation and EKG. Patient will be treated with Reglan 10 mg IV, Benadryl 50 mg IV and morphine 4 mg IV for pain 20:46 Patient did have vomiting after getting the above treatment and was treated with Zofran 4 mg IV. The patient initially got good relief for the pain but the pain is now coming back. I ordered a 2nd dose of morphine 4 mg IV and Zofran 4 mg IV. The patient was laboratory evaluation was unremarkable . At this time I suspect that this headache is consistent with a migraine syndrome and I do not think that she needs a CT scan of the brain and I did discuss this with the patient. 21:15 The patient significantly improved after her 2nd dose of morphine and Zofran. The patient was discharged to home with prescriptions for 3 medications: morphine 15 mg, Benadryl 25 mg and Reglan 10 mg every 6 hours as needed for pain. She was given printed and verbal instructions and discharged home. Admission/Observation Consideration of admission/observation: Escalation of care including admission/observation considered (Yes) Lab Data MDM Lab Attestation statement: I reviewed the patient's lab results. My independent interpretation patient's laboratory evaluation as follows: Normocytic anemia with an H&H of 10.4 and 34. Elevated chloride 112. Elevated BUN 17. Troponin was below detectable limits. Man out 10/12/24 18:00 10/12/24 18:00 Labs: Lab Results 10/12/24 Range/Units 18:00 WBC 9.4 (4.8-10.8) X10*3/uL RBC 4.32 D (4.20-5.50) X10*6/uL Hgb 10.4 L D (12.0-16.0) g/dl Hct 34.0 L D (37.0-47.0) % MCV 78.7 L (80.0-98.0) fL MCH 24.1 L (27.0-33.0) pg MCHC 30.6 L (31.0-35.0) g/dl RDW 18.4 H (11.0-16.0) % Plt Count 264 D (160-400) X10*3/uL MPV 11.2 (9.4-12.3) fL Immature Gran % (Auto) 0.3 (0.0-0.4) % Neut % (Auto) 52.4 (45-73) % Lymph % (Auto) 36.9 (20-40) % [place] % (Auto) 6.6 (2-11) % Eos % (Auto) 3.4 (0-4) % Baso % (Auto) 0.4 (0-2) % Lymph # (Auto) 3.5 (1.2-4.9) X10*3/uL [place] # (Auto) 0.6 (0.1-1.2) X10*3/uL Eos # (Auto) 0.3 (0.0-0.4) X10*3/uL Baso # (Auto) 0.0 (0.0-0.2) X10*3/uL Abs Immat Gran (auto) 0.03 (0.00-0.03) X10*3/uL Absolute Neuts (auto) 4.9 (2.0-8.3) x10*3/uL Absolute Nucleated RBC 0.000 (0.0-0.012) X10*3/uL Nucleated RBC % (auto) 0.0 (0.0-0.2) /100WBC ESR 37 H (0-20) MM/HR APTT 30.0 (26.0-36.8) SEC Sodium 143 (135-145) mmol/L Potassium 3.6 (3.3-5.1) mmol/L Chloride 112 H (96-108) mmol/L Carbon Dioxide 25 (22-29) mmol/L Anion Gap 10 L (12-20) BUN 17 H (9-16) mg/dL Creatinine 0.77 (0.5-1.4) mg/dL Estim Creat Clear Calc 80.2 Estimated GFR > 60 Random Glucose 106 (60-115) mg/dL Calcium 9.2 (8.4-10.2) mg/dL Magnesium 2.0 (1.6-2.6) mg/dL Total Bilirubin 0.1 (0.0-1.0) mg/dL AST 21 (5-31) U/L ALT 19 (0-31) U/L Alkaline Phosphatase 96 (39-117) U/L Troponin I High Sens < 2.7 (<3.5-17.0) ng/L C-Reactive Protein 0.48 (< or = 0.50) mg/dL Total Protein 7.7 (6.5-8.0) g/dL Albumin 4.1 (3.5-5.0) g/dL Lipase 31 (8-78) U/L Independent Interpretation I performed an independent interpretation of an: EKG Interpretation: My independent interpretation patient's 12 EKG done at 18:47 hours is as follows: Normal sinus rhythm rate of 65, normal [place] interval, QRS duration, QTC interval, no ST segment elevation, no ST segment depression, no PACs, no PVCs. When compared to EKG dated 02/08/2024 there are no significant changes. Independent Historian Clinical information obtained from an independent historian. History obtained from or confirmed by: Spouse Prescription Management I considered prescription management with: Pain Medication and Other (Anti migraine medication: Reglan) Chronic Conditions Patient?s care impacted by: Hypertension and Other (Fibromyalgia, migraine syndrome) Discharge Plan Discharge Clinical Impression: Acute neck pain Headache, migraine Qualifiers: Intractability: not intractable Patient Disposition: Home, Self-Care Additional Instructions: Your blood work was unremarkable. Your 12 EKG was normal. Your symptoms are consistent with a migraine. I want you to take the following 3 medications together every 6 hours as needed for headache, nausea or vomiting. Reglan (metoclopramide) in 10 mg, 1 pill Benadry (diphenhydramine) l 25 mg, 2 pills Morphine 15 mg pills, 1 pill After you take these medications, lie down in a dark quiet room and try to fall asleep. ?These medications will make you sleepy, do not drive or work after taking these medications. Follow-up with your doctor in 2 days. Please return to the emergency department if your symptoms get worse or if you develop any symptoms that are concerning to you. Morphine is a narcotic medication and can be addicting. If you are concerned about addiction you can ask the pharmacist for less pills or do not get this prescription filled. Prescriptions: New diphenhydramine HCl 25 mg capsule 50 mg PO Q6H PRN (Reason: headache, nausea, vomiting) Qty: 20 0RF morphine 15 mg tablet 15 mg PO Q6H PRN (Reason: pain) Qty: 10 0RF Rx Instructions: Patient may request partial fill; Partial Fill upon patient request. metoclopramide HCl [Reglan] 10 mg tablet 10 mg PO Q6H PRN (Reason: nausea and vomiting) Qty: 14 0RF No Action sumatriptan succinate 25 mg tablet 25 mg PO DAILY PRN (Reason: Migraine Headache) Rx Instructions: MRX1 2 hours later if needed metoprolol succinate 25 mg tablet extended release 24 hr 1 tab PO DAILY lisinopril 40 mg tablet 1 tab PO DAILY acetaminophen 650 mg tablet extended release 2 tab PO Q8H PRN (Reason: pain) celecoxib 50 mg capsule 50 mg PO DAILY albuterol sulfate [Ventolin HFA] 90 mcg/actuation HFA aerosol inhaler 2 puff INHALATION Q4-6H PRN (Reason: wheezing) Tab-A-Iraj Multivitamin w-iron 18-400 mg-mcg tablet 1 tab PO QAM cefuroxime axetil 500 mg tablet 500 mg PO BID Qty: 12 0RF diphenhydramine HCl [Benadryl] 25 mg capsule 50 mg PO TID PRN (Reason: allergic reaction) Qty: 14 0RF trazodone 100 mg tablet 100 mg PO BEDTIME duloxetine 60 mg capsule,delayed release(DR/EC) 60 mg PO DAILY Interventions: ED Discharge Assessment Last Done: 10/12/24 21:34 Discharge Date/Time: 10/12/24 21:34 Print Language: Greek
--- NOTE | 2024-10-12 17:39 | ECG_ITS ---
Test Reason : headache Blood Pressure : */* mmHG Vent. Rate : 65 BPM Atrial Rate : 65 BPM P-R Int : 160 ms QRS Dur : 90 ms QT Int : 426 ms P-R-T Axes : 50 -3 44 degrees QTcB Int : 443 ms Normal sinus rhythm Minimal voltage criteria for LVH, may be normal variant ( R in aVL ) Borderline ECG When compared with ECG of 08-Feb-2024 22:14, Vent. rate has decreased by 36 bpm Referred By: Wolf Ellington Electronically Signed By: KINA ROJAS
--- OUTSIDE RECORDS SUMMARY | 2024-10-12 17:57 | XMS_ITS | Encounter Summary ---
Author Organization [employer] Address [address] [place] [address] Care Team Providers Care Fabric Worker Fitter Name Role Phone Lilly Cowart MD Primary Care Provider [phone] Reason for Visit * Reason Onset Date Comments Durable Medical Equipment 01/11/2024 Encounter Details Date Type Department Care Team ([facility] st Contact Info) Description 01/11/2024 Telephone [facility] [address] [place] [address] Lilly Cowart MD [address] [place] [address] Durable Medical Equipment Social History Tobacco Use Types Packs/Day Years Used Date Smoking Tobacco: Former Cigarettes Q uit: 09/03/2022 Smokeless Tobacco: Never Comments:3 cigarettes a day Alcohol Use Standard Drinks/Week Comments Never 0 (1 standard drink = 0.6 oz pur e alcohol) Depression Answer Date Recorded Patient Health Questionnaire-9 Score 8 12/27/2023 Patient Health Questionnaire-9 Score 8 12/27/2023 Last PHQ-9: Questionnaire Data Not on file 0 12/27/2023 Housing Stability Answer Date Recorded What is your housing situation today? I have valentine cee 12/27/[address] you li ve. Do you have problems with any of the following? None of the above 12/27/2023 Food Insecurity Answer Date Recorded Within the past 12 months, y ou worried that your food would run out before you got money to buy more: Never True 12/27/2023 Within the past 12 months,th e food you bought just didn't last and you didn't have enough money to get more: Never True 07/2024 Transportation Answer Date Recorded In the past 12 months, has l ack of transportation kept you from medical appts, meetings, work or from getting things needed for daily living? No 12/27/2023 Utilities Answer Date Recorded In the past 12 months, has t he electric, gas, oil or water company threatened to shut off services in your home? No 12/27/2023 Depression Answer Date Recorded Patient Health Questionnaire-2 Score 2 12/27/2023 Comments Unknown Sex and Gender Information Value Date Recorded Sex Assigned at Female 07/17/2022 10:14 AM EDT Legal Sex Female 10:14 AM EDT Gender Identity Female 07/17/2022 10:14 AM EDT Sexual Orientation Straight 07/17/2022 10 :14 AM EDT documented as of this encounter Miscellaneous Notes * Telephone Encounter - Anju Michelle - 01/11/2024 1:59 PM EDT TC from pt requesting shower chair and a shower grab bar. documented in this encounter Plan of Treatment Not on file documented as of this encounter Visit Diagnoses Not on filedocumented in this encounter Additional Health Concerns Assessment Noted Time PHQ-9 Depression Total Score: 8 12/27/19 24 3:25 PM EDT documented as of this encounter Care Teams Fabric Worker Fitter Relationship Specialty Start Date End Date Lilly Cowart MD [address] [place] [id number] PCP - General Family Medicine 11/16/21 documented as of this encounter
--- OUTSIDE RECORDS SUMMARY | 2024-10-12 17:57 | XMS_ITS | Encounter Summary ---
Author Organization [facility] Address [address] [place] [address] Care Team Providers Care Baseball Hand Sewer Name Role Phone Lilly Cowart MD Primary Care Provider [phone] Encounter Details Date Type Department Care Team (Late st Contact Info) Description 05/25/2023 Abstract [facility] [address] [place], [place] [phone] Lilly Cowart MD [address] [place], [place] [id number] Social History Tobacco Use Types Packs/Day Years Used Date Smoking Tobacco: Former Cigarettes Q uit: 09/03/2022 Smokeless Tobacco: Never Comments:3 cigarettes a day Alcohol Use Standard Drinks/Week Comments Never 0 (1 standard drink = 0.6 oz pur e alcohol) Depression Answer Date Recorded Patient Health Questionnaire-2 Score 2 11/22/2022 Comments Unknown Sex and Gender Information Value Date Recorded Sex Assigned at Female 07/17/2022 10:14 AM EDT Legal Sex Female 10:14 AM EDT Gender Identity Female 07/17/2022 10:14 AM EDT Sexual Orientation Straight 07/17/2022 10 :14 AM EDT documented as of this encounter Plan of Treatment Not on file documented as of this encounter Visit Diagnoses Not on filedocumented in this encounter Care Teams Baseball Hand Sewer Relationship Specialty Start Date End Date Lilly Cowart MD [address] [place], [place] [phone] PCP - General Family Medicine 11/16/21 documented as of this encounter
--- OUTSIDE RECORDS SUMMARY | 2024-10-12 17:57 | XMS_ITS | Encounter Summary ---
Author Organization [employer] Address [address] [facility] [address] [facility] [address] [place] [address] Care Team Providers Care Station Cook Name Role Phone Lilly Cowart MD Primary Care Provider [phone] Reason for Visit * Reason Comments Med Refill Encounter Details Date Type Department Care Team (Late st Contact Info) Description 10/29/2022 Refill [facility] [address] [place] [address] Bouchra Pacheco MD [address] [place] [address] Cellulitis of right lower limb Social History Tobacco Use Types Packs/Day Years Used Date Smoking Tobacco: Former Cigarettes Q uit: 09/03/2022 Smokeless Tobacco: Never Alcohol Use Standard Drinks/Week Comments Never 0 (1 standard drink = 0.6 oz pur e alcohol) Comments Unknown Sex and Gender Information Value Date Recorded Sex Assigned at Female 07/17/2022 10:14 AM EDT Legal Sex Female 10:14 AM EDT Gender Identity Female 07/17/2022 10:14 AM EDT Sexual Orientation Straight 07/17/2022 10 :14 AM EDT documented as of this encounter Plan of Treatment Not on file documented as of this encounter Visit Diagnoses Diagnosis Cellulitis of right lower limb documented in this encounter Care Teams Station Cook Relationship Specialty Start Date End Date Lilly Cowart MD [address] [place] [address] PCP - General Family Medicine 11/16/21 documented as of this encounter
--- OUTSIDE RECORDS SUMMARY | 2024-10-12 17:57 | XMS_ITS | Clinical Summary ---
Author Organization [employer] Address [address] [place] [address] 7[address] [place] [address] Care Team Providers Care Police Aide Name Role Phone Lilly Cowart MD Primary Care Provider [phone] Allergies Active Allergy Reactions Criticality Noted Date Comments Buspirone Other reaction(s): tongue tingles, unclear Butalbital 07/28/2013 Other reaction(s): dizziness & headache got worse Ibuprofen Swelling Other reaction(s): Zomig Paroxetine 05/05/2014 Other reaction(s): headache, tongue tingling Zolmitriptan 09/04/2022 Medications Heating Pads pads use for low back pain 2 Active Blood Pressure Monitoring (Omron 3 Series BP Monitor) device USE TO CHECK BLOOD PRESSURE DAILY DIRECTED 2 Active Senna-Time 8.6 MG tablet TAKE 1 TABLET BY MOUTH EVERY DAY AT BEDTIME NEEDED FOR CONSTIPATION 2 Active polyethylene glycol, PEG, 3350 (Glycolax) 17 GM/SCOOP powderIndication s:Constipation, unspecified constipation type TAKE 17 GM MIXED IN 8 OUNCES OF WATER ONCE DAILY 510 g 3 3 Active nicotine (Nicoderm, Step 2) 14 MG/24HR patch APPLY 1 PATCH TOPICALLY TO THE SKIN DAILY IN THE MORNING *DO NOT SMOKE WHILE USING PATCH* 30 patch 1 3 Active Petrolatum 42 % ointment Apply topically if needed. 3 Active Metamucil Smooth Texture 58.6 % powder MIX AND DRINK 1.7 GM BY MOUTH DAILY 3 Active SUMAtriptan (Imitrex) 25 MG tablet TAKE 1 TABLET BY MOUTH AT ONSET OF MIGRAINE. MAY REPEAT ONCE AFTER 2 HOURS IF NEEDED 18 tablet 7 4 Active Multiple Vitamins-Mineral s (CertaVite/Antio xidants) tabletIndication s:Malignant neoplasm of endocervix (CMS/HCC) TAKE 1 TABLET BY MOUTH EVERY MORNING 90 tablet 3 4 Active DULoxetine (Cymbalta) [address] capsule Take 1 capsule (60 mg) by mouth in the morning. Do not crush or chew. 90 capsule 3 4 025 Active albuterol (Ventolin HFA) 108 (90 Base) MCG/ACT inhalerIndicatio ns:Moderate persistent asthma without complication INHALE 2 PUFFS BY MOUTH EVERY 4 TO 6 HOURS NEEDED FOR WHEEZING OR SHORTNESS OF BREATH 18 g 11 4 Active lisinopril 40 MG tablet TAKE 1 TABLET BY MOUTH ONCE DAILY 90 tablet 3 4 Active melatonin 10 MG tablet Take 1 tablet (10 mg) by mouth if needed at bedtime (insomnia). 90 tablet 3 4 Active Magnesium Citrate 200 MG tablet TAKE 1/2 TABLET BY MOUTH TWICE DAILY FOR PAIN 4 Active gabapentin (Neurontin) 300 MG capsule TAKE 1 CAPSULE BY MOUTH TWICE DAILY FOR PAIN 4 Active riboflavin (Vitamin B-2) 400 MG tablet TAKE 1 TABLET BY MOUTH EVERY DAY FOR PAIN 4 Active celecoxib (CeleBREX) 50 MG capsule TAKE 1 CAPSULE BY MOUTH EVERY MORNING 90 capsule 1 4 Active acetaminophen (Tylenol 8 Hour) 650 MG ER tabletIndication s:Other chronic pain TAKE 2 TABLETS BY MOUTH EVERY 8 HOURS NEEDED FOR PAIN SWALLOW WHOLE WITH WATER, DO NOT BREAK, CRUSH, DISSOLVE OR CHEW 100 tablet 3 4 Active clindamycin (Cleocin) 300 MG capsule TAKE 1 CAPSULE BY MOUTH EVERY 6 HOURS 4 Active ferrous sulfate 324 (65 Fe) MG EC tablet Take 324 mg by mouth Once per day. 4 Active Multiple Vitamins-Iron (Tab-A-Iraj/Iron /Beta Carotene) tablet Take 1 tablet by mouth in the morning. 4 Active melatonin 5 MG tablet TAKE 2 TABLETS BY MOUTH EVERY DAY AT BEDTIME NEEDED FOR SLEEP 4 Active metoprolol succinate XL (Toprol-XL) 25 MG 24 hr tablet TAKE 1 TABLET BY MOUTH EVERY DAY 90 tablet 4 4 Active mineral oil-hydrophil petrolat ointment Topical OintmentIndicati ons:Cellulitis of right lower limb Apply topically if needed (dry skin). 454 g 3 4 Active Neomycin-Polymyx in-HC 1 % solution Administer 3 drops into affected ear(s) 3 times daily. 10 mL 4 Active triamcinolone (Kenalog) 0.1 % cream Apply topically if needed in the morning and at bedtime (pain and swelling). 30 g 2 4 Active oxyCODONE (Roxicodone) 5 MG immediate release tabletIndication s:Recurrent cellulitis of lower extremity,Pain and swelling of lower extremity, right Take 1-2 tablets (5-10 mg) by mouth at bedtime. 30 tablet 4 Active penicillin v potassium (Veetid) 500 MG tabletIndication s:Recurrent cellulitis of lower extremity TAKE 1 TABLET BY MOUTH EVERY DAY FOR GBS PROPHYLAXIS 30 tablet 1 4 Active Active Problems Problem Noted Date Diagnosed Date Impaired mobility 01/17/2023 Assessment & Plan (01/17/2023 8:52 AM EDT): Walk with walker Grab bars and shower ordered for safety and mobility assistance in the home Pain and swelling of lower extremity, right 10/19 Assessment & Plan (07/06/2024 3:12 PM EDT): Will refer to ID to discuss need for prophy, place on PCN for now, which is that previous course that they recommended Will also have patient see ortho at [facility] to discuss washout of R TKA arthrosis? Oxycodone 5mg for nighttime x 30 days, use sparingly Assessment & Plan (11/09/2022 11:47 AM EST): Pt admitted to [facility] recently as a result. Work up did not elucidate the etiology of her Sepsis/Right LE cellulitis. No evidence of septic joint. On exam today she clearly has unilateral Right Lower extremity swelling, non pitting . Etiology ? Pt states this is new. She does have a Hx of a cervical malignancy. Plan: Will extend the course of Abx for 1 more week. Repeat CBC. I do not see recent Blood Cx done but given that pt has been on broad spectrum Abx these might not be helpful at the moment. Will obtain a CT of her abdomen and Pelvis to r/o an obstructive process that could be causing lymphedema. Will refer to ID specialist for consideration of question of extended need for Abx. Chronic pain of right knee 11/09/2022 Assessment & Plan (11/09/2022 11:49 AM EST): Referred back to [facility] who did her TKR Right lower quadrant abdominal pain 11/09/2022 Pelvic pain in female 11/09/2022 Assessment & Plan (11/09/2022 11:50 AM EST): Towards the end of the conversation pt states she has been c/o right sided pelvic discomfort, no discharge. CT of pelvis to r/o a pelvic etiology in a patient with Hx of cervical malignancy Cellulitis of right lower extremity 09/26/2022 Assessment & Plan (01/17/2023 8:53 AM EDT): Resolved, skin has healed and no longer swollen compared to L CT abd/pelvis negative for intraabdominal pathology as causative agent for swelling Assessment & Plan (11/09/2022 11:49 AM EST): Will extend the course of Abx given c/o recurrent right lower extremtiy tension and mild redness, while we rule out lymphedema Anemia 09/13/2022 Back pain 09/13/2022 Assessment & Plan (12/31/2023 9:17 AM EDT): Will prescribe short-term (30 days) nighttime supply of oxycodone for sleep Continue Celebrex 50mg daily Increase Cymbalta from 30mg to 60mg for OA and fibromyalgia To walk as much as tolerated Pain mgmt for ANDRE or other interventions Breast pain 09/13/2022 Class 1 obesity 09/13/2022 Dyspnea on exertion 09/13/2022 Fever 09/13/2022 History of total knee arthroplasty 09/13/2022 Assessment & Plan (01/17/2023 8:46 AM EDT): Will call [facility] to obtain notes from recent visit Pt not interested in further PT or surgery for OA Must maximize OA therapy-- Celebrex 50mg daily, Duloxetine 30mg (increase from 20mg) Explained that opioids are not recommended for long-term pain mgmt Malignant neoplasm of cervix 09/13/2022 Overview (09/13/2022): status post hysterectomy 1995 Assessment & Plan (12/31/2023 9:03 AM EDT): Managed surgically, no further followup needed as she is more than 20 years after her surgery Primary osteoarthritis of left knee 09/13/2022 Asthma 07/30/2015 Assessment & Plan (12/31/2023 9:04 AM EDT): CAMILA prn Atopic conjunctivitis 07/30/2015 Constipation 07/30/2015 Depression 07/30/2015 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 Initial goal of 30 min walk 3-5x/week. Increase as tolerated. - low-sodium diet (goal: <2g/day) and heart healthy diet such as DASH to reduce BP and prevent ASCVD. - Home BP monitoring 1-2 x day with goal of <140/90. - Seek immediate medical attention for chest pain, palpitations, SOB, syncope, or sudden changes in mental status. - Do not change or discontinue current prescriptions without first consulting health care provider Assessment & Plan (01/17/2023 8:45 AM EDT): Not at goal Not checking at home Recommend med compliance and daily monitoring, call us if >160/100 at home for three consecutive measurements Cr 0.8, egFR 82 - Aerobic exercise to reduce BP. Initial goal of 30 min walk 3-5x/week. Increase as tolerated. - low-sodium diet (goal: <2g/day) and heart healthy diet such as DASH to reduce BP and prevent ASCVD. - Home BP monitoring 1-2 x day with goal of <140/90. - Seek immediate medical attention for chest pain, palpitations, SOB, syncope, or sudden changes in mental status. - Do not change or discontinue current prescriptions without first consulting health care provider Migraine without aura, not refractory 07/30/2015 Neurogenic bladder 07/30/2015 Overweight 07/30/2015 Smoker 07/30/2015 Encounters Date Type Department Care Team Description 09/11/2024 Refill [facility] [address] [place] [address] Lilly Cowart MD Recurrent cellulitis of lower extremity 08/27/2024 Refill [facility] [address] [place] [address] Lilly Cowart MD 08/11/2024 Orders Only [facility] External Provider, [facility] 08/01/2024 Telephone [facility] [address] [place] [address] Lilly Cowart MD Referral 07/28/2024 Telephone [facility] [address] [place] [address] Lilly Cowart MD callback requested 07/22/2024 Refill [facility] [address] [place] [address] Lilly Cowart MD Recurrent cellulitis of lower extremity; Pain and swelling of lower extremity, right 07/15/2024 Telephone [facility] [address] [place] [address] Lilly Cowart MD 07/15/2024 Telephone [facility] [address] [place] [address] Lilly Cowart MD from Last 3 Months Immunizations Name Administration Dates Next Due DTaP 06/30/2008 Influenza injectable quadriv alent IIV4 with preservative 07/13/2016,07/30/2015 Influenza injectable quadriv alent preservative free 11/23/2014 Influenza, IIV3, injectable 12/03/2016,1 ,07/30/2015,11/23,06/22/2011,05/24/2010,06/30/2008 ,07/08/2002 Influenza, Split (incl. justin [place] surface antigen) 07/28/2013,06/27/2012 Influenza, seasonal, injecta ble, preservative free 12/03/2016 Pneumococcal Polysaccharide PPSV23 10/01/2013, TD (adult), 2 Lf tetanus tox oid, preservative free, adsorbed 06/30/2008,11/14/1996 Td (adult), unspecified 06/30/2008,11/14/1996 Tdap 03/21/2017,06/27/2012 Social History Tobacco Use Types Packs/Day Years Used Date Smoking Tobacco: Former Cigarettes Q uit: 09/03/2022 Smokeless Tobacco: Never Tobacco Cessation:Counseling Given: Not Answered Comments:3 cigarettes a day Alcohol Use Standard [...] Orientation Straight 07/17/2022 10 :14 AM EDT Last Filed Vital Signs Vital Sign Reading Time Taken Comments Blood Pressure 142/89 07/01/2024 4:16 PM EDT Pulse 83 07/01/2024 4:16 PM EDT Temperature 36.7 ??C (98 ??F) 07/01/2024 4:16 PM EDT Respiratory Rate 20 07/01/2024 4:16 PM EDT Oxygen Saturation 100% 07/01/2024 4:16 PM EDT Inhaled Oxygen Concentration - - Weight 82.6 kg (182 lb 3.2 oz) 07/01/2024 4:16 P M EDT Height 162.6 cm (5' 4 ) 07/01/2024 4:16 PM EDT Body Mass Index 31.27 07/01/2024 4:16 PM EDT Plan of Treatment Health Maintenance Due Date Last Done Comments CT Colonography 1962 Colonoscopy 1962 Colorectal Cancer Screening 1962 FIT DNA/Cologuard 1962 FIT 1962 FOBT 1962 HIV Screening 1962 Lipid Panel 1962 Sigmoidoscopy 1962 Alcohol/Substance Use Screening 1974 Hepatitis C Screening 1980 Pap Smear 1983 HPV/Cotest 1992 Zoster Vaccines (1 of 2) 2012 Pneumococcal Vaccine: Pediatrics (0 to 5 Years) and At-Risk Patients (6 to 64 Years) (2 of 2 - PCV) 10/01/2014 10/01/2013, 10/30/2012 RSV Patients and Patients Aged 60 years or older (1 - Risk 60-74 years 1-dose series) 2022 COVID-19 Vaccine (3 - season) 2024 09/30/2021, 09/08/2021 Influenza Vaccine (#1) 2024 7, 12/03/2016, 07/13/2016, Additional history exists Depression Screening 12/26/2024 12/27/2023, 12/27/19 24 SDOH Screening 12/26/2024 12/27/2023 Mammogram 01/21/2025 01/22/2024 Tobacco Screening 07/01/2025 07/01/2024 DTaP/Tdap/Td Vaccines (5 - Td or Tdap) 03/21/2027 03/21/2017, 06/27/2012, 06/30/2008, Additional history exists Cervical Cancer Screening Discontinued HIB Vaccines Aged Out No longer eligi ble based on patient's age to complete this topic HPV Vaccines Aged Out No longer eligi ble based on patient's age to complete this topic Hepatitis A Vaccines Aged Out No long er eligible based on patient's age to complete this topic Hepatitis B Vaccines Aged Out No long er eligible based on patient's age to complete this topic IPV Vaccines Aged Out No longer eligi ble based on patient's age to complete this topic Meningococcal Vaccine Aged Out No zane jose francisco eligible based on patient's age to complete this topic RSV under 20 months Aged Out No longe r eligible based on patient's age to complete this topic Rotavirus Vaccines Aged Out No longer eligible based on patient's age to complete this topic Procedures Procedure Name Priority Date/Time Associated Diagnosis Comments XR KNEE 1-2 VIEWS RIGHT Routine 08/11/2024 3:11 PM EST AMB REFERRAL TO ORTHOPAEDIC SURGERY Routine 07/17/2024 Recurrent cellulitis of lower extremity History of total right knee replacement BI MAMMOGRAM SCREENING TOMOSYNTHESIS BILATERAL Routine 01/22/2024 2:21 PM EDT Encounter for screening mammogram for malignant neoplasm of breast from Last 3 Months or Most Recently Relevant to Health Maintenance Results * XR Knee 1-2 Views Right (08/11/2024 3:11 PM EST) Anatomical Region Laterality Modality Lower Extremities, Knee Right [facility] 08/11/2024 3:11 PM EST Narrative 08/16/2024 10:26 PM EST ? [facility] [facility] ?[address] ?[place] [address] ?XRay Report ? Signed ? Patient: Jesus,Nadege ?MR#: [id number] ? : 1960 ?Acct:[id number] ? Age/Sex: 64 / F ?ADM Date: 08/11/24 ? Loc: HO.XRAY ? Attending Dr: Amy Rodriguez MD ? Ordering Physician: Amy Rodriguez MD ?? Date of Service: 08/11/24 ?? Procedure(s): XR knee RT 2V ?? Accession Number(s): [id number] ? cc: Lilly Cowart; Amy Rodriguez MD ? EXAMINATION: ?? XR KNEE, RIGHT ? CLINICAL INFORMATION: ?? G89.4 - Chronic pain syndrome ? COMPARISON: ?? X-ray of the right knee 10/13/2022 ? TECHNIQUE: ?? 2 views of the right knee ? FINDINGS: ?? There is a total knee arthroplasty in place. ?? The components are in the usual position and are unchanged. ?? There is no periprosthetic fracture or surrounding abnormal lucency. ?? There is no effusion. ?? The surrounding soft tissues are normal. ? XR/XR knee RT 2V ?? IMPRESSION: ?? Right total knee arthroplasty without complication by x-ray and ?? unchanged ? Electronically signed by: ??Jesus Barrios MD ??08/16/2024 10:24 PM ?? EST RP ? Dictated By: ?Jesus Barrios MD ? Signed By: ?<Electronically signed by Jesus Barrios MD in OV> ?08/16/24 2224 ? DD/ 1511 ? TD/TT: 08/11/24 1532 ? Enrober: WG ? Procedure Note Talisha Higgins - 08/16/[address] [address] XRay Report Signed Patient: Taty Lee#: [id number] : 2Acct:[id number] Age/Sex: 64 / FADM Date: 08/11/24 Loc: [facility] Attending Dr: Amy Rodriguez MD Ordering Physician: Amy Rodriguez MD Date of Service: 08/11/24 Procedure(s): XR knee RT 2V Accession Number(s): [id number] cc: Lilly Cowart; Amy Rodriguez MD EXAMINATION: XR KNEE, RIGHT CLINICAL INFORMATION: G89.4 - Chronic pain syndrome COMPARISON: X-ray of the right knee 10/13/2022 TECHNIQUE: 2 views of the right knee FINDINGS: There is a total knee arthroplasty in place. The components are in the usual position and are unchanged. There is no periprosthetic fracture or surrounding abnormal lucency. There is no effusion. The surrounding soft tissues are normal. XR/XR knee RT 2V IMPRESSION: Right total knee arthroplasty without complication by x-ray and unchanged Electronically signed by: Jesus Barrios MD 08/16/2024 10:24 PM [facility] Dictated By: Jesus Barrios MD Signed By: <Electronically signed by Jesus Barrios MD inOV> 08/16/24 2224 DD/ 1511 TD/TT: 08/11/24 1532 Enrober: JONI [facility] External Provider IMG XR PROCEDURES Edited Result - Final * Referral to Orthopaedic Surgery (07/17/2024) Lilly Cowart MD OUTPATIENT REFERRAL ORDERABLES Final Result * BI Mammogram Screening Tomosynthesis Bilateral (01/22/2024 2:21 PM EDT) Anatomical Region Laterality Modality Breast Bilateral Mammography 01/22/2024 2:21 PM EDT Narrative 02/21/2024 1:33 PM EDT ? [facility] ? [address] ?[place] [address] ? Mammography Report ? Signed ? Patient: Jesus,Nadege ?MR#: [id number] ? : 1960 ?Acct:[id number] ? Age/Sex: 63 / F ?ADM Date: 05/07/24 ? Loc: HO.MAMMO ? Attending Dr: Lilly Cowart MD ? Ordering Physician: Lilly Cowart ?Results: 1Negative ? Date of Service: 01/22/24 ?Follow Up: 1 Year From Orig ?? inal Mammogram ? Procedure(s): MM tomosynthesis screening BI ?? Accession Number(s): [id number] ? cc: Lilly Cowart ? EXAMINATION: ?? MM SCREENING DIGITAL BREAST TOMOSYNTHESIS, BILATERAL ? CLINICAL INFORMATION: ? Screening. Asymptomatic. ? COMPARISON: ?? Mammography: This study is compared with prior exams dating back to ?? 2019. ? TECHNIQUE: ?? Digital breast tomosynthesis is performed in both the craniocaudal and ?? mediolateral oblique views along with computer-aided detection (CAD). ?? Synthesized 2D images are generated from the tomosynthesis. ? FINDINGS: ?? The breasts are almost entirely fatty (ACR BI-RADS breast composition ?? Category a). ? There are no significant masses, abnormal calcifications, or other ?? abnormalities. ? MM/MM tomosynthesis screening BI ?? IMPRESSION: ?? No mammographic evidence of malignancy. ? ASSESSMENT: ? BI-RADS BI-RADS 1 - Negative ? RECOMMENDATION: ?? Routine annual mammography screening. ? 1 year F/U ? This examination should not preclude the clinical evaluation of a ?? suspicious palpable abnormality. ? This patient's information was entered into a reminder system with a ?? target due date for their next mammogram. ? Dictated By: ?Earnestine Carson MD ? Signed By: ?<Electronically signed by Earnestine Carson MD in OV> ? 02/21/24 1329 ? DD/ 1421 ? TD/TT: ? Enrober: ? Procedure Note Donkristyninterpreter, Image - [facility] [address] [place] [address] Mammography Report Signed Patient: Nadege LeeMR#: [id number] : 2Acct:[id number] Age/Sex: 63 / FADM Date: 01/22/24 Loc: HO.MAMMO Attending Dr: Lilly Cowart MD Ordering Physician: Devon Cowartults: 1Negative Date of Service: 01/22/24Follow Up: 1 Year From Orig inal Mammogram Procedure(s): MM tomosynthesis screening BI Accession Number(s): [id number] cc: Lilly Cowart EXAMINATION: MM SCREENING DIGITAL BREAST TOMOSYNTHESIS, BILATERAL CLINICAL INFORMATION: Screening. Asymptomatic. COMPARISON: Mammography: This study is compared with prior exams dating back to 2019. TECHNIQUE: Digital breast tomosynthesis is performed in both the craniocaudal and mediolateral oblique views along with computer-aided detection (CAD). Synthesized 2D images are generated from the tomosynthesis. FINDINGS: The breasts are almost entirely fatty (ACR BI-RADS breast composition Category a). There are no significant masses, abnormal calcifications, or other abnormalities. MM/MM tomosynthesis screening BI IMPRESSION: No mammographic evidence of malignancy. ASSESSMENT: BI-RADS BI-RADS 1 - Negative RECOMMENDATION: Routine annual mammography screening. 1 year F/U This examination should not preclude the clinical evaluation of a suspicious palpable abnormality. This patient's information was entered into a reminder system with a target due date for their next mammogram. Dictated By: Earnestine Carson MD Signed By: <Electronically signed by Earnestine Carson MD in OV> 02/21/24 1329 DD/ 1421 TD/TT: Enrober: Lilly Cowart MD IMG BI PROCEDURES Final Result from Last 3 Months or Most Recently Relevant to Health Maintenance Insurance C3 Care Teams Police Aide Relationship Specialty Start Date End Date Lilly Cowart MD [address] [place] [address] PCP - General Family Medicine 11/16/21
--- OUTSIDE RECORDS SUMMARY | 2024-10-12 17:57 | XMS_ITS | Encounter Summary ---
Author Organization [employer] Address [address] [place] [address] Care Team Providers Care Screen And Cyclone Repairer Name Role Phone Lilly Cowart MD Primary Care Provider [phone] Reason for Visit * Reason Comments Med Refill Encounter Details Date Type Department Care Team (Late st Contact Info) Description 11/01/2022 Refill [facility] [address] [place] [address] Bouchra Pacheco MD [address] [place] [address] Cellulitis of right lower limb Social History [...] limb documented in this encounter Care Teams Screen And Cyclone Repairer Relationship Specialty Start Date End Date Lilly Cowart MD [address] [place] [address] PCP - General Family Medicine 11/16/21 documented as of this encounter
--- OUTSIDE RECORDS SUMMARY | 2024-10-12 17:57 | XMS_ITS | Encounter Summary ---
Author Organization [employer] Address [address] [facility] 7t [place] [address] Care Team Providers Care Acting Manager Name Role Phone Lilly Cowart MD Primary Care Provider [phone] Encounter Details Date Type Department Care Team (Late st Contact Info) Description 08/30/2022 Orders Only [facility] [address] [place] [address] Lindsey Salcedo LPN Social History Tobacco Use Types Packs/Day Years Used Date Smoking Tobacco: Never Assessed Comments Unknown Sex and Gender Information Value Date Recorded Sex Assigned at Female 07/17/2022 10:14 AM EDT Legal Sex Female 10:14 AM EDT Gender Identity Female 07/17/2022 10:14 AM EDT Sexual Orientation Straight 07/17/2022 10 :14 AM EDT documented as of this encounter Plan of Treatment Not on file documented as of this encounter Procedures Procedure Name Priority Date/Time Associated Diagnosis Comments URINALYSIS, COMPLETE, WITH REFLEX TO CULTURE Routine 12/07/2022 11:34 AM EDT COMPREHENSIVE METABOLIC PANEL, FASTING Routine 12/07/2022 9:57 AM EDT CBC WITH AUTO DIFFERENTIAL Routine 12/07/2022 9:57 AM EDT CBC WITH AUTO DIFFERENTIAL Routine 10/23/2022 10:53 AM EST COMPREHENSIVE METABOLIC PANEL Routine 10/23/2022 10:53 AM EST SARS COV2/INFLUENZA A/B AND RSV RNA QL NAAT Routine 10/11/2022 11:39 AM EST LACTIC ACID Routine 10/11/2022 11:39 AM EST CBC WITH AUTO DIFFERENTIAL Routine 10/11/2022 11:38 AM EST PROTHROMBIN TIME-INR Routine 10/11/2022 11:38 AM EST MAGNESIUM Routine 10/11/2022 11:38 AM EST COMPREHENSIVE METABOLIC PANEL Routine 10/11/2022 11:38 AM EST documented in this encounter Results * (ABNORMAL) Urinalysis, Complete, with Reflex to Culture (12/07/2022 11:34 AM EDT) Color Urine Yellow [facility] Appearance Urine Clear [facility] PH 6.5 5.0 - 9.0 [facility] Glucose Urine UA Negative Negative mg/dL [facility] Urine Blood Negative Negative [facility] Specific Nutrioso - Urine >=1.030(H) 1.005 - 1.025 [facility] Urine Protein Negative Neg-Trace mg/dL [facility] Urine Ketones Negative Negative mg/dL [facility] Nitrite Urine Negative Negative [facility] Leukocyte Esterase Urine Negative Negative [facility] RBC Urine 0-2 0 - 2 /HPF [facility] Urine WBC 0-5 0 - 5 /HPF [facility] Urine Squamous Epithelial Cell 0-2 0 - 2 /HPF [facility] Urine Bacteria None Seen None Seen [facility] Hyaline Casts, Urine 0-2 0 - 2 /LPF [facility] 12/07/2022 11:3 4 AM EDT 12/07/2022 11:37 AM EDT Narrative [facility] - 12/07/2022 11:45 AM EDT 1131Urine, Catheterized us [facility] External Provider LAB URI NE ORDERABLES Final Result [facility] [address] [place] [address] [phone] * (ABNORMAL) Comprehensive Metabolic Panel, Fasting (12/07/2022 9:57 AM EDT) Sodium 140 135 - 145 mmol/L [facility] Potassium 4.0 3.3 - 5.1 mmol/L [facility] Chloride 108 96 - 108 mmol/L [facility] Carbon Dioxide 21(L) 22 - 29 mmol/L [facility] Anion Gap 15 12 - 20 [facility] Urea Nitrogen (BUN) 14 9 - 16 mg/dL [facility] Creatinine, Serum 0.79 0.5 - 1.4 mg/dL [facility] Creatinine Clr Calc Pharmacy 76.2 [facility] Comment:Provided height and weight: 162.56 cm,77.564 kg.eGFR (calculated from the MDRD study equation) and eCrCl(calculated from the Cockcroft-Gault equation) are based ondifferent parameters and may not yield comparable results.If eCrCl result is absurd, please check patient'sheight/weight. Estimated Glomerular Filt Rate >60 [facility] Comment:NOTE: For -Am erican individuals, multiply the result by 1.210.Chronic Kidney Disease: Estimated GFR < 60 mL/min/1.70s5Vcsxhp Kidney Disease: Estimated GFR < 15 mL/min/1.73m2 Glucose Fasting 88 60 - 99 mg/dL [facility] Calcium 9.7 8.4 - 10.2 mg/dL [facility] Bilirubin, Total 0.4 0.0 - 1.0 mg/dL [facility] Aspartate Amino Transferase 17 5 - 31 U/L [facility] Alanine Aminotransferase 17 0 - 31 U/L [facility] Total Protein 7.3 6.5 - 8.0 g/dL [facility] Albumin Level 4.2 3.5 - 5.0 g/dL [facility] Alkaline Phosphatase 92 39 - 117 U/L [facility] 12/07/2022 9:57 AM EDT 12/07/2022 10:02 AM EDT us [facility] External Provider LAB BLO OD ORDERABLES Final Result [facility] [address] [place] [address] [phone] * (ABNORMAL) CBC auto differential (12/07/2022 9:57 AM EDT) White Blood Count 8.3 4.8 - 10.8 X10*3/uL [facility] Red Blood Count 4.29 4.20 - 5.50 X10*6/uL [facility] Hemoglobin 10.2(L) 12.0 - 16.0 g/dl [facility] Hematocrit 33.5(L) 37.0 - 47.0 % [facility] Mean Corpuscular Volume 78.1(L) 80.0 - 98.0 fL [facility] Mean Corpuscular Hemoglobin 23.8(L) 27.0 - 33.0 pg [facility] Mean Corpuscular HGB Conc 30.4(L) 31.0 - 35.0 g/dl [facility] Red Cell Distribution Width 17.2(H) 11.0 - 16.0 % [facility] Platelet Count 284 160 - 400 X10*3/uL [facility] Mean Platelet Volume 10.3 9.4 - 12.3 fL [facility] Neutrophils Percent Auto 45.6 45 - 73 % [facility] Imm Gran Pct Auto 0.2 0.0 - 0.4 % [facility] Lymphocytes Percent Auto 42.9(H) 20 - 40 % [facility] Monocytes Percent Auto 7.2 2 - 11 % [facility] Eosinophils Percent Auto 3.6 0 - 4 % [facility] Basophils Percent Auto 0.5 0 - 2 % [facility] NRBC Pct Auto 0.0 0.0 - 0.2 /100WBC [facility] Neutrophils Absolute Auto 3.8 2.0 - 8.3 x10*3/uL [facility] Imm Gran Abs Auto 0.02 0.00 - 0.03 X10*3/uL [facility] Lymphocytes Absolute Auto 3.6 1.2 - 4.9 X10*3/uL [facility] Monocytes Absolute Auto 0.6 0.1 - 1.2 X10*3/uL [facility] Eosinophils Absolute Auto 0.3 0.0 - 0.4 X10*3/uL [facility] Basophils Absolute Auto 0.0 0.0 - 0.2 X10*3/uL [facility] NRBC Abs Auto 0.000 0.0 - 0.012 X10*3/uL [facility] 12/07/2022 9:57 AM EDT 12/07/2022 10:02 AM EDT [facility] External Provider LAB BLO OD ORDERABLES Final Result [facility] [address] [place] [phone] * (ABNORMAL) Comprehensive Metabolic Panel (10/23/2022 10:53 AM EST) Sodium 139 135 - 145 mmol/L [facility] Potassium 4.3 3.3 - 5.1 mmol/L [facility] Chloride 108 96 - 108 mmol/L [facility] Carbon Dioxide 23 22 - 29 mmol/L [facility] Anion Gap 12 12 - 20 [facility] Urea Nitrogen (BUN) 18(H) 9 - 16 mg/dL [facility] Creatinine, Serum 0.87 0.5 - 1.4 mg/dL [facility] Creatinine Clr Calc Pharmacy 67.1 [facility] Comment:Provided height and weight: 162.56 cm,72.575 kg.eGFR (calculated from the MDRD study equation) and eCrCl(calculated from the Cockcroft-Gault equation) are based ondifferent parameters and may not yield comparable results.If eCrCl result is absurd, please check patient'sheight/weight. Estimated Glomerular Filt Rate >60 [facility] Comment:NOTE: For -Am erican individuals, multiply the result by 1.210.Chronic Kidney Disease: Estimated GFR < 60 mL/min/1.12l1Oidmis Kidney Disease: Estimated GFR < 15 mL/min/1.73m2 Glucose 82 60 - 115 mg/dL [facility] Calcium 9.5 8.4 - 10.2 mg/dL [facility] Bilirubin, Total 0.3 0.0 - 1.0 mg/dL [facility] Aspartate Amino Transferase 17 5 - 31 U/L [facility] Alanine Aminotransferase 23 0 - 31 U/L [facility] Total Protein 7.1 6.5 - 8.0 g/dL [facility] Albumin Level 4.1 3.5 - 5.0 g/dL [facility] Alkaline Phosphatase 104 39 - 117 U/L [facility] 10/23/2022 10:5 3 AM EST 10/23/2022 10:56 AM EST us [facility] External Provider LAB BLO OD ORDERABLES Final Result [facility] [address] [place] [phone] * (ABNORMAL) CBC auto differential (10/23/2022 10:53 AM EST) White Blood Count 9.5 4.8 - 10.8 X10*3/uL [facility] Red Blood Count 4.38 4.20 - 5.50 X10*6/uL [facility] Hemoglobin 10.5(L) 12.0 - 16.0 g/dl [facility] Hematocrit 34.5(L) 37.0 - 47.0 % [facility] Mean Corpuscular Volume 78.8(L) 80.0 - 98.0 fL [facility] Mean Corpuscular Hemoglobin 24.0(L) 27.0 - 33.0 pg [facility] Mean Corpuscular HGB Conc 30.4(L) 31.0 - 35.0 g/dl [facility] Red Cell Distribution Width 17.2(H) 11.0 - 16.0 % [facility] Platelet Count 319 160 - 400 X10*3/uL [facility] Mean Platelet Volume 10.6 9.4 - 12.3 fL [facility] Neutrophils Percent Auto 49.3 45 - 73 % [facility] Imm Gran Pct Auto 0.3 0.0 - 0.4 % [facility] Lymphocytes Percent Auto 38.4 20 - 40 % [facility] Monocytes Percent Auto 7.9 2 - 11 % [facility] Eosinophils Percent Auto 3.4 0 - 4 % [facility] Basophils Percent Auto 0.7 0 - 2 % [facility] NRBC Pct Auto 0.0 0.0 - 0.2 /100WBC [facility] Neutrophils Absolute Auto 4.7 2.0 - 8.3 x10*3/uL [facility] Imm Gran Abs Auto 0.03 0.00 - 0.03 X10*3/uL [facility] Lymphocytes Absolute Auto 3.6 1.2 - 4.9 X10*3/uL [facility] Monocytes Absolute Auto 0.8 0.1 - 1.2 X10*3/uL [facility] Eosinophils Absolute Auto 0.3 0.0 - 0.4 X10*3/uL [facility] Basophils Absolute Auto 0.1 0.0 - 0.2 X10*3/uL [facility] NRBC Abs Auto 0.000 0.0 - 0.012 X10*3/uL [facility] 10/23/2022 10:5 3 AM EST 10/23/2022 10:56 AM EST us [facility] External Provider LAB BLO OD ORDERABLES Final Result [facility] [address] [place] [phone] [phone] * SARS-CoV-2 RNA, Influenza A/B, and RSV RNA, Ql NAAT (10/11/2022 11:39 AM EST) Influenza A PCR NEGATIVE Negative [facility] Influenza B PCR NEGATIVE Negative [facility] Resp Syncy Virus RNA Qual PCR NEGATIVE Negative [facility] SARS COV2 PCR NEGATIVE Negative [facility] SARS/Flu/RSV Note See Note [facility] Comment:All test results mus t be correlated with clinical findings.Negative results do not preclude SARS-CoV2, influenza Avirus, influenza B virus and/or RSV infectionand should not be used as the sole basis for treatment orother patient management decisions. Negative results must becombined with clinical observations, patient history, andepidemiological information.This test has not been evaluated for monitoring treatment ofinfection.This test has been authorized by the FDA under an EmergencyUse Authorization (EUA) for use by authorized laboratories.Testing performed on the [employer] GeneXpert utilizingreal-time RT-PCR.All SARS CoV2 and positive influenza A/B results arereported to [facility]. 10/11/2022 11:3 9 AM EST 10/11/2022 11:44 AM EST [facility] Exter nal Provider LAB MICROBIOLOGY - GENERAL ORDERABLES Final Result Performing Organization Address [facility] Co de Phone Number [facility] [address] [place] [phone] * Lactic Acid (10/11/2022 11:39 AM EST) Lactic Acid 1.0 0.5 - 2.0 mmol/L [facility] 10/11/2022 11:3 9 AM EST 10/11/2022 11:44 AM EST [facility] External Provider LAB BLO OD ORDERABLES Final Result Performing Organization Address [facility] Co de Phone Number [facility] [address] [place] [phone] * Magnesium (10/11/2022 11:38 AM EST) Magnesium 1.8 1.6 - 2.6 mg/dL [facility] 10/11/2022 11:3 8 AM EST 10/11/2022 11:44 AM EST [facility] External Provider LAB BLO OD ORDERABLES Final Result [facility] [address] [place] [phone] * Comprehensive Metabolic Panel (10/11/2022 11:38 AM EST) Sodium 140 135 - 145 mmol/L [facility] Potassium 3.9 3.3 - 5.1 mmol/L [facility] Chloride 108 96 - 108 mmol/L [facility] Carbon Dioxide 22 22 - 29 mmol/L [facility] Anion Gap 14 12 - 20 [facility] Urea Nitrogen (BUN) 16 9 - 16 mg/dL [facility] Creatinine, Serum 0.70 0.5 - 1.4 mg/dL [facility] Creatinine Clr Calc Pharmacy 83.4 [facility] Comment:Provided height and weight: 162.56 cm,72.575 kg.eGFR (calculated from the MDRD study equation) and eCrCl(calculated from the Cockcroft-Gault equation) are based ondifferent parameters and may not yield comparable results.If eCrCl result is absurd, please check patient'sheight/weight. Estimated Glomerular Filt Rate >60 [facility] Comment:NOTE: For -Am erican individuals, multiply the result by 1.210.Chronic Kidney Disease: Estimated GFR < 60 mL/min/1.67e3Goukez Kidney Disease: Estimated GFR < 15 mL/min/1.73m2 Glucose 86 60 - 115 mg/dL [facility] Calcium 9.5 8.4 - 10.2 mg/dL [facility] Bilirubin, Total 0.3 0.0 - 1.0 mg/dL [facility] Aspartate Amino Transferase 20 5 - 31 U/L [facility] Alanine Aminotransferase 19 0 - 31 U/L [facility] Total Protein 7.3 6.5 - 8.0 g/dL [facility] Albumin Level 4.1 3.5 - 5.0 g/dL [facility] Alkaline Phosphatase 114 39 - 117 U/L [facility] 10/11/2022 11:3 8 AM EST 10/11/2022 11:44 AM EST [facility] External Provider LAB BLO OD ORDERABLES Final Result Performing Organization Address [facility] Co de Phone Number [facility] [address] [place] [phone] * Prothrombin Time-INR (10/11/2022 11:38 AM EST) Prothrombin Time 11.5 10.0 - 13.1 SEC [facility] INTERNATIONAL NORM RATIO 1.0 0.9 - 1.1 [facility] Comment:INTERNATIONAL NORMAL IZED RATIO (INR) REFERENCE RANGES Reference RangeFor patients not on anticoagulant therapy: 0.9 - 1.1INR ranges for oral anticoagulanttherapy:For prevention and treatment of venous thrombosis and pulmonary embolism: 2.0 - 3.0For acute myocardial infarction with aspirin therapy: 2.0 - 3.0For acute myocardial infarction without aspirin therapy: 3.0 - 4.0For patients with mechanical prosthetic heart valves: 2.5 - 3.5 10/11/2022 11:3 8 AM EST 10/11/2022 11:44 AM EST [facility] External Provider LAB BLO OD ORDERABLES Final Result Performing Organization Address [facility] Co de Phone Number [facility] [address] [place] [phone] * (ABNORMAL) CBC auto differential (10/11/2022 11:38 AM EST) White Blood Count 12.0(H) 4.8 - 10.8 X10*3/uL [facility] Red Blood Count 4.60 4.20 - 5.50 X10*6/uL [facility] Hemoglobin 11.0(L) 12.0 - 16.0 g/dl [facility] Hematocrit 36.0(L) 37.0 - 47.0 % [facility] Mean Corpuscular Volume 78.3(L) 80.0 - 98.0 fL [facility] Mean Corpuscular Hemoglobin 23.9(L) 27.0 - 33.0 pg [facility] Mean Corpuscular HGB Conc 30.6(L) 31.0 - 35.0 g/dl [facility] Red Cell Distribution Width 16.9(H) 11.0 - 16.0 % [facility] Platelet Count 246 160 - 400 X10*3/uL [facility] Mean Platelet Volume 10.3 9.4 - 12.3 fL [facility] Neutrophils Percent Auto 69.8 45 - 73 % [facility] Imm Gran Pct Auto 0.3 0.0 - 0.4 % [facility] Lymphocytes Percent Auto 21.8 20 - 40 % [facility] Monocytes Percent Auto 5.8 2 - 11 % [facility] Eosinophils Percent Auto 2.0 0 - 4 % [facility] Basophils Percent Auto 0.3 0 - 2 % [facility] NRBC Pct Auto 0.0 0.0 - 0.2 /100WBC [facility] Neutrophils Absolute Auto 8.4(H) 2.0 - 8.3 x10*3/uL [facility] Imm Gran Abs Auto 0.04(H) 0.00 - 0.03 X10*3/uL [facility] Lymphocytes Absolute Auto 2.6 1.2 - 4.9 X10*3/uL [facility] Monocytes Absolute Auto 0.7 0.1 - 1.2 X10*3/uL [facility] Eosinophils Absolute Auto 0.2 0.0 - 0.4 X10*3/uL [facility] Basophils Absolute Auto 0.0 0.0 - 0.2 X10*3/uL [facility] NRBC Abs Auto 0.000 0.0 - 0.012 X10*3/uL [facility] 10/11/2022 11:3 8 AM EST 10/11/2022 11:44 AM EST us [facility] External Provider LAB BLO OD ORDERABLES Final Result Performing Organization Address City/State/[facility] Co de Phone Number [facility] [address] [place] [address] [phone] documented in this encounter Visit Diagnoses Not on filedocumented in this encounter Care Teams Acting Manager Relationship Specialty Start Date End Date Lilly Cowart MD [address] [place] [phone] PCP - General Family Medicine 11/16/21 documented as of this encounter
--- OUTSIDE RECORDS SUMMARY | 2024-10-12 17:57 | XMS_ITS | Encounter Summary ---
Author Organization [employer] Address [address] [facility] 7[address] [place] [address] Care Team Providers Care Sheepskin Pickler Name Role Phone Lilly Cowart MD Primary Care Provider [phone] Reason for Visit * Reason Comments Med Refill Encounter Details Date Type Department Care Team ([facility] st Contact Info) Description 08/27/2024 Refill [facility] MEDICINE [address] [place], [place] [phone] Lilly Cowart MD [address] [place], [place] [phone] Social History Tobacco Use Types Packs/Day Years [...] documented as of this encounter Care Teams Sheepskin Pickler Relationship Specialty Start Date End Date Lilly Cowart MD [address] [place] [phone] PCP - General Family Medicine 11/16/21 documented as of this encounter
--- OUTSIDE RECORDS SUMMARY | 2024-10-12 17:57 | XMS_ITS | Encounter Summary ---
Author Organization [employer] Address [address] [facility] 7[address] [place] [address] Care Team Providers Care Column Precaster Name Role Phone Lilly Cowart MD Primary Care Provider [phone] Reason for Visit * Reason Onset Date Comments Hospital Follow-up 05/17/2023 Encounter Details Date Type Department Care Team ([facility] st Contact Info) Description 05/17/2023 Telephone [facility] MEDICINE [address] [place] [phone] Lilly Cowart MD [address] [place] [phone] Hospital Follow-up Social History Tobacco Use Types Packs/Day Years [...] encounter Miscellaneous Notes * Telephone Encounter - Leigh Dumont - 05/17/2023 2:23 PM EDT Tc from pt calling to advise PCP of a HDF. Pt was admitted at [facility] on 05/07 and discharged on 05/10 for leg infection, fever, and low blood pressure. Was advised will forward to team nurses for f/u. Please contact pt at [phone] documented in this encounter Plan of Treatment Not on file documented as of this encounter Visit Diagnoses Not on filedocumented in this encounter Care Teams Column Precaster Relationship Specialty Start Date End Date Lilly Cowart MD [address] [place] [address] PCP - General Family Medicine 11/16/21 documented as of this encounter
--- OUTSIDE RECORDS SUMMARY | 2024-10-12 17:57 | XMS_ITS | Clinical Summary ---
Author Organization [facility] Address [address] [place] [address] Care Team Providers Care Destaticizer Feeder Name Role Phone Unavailable Primary Care Provider Unavailabl e Social History Tobacco Use Types Packs/Day Years Used Date Smoking Tobacco: Never Assessed Sex and Gender Information Value Date Recorded Sex Assigned at Not on file Gender Identity Not on file Sexual Orientation Not on file Plan of Treatment Health Maintenance Due Date Last Done Comments Breast Cancer Screening 1962 DTaP,Tdap,and Td Vaccines (1 - Tdap) 1981 Cervical Cancer Screening: P ap Smear 1983 Zoster Vaccines (1 of 2) 2012 Colorectal Cancer Screening: Colonoscopy 10/16/2023 Depression Screening 10/16/2023 HIV Screening 10/16/2023 Hepatitis C Screening 10/16/2023 Social Influencers of Health Screening 10/16/2023 COVID-19 Vaccine ( - 2023-2 5 season) 2024 Influenza Vaccine (#1) 2024 RSV Immunization Patients 60 + Years Old (1 - 1-dose 75+ series) 2037 HIB Vaccines Aged Out No longer eligi [...] on patient's age to complete this topic MMR Vaccines Aged Out No longer eligi ble based on patient's age to complete this topic Meningococcal ACWY Vaccine Aged Out N o longer eligible based on patient's age to complete this topic Pneumococcal Vaccine: Pediat rics (0 to 5 Years) and At-Risk Patients (6 to 64 Years) Aged Out No longer eligible b ased on patient's age to complete this topic RSV Immunization Patients Un eric 20 months Aged Out No longer eligible b ased on patient's age to complete this topic Varicella Vaccines Aged Out No longer eligible based on patient's age to complete this topic
[2024-10-12] MEDS: Morphine Sulfate 4 MG/ML CARTRIDGE IVPUSH ×2 (18:04→20:53)
[2024-10-12] MEDS: Metoclopramide HCl 10 MG/2 ML VIAL IVPUSH (18:04)
[2024-10-12] MEDS: diphenhydrAMINE HCL 50 MG/ML VIAL IVPUSH (18:04)
[2024-10-12 18:05] LABS: MANUAL DIFF FLAG NO
[2024-10-12 18:08] LABS: Basophils Percent Auto 0.4 % (0-2); Eosinophils Absolute Auto 0.3 X10*3/uL (0.0-0.4); Eosinophils Percent Auto 3.4 % (0-4); Hemoglobin 10.4 g/dl (12.0-16.0); Imm Gran Abs Auto 0.03 X10*3/uL (0.00-0.03); Imm Gran Pct Auto 0.3 % (0.0-0.4); Lymphocytes Absolute Auto 3.5 X10*3/uL (1.2-4.9); Lymphocytes Percent Auto 36.9 % (20-40); Mean Corpuscular HGB Conc 30.6 g/dl (31.0-35.0); Mean Corpuscular Hemoglobin 24.1 pg (27.0-33.0); Mean Corpuscular Volume 78.7 fL (80.0-98.0); Mean Platelet Volume 11.2 fL (9.4-12.3); Monocytes Absolute Auto 0.6 X10*3/uL (0.1-1.2); Monocytes Percent Auto 6.6 % (2-11); Neutrophils Absolute Auto 4.9 x10*3/uL (2.0-8.3); Neutrophils Percent Auto 52.4 % (45-73); Platelet Count 264 X10*3/uL (160-400); Red Blood Count 4.32 X10*6/uL (4.20-5.50); Red Cell Distribution Width 18.4 % (11.0-16.0); White Blood Count 9.4 X10*3/uL (4.8-10.8)
[2024-10-12 18:25] LABS: Alanine Aminotransferase 19 U/L (0-31); Albumin Level 4.1 g/dL (3.5-5.0); Alkaline Phosphatase 96 U/L (39-117); Anion Gap 10 (12-20); Aspartate Amino Transferase 21 U/L (5-31); Bilirubin Total 0.1 mg/dL (0.0-1.0); Blood Urea Nitrogen 17 mg/dL (9-16); C Reactive Protein 0.48 mg/dL (< or = 0.50); Calcium 9.2 mg/dL (8.4-10.2); Carbon Dioxide 25 mmol/L (22-29); Chloride 112 mmol/L (96-108); Creatinine Clr Calc Pharmacy 80.2; Estimated Glomerular Filt Rate > 60; Glucose Random 106 mg/dL (60-115); Lipase 31 U/L (8-78); Potassium 3.6 mmol/L (3.3-5.1); Sodium 143 mmol/L (135-145); Total Protein 7.7 g/dL (6.5-8.0)
[2024-10-12 18:32] LABS: Troponin-I High Sensitivity < 2.7 ng/L (<3.5-17.0)
[2024-10-12 18:43] LABS: Erythrocyte Sedimentation Rate 37 MM/HR (0-20)
[2024-10-12] MEDS: ondansetron HCL 4 MG/2 ML VIAL IVPUSH ×2 (18:46→20:53)
[2024-10-12 20:00] VITALS: BP 130/70; PULSE 95; RESP 18; O2SAT 99
[2024-10-12 21:34] VITALS: BP 130/70; PULSE 95; RESP 18; TEMP 36.7; O2SAT 99
== END 2024-10-12 21:34 | disposition home or self-care (01) ==
PROVIDERS: Emergency Provider Emergency Medicine Emergency Medical Services; PCP General Practice
DX: R51.9 Headache, unspecified (principal); M54.2 Cervicalgia; M79.641 Pain in right hand; H53.8 Other visual disturbances; I10 Essential (primary) hypertension; M79.10 Myalgia, unspecified site; R94.31 Abnormal electrocardiogram [ECG] [EKG]; F17.210 Nicotine dependence, cigarettes, uncomplicated; Z79.899 Other long term (current) drug therapy
CPT/HCPCS: 36415; 80053; 83690; 83735; 84484; 85025; 85652; 85730; 86140; 93005; 99284; J1200; J2270; J2405; J2765

== ENCOUNTER → 2024-10-12 17:39 | Outpatient (BNV) | payer MEDICAID, SELFPAY | PROVIDERS: Emergency Provider Emergency Medicine Emergency Medical Services; PCP General Practice; Visit Provider Internal Medicine | DX: R94.31 Abnormal electrocardiogram [ECG] [EKG] (principal); R51.9 Headache, unspecified | CPT/HCPCS: 93010 ==

== ENCOUNTER 2024-10-18 14:02 | Emergency (ER) | payer MEDICAID, SELFPAY ==
--- NOTE | ~2024-10-18 | CT_ITS ---
CLINICAL HISTORY: Persistent right-sided BENÍTEZ and neck pain x1 month CT Head with and without contrast. CT angiography head and neck with contrast. 3D Postprocessing. Comparison: None Findings: HEAD CT: No intra-axial mass, midline shift, hydrocephalus, or acute hemorrhage. Mild diffuse cerebral volume loss. Mild degree of patchy low-density within the periventricular and subcortical white matter. No abnormal intracranial enhancement. The visualized paranasal sinuses and mastoid air cells are normal. The orbits are within normal limits. No skull fracture. HEAD AND NECK CTA: Aortic arch and cervical great vessels are patent. There is high-grade narrowing of the bilateral vertebral artery origins. Intracranial arteries are patent. No aneurysm, dissection, or occlusion. No abnormal intracranial enhancement. The visualized thyroid gland is unremarkable. No cervical mass or fluid collection. Lung apices clear. No acute fracture. IMPRESSION: 1. No acute intracranial abnormality. 2. High-grade bilateral vertebral artery origin stenoses. 3. Otherwise negative CT angiography of the head and neck. This document has been electronically signed by: Essence Salazar MD on 10/18/2024 17:55:56
[2024-10-18 14:07] VITALS: BP 178/92; PULSE 85; O2SAT 97
--- NOTE | 2024-10-18 14:09 | ECG_ITS ---
Test Reason : CP Blood Pressure : */* mmHG Vent. Rate : 69 BPM Atrial Rate : 69 BPM P-R Int : 160 ms QRS Dur : 96 ms QT Int : 388 ms P-R-T Axes : * -26 -22 degrees QTcB Int : 415 ms Normal sinus rhythm Moderate voltage criteria for LVH, may be normal variant ( R in aVL , Jose Manuel product ) Possible Anterior infarct , age undetermined Abnormal ECG When compared with ECG of 12-Oct-2024 18:47, T wave inversion now evident in Inferior leads Referred By: Generic ED Physician Electronically Signed By: KINA RJOAS
[2024-10-18 14:33] VITALS: BP 147/74; PULSE 68; RESP 20; TEMP 36.6; O2SAT 100; BMI 32.1
[2024-10-18 14:41] VITALS: BP 147/74; PULSE 68; RESP 20; TEMP 36.6; O2SAT 100
--- OUTSIDE RECORDS SUMMARY | 2024-10-18 14:52 | XMS_ITS | Encounter Summary ---
Author Organization [employer] Address [address] [facility] [address] [place] [address] Care Team Providers Care Optomechanical Technician Name Role Phone Lilly Cowart MD Primary Care Provider [phone] Reason for Visit * Reason Onset Date Comments Durable Medical Equipment 01/11/2024 Encounter Details Date Type Department Care Team ([facility] st Contact Info) Description 01/11/2024 Telephone [facility] MEDICINE [address] [place] [address] Lilly Cowart MD [address] [place] [address] Durable Medical Equipment Social History Tobacco Use [...] documented as of this encounter Care Teams Optomechanical Technician Relationship Specialty Start Date End Date Lilly Cowart MD [address] [place] [phone] PCP - General Family Medicine 11/16/21 documented as of this encounter
--- OUTSIDE RECORDS SUMMARY | 2024-10-18 14:52 | XMS_ITS | Encounter Summary ---
Author Organization [employer] Address [address] [facility] 7t [place] [address] Care Team Providers Care Wound Care Technician Name Role Phone Lilly Cowart MD Primary Care Provider [phone] Reason for Visit * Reason Comments Med Refill Encounter Details Date Type Department Care Team ([facility] st Contact Info) Description 08/27/2024 Refill [facility] [address] [place], [place] [phone] Lilly Cowart MD [address] [place], [place] [phone] Social History Tobacco Use Types Packs/Day Years [...] documented as of this encounter Care Teams Wound Care Technician Relationship Specialty Start Date End Date Lilly Cowart MD [address] [place] [address] PCP - General Family Medicine 11/16/21 documented as of this encounter
--- OUTSIDE RECORDS SUMMARY | 2024-10-18 14:52 | XMS_ITS | Encounter Summary ---
Author Organization [email or web address] Address [address] [facility] 7t [place] [address] Care Team Providers Care Dormitory Counselor Name Role Phone Lilly Cowart MD Primary Care Provider [phone] Encounter Details Date Type Department Care Team (Late st Contact Info) Description 05/25/2023 Abstract [facility] [address] [place], [place] [phone] Lilly Cowart MD [address] [place], [place] [phone] Social History Tobacco Use Types Packs/Day Years [...] on filedocumented in this encounter Care Teams Dormitory Counselor Relationship Specialty Start Date End Date Lilly Cowart MD [address] [place], [place] [phone] PCP - General Family Medicine 11/16/21 documented as of this encounter
--- OUTSIDE RECORDS SUMMARY | 2024-10-18 14:52 | XMS_ITS | Encounter Summary ---
Author Organization [employer] Address [address] [facility] 7t [place] [address] Care Team Providers Care Corrosion Prevention Metal Sprayer Name Role Phone Lilly Cowart MD Primary Care Provider [phone] Reason for Visit * Reason Comments Med Refill Encounter Details Date Type Department Care Team (Late st Contact Info) Description 10/29/2022 Refill [facility] [address] [place] [address] Bouchra Pacheco MD [address] [place] [address] Cellulitis of right lower limb Social History [...] limb documented in this encounter Care Teams Corrosion Prevention Metal Sprayer Relationship Specialty Start Date End Date Lilly Cowart MD [address] [place] [address] PCP - General Family Medicine 11/16/21 documented as of this encounter
--- OUTSIDE RECORDS SUMMARY | 2024-10-18 14:52 | XMS_ITS | Encounter Summary ---
Author Organization [employer] Address [address] [facility] 7t [place] [address] Care Team Providers Care Echocardiography Technologist Name Role Phone Lilly Cowart MD Primary Care Provider [phone] Encounter Details Date Type Department Care Team (Late st Contact Info) Description 01/23/2024 Orders Only [facility] [address] [place], [place] [phone] Lilly Cowart MD 230 [place], [place] [phone] Social History Tobacco Use Types Packs/Day Years [...] Procedure Name Priority Date/Time Associated Diagnosis Comments FL GUIDANCE IN TREATMENT ROOM Routine 01/31/2024 2:45 PM EDT documented in this encounter Results * FL Guidance in Treatment Room (01/31/2024 2:45 PM EDT) Anatomical Region Laterality Modality X-Ray Angiograph y 01/31/2024 2:45 PM EDT Narrative 04/05/2024 6:59 AM EDT ? [facility] ?[address] ?[place] [address] ? Fluoroscopy Report ? Signed ? Patient: Nadege Lee ?MR#: [id number] ? : 1960 ?Acct:[id number] ? Age/Sex: 63 / F ?ADM Date: 01/31/24 ? Loc: CF ? Attending Dr: Yvon Rodriguez MD ? Ordering Physician: Rut Heaton APRN, CNP ?? Date of Service: 01/31/24 ?? Procedure(s): FL guidance in treatment room ?? Accession Number(s): [id number] ? cc: Rut Heaton APRN, VENU; Lilly Cowart ? EXAMINATION: ?? XR FLUOROSCOPY WITH IMAGES ? CLINICAL INFORMATION: ?? Spondylosis without myelopathy. ? COMPARISON: ?? None available. ? TECHNIQUE: ?? Fluoroscopy Supervised By: Dr. Yvon Rodriguez. ?? Fluoroscopy Time: 0.1 minutes. ?? Cumulative Dose: 1.55 mGy. ?? DAP: 0.0174 Gy-cm2. ?? Images: 2. ? FINDINGS: ?? Intraoperative fluoroscopy and spot films were performed during a ?? procedure in the OR. Spinal needles are seen at 2 consecutive levels ?? bilaterally in lumbosacral spine with contrast injected for ?? transforaminal injection. Exact site cannot be ascertained secondary to ?? marked coning of the images. Please see Dr. Yvon Rodriguez' ?? report for complete details. ? FL/FL guidance in treatment room ?? IMPRESSION: ?? Intraoperative fluoroscopy and spot films were obtained. Please see ?? Yvon Rodriguez' report for complete details. ? Dictated By: ?Silvio Aparicio MD ? Signed By: ?<Electronically signed by Silvio Aparicio MD in OV> ? 04/05/24 06 ? DD/ 1445 ? TD/TT: ? Six Pack Packer: SS ? Procedure Note Donjasmin, Image - 04/05/2024 [place] [address] Fluoroscopy Report Signed Patient: Taty Lee#: [id number] : 1960cct:[id number] Age/Sex: 63 / FADM Date: 01/31/24 Loc: CF Attending Dr: Yvon Rodriguez MD Ordering Physician: Rut Heaton APRN, CNP Date of Service: 01/31/24 Procedure(s): FL guidance in treatment room Accession Number(s): [id number] cc: Rut Heaton APRN, CNP; Lilly Cowart EXAMINATION: XR FLUOROSCOPY WITH IMAGES CLINICAL INFORMATION: Spondylosis without myelopathy. COMPARISON: None available. TECHNIQUE: Fluoroscopy Supervised By: Dr. Yvon Rodriguez. Fluoroscopy Time: 0.1 minutes. Cumulative Dose: 1.55 mGy. DAP: 0.0174 Gy-cm2. Images: 2. FINDINGS: Intraoperative fluoroscopy and spot films were performed during a procedure in the OR. Spinal needles are seen at 2 consecutive levels bilaterally in lumbosacral spine with contrast injected for transforaminal injection. Exact site cannot be ascertained secondary to marked coning of the images. Please see Dr. Yvon Rodriguez' report for complete details. FL/FL guidance in treatment room IMPRESSION: Intraoperative fluoroscopy and spot films were obtained. Please see Dr. Yvon Rodriguez' report for complete details. Dictated By: Silvio Aparicio MD Signed By: <Electronically signed by Silvio Aparicio MD in OV> 04/05/24 0655 DD/ 1445 TD/TT: Six Pack Packer: [facility] External Provider IMG IR PROCEDURES Final Result documented in this encounter Visit Diagnoses Not on filedocumented in this encounter Additional Health Concerns Assessment Noted Time PHQ-9 Depression Total Score: 8 12/27/19 24 3:25 PM EDT documented as of this encounter Care Teams Echocardiography Technologist Relationship Specialty Start Date End Date Lilly Cowart MD [address] [place] [phone] PCP - General Family Medicine 11/16/21 documented as of this encounter
--- OUTSIDE RECORDS SUMMARY | 2024-10-18 14:52 | XMS_ITS | Encounter Summary ---
Author Organization [employer] Address [address] [facility] 7t [place] [address] Care Team Providers Care Tailor Fitter Name Role Phone Lilly Cowart MD Primary Care Provider [phone] Reason for Visit * Reason Comments Med Refill Encounter Details Date Type Department Care Team (Late st Contact Info) Description 11/01/2022 Refill [facility] [address] [place] [address] Bouchra Pacheco MD [address] [place] [address] Cellulitis of right lower limb Social History [...] limb documented in this encounter Care Teams Tailor Fitter Relationship Specialty Start Date End Date Lilly Cowart MD [address] [place] [address] PCP - General Family Medicine 11/16/21 documented as of this encounter
--- OUTSIDE RECORDS SUMMARY | 2024-10-18 14:52 | XMS_ITS | Encounter Summary ---
Author Organization [employer] Address [address] [facility] 7t [place] [address] Care Team Providers Care Idea Man Name Role Phone Lilly Cowart MD Primary Care Provider [phone] Reason for Visit * Reason Onset Date Comments Hospital Follow-up 05/17/2023 Encounter Details Date Type Department Care Team ([facility] st Contact Info) Description 05/17/2023 Telephone [facility] MED[facility]INE [address] [place] [address] Lilly Cowart MD [address] [place] [address] Hospital Follow-up Social History Tobacco Use Types [...] of a HDF. Pt was admitted at [facility] on 05/07 and discharged on 05/10 for leg infection, fever, and low blood pressure. Was advised will forward to team nurses for f/u. Please contact pt at [phone] documented in this encounter Plan of Treatment Not on file documented as of this encounter Visit Diagnoses Not on filedocumented in this encounter Care Teams Idea Man Relationship Specialty Start Date End Date Lilly Cowart MD [address] [place] [address] PCP - General Family Medicine 11/16/21 documented as of this encounter
--- OUTSIDE RECORDS SUMMARY | 2024-10-18 14:52 | XMS_ITS | Clinical Summary ---
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 Oxycodone 5mg for nighttime x 30 days, use sparingly Assessment & Plan (11/09/2022 11:47 AM EST): Pt admitted to [facility] recently as a result. Work up did [...] Type Department Care Team Description 09/11/2024 Refill [facility] [address] [place] [address] Lilly Cowart MD Recurrent cellulitis of lower extremity 08/27/2024 Refill [facility] [address] [place] [address] Lilly Cowart MD 08/11/2024 Orders Only [facility] External Provider, [facility] 08/01/2024 Telephone [facility] [address] [place] [address] Lilly Cowart MD Referral 07/28/2024 Telephone [facility] [address] [place] [address] Lilly Cowart MD callback requested 07/22/2024 Refill [facility] [address] [place] [address] Lilly Cowart MD Recurrent cellulitis of lower extremity; Pain and swelling of lower extremity, right from Last 3 Months Immunizations Name Administration [...] Vaccines (1 of 2) 2012 Pneumococcal Vaccine: 50+ Years (2 of 2 - PCV) 10/01/2014 10/01/2013, 10/30/2012 RSV Patients and Patients Aged 60 years or older (1 - Risk 60-74 years 1-dose series) 2022 COVID-19 Vaccine ( season) 2024 09/30/2021, 09/08/2021 Influenza Vaccine (#1) [...] VIEWS RIGHT Routine 08/11/2024 3:11 PM EST BI MAMMOGRAM SCREENING TOMOSYNTHESIS BILATERAL Routine 01/22/2024 2:21 PM EDT Encounter for screening mammogram for malignant neoplasm of breast from Last 3 Months or Most Recently Relevant to Health Maintenance Results * XR Knee 1-2 Views Right (08/11/2024 3:11 PM EST) Anatomical Region Laterality Modality Lower Extremities, Knee Right [facility] 08/11/2024 3:11 PM EST Narrative 08/16/2024 10:26 PM EST ? [facility] ?[address] ?[place] [address] ?XRay Report ? Signed ? Patient: Jesus,Nadege ?MR#: [id number] ? : 1960 ?Acct:[id number] ? Age/Sex: 64 / F ?ADM Date: 11/25/24 ? Loc: HO.XRAY ? Attending Dr: Amy Rodriguez MD ? Ordering Physician: Amy Rodriguez MD ?? Date of Service: 08/11/24 ?? Procedure(s): XR knee RT 2V ?? Accession Number(s): [id number] ? cc: Lilly Cowart; Amy Rodriguez MD [...] DD/ 1511 ? TD/TT: 08/11/24 1532 ? Classifications Officer Cc/Cm: WG ? Procedure Note Gisela, Image - 08/16/2024 [place] [address] XRay Report Signed Patient: Taty Lee#: [id number] : 2Acct:[id number] Age/Sex: 64 / FADM Date: 08/11/24 Loc: DUONG Attending Dr: Amy Rodriguez MD Ordering Physician: Amy Rodriguez MD Date of Service: 08/11/24 Procedure(s): XR knee RT 2V Accession Number(s): [id number] cc: Lilly Cowart; Amy Rodriguez MD EXAMINATION: [...] by: Jesus Barrios MD 08/16/2024 10:24 PM EST RP Dictated By: Jesus Barrios MD Signed By: <Electronically signed by Jesus Barrios MD inOV> 08/16/24 2224 DD/ 1511 TD/TT: 08/11/24 1532 Classifications Officer Cc/Cm: JONI [facility] External Provider IMG XR PROCEDURES Edited Result - Final * BI Mammogram Screening Tomosynthesis Bilateral (01/22/2024 2:21 PM EDT) Anatomical Region Laterality Modality Breast Bilateral Mammography 01/22/2024 2:21 PM EDT Narrative 02/21/2024 1:33 PM EDT ? [facility] [place] ? [address] ?[place] [address] ? Mammography Report ? Signed ? Patient: Jesus,Nadege ?MR#: [id number] ? : 1960 ?Acct:[id number] ? Age/Sex: 63 / F ?ADM Date: // ? Loc: HO.MAMMO ? Attending Dr: Lilly Cowart MD ? Ordering Physician: Lilly Cowart ?Results: 1Negative ? Date of Service: 01/21/ ?Follow Up: 1 Year From Orig ?? inal Mammogram ? Procedure(s): MM tomosynthesis screening BI ?? Accession Number(s): [id number] ? cc: Lilly Cowart ? EXAMINATION: ?? MM SCREENING DIGITAL BREAST TOMOSYNTHESIS, BILATERAL ? CLINICAL INFORMATION: ? Screening. Asymptomatic. ? COMPARISON: ?? Mammography: This study is compared with prior exams dating back to ?? 2018. ? TECHNIQUE: ?? Digital breast tomosynthesis is [...] 1329 ? DD/ 1421 ? TD/TT: ? Classifications Officer Cc/Cm: ? Procedure Note Talisha Higgins - 02/21/2024 [place] [facility] [address] [place] [address] Dr. Masters, [place] [address] Mammography Report Signed Patient: Taty Lee#: [id number] : 2Acct:[id number] Age/Sex: 63 / FADM Date: 01/22/24 Loc: HO.MAMMO Attending Dr: Lilly Cowart MD Ordering Physician: Devon Cowartults: 1Negative Date of Service: 01/22/24Follow Up: 1 Year From Orig inal Mammogram Procedure(s): MM tomosynthesis screening BI Accession Number(s): [id number] cc: Lilly Cowart EXAMINATION: MM SCREENING DIGITAL [...] in OV> 02/21/24 1329 DD/ 1421 TD/TT: Classifications Officer Cc/Cm: Lilly Cowart MD IMG BI PROCEDURES Final Result from Last 3 Months or Most Recently Relevant to Health Maintenance Insurance [employer] Care Teams Stem Roller Operator Relationship Specialty Start Date End Date Lilly Cowart MD [address] [place] [phone] PCP - General Family Medicine 11/16/21
--- OUTSIDE RECORDS SUMMARY | 2024-10-18 14:52 | XMS_ITS | Clinical Summary ---
Author Organization [facility] Address [address] [place] [address] Care Team Providers Care Emergency Man Name Role Phone Unavailable Primary Care Provider [...]
--- OUTSIDE RECORDS SUMMARY | 2024-10-18 14:52 | XMS_ITS | Encounter Summary ---
Author Organization [facility] Address [address] [facility] [address] [place] [address] Care Team Providers Care Director Occupational Name Role Phone Lilly Cowart MD Primary Care Provider Encounter Details Date Type Department Care Team (Late st Contact Info) Description 08/30/2022 Orders Only [facility] [address] [place] [address] Lindsey Salcedo LPN Social History Tobacco Use [...] (12/07/2022 11:34 AM EDT) Color Urine Yellow [facility] Appearance Urine Clear [facility] PH 6.5 5.0 - 9.0 [facility] Glucose Urine UA Negative Negative mg/dL [facility] Urine Blood Negative Negative [facility] Specific [place] - Urine >=1.030(H) 1.005 - 1.025 [facility] Urine Protein Negative Neg-Trace mg/dL [facility] Urine Ketones Negative Negative mg/dL [facility] Nitrite Urine Negative Negative [facility] Leukocyte Esterase Urine Negative Negative [facility] RBC Urine 0-2 0 - 2 /HPF [facility] Urine WBC 0-5 0 - 5 /HPF [facility] Urine Squamous Epithelial Cell 0-2 0 - 2 /HPF [facility] Urine Bacteria None Seen None Seen [facility] Hyaline Casts, Urine 0-2 0 - 2 /LPF [facility] 12/07/2022 11:3 4 AM EDT 12/07/2022 11:37 AM EDT Narrative [facility] - 12/07/2022 11:45 AM EDT 1131Urine, Catheterized us [facility] External Provider LAB URI NE ORDERABLES Final Result [facility] [address] [place] [phone] * (ABNORMAL) Comprehensive Metabolic Panel, Fasting (12/07/2022 9:57 AM EDT) Sodium 140 135 - 145 mmol/L [facility] Potassium 4.0 3.3 - 5.1 mmol/L [facility] Chloride 108 96 - 108 mmol/L [facility] Carbon Dioxide 21(L) 22 - 29 mmol/L [facility] Anion Gap 15 12 - 20 [facility] Urea Nitrogen (BUN) 14 9 - 16 mg/dL [facility] Creatinine, Serum 0.79 0.5 - 1.4 mg/dL [facility] Creatinine Clr Calc Pharmacy 76.2 [facility] Comment:Provided height and weight: 162.56 cm,77.564 kg.eGFR (calculated from the MDRD study equation) and eCrCl(calculated from the Cockcroft-Gault equation) are based ondifferent parameters and may not yield comparable results.If eCrCl result is absurd, please check patient'sheight/weight. Estimated Glomerular Filt Rate >60 [facility] Comment:NOTE: For -Am erican individuals, multiply the result by 1.210.Chronic Kidney Disease: Estimated GFR < 60 mL/min/[id number] Kidney Disease: Estimated GFR < 15 mL/min/1.73m2 Glucose Fasting 88 60 - 99 mg/dL [facility] Calcium 9.7 8.4 - 10.2 mg/dL [facility] Bilirubin, Total 0.4 0.0 - 1.0 mg/dL [facility] Aspartate Amino Transferase 17 5 - 31 U/L [facility] Alanine Aminotransferase 17 0 - 31 U/L [facility] Total Protein 7.3 6.5 - 8.0 g/dL [facility] Albumin Level 4.2 3.5 - 5.0 g/dL [facility] Alkaline Phosphatase 92 39 - 117 U/L [facility] 12/07/2022 9:57 AM EDT 12/07/2022 10:02 AM EDT us [facility] External Provider LAB BLO OD ORDERABLES Final Result [facility] [address] [place] [phone] * (ABNORMAL) CBC auto differential (12/07/2022 9:57 AM EDT) White Blood Count 8.3 4.8 - 10.8 X10*3/uL [facility] Red Blood Count 4.29 4.20 - 5.50 X10*6/uL [facility] Hemoglobin 10.2(L) 12.0 - 16.0 g/dl [facility] Hematocrit 33.5(L) 37.0 - 47.0 % [facility] Mean Corpuscular Volume 78.1(L) 80.0 - 98.0 fL [facility] Mean Corpuscular Hemoglobin 23.8(L) 27.0 - 33.0 pg [facility] Mean Corpuscular HGB Conc 30.4(L) 31.0 - 35.0 g/dl [facility] Red Cell Distribution Width 17.2(H) 11.0 - 16.0 % [facility] Platelet Count 284 160 - 400 X10*3/uL [facility] Mean Platelet Volume 10.3 9.4 - 12.3 fL [facility] Neutrophils Percent Auto 45.6 45 - 73 % [facility] Imm Gran Pct Auto 0.2 0.0 - 0.4 % [facility] Lymphocytes Percent Auto 42.9(H) 20 - 40 % [facility] Monocytes Percent Auto 7.2 2 - 11 % [facility] Eosinophils Percent Auto 3.6 0 - 4 % [facility] Basophils Percent Auto 0.5 0 - 2 % [facility] NRBC Pct Auto 0.0 0.0 - 0.2 /100WBC [facility] Neutrophils Absolute Auto 3.8 2.0 - 8.3 x10*3/uL [facility] Imm Gran Abs Auto 0.02 0.00 - 0.03 X10*3/uL [facility] Lymphocytes Absolute Auto 3.6 1.2 - 4.9 X10*3/uL [facility] Monocytes Absolute Auto 0.6 0.1 - 1.2 X10*3/uL [facility] Eosinophils Absolute Auto 0.3 0.0 - 0.4 X10*3/uL [facility] Basophils Absolute Auto 0.0 0.0 - 0.2 X10*3/uL [facility] NRBC Abs Auto 0.000 0.0 - 0.012 X10*3/uL [facility] 12/07/2022 9:57 AM EDT 12/07/2022 10:02 AM EDT [facility] External Provider LAB BLO OD ORDERABLES Final Result [facility] [address] [place] [phone] * (ABNORMAL) Comprehensive Metabolic Panel (10/23/2022 10:53 AM EST) Sodium 139 135 - 145 mmol/L [facility] Potassium 4.3 3.3 - 5.1 mmol/L [facility] Chloride 108 96 - 108 mmol/L [facility] Carbon Dioxide 23 22 - 29 mmol/L [facility] Anion Gap 12 12 - 20 [facility] Urea Nitrogen (BUN) 18(H) 9 - 16 mg/dL [facility] Creatinine, Serum 0.87 0.5 - 1.4 mg/dL [facility] Creatinine Clr Calc Pharmacy 67.1 [facility] Comment:Provided height and weight: 162.56 cm,72.575 kg.eGFR (calculated from the MDRD study equation) and eCrCl(calculated from the Cockcroft-Gault equation) are based ondifferent parameters and may not yield comparable results.If eCrCl result is absurd, please check patient'sheight/weight. Estimated Glomerular Filt Rate >60 [facility] Comment:NOTE: For -Am erican individuals, multiply the result by 1.210.Chronic Kidney Disease: Estimated GFR < 60 mL/min/1.51u7Xmdsbo Kidney Disease: Estimated GFR < 15 mL/min/1.73m2 Glucose 82 60 - 115 mg/dL [facility] Calcium 9.5 8.4 - 10.2 mg/dL [facility] Bilirubin, Total 0.3 0.0 - 1.0 mg/dL [facility] Aspartate Amino Transferase 17 5 - 31 U/L [facility] Alanine Aminotransferase 23 0 - 31 U/L [facility] Total Protein 7.1 6.5 - 8.0 g/dL [facility] Albumin Level 4.1 3.5 - 5.0 g/dL [facility] Alkaline Phosphatase 104 39 - 117 U/L [facility] 10/23/2022 10:5 3 AM EST 10/23/2022 10:56 AM EST us [facility] External Provider LAB BLO OD ORDERABLES Final Result [facility] [address] [place] [phone] * (ABNORMAL) CBC auto differential (10/23/2022 10:53 AM EST) White Blood Count 9.5 4.8 - 10.8 X10*3/uL [facility] Red Blood Count 4.38 4.20 - 5.50 X10*6/uL [facility] Hemoglobin 10.5(L) 12.0 - 16.0 g/dl [facility] Hematocrit 34.5(L) 37.0 - 47.0 % [facility] Mean Corpuscular Volume 78.8(L) 80.0 - 98.0 fL [facility] Mean Corpuscular Hemoglobin 24.0(L) 27.0 - 33.0 pg [facility] Mean Corpuscular HGB Conc 30.4(L) 31.0 - 35.0 g/dl [facility] Red Cell Distribution Width 17.2(H) 11.0 - 16.0 % [facility] Platelet Count 319 160 - 400 X10*3/uL [facility] Mean Platelet Volume 10.6 9.4 - 12.3 fL [facility] Neutrophils Percent Auto 49.3 45 - 73 % [facility] Imm Gran Pct Auto 0.3 0.0 - 0.4 % [facility] Lymphocytes Percent Auto 38.4 20 - 40 % [facility] Monocytes Percent Auto 7.9 2 - 11 % [facility] Eosinophils Percent Auto 3.4 0 - 4 % [facility] Basophils Percent Auto 0.7 0 - 2 % [facility] NRBC Pct Auto 0.0 0.0 - 0.2 /100WBC [facility] Neutrophils Absolute Auto 4.7 2.0 - 8.3 x10*3/uL [facility] Imm Gran Abs Auto 0.03 0.00 - 0.03 X10*3/uL [facility] Lymphocytes Absolute Auto 3.6 1.2 - 4.9 X10*3/uL [facility] Monocytes Absolute Auto 0.8 0.1 - 1.2 X10*3/uL [facility] Eosinophils Absolute Auto 0.3 0.0 - 0.4 X10*3/uL [facility] Basophils Absolute Auto 0.1 0.0 - 0.2 X10*3/uL [facility] NRBC Abs Auto 0.000 0.0 - 0.012 X10*3/uL [facility] 10/23/2022 10:5 3 AM EST 10/23/2022 10:56 AM EST us [facility] External Provider LAB BLO OD ORDERABLES Final Result [facility] [address] [place] [phone] * SARS-CoV-2 RNA, Influenza A/B, and RSV RNA, Ql NAAT (10/11/2022 11:39 AM EST) Influenza A PCR NEGATIVE Negative [facility] Influenza B PCR NEGATIVE Negative [facility] Resp Syncy Virus RNA Qual PCR NEGATIVE Negative [facility] SARS COV2 PCR NEGATIVE Negative [facility] SARS/Flu/RSV Note See Note [facility] Comment:All test results mus t [...] use by authorized laboratories.Testing performed on the [employer] GeneXpert utilizingreal-time RT-PCR.All SARS CoV2 and positive influenza A/B results arereported to [facility]. 10/11/2022 11:3 9 AM EST 10/11/2022 11:44 AM EST [facility] Exter nal Provider LAB MICROBIOLOGY - GENERAL ORDERABLES Final Result Performing Organization Address [facility] Co de Phone Number [facility] [address] [place] [phone] * Lactic Acid (10/11/2022 11:39 AM EST) Lactic Acid 1.0 0.5 - 2.0 mmol/L [facility] 10/11/2022 11:3 9 AM EST 10/11/2022 11:44 AM EST [facility] External Provider LAB BLO OD ORDERABLES Final Result Performing Organization Address [facility] Co de Phone Number [facility] [address] [place] [phone] * Magnesium (10/11/2022 11:38 AM EST) Magnesium 1.8 1.6 - 2.6 mg/dL [facility] 10/11/2022 11:3 8 AM EST 10/11/2022 11:44 AM EST [facility] External Provider LAB BLO OD ORDERABLES Final Result [facility] [address] [place] [phone] * Comprehensive Metabolic Panel (10/11/2022 11:38 AM EST) Sodium 140 135 - 145 mmol/L [facility] Potassium 3.9 3.3 - 5.1 mmol/L [facility] Chloride 108 96 - 108 mmol/L [facility] Carbon Dioxide 22 22 - 29 mmol/L [facility] Anion Gap 14 12 - 20 [facility] Urea Nitrogen (BUN) 16 9 - 16 mg/dL [facility] Creatinine, Serum 0.70 0.5 - 1.4 mg/dL [facility] Creatinine Clr Calc Pharmacy 83.4 [facility] Comment:Provided height and weight: 162.56 cm,72.575 kg.eGFR (calculated from the MDRD study equation) and eCrCl(calculated from the Cockcroft-Gault equation) are based ondifferent parameters and may not yield comparable results.If eCrCl result is absurd, please check patient'sheight/weight. Estimated Glomerular Filt Rate >60 [facility] Comment:NOTE: For -Am erican individuals, multiply the result by 1.210.Chronic Kidney Disease: Estimated GFR < 60 mL/min/1.49r0Blisbv Kidney Disease: Estimated GFR < 15 mL/min/1.73m2 Glucose 86 60 - 115 mg/dL [facility] Calcium 9.5 8.4 - 10.2 mg/dL [facility] Bilirubin, Total 0.3 0.0 - 1.0 mg/dL [facility] Aspartate Amino Transferase 20 5 - 31 U/L [facility] Alanine Aminotransferase 19 0 - 31 U/L [facility] Total Protein 7.3 6.5 - 8.0 g/dL [facility] Albumin Level 4.1 3.5 - 5.0 g/dL [facility] Alkaline Phosphatase 114 39 - 117 U/L [facility] 10/11/2022 11:3 8 AM EST 10/11/2022 11:44 AM EST [facility] External Provider LAB BLO OD ORDERABLES Final Result Performing Organization Address [facility] Co de Phone Number [facility] [address] [place] [phone] * Prothrombin Time-INR (10/11/2022 11:38 AM EST) Prothrombin Time 11.5 10.0 - 13.1 SEC [facility] INTERNATIONAL NORM RATIO 1.0 0.9 - 1.1 [facility] Comment:INTERNATIONAL NORMAL IZED RATIO (INR) REFERENCE [...] 8 AM EST 10/11/2022 11:44 AM EST [facility] External Provider LAB BLO OD ORDERABLES Final Result Performing Organization Address [facility] Co de Phone Number [facility] [address] [place] [phone] * (ABNORMAL) CBC auto differential (10/11/2022 11:38 AM EST) White Blood Count 12.0(H) 4.8 - 10.8 X10*3/uL [facility] Red Blood Count 4.60 4.20 - 5.50 X10*6/uL [facility] Hemoglobin 11.0(L) 12.0 - 16.0 g/dl [facility] Hematocrit 36.0(L) 37.0 - 47.0 % [facility] Mean Corpuscular Volume 78.3(L) 80.0 - 98.0 fL [facility] Mean Corpuscular Hemoglobin 23.9(L) 27.0 - 33.0 pg [facility] Mean Corpuscular HGB Conc 30.6(L) 31.0 - 35.0 g/dl [facility] Red Cell Distribution Width 16.9(H) 11.0 - 16.0 % [facility] Platelet Count 246 160 - 400 X10*3/uL [facility] Mean Platelet Volume 10.3 9.4 - 12.3 fL [facility] Neutrophils Percent Auto 69.8 45 - 73 % [facility] Imm Gran Pct Auto 0.3 0.0 - 0.4 % [facility] Lymphocytes Percent Auto 21.8 20 - 40 % [facility] Monocytes Percent Auto 5.8 2 - 11 % [facility] Eosinophils Percent Auto 2.0 0 - 4 % [facility] Basophils Percent Auto 0.3 0 - 2 % [facility] NRBC Pct Auto 0.0 0.0 - 0.2 /100WBC [facility] Neutrophils Absolute Auto 8.4(H) 2.0 - 8.3 x10*3/uL [facility] Imm Gran Abs Auto 0.04(H) 0.00 - 0.03 X10*3/uL [facility] Lymphocytes Absolute Auto 2.6 1.2 - 4.9 X10*3/uL [facility] Monocytes Absolute Auto 0.7 0.1 - 1.2 X10*3/uL [facility] Eosinophils Absolute Auto 0.2 0.0 - 0.4 X10*3/uL [facility] Basophils Absolute Auto 0.0 0.0 - 0.2 X10*3/uL [facility] NRBC Abs Auto 0.000 0.0 - 0.012 X10*3/uL [facility] 10/11/2022 11:3 8 AM EST 10/11/2022 11:44 AM EST us [facility] External Provider LAB BLO OD ORDERABLES Final Result Performing Organization Address City/State/[facility] Co de Phone Number [facility] [address] [place] [phone] documented in this encounter Visit Diagnoses Not on filedocumented in this encounter Care Teams Director Occupational Relationship Specialty Start Date End Date Lilly Cowart MD [address] [place] [phone] PCP - General Family Medicine 11/16/21 documented as of this encounter
--- NOTE | 2024-10-18 15:31 | ED_ITS ---
HPI - Headache General Chief Complaint: Headache Stated Complaint: HEAD PAIN Time Seen by Provider: 10/18/24 15:31 Source: patient History of Present Illness ED Provider: Silvio Heard DO HPI Narrative: 64-year-old female with past medical history of hypertension, asthma, depression, fibromyalgia, chronic pain syndrome, chronic kidney disease, anemia and migraines presents to the ED for persistent posterior and right-sided headache and neck pain. Patient was evaluated here several days ago on 10/12/2024 for similar symptoms. Her symptoms at that time were treated with metoclopramide, diphenhydramine, morphine and ondansetron with improvement. Patient states her pain has been persistent although it was improved briefly during her previous visit. She does not see a neurologist. She states she takes her prescribed medication which per record view shows sumatriptan. She reports the right side of her neck and right shoulder are also painful, specifically when she moves. The pain does not cross the right side of the head. She has some associated blurred vision with it but denies other symptoms including numbness or weakness of the arms or legs, saddle anesthesia, midline neck or back pain or recent procedures of the spine. Related Data Home Medications ?Medication ?Instructions ?Recorded ?Confirmed acetaminophen 650 mg 2 tab PO Q8H PRN pain 10/11/22 05/15/24 tablet,extended release lisinopril 40 mg tablet 1 tab PO DAILY 10/11/22 05/15/24 metoprolol succinate 25 mg 1 tab PO DAILY 10/11/22 05/15/24 tablet,extended release 24 hr sumatriptan succinate 25 mg tablet 25 mg PO DAILY PRN Migraine 10/11/22 05/15/24 Headache celecoxib 50 mg capsule 50 mg PO DAILY 05/08/23 05/15/24 duloxetine 60 mg capsule,delayed 60 mg PO DAILY 02/09/24 05/15/24 release trazodone 100 mg tablet 100 mg PO BEDTIME 02/09/24 05/15/24 albuterol sulfate 90 mcg/actuation 2 puff inhalation Q4-6H PRN 05/15/24 05/15/24 aerosol inhaler (Ventolin HFA) wheezing multivitamin-ferrous 1 tab PO QAM 05/15/24 05/15/24 fumarate-folic acid 18 mg-400 mcg tablet (Tab-A-Iraj Multivitamin w-iron) Previous Rx's ?Medication ?Instructions ?Recorded cefuroxime axetil 500 mg tablet 500 mg PO BID #12 tabs 05/20/24 diphenhydramine HCl 25 mg capsule 50 mg (2 x 25 mg) PO TID PRN 08/06/24 (Benadryl) allergic reaction #14 caps diphenhydramine HCl 25 mg capsule 50 mg (2 x 25 mg) PO Q6H PRN 10/12/24 headache, nausea, vomiting #20 caps metoclopramide HCl 10 mg tablet 10 mg PO Q6H PRN nausea and 10/12/24 (Reglan) vomiting #14 tabs morphine 15 mg immediate release 15 mg PO Q6H PRN pain #10 tabs 10/12/24 tablet metoclopramide HCl 5 mg tablet 5 mg PO DAILY #7 tabs 10/18/24 (Reglan) Allergies Allergy/AdvReac Type Severity Reaction Status Date / Time buspirone [From BuSpar] Allergy Mild Tongue Verified 10/18/24 14:39 Swelling, dizziness melatonin Allergy Itching Verified 10/18/24 14:39 ibuprofen [From Motrin] AdvReac Mild Rash, HTN Verified 10/18/24 14:39 Review of Systems Review of Systems: Yes all other systems are reviewed and are negative PMFSH Past Medical History Medical History Cellulitis of right lower extremity Fibromyalgia Chronic pain syndrome Neurogenic bladder, NOS Chronic kidney disease, stage 3 Hypertension Anemia Depression Cervical cancer Breast pain Back pain with right-sided radiculopathy Asthma Recurrent cellulitis of lower extremity History of cervical cancer Dyspnea on exertion HTN (hypertension) Anemia Migraines Arthritis Fibromyalgia, primary Surgical History History of right knee joint replacement H/O: hysterectomy Social History Social History Household Members: Other Household Members Other:: sister Housing: House Do you presently have visiting nurse or other home services: Yes ([employer] 10 hours a week) Alcohol intake: never Comment: refusing fall risk interventions. Patient Tobacco Use Status: Current everyday Tobacco user Tobacco use type: Cigarette Cigarette Packs Per Day: 0.4 Cigarettes Per Day: 5 Years Smoked: 40 Smoked in Last 30 Days: Yes e-Cigarette/Vaping Use: Never Used Second Hand Smoke Exposure: No Use of substances other than those prescribed or required for medical reasons: No Advance Directives: No Advance Directives Information Provided: No Advance Directives Date on File: 05/21/24 Do you have a plan to hurt others: No Plan Patient : No service: No Current occupational status: unemployed Physical Exam Vital Signs: Vital Signs: Last Vital Signs Temp 97.7 F 10/18/24 17:21 Pulse 57 10/18/24 17:21 Resp 18 10/18/24 17:21 BP 124/70 10/18/24 17:21 Pulse Ox 100 10/18/24 17:21 O2 Del Method Room Air 10/18/24 17:21 BMI result Body Mass Index 32.1 Constitutional: ?Appears to be in mild acute distress, complaining of the overhead lights bothering her. Alert, oriented, speaking in full sentences HEENT: ?Normocephalic, atraumatic. ?Moist mucous membranes Eyes: ?PERRL, EOMI Neck: ?Supple, nontender midline, some right-sided tenderness over the trapezius Chest: ?No chest wall tenderness Respiratory: ?Lungs clear to auscultation, no increased work of breathing Cardio: ?Regular rate and rhythm, no murmur, 2+ radial and DP pulses s ymmetrically GI: ?Soft, nondistended, nontender Back: ?Normal range of motion, nontender Skin: ?No rash, no lesions Neuro: ?Alert and oriented to person, place and time, moves all 4 extremities, no focal deficits, 5/5 strength and sensation fully intact of the bilateral upper and lower extremities Extremities: ?No swelling or tenderness, full range of motion Psych: ?Calm, alert and cooperative, appropriate behavior Medications Administered Discontinued Medications Generic Name Dose Route Start Last Admin Trade Name Freq PRN Reason Stop Dose Admin Diphenhydramine HCl 25 mg 10/18/24 15:43 10/18/24 16:30 Diphenhydramine Hcl 50 Mg/Ml Vial IVPUSH 10/18/24 15:44 25 mg ONCE ONE Administration Acetaminophen 1,000 mg in 100 mls @ 400 mls/hr 10/18/24 15:43 10/18/24 16:46 Ofirmev IV 10/18/24 15:57 Infused ONCE ONE Infusion Iohexol 100 ml 10/18/24 17:09 10/18/24 17:09 Iohexol 350 Mg/Ml 100 Ml Infus..Btl IV 10/18/24 17:10 70 ml ONCE ONE Administration Metoclopramide HCl 10 mg 10/18/24 15:43 10/18/24 16:30 Metoclopramide Hcl 10 Mg/2 Ml Vial IVPUSH 10/18/24 15:44 10 mg ONCE ONE Administration Medical Decision Making Medical Decision Making [facility] Narrative: Patient presenting with persistent headache. I highly doubt the patient has a large tumor or intracranial hemorrhage as the headache has been persistent for about 1 month. She is requesting an MRI due to this pain being new for the past month. She also has neck pain. I find it is reasonable as this is her 2nd visit in several days to further evaluate with CT imaging with angiography of the head and neck. The patient will receive a migraine cocktail as well. I do not suspect cavernous sinus thrombosis or idiopathic intracranial hypertension. She has no pain over the temporal region and I do not suspect drank cell arteritis. We will evaluate for improvement with symptoms and provide referral to Neurology if unremarkable findings. CT imaging shows no acute abnormalities. There are chronic findings which includes: High-grade bilateral vertebral artery origin stenoses. The patient has some improvement in her headache from migraine cocktail. She has had no recent NSAID therapy and recent creatinine was unremarkable. Therefore, we will administer 15 mg of ketorolac. She is overall well- appearing. We will have her follow up with her primary care provider and a neurologist for further management and return with any worsening symptoms. Patient agrees with this plan. Admission/Observation Consideration of admission/observation: Escalation of care including admission/observation considered Independent Interpretation I performed an independent interpretation of an: EKG Interpretation: Normal sinus rhythm at 69 beats per minute, LVH criteria met in aVL, left axis deviation, unremarkable intervals, some T-wave flattening in V3, no diagnostic ST wave elevation although there is subtle elevation in V2 without contiguous leads, compared to prior dated 10/12/2024 there are no significant changes. Discharge Plan Discharge Clinical Impression: Headache Qualifiers: Headache type: unspecified Headache chronicity pattern: chronic headache Patient Disposition: Home, Self-Care Instructions: General Headache (ED) Additional Instructions: You have been examined for a headache in the emergency department today. CT imaging with angiography of your brain and neck were unremarkable. There are chronic findings which includes: High-grade bilateral vertebral artery origin stenoses. This is narrowing of the arteries as discussed. Please follow up with her primary care provider regarding this. Please follow up with your primary care physician to ensure that you are recovering as expected. We also recommend that you follow up with a neurologist since your head pain is chronic. Although no evidence of an immediately life-threatening condition was found at the time of examination today, you should return immediately if you develop ANY new or worsening symptoms, especially sudden increase in pain, change in your vision, vomiting, fevers, or numbness/weakness in your arms or legs. When you return home, you should lie in a cool dark room and minimize sounds and other distractions while you rest. Thank you for choosing us for your care. Prescriptions: New metoclopramide HCl [Reglan] 5 mg tablet 5 mg PO DAILY Qty: 7 0RF No Action sumatriptan succinate 25 mg tablet 25 mg PO DAILY PRN (Reason: Migraine Headache) Rx Instructions: MRX1 2 hours later if needed metoprolol succinate 25 mg tablet extended release 24 hr 1 tab PO DAILY lisinopril 40 mg tablet 1 tab PO DAILY acetaminophen 650 mg tablet extended release 2 tab PO Q8H PRN (Reason: pain) celecoxib 50 mg capsule 50 mg PO DAILY albuterol sulfate [Ventolin HFA] 90 mcg/actuation HFA aerosol inhaler 2 puff INHALATION Q4-6H PRN (Reason: wheezing) Tab-A-Iraj Multivitamin w-iron 18-400 mg-mcg tablet 1 tab PO QAM cefuroxime axetil 500 mg tablet 500 mg PO BID Qty: 12 0RF diphenhydramine HCl [Benadryl] 25 mg capsule 50 mg PO TID PRN (Reason: allergic reaction) Qty: 14 0RF trazodone 100 mg tablet 100 mg PO BEDTIME duloxetine 60 mg capsule,delayed release(DR/EC) 60 mg PO DAILY diphenhydramine HCl 25 mg capsule 50 mg PO Q6H PRN (Reason: headache, nausea, vomiting) Qty: 20 0RF morphine 15 mg tablet 15 mg PO Q6H PRN (Reason: pain) Qty: 10 0RF Rx Instructions: Patient may request partial fill; Partial Fill upon patient request. metoclopramide HCl [Reglan] 10 mg tablet 10 mg PO Q6H PRN (Reason: nausea and vomiting) Qty: 14 0RF Referrals: [facility] [place] Neuro/Sleep [Provider Group] (Chronic headache for the past month, on sumatriptan with no improvement, does not have a neurologist) Print Language: Kyrgyz
[2024-10-18] MEDS: Acetaminophen 1,000 MG/100 ML PIGGYBACK 400 MG IV (16:30)
[2024-10-18] MEDS: diphenhydrAMINE HCL 50 MG/ML VIAL 25 MG IVPUSH (16:30)
[2024-10-18] MEDS: Metoclopramide HCl 10 MG/2 ML VIAL IVPUSH (16:30)
[2024-10-18] MEDS: iohexoL 350 MG/ML 100 ML INFUS..BTL IV (17:09)
[2024-10-18 17:21] VITALS: BP 124/70; PULSE 57; RESP 18; TEMP 36.5; O2SAT 100
[2024-10-18] MEDS: Ketorolac Tromethamine 15 MG/ML VIAL IVPUSH (19:30)
[2024-10-18 19:32] VITALS: BP 124/70; PULSE 57; RESP 18; TEMP 36.5; O2SAT 100
== END 2024-10-18 19:37 | disposition home or self-care (01) ==
PROVIDERS: Emergency Provider Emergency Medicine
DX: R51.9 Headache, unspecified (principal); I12.9 Hypertensive chronic kidney disease with stage 1 through stage 4 chronic kidney disease, or unspecified chronic kidney disease; N18.30 Chronic kidney disease, stage 3 unspecified; J45.909 Unspecified asthma, uncomplicated; F17.210 Nicotine dependence, cigarettes, uncomplicated
CPT/HCPCS: 70496; 70498; 93005; 96365; 96375; 99284; 99285; J0131; J1200; J1885; J2765; Q9967

== ENCOUNTER → 2024-10-18 14:09 | Outpatient (BNV) | payer MEDICAID, SELFPAY | PROVIDERS: Emergency Provider Emergency Medicine; Visit Provider Internal Medicine | DX: I42.2 Other hypertrophic cardiomyopathy (principal) | CPT/HCPCS: 93010 ==

== ENCOUNTER → 2024-10-18 15:43 | Outpatient (BNV) | payer MEDICAID, SELFPAY | PROVIDERS: Emergency Provider Emergency Medicine; Visit Provider Radiology Diagnostic Radiology | DX: I65.03 Occlusion and stenosis of bilateral vertebral arteries (principal) | CPT/HCPCS: 70496; 70498 ==

== ENCOUNTER 2024-10-30 14:34 | Emergency (ER) | payer MEDICAID, SELFPAY ==
--- NOTE | 2024-10-30 14:42 | ED.NEUROSD ---
HPI - Neuro Symptoms/Deficit General Chief Complaint: Headache Stated Complaint: R SIDE BENÍTEZ,SEEN FOR SAME/NO DX PER EMS Time Seen by Provider: 10/30/24 14:39 History of Present Illness HPI Narrative: 64-year-old female with a history of hypertension, asthma, depression, fibromyalgia, chronic pain syndrome, chronic kidney disease, anemia and migraines who presents emergency department for evaluation of elevated blood pressure, right-sided neck and right-sided head pain with symptoms starting at 14:00 hours. The patient states she was watching television when she had a sudden onset of pressure in the right posterior aspect of her neck. She states the pressure then radiated up the back of her neck to her head and to the right side of her forehead. She states the pain is a constant pressure-like pain which is 10/10 at its worst. She states she felt lightheaded and dizzy as if she was going to faint. She states she had blurred vision and photophobia. She denied nausea vomiting. She states that she feels weak all over. She denied fever. She states she did have chills. The patient does have a history of migraines but she states this pain is different than her migraine headache pain. The patient was seen by me on 10/12/2023 with a right-sided headache and neck pain that lasted for 2 weeks. At that time I felt that the patient had an acute migraine syndrome. Patient was also seen on 10/18/2024. Patient was also seen on 10/18/2024 for similar headache. At that time she had a CT scan which was negative. She had a CT angiogram which revealed high-grade bilateral retrieval artery origin stenosis but otherwise was negative. The patient states she did follow-up with her neurologist at [facility] and their recommendation was that she get an MRI as an outpatient through her PCP. Related Data Home Medications ?Medication ?Instructions ?Recorded ?Confirmed acetaminophen 650 mg 2 tab PO Q8H PRN pain 10/11/22 05/15/24 tablet,extended release lisinopril 40 mg tablet 1 tab PO DAILY 10/11/22 05/15/24 metoprolol succinate 25 mg 1 tab PO DAILY 10/11/22 05/15/24 tablet,extended release 24 hr sumatriptan succinate 25 mg tablet 25 mg PO DAILY PRN Migraine 10/11/22 05/15/24 Headache celecoxib 50 mg capsule 50 mg PO DAILY 05/08/23 05/15/24 duloxetine 60 mg capsule,delayed 60 mg PO DAILY 02/09/24 05/15/24 release trazodone 100 mg tablet 100 mg PO BEDTIME 02/09/24 05/15/24 albuterol sulfate 90 mcg/actuation 2 puff inhalation Q4-6H PRN 05/15/24 05/15/24 aerosol inhaler (Ventolin HFA) wheezing multivitamin-ferrous 1 tab PO QAM 05/15/24 05/15/24 fumarate-folic acid 18 mg-400 mcg tablet (Tab-A-Iraj Multivitamin w-iron) Previous Rx's ?Medication ?Instructions ?Recorded cefuroxime axetil 500 mg tablet 500 mg PO BID #12 tabs 05/20/24 diphenhydramine HCl 25 mg capsule 50 mg (2 x 25 mg) PO TID PRN 08/06/24 (Benadryl) allergic reaction #14 caps diphenhydramine HCl 25 mg capsule 50 mg (2 x 25 mg) PO Q6H PRN 10/12/24 headache, nausea, vomiting #20 caps metoclopramide HCl 10 mg tablet 10 mg PO Q6H PRN nausea and 10/12/24 (Reglan) vomiting #14 tabs morphine 15 mg immediate release 15 mg PO Q6H PRN pain #10 tabs 10/12/24 tablet metoclopramide HCl 5 mg tablet 5 mg PO DAILY #7 tabs 10/18/24 (Reglan) [id number] 250 2 tab PO Q6H PRN headache #20 tabs 10/30/24 mg-250 mg-65 mg tablet (Excedrin Extra Strength) diphenhydramine HCl 25 mg capsule 50 mg (2 x 25 mg) PO Q6H PRN 10/30/24 headache, nausea, vomiting #20 caps metoclopramide HCl 10 mg tablet 10 mg PO Q6H PRN nausea and 10/30/24 (Reglan) vomiting #20 tabs morphine 15 mg immediate release 15 mg PO Q8H PRN pain #4 tabs 10/30/24 tablet Allergies Allergy/AdvReac Type Severity Reaction Status Date / Time buspirone [From BuSpar] Allergy Mild Tongue Verified 10/30/24 15:25 Swelling, dizziness melatonin Allergy Itching Verified 10/30/24 15:25 ibuprofen [From Motrin] AdvReac Mild Rash, HTN Verified 10/30/24 15:25 Review of Systems Review of Systems: Yes all other systems are reviewed and are negative [facility] Past Medical History Medical History Cellulitis of right lower extremity Fibromyalgia Chronic pain syndrome Neurogenic bladder, NOS Chronic kidney disease, stage 3 Hypertension Anemia Depression Cervical cancer Breast pain Back pain with right-sided radiculopathy Asthma Recurrent cellulitis of lower extremity History of cervical cancer Dyspnea on exertion HTN (hypertension) Anemia Migraines Arthritis Fibromyalgia, primary Surgical History History of right knee joint replacement H/O: hysterectomy Social History Social History Household Members: Other Household Members Other:: sister Housing: House Do you presently have visiting nurse or other home services: Yes (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 Patient Tobacco Use Status: Current everyday Tobacco user Tobacco use type: Cigarette Cigarette Packs Per Day: 0.4 Cigarettes Per Day: 5 Years Smoked: 40 e-Cigarette/Vaping Use: Never Used Second Hand Smoke Exposure: No Advance Directives: Yes Advance Directives on File: Yes Advance Directives Date on File: 05/21/24 Do you have a plan to hurt others: No Plan service: No Current occupational status: unemployed Physical Exam Vital Signs: Vital Signs: Last Vital Signs Temp 98.4 F 10/30/24 15:22 Pulse 70 10/30/24 15:22 Resp 15 10/30/24 15:22 BP 148/89 H 10/30/24 15:22 Pulse Ox 98 10/30/24 15:22 O2 Del Method Room Air 10/30/24 15:22 BMI result Body Mass Index 26.6 Vital signs revealed an elevated blood pressure of 148/89 otherwise unremarkable Exam: General: Awake, patient appears to be anxious, she was in distress secondary to her headache Head: Normocephalic, atraumatic EENT: PERRL, Lids normal, sclera normal, conjunctiva normal, nose normal , ears normal, throat without erythema or exudates Neck: Supple, patient has tenderness palpation of her trapezius muscles bilaterally, she also has tenderness palpation of the right occipital scalp muscles. Lung: breath sounds symmetric, no wheezing, rales or rhonchi Chest: symmetric movement, nontender Heart: regular rate and rhythm, normal S1, S2 no murmurs or rubs Abdomen: soft, non-tender, nondistended, normal bowel sounds Back: no vertebral tenderness, no CVAT Extremities: no deformities, moves all extremities symmetrically Neuro: Awake, alert, oriented, normal speech, cranial nerves intact, moves all extremities symmetrically Psych: Pleasant, cooperative Medical Decision Making Medical Decision Making MDM Narrative: 64-year-old female with a history of hypertension, asthma, depression, fibromyalgia, chronic pain syndrome, chronic kidney disease, anemia and migraines who presents emergency department for evaluation of elevated blood pressure, right-sided neck and right-sided head pain with symptoms starting at 14:00 hours. Patient's vital signs did reveal elevated blood pressure otherwise unremarkable. Exam did reveal significant tenderness palpation of her trapezius muscles bilaterally and her right occipital scalp muscles. Neurologic exam was nonfocal. Differential diagnosis: ?Includes but is not limited to intracranial bleed, subarachnoid hemorrhage, giant cell arteritis, migraine syndrome, headache syndrome, anemia, electrolyte abnormalities Course: 16:49 The patient was treated with morphine 4 mg IV, Reglan 10 mg IV and Benadryl 50 mg IV. Patient states she was complete resolution of her pain. Given her history of chronic migraines and her recent negative CT head and CT angiogram of the head and neck, I do not think that the patient has an intracranial bleed as the cause of her symptoms. Patient's presentation is most consistent with a migraine syndrome. Patient states she was feeling significantly better after the above treatment. Patient will be discharged home with a prescription for Reglan 10 mg, Benadryl 50 mg, Excedrin migraine 2 tablets every 6 hours as needed for pain. Patient was concerned that this may not relieve her pain in his requesting morphine in the event that the pain is not relieved by the migraine cocktail.I did review the patient's [place] prescription monitoring program on this patient. The patient does get prescriptions for oxycodone are regular basis. Given the severity of her pain, I will prescribed morphine 15 mg every 6 hours as needed for pain and dispense only 4 tablets. Admission/Observation Consideration of admission/observation: Escalation of care including admission/observation considered (No) Lab Data MDM Lab Attestation statement: I reviewed the patient's lab results. Independent Historian Clinical information obtained from an independent historian. History obtained from or confirmed by: Spouse Chronic Conditions Patient?s care impacted by: Hypertension and Other (Fibromyalgia) Discharge Plan Discharge Clinical Impression: Migraine Patient Disposition: Home, Self-Care Additional Instructions: Your symptoms are consistent with a migraine.I want you to take the following 3 medications together every 6 hours as needed for headache, nausea or vomiting. Reglan (metoclopramide) in 10 mg, 1 pill Benadry (diphenhydramine) l 25 mg, 2 pills Excedrin migraine (acetaminophen, aspirin, caffeine), 2 pills. For pain not relieved by these medications, I am prescribing morphine 15 mg pills, 1 pill every 6 hours as needed for pain. This medication will make you sleepy, do not drive or work while taking this medication. Do not take oxycodone why you are taking morphine. Morphine is a narcotic medication and can be addicting. If you are concerned about addiction you can ask the pharmacist for less pills or do not get this prescription filled. After you take these medications, lie down in a dark quiet room and try to fall asleep. ?These medications will make you sleepy, do not drive or work after taking these medications. Follow-up with your doctor in 2 days. Please return to the emergency department if your symptoms get worse or if you develop any symptoms that are concerning to you. Prescriptions: New diphenhydramine HCl 25 mg capsule 50 mg PO Q6H PRN (Reason: headache, nausea, vomiting) Qty: 20 0RF morphine 15 mg tablet 15 mg PO Q8H PRN (Reason: pain) Qty: 4 0RF Rx Instructions: Partial Fill upon patient request. Excedrin Extra Strength 250-250-65 mg tablet 2 tab PO Q6H PRN (Reason: headache) Qty: 20 0RF metoclopramide HCl [Reglan] 10 mg tablet 10 mg PO Q6H PRN (Reason: nausea and vomiting) Qty: 20 0RF No Action sumatriptan succinate 25 mg tablet 25 mg PO DAILY PRN (Reason: Migraine Headache) Rx Instructions: MRX1 2 hours later if needed metoprolol succinate 25 mg tablet extended release 24 hr 1 tab PO DAILY lisinopril 40 mg tablet 1 tab PO DAILY acetaminophen 650 mg tablet extended release 2 tab PO Q8H PRN (Reason: pain) celecoxib 50 mg capsule 50 mg PO DAILY albuterol sulfate [Ventolin HFA] 90 mcg/actuation HFA aerosol inhaler 2 puff INHALATION Q4-6H PRN (Reason: wheezing) Tab-A-Iraj Multivitamin w-iron 18-400 mg-mcg tablet 1 tab PO QAM cefuroxime axetil 500 mg tablet 500 mg PO BID Qty: 12 0RF diphenhydramine HCl [Benadryl] 25 mg capsule 50 mg PO TID PRN (Reason: allergic reaction) Qty: 14 0RF metoclopramide HCl [Reglan] 5 mg tablet 5 mg PO DAILY Qty: 7 0RF trazodone 100 mg tablet 100 mg PO BEDTIME duloxetine 60 mg capsule,delayed release(DR/EC) 60 mg PO DAILY diphenhydramine HCl 25 mg capsule 50 mg PO Q6H PRN (Reason: headache, nausea, vomiting) Qty: 20 0RF morphine 15 mg tablet 15 mg PO Q6H PRN (Reason: pain) Qty: 10 0RF Rx Instructions: Patient may request partial fill; Partial Fill upon patient request. metoclopramide HCl [Reglan] 10 mg tablet 10 mg PO Q6H PRN (Reason: nausea and vomiting) Qty: 14 0RF Print Language: Romansh
[2024-10-30 15:22] VITALS: BP 148/89; BP 175/90; PULSE 70; PULSE 84; RESP 15; TEMP 36.9; O2SAT 95; O2SAT 98; BMI 26.6
--- OUTSIDE RECORDS SUMMARY | 2024-10-30 15:37 | XMS_ITS | Encounter Summary ---
Author Organization [employer] Address [address] [facility] [address] [place] [address] Care Team Providers Care Senior Cost Analyst Name Role Phone Lilly Cowart MD Primary Care Provider Encounter Details Date Type Department Care Team (Late st Contact Info) Description 08/30/2022 Orders Only [facility] MED & PEDS [address] [place] [address] Lindsey Salcedo LPN Social History Tobacco Use Types Packs/Day Years Used Date Smoking Tobacco: Never Assessed Comments Unknown Sex and Gender Information Value Date Recorded Sex Assigned at Female 07/17/2022 10:14 AM EDT Legal Sex Female 10:14 AM EDT Gender Identity Female 07/17/2022 10:14 AM EDT Sexual Orientation Straight 07/17/2022 10 :14 AM EDT documented as of this encounter Plan of Treatment Upcoming Encounters Date Type Department Care Team (Late st Contact Info) Description 11/14/2024 3:30 PM EST Office Visit [facility] MEDICINE [address] [place] [address] Lilly Cowart MD [address] [place] [address] 11/24/2024 3:15 PM EDT Office Visit [facility] OPTOMETRY [address] [place] [address] Vandana Avila OD [address] [place] [address] documented as of this encounter Procedures Procedure [...] (12/07/2022 11:34 AM EDT) Color Urine Yellow [facility] Appearance Urine Clear [facility] PH 6.5 5.0 - 9.0 [facility] Glucose Urine UA Negative Negative mg/dL [facility] Urine Blood Negative Negative [facility] Specific [place] - Urine >=1.030(H) 1.005 - 1.025 [facility] Urine Protein Negative Neg-Trace mg/dL [facility] Urine Ketones Negative Negative mg/dL [facility] Nitrite Urine Negative Negative [facility] Leukocyte Esterase Urine Negative Negative [facility] RBC Urine 0-2 0 - 2 /HPF [facility] Urine WBC 0-5 0 - 5 /HPF [facility] Urine Squamous Epithelial Cell 0-2 0 - 2 /HPF [facility] Urine Bacteria None Seen None Seen [facility] Hyaline Casts, Urine 0-2 0 - 2 /LPF [facility] 12/07/2022 11:3 4 AM EDT 12/07/2022 11:37 AM EDT Narrative [facility] - 12/07/2022 11:45 AM EDT 1131Urine, Catheterized us [facility] External Provider LAB URI NE ORDERABLES Final Result [facility] [address] [place] [address] [phone] * (ABNORMAL) Comprehensive Metabolic Panel, Fasting (12/07/2022 9:57 AM EDT) Sodium 140 135 - 145 mmol/L [facility] Potassium 4.0 3.3 - 5.1 mmol/L [facility] Chloride 108 96 - 108 mmol/L [facility] Carbon Dioxide 21(L) 22 - 29 mmol/L [facility] Anion Gap 15 12 - 20 [facility] Urea Nitrogen (BUN) 14 9 - 16 mg/dL [facility] Creatinine, Serum 0.79 0.5 - 1.4 mg/dL [facility] Creatinine Clr Calc Pharmacy 76.2 [facility] Comment:Provided height and weight: 162.56 cm,77.564 kg.eGFR (calculated from the MDRD study equation) and eCrCl(calculated from the Cockcroft-Gault equation) are based ondifferent parameters and may not yield comparable results.If eCrCl result is absurd, please check patient'sheight/weight. Estimated Glomerular Filt Rate >60 [facility] Comment:NOTE: For -Am erican individuals, multiply the result by 1.210.Chronic Kidney Disease: Estimated GFR < 60 mL/min/1.66w6Emmfcp Kidney Disease: Estimated GFR < 15 mL/min/1.73m2 Glucose Fasting 88 60 - 99 mg/dL [facility] Calcium 9.7 8.4 - 10.2 mg/dL [facility] Bilirubin, Total 0.4 0.0 - 1.0 mg/dL [facility] Aspartate Amino Transferase 17 5 - 31 U/L [facility] Alanine Aminotransferase 17 0 - 31 U/L [facility] Total Protein 7.3 6.5 - 8.0 g/dL [facility] Albumin Level 4.2 3.5 - 5.0 g/dL [facility] Alkaline Phosphatase 92 39 - 117 U/L [facility] 12/07/2022 9:57 AM EDT 12/07/2022 10:02 AM EDT us [facility] External Provider LAB BLO OD ORDERABLES Final Result [facility] [address] [place] [phone] * (ABNORMAL) CBC auto differential (12/07/2022 9:57 AM EDT) White Blood Count 8.3 4.8 - 10.8 X10*3/uL [facility] Red Blood Count 4.29 4.20 - 5.50 X10*6/uL [facility] Hemoglobin 10.2(L) 12.0 - 16.0 g/dl [facility] Hematocrit 33.5(L) 37.0 - 47.0 % [facility] Mean Corpuscular Volume 78.1(L) 80.0 - 98.0 fL [facility] Mean Corpuscular Hemoglobin 23.8(L) 27.0 - 33.0 pg [facility] Mean Corpuscular HGB Conc 30.4(L) 31.0 - 35.0 g/dl [facility] Red Cell Distribution Width 17.2(H) 11.0 - 16.0 % [facility] Platelet Count 284 160 - 400 X10*3/uL [facility] Mean Platelet Volume 10.3 9.4 - 12.3 fL [facility] Neutrophils Percent Auto 45.6 45 - 73 % [facility] Imm Gran Pct Auto 0.2 0.0 - 0.4 % [facility] Lymphocytes Percent Auto 42.9(H) 20 - 40 % [facility] Monocytes Percent Auto 7.2 2 - 11 % [facility] Eosinophils Percent Auto 3.6 0 - 4 % [facility] Basophils Percent Auto 0.5 0 - 2 % [facility] NRBC Pct Auto 0.0 0.0 - 0.2 /100WBC [facility] Neutrophils Absolute Auto 3.8 2.0 - 8.3 x10*3/uL [facility] Imm Gran Abs Auto 0.02 0.00 - 0.03 X10*3/uL [facility] Lymphocytes Absolute Auto 3.6 1.2 - 4.9 X10*3/uL [facility] Monocytes Absolute Auto 0.6 0.1 - 1.2 X10*3/uL [facility] Eosinophils Absolute Auto 0.3 0.0 - 0.4 X10*3/uL [facility] Basophils Absolute Auto 0.0 0.0 - 0.2 X10*3/uL [facility] NRBC Abs Auto 0.000 0.0 - 0.012 X10*3/uL [facility] 12/07/2022 9:57 AM EDT 12/07/2022 10:02 AM EDT us [facility] External Provider LAB BLO OD ORDERABLES Final Result [facility] [address] [place] [address] [phone] * (ABNORMAL) Comprehensive Metabolic Panel (10/23/2022 10:53 AM EST) Sodium 139 135 - 145 mmol/L [facility] Potassium 4.3 3.3 - 5.1 mmol/L [facility] Chloride 108 96 - 108 mmol/L [facility] Carbon Dioxide 23 22 - 29 mmol/L [facility] Anion Gap 12 12 - 20 [facility] Urea Nitrogen (BUN) 18(H) 9 - 16 mg/dL [facility] Creatinine, Serum 0.87 0.5 - 1.4 mg/dL [facility] Creatinine Clr Calc Pharmacy 67.1 [facility] Comment:Provided height and weight: 162.56 cm,72.575 kg.eGFR (calculated from the MDRD study equation) and eCrCl(calculated from the Cockcroft-Gault equation) are based ondifferent parameters and may not yield comparable results.If eCrCl result is absurd, please check patient'sheight/weight. Estimated Glomerular Filt Rate >60 [facility] Comment:NOTE: For -Am erican individuals, multiply the result by 1.210.Chronic Kidney Disease: Estimated GFR < 60 mL/min/1.62m5Jzires Kidney Disease: Estimated GFR < 15 mL/min/1.73m2 Glucose 82 60 - 115 mg/dL [facility] Calcium 9.5 8.4 - 10.2 mg/dL [facility] Bilirubin, Total 0.3 0.0 - 1.0 mg/dL [facility] Aspartate Amino Transferase 17 5 - 31 U/L [facility] Alanine Aminotransferase 23 0 - 31 U/L [facility] Total Protein 7.1 6.5 - 8.0 g/dL [facility] Albumin Level 4.1 3.5 - 5.0 g/dL [facility] Alkaline Phosphatase 104 39 - 117 U/L [facility] 10/23/2022 10:5 3 AM EST 10/23/2022 10:56 AM EST us [facility] External Provider LAB BLO OD ORDERABLES Final Result [facility] [address] [place] [phone] * (ABNORMAL) CBC auto differential (10/23/2022 10:53 AM EST) White Blood Count 9.5 4.8 - 10.8 X10*3/uL [facility] Red Blood Count 4.38 4.20 - 5.50 X10*6/uL [facility] Hemoglobin 10.5(L) 12.0 - 16.0 g/dl [facility] Hematocrit 34.5(L) 37.0 - 47.0 % [facility] Mean Corpuscular Volume 78.8(L) 80.0 - 98.0 fL [facility] Mean Corpuscular Hemoglobin 24.0(L) 27.0 - 33.0 pg [facility] Mean Corpuscular HGB Conc 30.4(L) 31.0 - 35.0 g/dl [facility] Red Cell Distribution Width 17.2(H) 11.0 - 16.0 % [facility] Platelet Count 319 160 - 400 X10*3/uL [facility] Mean Platelet Volume 10.6 9.4 - 12.3 fL [facility] Neutrophils Percent Auto 49.3 45 - 73 % [facility] Imm Gran Pct Auto 0.3 0.0 - 0.4 % [facility] Lymphocytes Percent Auto 38.4 20 - 40 % [facility] Monocytes Percent Auto 7.9 2 - 11 % [facility] Eosinophils Percent Auto 3.4 0 - 4 % [facility] Basophils Percent Auto 0.7 0 - 2 % [facility] NRBC Pct Auto 0.0 0.0 - 0.2 /100WBC [facility] Neutrophils Absolute Auto 4.7 2.0 - 8.3 x10*3/uL [facility] Imm Gran Abs Auto 0.03 0.00 - 0.03 X10*3/uL [facility] Lymphocytes Absolute Auto 3.6 1.2 - 4.9 X10*3/uL [facility] Monocytes Absolute Auto 0.8 0.1 - 1.2 X10*3/uL [facility] Eosinophils Absolute Auto 0.3 0.0 - 0.4 X10*3/uL [facility] Basophils Absolute Auto 0.1 0.0 - 0.2 X10*3/uL [facility] NRBC Abs Auto 0.000 0.0 - 0.012 X10*3/uL [facility] 10/23/2022 10:5 3 AM EST 10/23/2022 10:56 AM EST [facility] External Provider LAB BLO OD ORDERABLES Final Result Performing Organization Address City/[facility]/ZIP Co de Phone Number [facility] [address] [place] [phone] * SARS-CoV-2 RNA, Influenza A/B, and RSV RNA, Ql NAAT (10/11/2022 11:39 AM EST) Influenza A PCR NEGATIVE Negative [facility] Influenza B PCR NEGATIVE Negative [facility] Resp Syncy Virus RNA Qual PCR NEGATIVE Negative [facility] SARS COV2 PCR NEGATIVE Negative [facility] SARS/Flu/RSV Note See Note [facility] Comment:All test results mus t [...] use by authorized laboratories.Testing performed on the [employer] GeneXpert utilizingreal-time RT-PCR.All SARS CoV2 and positive influenza A/B results arereported to [facility]. 10/11/2022 11:3 9 AM EST 10/11/2022 11:44 AM EST [facility] Exter nal Provider LAB MICROBIOLOGY - GENERAL ORDERABLES Final Result Performing Organization Address [facility]/ZIP Co de Phone Number [facility] [address] [place] [phone] * Lactic Acid (10/11/2022 11:39 AM EST) Pathologist [facility] Lactic Acid 1.0 0.5 - 2.0 mmol/L [facility] 10/11/2022 11:3 9 AM EST 10/11/2022 11:44 AM EST [facility] External Provider LAB BLO OD ORDERABLES Final Result Performing Organization Address [facility] Co de Phone Number [facility] [address] [place] [phone] * Magnesium (10/11/2022 11:38 AM EST) Pathologist [facility] Magnesium 1.8 1.6 - 2.6 mg/dL [facility] 10/11/2022 11:3 8 AM EST 10/11/2022 11:44 AM EST [facility] External Provider LAB BLO OD ORDERABLES Final Result Performing Organization Address [facility] de Phone Number [facility] [address] [place] [phone] * Comprehensive Metabolic Panel (10/11/2022 11:38 AM EST) Pathologist [facility] Sodium 140 135 - 145 mmol/L [facility] Potassium 3.9 3.3 - 5.1 mmol/L [facility] Chloride 108 96 - 108 mmol/L [facility] Carbon Dioxide 22 22 - 29 mmol/L [facility] Anion Gap 14 12 - 20 [facility] Urea Nitrogen (BUN) 16 9 - 16 mg/dL [facility] Creatinine, Serum 0.70 0.5 - 1.4 mg/dL [facility] Creatinine Clr Calc Pharmacy 83.4 [facility] Comment:Provided height and weight: 162.56 cm,72.575 kg.eGFR (calculated from the MDRD study equation) and eCrCl(calculated from the Cockcroft-Gault equation) are based ondifferent parameters and may not yield comparable results.If eCrCl result is absurd, please check patient'sheight/weight. Estimated Glomerular Filt Rate >60 [facility] Comment:NOTE: For -Am erican individuals, multiply the result by 1.210.Chronic Kidney Disease: Estimated GFR < 60 mL/min/1.41x5Obqrvw Kidney Disease: Estimated GFR < 15 mL/min/1.73m2 Glucose 86 60 - 115 mg/dL [facility] Calcium 9.5 8.4 - 10.2 mg/dL [facility] Bilirubin, Total 0.3 0.0 - 1.0 mg/dL [facility] Aspartate Amino Transferase 20 5 - 31 U/L [facility] Alanine Aminotransferase 19 0 - 31 U/L [facility] Total Protein 7.3 6.5 - 8.0 g/dL [facility] Albumin Level 4.1 3.5 - 5.0 g/dL [facility] Alkaline Phosphatase 114 39 - 117 U/L [facility] 10/11/2022 11:3 8 AM EST 10/11/2022 11:44 AM EST [facility] External Provider LAB BLO OD ORDERABLES Final Result Performing Organization Address City/State/[facility] Co de Phone Number [facility] [address] [place] [phone] * Prothrombin Time-INR (10/11/2022 11:38 AM EST) Prothrombin Time 11.5 10.0 - 13.1 SEC [facility] INTERNATIONAL NORM RATIO 1.0 0.9 - 1.1 [facility] Comment:INTERNATIONAL NORMAL IZED RATIO (INR) [...] AM EST 10/11/2022 11:44 AM EST us [facility] External Provider LAB BLO OD ORDERABLES Final Result [facility] [address] [place], [place] [phone] * (ABNORMAL) CBC auto differential (10/11/2022 11:38 AM EST) White Blood Count 12.0(H) 4.8 - 10.8 X10*3/uL [facility] Red Blood Count 4.60 4.20 - 5.50 X10*6/uL [facility] Hemoglobin 11.0(L) 12.0 - 16.0 g/dl [facility] Hematocrit 36.0(L) 37.0 - 47.0 % [facility] Mean Corpuscular Volume 78.3(L) 80.0 - 98.0 fL [facility] Mean Corpuscular Hemoglobin 23.9(L) 27.0 - 33.0 pg [facility] Mean Corpuscular HGB Conc 30.6(L) 31.0 - 35.0 g/dl [facility] Red Cell Distribution Width 16.9(H) 11.0 - 16.0 % [facility] Platelet Count 246 160 - 400 X10*3/uL [facility] Mean Platelet Volume 10.3 9.4 - 12.3 fL [facility] Neutrophils Percent Auto 69.8 45 - 73 % [facility] Imm Gran Pct Auto 0.3 0.0 - 0.4 % [facility] Lymphocytes Percent Auto 21.8 20 - 40 % [facility] Monocytes Percent Auto 5.8 2 - 11 % [facility] Eosinophils Percent Auto 2.0 0 - 4 % [facility] Basophils Percent Auto 0.3 0 - 2 % [facility] NRBC Pct Auto 0.0 0.0 - 0.2 /100WBC [facility] Neutrophils Absolute Auto 8.4(H) 2.0 - 8.3 x10*3/uL [facility] Imm Gran Abs Auto 0.04(H) 0.00 - 0.03 X10*3/uL [facility] Lymphocytes Absolute Auto 2.6 1.2 - 4.9 X10*3/uL [facility] Monocytes Absolute Auto 0.7 0.1 - 1.2 X10*3/uL [facility] Eosinophils Absolute Auto 0.2 0.0 - 0.4 X10*3/uL [facility] Basophils Absolute Auto 0.0 0.0 - 0.2 X10*3/uL [facility] NRBC Abs Auto 0.000 0.0 - 0.012 X10*3/uL [facility] 10/11/2022 11:3 8 AM EST 10/11/2022 11:44 AM EST us [facility] External Provider LAB BLO OD ORDERABLES Final Result [facility] [address] [place] [phone] [phone] documented in this encounter Visit Diagnoses Not on filedocumented in this encounter Care Teams Senior Cost Analyst Relationship Specialty Start Date End Date Lilly Cowart MD [address] [place] [address] PCP - General Family Medicine 11/16/21 documented as of this encounter
--- OUTSIDE RECORDS SUMMARY | 2024-10-30 15:37 | XMS_ITS | Encounter Summary ---
Author Organization [employer] Address [address] [facility] [address] [place] [address] Care Team Providers Care Ornamenter Name Role Phone Lilly Cowart MD Primary Care Provider [phone] Reason for Visit * Reason Onset Date Comments Durable Medical Equipment 01/11/2024 Encounter Details Date Type Department Care Team ([facility] st Contact Info) Description 01/11/2024 Telephone [facility] MEDICINE [address] [place] [address] Lilly Cowart MD [address] [place] [address] Durable Medical Equipment Social History Tobacco Use [...] documented in this encounter Plan of Treatment Upcoming Encounters Date Type Department Care Team (Late st Contact Info) Description 11/14/2024 3:30 PM EST Office Visit [facility] MEDICINE [address] [place] [address] Lilly Cowart MD [address] [place] [address] 11/24/2024 3:15 PM EDT Office Visit [facility] OPTOMETRY [address] [place], [place] [phone] Vandana Avila, OD [address] [place] [address] documented as of this encounter Visit Diagnoses Not on filedocumented in this encounter Additional Health Concerns Assessment Noted Time PHQ-9 Depression Total Score: 8 12/27/19 24 3:25 PM EDT documented as of this encounter Care Teams Ornamenter Relationship Specialty Start Date End Date Lilly Cowart MD [address] [place] [address] PCP - General Family Medicine 11/16/21 documented as of this encounter
--- OUTSIDE RECORDS SUMMARY | 2024-10-30 15:37 | XMS_ITS | Encounter Summary ---
Author Organization [employer] Address [address] [facility] [address] [place] [address] Care Team Providers Care Bankruptcy Attorney Name Role Phone Lilly Cowart MD Primary Care Provider [phone] Reason for Visit * Reason Comments Med Refill Encounter Details Date Type Department Care Team ([facility] st Contact Info) Description 08/27/2024 Refill [facility] MEDICINE [address] [place], [place] [phone] Lilly Cowart MD [address] [place], [place] [phone] Social History Tobacco Use Types Packs/Day Years [...] Description 11/14/2024 3:30 PM EST Office Visit [facility] MEDICINE [address] [place] [address] Lilly Cowart MD [address] [place] [address] 11/24/2024 3:15 PM EDT Office Visit [facility] OPTOMETRY [address] [place] [address] Tarka, Vandana, OD [address] [place] [address] documented as of this encounter Visit Diagnoses Not on filedocumented in this encounter Additional Health Concerns Assessment Noted Time PHQ-9 Depression Total Score: 8 12/27/19 24 3:25 PM EDT documented as of this encounter Care Teams Bankruptcy Attorney Relationship Specialty Start Date End Date Lilly Cowart MD [address] [place] [phone] PCP - General Family Medicine 11/16/21 documented as of this encounter
--- OUTSIDE RECORDS SUMMARY | 2024-10-30 15:37 | XMS_ITS | Encounter Summary ---
Author Organization [employer] Address [address] [facility] 7t [place] [address] Care Team Providers Care Wool Handler Name Role Phone Lilly Cowart MD Primary Care Provider [phone] Encounter Details Date Type Department Care Team (Late st Contact Info) Description 01/23/2024 Orders Only [facility] [address] [place], [place] [phone] Lilly Cowart MD [address] [place], [place] [phone] Social History Tobacco Use Types Packs/Day Years [...] Description 11/14/2024 3:30 PM EST Office Visit [facility] [address] [place] [address] Lilly Cowart MD [address] [place] [address] 11/24/2024 3:15 PM EDT Office Visit [facility] [address] [place] [address] Vandana Avila, OD [address] [place] [address] documented as of this encounter Procedures Procedure Name Priority Date/Time Associated Diagnosis Comments FL GUIDANCE IN TREATMENT ROOM Routine 01/31/2024 2:45 PM EDT documented in this encounter Results * FL Guidance in Treatment Room (01/31/2024 2:45 PM EDT) Anatomical Region Laterality Modality X-Ray Angiograph y 01/31/2024 2:45 PM EDT Narrative 04/05/2024 6:59 AM EDT ? [facility] ?[address] ?[place] [address] ? Fluoroscopy Report ? Signed ? Patient: Jesus,Nadege ?MR#: [id number] ? : 1960 ?Acct:[id number] ? Age/Sex: 63 / F ?ADM Date: 05/16/24 ? Loc: CF ? Attending Dr: Yvon Rodriguez MD ? Ordering Physician: Rut Heaton APRN, LOCAL TELEPHONE OPERATOR ?? Date of Service: 01/31/24 ?? Procedure(s): FL guidance in treatment room ?? Accession Number(s): [id number] ? cc: Rut Heaton APRN, LOCAL TELEPHONE OPERATOR; Lilly Cowart ? EXAMINATION: ?? XR FLUOROSCOPY [...] Silvio Aparicio MD in OV> ? 04/05/24 0655 ? DD/ 1445 ? TD/TT: ? Retouching Operator: SS ? Procedure Note Talisha Higgins - 04/05/[address] [address] Fluoroscopy Report Signed Patient: Taty Lee#: [id number] : 2Acct:[id number] Age/Sex: 63 / FADM Date: 01/31/24 Loc: CF Attending Dr: Yvon Rodriguez MD Ordering Physician: Rut Heaton APRN, LOCAL TELEPHONE OPERATOR Date of Service: 01/31/24 Procedure(s): FL guidance in treatment room Accession Number(s): [id number] cc: Rut Heaton APRN, LOCAL TELEPHONE OPERATOR; Lilly Cowart EXAMINATION: XR FLUOROSCOPY WITH IMAGES [...] in OV> 04/05/24 0655 DD/ 1445 TD/TT: Retouching Operator: SS [facility] External Provider IMG IR PROCEDURES Final Result documented in this encounter Visit Diagnoses Not on filedocumented in this encounter Additional Health Concerns Assessment Noted Time PHQ-9 Depression Total Score: 8 12/27/19 24 3:25 PM EDT documented as of this encounter Care Teams Wool Handler Relationship Specialty Start Date End Date Lilly Cowart MD [address] [place] [address] PCP - General Family Medicine 11/16/21 documented as of this encounter
--- OUTSIDE RECORDS SUMMARY | 2024-10-30 15:37 | XMS_ITS | Clinical Summary ---
Author Organization [facility] ity Address [address] [place] [address] Care Team Providers Care Fundraising Manager Name Role Phone Unavailable Primary Care Provider Unavailabl e Social History Tobacco Use Types Packs/Day Years Used Date Smoking Tobacco: Never Assessed Comments Unknown Sex and Gender Information Value Date Recorded Sex Assigned at Not on file Legal Sex Female 2:35 PM EST Gender Identity Not on file Sexual Orientation Not on file Plan of Treatment Health Maintenance Due Date Last Done Comments Breast Cancer Screening 1960 DTaP,Tdap,and Td Vaccines (1 - Tdap) 1981 Cervical Cancer Screening: P ap Smear 1983 Pneumococcal Vaccine: 50+ Ye ars (1 of 1 - PCV) 2012 Zoster Vaccines (1 of 2) 2012 Colorectal [...] patient's age to complete this topic Meningococcal B Vacine Aged Out No lo nger eligible based on patient's age to complete [...]
--- OUTSIDE RECORDS SUMMARY | 2024-10-30 15:37 | XMS_ITS | Encounter Summary ---
Author Organization [employer] Address [address] [facility] 7t [place] [address] Care Team Providers Care Automation Tester Name Role Phone Lilly Cowart MD Primary Care Provider [phone] Encounter Details Date Type Department Care Team (Late st Contact Info) Description 10/18/2024 Orders Only [facility] External Provider, [facility] Social History Tobacco Use Types Packs/Day Years [...] Description 11/14/2024 3:30 PM EST Office Visit [facility] [address] [place] [address] Lilly Cowart MD [address] [place] [address] 11/24/2024 3:15 PM EDT Office Visit [facility] [address] [place] [address] Vandana Avila, OD [address] [place] [address] documented as of this encounter Procedures Procedure Name Priority Date/Time Associated Diagnosis Comments CTA HEAD NECK W AND WO CONTRAST Routine 10/18/2024 5:55 PM EST documented in this encounter Results * CTA Head Neck w/ and w/o Contrast (10/18/2024 5:55 PM EST) Anatomical Region Laterality Modality Head, Neck Computed Tomogra phy 10/18/2024 5:55 PM EST Narrative 10/18/2024 5:57 PM EST ? [facility] ?[address] ?[place] [address] ? CT Scan Report ? Signed ? Patient: Jesus,Nadege ?MR#: [id number] ? : 1960 ?Acct:[id number] ? Age/Sex: 64 / F ?ADM Date: 02/01/25 ? Loc: HO.ED ? Attending Dr: ? Ordering Physician: Silvio Heard DO ?? Date of Service: 10/18/24 ?? Procedure(s): CT angio head neck ?? Accession Number(s): [id number] ? cc: Silvio Heard DO; [facility] ? Report Number: ?? [id number]: Total DLP = 2007.00 mGy-cm ? CLINICAL HISTORY: Persistent right-sided BENÍTEZ and neck pain x1 month ? CT Head with and without contrast. ?? CT angiography head and neck with contrast. 3D Postprocessing. ? Comparison: None ? Findings: ?? HEAD CT: ?? No intra-axial mass, midline shift, hydrocephalus, or acute hemorrhage. ?? Mild diffuse cerebral volume loss. Mild degree of patchy low-density ?? within the periventricular and subcortical white matter. No abnormal ?? intracranial enhancement. ? The visualized paranasal sinuses and mastoid air cells are normal. ?? The orbits are within normal limits. ?? No skull fracture. ? HEAD AND NECK CTA: ?? Aortic arch and cervical great vessels are patent. There is high-grade ?? narrowing of the bilateral vertebral artery origins. ?? Intracranial arteries are patent. No aneurysm, dissection, or occlusion. ?? No abnormal intracranial enhancement. ? The visualized thyroid gland is unremarkable. No cervical mass or fluid ?? collection. ?? Lung apices clear. ?? No acute fracture. ? IMPRESSION: ?? 1. No acute intracranial abnormality. ?? 2. High-grade bilateral vertebral artery origin stenoses. ?? 3. Otherwise negative CT angiography of the head and neck. ? This document has been electronically signed by: Essence Salazar MD on ?? 10/18/2024 17:55:56 ? Dictated By: ?Essence Salazar MD ? Signed By: ?<Electronically signed by Essence Salazar MD in OV> ? 10/18/24 1756 ? DD/ 1755 ? TD/TT: 10/18/24 1755 ? Printing Press Operator Apprentice: ? Procedure Note Talisha Higgins - 10/18/[address] [address] [address] Scan Report Signed Patient: Taty Lee#: [id number] : 2Acct:[id number] Age/Sex: 64 / FADM Date: 10/18/24 Loc: HO.ED Attending Dr: Ordering Physician: Silvio Heard DO Date of Service: 10/18/24 Procedure(s): CT angio head neck Accession Number(s): [id number] cc: Silvio Heard ; [facility] Report Number: [id number]: Total DLP = 2007.00 mGy-cm CLINICAL HISTORY: Persistent right-sided BENÍTEZ and neck pain x1 month CT Head with and without contrast. CT angiography head and neck with contrast. 3D Postprocessing. Comparison: None Findings: HEAD CT: No intra-axial mass, midline shift, hydrocephalus, or acute hemorrhage. Mild diffuse cerebral volume loss. Mild degree of patchy low-density within the periventricular and subcortical white matter. No abnormal intracranial enhancement. The visualized paranasal sinuses and mastoid air cells are normal. The orbits are within normal limits. No skull fracture. HEAD AND NECK CTA: Aortic arch and cervical great vessels are patent. There is high-grade narrowing of the bilateral vertebral artery origins. Intracranial arteries are patent. No aneurysm, dissection, or occlusion. No abnormal intracranial enhancement. The visualized thyroid gland is unremarkable. No cervical mass or fluid collection. Lung apices clear. No acute fracture. IMPRESSION: 1. No acute intracranial abnormality. 2. High-grade bilateral vertebral artery origin stenoses. 3. Otherwise negative CT angiography of the head and neck. This document has been electronically signed by: Essence Salazar MD on 10/18/2024 17:55:56 Dictated By: Essence Salazar MD Signed By: <Electronically signed by Essence Salazar MD in OV> 10/18/241755 DD/ 54 TD/TT: 10/18/241754 Printing Press Operator Apprentice: [facility] External Provider IMG CT PROCEDURES Edited Result - Final documented in this encounter Visit Diagnoses Not on filedocumented in this encounter Additional Health Concerns Assessment Noted Time PHQ-9 Depression Total Score: 8 12/27/19 24 3:25 PM EDT documented as of this encounter Care Teams Automation Tester Relationship Specialty Start Date End Date Lilly Cowart MD [address] [place] [address] PCP - General Family Medicine 11/16/21 documented as of this encounter
--- OUTSIDE RECORDS SUMMARY | 2024-10-30 15:37 | XMS_ITS | Encounter Summary ---
Author Organization [employer] Address [address] [facility] 7t [place] [address] Care Team Providers Care Product Merchandiser Name Role Phone Lilly Cowart MD Primary Care Provider [phone] Encounter Details Date Type Department Care Team (Late st Contact Info) Description 05/25/2023 Abstract [facility] [address] [place] [phone] Lilly Cowart MD [address] [place], [place] [phone] Social History Tobacco Use Types Packs/Day Years [...] Description 11/14/2024 3:30 PM EST Office Visit [facility] [address] [place], [place] [phone] Lilly Cowart MD [address] [place], [place] [phone] 11/24/2024 3:15 PM EDT Office Visit [facility] [address] [place] [phone] Vandana Avila OD [address] [place] [address] documented as of this encounter Visit Diagnoses Not on filedocumented in this encounter Care Teams Product Merchandiser Relationship Specialty Start Date End Date Lilly Cowart MD [address] [place] [address] PCP - General Family Medicine 11/16/21 documented as of this encounter
--- OUTSIDE RECORDS SUMMARY | 2024-10-30 15:37 | XMS_ITS | Clinical Summary ---
Author Organization [employer] Address [address] [place] [address] 7t [place] [address] Care Team Providers Care Cam Maker Name Role Phone Lilly Cowart MD Primary Care Provider [phone] Allergies Active Allergy Reactions Criticality Noted Date Comments Buspirone Other reaction(s): tongue tingles, unclear Butalbital 07/28/2013 Other reaction(s): dizziness & headache got worse Ibuprofen Swelling Other reaction(s): Zomig Paroxetine 05/05/2014 Other reaction(s): headache, tongue tingling Zolmitriptan 09/04/2022 Medications Heating Pads pads use for low back pain 022 Active Blood Pressure Monitoring (Omron 3 Series BP Monitor) device USE TO CHECK BLOOD PRESSURE DAILY DIRECTED 022 Active Senna-Time 8.6 MG tablet TAKE 1 TABLET BY MOUTH EVERY DAY AT BEDTIME NEEDED FOR CONSTIPATION 022 Active polyethylene glycol, PEG, 3350 (Glycolax) 17 GM/SCOOP powderIndicatio ns:Constipation , unspecified constipation type TAKE 17 GM MIXED IN 8 OUNCES OF WATER ONCE DAILY 510 g 3 023 Active nicotine (Nicoderm, Step 2) 14 MG/24HR patch APPLY 1 PATCH TOPICALLY TO THE SKIN DAILY IN THE MORNING *DO NOT SMOKE WHILE USING PATCH* 30 patch 1 023 Active Petrolatum 42 % ointment Apply topically if needed. 023 Active Metamucil Smooth Texture 58.6 % powder MIX AND DRINK 1.7 GM BY MOUTH DAILY 023 Active Multiple Vitamins-Minera ls (CertaVite/Anti oxidants) tabletIndicatio ns:Malignant neoplasm of endocervix (CMS/HCC) TAKE 1 TABLET BY MOUTH EVERY MORNING 90 tablet 3 024 Active DULoxetine (Cymbalta) [address] capsule Take 1 capsule (60 mg) by mouth in the morning. Do not crush or chew. 90 capsule 3 024 2024 Active albuterol (Ventolin HFA) 108 (90 Base) MCG/ACT inhalerIndicati ons:Moderate persistent asthma without complication INHALE 2 PUFFS BY MOUTH EVERY 4 TO 6 HOURS NEEDED FOR WHEEZING OR SHORTNESS OF BREATH 18 g 11 024 Active lisinopril 40 MG tablet TAKE 1 TABLET BY MOUTH ONCE DAILY 90 tablet 3 024 Active melatonin 10 MG tablet Take 1 tablet (10 mg) by mouth if needed at bedtime (insomnia). 90 tablet 3 024 Active celecoxib (CeleBREX) 50 MG capsule TAKE 1 CAPSULE BY MOUTH EVERY MORNING 90 capsule 1 024 Active Multiple Vitamins-Iron (Tab-A-Iraj/Iro n/Beta Carotene) tablet Take 1 tablet by mouth in the morning. 024 Active melatonin 5 MG tablet TAKE 2 TABLETS BY MOUTH EVERY DAY AT BEDTIME NEEDED FOR SLEEP Active metoprolol succinate XL (Toprol-XL) 25 MG 24 hr tablet TAKE 1 TABLET BY MOUTH EVERY DAY 90 tablet 4 024 Active mineral oil-hydrophil petrolat ointment Topical OintmentIndicat ions:Cellulitis of right lower limb Apply topically if needed (dry skin). 454 g 3 024 Active Neomycin-Polymy estella-HC 1 % solution Administer 3 drops into affected ear(s) 3 times daily. 10 mL 024 Active triamcinolone (Kenalog) 0.1 % cream Apply topically if needed in the morning and at bedtime (pain and swelling). 30 g 2 024 Active oxyCODONE (Roxicodone) 5 MG immediate release tabletIndicatio ns:Recurrent cellulitis of lower extremity,Pain and swelling of lower extremity, right Take 1-2 tablets (5-10 mg) by mouth at bedtime. 30 tablet 024 Active penicillin v potassium (Veetid) 500 MG tabletIndicatio ns:Recurrent cellulitis of lower extremity TAKE 1 TABLET BY MOUTH EVERY DAY FOR GBS PROPHYLAXIS 30 tablet 1 Active acetaminophen (Tylenol 8 Hour) 650 MG ER tabletIndicatio ns:Other chronic pain TAKE 2 TABLETS BY MOUTH EVERY 8 HOURS NEEDED FOR PAIN SWALLOW WHOLE WITH WATER DO NOT BREAK, CRUSH, DISSOLVE OR CHEW 100 tablet 3 Active SUMAtriptan (Imitrex) 25 MG tablet TAKE 1 TABLET BY MOUTH AT ONSET OF MIGRAINE. MAY REPEAT ONCE AFTER 2 HOURS IF NEEDED 18 tablet 7 025 Active Magnesium 400 MG capsuleIndicati ons:Migraine without aura, not refractory Take 1 capsule by mouth Once daily. 90 capsule 1 025 Active cyclobenzaprine (Flexeril) 5 MG tabletIndicatio ns:Tension headache Take 1-2 tabs as needed at bedtime for muscle tension, may take 1 tab AM and PM if needed for pain 30 tablet Active rosuvastatin (Crestor) 5 MG tabletIndicatio ns:Vertebral artery stenosis, bilateral Take 1 tablet (5 mg) by mouth at bedtime. 90 tablet 3 025 2025 Active aspirin (ASPIR) 81 MG EC tabletIndicatio ns:Vertebral artery stenosis, bilateral Take 1 tablet (81 mg) by mouth Once per day. 90 tablet 3 025 2025 Active SUMAtriptan (Imitrex) 25 MG tablet TAKE 1 TABLET BY MOUTH AT ONSET OF MIGRAINE. MAY REPEAT ONCE AFTER 2 HOURS IF NEEDED 18 tablet 7 024 2024 Discontinued(R eorder (will not trigger notification to Pharmacy)) Magnesium Citrate 200 MG tablet TAKE 1/2 TABLET BY MOUTH TWICE DAILY FOR PAIN 024 2024 Discontinued(M ed list cleanup (will not trigger notification to Pharmacy)) gabapentin (Neurontin) 300 MG capsule TAKE 1 CAPSULE BY MOUTH TWICE DAILY FOR PAIN 024 2024 Discontinued(M ed list cleanup (will not trigger notification to Pharmacy)) riboflavin (Vitamin B-2) 400 MG tablet TAKE 1 TABLET BY MOUTH EVERY DAY FOR PAIN 024 2024 Discontinued(T herapy completed) acetaminophen (Tylenol 8 Hour) 650 MG ER tabletIndicatio ns:Other chronic pain TAKE 2 TABLETS BY MOUTH EVERY 8 HOURS NEEDED FOR PAIN SWALLOW WHOLE WITH WATER, DO NOT BREAK, CRUSH, DISSOLVE OR CHEW 100 tablet 3 024 2024 Discontinued(R eorder (will not trigger notification to Pharmacy)) clindamycin (Cleocin) 300 MG capsule TAKE 1 CAPSULE BY MOUTH EVERY 6 HOURS 024 2024 Discontinued(M ed list cleanup (will not trigger notification to Pharmacy)) ferrous sulfate 324 (65 Fe) MG EC tablet Take 324 mg by mouth Once per day. 024 2024 Discontinued(S hafsa effects) Active Problems Problem Noted Date Diagnosed Date Vertebral artery stenosis, bilateral 10/20/2024 Overview (10/20/2024): on CTA at [facility] 10/18/24 Impaired mobility 01/17/2023 Assessment & Plan (01/17/2023 [...] Will also have patient see ortho at [facility] to discuss washout of R TKA arthrosis? Oxycodone 5mg for nighttime x 30 days, use sparingly Assessment & Plan (11/09/2022 11:47 AM EST): Pt admitted to [facility] recently as a result. Work up did [...] Plan (01/17/2023 8:46 AM EDT): Will call [facility] to obtain notes from recent visit Pt [...] & Plan (12/31/2023 9:04 AM EDT): CAMILA douglasn Atopic conjunctivitis 07/30/2015 Constipation 07/30/2015 Depression 07/30/2015 [...] Encounters Date Type Department Care Team Description 10/20/2024 3:00 PM EST Office Visit [facility] [address] [place] [address] Kae Garza ANP Migraine without aura, not refractory (Primary Dx); Primary hypertension; Tension headache; Vertebral artery stenosis, bilateral 10/20/2024 Refill [facility] [address] [place], [place] [phone] Lilly Cowart MD Other chronic pain 10/18/2024 Orders Only [facility] External Provider, [facility] 09/11/2024 Refill [facility] [address] [place] [address] Lilly Cowart MD Recurrent cellulitis of lower extremity 08/27/2024 Refill [facility] [address] [place] [address] Lilly Cowart MD 08/11/2024 Orders Only [facility] External Provider, [facility] 08/01/2024 Telephone [facility] [address] [place] [address] Lilly Cowart MD Referral from Last 3 Months Immunizations Name Administration [...] Sign Reading Time Taken Comments Blood Pressure 144/88 10/20/2024 2:39 PM EST Pulse 77 10/20/2024 2:39 PM EST Temperature 36.2 ??C (97.1 ??F) 10/20/2024 2:39 PM ES T Respiratory Rate 18 10/20/2024 2:39 PM EST Oxygen Saturation 99% 10/20/2024 2:39 PM EST Inhaled Oxygen Concentration - - Weight 80.6 kg (177 lb 12.8 oz) 10/20/2024 2:39 PM EST Height 162.6 cm (5' 4 ) 07/01/2024 4:16 PM EDT Body Mass Index 30.52 07/01/2024 4:16 PM EDT Plan of Treatment Upcoming Encounters Date Type Department Care Team (Late st Contact Info) Description 11/14/2024 3:30 PM EST Office Visit [facility] [address] [place] [address] Lilly Cowart MD [address] [place] [address] 11/24/2024 3:15 PM EDT Office Visit [facility] [address] [place] [address] Vandana Avila, OD [address] [place] [address] Health Maintenance Due Date Last Done Comments [...] 12/26/2024 12/27/2023 Mammogram 01/21/2025 01/22/2024 Tobacco Screening 10/20/2025 10/20/2024 DTaP/Tdap/Td Vaccines (5 - Td or Tdap) [...] WO CONTRAST Routine 10/18/2024 5:55 PM EST XR KNEE 1-2 VIEWS RIGHT Routine 08/11/2024 3:11 PM EST BI MAMMOGRAM SCREENING TOMOSYNTHESIS BILATERAL Routine 01/22/2024 2:21 PM EDT Encounter for screening mammogram for malignant neoplasm of breast from Last 3 Months or Most Recently Relevant to Health Maintenance Results * CTA Head Neck w/ and w/o Contrast (10/18/2024 5:55 PM EST) Anatomical Region Laterality Modality Head, Neck Computed Tomogra phy 10/18/2024 5:55 PM EST Narrative 10/18/2024 5:57 PM EST ? [facility] ?[address] ?[place], [place] [address] ? CT Scan Report ? Signed ? Patient: Jesus,Nadege ?MR#: [id number] ? : 1960 ?Acct:[id number] ? Age/Sex: 64 / F ?ADM Date: 10/18/24 ? Loc: HO.ED ? Attending Dr: ? Ordering Physician: Silvio Heard DO ?? Date of Service: 10/18/24 ?? Procedure(s): CT angio head neck ?? Accession Number(s): [id number] ? cc: Silvio Heard DO; [facility] ? Report Number: ?? [id number]: Total DLP = 2007.00 mGy-cm ? CLINICAL [...] by Essence Salazar MD in OV> ? 10/18/241755 ? DD/ 54 ? TD/TT: 10/18/241754 ? Dividend Deposit Entry Clerk: ? Procedure Note Donotuseinterpreter, Image - 10/18/[address] [place] [address] [address] Scan Report Signed Patient: Nadege LeeMR#: [id number] : 1960cct:[id number] Age/Sex: 64 / FADM Date: 10/18/24 Loc: HO.ED Attending Dr: Ordering Physician: Silvio Heard DO Date of Service: 10/18/24 Procedure(s): CT angio head neck Accession Number(s): [id number] cc: Silvio Heard DO; [facility] Report Number: [id number]: Total DLP = 2007.00 mGy-cm CLINICAL HISTORY: [...] in OV> 10/18/241755 DD/ 54 TD/TT: 10/18/241754 Dividend Deposit Entry Clerk: us [facility] External Provider IMG CT PROCEDURES Edited Result - Final * XR Knee 1-2 Views Right (08/11/2024 3:11 PM EST) Anatomical Region Laterality Modality Lower Extremities, Knee Right Radiogra phic Imaging 08/11/2024 3:11 PM EST Narrative 08/16/2024 10:26 PM EST ? [facility] ?[address] ?[place], [place] [address] ?XRay Report ? Signed ? Patient: Jesus,Nadege ?MR#: [id number] ? : 1960 ?Acct:[id number] ? Age/Sex: 64 / F ?ADM Date: 08/11/24 ? Loc: HO.XRAY ? Attending Dr: Amy Rodriguez MD ? Ordering Physician: Amy Rodriguez MD ?? Date of Service: 08/11/24 ?? Procedure(s): XR knee RT 2V ?? Accession Number(s): [id number] ? cc: Lilly Cowart; Amy Rodriguez MD [...] signed by Jesus Barrios MD in OV> ?08/16/ 2224 ? DD/ 1511 ? TD/TT: 08/11/24 1532 ? Dividend Deposit Entry Clerk: WG ? Procedure Note Donotuseinterpreter, Image - 08/16/[address] [address] XRay Report Signed Patient: Nadege LeeMR#: [id number] : 1960cct:[id number] Age/Sex: 64 / FADM Date: 08/11/24 Loc: HO.XRAY Attending Dr: Amy Rodriguez MD Ordering Physician: Amy Rodriguez MD Date of Service: 08/11/24 Procedure(s): XR knee RT 2V Accession Number(s): [id number] cc: Lilly Cowart; Amy Rodriguez MD EXAMINATION: [...] by: Jesus Barrios MD 08/16/2024 10:24 PM [facility] Dictated By: Jesus Barrios MD Signed By: <Electronically signed by Jesus Barrios MD inOV> 08/16/24 2224 DD/ 1511 TD/TT: 08/11/24 1532 Dividend Deposit Entry Clerk: JONI [facility] External Provider IMG XR PROCEDURES Edited Result - Final * BI Mammogram Screening Tomosynthesis Bilateral (01/22/2024 2:21 PM EDT) Anatomical Region Laterality Modality Breast Bilateral Mammography 01/22/2024 2:21 PM EDT Narrative 02/21/2024 1:33 PM EDT ? [facility] ? [address] ?[place] [address] ? Mammography Report ? Signed ? Patient: Jesus,Andege ?MR#: [id number] ? : 1960 ?Acct:[id number] ? Age/Sex: 63 / F ?ADM Date: 01/22/24 ? Loc: HO.MAMMO ? Attending Dr: Lilly Cowart MD ? Ordering Physician: Lilly Cowart ?Results: 1Negative ? Date of Service: 01/22/24 ?Follow Up: 1 Year From Orig ?? inal Mammogram ? Procedure(s): MM tomosynthesis screening BI ?? Accession Number(s): [id number] ? cc: Lilly Cowart ? EXAMINATION: ?? [...] 1329 ? DD/ 1421 ? TD/TT: ? Dividend Deposit Entry Clerk: ? Procedure Note Donjasmin, Image - 02/21/2024 [place] [facility] [address] [place] [address] Mammography Report Signed Patient: Nadege LeeMR#: [id number] : 2Acct:[id number] Age/Sex: 63 / FADM Date: 01/22/24 Loc: HO.MAMMO Attending Dr: Lilly Cowart MD Ordering Physician: Devon Cowartults: 1Negative Date of Service: 01/22/24Follow Up: 1 Year From Orig inal Mammogram Procedure(s): MM tomosynthesis screening BI Accession Number(s): [id number] cc: Lilly Cowart EXAMINATION: MM SCREENING DIGITAL [...] in OV> 02/21/24 1329 DD/ 1421 TD/TT: Dividend Deposit Entry Clerk: Lilly Cowart MD IMG BI PROCEDURES Final Result from Last 3 Months or Most Recently Relevant to Health Maintenance Insurance [employer] Care Teams Cam Maker Relationship Specialty Start Date End Date Lilly Cowart MD [address] [place] [address] PCP - General Family Medicine 11/16/21
--- OUTSIDE RECORDS SUMMARY | 2024-10-30 15:38 | XMS_ITS | Encounter Summary ---
Author Organization [employer] Address [address] [facility] [address] [place] [address] Care Team Providers Care Loss Prevention Research Engineer Name Role Phone Lilly Cowart MD Primary Care Provider [phone] Reason for Visit * Reason Comments Med Refill Encounter Details Date Type Department Care Team (Late st Contact Info) Description 11/01/2022 Refill [facility] [address] [place] [address] Bouchra Pacheco MD [address] [place] [address] Cellulitis of right lower limb Social History [...] Description 11/14/2024 3:30 PM EST Office Visit [facility] [address] [place] [address] Lilly Cowart MD [address] [place] [address] 11/24/2024 3:15 PM EDT Office Visit [facility] [address] [place] [address] Vandana Avila, OD [address] [place] [address] documented as of this encounter Visit Diagnoses Diagnosis Cellulitis of right lower limb documented in this encounter Care Teams Loss Prevention Research Engineer Relationship Specialty Start Date End Date Lilly Cowart MD [address] [place] [address] PCP - General Family Medicine 11/16/21 documented as of this encounter
--- OUTSIDE RECORDS SUMMARY | 2024-10-30 15:38 | XMS_ITS | Encounter Summary ---
Author Organization [employer] Address [address] [facility] 7t [place] [address] Care Team Providers Care Recruiting Operations Consultant Name Role Phone Lilly Cowart MD Primary Care Provider [phone] Reason for Visit * Reason Onset Date Comments Hospital Follow-up 05/17/2023 Encounter Details Date Type Department Care Team ([facility] st Contact Info) Description 05/17/2023 Telephone [facility] [address] [place] [address] Lilly Cowart MD [address] [place] [address] Hospital Follow-up Social History Tobacco Use Types [...] of a HDF. Pt was admitted at [facility] on 05/07 and discharged on 05/10 for leg infection, fever, and low blood pressure. Was advised will forward to team nurses for f/u. Please contact pt at [phone] documented in this encounter Plan of Treatment Upcoming Encounters Date Type Department Care Team (Late st Contact Info) Description 11/14/2024 3:30 PM EST Office Visit [facility] [address] [place] [address] Lilly Cowart MD [address] [place] [address] 11/24/2024 3:15 PM EDT Office Visit [facility] [address] [place] [address] Vandana Avila, OD [address] [place] [address] documented as of this encounter Visit Diagnoses Not on filedocumented in this encounter Care Teams Recruiting Operations Consultant Relationship Specialty Start Date End Date Lilly Cowart MD [address] [place] [id number] PCP - General Family Medicine 11/16/21 documented as of this encounter
--- OUTSIDE RECORDS SUMMARY | 2024-10-30 15:38 | XMS_ITS | Encounter Summary ---
Author Organization [employer] Address [address] [facility] [address] [place] [address] Care Team Providers Care Adhesive Bonding Machine Operator Name Role Phone Lilly Cowart MD Primary Care Provider [phone] Reason for Referral * Consultation (Urgent) - Authorized Specialty Diagnoses / Procedures Referred By Efrain verduzco Referred To Contact Vascular Neurology Diagnoses Vertebral artery stenosis, bilateral Carlos Rothman ANP [address] [place], [place] Phone: tel: fax: [facility] Referral ID Status Reason Start Date Expiration Date Visits Requested Visits Authorized [id number] Authorized Specialty Services Required 10/20/2024 10/20/2025 6 6 * Consultation (Routine) - Authorized Specialty Diagnoses / Procedures Referred By Efrain verduzco Referred To Contact Pharmacy Diagnoses Primary hypertension Carlos Rothman ANP [address] [place], [place] Phone: tel: fax: Referral ID Status Reason Start Date Expiration Date Visits Requested Visits Authorized [id number] Authorized Continuity of Care 10/20/2024 10/20/2025 6 6 Reason for Visit * Reason Comments Headache body pain Numbness Encounter Details Date Type Department Care Team (Late st Contact Info) Description 10/20/2024 3:00 PM EST Office Visit [facility] [address] [place] [address] Carlos Rothman ANP [address] [place], [place] Migraine without aura, not refractory (Primary Dx); Primary hypertension; Tension headache; Vertebral artery stenosis, bilateral Social History Tobacco Use Types Packs/Day Years [...] AM EDT documented as of this encounter Last Filed Vital Signs Vital Sign Reading [...] 12.8 oz) 10/20/2024 2:39 PM EST Height - - Body Mass Index 30.52 07/01/2024 4:16 PM EDT documented in this encounter Progress Notes * NUBIA Haskins - 10/20/2024 3:00 PM EST Nadege Lee is 64 y.o. patient here today for sick visit. HPI PMH hypertension, asthma, depression, fibromyalgia, chronic pain syndrome, chronic kidney disease, anemia and migraines, former smoker Patient was seen at [facility] ED for same symptoms 2 days ago, and also 10/12/2024 for same. Got CTA head/neck 10/18/24 with findings as below: CT imaging shows no acute abnormalities. There are chronic findings which include: High-grade bilateral vertebral artery origin stenoses. Per ED note felt better after migraine cocktail. Was also advised to follow-up for neurology referral. She did get referral and has appt scheduled w/ neuro in February she tells me. She reports today she is getting dizziness, constant BENÍTEZ, sometimes pain takes the side of her head on R side. Her right leg is also starting to act up and be in pain, she also has pain in low back, acute on chronic. Pain in head originates at base of neck, radiates to R shoulder, R arm and R side of head. Tylenol helps a little but pain returns. Does not have celecoxib. Not sure if she is taking her duloxetine. Requests renewal of oxycodone or tramadol. I declined to fill these today. Former smoker Review of Systems Constitutional: Negative for chills and fever. HENT: Negative for sore throat. Respiratory: Negative for cough and shortness of breath. Cardiovascular: Negative for chest pain. Gastrointestinal: Negative for constipation and diarrhea. Endocrine: Negative for polydipsia, polyphagia and polyuria. Genitourinary: Negative for dysuria. Patient Active Problem List Diagnosis Anemia Asthma Atopic conjunctivitis Back pain Breast pain Class 1 obesity Constipation Depression Dyspnea on exertion Fever Fibromyositis History of total knee arthroplasty Hypertension Malignant neoplasm of cervix (CMS/HCC) Migraine without aura, not refractory Neurogenic bladder Overweight Primary osteoarthritis of left knee Smoker Cellulitis of right lower extremity Pain and swelling of lower extremity, right Chronic pain of right knee Right lower quadrant abdominal pain Pelvic pain in female Impaired mobility Objective BP (!) 144/88 (BP Location: Right arm, Patient Position: Sitting, BP Cuff Size: Adult) Pulse 77 Temp 97.1 ??F (36.2 ??C) (Temporal) Resp 18 Wt 177 lb 12.8 oz (80.6 kg) SpO2 99% BMI 30.52 kg/m?? Physical Exam Vitals reviewed. Constitutional: General: She is not in acute distress. Appearance: Normal appearance. She is not toxic-appearing. HENT: Head: Normocephalic and atraumatic. Eyes: General: No scleral icterus. Extraocular Movements: Extraocular movements intact. Pupils: Pupils are equal, round, and reactive to light. Cardiovascular: Rate and Rhythm: Normal rate and regular rhythm. Pulmonary: Effort: Pulmonary effort is normal. Musculoskeletal: Comments: Tenderness R trapezius Skin: General: Skin is warm and dry. Neurological: Mental Status: She is alert. Cranial Nerves: No cranial nerve deficit. Psychiatric: Mood and Affect: Mood normal. Behavior: Behavior normal. Diagnoses and all orders for this visit: Vertebral artery stenoses bilateral, high grade Recommend statin and ASA 81mg start, will run plan by PCP and schedule follow-up w/ her in 2-4 weeks for re-eval. Asked pt to please get labs PCP previously ordered (which incl lipids). Will also place referral to neurovascular. UPDATE: spoke w/ PCP who agreed w/ plan above. START: Rosuvastatin 5mg at bedtime and ASA 81mg oncedaily. Updated pt via phone. Reinforced ED precautions for worsening BENÍTEZ, new neuro sx. Migraine without aura, not refractory Here today for eval of R sided BENÍTEZ and R shoulder pain, radiating to R arm. +photophobia. Suspect tension plus atypica migraine. Seen at ED 2d ago w/ reassuring imaging against acute cause. Take sumatriptan as rx'd by PCP. Hydrate well. Recommend to trial for prophylaxis: - Magnesium 400 MG capsule; Take 1 capsule by mouth Once daily. Primary hypertension BP above goal < 140/80. She is not 100% sure took meds today but thinks so. Will monitor and fu w/ PCP. Would like [facility]. Have referred. - Referral to Pharmacy MTM Tension headache Recommend heat, stretching, trial cyclobenzaprine short term as needed. I declined to refill oxycodone or tramadol. - cyclobenzaprine (Flexeril) 5 MG tablet; Take 1-2 tabs as needed at bedtime for muscle tension, may take 1 tab AM and PM if needed for pain documented in this encounter Miscellaneous Notes * Addendum Note - NUBIA Haskins - 10/20/2024 3:00 PM ESTAddended by: CARLOS ROTHMAN on: 10/20/2024 05:08 PM Modules accepted: Orders documented in this encounter Plan of Treatment Upcoming Encounters Date Type Department Care Team (Late st Contact Info) Description 11/14/2024 3:30 PM EST Office Visit [facility] [address] [place] [address] Lilly Cowart MD [address] [place] [address] 11/24/2024 3:15 PM EDT Office Visit [facility] [address] [place] [address] Vandana Avila, OD [address] [place] [address] Scheduled Referrals Name Type Priority Associated Diagnoses Orde r Schedule Referral to Pharmacy MT Outpatient Referral Routine Primary hypertension Ordered: 10/20/2024 Referral to Vascular Surgery Outpatient Referral Urgent Vertebral artery stenosis, bilateral Expected: 10/20/2024 (Approximate), Expires: 10/20/2025 documented as of this encounter Visit Diagnoses Diagnosis Migraine without aura, not refractory- Primary Primary hypertension Unspecified essential hypertension Tension headache Vertebral artery stenosis, bilateral documented in this encounter Additional Health Concerns Assessment Noted Time PHQ-9 Depression Total Score: 8 12/27/19 24 3:25 PM EDT documented as of this encounter Care Teams Adhesive Bonding Machine Operator Relationship Specialty Start Date End Date Lilly Cowart MD [address] [place] [id number] PCP - General Family Medicine 11/16/21 documented as of this encounter
--- OUTSIDE RECORDS SUMMARY | 2024-10-30 15:38 | XMS_ITS | Encounter Summary ---
Author Organization [employer] Address [address] [facility] [address] [place] [address] Care Team Providers Care Flight Steward Name Role Phone Lilly Cowart MD Primary Care Provider [phone] Reason for Visit * Reason Onset Date Comments Med Refill 10/20/2024 Encounter Details Date Type Department Care Team (Late st Contact Info) Description 10/20/2024 Refill [facility] [address] [place] [address] Lilly Cowart MD [address] [place] [address] Other chronic pain Social History Tobacco Use Types Packs/Day Years [...] encounter Miscellaneous Notes * Telephone Encounter - Lindsey Salcedo LPN - 10/20/2024 1:09 PM EST Last seen 07/01/24. documented in this encounter Plan of Treatment Upcoming Encounters Date Type Department Care Team (Late st Contact Info) Description 11/14/2024 3:30 PM EST Office Visit [facility] [address] [place] [address] Lilly Cowart MD [address] [place] [address] 11/24/2024 3:15 PM EDT Office Visit [facility] [address] [place], [place] [id number] TarkaVandana, OD [address] [place] [address] documented as of this encounter Visit Diagnoses Diagnosis Other chronic pain documented in this encounter Additional Health Concerns Assessment Noted Time PHQ-9 Depression Total Score: 8 12/27/19 24 3:25 PM EDT documented as of this encounter Care Teams Flight Steward Relationship Specialty Start Date End Date Lilly Cowart MD [address] [place] [address] PCP - General Family Medicine 11/16/21 documented as of this encounter
--- OUTSIDE RECORDS SUMMARY | 2024-10-30 15:38 | XMS_ITS | Encounter Summary ---
Author Organization [employer] Address [address] [facility] [address] [place] [address] Care Team Providers Care End Polisher Name Role Phone Lilly Cowart MD Primary Care Provider [phone] Reason for Visit * Reason Comments Med Refill Encounter Details Date Type Department Care Team (Late st Contact Info) Description 10/29/2022 Refill [facility] [address] [place] [address] Bouchra Pacheco MD [address] [place] [address] Cellulitis of right lower limb Social History [...] Description 11/14/2024 3:30 PM EST Office Visit [facility] [address] [place] [address] Lilly Cowart MD [address] [place] [address] 11/24/2024 3:15 PM EDT Office Visit [facility] [address] [place] [address] Vandana Avila, OD [address] [place] [address] documented as of this encounter Visit Diagnoses Diagnosis Cellulitis of right lower limb documented in this encounter Care Teams End Polisher Relationship Specialty Start Date End Date Lilly Cowart MD [address] [place] [address] PCP - General Family Medicine 11/16/21 documented as of this encounter
[2024-10-30] MEDS: Metoclopramide HCl 10 MG/2 ML VIAL IVPUSH (15:59)
[2024-10-30] MEDS: Morphine Sulfate 4 MG/ML CARTRIDGE IVPUSH (15:59)
[2024-10-30] MEDS: diphenhydrAMINE HCL 50 MG/ML VIAL IVPUSH (15:59)
[2024-10-30 17:26] VITALS: BP 133/80; PULSE 79; RESP 18; TEMP 36.8; O2SAT 99
== END 2024-10-30 17:27 | disposition home or self-care (01) ==
PROVIDERS: Emergency Provider Emergency Medicine Emergency Medical Services
DX: G43.909 Migraine, unspecified, not intractable, without status migrainosus (principal); M54.2 Cervicalgia; Z79.899 Other long term (current) drug therapy
CPT/HCPCS: 96374; 96375; 99284; J1200; J2270; J2765

== ENCOUNTER 2024-11-08 11:34 | Emergency (ER) | payer MEDICAID, SELFPAY ==
--- NOTE | ~2024-11-08 | XR_ITS ---
CLINICAL HISTORY: mid back pain spasm, atraumatic 3 views thoracic spine Comparison: None Findings: Normal vertebral body alignment. No acute fractures or dislocation. Multilevel disc space narrowing and endplate osteophyte formation, as well as facet hypertrophy. IMPRESSION: No acute findings. This document has been electronically signed by: Essence Salazar MD on 11/08/2024 13:52:40
[2024-11-08 11:40] VITALS: BP 180/90; PULSE 94; O2SAT 96
[2024-11-08 11:42] VITALS: BP 131/71; PULSE 86; RESP 18; TEMP 37.6; O2SAT 97; BMI 24.9
--- OUTSIDE RECORDS SUMMARY | 2024-11-08 12:03 | XMS_ITS | Clinical Summary ---
Author Organization [facility] ity Address [address] [place] [address] Care Team Providers Care Foot Tender Name Role Phone Unavailable Primary Care Provider [...]
[2024-11-08 12:09] VITALS: PULSE 83; RESP 17; TEMP 37.4; O2SAT 97
--- NOTE | 2024-11-08 12:27 | ED_ITS ---
HPI - Back Pain/Injury General Chief Complaint: Back Pain/Injury Stated Complaint: UPPER BACK PAIN RAD FROM ARMS/HANDS PER EMS Time Seen by Provider: 11/08/24 12:26 Source: patient and EMS Mode of arrival: EMS Limitations: no limitations History of Present Illness ED Provider: JOSELINE AGUIRRE PA-C HPI Narrative: 64 year old female with pmhx significant for hypertension, asthma, depression, fibromyalgia, chronic pain syndrome, CKD, anemia, and migraines presents to the ED today via EMS from home for evaluation of upper back pain which began around 2200 last night while she was watching TV. Pain is exacerbated with movement. Reports tingling down bilateral UEs. Reports history of similar with unremarkable work up. She did not trial any medications for this at home [employer] in ED. Denies any trauma/ injury/ falls. Denies hx of spinal surgery. Denies headache, dizziness, vision changes, chest pain, palpitations, SOB., dysuria, hematuria, abdominal or flank pain. Related Data Home Medications ?Medication ?Instructions ?Recorded ?Confirmed acetaminophen 650 mg 2 tab PO Q8H PRN pain 10/11/22 05/15/24 tablet,extended release lisinopril 40 mg tablet 1 tab PO DAILY 10/11/22 05/15/24 metoprolol succinate 25 mg 1 tab PO DAILY 10/11/22 05/15/24 tablet,extended release 24 hr sumatriptan succinate 25 mg tablet 25 mg PO DAILY PRN Migraine 10/11/22 05/15/24 Headache celecoxib 50 mg capsule 50 mg PO DAILY 05/08/23 05/15/24 duloxetine 60 mg capsule,delayed 60 mg PO DAILY 02/09/24 05/15/24 release trazodone 100 mg tablet 100 mg PO BEDTIME 02/09/24 05/15/24 albuterol sulfate 90 mcg/actuation 2 puff inhalation Q4-6H PRN 05/15/24 05/15/24 aerosol inhaler (Ventolin HFA) wheezing multivitamin-ferrous 1 tab PO QAM 05/15/24 05/15/24 fumarate-folic acid 18 mg-400 mcg tablet (Tab-A-Iraj Multivitamin w-iron) Previous Rx's ?Medication ?Instructions ?Recorded cefuroxime axetil 500 mg tablet 500 mg PO BID #12 tabs 05/20/24 diphenhydramine HCl 25 mg capsule 50 mg (2 x 25 mg) PO TID PRN 08/06/24 (Benadryl) allergic reaction #14 caps diphenhydramine HCl 25 mg capsule 50 mg (2 x 25 mg) PO Q6H PRN 10/12/24 headache, nausea, vomiting #20 caps metoclopramide HCl 10 mg tablet 10 mg PO Q6H PRN nausea and 10/12/24 (Reglan) vomiting #14 tabs morphine 15 mg immediate release 15 mg PO Q6H PRN pain #10 tabs 10/12/24 tablet metoclopramide HCl 5 mg tablet 5 mg PO DAILY #7 tabs 10/18/24 (Reglan) hiizhek-bbdswgljygmoc-unwietkf 250 2 tab PO Q6H PRN headache #20 tabs 10/30/24 mg-250 mg-65 mg tablet (Excedrin Extra Strength) diphenhydramine HCl 25 mg capsule 50 mg (2 x 25 mg) PO Q6H PRN 10/30/24 headache, nausea, vomiting #20 caps metoclopramide HCl 10 mg tablet 10 mg PO Q6H PRN nausea and 10/30/24 (Reglan) vomiting #20 tabs morphine 15 mg immediate release 15 mg PO Q8H PRN pain #4 tabs 10/30/24 tablet lidocaine 5 % topical patch 1 patch topical DAILY #15 ea 11/08/24 (Lidoderm) Allergies Allergy/AdvReac Type Severity Reaction Status Date / Time buspirone [From BuSpar] Allergy Mild Tongue Verified 11/08/24 11:50 Swelling, dizziness melatonin Allergy Itching Verified 11/08/24 11:50 ibuprofen [From Motrin] AdvReac Mild Rash, HTN Verified 11/08/24 11:50 Review of Systems 2 Review of Systems: Constitutional: No fever, chills, fatigue, night sweats, weight changes ENT/Mouth: No ear pain, hearing loss, nasal congestion, sinus pain, rhinorrhea, sore throat Eyes: No eye pain, swelling, redness, vision changes, discharge Cardio: No chest pain, palpitations, BARGER, orthopnea, peripheral edema Pulm: No SOB, cough, sputum, wheezing, dyspnea, hemoptysis GI: No nausea, vomiting, hematemesis, abdominal pain, diarrhea, constipation, hematochezia, melena : No irregular bleeding, dysuria, frequency, urgency, hesitancy, hematuria, flank pain, urinary flow changes, urinary incontinence or retention MSK: +back pain, No neck pain, joint pain, myalgias Skin: No lesions, rashes Neuro: No weakness, numbness, paresthesias, LOC, dizziness, headache All other systems reviewed and are negative. [facility] Past Medical History Attestation statement: The following information was validated with the patient. Source: old records reviewed and nursing notes reviewed Medical History Cellulitis of right lower extremity Fibromyalgia Chronic pain syndrome Neurogenic bladder, NOS Chronic kidney disease, stage 3 Hypertension Anemia Depression Cervical cancer Breast pain Back pain with right-sided radiculopathy Asthma Recurrent cellulitis of lower extremity History of cervical cancer Dyspnea on exertion HTN (hypertension) Anemia Migraines Arthritis Fibromyalgia, primary Surgical History History of right knee joint replacement H/O: hysterectomy Social History Social History Household Members: Other Household Members Other:: sister Housing: House Do you presently have 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 Patient Tobacco Use Status: Current everyday Tobacco user Tobacco use type: Cigarette Cigarette Packs Per Day: 0.4 Cigarettes Per Day: 5 Years Smoked: 40 e-Cigarette/Vaping Use: Never Used Second Hand Smoke Exposure: No Advance Directives Date on File: 05/19/24 service: No Current occupational status: unemployed Physical Exam 2 Vital Signs: Vital Signs: Last Vital Signs Temp 98.7 F 11/08/24 16:00 Pulse 83 11/08/24 16:00 Resp 17 11/08/24 16:00 BP 148/88 H 11/08/24 16:00 Pulse Ox 97 11/08/24 16:00 O2 Del Method Room Air 11/08/24 16:00 BMI result Body Mass Index 24.9 vital signs stable General: Well appearing, in no acute distress. Skin: Warm, dry, intact. No rashes or lesions. Head: Normocephalic, atraumatic. EENT: Hearing is intact b/l. Conjunctiva clear. PERRLA. EOM intact. Moist mucous membranes.? Neck: Supple without LAD Cardiac: Chest wall symmetric. RRR Lungs: Normal respiratory effort without accessory muscle use. CTA bilaterally Back: +ttp along thoracic spine without step off. ttp along thoracic paraspinal muscles. no palpable fluctuance, masses. Abdomen: soft, ND/NT, no rebound or guarding. normoactive bs x4. no cvat. Ext: Upper and lower extremities atraumatic, without tenderness, deformity, swelling or erythema. Full ROM throughout. Neuro: NIH 0. AOx3. Normal speech. Strength 5/5 intact throughout. No saddle anesthesia. Sensation intact to light touch. NV intact distally. Ambulating with steady gait. Course Course Course Narrative: Patient was slight leukocytosis to 11.1. H&H around baseline and above transfusion threshold. Chemistry showing slight hyponatremia to 133. Will encourage oral hydration. BUN around baseline, creatinine wnl. troponin 10.3. patient denies chest pain. Given onset of pain last night with presentation to the ED this afternoon, ACS unlikely. No need to repeat for delta as ACS is unlikely. EKG showing normal sinus rhythm with a rate of 93 beats per minute, QT 330, QTC 410, no acute ischemic changes or ST elevations. I have extremely low suspicion for PE. her exam is consistent with pain that is musculoskeletal in etiology. she reports improvement with toradol/ flexeril/ lido patches. advised follow up with PCP. Patient has remained stable throughout ED visit today. Discussed worrisome signs and symptoms and when to return to the ED. All questions answered at this time. Patient is agreeable with disposition and stable for discharge. Medications Administered Discontinued Medications Generic Name Dose Route Start Last Admin Trade Name Freq PRN Reason Stop Dose Admin Cyclobenzaprine HCl 10 mg 11/08/24 12:55 11/08/24 13:01 Cyclobenzaprine Hcl 10 Mg Tablet PO 11/08/24 12:56 10 mg ONCE ONE Administration Ketorolac Tromethamine 15 mg 11/08/24 12:55 11/08/24 13:01 Ketorolac Tromethamine 15 Mg/Ml Vial IM 11/08/24 12:56 15 mg ONCE ONE Administration Lidocaine 1 patch 11/08/24 12:55 11/08/24 13:02 Lidocaine 4 % Patch Adh..Patch TRANSDERMA 11/08/24 12:56 1 patch ONCE ONE Administration Protocol Medical Decision Making Medical Decision Making [facility] Narrative: 64 year old female with pmhx significant for hypertension, asthma, depression, fibromyalgia, chronic pain syndrome, CKD, anemia, and migraines presents to the ED today via EMS from home for evaluation of upper back pain which began around 2200 last night while she was watching TV. Vital signs stable. afebrile. not hypoxic or tachycardic. she is nontoxic appearing and in NAD. exam nonfocal. on exam ttp along thoracic spine without step off. ttp along thoracic paraspinal muscles. no palpable fluctuance, masses. CMS intact distally. ambulating with steady gait. abd soft nd/nt. Concern for MSK sprain/strain,muscle spasm v radiculopathy Unlikely cord compression, cauda equina, Guillain-[place], epidural abscess. Presentation not consistent with ACS, arrhythmia, PE, pneumonia, viral syndrome, aneurysm, CVA/TIA Plan for basic labs, ekg, imaging, pain control. Differential Diagnosis Differential Diagnoses: The differential diagnosis associated with the presentation includes as above Admission/Observation Not indicated. Lab Data [facility] Lab Attestation statement: I reviewed the patient's lab results. as above. 11/08/24 13:46 11/08/24 13:46 Labs: Lab Results 11/08/24 Range/Units 13:46 WBC 11.1 H (4.8-10.8) X10*3/uL RBC 4.54 (4.20-5.50) X10*6/uL Hgb 10.8 L (12.0-16.0) g/dl Hct 35.2 L (37.0-47.0) % MCV 77.5 L (80.0-98.0) fL MCH 23.8 L (27.0-33.0) pg MCHC 30.7 L (31.0-35.0) g/dl RDW 17.4 H (11.0-16.0) % Plt Count 184 D (160-400) X10*3/uL MPV 10.8 (9.4-12.3) fL Immature Gran % (Auto) 0.3 (0.0-0.4) % Neut % (Auto) 81.9 H (45-73) % Lymph % (Auto) 12.0 L (20-40) % [place] % (Auto) 5.1 (2-11) % Eos % (Auto) 0.4 (0-4) % Baso % (Auto) 0.3 (0-2) % Lymph # (Auto) 1.3 (1.2-4.9) X10*3/uL [place] # (Auto) 0.6 (0.1-1.2) X10*3/uL Eos # (Auto) 0.0 (0.0-0.4) X10*3/uL Baso # (Auto) 0.0 (0.0-0.2) X10*3/uL Abs Immat Gran (auto) 0.03 (0.00-0.03) X10*3/uL Absolute Neuts (auto) 9.1 H (2.0-8.3) x10*3/uL Absolute Nucleated RBC 0.000 (0.0-0.012) X10*3/uL Nucleated RBC % (auto) 0.0 (0.0-0.2) /100WBC Sodium 133 L (135-145) mmol/L Potassium 4.5 D (3.3-5.1) mmol/L Chloride 102 (96-108) mmol/L Carbon Dioxide 22 (22-29) mmol/L Anion Gap 14 (12-20) BUN 20 H (9-16) mg/dL Creatinine 0.96 (0.5-1.4) mg/dL Estim Creat Clear Calc 56.7 Estimated GFR 59 Random Glucose 104 (60-115) mg/dL Calcium 9.6 (8.4-10.2) mg/dL Magnesium 2.2 (1.6-2.6) mg/dL Total Bilirubin 0.2 (0.0-1.0) mg/dL AST 65 H (5-31) U/L ALT 81 H (0-31) U/L Alkaline Phosphatase 86 (39-117) U/L Troponin I High Sens 10.3 D (<3.5-17.0) ng/L Total Protein 8.2 H (6.5-8.0) g/dL Albumin 4.0 (3.5-5.0) g/dL Independent Interpretation I performed an independent interpretation of an: Plain X-Ray Interpretation: xr thoracic spine without fracture Radiology Impression Discussion of test interpretation with radiology: I have reviewed the radiologist's reading. Radiologist Impression: Procedure(s): XR thoracic spine 3V Accession Number(s): [id number] cc: [facility]; Joseline Aguirre~ CLINICAL HISTORY: mid back pain spasm, atraumatic 3 views thoracic spine Comparison: None Findings: Normal vertebral body alignment. No acute fractures or dislocation. Multilevel disc space narrowing and endplate osteophyte formation, as well as facet hypertrophy. IMPRESSION: No acute findings. This document has been electronically signed by: Essence Salazar MD on 11/08/2024 13:52:40 Independent Historian Clinical information obtained from an independent historian. History obtained from or confirmed by: EMS External Record Review External record reviewed: Inpatient record Prescription Management I considered prescription management with: Pain Medication and Other (lido patch) Social Determinants Patient?s care significantly limited by Social Determinants of Health including: Other Social Determinant of Health Critical Care Time Critical Care Time Critical Care Time: No Discharge Plan Discharge Clinical Impression: Back pain, thoracic Patient Disposition: Home, Self-Care Instructions: Back Pain (ED) Additional Instructions: You were evaluated in the Emergency Department today for your back pain.? Your evaluation did not show signs of medical conditions requiring emergent intervention at this time. Avoid bending, lifting, or twisting. Use ice several times per day for 20 minutes at a time for the next 48 hours and then change to heat. We recommend you take 600mg ibuprofen every 6 hours or tylenol 650mg every 6 hours as needed for pain. If needed, you can alternate these medications so that you take one medication every 3 hours. For example, at noon take ibuprofen, then at 3pm take tylenol, then at 6pm take ibuprofen. Lidoderm patches are numbing patches. Apply to painful areas. Please schedule an appointment for follow-up with your primary care provider this week for further evaluation of your symptoms. Return to the Emergency Department if you experience worsening back pain, difficulty walking, fevers, numbness, tingling, incontinence, or any other concerning symptoms. In the case of an emergency call 911. Prescriptions: New lidocaine [Lidoderm] 5 % adhesive patch,medicated 1 patch topical DAILY Qty: 15 0RF Rx Instructions: leave on most painful area for up to 12 hrs No Action sumatriptan succinate 25 mg tablet 25 mg PO DAILY PRN (Reason: Migraine Headache) Rx Instructions: MRX1 2 hours later if needed metoprolol succinate 25 mg tablet extended release 24 hr 1 tab PO DAILY lisinopril 40 mg tablet 1 tab PO DAILY acetaminophen 650 mg tablet extended release 2 tab PO Q8H PRN (Reason: pain) celecoxib 50 mg capsule 50 mg PO DAILY albuterol sulfate [Ventolin HFA] 90 mcg/actuation HFA aerosol inhaler 2 puff INHALATION Q4-6H PRN (Reason: wheezing) Tab-A-Iraj Multivitamin w-iron 18-400 mg-mcg tablet 1 tab PO QAM cefuroxime axetil 500 mg tablet 500 mg PO BID Qty: 12 0RF diphenhydramine HCl [Benadryl] 25 mg capsule 50 mg PO TID PRN (Reason: allergic reaction) Qty: 14 0RF metoclopramide HCl [Reglan] 5 mg tablet 5 mg PO DAILY Qty: 7 0RF diphenhydramine HCl 25 mg capsule 50 mg PO Q6H PRN (Reason: headache, nausea, vomiting) Qty: 20 0RF morphine 15 mg tablet 15 mg PO Q8H PRN (Reason: pain) Qty: 4 0RF Rx Instructions: Partial Fill upon patient request. Excedrin Extra Strength 250-250-65 mg tablet 2 tab PO Q6H PRN (Reason: headache) Qty: 20 0RF metoclopramide HCl [Reglan] 10 mg tablet 10 mg PO Q6H PRN (Reason: nausea and vomiting) Qty: 20 0RF trazodone 100 mg tablet 100 mg PO BEDTIME duloxetine 60 mg capsule,delayed release(DR/EC) 60 mg PO DAILY diphenhydramine HCl 25 mg capsule 50 mg PO Q6H PRN (Reason: headache, nausea, vomiting) Qty: 20 0RF morphine 15 mg tablet 15 mg PO Q6H PRN (Reason: pain) Qty: 10 0RF Rx Instructions: Patient may request partial fill; Partial Fill upon patient request. metoclopramide HCl [Reglan] 10 mg tablet 10 mg PO Q6H PRN (Reason: nausea and vomiting) Qty: 14 0RF Referrals: [facility] [Primary Care Provider] - Interventions: ED Discharge Assessment Last Done: 11/08/24 16:00 Discharge Date/Time: 11/08/24 16:01 Print Language: Estonian
--- NOTE | 2024-11-08 12:55 | ECG_ITS ---
Test Reason : SCAPULA PAIN Blood Pressure : */* mmHG Vent. Rate : 93 BPM Atrial Rate : 93 BPM P-R Int : 132 ms QRS Dur : 90 ms QT Int : 330 ms P-R-T Axes : 10 -13 44 degrees QTcB Int : 410 ms Normal sinus rhythm Minimal voltage criteria for LVH, may be normal variant ( R in aVL ) Nonspecific ST and T wave abnormality Abnormal ECG When compared with ECG of 18-Oct-2024 14:20, No significant changes seen Referred By: Joseline Aguirre Electronically Signed By: KINA ROJAS
[2024-11-08] MEDS: Ketorolac Tromethamine 15 MG/ML VIAL IM (13:01)
[2024-11-08] MEDS: Cyclobenzaprine HCl 10 MG TABLET PO (13:01)
[2024-11-08] MEDS: Lidocaine 4 % Patch ADH..PATCH 1 PATCH TRANSDERMA (13:02)
[2024-11-08 13:52] LABS: MANUAL DIFF FLAG NO
[2024-11-08 13:56] LABS: Basophils Percent Auto 0.3 % (0-2); Eosinophils Percent Auto 0.4 % (0-4); Hematocrit 35.2 % (37.0-47.0); Hemoglobin 10.8 g/dl (12.0-16.0); Imm Gran Abs Auto 0.03 X10*3/uL (0.00-0.03); Imm Gran Pct Auto 0.3 % (0.0-0.4); Lymphocytes Absolute Auto 1.3 X10*3/uL (1.2-4.9); Mean Corpuscular HGB Conc 30.7 g/dl (31.0-35.0); Mean Corpuscular Hemoglobin 23.8 pg (27.0-33.0); Mean Corpuscular Volume 77.5 fL (80.0-98.0); Mean Platelet Volume 10.8 fL (9.4-12.3); Monocytes Absolute Auto 0.6 X10*3/uL (0.1-1.2); Monocytes Percent Auto 5.1 % (2-11); Neutrophils Absolute Auto 9.1 x10*3/uL (2.0-8.3); Neutrophils Percent Auto 81.9 % (45-73); Platelet Count 184 X10*3/uL (160-400); Red Blood Count 4.54 X10*6/uL (4.20-5.50); Red Cell Distribution Width 17.4 % (11.0-16.0); White Blood Count 11.1 X10*3/uL (4.8-10.8)
[2024-11-08 14:09] LABS: Alanine Aminotransferase 81 U/L (0-31); Alkaline Phosphatase 86 U/L (39-117); Anion Gap 14 (12-20); Aspartate Amino Transferase 65 U/L (5-31); Bilirubin Total 0.2 mg/dL (0.0-1.0); Blood Urea Nitrogen 20 mg/dL (9-16); Calcium 9.6 mg/dL (8.4-10.2); Carbon Dioxide 22 mmol/L (22-29); Chloride 102 mmol/L (96-108); Creatinine Clr Calc Pharmacy 56.7; Estimated Glomerular Filt Rate 59; Glucose Random 104 mg/dL (60-115); Magnesium 2.2 mg/dL (1.6-2.6); Potassium 4.5 mmol/L (3.3-5.1); Sodium 133 mmol/L (135-145); Total Protein 8.2 g/dL (6.5-8.0)
[2024-11-08 14:17] LABS: Troponin-I High Sensitivity 10.3 ng/L (<3.5-17.0)
[2024-11-08 16:00] VITALS: BP 148/88; PULSE 83; RESP 17; TEMP 37.1; O2SAT 97
== END 2024-11-08 16:01 | disposition home or self-care (01) ==
PROVIDERS: Physician Assistant Medical; Emergency Provider Emergency Medicine
DX: M54.6 Pain in thoracic spine (principal); F17.210 Nicotine dependence, cigarettes, uncomplicated
CPT/HCPCS: 36415; 72072; 80053; 83735; 84484; 85025; 93005; 96372; 99284; J1885

== ENCOUNTER → 2024-11-08 12:54 | Outpatient (BNV) | payer MEDICAID, SELFPAY | PROVIDERS: Emergency Provider Emergency Medicine; Visit Provider Radiology Diagnostic Radiology | DX: M54.6 Pain in thoracic spine (principal) | CPT/HCPCS: 72072 ==

== ENCOUNTER → 2024-11-08 12:55 | Outpatient (BNV) | payer MEDICAID, SELFPAY | PROVIDERS: Emergency Provider Emergency Medicine; Visit Provider Internal Medicine | DX: R94.31 Abnormal electrocardiogram [ECG] [EKG] (principal) | CPT/HCPCS: 93010 ==

== ENCOUNTER 2025-03-12 13:12 | Outpatient (AMB) | payer MEDICAID, SELFPAY ==
[2025-03-12 13:38] VITALS: BP 142/78; PULSE 74; O2SAT 98; BMI 29.2
--- NOTE | 2025-03-12 13:38 | A.OFFVIS_ITS ---
Vital Signs 03/12/25 13:38 Height 5 ft 4 in Weight 170 lb BMI 29.2 BP 142/78 H Blood Pressure Location Rt brachial Position Sitting Pulse 74 Pulse Source Pulse Oximeter Pulse Oximetry (%) 98 Oxygen Delivery Method Room Air Intake Visit Reasons: [id number] Headaches Copy Messenger Required: No Accompanied by: Self / Same As Patient Allergies buspirone (From BuSpar) Allergy (Mild, Verified 03/12/25 13:44) Tongue Swelling, dizziness melatonin Allergy (Verified 03/12/25 13:44) Itching ibuprofen (From Motrin) Adverse Reaction (Mild, Verified 03/12/25 13:44) Rash, HTN HPI Comments Details: History of Present Illness The patient is a 64-year-old female presenting with chronic headaches. She reports experiencing headaches since her teenage years, with a significant worsening in intensity and frequency recently. The headaches are described as migraines, with associated symptoms of light sensitivity, nausea, and pain localized to the right side of the head and neck. 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 Bettencourt) of her right TKR from 2020. Since, patient has been treated with Ceftriaxone 2 g IV daily (11/12?02/09, Vancomycin IV (11/12) Piperacillin/tazobactam IV (11/11)- and per ID note, patient is currently on amoxicillin 1 g every 8 hours for a 6 week cycle, to be followed by chronic antibiotic suppression. Upon hospital discharge, patient was started on Eliquis 2.5 mg b.i.d. in addition to her baby aspirin 81 mg daily for DVT prophylaxis. [facility] is managing her orthopedic and pain symptoms. She is due to follow-up with [facility] infectious disease in her future. Patient also states that she is due to have a follow-up procedure at [facility], where ?something is supposed to be planted in my chest). Of note, patient had a head CT and CTA head/neck on 10/18/2024, for reports of 1 month of right-sided headache-results of which were notable for bilateral vertebral artery stenosis.Patient had [facility] neuro endovascular consult with Dr. Brock Hampton, for CTA head and neck findings of moderate right vertebral artery stenosis at its origin and severe stenosis at the origin of the left vertebral artery, subtle luminal irregularities involving the right vertebral artery at C5, C6 without obvious dissection flap or pseudoaneurysm. As well as bilateral mild carotid artery origin stenosis. She was advised to continue aspirin 81 mg daily, rosuvastatin 5 mg daily. She was advised to avoid head and neck manipulation, chiropractic neck manipulation. There was plan to have follow-up CTA in 3 months for serial surveillance. It was also suggested the patient may benefit from having a C-spine MRI, through PCP office, or follow-up neurology/neurosurgical evaluation. Past Medical History - Cervical cancer status post hysterectomy in 1996 - Neurogenic bladder requiring catheterization - Knee replacement surgery with subsequent infection - Hypertension- on blood pressure medications, including lisinopril - Hyperlipidemia-on rosuvastatin. No recent available liver panels available for review. - Recurrent RLE cellulitis - Hyperferritinemia- 02/10/2024 ferritin level 657 elevated - Chronic anemia - Chronic kidney disease stage 3 - Back pain with right-sided radiculopathy - Obesity - Chronic pain syndrome - Scoliosis - Chronic arthritis - Asthma - Depression - Vertebral artery stenosis Family History - Mother had a history of migraines Review of Systems - Neurological: Reports chronic headaches with light sensitivity and nausea. Reports numbness, weakness, swelling, skin color changes. - Musculoskeletal: Reports chronic pain and stiffness and weakness, especially in right knee, which contribute to her overall discomfort and functional limitations. - Genitourinary: Reports frequent urination and occasional black urine. Denies hematuria or dysuria. - Respiratory: Denies cough, wheezing, or dyspnea. - Cardiovascular: Denies chest pain or palpitations.Reports leg cramps when walking. - Gastrointestinal: Reports nausea associated with headaches. Denies vomiting or abdominal pain. - Psychiatric: Reports Depression. Also reports sleep disturbances including difficulty falling asleep and frequent awakenings, which may be exacerbated by her chronic pain and headaches. Results - Imaging: Head and neck CTA showed high-grade bilateral vertebral artery stenosis. Headache Review Headache questionnaire: Onset of initial headache symptoms: Since teenage years Initial precipitating cause of this headache: None Previous workup for this headache: Brain MRI at [facility] Types of headache disorders: Chronic migraine Typical headache characteristics: Right side, right neck pain, light sen sitivity, nausea, sensitivity to smell, blurry vision Prodrome symptoms: Denies Aura: Denies Headache pain intensity: More intense recently Location, quality, characteristics of this headache: Right side, right neck Associated migraine symptoms: Light sensitivity, nausea, sensitivity to smell, blurry vision Headache postdrome: Denies Headache aggravating factors: Weather changes (rainy or cloudy) Headache triggers: Weather changes Time of day this headache usually occurs: No specific time of day Frequency of this headache: Every week Duration of this headache: 3-4 days How does headache impact your life? Makes it difficult to do her daily activities Current acute medication use/interventions: None effective Current preventative medication use: None Current non-pharmacological interventions: None effective Headache Lifestyle Factors - She denies alcohol and marijuana use but smokes cigarettes, approximately one pack lasting four to five days. - Housing: Resides in [place]. - Family: Son is her LINE CONTROLLER, assisting with daily activities. - Reports drinking water and cranberry juice regularly. She experiences nausea during headaches, which affects her appetite and dietary intake. Sleep - Typical bedtime around 9 PM, with frequent awakenings throughout the night. - Difficulty falling back asleep, often turning in bed until sleep resumes. - Reports feeling tired during the day due to poor sleep quality. [facility] Medical History (Updated 04/05/25 @ 16:55 by JESUS Mercedse) Positive ASAEL (antinuclear antibody) Cellulitis of right lower extremity Fibromyalgia Chronic pain syndrome Neurogenic bladder, NOS Chronic kidney disease, stage 3 Hypertension Anemia Depression Cervical cancer Breast pain Back pain with right-sided radiculopathy Asthma Recurrent cellulitis of lower extremity History of cervical cancer Dyspnea on exertion HTN (hypertension) Anemia Migraines Arthritis Fibromyalgia, primary Surgical History History of right knee joint replacement H/O: hysterectomy Social History Household Members: Other Household Members Other:: sister Housing: House Do you presently have visiting nurse or other home services: Yes (reconnaissance man 10 hours a week) Unable to assess alcohol history related to: Unknown Alcohol intake: never Comment: refusing fall risk interventions. Patient Tobacco Use Status: Current everyday Tobacco user Tobacco use type: Cigarette Cigarette Packs Per Day: 0.4 Cigarettes Per Day: 5 Years Smoked: 40 e-Cigarette/Vaping Use: Never Used Second Hand Smoke Exposure: No Advance Directives Date on File: 05/19/24 service: No Current occupational status: unemployed Physical Exam Vital Signs: Last Vital Signs Pulse 74 03/12/25 13:38 BP 142/78 H 03/12/25 13:38 Pulse Ox 98 03/12/25 13:38 Oxygen Delivery Method Room Air 03/12/25 13:38 BMI result Body Mass Index 29.2 Const Orientation/consciousness: patient oriented x3 Resp Effort & Inspection: normal respiratory effort and able to speak in complete sentences Neuro General: patient oriented x3 Cranial nerves: Yes CN's II-XII intact bilaterally Cognition (Neuro): normal cognition Gait exam (Neuro): Normal gait present Deep tendon reflexes (DTR's): Right triceps reflex intensity grade: 2+, Left triceps reflex intensity grade: 2+, Rt Biceps (C5, C6): 2+, Left biceps reflex intensity grade: 2+, Right brachioradialis reflex intensity grade: 2+ and Left brachioradialis reflex intensity grade: 2+ Coordination: [id number] test normal Pupils: Normal pupillary reactivity/response: bilateral Psych Appearance: grossly normal Mental Status: mental status grossly normal Speech and movement: Normal speech and movement present Affect: normal affect Attitude: cooperative Thought process: Normal thought process present Results Reviewed Results Reviewed: 10/18/2024, CT Head with and without contrast. CT angiography head and neck with contrast. 3D Postprocessing. CLINICAL HISTORY: Persistent right-sided BENÍTEZ and neck pain x1 month Comparison: None Findings: HEAD CT: No intra-axial mass, midline shift, hydrocephalus, or acute hemorrhage. Mild diffuse cerebral volume loss. Mild degree of patchy low-density within the periventricular and subcortical white matter. No abnormal intracranial enhancement. The visualized paranasal sinuses and mastoid air cells are normal. The orbits are within normal limits. No skull fracture. HEAD AND NECK CTA: Aortic arch and cervical great vessels are patent. There is high-grade narrowing of the bilateral vertebral artery origins. Intracranial arteries are patent. No aneurysm, dissection, or occlusion. No abnormal intracranial enhancement. The visualized thyroid gland is unremarkable. No cervical mass or fluid collection. Lung apices clear. No acute fracture. IMPRESSION: 1. No acute intracranial abnormality. 2. High-grade bilateral vertebral artery origin stenoses. 3. Otherwise negative CT angiography of the head and neck. Lab Results Test Name Test Result Date/Time WBC 8.5 x10E3/uL 12/16/2024 11:15 EDT RBC 3.67 12/16/2024 11:15 EDT Hgb 8.9 Gm/dL 12/16/2024 11:15 EDT Hct 29.3 % 12/16/2024 11:15 EDT MCV 80 fL 12/16/2024 11:15 EDT MCH 24.3 pg 12/16/2024 11:15 EDT MCHC 30.4 Gm/dL 12/16/2024 11:15 EDT Platelet Count 369 x10E3/uL 12/16/2024 11:15 EDT RDW 14.9 % 12/16/2024 11:15 EDT Abs. Neut 3.5 x10E3/uL 12/16/2024 11:15 EDT Abs. Lymph 3.9 x10E3/uL 12/16/2024 11:15 EDT Abs. Trigg 0.6 x10E3/uL 12/16/2024 11:15 EDT Abs. Eo 0.3 x10E3/uL 12/16/2024 11:15 EDT Abs. Baso 0.1 x10E3/uL 12/16/2024 11:15 EDT Neut % 42 % 12/16/2024 11:15 EDT Lymph % 46 % 12/16/2024 11:15 EDT Trigg % 7 % 12/16/2024 11:15 EDT Eos % 4 % 12/16/2024 11:15 EDT Baso % 1 % 12/16/2024 11:15 EDT Imm Gran 0 % 12/16/2024 11:15 EDT Abs. Imm Gran 0.0 x10E3/uL 12/16/2024 11:15 EDT Sodium 140 mmol/L 12/16/2024 11:15 EDT Potassium 4.4 mmol/L 12/16/2024 11:15 EDT Chloride 104 mmol/L 12/16/2024 11:15 EDT Bicarbonate Level 23 mmol/L 12/16/2024 11:15 EDT Glucose Level 74 mg/dL 12/16/2024 11:15 EDT BUN 11 mg/dL 12/16/2024 11:15 EDT Creatinine-Blood 0.65 mg/dL 12/16/2024 11:15 EDT Estimated GFR Creatinine 99 ML/MIN/1.73 M2 12/16/2024 11:15 EDT Calcium 9.8 mg/dL 12/16/2024 11:15 EDT Protein, Total 7.7 Gm/dL 12/16/2024 11:15 EDT Albumin 4.3 Gm/dL 12/16/2024 11:15 EDT Alkaline Phosphatase 114 IU/L 12/16/2024 11:15 EDT AST (SGOT) 22 IU/L 12/16/2024 11:15 EDT ALT (SGPT) 21 IU/L 12/16/2024 11:15 EDT Bilirubin, Total <0.2 mg/dL 12/16/2024 11:15 EDT C-Reactive Protein (mg/L) 4 mg/L 12/16/2024 11:15 EDT Globulin Total 3.4 Gm/dL 12/16/2024 11:15 EDT BUN/Creat Ratio 17 12/16/2024 11:15 EDT [facility] infectious disease, Microbiology/ID Work-up: -Tissue right tibia 11/11: No organisms on Gram stain, culture negative -Tissue right patella 11/11: No organisms on Gram stain, culture negative -Tissue right femur 11/11: GPC's on Gram stain, culture negative -Right knee aspiration 11/11: No organisms on Gram stain,?group G beta-hemolytic strep?on culture -Blood cultures 11/10: Negative Culture/Event_id: ?Body Fluid Cult Aer/Gram St/Extend Anaer/[id number] Collect date: ?11/11/24 03:11 ? ? Result Status: ?Auth (Verified) Result Date: ?11/25/24 12:07 ? ? ? Specimen: KNEE RIGHT ? >?Body Fluid Culture Isolate 2:?Not applicable? ? >?Gram Stain Result:?Final report? ? >?Gram Stain Isolate 2:?No organisms seen? >?Gram Stain Isolate 1:?Few white blood cells. ? >?Body Fluid Culture Results:?Final report? >?Body Fluid Culture Isolate 1:?Beta hemolytic Streptococcus, group G Scant growth Penicillin and ampicillin are drugs of choice for treatment of beta-hemolytic streptococcal infections. Susceptibility testing of penicillins and other beta-lactam agents approved by the FDA for treatment of beta-hemolytic streptococcal infections need not be performed routinely because nonsusceptible isolates are extremely rare in any beta-hemolytic streptococcus and have not been reported?for Streptococcus pyogenes (group A).?This isolate is presumed to be resistant to clindamycin based on?detection of inducible clindamycin resistance in vitro by D test.?Clindamycin may still be effective in some patients. ? >?Anaerobic Cult, Extended Incub:?Final report? ? >?Anaerobic Culture Isolate 1:?No growth after 14 days >?Body Fluid Antimicrobial Susceptibility:? S ?= Susceptible; I ?= Intermediate; R ?= Resistant ?P ?= Positive; N ?= Negative ? MICS are expressed in micrograms per mL ??Antibiotic ? RSLT#1 ? ?RSLT#2 ? ?RSLT#3 ? ?RSLT#4 Cefepime ? S Cefotaxime ? S Ceftriaxone ?S Chloramphenicol ?S Clindamycin ?R Erythromycin ? R Levofloxacin ? S Penicillin ? S Vancomycin ? S Assessment & Plan Assessment & Plan (1) Worsening headaches: Code(s): R51.9 - Headache, unspecified Category: Medical (2) Chronic migraine without aura: Code(s): G43.709 - Chronic migraine without aura, not intractable, without status migrainosus Category: Medical (3) Excessive daytime sleepiness: Code(s): G47.19 - Other hypersomnia Category: Medical (4) Snoring: Code(s): R06.83 - Snoring Category: Medical (5) Sleep difficulties: Code(s): G47.9 - Sleep disorder, unspecified Category: Medical Plan Discussion Notes During the visit, I discussed the patient's chronic migraine and the potential need for an MRI to rule out any intracranial changes due to her worsening symptoms. We reviewed her current medication regimen, which unfortunately patient could not clearly confirm. For instance, she did not know which blood thinners she was on, and did not know specifically why she was prescribed a blood thinner. I advised her on the importance of medication adherence and the potential benefits of a sleep study to address her sleep disturbances. We also discussed the possibility of adjusting her headache management plan, considering her current symptoms, , however advised her that we would need to obtain notes from her PCP, orthopedic office, and ID office to confirm upcoming procedures, and current medication regimen. However, patient was advised to discontinue sumatriptan due to now known vertebral artery stenosis. Assessment and Plan We will request notes from PCP, orthopedic office, ID, cardiology-in order to determine follow-up treatment options. Pt advised to undergo: Fasting labs to assess for underlying etiologies of worsening headaches and daytime tiredness. Brain MRI with and without contrast to assess for underlying etiologies of worsening headaches. Home sleep study to assess for sleep apnea. For overall headache management: * Optimize good self-care, including but not limited to maintaining a healthy diet, adequate fluid intake, adequate sleep, and engaging in regular physical activity. * Track headaches, especially after any treatment regimen changes. Migraine [employer] is one of many headache tracking apps. * Information shared on non-pharmacological interventions which may help to alleviate headache attack burden. For acute headache treatment: Discussed importance of taking acute medications at the first sign of headache, however stressed importance of avoiding acute medication overuse (especially with combined headache medications). Discontinue sumatriptan due to vertebral artery stenosis. May take Tylenol 650-1000 mg every 4-6 hours as needed at onset of headache. Previous acute migraine medication trials: Sumatriptan was ineffective Acute migraine medication contraindications: All triptans and DHE due to bilateral vertebral artery stenosis Future considerations: Trial of Gepant For headache prevention medication: Preventative medications should be taken routinely as prescribed for best effect, it may take several weeks for full effect to take effect. Magnesium 400 mg daily at bedtime It appears patient is on metoprolol succinate daily for hypertension. Previous migraine prevention medication trials: Riboflavin cause constipation. Migraine prevention medication contraindications: We will need to review records to determine full contraindications, however would use caution due to risk for polypharmacy. Case discussed with Dr Cayla Rico. Will follow-up upon review of above and patient to follow-up in clinic in 3-4 months or sooner prn. Medications: Discontinued metoclopramide HCl Discontinued Reason: Patient no longer taking 10 mg PO Q6H PRN 14 tabs 0RF nausea and vomiting metoclopramide HCl Discontinued Reason: Patient no longer taking 5 mg PO DAILY 7 tabs 0RF Coding Level of Care Code New Pt Level 4 (15261) Diagnoses Worsening headaches R51.9 Chronic migraine without aura G43.709 Excessive daytime sleepiness G47.19 Snoring R06.83 Sleep difficulties G47.9
--- OUTSIDE RECORDS SUMMARY | 2025-03-12 15:52 | XMS_ITS | Encounter Summary ---
Author Organization [employer] Address [address] [place] [address] Care Team Providers Care Voltage Regulator Assembler Name Role Phone Lilly Cowart MD Primary Care Provider [phone] Marc Dahl RN Unavailable [phone] Karla Harrison Unavailable Reason for Visit * Reason Onset Date Comments Durable Medical Equipment 02/16/2025 Encounter Details Date Type Department Care Team (Late st Contact Info) Description 02/16/2025 Telephone [facility] [address] [place] [address] Lilly Cowart MD [address] [place] [address] Durable Medical Equipment Social History Tobacco Use Types Packs/Day Years Used Date Smoking Tobacco: Former Cigarettes Q uit: 09/03/2022 Smokeless Tobacco: Never Comments:3 cigarettes a day Alcohol Use Standard Drinks/Week Comments Never 0 (1 standard drink = 0.6 oz pur e alcohol) Depression Answer Date Recorded Patient Health Questionnaire-9 Score 9 02/13/2025 Patient Health Questionnaire-9 Score 9 02/13/2025 Last PHQ-9: Questionnaire Data Not on file 0 02/13/2025 Housing Stability Answer Date Recorded What is [...] Answer Date Recorded Patient Health Questionnaire-2 Score 3 02/13/2025 Comments Unknown Sex and Gender Information Value Date Recorded Sex Assigned at Female 07/17/2022 10:14 AM EDT Legal Sex Female 10:14 AM EDT Gender Identity Female 07/17/2022 10:14 AM EDT Sexual Orientation Straight 07/17/2022 10 :14 AM EDT documented as of this encounter Miscellaneous Notes * Telephone Encounter - Duncan Wilkerson - 03/10/2025 12:33 PM EDT Tc from pt returning call in regards status of DME pt inform she doesn't know where the scooter gotsent to as no one reached out to inform. Please return call to pt for updated information [phone] * Telephone Encounter - Luz Marlow - 02/18/2025 2:13 PM EDT Order is being processed with [place] and Provider. Please see previous encounter. * Telephone Encounter - Maria Alejandra Garduno - 02/16/2025 2:42 PM EDT TC from pt requesting a call back in regards to DME order for scooter . Contact pt at [phone] documented in this encounter Plan of Treatment Not on file documented as of this encounter Visit Diagnoses Not on filedocumented in this encounter Additional Health Concerns Assessment Noted Time PHQ-9 Depression Total Score: 9 02/14/20 25 8:03 AM EDT documented as of this encounter Care Teams Voltage Regulator Assembler Relationship Specialty Start Date End Date Lilly Cowart MD [address] [place] [address] PCP - General Family Medicine 11/16/21 Marc Dahl, RN [address] [place] [id number] Registered Nurse Family Medicine 02/26/25 Karla Harrison 02/26/25 documented as of this encounter
== END 2025-03-12 14:59 | disposition home or self-care (01) ==
LOC: HO.HSMS 13:12
PROVIDERS: Visit Provider Nurse Practitioner Family
DX: R51.9 Headache, unspecified (principal); G43.709 Chronic migraine without aura, not intractable, without status migrainosus; G47.19 Other hypersomnia; R06.83 Snoring; G47.9 Sleep disorder, unspecified
CPT/HCPCS: 99204

== ENCOUNTER → 2025-03-12 13:12 | Outpatient (BNVA) | payer MEDICAID, SELFPAY | PROVIDERS: Visit Provider Nurse Practitioner Family | DX: G43.709 Chronic migraine without aura, not intractable, without status migrainosus (principal); G47.9 Sleep disorder, unspecified; R06.83 Snoring; G47.19 Other hypersomnia | CPT/HCPCS: 99212 ==

== ENCOUNTER 2025-04-11 04:16 | Emergency (ER) | payer MEDICAID, SELFPAY ==
[2025-04-11 04:35] VITALS: BP 159/95; PULSE 67; RESP 18; TEMP 36.9; O2SAT 97; BMI 30.4
[2025-04-11 04:46] VITALS: BP 191/71; PULSE 73; RESP 17; TEMP 36.7; O2SAT 99
--- NOTE | 2025-04-11 04:49 | ED.GENADULT ---
HPI - General Adult General Chief complaint: General Medical Stated complaint: Gen Med Time Seen by Provider: 04/11/25 04:46 History of Present Illness ED Provider: Robbi Traore MD HPI narrative: 64-year-old female with leg pain. Patient reports diffuse pain she has chronic pain in the right leg from the knee replacement this year. No swelling redness or swelling of the joint. She mainly reporting generalized pain hard to localize consistent with fibromyalgia. No fever or chills weight loss or weight gain difficulty breathing Related Data Home Medications ?Medication ?Instructions ?Recorded ?Confirmed acetaminophen 650 mg 2 tab PO Q8H PRN pain 10/11/22 05/15/24 tablet,extended release lisinopril 40 mg tablet 1 tab PO DAILY 10/11/22 05/15/24 metoprolol succinate 25 mg 1 tab PO DAILY 10/11/22 05/15/24 tablet,extended release 24 hr duloxetine 60 mg capsule,delayed 60 mg PO DAILY 02/09/24 05/15/24 release trazodone 100 mg tablet 100 mg PO BEDTIME 02/09/24 05/15/24 albuterol sulfate 90 mcg/actuation 2 puff inhalation Q4-6H PRN 05/15/24 05/15/24 aerosol inhaler (Ventolin HFA) wheezing multivitamin-ferrous 1 tab PO QAM 05/15/24 05/15/24 fumarate-folic acid 18 mg-400 mcg tablet (Tab-A-Iraj Multivitamin w-iron) aspirin 81 mg tablet,delayed 81 mg PO DAILY 03/12/25 03/12/25 release Previous Rx's ?Medication ?Instructions ?Recorded cefuroxime axetil 500 mg tablet 500 mg PO BID #12 tabs 05/20/24 diphenhydramine HCl 25 mg capsule 50 mg (2 x 25 mg) PO TID PRN 08/06/24 (Benadryl) allergic reaction #14 caps diphenhydramine HCl 25 mg capsule 50 mg (2 x 25 mg) PO Q6H PRN 10/12/24 headache, nausea, vomiting #20 caps morphine 15 mg immediate release 15 mg PO Q6H PRN pain #10 tabs 10/12/24 tablet ygmddmo-qwfqeinfceejz-itftmqmn 250 2 tab PO Q6H PRN headache #20 tabs 10/30/24 mg-250 mg-65 mg tablet (Excedrin Extra Strength) diphenhydramine HCl 25 mg capsule 50 mg (2 x 25 mg) PO Q6H PRN 10/30/24 headache, nausea, vomiting #20 caps metoclopramide HCl 10 mg tablet 10 mg PO Q6H PRN nausea and 10/30/24 (Reglan) vomiting #20 tabs morphine 15 mg immediate release 15 mg PO Q8H PRN pain #4 tabs 10/30/24 tablet lidocaine 5 % topical patch 1 patch topical DAILY #15 ea 11/08/24 (Lidoderm) Allergies Allergy/AdvReac Type Severity Reaction Status Date / Time buspirone (From BuSpar) Allergy Mild Tongue Verified 04/11/25 04:38 Swelling, dizziness melatonin Allergy Itching Verified 04/11/25 04:38 ibuprofen (From Motrin) AdvReac Mild Rash, HTN Verified 04/11/25 04:38 [facility] Past Medical History Medical History (Updated 04/12/25 @ 00:02 by Carol Ann Bowling) Positive ASAEL (antinuclear antibody) Cellulitis of right lower extremity Fibromyalgia Chronic pain syndrome Neurogenic bladder, NOS Chronic kidney disease, stage 3 Hypertension Anemia Depression Cervical cancer Breast pain Back pain with right-sided radiculopathy Asthma Recurrent cellulitis of lower extremity History of cervical cancer Dyspnea on exertion HTN (hypertension) Anemia Migraines Arthritis Fibromyalgia, primary Surgical History History of right knee joint replacement H/O: hysterectomy Social History Social History Household Members: Other Household Members Other:: sister Housing: House Do you 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 Patient Tobacco Use Status: Current everyday Tobacco user Tobacco use type: Cigarette Cigarette Packs Per Day: 0.4 Cigarettes Per Day: 5 Years Smoked: 40 Smoked in Last 30 Days: Yes e-Cigarette/Vaping Use: Never Used Second Hand Smoke Exposure: No Use of substances other than those prescribed or required for medical reasons: No Advance Directives: Yes Advance Directives on File: Yes Advance Directives Date on File: 05/19/24 Patient : No service: No Current occupational status: unemployed Physical Exam ED Exam Exam: EXAM: Gen: Alert, awake, well appearing, well hydrated. Head: Atraumatic Eyes: Anicteric, Normal conjunctiva. ENT: Moist mucosa, no pallor. ? Neck: Supple. Skin: ?No observable rash or bruising on exposed or examined skin Respiratory: Breathing comfortably, No distress.Clear to auscultation bilaterally, symmetric chest expansion, No wheeze, rales, ronchi. Cardiovascular: Regular rate and rhythm. No murmurs or rub. Well perfused periphery, warm extremities. No edema. ? Abdominal: No focal tenderness. Soft, no objective distension. No palpable masses or obvious organomegaly. ?No guarding, no rebound tenderness or other peritoneal findings. : No flank tenderness. Neuro: Alert. Gross movement of all extremities intact. ? Psych: Calm. Cooperative. MSK: No grossly visible deformity. Compartments soft though mildly tender with palpation of all muscle compartments. No objective swelling of the right lower extremity full range of motion of the right knee. Vital signs: See flowsheet Vital Signs: Vital Signs - 24 hr 04/11/25 04:35 04/11/25 04:46 Temperature 98.4 F 98.1 F Pulse Rate 67 73 Respiratory Rate 18 17 Blood Pressure 159/95 H 191/71 H Pulse Oximetry 97 99 Oxygen Delivery Method Room Air Room Air BMI result Body Mass Index 30.4 Medications Administered Discontinued Medications Generic Name Dose Route Start Last Admin Trade Name Freq PRN Reason Stop Dose Admin Acetaminophen 975 mg 04/11/25 04:55 04/11/25 05:12 Acetaminophen 325 Mg Tablet PO 04/11/25 04:56 975 mg ONCE ONE Administration Gabapentin 300 mg 04/11/25 04:55 04/11/25 05:13 Gabapentin 300 Mg Capsule PO 04/11/25 04:56 300 mg ONCE ONE Administration Oxycodone HCl 5 mg 04/11/25 04:55 04/11/25 05:13 Oxycodone Hcl Immed Release 5 Mg Tablet PO 04/11/25 04:56 5 mg ONCE ONE Administration Medical Decision Making Medical Decision Making MDM Narrative: Medical Decision Makin-year-old female with chronic recurrent pain worse today rather diffuse and poorly localized. Total knee replacement in the past no objective signs to suggest DVT or infection. The patient has fibromyalgia this may be an exacerbation of this. Analgesia provided. No focal deficits or other red flag symptoms or signs. Patient is ambulatory vital signs reassuring. Preliminary Favored Differential Diagnosis: Fibromyalgia, myalgia, strain among additional considered etiologies Testing Interpreted Independently: Not Applicable Radiology or Lab testing Results Reviewed: Not Applicable Consults: Not Applicable Independent Historians/External Chart Reviews: Not Applicable Social Determinants of Health Impacting MDM/Planning: Not Applicable Lab Data 04/11/25 04:51 04/11/25 04:51 Labs: Lab Results 04/11/25 Range/Units 04:51 WBC 10.6 (4.8-10.8) X10*3/uL RBC 4.54 (4.20-5.50) X10*6/uL Hgb 10.4 L (12.0-16.0) g/dl Hct 33.6 L (37.0-47.0) % MCV 74.0 L (80.0-98.0) fL MCH 22.9 L (27.0-33.0) pg MCHC 31.0 (31.0-35.0) g/dl RDW 18.3 H (11.0-16.0) % Plt Count 229 (160-400) X10*3/uL MPV 10.4 (9.4-12.3) fL Immature Gran % (Auto) 0.2 (0.0-0.4) % Neut % (Auto) 38.5 L (45-73) % Lymph % (Auto) 50.4 H (20-40) % [place] % (Auto) 6.3 (2-11) % Eos % (Auto) 4.2 H (0-4) % Baso % (Auto) 0.4 (0-2) % Lymph # (Auto) 5.4 H (1.2-4.9) X10*3/uL [place] # (Auto) 0.7 (0.1-1.2) X10*3/uL Eos # (Auto) 0.5 H (0.0-0.4) X10*3/uL Baso # (Auto) 0.0 (0.0-0.2) X10*3/uL Abs Immat Gran (auto) 0.02 (0.00-0.03) X10*3/uL Absolute Neuts (auto) 4.1 (2.0-8.3) x10*3/uL Absolute Nucleated RBC 0.000 (0.0-0.012) X10*3/uL Nucleated RBC % (auto) 0.0 (0.0-0.2) /100WBC Smear Tech's Comments VERIFIED ESR 34 H (0-20) MM/HR Sodium 142 (135-145) mmol/L Potassium 3.8 (3.3-5.1) mmol/L Chloride 109 H (96-108) mmol/L Carbon Dioxide 23 (22-29) mmol/L Anion Gap 14 (12-20) BUN 21 H (9-16) mg/dL Creatinine 0.82 (0.5-1.4) mg/dL Estim Creat Clear Calc 72.9 Estimated GFR > 60 Random Glucose 99 (60-115) mg/dL Calcium 9.5 (8.4-10.2) mg/dL Total Bilirubin 0.2 (0.0-1.0) mg/dL AST 24 (5-31) U/L ALT 18 (0-31) U/L Alkaline Phosphatase 115 (39-117) U/L Total Creatine Kinase 80 (26-140) U/L Total Protein 7.4 (6.5-8.0) g/dL Albumin 4.5 (3.5-5.0) g/dL Influenza Type A (PCR) NEGATIVE (Negative) Influenza Type B (PCR) NEGATIVE (Negative) RSV RNA Qual (PCR) NEGATIVE (Negative) SARS-CoV-2 RNA (RT-PCR) NEGATIVE (Negative) Discharge Plan Discharge Clinical Impression: Myalgia Patient Disposition: Home, Self-Care Instructions: Musculoskeletal Pain (ED) Additional Instructions: You were evaluated for pain throughout your body and all of the joints and muscles. We do not feel you had an acute medical emergency but provided you with medications for pain. Call your primary doctor for follow up Prescriptions: No Action metoprolol succinate 25 mg tablet extended release 24 hr 1 tab PO DAILY lisinopril 40 mg tablet 1 tab PO DAILY acetaminophen 650 mg tablet extended release 2 tab PO Q8H PRN (Reason: pain) albuterol sulfate [Ventolin HFA] 90 mcg/actuation HFA aerosol inhaler 2 puff INHALATION Q4-6H PRN (Reason: wheezing) Tab-A-Iraj Multivitamin w-iron 18-400 mg-mcg tablet 1 tab PO QAM cefuroxime axetil 500 mg tablet 500 mg PO BID Qty: 12 0RF diphenhydramine HCl [Benadryl] 25 mg capsule 50 mg PO TID PRN (Reason: allergic reaction) Qty: 14 0RF diphenhydramine HCl 25 mg capsule 50 mg PO Q6H PRN (Reason: headache, nausea, vomiting) Qty: 20 0RF morphine 15 mg tablet 15 mg PO Q8H PRN (Reason: pain) Qty: 4 0RF Rx Instructions: Partial Fill upon patient request. Excedrin Extra Strength 250-250-65 mg tablet 2 tab PO Q6H PRN (Reason: headache) Qty: 20 0RF metoclopramide HCl [Reglan] 10 mg tablet 10 mg PO Q6H PRN (Reason: nausea and vomiting) Qty: 20 0RF lidocaine [Lidoderm] 5 % adhesive patch,medicated 1 patch topical DAILY Qty: 15 0RF Rx Instructions: leave on most painful area for up to 12 hrs trazodone 100 mg tablet 100 mg PO BEDTIME duloxetine 60 mg capsule,delayed release(DR/EC) 60 mg PO DAILY diphenhydramine HCl 25 mg capsule 50 mg PO Q6H PRN (Reason: headache, nausea, vomiting) Qty: 20 0RF morphine 15 mg tablet 15 mg PO Q6H PRN (Reason: pain) Qty: 10 0RF Rx Instructions: Patient may request partial fill; Partial Fill upon patient request. aspirin 81 mg tablet,delayed release (DR/EC) 81 mg PO DAILY Interventions: ED Discharge Assessment Last Done: 04/11/25 05:46 Discharge Date/Time: 04/11/25 05:47 Print Language: Indonesian
[2025-04-11 04:56] LABS: Hematocrit 33.6 % (37.0-47.0); Hemoglobin 10.4 g/dl (12.0-16.0); Imm Gran Abs Auto 0.02 X10*3/uL (0.00-0.03); Imm Gran Pct Auto 0.2 % (0.0-0.4); Lymphocytes Absolute Auto 5.4 X10*3/uL (1.2-4.9); MANUAL DIFF FLAG SCAN; Mean Corpuscular HGB Conc 31.0 g/dl (31.0-35.0); Mean Corpuscular Hemoglobin 22.9 pg (27.0-33.0); Mean Corpuscular Volume 74.0 fL (80.0-98.0); NRBC Abs Auto 0.000 X10*3/uL (0.0-0.012); NRBC Pct Auto 0.0 /100WBC (0.0-0.2); Platelet Count 229 X10*3/uL (160-400); Red Blood Count 4.54 X10*6/uL (4.20-5.50); SCAN SMEAR FLAG 1; White Blood Count 10.6 X10*3/uL (4.8-10.8)
[2025-04-11 05:12] LABS: Alanine Aminotransferase 18 U/L (0-31); Albumin Level 4.5 g/dL (3.5-5.0); Alkaline Phosphatase 115 U/L (39-117); Anion Gap 14 (12-20); Aspartate Amino Transferase 24 U/L (5-31); Blood Urea Nitrogen 21 mg/dL (9-16); Calcium 9.5 mg/dL (8.4-10.2); Carbon Dioxide 23 mmol/L (22-29); Chloride 109 mmol/L (96-108); Creatinine Clr Calc Pharmacy 72.9; Estimated Glomerular Filt Rate > 60; Potassium 3.8 mmol/L (3.3-5.1); Sodium 142 mmol/L (135-145); Total Protein 7.4 g/dL (6.5-8.0)
[2025-04-11] MEDS: oxyCODONE HCl Immed Release 5 MG TABLET PO (05:13)
--- NOTE | 2025-04-11 05:13 | PC.NURSE ---
Patient medicated per MAR for 20/20 generalized pain.
[2025-04-11 05:34] LABS: Resp Syncy Virus RNA Qual PCR NEGATIVE (Negative); SARS COV2 PCR INHOUSE NEGATIVE (Negative)
[2025-04-11 05:46] VITALS: BP 138/79; PULSE 67; RESP 19; TEMP 36.8; O2SAT 98
== END 2025-04-11 05:47 | disposition home or self-care (01) ==
PROVIDERS: Emergency Provider Emergency Medicine; PCP General Practice
DX: M79.18 Myalgia, other site (principal); G89.29 Other chronic pain; M79.604 Pain in right leg; J45.909 Unspecified asthma, uncomplicated; F17.210 Nicotine dependence, cigarettes, uncomplicated; Z03.818 Encounter for observation for suspected exposure to other biological agents ruled out; Z79.899 Other long term (current) drug therapy
CPT/HCPCS: 80053; 82550; 85025; 85652; 87637; 99283; 99284

== ENCOUNTER → 2025-04-15 19:09 | Outpatient (BNV) | payer MEDICAID, SELFPAY | PROVIDERS: Visit Provider Radiology Body Imaging | DX: R51.9 Headache, unspecified (principal) | CPT/HCPCS: 70553 ==

== ENCOUNTER 2025-04-15 19:11 | Outpatient (REF) | payer MEDICAID, SELFPAY ==
--- NOTE | ~2025-04-15 | MR_ITS ---
EXAMINATION: MR BRAIN WITHOUT AND WITH INTRAVENOUS CONTRAST CLINICAL INFORMATION: Headache, unspecified. COMPARISON: CT head and neck angiography on October 18, 2024 TECHNIQUE: Multiplanar, multisequence MRI of the brain was obtained before and after the intravenous administration of 7.5 cc of gadolinium contrast. FINDINGS: Brain parenchyma: Scattered T2/FLAIR hyperintense foci in the white matter, more numerous on the left side, nonspecific, but likely as manifestation of chronic small vessel ischemic changes. No shift of midline structures. No evidence of acute infarct, parenchymal hemorrhage or mass lesion. Curvilinear enhancement identified in the medial aspect of the inferior right frontal lobe (14:14) most likely represents a developmental venous anomaly; this is only partially visualized on the susceptibility weighted images due to the superimposed artifact. Ventricles/extra-axial spaces: Mild generalized prominence of the ventricles and extra-axial CSF spaces, likely age appropriate. No extra-axial fluid collection. Extracranial structures: Major intracranial flow voids appear intact. Orbits are unremarkable. Minimal mucosal thickening of the paranasal sinuses. Mastoid air cells are clear. MR/MR head/brain wo/w con IMPRESSION: 1. No acute intracranial findings. 2. Developmental venous anomaly in the right frontal lobe. Electronically signed by: Ab Melendez MD 04/16/2025 08:02 AM EDT
== END 2025-04-15 19:12 | disposition home or self-care (01) ==
LOC: HO.MRI 19:11
PROVIDERS: Visit Provider Nurse Practitioner Family
DX: R51.9 Headache, unspecified (principal); N31.9 Neuromuscular dysfunction of bladder, unspecified; C53.9 Malignant neoplasm of cervix uteri, unspecified; I10 Essential (primary) hypertension
CPT/HCPCS: 70553; A9585

== ENCOUNTER 2025-06-21 12:40 | Emergency (ER) | payer MEDICAID, SELFPAY ==
--- NOTE | ~2025-06-21 | CT_ITS ---
CLINICAL HISTORY: lower abdpain. Hx of [facility] CT abdomen and pelvis with contrast Comparison: CT - CT ABDOMEN PELVIS W IV CON - 06/21/25 17:35 EDT Findings: Linear focus of atelectasis or scarring within the right middle lobe. There are a couple of small left kidney cysts. There is a focus of scarring within the upper pole of the right kidney. The liver, spleen, pancreas and adrenal glands are unremarkable. There are no calcified gallstones. No bowel obstruction, pneumoperitoneum, or pneumatosis. Status post hysterectomy. Unremarkable urinary bladder and appendix. The bones are intact. IMPRESSION: No acute abdominal disease. This document has been electronically signed by: Lora Damon MD on 06/21/2025 18:35:34
[2025-06-21 12:53] VITALS: BP 133/79; PULSE 115; RESP 16; TEMP 36.7; O2SAT 98; BMI 29.6
--- NOTE | 2025-06-21 12:57 | ED.GENADULT ---
HPI - General Adult General Chief complaint: Urogenital-Female Stated complaint: lower back pain, vaginal bleeding Time Seen by Provider: 06/21/25 15:17 History of Present Illness ED Provider: Burak BELTRAN narrative: The patient is a 64-year-old woman with a history of cervical cancer for which she had fairly extensive pelvic surgery in 1996. Since the surgery she has been obligated to catheterize herself to drain her bladder. The patient says that about 2 or 3 days ago she started to develop pain across her back and across her lower abdomen that has been getting gradually worse. In addition to these pains today she had an episode of passing some blood from her vagina. This was not a lot of blood. She has not had any menses or vaginal bleeding since her surgery in 1996. This is very surprising. She has felt nauseated. She has felt dizzy. She has not vomited. She has had no change in her bowel habits. No diarrhea or constipation. The patient has some swelling to her right leg which has been chronic since knee replacement surgery 6 months ago. The swelling in her leg is not new. She does not have any complaints today that relate to the leg. She says that the pain that she is experiencing in her back and in her lower abdomen does not lateralize. Related Data Home Medications ?Medication ?Instructions ?Recorded ?Confirmed acetaminophen 650 mg 2 tab PO Q8H PRN pain 10/11/22 05/15/24 tablet,extended release lisinopril 40 mg tablet 1 tab PO DAILY 10/11/22 05/15/24 metoprolol succinate 25 mg 1 tab PO DAILY 10/11/22 05/15/24 tablet,extended release 24 hr duloxetine 60 mg capsule,delayed 60 mg PO DAILY 02/09/24 05/15/24 release trazodone 100 mg tablet 100 mg PO BEDTIME 02/09/24 05/15/24 albuterol sulfate 90 mcg/actuation 2 puff inhalation Q4-6H PRN 05/15/24 05/15/24 aerosol inhaler (Ventolin HFA) wheezing multivitamin-ferrous 1 tab PO QAM 05/15/24 05/15/24 fumarate-folic acid 18 mg-400 mcg tablet (Tab-A-Iraj Multivitamin w-iron) aspirin 81 mg tablet,delayed 81 mg PO DAILY 06/26/25 06/26/25 release rosuvastatin 5 mg tablet 5 mg PO DAILY 04/16/25 Previous Rx's ?Medication ?Instructions ?Recorded cefuroxime axetil 500 mg tablet 500 mg PO BID #12 tabs 05/20/24 diphenhydramine HCl 25 mg capsule 50 mg (2 x 25 mg) PO TID PRN 08/06/24 (Benadryl) allergic reaction #14 caps diphenhydramine HCl 25 mg capsule 50 mg (2 x 25 mg) PO Q6H PRN 10/12/24 headache, nausea, vomiting #20 caps morphine 15 mg immediate release 15 mg PO Q6H PRN pain #10 tabs 10/12/24 tablet nftkzsp-jtgokubeahitq-knmeqjjn 250 2 tab PO Q6H PRN headache #20 tabs 10/30/24 mg-250 mg-65 mg tablet (Excedrin Extra Strength) diphenhydramine HCl 25 mg capsule 50 mg (2 x 25 mg) PO Q6H PRN 10/30/24 headache, nausea, vomiting #20 caps metoclopramide HCl 10 mg tablet 10 mg PO Q6H PRN nausea and 10/30/24 (Reglan) vomiting #20 tabs morphine 15 mg immediate release 15 mg PO Q8H PRN pain #4 tabs 10/30/24 tablet lidocaine 5 % topical patch 1 patch topical DAILY #15 ea 11/08/24 (Lidoderm) acetaminophen 500 mg capsule 1,000 mg (2 x 500 mg) PO Q8H PRN 06/21/25 pain #14 caps Allergies Allergy/AdvReac Type Severity Reaction Status Date / Time buspirone (From BuSpar) Allergy Mild Tongue Verified 06/21/25 12:58 Swelling, dizziness melatonin Allergy Itching Verified 06/21/25 12:58 ibuprofen (From Motrin) AdvReac Mild Rash, HTN Verified 06/21/25 12:58 Review of Systems Review of Systems: Yes all other systems are reviewed and are negative [facility] Past Medical History Medical History (Updated 06/22/25 @ 00:01 by Carol Ann Bowling) Positive ASAEL (antinuclear antibody) Cellulitis of right lower extremity Fibromyalgia Chronic pain syndrome Neurogenic bladder, NOS Chronic kidney disease, stage 3 Hypertension Anemia Depression Cervical cancer Breast pain Back pain with right-sided radiculopathy Asthma Recurrent cellulitis of lower extremity History of cervical cancer Dyspnea on exertion HTN (hypertension) Anemia Migraines Arthritis Fibromyalgia, primary Surgical History History of right knee joint replacement H/O: hysterectomy Social History Social History Household Members: Other Household Members Other:: sister Housing: House Do you presently have visiting nurse or other home services: Yes (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 Patient Tobacco Use Status: Current everyday Tobacco user Tobacco use type: Cigarette Cigarette Packs Per Day: 0.4 Cigarettes Per Day: 5 Years Smoked: 40 e-Cigarette/Vaping Use: Never Used Second Hand Smoke Exposure: No Advance Directives Date on File: 05/19/24 service: No Current occupational status: unemployed Physical Exam ED Vital Signs: Vital Signs - 24 hr 06/21/25 12:53 06/21/25 15:58 06/21/25 18:26 Temperature 98.0 F 98.7 F Pulse Rate 115 H 78 74 Respiratory Rate 16 13 16 Blood Pressure 133/79 149/79 H 135/83 Pulse Oximetry 98 98 99 Oxygen Delivery Method Room Air Room Air Room Air 06/21/25 19:37 Temperature 0 F L Pulse Rate 74 Respiratory Rate 16 Blood Pressure 135/83 Pulse Oximetry 99 Oxygen Delivery Method Room Air BMI result Body Mass Index 29.6 Const Other: The patient is a 64-year-old woman who was awake and alert. She is pleasant and cooperative. She does not appear overtly ill or in obvious distress but she says she is uncomfortable. HENMT Other: The face is symmetrical. ?Mucous membranes moist. Eyes Other: Pupils are round equal, conjunctivae are clear, extraocular movements intact Neck Neck: Yes normal visual inspection and Yes full ROM Resp Effort & Inspection: normal respiratory effort Auscultation: clear to auscultation bilaterally Cardio Rate: regular rate Rhythm: regular rhythm Heart sounds: S1 normal heart sound present and S2 normal heart sound present GI Other: The patient has some tenderness in both lower quadrants. No definite rigidity or rebound. General: Yes no CVA tenderness Back/Spine/Pelvis Back: no CVA tenderness Skin Other: The skin is dry and unremarkable Neuro Other: The patient is awake and alert with a normal mental status. She seems to have intact strength and sensation in her extremities. She seems neurologically intact. Extrem Other: The patient's right leg exhibits some mild generalized swelling compared to the left leg. She has a well-healed surgical scar over the patella of the right leg. No erythema. No tenderness. Course Course Course Narrative: JESSICA: 64 year female history. of cervical cancer and now presently self catheterization presents to ED for back pain radiating to belly pain and now questionable vaginal bleeding blood in panty. Patient denies any fever or chills. Labs ordered Medications Administered Discontinued Medications Generic Name Dose Route Start Last Admin Trade Name Zonia PRN Reason Stop Dose Admin Iohexol 100 ml 06/21/25 17:50 06/21/25 17:50 Iohexol 350 Mg/Ml 100 Ml Infus..Btl IV 06/21/25 17:51 85 ml ONCE ONE Administration Morphine Sulfate 4 mg 06/21/25 16:26 06/21/25 16:44 Morphine Sulfate 4 Mg/Ml Cartridge IVPUSH 06/21/25 16:27 4 mg ONCE ONE Administration Protocol Ondansetron HCl 4 mg 06/21/25 16:26 06/21/25 16:44 Ondansetron Hcl 4 Mg/2 Ml Vial IVPUSH 06/21/25 16:27 4 mg ONCE ONE Administration Oxycodone HCl 5 mg 06/21/25 19:25 06/21/25 19:30 Oxycodone Hcl Immed Release 5 Mg Tablet PO 06/21/25 19:26 5 mg ONCE ONE Administration Medical Decision Making Medical Decision Making MDM Narrative: The patient is a 64-year-old female with a history of cervical cancer. She had a TAHBSO proximally 30 years ago. She has had urinary control problems since the surgery and regularly catheterize herself. She presents with bilateral flank pain in bilateral lower abdominal pains Of 2-3 days' duration. She also had an episode of some vaginal bleeding today and she then came to the emergency room. The patient originally had tachycardia at triage but her heart rate normalized and her vital signs are otherwise unremarkable. She is afebrile. Her physical exam showed some lower abdominal tenderness without definite signs of a suggestion of an acute surgical process. Laboratory testing was unremarkable. Urinalysis did not suggest an infection. She was treated with IV pain medications and IV fluids. A CT scan of the abdomen and pelvis was done which did not show any acute process. I went to see her again after the results of the CAT scan were available. I spoke to the patient about doing a pelvic exam to evaluate the vaginal bleeding. That point the patient has been frustrated with her mouth time in the emergency room and said that she was hungry and just wanted to leave. She did not wish to have a pelvic exam in the emergency room. She said she would follow up with your regular doctor. She did not seem to have ongoing vaginal bleeding while in the emergency room. The patient is regularly prescribed oxycodone. I have sent a prescription for some acetaminophen she may use in addition to her regular oxycodone. Lab Data 06/21/25 13:52 06/21/25 13:52 Labs: Lab Results 06/21/25 Range/Units 13:52 WBC 8.4 (4.8-10.8) X10*3/uL RBC 4.12 L (4.20-5.50) X10*6/uL Hgb 9.9 L (12.0-16.0) g/dl Hct 31.2 L (37.0-47.0) % MCV 75.7 L (80.0-98.0) fL MCH 24.0 L (27.0-33.0) pg MCHC 31.7 (31.0-35.0) g/dl RDW 18.1 H (11.0-16.0) % Plt Count 239 (160-400) X10*3/uL MPV 10.7 (9.4-12.3) fL Immature Gran % (Auto) 0.5 H (0.0-0.4) % Neut % (Auto) 49.3 (45-73) % Lymph % (Auto) 39.3 (20-40) % [place] % (Auto) 6.6 (2-11) % Eos % (Auto) 3.7 (0-4) % Baso % (Auto) 0.6 (0-2) % Lymph # (Auto) 3.3 (1.2-4.9) X10*3/uL [place] # (Auto) 0.6 (0.1-1.2) X10*3/uL Eos # (Auto) 0.3 (0.0-0.4) X10*3/uL Baso # (Auto) 0.1 (0.0-0.2) X10*3/uL Abs Immat Gran (auto) 0.04 H (0.00-0.03) X10*3/uL Absolute Neuts (auto) 4.2 (2.0-8.3) x10*3/uL Absolute Nucleated RBC 0.000 (0.0-0.012) X10*3/uL Nucleated RBC % (auto) 0.0 (0.0-0.2) /100WBC PT 11.3 (10.9-12.4) SEC INR 1.0 (0.9-1.1) APTT 28.7 (26.7-34.1) SEC Sodium 140 (135-145) mmol/L Potassium 4.1 (3.3-5.1) mmol/L Chloride 107 (96-108) mmol/L Carbon Dioxide 25 (22-29) mmol/L Anion Gap 12 (12-20) BUN 19 H (9-16) mg/dL Creatinine 0.70 (0.5-1.4) mg/dL Estim Creat Clear Calc 84.2 Estimated GFR > 60 Random Glucose 99 (60-115) mg/dL Calcium 9.6 (8.4-10.2) mg/dL Total Bilirubin 0.3 (0.0-1.0) mg/dL AST 23 (5-31) U/L ALT 15 (0-31) U/L Alkaline Phosphatase 102 (39-117) U/L Total Protein 7.4 (6.5-8.0) g/dL Albumin 4.3 (3.5-5.0) g/dL Urine Color Yellow Urine Appearance Clear Urine pH 6.0 (5.0-9.0) Ur Specific [place] 1.020 (1.005-1.025) Urine Protein Negative (Neg-Trace) mg/dL Urine Glucose (UA) Negative (Negative) mg/dL Urine Ketones Trace (Negative) mg/dL Urine Blood Negative (Negative) Urine Nitrite Negative (Negative) Ur Leukocyte Esterase Negative (Negative) Discharge Plan Discharge Clinical Impression: Bilateral lower abdominal pain, Low back pain, Vaginal bleeding Patient Disposition: Home, Self-Care Additional Instructions: Your testing in the emergency room today seems very reassuring. There were no alarming findings on your CAT scan. Also your blood work and your urine testing was unremarkable. Please continue to use the oxycodone you have at home as needed for pain. I have sent a prescription for acetaminophen which you may use in addition to oxycodone. Please contact your regular doctor's office in the morning for a follow up appointment soon for further consideration of your symptoms today. Return to the emergency room if significantly worse. Prescriptions: New acetaminophen 500 mg capsule 1,000 mg PO Q8H PRN (Reason: pain) Qty: 14 0RF No Action rosuvastatin 5 mg tablet 5 mg PO DAILY metoprolol succinate 25 mg tablet extended release 24 hr 1 tab PO DAILY lisinopril 40 mg tablet 1 tab PO DAILY acetaminophen 650 mg tablet extended release 2 tab PO Q8H PRN (Reason: pain) albuterol sulfate [Ventolin HFA] 90 mcg/actuation HFA aerosol inhaler 2 puff INHALATION Q4-6H PRN (Reason: wheezing) Tab-A-Iraj Multivitamin w-iron 18-400 mg-mcg tablet 1 tab PO QAM cefuroxime axetil 500 mg tablet 500 mg PO BID Qty: 12 0RF diphenhydramine HCl [Benadryl] 25 mg capsule 50 mg PO TID PRN (Reason: allergic reaction) Qty: 14 0RF diphenhydramine HCl 25 mg capsule 50 mg PO Q6H PRN (Reason: headache, nausea, vomiting) Qty: 20 0RF morphine 15 mg tablet 15 mg PO Q8H PRN (Reason: pain) Qty: 4 0RF Rx Instructions: Partial Fill upon patient request. Excedrin Extra Strength 250-250-65 mg tablet 2 tab PO Q6H PRN (Reason: headache) Qty: 20 0RF metoclopramide HCl [Reglan] 10 mg tablet 10 mg PO Q6H PRN (Reason: nausea and vomiting) Qty: 20 0RF lidocaine [Lidoderm] 5 % adhesive patch,medicated 1 patch topical DAILY Qty: 15 0RF Rx Instructions: leave on most painful area for up to 12 hrs trazodone 100 mg tablet 100 mg PO BEDTIME duloxetine 60 mg capsule,delayed release(DR/EC) 60 mg PO DAILY diphenhydramine HCl 25 mg capsule 50 mg PO Q6H PRN (Reason: headache, nausea, vomiting) Qty: 20 0RF morphine 15 mg tablet 15 mg PO Q6H PRN (Reason: pain) Qty: 10 0RF Rx Instructions: Patient may request partial fill; Partial Fill upon patient request. aspirin 81 mg tablet,delayed release (DR/EC) 81 mg PO DAILY Referrals: Lilly Cowart MD [Primary Care Provider, Internal Medicine] Interventions: ED Discharge Assessment Last Done: 06/21/25 19:37 Discharge Date/Time: 06/21/25 19:38 Print Language: Swedish
[2025-06-21 13:59] LABS: MANUAL DIFF FLAG NO
[2025-06-21 14:01] LABS: Hematocrit 31.2 % (37.0-47.0); Hemoglobin 9.9 g/dl (12.0-16.0); Imm Gran Abs Auto 0.04 X10*3/uL (0.00-0.03); Imm Gran Pct Auto 0.5 % (0.0-0.4); Lymphocytes Absolute Auto 3.3 X10*3/uL (1.2-4.9); Mean Corpuscular HGB Conc 31.7 g/dl (31.0-35.0); Mean Corpuscular Hemoglobin 24.0 pg (27.0-33.0); Mean Corpuscular Volume 75.7 fL (80.0-98.0); NRBC Abs Auto 0.000 X10*3/uL (0.0-0.012); NRBC Pct Auto 0.0 /100WBC (0.0-0.2); Platelet Count 239 X10*3/uL (160-400); Red Blood Count 4.12 X10*6/uL (4.20-5.50); White Blood Count 8.4 X10*3/uL (4.8-10.8)
--- OUTSIDE RECORDS SUMMARY | 2025-06-21 14:06 | XMS_ITS | Encounter Summary ---
Author Organization [employer] Address [address] [facility] [address] [place] [address] Care Team Providers Care Diesel Bus Mechanic Name Role Phone Lilly Cowart MD Primary Care Provider [phone] Marc Dahl RN Unavailable [phone] Karla Harrison Unavailable Marc Dahl RN Unavailable [phone] Karla Harrison Unavailable Reason for Visit * Reason Comments Med Refill Encounter Details Date Type Department Care Team (Late st Contact Info) Description 10/29/2022 Refill [facility] [address] [place] [address] Bouchra Pacheco MD [address] [place] [address] Cellulitis of right lower limb Social History [...] limb documented in this encounter Care Teams Diesel Bus Mechanic Relationship Specialty Start Date End Date Lilly Cowart MD [address] [place] [address] PCP - General Family Medicine 11/16/21 Marc Dahl, RN [address] [place] [address] Registered Nurse Family Medicine 02/26/25 03/13/25 Karla Harrison 02/26/25 03/13/25 Marc Dahl RN [address] [place] [address] Registered Nurse Family Medicine 04/13/25 04/13/25 Karla Harrison 04/13/25 04/13/25 documented as of this encounter
--- OUTSIDE RECORDS SUMMARY | 2025-06-21 14:06 | XMS_ITS | Encounter Summary ---
Author Organization [employer] Address [address] [facility] [address] [place] [address] Care Team Providers Care Vp Respiratory Name Role Phone Lilly Cowart MD Primary Care Provider [phone] Marc Dahl RN Unavailable [phone] Karla Harrison Unavailable Marc Dahl RN Unavailable [phone] Karla Harrison Unavailable Reason for Visit * Reason Comments Med Refill Encounter Details Date Type Department Care Team ([facility] st Contact Info) Description 08/27/2024 Refill [facility] [address] [place] [address] Lilly Cowart MD [address] [place] [address] Social History Tobacco Use Types Packs/Day Years [...] documented as of this encounter Care Teams Vp Respiratory Relationship Specialty Start Date End Date Lilly Cowart MD [address] [place] [phone] PCP - General Family Medicine 11/16/21 Marc Dahl RN [address] [place] [address] Registered Nurse Family Medicine 02/26/25 03/13/25 Karla Harrison 02/26/25 03/13/25 Marc Dahl RN [address] [place] [address] Registered Nurse Family Medicine 04/13/25 04/13/25 Karla Harrison 04/13/25 04/13/25 documented as of this encounter
--- OUTSIDE RECORDS SUMMARY | 2025-06-21 14:06 | XMS_ITS | Clinical Summary ---
Author Organization [employer] Address [address] [facility] [address] [place] [address] Care Team Providers Care Process Improvement Specialist Name Role Phone Lilly Cowart MD Primary Care Provider [phone] Allergies Active Allergy Reactions Criticality Noted Date Comments Buspirone Other reaction(s): tongue tingles, unclear Butalbital 07/28/2013 Other reaction(s): dizziness & headache got worse Ibuprofen Swelling Other reaction(s): Zomig Paroxetine 05/05/2014 Other reaction(s): headache, tongue tingling Zolmitriptan 09/04/2022 Medications Heating Pads pads use for low back pain 03/31/20 22 Active Blood Pressure Monitoring (Omron 3 Series BP Monitor) device USE TO CHECK BLOOD PRESSURE DAILY DIRECTED 01/13/20 22 Active Petrolatum 42 % ointment Apply topically if needed. 03/22/20 23 Active Multiple Vitamins-Minera ls (CertaVite/Anti oxidants) tabletIndicatio ns:Malignant neoplasm of endocervix (CMS/HCC) (HCC) TAKE 1 TABLET BY MOUTH EVERY MORNING 90 tablet 3 11/13/19 24 Active metoprolol succinate XL (Toprol-XL) 25 MG 24 hr tablet TAKE 1 TABLET BY MOUTH EVERY DAY 90 tablet 4 06/20/20 24 Active rosuvastatin (Crestor) 5 MG tabletIndicatio ns:Vertebral artery stenosis, bilateral Take 1 tablet (5 mg) by mouth at bedtime. 90 tablet 3 10/20/19 25 026 Active aspirin (ASPIR) 81 MG EC tabletIndicatio ns:Vertebral artery stenosis, bilateral Take 1 tablet (81 mg) by mouth Once per day. 90 tablet 3 10/20/19 25 026 Active mineral oil-hydrophil petrolat ointment Topical OintmentIndicat ions:Cellulitis of right lower limb APPLY TOPICALLY NEEDED FOR DRY SKIN 454 g 3 11/14/19 25 Active acetaminophen (Tylenol 8 Hour) 650 MG ER tabletIndicatio ns:Other chronic pain TAKE 2 TABLETS EVERY 8 HOURS NEEDED FOR PAIN, DO NOT BREAK, CRUSH, DISSOLVE OR CHEW 100 tablet 3 01/27/20 25 Active albuterol (Ventolin HFA) 108 (90 Base) MCG/ACT inhalerIndicati ons:Moderate persistent asthma without complication INHALE 2 PUFFS BY MOUTH EVERY 4 TO 6 HOURS NEEDED FOR WHEEZING OR SHORTNESS OF BREATH 18 g 11 01/27/20 25 Active melatonin 5 MG tablet TAKE 2 TABLETS BY MOUTH EVERY DAY AT BEDTIME NEEDED FOR SLEEP 180 tablet 3 02/12/20 25 Active Banophen 25 MG capsule TAKE 2 CAPSULES BY MOUTH EVERY 6 HOURS NEEDED FOR HEADACHE, NAUSEA, VOMITING 10/30/19 25 Active amoxicillin (Amoxil) 500 MG capsuleIndicati ons:Pain and swelling of lower extremity, right Take 1,000 mg by mouth 3 times daily. Active clotrimazole (Lotrimin) 1 % creamIndication s:Tinea pedis of both feet apply topically to the affected area(s) twice daily 04/16/20 25 Active nicotine (Nicoderm CQ) 21 MG/24HR patchIndication s:Smoker Apply 1 patch on the skin (one) time each day at the same time x 6 weeks. 42 patch 04/22/20 25 Active DULoxetine (Cymbalta) [address] capsuleIndicati ons:Chronic pain of right knee Take 1 capsule (60 mg) by mouth Once per day. Do not crush or chew. 90 capsule 3 04/22/20 25 Active lisinopril 40 MG tablet TAKE 1 TABLET BY MOUTH EVERY DAY 90 tablet 3 04/24/20 25 Active oxyCODONE (Roxicodone) 10 MG immediate release tabletIndicatio ns:Chronic pain of right knee Take 1 tablet (10 mg) by mouth every 12 (twelve) hours if needed for severe pain for up to 28 days. 56 tablet 06/08/20 25 025 Active oxyCODONE (Roxicodone) 10 MG immediate release tabletIndicatio ns:Chronic pain of right knee Take 1 tablet (10 mg) by mouth every 12 (twelve) hours if needed for severe pain for up to 28 days. 56 tablet 04/22/20 25 025 Discontinued(Re order (will not trigger notification to Pharmacy)) Active Problems Problem Noted Date Diagnosed Date Long-term current use of opiate analgesic 2024 Hyperlipidemia 02/13/2025 Tinea pedis of both feet 02/13/2025 Vertebral artery stenosis, bilateral 10/20/2024 Overview (10/20/2024): [place] [facility] [place] 10/18/24 Impaired mobility 01/17/2023 Assessment & Plan (02/13/2025 8:11 AM EDT): Scooter evaluation ordered 02/13/25 Assessment & Plan (01/17/2023 8:52 AM EDT): Walk with walker Grab bars and shower ordered for safety and mobility assistance in the home Pain and swelling of lower extremity, right 10/19 Assessment & Plan (02/13/2025 8:12 AM EDT): Will prescribe 30 day supply of oxycodone for now Recommend continued PT exercises Finish oral abx Followup with ortho in March 2025 Assessment & Plan (07/06/2024 3:12 PM EDT): Will refer to ID to discuss need for prophy, place on PCN for now, which is that previous course that they recommended Will also have patient see [place] [facility] [place] washout of R TKA arthrosis? Oxycodone 5mg for nighttime x 30 days, use sparingly Assessment & Plan (11/09/2022 11:47 AM EST): Pt admitted to [facility] recently as a result. Work up did [...] of right knee 11/09/2022 Assessment & Plan (04/27/2025 8:16 AM EDT): Will increase oxycodone from 5mg BID to 10mg BID monitor for increased mobility and increased function Assessment & Plan (11/09/2022 11:49 AM EST): [...] a patient with Hx of cervical malignancy Recurrent cellulitis of lower extremity 09/26/19 Assessment & Plan (01/17/2023 8:53 AM EDT): [...] long-term pain mgmt Malignant neoplasm of cervix (CMS/HCC) Overview (09/13/2022): status post hysterectomy 1995 Assessment & Plan (12/31/2023 9:03 AM EDT): Managed surgically, no further followup needed as she is more than 20 years after her surgery Primary osteoarthritis of left knee 09/13/2022 Asthma 07/30/2015 Assessment & Plan (12/31/2023 9:04 AM EDT): CAMILA osbaldo Atopic conjunctivitis 07/30/2015 Constipation 07/30/2015 Depression 07/30/2015 [...] Encounters Date Type Department Care Team Description 06/21/2025 Orders Only GENERIC EXTERNAL DATA DEPARTMENT Provider, Generic External Data 06/18/[address] [address] Lilly Cowart MD Dec Recall 06/08/2025 Refill [facility] [address] [place] [address] Lilly Cowart MD Chronic pain of right knee 06/01/[address] [address] Hazel Leyva RN NCNS BURNER OPERATOR Initial X2 05/05/[address] [address] Hazel Leyva RN NCNS BURNER OPERATOR Initial appt X1 04/28/[address] [address] Lilly Cowart MD Durable Medical Equipment (L&C FORM: Catheters) 04/23/2025 Refill [facility] [address] [place], [place] [phone] Lilly Cowart MD Other chronic pain 04/23/[address] [address] Hazel Leyva RN Error (VOID this visit) 04/22/2025 3:30 PM EDT Office Visit [address] [address] Lilly Cowart MD Chronic pain of right knee (Primary Dx); Migraine without aura, not refractory; Pain and swelling of lower extremity, right; Right lower quadrant abdominal pain; Smoker; Tinea pedis of both feet 04/22/2025 Travel 04/21/2025 Refill [facility] [address] [place] [address] Kae Garza ANP Recurrent cellulitis of lower extremity 04/16/[address] [address] Hazel Leyva, HENOK BURNER OPERATOR Tier 04/16/[address] [address] Lilly Cowart MD ED f/u 04/16/2025 Refill [facility] [address] [place] [address] Lilly Cowart MD Pain and swelling of lower extremity, right (Primary Dx) 04/13/[address] [address] Lilly Cowart MD Referral 04/13/2025 Patient Outreach [address] [address] Lilly Cowart MD Care Coordination ([facility] Karla Harrison telephone call outreach) 04/13/2025 Patient Outreach [address] [address] Lilly Cowart MD Care Coordination ([facility] Karla Harrison chart review ) 04/13/2025 Patient Outreach [address] [address] Lilly Cowart MD Care Coordination ([facility]- chart review) 04/13/2025 Patient Outreach [address] [address] Lilly Cowart MD 04/07/[address] [address] Lilly Cowart MD requesting call back 04/06/2025 Orders Only [address] [address] Lilly Cowart MD 03/24/2025 Telephone [facility] [address] [place] [address] Lilly Cowart MD [facility] from Last 3 Months Immunizations Immunization Administration Dates Next Due DTaP 06/30/2008 Influenza [...] Sign Reading Time Taken Comments Blood Pressure 138/68 04/22/2025 3:26 PM EDT Pulse 66 04/22/2025 3:26 PM EDT Temperature 36.3 C (97.3 F) 04/22/2025 3:26 PM EDT Respiratory Rate 20 04/22/2025 3:26 PM EDT Oxygen Saturation 99% 04/22/2025 3:26 PM EDT Inhaled Oxygen Concentration - - Weight 77.9 kg (171 lb 12.8 oz) 04/22/2025 3:26 PM EDT Height 162.6 cm (5' 4 ) 04/22/2025 3:26 PM EDT Body Mass Index 29.49 04/22/2025 3:26 PM EDT Plan of Treatment Health Maintenance Due Date Last Done Comments CT Colonography 1962 Colonoscopy 1962 Colorectal Cancer Screening 1962 FIT DNA/Cologuard 1962 FIT 1962 FOBT 1962 HIV Screening 1962 Lipid Panel 1962 Sigmoidoscopy 1962 Disability Screening 1962 Alcohol/Substance Use Screening 1974 Hepatitis C Screening 1980 Pap Smear 1983 HPV/Cotest 1992 Zoster Vaccines (1 of 2) 2012 Pneumococcal Vaccine: 50+ Years (2 of 2 - PCV) 10/01/2014 10/01/2013, 10/30/2012 RSV Patients and Patients Aged 60 years or older (1 - Risk 60-74 years 1-dose series) 2022 SDOH Screening 12/26/2024 12/27/2023 Mammogram 01/21/2025 01/22/2024 COVID-19 Vaccine (3 - season) 2025 09/30/2021, 09/08/2021 Influenza Vaccine (#1) 2025 7, 12/03/2016, 07/13/2016, Additional history exists Depression Monitoring 08/16/2025 02/13/2025, 025 Tobacco Screening 04/22/2026 04/22/2025 DTaP/Tdap/Td Vaccines (5 - Td or Tdap) [...] age to complete this topic Meningococcal B Vaccine Aged Out No l onger eligible based on patient's age to complete [...] Procedure Name Priority Date/Time Associated Diagnosis Comments CBC WITH AUTO DIFFERENTIAL Routine 06/21/2025 1:52 PM EDT BI MAMMOGRAM SCREENING TOMOSYNTHESIS BILATERAL Routine 01/22/2024 2:21 PM EDT Encounter for screening mammogram for malignant neoplasm of breast from Last 3 Months or Most Recently Relevant to Health Maintenance Results * (ABNORMAL) CBC auto differential (06/21/2025 1:52 PM EDT) White Blood Count 8.4 4.8 - 10.8 X10*3/uL [facility] Red Blood Count 4.12(L) 4.20 - 5.50 X10*6/uL [facility] Hemoglobin 9.9(L) 12.0 - 16.0 g/dl [facility] Hematocrit 31.2(L) 37.0 - 47.0 % [facility] Mean Corpuscular Volume 75.7(L) 80.0 - 98.0 fL [facility] Mean Corpuscular Hemoglobin 24.0(L) 27.0 - 33.0 pg [facility] Mean Corpuscular HGB Conc 31.7 31.0 - 35.0 g/dl [facility] Red Cell Distribution Width 18.1(H) 11.0 - 16.0 % [facility] Platelet Count 239 160 - 400 X10*3/uL [facility] Mean Platelet Volume 10.7 9.4 - 12.3 fL [facility] Neutrophils Percent Auto 49.3 45 - 73 % [facility] Imm Gran Pct Auto 0.5(H) 0.0 - 0.4 % [facility] Lymphocytes Percent Auto 39.3 20 - 40 % [facility] Monocytes Percent Auto 6.6 2 - 11 % [facility] Eosinophils Percent Auto 3.7 0 - 4 % [facility] Basophils Percent Auto 0.6 0 - 2 % [facility] NRBC Pct Auto 0.0 0.0 - 0.2 /100WBC [facility] Neutrophils Absolute Auto 4.2 2.0 - 8.3 x10*3/uL [facility] Imm Gran Abs Auto 0.04(H) 0.00 - 0.03 X10*3/uL [facility] Lymphocytes Absolute Auto 3.3 1.2 - 4.9 X10*3/uL [facility] Monocytes Absolute Auto 0.6 0.1 - 1.2 X10*3/uL [facility] Eosinophils Absolute Auto 0.3 0.0 - 0.4 X10*3/uL [facility] Basophils Absolute Auto 0.1 0.0 - 0.2 X10*3/uL [facility] NRBC Abs Auto 0.000 0.0 - 0.012 X10*3/uL [facility] 06/21/2025 1:52 PM EDT 06/21/2025 1:58 PM EDT us Generic External Data Provider LAB BLOOD ORDERAB LES Final Result [facility] [address] [place] [address] [phone] * BI Mammogram Screening Tomosynthesis Bilateral (01/22/2024 2:21 PM EDT) Anatomical Region Laterality Modality Breast Bilateral Mammography 01/22/2024 2:21 PM EDT Narrative 02/21/2024 1:33 PM EDT [facility] [address] [place] [address] Mammography Report Signed Patient: Nadege Lee MR#: [id number] : 1960 Acct:[id number] Age/Sex: 63 / F ADM Date: 01/22/24 Loc: HO.MAMMO Attending Dr: Lilly Cowart MD Ordering Physician: Lilly Cowart Results: 1Negative Date of Service: 01/22/24 Follow Up: 1 Year From Orig ina Mammogram Procedure(s): MM tomosynthesis screening BI Accession Number(s): [id number] cc: Lilly Cowart EXAMINATION: MM SCREENING DIGITAL [...] in OV> 02/21/24 1329 DD/ 1421 TD/TT: Cob Sawyer: Procedure Note Donotuseinterpreter, Image - 02/21/2024 [facility] [address] [place] [address] Mammography Report Signed Patient: Nadege Lee#: [id number] : 1960cct:[id number] Age/Sex: 63 / FADM Date: 01/22/24 Loc: [facility] Attending Dr: Lilly Cowart MD Ordering Physician: Devon Cowartults: 1Negative Date of Service: 01/22/24Follow Up: 1 Year From Orig inal Mammogram Procedure(s): MM tomosynthesis screening BI Accession Number(s): [id number] cc: Lilly Cowart EXAMINATION: MM SCREENING DIGITAL [...] in OV> 02/21/24 1329 DD/ 1421 TD/TT: Cob Sawyer: Lilly Cowart MD IMG BI PROCEDURES Final Result from Last 3 Months or Most Recently Relevant to Health Maintenance Insurance [employer] Care Teams Process Improvement Specialist Relationship Specialty Start Date End Date Lilly Cowart MD [address] [place] [address] PCP - General Family Medicine 11/16/21
--- OUTSIDE RECORDS SUMMARY | 2025-06-21 14:06 | XMS_ITS | Encounter Summary ---
Author Organization [employer] Address [address] [facility] [address] [place] [address] Care Team Providers Care Vinyl Installer Name Role Phone Lilly Cowart MD Primary Care Provider [phone] Marc Dahl RN Unavailable [phone] Karla Harrison Unavailable Marc Dahl RN Unavailable [phone] Karla Harrison Unavailable Reason for Visit * Reason Onset Date Comments Hospital Follow-up 05/17/2023 Encounter Details Date Type Department Care Team (Late st Contact Info) Description 05/17/2023 Telephone [facility] [address] [place], [place] [phone] Lilly Cowart MD [address] [place], [place] [phone] Hospital Follow-up Social History Tobacco Use Types [...] Miscellaneous Notes * Telephone Encounter - Leigh Tim - 05/17/2023 2:23 PM EDT Tc from pt calling to advise PCP of a HDF. [place] [facility] [place] and discharged on 05/10 for leg infection, fever, and low blood pressure. Was advised will forward to team nurses for f/u. Please contact pt at [phone] documented in this encounter Plan of Treatment Not on file documented as of this encounter Visit Diagnoses Not on filedocumented in this encounter Care Teams Vinyl Installer Relationship Specialty Start Date End Date Lilly Cowart MD [address] [place] [phone] PCP - General Family Medicine 11/16/21 Marc Dahl RN [address] [place] [address] Registered Nurse Family Medicine 02/26/25 03/13/25 Karal Harrison 02/26/25 03/13/25 Marc Dahl RN [address] [place] [address] Registered Nurse Family Medicine 04/13/25 04/13/25 Karla Harrison 04/13/25 04/13/25 documented as of this encounter
--- OUTSIDE RECORDS SUMMARY | 2025-06-21 14:06 | XMS_ITS | Clinical Summary ---
Author Organization [facility] Address [address] [place] [address] Care Team Providers Care Radar Tester Name Role Phone Unavailable Primary Care Provider [...] Last Done Comments Breast Cancer Screening 1962 Colorectal Cancer Screening: Colonoscopy 1962 DTaP,Tdap,and Td Vaccines (1 - Tdap) 1981 Cervical Cancer Screening: P ap Smear 1983 Pneumococcal Vaccine: 50+ Ye ars (1 of 1 - PCV) 2012 Zoster Vaccines (1 of 2) 2012 HIV Screening 10/16/2023 Hepatitis C Screening 10/16/2023 Social Influencers of Health Screening 10/16/2023 Depression Screening 09/17/2024 COVID-19 Vaccine (1 - 2023-2 5 season) 2025 Influenza Vaccine (#1) 2025 RSV Immunization Adult Patie nts (1 - 1-dose 75+ series) 2037 HIB [...]
--- OUTSIDE RECORDS SUMMARY | 2025-06-21 14:06 | XMS_ITS | Encounter Summary ---
Author Organization [employer] Address [address] [facility] [address] [place] [address] Care Team Providers Care Signals Collection Technician Name Role Phone Lilly Cowart MD Primary Care Provider [phone] Marc Dahl RN Unavailable [phone] Karla Harrison Unavailable Marc Dahl RN Unavailable [phone] Karla Harrison Unavailable Reason for Visit * Reason Onset Date Comments Durable Medical Equipment 01/11/2024 Encounter Details Date Type Department Care Team (Late st Contact Info) Description 01/11/2024 Telephone [facility] [address] [place] [address] Lilly Cowart MD [address] [place], [place] [phone] Durable Medical Equipment Social History Tobacco Use [...] documented as of this encounter Care Teams Signals Collection Technician Relationship Specialty Start Date End Date Lilly Cowart MD [address] [place] [phone] PCP - General Family Medicine 11/16/21 Marc Dahl RN [address] [place] [address] Registered Nurse Family Medicine 02/26/25 03/13/25 Karla Harrison 02/26/25 03/13/25 Marc Dahl RN [address] [place] [address] Registered Nurse Family Medicine 04/13/25 04/13/25 Karla Harrison 04/13/25 04/13/25 documented as of this encounter
--- OUTSIDE RECORDS SUMMARY | 2025-06-21 14:06 | XMS_ITS | Encounter Summary ---
Author Organization [employer] Address [address] [facility] [address] [place] [address] Care Team Providers Care Return To Factory Clerk Name Role Phone Lilly Cowart MD Primary Care Provider [phone] Marc Dahl RN Unavailable [phone] Karla Harrison Unavailable Marc Dahl RN Unavailable [phone] Karla Harrison Unavailable Encounter Details Date Type Department Care Team (Late st Contact Info) Description 08/30/2022 Orders Only [facility] [address], [place] [phone] Lindsey Salcedo LPN Social History Tobacco Use [...] (12/07/2022 11:34 AM EDT) Color Urine Yellow [facility] Appearance Urine Clear [facility] PH 6.5 5.0 - 9.0 [facility] Glucose Urine UA Negative Negative mg/dL [facility] Urine Blood Negative Negative [facility] Specific [place] - Urine >=1.030(H) 1.005 - 1.025 [facility] Urine Protein Negative Neg-Trace mg/dL [facility] Urine Ketones Negative Negative mg/dL [facility] Nitrite Urine Negative Negative [facility] Leukocyte Esterase Urine Negative Negative [facility] RBC Urine 0-2 0 - 2 /HPF [facility] Urine WBC 0-5 0 - 5 /HPF [facility] Urine Squamous Epithelial Cell 0-2 0 - 2 /HPF [facility] Urine Bacteria None Seen None Seen [facility] Hyaline Casts, Urine 0-2 0 - 2 /LPF [facility] 12/07/2022 11:3 4 AM EDT 12/07/2022 11:37 AM EDT Narrative [facility] - 12/07/2022 11:45 AM EDT 1131Urine, Catheterized us [facility] External Provider LAB URI NE ORDERABLES Final Result [facility] [address] [place] [address] [phone] * (ABNORMAL) Comprehensive Metabolic Panel, Fasting (12/07/2022 9:57 AM EDT) Sodium 140 135 - 145 mmol/L [facility] Potassium 4.0 3.3 - 5.1 mmol/L [facility] Chloride 108 96 - 108 mmol/L [facility] Carbon Dioxide 21(L) 22 - 29 mmol/L [facility] Anion Gap 15 12 - 20 [facility] Urea Nitrogen (BUN) 14 9 - 16 mg/dL [facility] Creatinine, Serum 0.79 0.5 - 1.4 mg/dL [facility] Creatinine Clr Calc Pharmacy 76.2 [facility] Comment:Provided height and weight: 162.56 cm,77.564 kg.eGFR (calculated from the MDRD study equation) and eCrCl(calculated from the Cockcroft-Gault equation) are based ondifferent parameters and may not yield comparable results.If eCrCl result is absurd, please check patient'sheight/weight. Estimated Glomerular Filt Rate >60 [facility] Comment:NOTE: For -Am erican individuals, multiply the result by 1.210.Chronic Kidney Disease: Estimated GFR < 60 mL/min/1.90o5Wsfumz Kidney Disease: Estimated GFR < 15 mL/min/1.73m2 Glucose Fasting 88 60 - 99 mg/dL [facility] Calcium 9.7 8.4 - 10.2 mg/dL [facility] Bilirubin, Total 0.4 0.0 - 1.0 mg/dL [facility] Aspartate Amino Transferase 17 5 - 31 U/L [facility] Alanine Aminotransferase 17 0 - 31 U/L [facility] Total Protein 7.3 6.5 - 8.0 g/dL [facility] Albumin Level 4.2 3.5 - 5.0 g/dL [facility] Alkaline Phosphatase 92 39 - 117 U/L [facility] 12/07/2022 9:57 AM EDT 12/07/2022 10:02 AM EDT us [facility] External Provider LAB BLO OD ORDERABLES Final Result [facility] [address] [place] [address] [phone] * (ABNORMAL) CBC auto differential (12/07/2022 9:57 AM EDT) White Blood Count 8.3 4.8 - 10.8 X10*3/uL [facility] Red Blood Count 4.29 4.20 - 5.50 X10*6/uL [facility] Hemoglobin 10.2(L) 12.0 - 16.0 g/dl [facility] Hematocrit 33.5(L) 37.0 - 47.0 % [facility] Mean Corpuscular Volume 78.1(L) 80.0 - 98.0 fL [facility] Mean Corpuscular Hemoglobin 23.8(L) 27.0 - 33.0 pg [facility] Mean Corpuscular HGB Conc 30.4(L) 31.0 - 35.0 g/dl [facility] Red Cell Distribution Width 17.2(H) 11.0 - 16.0 % [facility] Platelet Count 284 160 - 400 X10*3/uL [facility] Mean Platelet Volume 10.3 9.4 - 12.3 fL [facility] Neutrophils Percent Auto 45.6 45 - 73 % [facility] Imm Gran Pct Auto 0.2 0.0 - 0.4 % [facility] Lymphocytes Percent Auto 42.9(H) 20 - 40 % [facility] Monocytes Percent Auto 7.2 2 - 11 % [facility] Eosinophils Percent Auto 3.6 0 - 4 % [facility] Basophils Percent Auto 0.5 0 - 2 % [facility] NRBC Pct Auto 0.0 0.0 - 0.2 /100WBC [facility] Neutrophils Absolute Auto 3.8 2.0 - 8.3 x10*3/uL [facility] Imm Gran Abs Auto 0.02 0.00 - 0.03 X10*3/uL [facility] Lymphocytes Absolute Auto 3.6 1.2 - 4.9 X10*3/uL [facility] Monocytes Absolute Auto 0.6 0.1 - 1.2 X10*3/uL [facility] Eosinophils Absolute Auto 0.3 0.0 - 0.4 X10*3/uL [facility] Basophils Absolute Auto 0.0 0.0 - 0.2 X10*3/uL [facility] NRBC Abs Auto 0.000 0.0 - 0.012 X10*3/uL [facility] 12/07/2022 9:57 AM EDT 12/07/2022 10:02 AM EDT us [facility] External Provider LAB BLO OD ORDERABLES Final Result [facility] [address] [place] [address] [phone] * (ABNORMAL) Comprehensive Metabolic Panel (10/23/2022 10:53 AM EST) Sodium 139 135 - 145 mmol/L [facility] Potassium 4.3 3.3 - 5.1 mmol/L [facility] Chloride 108 96 - 108 mmol/L [facility] Carbon Dioxide 23 22 - 29 mmol/L [facility] Anion Gap 12 12 - 20 [facility] Urea Nitrogen (BUN) 18(H) 9 - 16 mg/dL [facility] Creatinine, Serum 0.87 0.5 - 1.4 mg/dL [facility] Creatinine Clr Calc Pharmacy 67.1 [facility] Comment:Provided height and weight: 162.56 cm,72.575 kg.eGFR (calculated from the MDRD study equation) and eCrCl(calculated from the Cockcroft-Gault equation) are based ondifferent parameters and may not yield comparable results.If eCrCl result is absurd, please check patient'sheight/weight. Estimated Glomerular Filt Rate >60 [facility] Comment:NOTE: For -Am erican individuals, multiply the result by 1.210.Chronic Kidney Disease: Estimated GFR < 60 mL/min/1.77a0Knvpfe Kidney Disease: Estimated GFR < 15 mL/min/1.73m2 Glucose 82 60 - 115 mg/dL [facility] Calcium 9.5 8.4 - 10.2 mg/dL [facility] Bilirubin, Total 0.3 0.0 - 1.0 mg/dL [facility] Aspartate Amino Transferase 17 5 - 31 U/L [facility] Alanine Aminotransferase 23 0 - 31 U/L [facility] Total Protein 7.1 6.5 - 8.0 g/dL [facility] Albumin Level 4.1 3.5 - 5.0 g/dL [facility] Alkaline Phosphatase 104 39 - 117 U/L [facility] 10/23/2022 10:5 3 AM EST 10/23/2022 10:56 AM EST [facility] External Provider LAB BLO OD ORDERABLES Final Result [facility] [address] [place] [phone] * (ABNORMAL) CBC auto differential (10/23/2022 10:53 AM EST) White Blood Count 9.5 4.8 - 10.8 X10*3/uL [facility] Red Blood Count 4.38 4.20 - 5.50 X10*6/uL [facility] Hemoglobin 10.5(L) 12.0 - 16.0 g/dl [facility] Hematocrit 34.5(L) 37.0 - 47.0 % [facility] Mean Corpuscular Volume 78.8(L) 80.0 - 98.0 fL [facility] Mean Corpuscular Hemoglobin 24.0(L) 27.0 - 33.0 pg [facility] Mean Corpuscular HGB Conc 30.4(L) 31.0 - 35.0 g/dl [facility] Red Cell Distribution Width 17.2(H) 11.0 - 16.0 % [facility] Platelet Count 319 160 - 400 X10*3/uL [facility] Mean Platelet Volume 10.6 9.4 - 12.3 fL [facility] Neutrophils Percent Auto 49.3 45 - 73 % [facility] Imm Gran Pct Auto 0.3 0.0 - 0.4 % [facility] Lymphocytes Percent Auto 38.4 20 - 40 % [facility] Monocytes Percent Auto 7.9 2 - 11 % [facility] Eosinophils Percent Auto 3.4 0 - 4 % [facility] Basophils Percent Auto 0.7 0 - 2 % [facility] NRBC Pct Auto 0.0 0.0 - 0.2 /100WBC [facility] Neutrophils Absolute Auto 4.7 2.0 - 8.3 x10*3/uL [facility] Imm Gran Abs Auto 0.03 0.00 - 0.03 X10*3/uL [facility] Lymphocytes Absolute Auto 3.6 1.2 - 4.9 X10*3/uL [facility] Monocytes Absolute Auto 0.8 0.1 - 1.2 X10*3/uL [facility] Eosinophils Absolute Auto 0.3 0.0 - 0.4 X10*3/uL [facility] Basophils Absolute Auto 0.1 0.0 - 0.2 X10*3/uL [facility] NRBC Abs Auto 0.000 0.0 - 0.012 X10*3/uL [facility] 10/23/2022 10:5 3 AM EST 10/23/2022 10:56 AM EST us [facility] External Provider LAB BLO OD ORDERABLES Final Result [facility] [address] [place] [address] [phone] * SARS-CoV-2 RNA, Influenza A/B, and RSV RNA, Ql NAAT (10/11/2022 11:39 AM EST) Influenza A PCR NEGATIVE Negative [facility] Influenza B PCR NEGATIVE Negative [facility] Resp Syncy Virus RNA Qual PCR NEGATIVE Negative [facility] SARS COV2 PCR NEGATIVE Negative [facility] SARS/Flu/RSV Note See Note [facility] Comment:All test results mus t [...] use by authorized laboratories.Testing performed on the [employer] GeneXpert utilizingreal-time RT-PCR.All SARS CoV2 and positive influenza A/B results arereported to [facility]. 10/11/2022 11:3 9 AM EST 10/11/2022 11:44 AM EST [facility] Exter nal Provider LAB MICROBIOLOGY - GENERAL ORDERABLES Final Result Performing Organization Address [facility] Co de Phone Number [facility] [address] [place] [phone] * Lactic Acid (10/11/2022 11:39 AM EST) Lactic Acid 1.0 0.5 - 2.0 mmol/L [facility] 10/11/2022 11:3 9 AM EST 10/11/2022 11:44 AM EST [facility] External Provider LAB BLO OD ORDERABLES Final Result [facility] [address] [place] [address] [phone] * Magnesium (10/11/2022 11:38 AM EST) Magnesium 1.8 1.6 - 2.6 mg/dL [facility] 10/11/2022 11:3 8 AM EST 10/11/2022 11:44 AM EST [facility] External Provider LAB BLO OD ORDERABLES Final Result Performing Organization Address [facility] Co de Phone Number [facility] [address] [place] [address] [phone] * Comprehensive Metabolic Panel (10/11/2022 11:38 AM EST) Sodium 140 135 - 145 mmol/L [facility] Potassium 3.9 3.3 - 5.1 mmol/L [facility] Chloride 108 96 - 108 mmol/L [facility] Carbon Dioxide 22 22 - 29 mmol/L [facility] Anion Gap 14 12 - 20 [facility] Urea Nitrogen (BUN) 16 9 - 16 mg/dL [facility] Creatinine, Serum 0.70 0.5 - 1.4 mg/dL [facility] Creatinine Clr Calc Pharmacy 83.4 [facility] Comment:Provided height and weight: 162.56 cm,72.575 kg.eGFR (calculated from the MDRD study equation) and eCrCl(calculated from the Cockcroft-Gault equation) are based ondifferent parameters and may not yield comparable results.If eCrCl result is absurd, please check patient'sheight/weight. Estimated Glomerular Filt Rate >60 [facility] Comment:NOTE: For -Am erican individuals, multiply the result by 1.210.Chronic Kidney Disease: Estimated GFR < 60 mL/min/1.60i0Zusicx Kidney Disease: Estimated GFR < 15 mL/min/1.73m2 Glucose 86 60 - 115 mg/dL [facility] Calcium 9.5 8.4 - 10.2 mg/dL [facility] Bilirubin, Total 0.3 0.0 - 1.0 mg/dL [facility] Aspartate Amino Transferase 20 5 - 31 U/L [facility] Alanine Aminotransferase 19 0 - 31 U/L [facility] Total Protein 7.3 6.5 - 8.0 g/dL [facility] Albumin Level 4.1 3.5 - 5.0 g/dL [facility] Alkaline Phosphatase 114 39 - 117 U/L [facility] 10/11/2022 11:3 8 AM EST 10/11/2022 11:44 AM EST [facility] External Provider LAB BLO OD ORDERABLES Final Result Performing Organization Address [facility] Co de Phone Number [facility] [address] [place] [phone] * Prothrombin Time-INR (10/11/2022 11:38 AM EST) Prothrombin Time 11.5 10.0 - 13.1 SEC [facility] INTERNATIONAL NORM RATIO 1.0 0.9 - 1.1 [facility] Comment:INTERNATIONAL NORMAL IZED RATIO (INR) [...] 8 AM EST 10/11/2022 11:44 AM EST [facility] External Provider LAB BLO OD ORDERABLES Final Result Performing Organization Address [facility] Co de Phone Number [facility] [address] [place] [phone] * (ABNORMAL) CBC auto differential (10/11/2022 11:38 AM EST) White Blood Count 12.0(H) 4.8 - 10.8 X10*3/uL [facility] Red Blood Count 4.60 4.20 - 5.50 X10*6/uL [facility] Hemoglobin 11.0(L) 12.0 - 16.0 g/dl [facility] Hematocrit 36.0(L) 37.0 - 47.0 % [facility] Mean Corpuscular Volume 78.3(L) 80.0 - 98.0 fL [facility] Mean Corpuscular Hemoglobin 23.9(L) 27.0 - 33.0 pg [facility] Mean Corpuscular HGB Conc 30.6(L) 31.0 - 35.0 g/dl [facility] Red Cell Distribution Width 16.9(H) 11.0 - 16.0 % [facility] Platelet Count 246 160 - 400 X10*3/uL [facility] Mean Platelet Volume 10.3 9.4 - 12.3 fL [facility] Neutrophils Percent Auto 69.8 45 - 73 % [facility] Imm Gran Pct Auto 0.3 0.0 - 0.4 % [facility] Lymphocytes Percent Auto 21.8 20 - 40 % [facility] Monocytes Percent Auto 5.8 2 - 11 % [facility] Eosinophils Percent Auto 2.0 0 - 4 % [facility] Basophils Percent Auto 0.3 0 - 2 % [facility] NRBC Pct Auto 0.0 0.0 - 0.2 /100WBC [facility] Neutrophils Absolute Auto 8.4(H) 2.0 - 8.3 x10*3/uL [facility] Imm Gran Abs Auto 0.04(H) 0.00 - 0.03 X10*3/uL [facility] Lymphocytes Absolute Auto 2.6 1.2 - 4.9 X10*3/uL [facility] Monocytes Absolute Auto 0.7 0.1 - 1.2 X10*3/uL [facility] Eosinophils Absolute Auto 0.2 0.0 - 0.4 X10*3/uL [facility] Basophils Absolute Auto 0.0 0.0 - 0.2 X10*3/uL [facility] NRBC Abs Auto 0.000 0.0 - 0.012 X10*3/uL [facility] 10/11/2022 11:3 8 AM EST 10/11/2022 11:44 AM EST us [facility] External Provider LAB BLO OD ORDERABLES Final Result [facility] [address] [place] [phone] documented in this encounter Visit Diagnoses Not on filedocumented in this encounter Care Teams Return To Factory Clerk Relationship Specialty Start Date End Date Lilly Cowart MD [address] [place] [phone] PCP - General Family Medicine 11/16/21 Marc Dahl RN [address] [place] [address] Registered Nurse Family Medicine 02/26/25 03/13/25 Karla Harrison 02/26/25 03/13/25 Marc Dahl RN [address] [place] [address] Registered Nurse Family Medicine 04/13/25 04/13/25 Karla Harrison 04/13/25 04/13/25 documented as of this encounter
--- OUTSIDE RECORDS SUMMARY | 2025-06-21 14:06 | XMS_ITS | Encounter Summary ---
Author Organization [employer] Address [address] [facility] [address] [place] [address] Care Team Providers Care Director Consumer Affairs Name Role Phone Lilly Cowart MD Primary Care Provider [phone] Marc Dahl RN Unavailable [phone] Karla Harrison Unavailable Marc Dahl RN Unavailable [phone] Karla Harrison Unavailable Encounter Details Date Type Department Care Team (Late st Contact Info) Description 01/23/2024 Orders Only [facility] [address] [place] [address] Lilly Cowart MD [address] [place] [address] Social History Tobacco Use Types Packs/Day Years [...] PM EDT Narrative 04/05/2024 6:59 AM EDT [place] [id number] Fluoroscopy Report Signed Patient: Nadege Lee MR#: [id number] : 1960 Acct:[id number] Age/Sex: 63 / F ADM Date: 01/31/24 Loc: CF Attending Dr: Yvon Rodriguez MD Ordering Physician: Rut Heaton APRN, VENU Date of Service: 01/31/24 Procedure(s): FL guidance in treatment room Accession Number(s): [id number] cc: Rut Heaton APRN, VENU; Lilly Cowart EXAMINATION: XR FLUOROSCOPY WITH IMAGES [...] in OV> 04/05/24 0655 DD/ 1445 TD/TT: Belt Dresser: SS Procedure Note Donotuseinterpreter, Image - 04/05/2024 [place] [address] Fluoroscopy Report Signed Patient: Taty Lee#: [id number] : 2Acct:[id number] Age/Sex: 63 / FADM Date: 01/31/24 Loc: CF Attending Dr: Yvon Rodriguez MD Ordering Physician: Rut Heaton APRN, CNP Date of Service: 01/31/24 Procedure(s): FL guidance in treatment room Accession Number(s): [id number] cc: Rut Heaton APRN, CNP; Lilly Cowart [...] in OV> 04/05/24 0655 DD/ 1445 TD/TT: Belt Dresser: MARY [facility] External Provider IMG IR PROCEDURES Final Result documented in this encounter Visit Diagnoses Not on filedocumented in this encounter Additional Health Concerns Assessment Noted Time PHQ-9 Depression Total Score: 8 12/27/19 24 3:25 PM EDT documented as of this encounter Care Teams Director Consumer Affairs Relationship Specialty Start Date End Date Lilly Cowart MD [address] [place] [address] PCP - General Family Medicine 11/16/21 Marc Dahl RN [address] [place] [address] Registered Nurse Family Medicine 02/26/25 03/13/25 Karla Harrison 02/26/25 03/13/25 Marc Dahl RN [address] [place] [address] Registered Nurse Family Medicine 04/13/25 04/13/25 Karla Harrison 04/13/25 04/13/25 documented as of this encounter
--- OUTSIDE RECORDS SUMMARY | 2025-06-21 14:06 | XMS_ITS | Encounter Summary ---
Author Organization [employer] Address [address] [facility] [address] [place] [address] Care Team Providers Care Bridge Maintenance Worker Name Role Phone Lilly Cowart MD Primary Care Provider [phone] Marc Dahl RN Unavailable [phone] Karla Harrison Unavailable Marc Dahl RN Unavailable [phone] Karla Harrison Unavailable Encounter Details Date Type Department Care Team (Late st Contact Info) Description 05/25/2023 Abstract [facility] [address] [place] [address] Lilly Cowart MD [address] [place] [address] Social History Tobacco Use Types Packs/Day Years [...] on filedocumented in this encounter Care Teams Bridge Maintenance Worker Relationship Specialty Start Date End Date Lilly Cowart MD [address] [place], [place] [phone] PCP - General Family Medicine 11/16/21 Marc Dahl, RN [address] [place] [address] Registered Nurse Family Medicine 02/26/25 03/13/25 Karla Harrison 02/26/25 03/13/25 Marc Dahl RN [address] [place] [address] Registered Nurse Family Medicine 04/13/25 04/13/25 Karla Harrison 04/13/25 04/13/25 documented as of this encounter
--- OUTSIDE RECORDS SUMMARY | 2025-06-21 14:06 | XMS_ITS | Encounter Summary ---
Author Organization [employer] Address [address] [facility] [address] [place] [address] Care Team Providers Care Orchardist Name Role Phone Lilly Cowart MD Primary Care Provider [phone] Marc Dahl RN Unavailable [phone] Karla Harrison Unavailable Marc Dahl RN Unavailable [phone] Karla Harrison Unavailable Reason for Visit * Reason Comments Med Refill Encounter Details Date Type Department Care Team (Late st Contact Info) Description 11/01/[address] [facility] [address] [place] [address] Bouchra Pacheoc MD [address] [place] [address] Cellulitis of right lower limb Social History [...] limb documented in this encounter Care Teams Orchardist Relationship Specialty Start Date End Date Lilly Cowart MD [address] [place] [address] PCP - General Family Medicine 11/16/21 Marc Dahl, RN [address] [place] [address] Registered Nurse Family Medicine 02/26/25 03/13/25 Karla Harrison 02/26/25 03/13/25 Marc Dahl RN [address] [place] [address] Registered Nurse Family Medicine 04/13/25 04/13/25 Karla Harrison 04/13/25 04/13/25 documented as of this encounter
--- OUTSIDE RECORDS SUMMARY | 2025-06-21 14:06 | XMS_ITS | Encounter Summary ---
Author Organization [email or web address] Address [address] [facility] [address] [place] [address] Care Team Providers Care Brusher Machine Name Role Phone Lilly Cowart MD Primary Care Provider [phone] Reason for Visit * Reason Onset Date Comments Dec Recall 06/18/2025 Encounter Details Date Type Department Care Team (Late st Contact Info) Description 06/18/2025 Telephone [facility] [address] [place], [place] [phone] Lilly Cowart MD [address] [place], [place] [phone] Dec Recall Social History Tobacco Use Types Packs/Day Years [...] encounter Miscellaneous Notes * Telephone Encounter - Warren Pugh MA - 06/18/2025 2:05 PM EDT Telephone call to patient to schedule a recall appointment. No answer, Left voicemail to return call to clinic.. Recall letter sent. Visit type: Office visit Appointment notes: office visit Month due: August With: Supa Please schedule appointment above if patient returns call documented in this encounter Plan of Treatment Not on file documented as of this encounter Visit Diagnoses Not on filedocumented in this encounter Additional Health Concerns Assessment Noted Time PHQ-9 Depression Total Score: 9 02/14/20 25 8:03 AM EDT documented as of this encounter Care Teams Brusher Machine Relationship Specialty Start Date End Date Lilly Cowart MD [address] [place] [address] PCP - General Family Medicine 11/16/21 documented as of this encounter
--- OUTSIDE RECORDS SUMMARY | 2025-06-21 14:06 | XMS_ITS | Encounter Summary ---
Author Organization [employer] Address 75 [facility] 7t [place] [address] Care Team Providers Care Care Coordinator Name Role Phone Lilly Cowart MD Primary Care Provider [phone] Marc Dahl RN Unavailable [phone] Karla Harrison Unavailable Encounter Details Date Type Department Care Team (Late st Contact Info) Description 04/06/2025 Orders Only [facility] MEDICINE [address] [place] [address] Lilly Cowart MD [address] [place] [address] Social History Tobacco Use Types Packs/Day Years [...] documented as of this encounter Care Teams Care Coordinator Relationship Specialty Start Date End Date Lilly Cowart MD [address] [place] [phone] PCP - General Family Medicine 11/16/21 Marc Dahl, HENOK [address] [place] [address] Registered Nurse Family Medicine 04/13/25 04/13/25 Karla Harrison 04/13/25 04/13/25 documented as of this encounter
--- OUTSIDE RECORDS SUMMARY | 2025-06-21 14:06 | XMS_ITS | Encounter Summary ---
Author Organization [employer] Address 75 [facility] 7t [place] [address] Care Team Providers Care Brake Shoe Rebuilder Name Role Phone Lilly Cowart MD Primary Care Provider [phone] Encounter Details Date Type Department Care Team (Late st Contact Info) Description 06/21/2025 Orders Only GENERIC EXTERNAL DATA DEPARTMENT Provider, Generic External Data Social History Tobacco Use Types Packs/Day Years [...] AUTO DIFFERENTIAL Routine 06/21/2025 1:52 PM EDT documented in this encounter Results * (ABNORMAL) CBC auto differential (06/21/2025 1:52 PM EDT) White Blood Count 8.4 4.8 - 10.8 X10*3/uL [facility] Red Blood Count 4.12(L) 4.20 - 5.50 X10*6/uL [facility] Hemoglobin 9.9(L) 12.0 - 16.0 g/dl [facility] Hematocrit 31.2(L) 37.0 - 47.0 % [facility] Mean Corpuscular Volume 75.7(L) 80.0 - 98.0 fL [facility] Mean Corpuscular Hemoglobin 24.0(L) 27.0 - 33.0 pg [facility] Mean Corpuscular HGB Conc 31.7 31.0 - 35.0 g/dl [facility] Red Cell Distribution Width 18.1(H) 11.0 - 16.0 % [facility] Platelet Count 239 160 - 400 X10*3/uL [facility] Mean Platelet Volume 10.7 9.4 - 12.3 fL [facility] Neutrophils Percent Auto 49.3 45 - 73 % [facility] Imm Gran Pct Auto 0.5(H) 0.0 - 0.4 % [facility] Lymphocytes Percent Auto 39.3 20 - 40 % [facility] Monocytes Percent Auto 6.6 2 - 11 % [facility] Eosinophils Percent Auto 3.7 0 - 4 % [facility] Basophils Percent Auto 0.6 0 - 2 % [facility] NRBC Pct Auto 0.0 0.0 - 0.2 /100WBC [facility] Neutrophils Absolute Auto 4.2 2.0 - 8.3 x10*3/uL [facility] Imm Gran Abs Auto 0.04(H) 0.00 - 0.03 X10*3/uL [facility] Lymphocytes Absolute Auto 3.3 1.2 - 4.9 X10*3/uL [facility] Monocytes Absolute Auto 0.6 0.1 - 1.2 X10*3/uL [facility] Eosinophils Absolute Auto 0.3 0.0 - 0.4 X10*3/uL [facility] Basophils Absolute Auto 0.1 0.0 - 0.2 X10*3/uL [facility] NRBC Abs Auto 0.000 0.0 - 0.012 X10*3/uL [facility] 06/21/2025 1:52 PM EDT 06/21/2025 1:58 PM EDT us Generic External Data Provider LAB BLOOD ORDERAB LES Final Result Performing Organization Address City/State/[facility] Co de Phone Number [facility] [address] [place] [address] [phone] documented in this encounter Visit Diagnoses Not on filedocumented in this encounter Additional Health Concerns Assessment Noted Time PHQ-9 Depression Total Score: 9 02/14/20 25 8:03 AM EDT documented as of this encounter Care Teams Brake Shoe Rebuilder Relationship Specialty Start Date End Date Lilly Cowart MD [address] [place] [address] PCP - General Family Medicine 11/16/21 documented as of this encounter
[2025-06-21 14:07] LABS: INTERNATIONAL NORM RATIO 1.0 (0.9-1.1); Prothrombin Time 11.3 SEC (10.9-12.4)
[2025-06-21 14:10] LABS: Appearance Urine Clear; Glucose Urine UA Negative (Negative); PH 6.0 (5.0-9.0); Partial Thromboplastin Time 28.7 SEC (26.7-34.1); Specific Gravity - Urine 1.020 (1.005-1.025)
[2025-06-21 14:22] LABS: Alanine Aminotransferase 15 U/L (0-31); Albumin Level 4.3 g/dL (3.5-5.0); Alkaline Phosphatase 102 U/L (39-117); Anion Gap 12 (12-20); Aspartate Amino Transferase 23 U/L (5-31); Blood Urea Nitrogen 19 mg/dL (9-16); Calcium 9.6 mg/dL (8.4-10.2); Carbon Dioxide 25 mmol/L (22-29); Chloride 107 mmol/L (96-108); Creatinine Clr Calc Pharmacy 84.2; Estimated Glomerular Filt Rate > 60; Potassium 4.1 mmol/L (3.3-5.1); Sodium 140 mmol/L (135-145); Total Protein 7.4 g/dL (6.5-8.0)
[2025-06-21 15:58] VITALS: BP 149/79; PULSE 78; RESP 13; TEMP 37.1; O2SAT 98
--- NOTE | 2025-06-21 16:08 | PC.NURSE ---
Pt has bilateral flank pain, also low abdominal cramping, radiating down legs for 3 days. Rates pain 10/10. Today she reports a Tablespoon of vaginal bleeding. Reports chills and sweats, but no recorded fever. She had a hysterectomy in 1996. HX cervical cancer, self caths at home.
[2025-06-21] MEDS: iohexoL 350 MG/ML 100 ML INFUS..BTL IV (17:50)
[2025-06-21 18:26] VITALS: BP 135/83; PULSE 74; RESP 16; O2SAT 99
[2025-06-21] MEDS: oxyCODONE HCl Immed Release 5 MG TABLET PO (19:30)
[2025-06-21 19:37] VITALS: BP 135/83; PULSE 74; RESP 16; TEMP -17.7; TEMP 0; O2SAT 99
== END 2025-06-21 19:38 | disposition home or self-care (01) ==
PROVIDERS: Physician Assistant; Emergency Provider Emergency Medicine; PCP General Practice
DX: R10.30 Lower abdominal pain, unspecified (principal); R00.0 Tachycardia, unspecified; I10 Essential (primary) hypertension; N18.30 Chronic kidney disease, stage 3 unspecified; D64.9 Anemia, unspecified; Z96.651 Presence of right artificial knee joint; Z85.41 Personal history of malignant neoplasm of cervix uteri; Z79.899 Other long term (current) drug therapy
CPT/HCPCS: 36415; 74177; 80053; 81003; 85025; 85610; 85730; 96374; 96375; 99284; 99285; J2270; J2405; Q9967

== ENCOUNTER → 2025-06-21 16:26 | Outpatient (BNV) | payer MEDICAID, SELFPAY | PROVIDERS: Emergency Provider Emergency Medicine; PCP General Practice; Visit Provider Radiology Diagnostic Radiology | DX: R10.30 Lower abdominal pain, unspecified (principal) | CPT/HCPCS: 74177 ==

== ENCOUNTER 2025-07-15 12:17 | Outpatient (REF) | payer MEDICAID, SELFPAY ==
--- NOTE | ~2025-07-15 | XR_ITS ---
EXAMINATION: XR LUMBOSACRAL SPINE CLINICAL INFORMATION: back pain, hisotry of cervical cancer in 1996 COMPARISON: CT of the abdomen and pelvis June 2025 and lumbar spine x-ray December 2023 TECHNIQUE: Four views of the lumbosacral spine including Fergueson view. FINDINGS: There is curvature of the lumbar spine to the left, apex L2. Bone alignment is otherwise normal. No fracture or dislocation or bone lesion. Degenerative spondylosis and degenerative disc disease of the lower lumbar spine and at L1-2. Lower lumbar spine facet arthritis. Retroperitoneal surgical clips. Mild atherosclerotic disease. XR/XR lumbar spine 2-3V IMPRESSION: Mild scoliosis and degenerative changes. No fracture or bone lesion. Electronically signed by: Mirlande Culp MD 07/15/2025 02:13 PM EDT
--- OUTSIDE RECORDS SUMMARY | 2025-07-15 11:30 | XMS_ITS | Encounter Summary ---
Author Organization [employer] Address 75 [facility] 7t [place] [address] Care Team Providers Care Cake Former Name Role Phone Lilly Cowart MD Primary Care Provider Elvie Dumont RN Unavailable [phone] Viviana Marlow Unavailable Reason for Visit * Reason Comments Follow-up Encounter Details Date Type Department Care Team ([facility] st Contact Info) Description 07/15/2025 11:30 AM EDT Office Visit [facility] [address] [place] [address] Lilly Cowart MD [address] [place] [address] Chronic bilateral low back pain without sciatica (Primary Dx); Chronic pain of right knee; Cellulitis of right lower limb; Vertebral artery stenosis, bilateral; Malignant neoplasm of endocervix (CMS/HCC) (HCC); Anemia, unspecified type; Moderate persistent asthma without complication; Other chronic pain; Pelvic pain Social History Tobacco Use Types Packs/Day [...] Sign Reading Time Taken Comments Blood Pressure 160/80 07/15/2025 10:52 AM EDT Pulse 85 07/15/2025 10:52 AM EDT Temperature 36.1 C (97 F) 07/15/2025 10:52 AM EDT Respiratory Rate 20 07/15/2025 10:52 AM EDT Oxygen Saturation 98% 07/15/2025 10:52 AM EDT Inhaled Oxygen Concentration - - Weight 79.4 kg (175 lb) 07/15/2025 10:52 AM EDT Height 162.6 cm (5' 4 ) 07/15/2025 10:52 AM EDT Body Mass Index 30.04 07/15/2025 10:52 AM EDT documented in this encounter Plan of Treatment Upcoming Encounters Date Type Department Care Team (Late st Contact Info) Description 10/15/2025 11:30 AM EST Clinical Support [facility] [address] [place] [address] Hazel Leyva, RN Scheduled Orders Name Type Priority Associated Diagnoses Orde r Schedule Chlamydia/N. Gonorrhoeae RNA, TMA, Urogenitial Microbiology Routine Pelvic pain Expected: 07/15/2025 (Approximate), Expires: 07/15/2026 Bacterial Vaginosis Panel Microbiology Routine Pelvic pain Ordered: 07/15/2025 documented as of this encounter Procedures Procedure Name Priority Date/Time Associated Diagnosis Comments XR LUMBAR SPINE 2-3 VIEWS Routine 07/15/2025 2:00 PM EDT Chronic bilateral low back pain without sciatica POCT CRISTÓBAL-14 URINE DRUG SCREEN Routine 07/15/2025 12:12 PM EDT Chronic bilateral low back pain without sciatica documented in this encounter Results * XR Lumbar Spine 2-3 Views (07/15/2025 2:00 PM EDT) Anatomical Region Laterality Modality Spine, L-spine Radiographic Sadia ging 07/15/2025 2:00 PM EDT Narrative 07/15/2025 2:15 PM EDT [address] [address] XRay Report Signed Patient: Nadege Lee MR#: [id number] : 1960 Acct:[id number] Age/Sex: 65 / F ADM Date: 07/15/25 Loc: HO.HHCX Attending Dr: Lilly Cowart MD Ordering Physician: Lilly Cowart Date of Service: 07/15/25 Procedure(s): XR lumbar spine 2-3V Accession Number(s): [id number] cc: Lilly Cowart Reason for Exam: back pain, hisotry of cervical cancer in 1996 EXAMINATION: XR LUMBOSACRAL SPINE CLINICAL INFORMATION: back pain, hisotry of cervical cancer in 1996 COMPARISON: CT of the abdomen and pelvis June 2025 and lumbar spine x-ray December 2023 TECHNIQUE: Four views of the lumbosacral spine including Fergueson view. FINDINGS: There is curvature of the lumbar spine to the left, apex L2. Bone alignment is otherwise normal. No fracture or dislocation or bone lesion. Degenerative spondylosis and degenerative disc disease of the lower lumbar spine and at L1-2. Lower lumbar spine facet arthritis. Retroperitoneal surgical clips. Mild atherosclerotic disease. XR/XR lumbar spine 2-3V IMPRESSION: Mild scoliosis and degenerative changes. No fracture or bone lesion. Electronically signed by: Mirlande Culp MD 07/15/2025 02:13 PM EDT RP Dictated By: Mirlande Culp MD Signed By: <Electronically signed by Mirlande Culp MD in OV> 07/15/25 1413 DD/ 1400 TD/TT: 07/15/25 1403 Cardiology Physician: DARIA Procedure Note Donotuseinterpreter, Image - 07/15/[address] [address] XRay Report Signed Patient: Nadege LeeMR#: [id number] : 1960cct:[id number] Age/Sex: 65 / FADM Date: 07/15/25 Loc: HO.HHCX Attending Dr: Lilly Cowart MD Ordering Physician: Lilly Cowart Date of Service: 07/15/25 Procedure(s): XR lumbar spine 2-3V Accession Number(s): [id number] cc: Lilly Cowart Reason for Exam: back pain, hisotry of cervical cancer in 1996 EXAMINATION: XR LUMBOSACRAL SPINE CLINICAL INFORMATION: back pain, hisotry of cervical cancer in 1996 COMPARISON: CT of the abdomen and pelvis June 2025 and lumbar spine x-ray December 2023 TECHNIQUE: Four views of the lumbosacral spine including Fergueson view. FINDINGS: There is curvature of the lumbar spine to the left, apex L2. Bone alignment is otherwise normal. No fracture or dislocation or bone lesion. Degenerative spondylosis and degenerative disc disease of the lower lumbar spine and at L1-2. Lower lumbar spine facet arthritis. Retroperitoneal surgical clips. Mild atherosclerotic disease. XR/XR lumbar spine 2-3V IMPRESSION: Mild scoliosis and degenerative changes. No fracture or bone lesion. Electronically signed by: Mirlande Culp MD 07/15/2025 02:13 PM EDT RP Dictated By: Mirlande Culp MD Signed By: <Electronically signed by Mirlande Culp MD in OV> 07/15/25 1413 DD/ 1400 TD/TT: 07/15/25 140 Cardiology Physician: DARIA us Lilly Cowart MD IMG XR PROCEDURES Final Result * POCT CRISTÓBAL-14 Urine Drug Screen (07/15/2025 12:12 PM EDT) THC Negative Negative Cocaine Screen, Urine Negative Negative Opiate Screen, Urine Negative Negative Methamphetamine Screen Urine Negative Negative Amphetamine Screen, Urine Negative Negative Benzodiazepines Screen, Urine Negative Negative Barbiturate Screen, Urine Negative Negative Methadone Screen, Urine Negative Negative Buprenophine Screen, Urine Negative Negative TCA, Urine Negative Negative MDMA Urine Negative Negative ng/mL Oxycodone Screen, Urine Negative Negative Phencyclidine (PCP), Urine Negative Negative Propoxyphene, Urine Negative Negative Fentanyl, Urine Negative Negative Urine Urine specimen obtained by clean catch procedure / Unknown 07/15/2025 12:12 PM EDT Hazel Guzman RN - 07/15/2025 12:12 PM EDT UTOX cup Lot#[id number] Exp. 06/23/26 Internal Pass Control Lilly Cowart MD POINT OF CARE TEST ENTER/EDIT ORDERABLES Final Result documented in this encounter Visit Diagnoses Diagnosis Chronic bilateral low back pain without sciatica- Primary Chronic pain of right knee Cellulitis of right lower limb Vertebral artery stenosis, bilateral Malignant neoplasm of endocervix (CMS/HCC) (HCC) Malignant neoplasm of endocervix Anemia, unspecified type Moderate persistent asthma without complication Other chronic pain Pelvic pain documented in this encounter Additional Health Concerns Assessment Noted Time PHQ-9 Depression Total Score: 9 02/14/20 25 8:03 AM EDT documented as of this encounter Care Teams Cake Former Relationship Specialty Start Date End Date Lilly Cowart MD [address] [place] [address] PCP - General Family Medicine 11/16/21 Elvie Dumont, HENOK [address] [place] [address] Registered Nurse Family Medicine 06/22/25 Viviana Marlow 06/22/25 documented as of this encounter
--- OUTSIDE RECORDS SUMMARY | 2025-07-15 15:40 | XMS_ITS | Encounter Summary ---
Author Organization [employer] Address 75 [facility] 7t [place] [address] Care Team Providers Care Entry Level Sales Consultant Name Role Phone Lilly Cowart MD Primary Care Provider [phone] Elvie Dumont RN Unavailable [phone] Viviana Marlow Unavailable Reason for Visit * Reason Comments Med Change Request Encounter Details Date Type Department Care Team ([facility] st Contact Info) Description 07/15/2025 Refill [facility] MEDICINE [address] [place], [place] [phone] Lilly Cowart MD [address] [place] [address] Cellulitis of right lower limb Social History [...] Description 10/15/2025 11:30 AM EST Clinical Support [facility] MEDICINE [address] [place] [address] Hazel Leyva RN documented as of this encounter Visit Diagnoses Diagnosis Cellulitis of right lower limb documented in this encounter Additional Health Concerns Assessment Noted Time PHQ-9 Depression Total Score: 9 02/14/20 25 8:03 AM EDT documented as of this encounter Care Teams Entry Level Sales Consultant Relationship Specialty Start Date End Date Lilly Cowart MD [address] [place] [address] PCP - General Family Medicine 11/16/21 Elvie Dumont, HENOK [address] [place] [address] Registered Nurse Family Medicine 06/22/25 Viviana Marlow 06/22/25 documented as of this encounter
--- OUTSIDE RECORDS SUMMARY | 2025-07-15 15:40 | XMS_ITS | Clinical Summary ---
Author Organization [facility] Address [address] [place] [address] Care Team Providers Care Garden Machinery Mechanic Name Role Phone Unavailable Primary Care Provider [...]
--- OUTSIDE RECORDS SUMMARY | 2025-07-15 15:40 | XMS_ITS | Encounter Summary ---
Author Organization [facility] Address 75 [facility] 7t [place] [address] Care Team Providers Care Personal Chef Name Role Phone Lilly Cowart MD Primary Care Provider [phone] Marc Dahl RN Unavailable [phone] Karla Harrison Unavailable Marc Dahl RN Unavailable [phone] Karla Harrison Unavailable Elvie Dumont RN Unavailable [phone] Viviana Marlow Unavailable Encounter Details Date Type Department Care Team (Late Contact Info) Description 05/25/2023 Abstract [facility] MED[facility]INE [address] [place] [address] Lilly Cowart MD [address] [place], [place] [phone] Social History Tobacco Use Types Packs/Day Years [...] Encounters Date Type Department Care Team (Late Contact Info) Description 10/15/2025 11:30 AM EST Clinical Support [facility] MED[facility]INE [address] [place] [address] Hazel Leyva, RN documented as of this encounter Visit Diagnoses Not on filedocumented in this encounter Care Teams Personal Chef Relationship Specialty Start Date End Date Lilly Cowart MD [address] [place] [address] PCP - General Family Medicine 11/16/21 Marc Dahl, HENOK [address] [place] [address] Registered Nurse Family Medicine 02/26/25 03/13/25 Karla Harrison 02/26/25 03/13/25 Marc Dahl RN [address] [place] [address] Registered Nurse Family Medicine 04/13/25 04/13/25 Karla Harrison 04/13/25 04/13/25 Elvie Dumont, HENOK [address] [place] [address] Registered Nurse Family Medicine 06/22/25 Viviana Marlow 06/22/25 documented as of this encounter
--- OUTSIDE RECORDS SUMMARY | 2025-07-15 15:40 | XMS_ITS | Encounter Summary ---
Author Organization [employer] Address 75 [facility] 7t [place] [address] Care Team Providers Care Assistant Editor Name Role Phone Lilly Cowart MD Primary Care Provider [phone] Marc Dahl RN Unavailable [phone] Karla Harrison Unavailable Marc Dahl RN Unavailable [phone] Karla Harrison Unavailable Elvie Dumont RN Unavailable [phone] Viviana Marlow Unavailable Encounter Details Date Type Department Care Team (Late st Contact Info) Description 01/23/2024 Orders Only [facility] MEDICINE [address] [place], [place] [phone] Lilly Cowart MD [address] [place] [address] Social History Tobacco Use Types Packs/Day Years [...] Description 10/15/2025 11:30 AM EST Clinical Support [facility] MEDICINE [address] [place] [address] Hazel Leyva RN documented as of this encounter Procedures Procedure Name Priority Date/Time Associated Diagnosis Comments FL GUIDANCE IN TREATMENT ROOM Routine 01/31/2024 2:45 PM EDT documented in this encounter Results * FL Guidance in Treatment Room (01/31/2024 2:45 PM EDT) Anatomical Region Laterality Modality X-Ray Angiograph y 01/31/2024 2:45 PM EDT Narrative 04/05/2024 6:59 AM EDT [address] [address] Fluoroscopy Report Signed Patient: Nadege Lee MR#: [id number] : 1960 Acct:[id number] Age/Sex: 63 / F ADM Date: 01/31/24 Loc: CF Attending Dr: Yvon Rodriguez MD Ordering Physician: Rut Heaton APRN, VENU Date of Service: 01/31/24 Procedure(s): FL guidance in treatment room Accession Number(s): [id number] cc: Rut Heaton APRN, VENU; Lilly Cowart [...] in OV> 04/05/24 0655 DD/ 1445 TD/TT: Accounts Manager: SS Procedure Note Donotuseinterpreter, Image - 04/05/2024 [place] [address] Fluoroscopy Report Signed Patient: Taty Lee#: [id number] : 2Acct:[id number] Age/Sex: 63 / FADM Date: 01/31/24 Loc: CF Attending Dr: Yvon Rodriguez MD Ordering Physician: Rut Heaton APRN, VENU Date of Service: 01/31/24 Procedure(s): FL guidance in treatment room Accession Number(s): [id number] cc: Rut Heaton APRN, VENU; Lilly Cowart [...] in OV> 04/05/24 0655 DD/ 1445 TD/TT: Accounts Manager: MARY [facility] External Provider IMG IR PROCEDURES Final Result documented in this encounter Visit Diagnoses Not on filedocumented in this encounter Additional Health Concerns Assessment Noted Time PHQ-9 Depression Total Score: 8 12/27/19 24 3:25 PM EDT documented as of this encounter Care Teams Assistant Editor Relationship Specialty Start Date End Date Lilly Cowart MD [address] [place] [address] PCP - General Family Medicine 11/16/21 Marc Dahl RN [address] [place] [address] Registered Nurse Family Medicine 02/26/25 03/13/25 Karla Harrison 02/26/25 03/13/25 Marc Dahl RN [address] [place] [address] Registered Nurse Family Medicine 04/13/25 04/13/25 Karla Harrison 04/13/25 04/13/25 Elvie Dumont RN [address] [place] [address] [place] [address] Registered Nurse Family Medicine 06/22/25 Viviana Marlow 06/22/25 documented as of this encounter
--- OUTSIDE RECORDS SUMMARY | 2025-07-15 15:40 | XMS_ITS | Encounter Summary ---
Author Organization [employer] Address 75 [facility] 7t [place] [address] Care Team Providers Care Mining And Quarrying Machinery Repairer Name Role Phone Lilly Cowart MD Primary Care Provider [phone] Elvie Dumont RN Unavailable [phone] Viviana Marlow Unavailable Encounter Details Date Type Department Care Team (Latest Contact Info) Description 07/15/2025 Travel Social History Tobacco Use Types Packs/Day Years [...] Description 10/15/2025 11:30 AM EST Clinical Support [facility] MEDICINE [address] [place] [address] Hazel Leyva, HENOK documented as of this encounter Visit Diagnoses Not on filedocumented in this encounter Additional Health Concerns Assessment Noted Time PHQ-9 Depression Total Score: 9 02/14/20 25 8:03 AM EDT documented as of this encounter Care Teams Mining And Quarrying Machinery Repairer Relationship Specialty Start Date End Date Lilly Cowart MD [address] [place] [address] PCP - General Family Medicine 11/16/21 Elvie Dumont, HENOK [address] [place] [address] Registered Nurse Family Medicine 06/22/25 Viviana Marlow 06/22/25 documented as of this encounter
--- OUTSIDE RECORDS SUMMARY | 2025-07-15 15:40 | XMS_ITS | Clinical Summary ---
Author Organization [employer] Address [address] [facility] [place] [address] Care Team Providers Care Material Reprocessing Associate Name Role Phone Lilly Cowart MD Primary Care Provider [phone] Elvie Dumont RN Unavailable [phone] Viviana Marlow Unavailable Allergies Active Allergy Reactions Criticality Noted Date Comments Buspirone Other reaction(s): tongue tingles, unclear Butalbital 07/28/2013 Other reaction(s): dizziness & headache got worse Ibuprofen Swelling Other reaction(s): Zomig Paroxetine 05/05/2014 Other reaction(s): headache, tongue tingling Zolmitriptan 09/04/2022 Medications Blood Pressure Monitoring (Omron 3 Series BP Monitor) device USE TO CHECK BLOOD PRESSURE DAILY DIRECTED 01/13/20 22 Active nicotine (Nicoderm CQ) 21 MG/24HR patchIndication s:Smoker Apply 1 patch on the skin (one) time each day at the same time x 6 weeks. 42 patch 04/22/20 25 Active oxyCODONE (Roxicodone) 10 MG immediate release tabletIndicatio ns:Chronic pain of right knee Take 1 tablet (10 mg) by mouth every 12 (twelve) hours if needed for severe pain for up to 28 days. 56 tablet 07/15/20 25 025 Active rosuvastatin (Crestor) 5 MG tabletIndicatio ns:Vertebral artery stenosis, bilateral Take 1 tablet (5 mg) by mouth at bedtime. 90 tablet 3 07/15/20 25 026 Active Multiple Vitamins-Minera ls (CertaVite/Anti oxidants) tabletIndicatio ns:Malignant neoplasm of endocervix (CMS/HCC) (HCC) Take 1 tablet by mouth in the morning. 90 tablet 3 07/15/20 25 Active metoprolol succinate XL (Toprol-XL) 25 MG 24 hr tablet Take 1 tablet (25 mg) by mouth Once per day. Do not crush or chew. 90 tablet 4 07/15/20 25 Active melatonin 5 MG tablet Take 2 tablets (10 mg) by mouth if needed at bedtime (insomnia). 180 tablet 3 07/15/20 Active lisinopril 40 MG tablet Take 1 tablet (40 mg) by mouth Once per day. 90 tablet 3 07/15/20 25 Active Heating Pads pads Apply 1 each topically if needed each day (low back frandy). 1 each 07/15/20 25 Active ferrous gluconate (Fergon) 324 (38 Fe) MG tabletIndicatio ns:Anemia, unspecified type Take 1 tablet (324 mg) by mouth with breakfast. 90 tablet 3 07/15/20 25 026 Active DULoxetine (Cymbalta) [address] capsuleIndicati ons:Chronic pain of right knee Take 1 capsule (60 mg) by mouth Once per day. Do not crush or chew. 90 capsule 3 07/15/20 25 Active aspirin (ASPIR) 81 MG EC tabletIndicatio ns:Vertebral artery stenosis, bilateral Take 1 tablet (81 mg) by mouth Once per day. 90 tablet 3 07/15/20 25 026 Active albuterol (Ventolin HFA) 108 (90 Base) MCG/ACT inhalerIndicati ons:Moderate persistent asthma without complication INHALE 2 PUFFS BY MOUTH EVERY 4 TO 6 HOURS NEEDED FOR WHEEZING OR SHORTNESS OF BREATH 18 g 11 07/15/20 25 Active acetaminophen (Tylenol 8 Hour) 650 MG ER tabletIndicatio ns:Other chronic pain TAKE 2 TABLETS EVERY 8 HOURS NEEDED FOR PAIN, DO NOT BREAK, CRUSH, DISSOLVE OR CHEW 100 tablet 3 07/15/20 25 Active mineral oil-hydrophil petrolat ointment Topical OintmentIndicat ions:Cellulitis of right lower limb APPLY TOPICALLY NEEDED FOR DRY SKIN 454 g 3 07/15/20 25 Active Heating Pads pads use for low back pain 03/31/20 22 025 Discontinued(Re order (will not trigger notification to Pharmacy)) Petrolatum 42 % ointment Apply topically if needed. 03/22/20 23 025 Discontinued(Th erapy completed) Multiple Vitamins-Minera ls (CertaVite/Anti oxidants) tabletIndicatio ns:Malignant neoplasm of endocervix (CMS/HCC) (HCC) TAKE 1 TABLET BY MOUTH EVERY MORNING 90 tablet 3 11/13/19 24 025 Discontinued(Re order (will not trigger notification to Pharmacy)) metoprolol succinate XL (Toprol-XL) 25 MG 24 hr tablet TAKE 1 TABLET BY MOUTH EVERY DAY 90 tablet 4 06/20/20 24 025 Discontinued(Re order (will not trigger notification to Pharmacy)) rosuvastatin (Crestor) 5 MG tabletIndicatio ns:Vertebral artery stenosis, bilateral Take 1 tablet (5 mg) by mouth at bedtime. 90 tablet 3 10/20/19 25 025 Discontinued(Re order (will not trigger notification to Pharmacy)) aspirin (ASPIR) 81 MG EC tabletIndicatio ns:Vertebral artery stenosis, bilateral Take 1 tablet (81 mg) by mouth Once per day. 90 tablet 3 10/20/19 025 Discontinued(Re order (will not trigger notification to Pharmacy)) mineral oil-hydrophil petrolat ointment Topical OintmentIndicat ions:Cellulitis of right lower limb APPLY TOPICALLY NEEDED FOR DRY SKIN 454 g 3 11/14/19 25 025 Discontinued(Re order (will not trigger notification to Pharmacy)) acetaminophen (Tylenol 8 Hour) 650 MG ER tabletIndicatio ns:Other chronic pain TAKE 2 TABLETS EVERY 8 HOURS NEEDED FOR PAIN, DO NOT BREAK, CRUSH, DISSOLVE OR CHEW 100 tablet 3 01/27/20 25 025 Discontinued(Re order (will not trigger notification to Pharmacy)) albuterol (Ventolin HFA) 108 (90 Base) MCG/ACT inhalerIndicati ons:Moderate persistent asthma without complication INHALE 2 PUFFS BY MOUTH EVERY 4 TO 6 HOURS NEEDED FOR WHEEZING OR SHORTNESS OF BREATH 18 g 11 01/27/20 25 025 Discontinued(Re order (will not trigger notification to Pharmacy)) melatonin 5 MG tablet TAKE 2 TABLETS BY MOUTH EVERY DAY AT BEDTIME NEEDED FOR SLEEP 180 tablet 3 02/12/20 Discontinued(Re order (will not trigger notification to Pharmacy)) Banophen 25 MG capsule TAKE 2 CAPSULES BY MOUTH EVERY 6 HOURS NEEDED FOR HEADACHE, NAUSEA, VOMITING 10/30/19 Discontinued( erapy completed) amoxicillin (Amoxil) 500 MG capsuleIndicati ons:Pain and swelling of lower extremity, right Take 1,000 mg by mouth 3 times daily. Discontinued( erapy completed) clotrimazole (Lotrimin) 1 % creamIndication s:Tinea pedis of both feet apply topically to the affected area(s) twice daily 04/16/20 Discontinued( erapy completed) DULoxetine (Cymbalta) [address] capsuleIndicati ons:Chronic pain of right knee Take 1 capsule (60 mg) by mouth Once per day. Do not crush or chew. 90 capsule 3 04/22/20 Discontinued(Re order (will not trigger notification to Pharmacy)) lisinopril 40 MG tablet TAKE 1 TABLET BY MOUTH EVERY DAY 90 tablet 3 04/24/20 Discontinued(Re order (will not trigger notification to Pharmacy)) oxyCODONE (Roxicodone) 10 MG immediate release tabletIndicatio ns:Chronic pain of right knee Take 1 tablet (10 mg) by mouth every 12 (twelve) hours if needed for severe pain for up to 28 days. 56 tablet 06/08/20 Discontinued ferrous gluconate (Fergon) 324 (38 Fe) MG tabletIndicatio ns:Anemia, unspecified type Take 1 tablet (324 mg) by mouth with breakfast. 90 tablet 3 06/22/20 025 Discontinued(Re order (will not trigger notification to Pharmacy)) oxyCODONE (Roxicodone) 10 MG immediate release tabletIndicatio ns:Chronic pain of right knee TAKE 1 TABLET BY MOUTH EVERY TWELVE HOURS FOR SEVERE PAIN 14 tablet 07/07/20 025 Discontinued(Re order (will not trigger notification to Pharmacy)) Mapap 500 MG capsule TAKE 2 CAPSULES BY MOUTH EVERY 8 HOURS NEEDED FOR PAIN 06/22/20 025 Discontinued(Th erapy completed) mineral oil-hydrophil petrolat ointment Topical OintmentIndicat ions:Cellulitis of right lower limb Apply topically if needed (dry eyes). 454 g 3 07/15/20 025 Discontinued Active Problems Problem Noted Date Diagnosed Date Long-term current use of opiate analgesic 2024 Hyperlipidemia 02/13/2025 Tinea pedis of both feet 02/13/2025 Vertebral artery stenosis, bilateral 10/20/2024 Overview (10/20/2024): on CTA at [facility] ED 10/18/24 Impaired mobility 01/17/2023 Assessment & [...] Will also have patient see ortho at [facility] to discuss washout of R TKA arthrosis? Oxycodone 5mg for nighttime x 30 days, use sparingly Assessment & Plan (11/09/2022 11:47 AM EST): Pt admitted to [facility] recently as a result. Work up did [...] long-term pain mgmt Malignant neoplasm of cervix ([facility]/HCC) Overview (09/13/2022): status post hysterectomy 1995 Assessment [...] Encounters Date Type Department Care Team Description 07/15/2025 11:30 AM EDT Office Visit [address] [address] Lilly Cowart MD Chronic bilateral low back pain without sciatica (Primary Dx); Chronic pain of right knee; Cellulitis of right lower limb; Vertebral artery stenosis, bilateral; Malignant neoplasm of endocervix (CMS/HCC) (HCC); Anemia, unspecified type; Moderate persistent asthma without complication; Other chronic pain; Pelvic pain 07/15/2025 Refill [facility] [address] [place] [phone] Lilly Cowart MD Cellulitis of right lower limb 07/15/2025 Travel 07/14/[address] [address] Lilly Cowart MD chart prep 07/06/2025 Refill [facility] [address] [place] [phone] Lilly Cowart MD Chronic pain of right knee 06/23/2025 Telephone [facility] [address] [place] [phone] Lilly Cowart MD chart prep 06/22/[address] [address] Lilly Cowart MD Nurse Triage 06/22/2025 Patient Outreach [facility] [address] [place] [phone] Lilly Cowart MD Care Coordination (CM/CHW outreach) 06/22/2025 Patient Outreach [address] [address] Lilly Cowart MD Care Coordination (CHW chart review) 06/22/2025 Results Follow-Up [address] Abdomen Pelvis w/ Contrast 06/22/2025 Patient Outreach [address] [address] Lilly Cowart MD Care Management ([facility]- chart review) 06/22/2025 Patient Outreach [address] [address] Lilly Cowart MD 06/21/2025 Orders Only GENERIC EXTERNAL DATA DEPARTMENT Provider, Generic External Data 06/18/[address] [address] Lilly Cowart MD Dec Recall 06/08/[address] [address] Lilly Cowart MD Chronic pain of right knee 06/01/[address] [address] Hazel Leyva RN [employer] Initial X2 05/05/[address] [address] Hazel Leyva RN [employer] Initial appt X1 04/28/[address] [address] Lilly Cowart MD Durable Medical Equipment (L&C FORM: Catheters) 04/23/2025 Refill [facility] [address] [place] [address] Lilly Cowart MD Other chronic pain 04/23/[address] [address] Hazel Leyva RN Error (VOID this visit) 04/22/2025 3:30 PM EDT Office Visit [facility] [address] [place] [phone] Lilly Cowart MD Chronic pain of right knee (Primary Dx); Migraine without aura, not refractory; Pain and swelling of lower extremity, right; Right lower quadrant abdominal pain; Smoker; Tinea pedis of both feet 04/22/2025 Travel 04/21/2025 Refill [facility] [address] [place] [address] Kae Garza ANP Recurrent cellulitis of lower extremity 04/16/2025 Telephone [facility] [address] [place], [place] [phone] Hazel Leyva, [employer]SULTANT Tier 04/16/[address] [phone] Lilly Cowart MD ED f/u 04/16/2025 Refill [facility] [address] [place], [place] [phone] Lilly Cowart MD Pain and swelling of lower extremity, right (Primary Dx) from Last 3 Months Immunizations Immunization Administration [...] your housing situation today? I have valentine coleman 12/27/[address] you li [...] Mass Index 30.04 07/15/2025 10:52 AM EDT Plan of Treatment Upcoming Encounters Date Type Department Care Team (Late st Contact Info) Description 10/15/2025 11:30 AM EST Clinical Support [facility] [address] [place] [address] Hazel Leyva, RN Health Maintenance Due Date Last Done Comments [...] 12/26/2024 12/27/2023 Mammogram 01/21/2025 01/22/2024 COVID-19 Vaccine ( season) 2025 09/30/2021, 09/08/2021 Influenza Vaccine (#1) 2025 7, 12/03/2016, 07/13/2016, Additional history exists Depression Monitoring 08/16/2025 02/13/2025, 025 Tobacco Screening 06/22/2026 06/22/2025 DTaP/Tdap/Td Vaccines (5 - Td or Tdap) [...] Chronic bilateral low back pain without sciatica CT ABDOMEN PELVIS W CONTRAST Routine 06/21/2025 6:35 PM EDT COMPREHENSIVE METABOLIC PANEL Routine 06/21/2025 1:52 PM EDT URINALYSIS WITH REFLEX MICROSCOPIC Routine 06/21/2025 1:52 PM EDT APTT Routine 06/21/2025 1:52 PM EDT PROTHROMBIN TIME-INR Routine 06/21/2025 1:52 PM EDT CBC WITH AUTO DIFFERENTIAL Routine 06/21/2025 1:52 PM EDT BI MAMMOGRAM SCREENING TOMOSYNTHESIS BILATERAL Routine 01/22/2024 2:21 PM EDT Encounter for screening mammogram for malignant neoplasm of breast from Last 3 Months or Most Recently Relevant to Health Maintenance Results * XR Lumbar Spine 2-3 Views (07/15/2025 2:00 PM EDT) Anatomical Region Laterality Modality Spine, L-spine Radiographic Sadia ging 07/15/2025 2:00 PM EDT Narrative 07/15/2025 2:15 PM EDT [address] [address] XRay Report Signed Patient: Nadege Lee MR#: [id number] : 1960 Acct:[id number] Age/Sex: 65 / F ADM Date: 07/15/25 Loc: HO.HHCX Attending Dr: Lilly Cowart MD Ordering Physician: Lilly Cowart Date of Service: 07/15/25 Procedure(s): XR lumbar spine 2-3V Accession Number(s): [id number] cc: Lilly Cowart Reason for Exam: back [...] Mirlande Culp MD 07/15/2025 02:13 PM EDT Dictated By: Mirlande Culp MD Signed By: <Electronically signed by Mirlande Culp MD in OV> 07/15/25 1413 DD/ 1400 TD/TT: 07/15/25 1403 [employer] Supervisor: DARIA Procedure Note Donotuseinterpreter, Image - 07/15/[address] [address] XRay Report Signed Patient: Nadege LeeMR#: [id number] : 1960cct:[id number] Age/Sex: 65 / FADM Date: 07/15/25 Loc: HO.HHCX Attending Dr: Lilly Cowart MD Ordering Physician: Lilly Cowart Date of Service: 07/15/25 Procedure(s): XR lumbar spine 2-3V Accession Number(s): [id number] cc: Lilly Cowart Reason for Exam: back [...] Mirlande Culp MD 07/15/2025 02:13 PM EDT Dictated By: Mirlande Culp MD Signed By: <Electronically signed by Mirlande Culp MD in OV> 07/15/25 1413 DD/ 1400 TD/TT: 07/15/25 1403 [employer] Supervisor: DARIA us Lilly Cowart MD IMG XR [...] procedure / Unknown 07/15/2025 12:12 PM EDT Narrative Hazel Leyva RN - 07/15/2025 12:12 PM EDT UTOX cup Lot#[id number] Exp. 06/23/26 Internal Pass Control Lilly Cowart MD POINT OF CARE TEST ENTER/EDIT ORDERABLES Final Result * CT Abdomen Pelvis w/ Contrast (06/21/2025 6:35 PM EDT) Anatomical Region Laterality Modality Body, Pelvis, Abdomen Computed T omography 06/21/2025 6:35 PM EDT Narrative 06/21/2025 6:36 PM EDT [place] [address] CT Scan Report Signed Patient: Nadege Lee MR#: [id number] : 1960 Acct:[id number] Age/Sex: 64 / F ADM Date: 06/21/25 Loc: .ED Attending Dr: Ordering Physician: John Sumner MD Date of Service: 06/21/25 Procedure(s): CT abdomen pelvis w IV con Accession Number(s): [id number] cc: Lilly Cowart; John Sumner MD Report Number: [id number]: Total DLP = 554.00 mGy-cm Reason for Exam: lower abdpain. Hx of DONNA CLINICAL HISTORY: lower abdpain. Hx of DONNA CT abdomen and pelvis with contrast Comparison: CT - CT ABDOMEN PELVIS W IV CON - 06/21/25 17:35 EDT Findings: Linear focus of atelectasis or scarring within the right middle lobe. There are a couple of small left kidney cysts. There is a focus of scarring within the upper pole of the right kidney. The liver, spleen, pancreas and adrenal glands are unremarkable. There are no calcified gallstones. No bowel obstruction, pneumoperitoneum, or pneumatosis. Status post hysterectomy. Unremarkable urinary bladder and appendix. The bones are intact. IMPRESSION: No acute abdominal disease. This document has been electronically signed by: Lora Damon MD on 06/21/2025 18:35:34 Dictated By: Lora Damon MD Signed By: <Electronically signed by Lora Damon MD in OV> 06/21/251835 DD/ 34 TD/TT: 06/21/251834 [employer] Supervisor: Procedure Note Donotuseinterpreter, Image - 06/21/[address] [place] [address] [address] Scan Report Signed Patient: Taty Lee#: [id number] : 2Acct:[id number] Age/Sex: 64 / FADM Date: 06/21/25 Loc: HO.ED Attending Dr: Ordering Physician: John Sumner MD Date of Service: 06/21/25 Procedure(s): CT abdomen pelvis w IV con Accession Number(s): [id number] cc: Lilly Cowart; John Sumner MD Report Number: [id number]: Total DLP = 554.00 mGy-cm Reason for Exam: lower abdpain. Hx of DONNA CLINICAL HISTORY: lower abdpain. Hx of [facility] CT abdomen and pelvis with contrast Comparison: CT - CT ABDOMEN PELVIS W IV CON - 06/21/25 17:35 EDT Findings: Linear focus of atelectasis or scarring within the right middle lobe. There are a couple of small left kidney cysts. There is a focus of scarring within the upper pole of the right kidney. The liver, spleen, pancreas and adrenal glands are unremarkable. There are no calcified gallstones. No bowel obstruction, pneumoperitoneum, or pneumatosis. Status post hysterectomy. Unremarkable urinary bladder and appendix. The bones are intact. IMPRESSION: No acute abdominal disease. This document has been electronically signed by: Lora Damon MD on 06/21/2025 18:35:34 Dictated By: Lora Damon MD Signed By: <Electronically signed by Lora Damon MD in OV> 06/21/251835 DD/ 34 TD/TT: 06/21/251834 [employer] Supervisor: [facility] External Provider IMG CT PROCEDURES Final Result * (ABNORMAL) CBC auto differential (06/21/2025 1:52 PM EDT) White Blood Count 8.4 4.8 - 10.8 X10*3/uL [facility] Red Blood Count 4.12(L) 4.20 - 5.50 X10*6/uL [facility] Hemoglobin 9.9(L) 12.0 - 16.0 g/dl [facility] Hematocrit 31.2(L) 37.0 - 47.0 % [facility] Mean Corpuscular Volume 75.7(L) 80.0 - 98.0 fL [facility] Mean Corpuscular Hemoglobin 24.0(L) 27.0 - 33.0 pg [facility] Mean Corpuscular HGB Conc 31.7 31.0 - 35.0 g/dl [facility] Red Cell Distribution Width 18.1(H) 11.0 - 16.0 % [facility] Platelet Count 239 160 - 400 X10*3/uL [facility] Mean Platelet Volume 10.7 9.4 - 12.3 fL [facility] Neutrophils Percent Auto 49.3 45 - 73 % [facility] Imm Gran Pct Auto 0.5(H) 0.0 - 0.4 % [facility] Lymphocytes Percent Auto 39.3 20 - 40 % [facility] Monocytes Percent Auto 6.6 2 - 11 % [facility] Eosinophils Percent Auto 3.7 0 - 4 % [facility] Basophils Percent Auto 0.6 0 - 2 % [facility] NRBC Pct Auto 0.0 0.0 - 0.2 /100WBC [facility] Neutrophils Absolute Auto 4.2 2.0 - 8.3 x10*3/uL [facility] Imm Gran Abs Auto 0.04(H) 0.00 - 0.03 X10*3/uL [facility] Lymphocytes Absolute Auto 3.3 1.2 - 4.9 X10*3/uL [facility] Monocytes Absolute Auto 0.6 0.1 - 1.2 X10*3/uL [facility] Eosinophils Absolute Auto 0.3 0.0 - 0.4 X10*3/uL [facility] Basophils Absolute Auto 0.1 0.0 - 0.2 X10*3/uL [facility] NRBC Abs Auto 0.000 0.0 - 0.012 X10*3/uL [facility] 06/21/2025 1:52 PM EDT 06/21/2025 1:58 PM EDT Generic External Data Provider LAB BLOOD ORDERAB LES Final Result Performing Organization Address [facility] Co de Phone Number [facility] [address] [place] [phone] * Urinalysis w/reflex microscopic (06/21/2025 1:52 PM EDT) Color Urine Yellow [facility] Appearance Urine Clear [facility] PH 6.0 5.0 - 9.0 [facility] Glucose Urine UA Negative Negative mg/dL [facility] Urine Blood Negative Negative [facility] Specific [place] - Urine 1.020 1.005 - 1.025 [facility] Urine Protein Negative Neg-Trace mg/dL [facility] Urine Ketones Trace Negative mg/dL [facility] Nitrite Urine Negative Negative [facility] Leukocyte Esterase Urine Negative Negative [facility] 06/21/2025 1:52 PM EDT 06/21/2025 1:58 PM EDT Narrative [facility] - 06/21/2025 2:11 PM EDT [id number], Clean Catch Generic External Data Provider LAB URINE ORDERAB LES Final Result Performing Organization Address [facility] Co de Phone Number [facility] [address] [place] [phone] * Partial Thromboplastin Time, Activated (APTT) (06/21/2025 1:52 PM EDT) Partial Thromboplastin Time 28.7 26.7 - 34.1 SEC [facility] 06/21/2025 1:52 PM EDT 06/21/2025 1:58 PM EDT us Generic External Data Provider LAB BLOOD ORDERAB LES Final Result Performing Organization Address [facility]/ZIP Co de Phone Number [facility] [address] [place] [phone] * Prothrombin Time-INR (06/21/2025 1:52 PM EDT) [facility] Prothrombin Time 11.3 10.9 - 12.4 SEC [facility] INTERNATIONAL NORM RATIO 1.0 0.9 - 1.1 [facility] Comment:INTERNATIONAL NORMAL IZED RATIO (INR) REFERENCE RANGES Reference RangeFor patients not on anticoagulant therapy: 0.9 - 1.1INR ranges for oral anticoagulanttherapy:For prevention and treatment of venous thrombosis and pulmonary embolism: 2.0 - 3.0For acute myocardial infarction with aspirin therapy: 2.0 - 3.0For acute myocardial infarction without aspirin therapy: 3.0 - 4.0For patients with mechanical prosthetic heart valves: 2.5 - 3.5 06/21/2025 1:52 PM EDT 06/21/2025 1:58 PM EDT us Generic External Data Provider LAB BLOOD ORDERAB LES Final Result Performing Organization Address [facility] Co de Phone Number [facility] [address] [place] [phone] * (ABNORMAL) Comprehensive Metabolic Panel (06/21/2025 1:52 PM EDT) [facility] Sodium 140 135 - 145 mmol/L [facility] Potassium 4.1 3.3 - 5.1 mmol/L [facility] Chloride 107 96 - 108 mmol/L [facility] Carbon Dioxide 25 22 - 29 mmol/L [facility] Anion Gap 12 12 - 20 [facility] Urea Nitrogen (BUN) 19(H) 9 - 16 mg/dL [facility] Creatinine, Serum 0.70 0.5 - 1.4 mg/dL [facility] Creatinine Clr Calc Pharmacy 84.2 [facility] Comment:Provided height and weight: 162.56 cm,78.1 kg.eGFR (calculated from the MDRD study equation) and eCrCl(calculated from the Cockcroft-Gault equation) are based ondifferent parameters and may not yield comparable results.If eCrCl result is absurd, please check patient'sheight/weight. Estimated Glomerular Filt Rate >60 [facility] Comment:Chronic Kidney Disea se: Estimated GFR < 60 mL/min/1.08h4Ixnadz Kidney Disease: Estimated GFR < 15 mL/min/1.73m2 Glucose 99 60 - 115 mg/dL [facility] Calcium 9.6 8.4 - 10.2 mg/dL [facility] Bilirubin, Total 0.3 0.0 - 1.0 mg/dL [facility] Aspartate Amino Transferase 23 5 - 31 U/L [facility] Alanine Aminotransferase 15 0 - 31 U/L [facility] Total Protein 7.4 6.5 - 8.0 g/dL [facility] Albumin Level 4.3 3.5 - 5.0 g/dL [facility] Alkaline Phosphatase 102 39 - 117 U/L [facility] 06/21/2025 1:52 PM EDT 06/21/2025 1:58 PM EDT us Generic External Data Provider LAB BLOOD ORDERAB LES Final Result [facility] [address], [place] [phone] * BI Mammogram Screening Tomosynthesis Bilateral (01/22/2024 2:21 PM EDT) Anatomical Region Laterality Modality Breast Bilateral Mammography 01/22/2024 2:21 PM EDT Narrative 02/21/2024 1:33 PM EDT [address] [place] [address] Mammography Report Signed Patient: Nadege Lee MR#: [id number] : 1960 Acct:[id number] Age/Sex: 63 / F ADM Date: 01/22/24 Loc: MAMMO Attending Dr: Lilly Cowart MD Ordering Physician: Lilly Cowart Results: 1Negative Date of Service: 01/22/24 Follow Up: 1 Year From Orig inal Mammogram Procedure(s): MM tomosynthesis screening BI Accession Number(s): [id number] cc: Lilly Cowart EXAMINATION: MM SCREENING DIGITAL [...] in OV> 02/21/24 1329 DD/ 1421 TD/TT: Concrete Pipe Plant Supervisor: Procedure Note Donotuseinterpreter, Image - 02/21/[address] [place] [address] Mammography Report Signed Patient: Nadege LeeMR#: [id number] : [id number] Age/Sex: 63 / FADM Date: 01/22/24 Loc: MAMMO Attending Dr: Lilly Cowart MD Ordering Physician: Devon Cowartults: 1Negative Date of Service: 01/22/24Follow Up: 1 Year From Orig ina Mammogram Procedure(s): MM tomosynthesis screening BI Accession Number(s): [id number] cc: Lilly Cowart EXAMINATION: MM SCREENING DIGITAL [...] in OV> 02/21/24 1329 DD/ 1421 TD/TT: [employer] P[employer] Plant Supervisor: Lilly Cowart MD IMG BI PROCEDURES Final Result from Last 3 Months or Most Recently Relevant to Health Maintenance Insurance [employer] C3 Care Teams Material Reprocessing Associate Relationship Specialty Start Date End Date Lilly Cowart MD [address] [place] [id number] PCP - General Family Medicine 11/16/21 Elvie Dumont, HENOK [address] [place] [address] Registered Nurse Family Medicine 06/22/25 Viviana Marlow 06/22/25
--- OUTSIDE RECORDS SUMMARY | 2025-07-15 15:40 | XMS_ITS | Encounter Summary ---
Author Organization [email or web address] Address [address] [facility] 7t [place] [address] Care Team Providers Care Bag Checker Name Role Phone Lilly Cowart MD Primary Care Provider [phone] Marc Dahl RN Unavailable [phone] Karla Harrison Unavailable Marc Dahl RN Unavailable Karla Harrison Unavailable Elvie Dumont RN Unavailable [phone] Viviana Marlow Unavailable Reason for Visit * Reason Comments Med Refill Encounter Details Date Type Department Care Team (Late st Contact Info) Description 08/27/2024 Refill [facility] [address] [place], [place] [phone] Lilly Cowart MD [address] [place] [address] Social History Tobacco Use Types Packs/Day Years [...] Description 10/15/2025 11:30 AM EST Clinical Support [facility] [address] [place] [address] Hazel Leyva RN documented as of this encounter Visit Diagnoses Not on filedocumented in this encounter Additional Health Concerns Assessment Noted Time PHQ-9 Depression Total Score: 8 12/27/19 24 3:25 PM EDT documented as of this encounter Care Teams Bag Checker Relationship Specialty Start Date End Date Lilly Cowart MD [address] [place] [address] PCP - General Family Medicine 11/16/21 Marc Dahl, RN [address] [place] [address] Registered Nurse Family Medicine 02/26/25 03/13/25 Karla Harrison 02/26/25 03/13/25 Marc Dahl, RN [address] [place] [address] Registered Nurse Family Medicine 04/13/25 04/13/25 Karla Harrison 04/13/25 04/13/25 Elvie Dumont RN [address] [place] [address] [place] Julian [address] Registered Nurse Family Medicine 06/22/25 Viviana Marlow 06/22/25 documented as of this encounter
--- OUTSIDE RECORDS SUMMARY | 2025-07-15 15:40 | XMS_ITS | Encounter Summary ---
Author Organization [facility] Address [address] [facility] 7t [place] [address] Care Team Providers Care Neurocritical Care Physician Name Role Phone Lilly Cowart MD Primary Care Provider [phone] Marc Dahl RN Unavailable [phone] Karla Harrison Unavailable Marc Dahl RN Unavailable [phone] Karla Harrsion Unavailable Elvie Dumont RN Unavailable [phone] Viviana Marlow Unavailable Reason for Visit * Reason Onset Date Comments Hospital Follow-up 05/17/2023 Encounter Details Date Type Department Care Team (Late st Contact Info) Description 05/17/2023 Telephone [facility] [address] [place], [place] [phone] Lilly Cowart MD [address] [place], [place] [phone] Hospital Follow-up Social History Tobacco Use Types [...] of a HDF. Pt was [place] [facility] [place] and discharged on 05/10 for leg infection, fever, and low blood pressure. Was advised will forward to team nurses for f/u. Please contact pt at [phone] documented in this encounter Plan of Treatment Upcoming Encounters Date Type Department Care Team (Late st Contact Info) Description 10/15/2025 11:30 AM EST Clinical Support [facility] [address] [place] [address] Hazel Leyva, HENOK documented as of this encounter Visit Diagnoses Not on filedocumented in this encounter Care Teams Neurocritical Care Physician Relationship Specialty Start Date End Date Lilly Cowart MD [address] [place] [address] PCP - General Family Medicine 11/16/21 Marc Dahl, RN [address] [place] [address] Registered Nurse Family Medicine 02/26/25 03/13/25 Karla Harrison 02/26/25 03/13/25 Marc Dahl, RN [address] [facility] [place] [address] Registered Nurse Family Medicine 04/13/25 04/13/25 Karla Harrison 04/13/25 04/13/25 Elvie Dumont, RN [address] [facility] [place] [address] Registered Nurse Family Medicine 06/22/25 Viviana Marlow 06/22/25 documented as of this encounter
--- OUTSIDE RECORDS SUMMARY | 2025-07-15 15:40 | XMS_ITS | Encounter Summary ---
Author Organization [employer] Address [address] [facility] 7t [place] [address] Care Team Providers Care Tawer Name Role Phone Lilly Cowart MD Primary Care Provider Marc Dahl RN Unavailable [phone] Karla Harrison Unavailable Marc Dahl RN Unavailable [phone] Karla Harrison Unavailable Elvie Dumont RN Unavailable [phone] Viviana Marlow Unavailable Reason for Visit * Reason Onset Date Comments Durable Medical Equipment 01/11/2024 Encounter Details Date Type Department Care Team (Late st Contact Info) Description 01/11/2024 Telephone [facility] [address] [place], [place] [phone] Lilly Cowart MD [address] [place], [place] [phone] Durable Medical Equipment Social History Tobacco Use [...] the past 12 months, has t he [employer], gas, oil or water [employer]ptake threatened to shut off services in your [...] Description 10/15/2025 11:30 AM EST Clinical Support [facility] [address] [place] [address] Hazel Leyva, HENOK documented as of this encounter Visit Diagnoses Not on filedocumented in this encounter Additional Health Concerns Assessment Noted Time PHQ-9 Depression Total Score: 8 12/27/19 24 3:25 PM EDT documented as of this encounter Care Teams Tawer Relationship Specialty Start Date End Date Lilly Cowart MD [address] [place] [address] PCP - General Family Medicine 11/16/21 Marc Dahl, RN [address] [place] [address] Registered Nurse Family Medicine 02/26/25 03/13/25 Karla Harrison 02/26/25 03/13/25 Marc Dahl, RN [address] [place] [address] Registered Nurse Family Medicine 04/13/25 04/13/25 Karla Harrison 04/13/25 04/13/25 Elvie Dumont RN [address] [place] [address] Registered Nurse Family Medicine 06/22/25 Viviana Marlow 06/22/25 documented as of this encounter
--- OUTSIDE RECORDS SUMMARY | 2025-07-15 15:41 | XMS_ITS ---
Author Organization [employer] Address [address] [facility] 7t [place] [address] Care Team Providers Care Quality Process Auditor Name Role Phone Lilly Cowart MD Primary Care Provider [phone] Elvie Dumont RN Unavailable [phone] Viviana Marlow Unavailable [facility] Complex Status:Outreach In Progress (Enrolling) Start date:06/22/2025 Enrollment reason:ADT Feed Overview ED_ Pt went to [facility] ED on 06/21/25. Please outreach for enrollment. Case Team Name Relationship Phone Viviana Marlow(Responsible Staff) [phone] Continued Care and Services Coordination
--- OUTSIDE RECORDS SUMMARY | 2025-07-15 15:41 | XMS_ITS ---
Author Organization [employer] Address [address] [facility] 7t [place] [address] Care Team Providers Care Bander Operator Name Role Phone Lilly Cowart MD Primary Care Provider [phone] Elvie Dumont RN Unavailable Viviana Marlow Unavailable CM Complex Status:Outreach In Progress (Enrolling) Start date:06/22/2025 Enrollment reason:ADT Feed Overview ED_ Pt went to [facility] ED on 06/21/25. Case Team Name Relationship Phone Elvie Dumont RN(Responsible Staff) Registered Nurse [phone] Continued Care and Services Coordination
--- OUTSIDE RECORDS SUMMARY | 2025-07-15 15:41 | XMS_ITS | Encounter Summary ---
Author Organization [employer] Address [address] [facility] 7t [place] [address] Care Team Providers Care Sample Carrier Name Role Phone Lilly Cowart MD Primary Care Provider [phone] Marc Dahl RN Unavailable [phone] Karla Harrison Unavailable Elvie Dumont RN Unavailable [phone] Viviana Marlow Unavailable Encounter Details Date Type Department Care Team (Late st Contact Info) Description 04/06/2025 Orders Only [facility] [address] [place] [address] Lilly Cowart MD [address] [place], [place] [phone] Social History Tobacco Use Types Packs/Day Years [...] 10/15/2025 11:30 AM EST Clinical Support [facility] [address] [place] [address] Hazel Leyva RN documented as of this encounter Visit Diagnoses Not on filedocumented in this encounter Additional Health Concerns Assessment Noted Time PHQ-9 Depression Total Score: 9 02/14/20 25 8:03 AM EDT documented as of this encounter Care Teams Sample Carrier Relationship Specialty Start Date End Date Lilly Cowart MD [address] [place] [address] PCP - General Family Medicine 11/16/21 Marc Dahl, RN [address] [place] [address] Registered Nurse Family Medicine 04/13/25 04/13/25 Karla Harrison 04/13/25 04/13/25 Elvie Dumont, HENOK [address] [place] [address] Registered Nurse Family Medicine 06/22/25 Viviana Marlow 06/22/25 documented as of this encounter
--- OUTSIDE RECORDS SUMMARY | 2025-07-15 15:41 | XMS_ITS | Encounter Summary ---
Author Organization [employer] Address [address] [facility] [address] [place] [address] Care Team Providers Care Chief Nuclear Medicine Technologist Name Role Phone Lilly Cowart MD Primary Care Provider [phone] Marc Dahl RN Unavailable Karla Harrison Unavailable Marc Dahl RN Unavailable [phone] Karla Harrison Unavailable Elvie Dumont RN Unavailable [phone] Viviana Marlow Unavailable Encounter Details Date Type Department Care Team (Late st Contact Info) Description 08/30/2022 Orders Only [facility] [address] [place] [address] Lindsey Salcedo LPN Social History Tobacco Use [...] Description 10/15/2025 11:30 AM EST Clinical Support [facility] [address] [place] [address] Hazel Leyva RN documented as of this [...] (12/07/2022 11:34 AM EDT) Color Urine Yellow [facility] Appearance Urine Clear [facility] PH 6.5 5.0 - 9.0 [facility] Glucose Urine UA Negative Negative mg/dL [facility] Urine Blood Negative Negative [facility] Specific [place] - Urine >=1.030(H) 1.005 - 1.025 [facility] Urine Protein Negative Neg-Trace mg/dL [facility] Urine Ketones Negative Negative mg/dL [facility] Nitrite Urine Negative Negative [facility] Leukocyte Esterase Urine Negative Negative [facility] RBC Urine 0-2 0 - 2 /HPF [facility] Urine WBC 0-5 0 - 5 /HPF [facility] Urine Squamous Epithelial Cell 0-2 0 - 2 /HPF [facility] Urine Bacteria None Seen None Seen [facility] Hyaline Casts, Urine 0-2 0 - 2 /LPF [facility] 12/07/2022 11:3 4 AM EDT 12/07/2022 11:37 AM EDT Narrative [facility] - 12/07/2022 11:45 AM EDT 1131Urine, Catheterized us [facility] External Provider LAB URI NE ORDERABLES Final Result [facility] [address] [place] [address] [phone] * (ABNORMAL) Comprehensive Metabolic Panel, Fasting (12/07/2022 9:57 AM EDT) Sodium 140 135 - 145 mmol/L [facility] Potassium 4.0 3.3 - 5.1 mmol/L [facility] Chloride 108 96 - 108 mmol/L [facility] Carbon Dioxide 21(L) 22 - 29 mmol/L [facility] Anion Gap 15 12 - 20 [facility] Urea Nitrogen (BUN) 14 9 - 16 mg/dL [facility] Creatinine, Serum 0.79 0.5 - 1.4 mg/dL [facility] Creatinine Clr Calc Pharmacy 76.2 [facility] Comment:Provided height and weight: 162.56 cm,77.564 kg.eGFR (calculated from the MDRD study equation) and eCrCl(calculated from the Cockcroft-Gault equation) are based ondifferent parameters and may not yield comparable results.If eCrCl result is absurd, please check patient'sheight/weight. Estimated Glomerular Filt Rate >60 [facility] Comment:NOTE: For -Am erican individuals, multiply the result by 1.210.Chronic Kidney Disease: Estimated GFR < 60 mL/min/1.66r6Inasqn Kidney Disease: Estimated GFR < 15 mL/min/1.73m2 Glucose Fasting 88 60 - 99 mg/dL [facility] Calcium 9.7 8.4 - 10.2 mg/dL [facility] Bilirubin, Total 0.4 0.0 - 1.0 mg/dL [facility] Aspartate Amino Transferase 17 5 - 31 U/L [facility] Alanine Aminotransferase 17 0 - 31 U/L [facility] Total Protein 7.3 6.5 - 8.0 g/dL [facility] Albumin Level 4.2 3.5 - 5.0 g/dL [facility] Alkaline Phosphatase 92 39 - 117 U/L [facility] 12/07/2022 9:57 AM EDT 12/07/2022 10:02 AM EDT us [facility] External Provider LAB BLO OD ORDERABLES Final Result [facility] [address] [place] [address] [phone] * (ABNORMAL) CBC auto differential (12/07/2022 9:57 AM EDT) White Blood Count 8.3 4.8 - 10.8 X10*3/uL [facility] Red Blood Count 4.29 4.20 - 5.50 X10*6/uL [facility] Hemoglobin 10.2(L) 12.0 - 16.0 g/dl [facility] Hematocrit 33.5(L) 37.0 - 47.0 % [facility] Mean Corpuscular Volume 78.1(L) 80.0 - 98.0 fL [facility] Mean Corpuscular Hemoglobin 23.8(L) 27.0 - 33.0 pg [facility] Mean Corpuscular HGB Conc 30.4(L) 31.0 - 35.0 g/dl [facility] Red Cell Distribution Width 17.2(H) 11.0 - 16.0 % [facility] Platelet Count 284 160 - 400 X10*3/uL [facility] Mean Platelet Volume 10.3 9.4 - 12.3 fL [facility] Neutrophils Percent Auto 45.6 45 - 73 % [facility] Imm Gran Pct Auto 0.2 0.0 - 0.4 % [facility] Lymphocytes Percent Auto 42.9(H) 20 - 40 % [facility] Monocytes Percent Auto 7.2 2 - 11 % [facility] Eosinophils Percent Auto 3.6 0 - 4 % [facility] Basophils Percent Auto 0.5 0 - 2 % [facility] NRBC Pct Auto 0.0 0.0 - 0.2 /100WBC [facility] Neutrophils Absolute Auto 3.8 2.0 - 8.3 x10*3/uL [facility] Imm Gran Abs Auto 0.02 0.00 - 0.03 X10*3/uL [facility] Lymphocytes Absolute Auto 3.6 1.2 - 4.9 X10*3/uL [facility] Monocytes Absolute Auto 0.6 0.1 - 1.2 X10*3/uL [facility] Eosinophils Absolute Auto 0.3 0.0 - 0.4 X10*3/uL [facility] Basophils Absolute Auto 0.0 0.0 - 0.2 X10*3/uL [facility] NRBC Abs Auto 0.000 0.0 - 0.012 X10*3/uL [facility] 12/07/2022 9:57 AM EDT 12/07/2022 10:02 AM EDT us [facility] External Provider LAB BLO OD ORDERABLES Final Result [facility] [address] [place] [address] [phone] * (ABNORMAL) Comprehensive Metabolic Panel (10/23/2022 10:53 AM EST) Sodium 139 135 - 145 mmol/L [facility] Potassium 4.3 3.3 - 5.1 mmol/L [facility] Chloride 108 96 - 108 mmol/L [facility] Carbon Dioxide 23 22 - 29 mmol/L [facility] Anion Gap 12 12 - 20 [facility] Urea Nitrogen (BUN) 18(H) 9 - 16 mg/dL [facility] Creatinine, Serum 0.87 0.5 - 1.4 mg/dL [facility] Creatinine Clr Calc Pharmacy 67.1 [facility] Comment:Provided height and weight: 162.56 cm,72.575 kg.eGFR (calculated from the MDRD study equation) and eCrCl(calculated from the Cockcroft-Gault equation) are based ondifferent parameters and may not yield comparable results.If eCrCl result is absurd, please check patient'sheight/weight. Estimated Glomerular Filt Rate >60 [facility] Comment:NOTE: For -Am erican individuals, multiply the result by 1.210.Chronic Kidney Disease: Estimated GFR < 60 mL/min/1.66p7Weaukf Kidney Disease: Estimated GFR < 15 mL/min/1.73m2 Glucose 82 60 - 115 mg/dL [facility] Calcium 9.5 8.4 - 10.2 mg/dL [facility] Bilirubin, Total 0.3 0.0 - 1.0 mg/dL [facility] Aspartate Amino Transferase 17 5 - 31 U/L [facility] Alanine Aminotransferase 23 0 - 31 U/L [facility] Total Protein 7.1 6.5 - 8.0 g/dL [facility] Albumin Level 4.1 3.5 - 5.0 g/dL [facility] Alkaline Phosphatase 104 39 - 117 U/L [facility] 10/23/2022 10:5 3 AM EST 10/23/2022 10:56 AM EST us [facility] External Provider LAB BLO OD ORDERABLES Final Result [facility] [address] [place] [address] [phone] * (ABNORMAL) CBC auto differential (10/23/2022 10:53 AM EST) White Blood Count 9.5 4.8 - 10.8 X10*3/uL [facility] Red Blood Count 4.38 4.20 - 5.50 X10*6/uL [facility] Hemoglobin 10.5(L) 12.0 - 16.0 g/dl [facility] Hematocrit 34.5(L) 37.0 - 47.0 % [facility] Mean Corpuscular Volume 78.8(L) 80.0 - 98.0 fL [facility] Mean Corpuscular Hemoglobin 24.0(L) 27.0 - 33.0 pg [facility] Mean Corpuscular HGB Conc 30.4(L) 31.0 - 35.0 g/dl [facility] Red Cell Distribution Width 17.2(H) 11.0 - 16.0 % [facility] Platelet Count 319 160 - 400 X10*3/uL [facility] Mean Platelet Volume 10.6 9.4 - 12.3 fL [facility] Neutrophils Percent Auto 49.3 45 - 73 % [facility] Imm Gran Pct Auto 0.3 0.0 - 0.4 % [facility] Lymphocytes Percent Auto 38.4 20 - 40 % [facility] Monocytes Percent Auto 7.9 2 - 11 % [facility] Eosinophils Percent Auto 3.4 0 - 4 % [facility] Basophils Percent Auto 0.7 0 - 2 % [facility] NRBC Pct Auto 0.0 0.0 - 0.2 /100WBC [facility] Neutrophils Absolute Auto 4.7 2.0 - 8.3 x10*3/uL [facility] Imm Gran Abs Auto 0.03 0.00 - 0.03 X10*3/uL [facility] Lymphocytes Absolute Auto 3.6 1.2 - 4.9 X10*3/uL [facility] Monocytes Absolute Auto 0.8 0.1 - 1.2 X10*3/uL [facility] Eosinophils Absolute Auto 0.3 0.0 - 0.4 X10*3/uL [facility] Basophils Absolute Auto 0.1 0.0 - 0.2 X10*3/uL [facility] NRBC Abs Auto 0.000 0.0 - 0.012 X10*3/uL [facility] 10/23/2022 10:5 3 AM EST 10/23/2022 10:56 AM EST [facility] External Provider LAB BLO OD ORDERABLES Final Result Performing Organization Address [facility] Co de Phone Number [facility] [address] [place] [address] [phone] * SARS-CoV-2 RNA, Influenza A/B, and RSV RNA, Ql NAAT (10/11/2022 11:39 AM EST) Pathologist [facility] Influenza A PCR NEGATIVE Negative [facility] Influenza B PCR NEGATIVE Negative [facility] Resp Syncy Virus RNA Qual PCR NEGATIVE Negative [facility] SARS COV2 PCR NEGATIVE Negative [facility] SARS/Flu/RSV Note See Note [facility] Comment:All test results mus t [...] use by authorized laboratories.Testing performed on the [employer] GeneXpert utilizingreal-time RT-PCR.All SARS CoV2 and positive influenza A/B results arereported to [facility]. 10/11/2022 11:3 9 AM EST 10/11/2022 11:44 AM EST [facility] Exter nal Provider LAB MICROBIOLOGY - GENERAL ORDERABLES Final Result Performing Organization Address [facility]/ZIP Co de Phone Number [facility] [address] [place] [address] [phone] * Lactic Acid (10/11/2022 11:39 AM EST) Pathologist [facility] Lactic Acid 1.0 0.5 - 2.0 mmol/L [facility] 10/11/2022 11:3 9 AM EST 10/11/2022 11:44 AM EST [facility] External Provider LAB BLO OD ORDERABLES Final Result Performing Organization Address City/[facility]/ZIP Co de Phone Number [facility] [address] [place] [phone] * Magnesium (10/11/2022 11:38 AM EST) [facility] Magnesium 1.8 1.6 - 2.6 mg/dL [facility] 10/11/2022 11:3 8 AM EST 10/11/2022 11:44 AM EST [facility] External Provider LAB BLO OD ORDERABLES Final Result Performing Organization Address City/[facility] Co de Phone Number [facility] [address] [place] [phone] * Comprehensive Metabolic Panel (10/11/2022 11:38 AM EST) [facility] Sodium 140 135 - 145 mmol/L [facility] Potassium 3.9 3.3 - 5.1 mmol/L [facility] Chloride 108 96 - 108 mmol/L [facility] Carbon Dioxide 22 22 - 29 mmol/L [facility] Anion Gap 14 12 - 20 [facility] Urea Nitrogen (BUN) 16 9 - 16 mg/dL [facility] Creatinine, Serum 0.70 0.5 - 1.4 mg/dL [facility] Creatinine Clr Calc Pharmacy 83.4 [facility] Comment:Provided height and weight: 162.56 cm,72.575 kg.eGFR (calculated from the MDRD study equation) and eCrCl(calculated from the Cockcroft-Gault equation) are based ondifferent parameters and may not yield comparable results.If eCrCl result is absurd, please check patient'sheight/weight. Estimated Glomerular Filt Rate >60 [facility] Comment:NOTE: For -Am erican individuals, multiply the result by 1.210.Chronic Kidney Disease: Estimated GFR < 60 mL/min/1.86i4Susqxk Kidney Disease: Estimated GFR < 15 mL/min/1.73m2 Glucose 86 60 - 115 mg/dL [facility] Calcium 9.5 8.4 - 10.2 mg/dL [facility] Bilirubin, Total 0.3 0.0 - 1.0 mg/dL [facility] Aspartate Amino Transferase 20 5 - 31 U/L [facility] Alanine Aminotransferase 19 0 - 31 U/L [facility] Total Protein 7.3 6.5 - 8.0 g/dL [facility] Albumin Level 4.1 3.5 - 5.0 g/dL [facility] Alkaline Phosphatase 114 39 - 117 U/L [facility] 10/11/2022 11:3 8 AM EST 10/11/2022 11:44 AM EST [facility] External Provider LAB BLO OD ORDERABLES Final Result Performing Organization Address City/State/[facility] Co de Phone Number [facility] [address] [place] [phone] * Prothrombin Time-INR (10/11/2022 11:38 AM EST) Prothrombin Time 11.5 10.0 - 13.1 SEC [facility] INTERNATIONAL NORM RATIO 1.0 0.9 - 1.1 [facility] Comment:INTERNATIONAL NORMAL IZED RATIO (INR) [...] AM EST 10/11/2022 11:44 AM EST us [facility] External Provider LAB BLO OD ORDERABLES Final Result [facility] [address] [place] [address] [phone] * (ABNORMAL) CBC auto differential (10/11/2022 11:38 AM EST) White Blood Count 12.0(H) 4.8 - 10.8 X10*3/uL [facility] Red Blood Count 4.60 4.20 - 5.50 X10*6/uL [facility] Hemoglobin 11.0(L) 12.0 - 16.0 g/dl [facility] Hematocrit 36.0(L) 37.0 - 47.0 % [facility] Mean Corpuscular Volume 78.3(L) 80.0 - 98.0 fL [facility] Mean Corpuscular Hemoglobin 23.9(L) 27.0 - 33.0 pg [facility] Mean Corpuscular HGB Conc 30.6(L) 31.0 - 35.0 g/dl [facility] Red Cell Distribution Width 16.9(H) 11.0 - 16.0 % [facility] Platelet Count 246 160 - 400 X10*3/uL [facility] Mean Platelet Volume 10.3 9.4 - 12.3 fL [facility] Neutrophils Percent Auto 69.8 45 - 73 % [facility] Imm Gran Pct Auto 0.3 0.0 - 0.4 % [facility] Lymphocytes Percent Auto 21.8 20 - 40 % [facility] Monocytes Percent Auto 5.8 2 - 11 % [facility] Eosinophils Percent Auto 2.0 0 - 4 % [facility] Basophils Percent Auto 0.3 0 - 2 % [facility] NRBC Pct Auto 0.0 0.0 - 0.2 /100WBC [facility] Neutrophils Absolute Auto 8.4(H) 2.0 - 8.3 x10*3/uL [facility] Imm Gran Abs Auto 0.04(H) 0.00 - 0.03 X10*3/uL [facility] Lymphocytes Absolute Auto 2.6 1.2 - 4.9 X10*3/uL [facility] Monocytes Absolute Auto 0.7 0.1 - 1.2 X10*3/uL [facility] Eosinophils Absolute Auto 0.2 0.0 - 0.4 X10*3/uL [facility] Basophils Absolute Auto 0.0 0.0 - 0.2 X10*3/uL [facility] NRBC Abs Auto 0.000 0.0 - 0.012 X10*3/uL [facility] 10/11/2022 11:3 8 AM EST 10/11/2022 11:44 AM EST us [facility] External Provider LAB BLO OD ORDERABLES Final Result Performing Organization Address City/State/[facility] Co de Phone Number [facility] [address] [place] [phone] documented in this encounter Visit Diagnoses Not on filedocumented in this encounter Care Teams Chief Nuclear Medicine Technologist Relationship Specialty Start Date End Date Lilly Cowart MD [address] [place] [phone] PCP - General Family Medicine 11/16/21 Marc Dahl RN [address] [place] [address] Registered Nurse Family Medicine 02/26/25 03/13/25 Karla Harrison 02/26/25 03/13/25 Marc Dahl RN [address] [place] [address] Registered Nurse Family Medicine 04/13/25 04/13/25 Karla Harrison 04/13/25 04/13/25 Elvie Dumont RN [address] [place] [phone] Registered Nurse Family Medicine 06/22/25 Viviana Marlow 06/22/25 documented as of this encounter
--- OUTSIDE RECORDS SUMMARY | 2025-07-15 15:41 | XMS_ITS | Encounter Summary ---
Author Organization [employer] Address [address] [facility] [address] [place] [address] Care Team Providers Care Account Manager B2B Name Role Phone Lilly Cowart MD Primary Care Provider [phone] Marc Dahl RN Unavailable [phone] Karla Harrison Unavailable Marc Dahl RN Unavailable [phone] Karla Harrison Unavailable Elvie Dumont RN Unavailable [phone] Viviana Marlow Unavailable Reason for Visit * Reason Comments Med Refill Encounter Details Date Type Department Care Team (Late st Contact Info) Description 11/01/2022 Refill [facility] [address] [place] [address] Bouchra Pacheco MD [address] [place], [place] [phone] Cellulitis of right lower limb Social History [...] Description 10/15/2025 11:30 AM EST Clinical Support [facility] [address] [place] [address] Hazel Leyva, HENOK documented as of this encounter Visit Diagnoses Diagnosis Cellulitis of right lower limb documented in this encounter Care Teams Account Manager B2B Relationship Specialty Start Date End Date Lilly Cowart MD [address] [place] [address] PCP - General Family Medicine 11/16/21 Marc Dahl, RN [address] [facility] [place] [address] Registered Nurse Family Medicine 02/26/25 03/13/25 Karla Harrison 02/26/25 03/13/25 Marc Dahl, HENOK [address] [facility] [place] [address] Registered Nurse Family Medicine 04/13/25 04/13/25 Karla Harrison 04/13/25 04/13/25 Elvie Dumont, HENOK [address] [facility] [place] [address] Registered Nurse Family Medicine 06/22/25 Viviana Marlow 06/22/25 documented as of this encounter
--- OUTSIDE RECORDS SUMMARY | 2025-07-15 15:41 | XMS_ITS | Encounter Summary ---
Author Organization [employer] Address [address] [facility] [address] [place] [address] Care Team Providers Care [employer] Name Role Phone Lilly Cowart MD Primary Care Provider [phone] Elvie Dumont RN Unavailable [phone] Viviana Marlow Unavailable Reason for Visit * Reason Onset Date Comments chart prep 07/14/2025 Encounter Details Date Type Department Care Team (Late st Contact Info) Description 07/14/2025 Telephone [facility] [address] [place] [address] Lilly Cowart MD [address] [place] [address] chart prep Social History Tobacco Use Types Packs/Day Years [...] Telephone Encounter - Warren Pugh [place] - 07/14/2025 3:24 PM EDT Chart Prep Labs: done Images: done Referrals: complete Vaccines due: Covid, Flu, PCV20, RSV, and Zoster Screenings: colonoscopy and mammogram Overdue care gaps: Not applicable documented in this encounter Plan of Treatment Upcoming Encounters Date Type Department Care Team (Late st Contact Info) Description 10/15/2025 11:30 AM EST Clinical Support [facility] [address] [place] [address] Hazel Leyva, HENOK documented as of this encounter Visit Diagnoses Not on filedocumented in this encounter Additional Health Concerns Assessment Noted Time PHQ-9 Depression Total Score: 9 02/14/20 25 8:03 AM EDT documented as of this encounter Care Teams [employer] Relationship Specialty Start Date End Date Lilly Cowart MD [address] [place] [address] PCP - General Family Medicine 11/16/21 Elvie Dumont, HENOK [address] [place] [phone] Registered Nurse Family Medicine 06/22/25 Viviana Marlow 06/22/25 documented as of this encounter
--- OUTSIDE RECORDS SUMMARY | 2025-07-15 15:41 | XMS_ITS | Encounter Summary ---
Author Organization [employer] Address 75 [facility] 7t [place] [address] Care Team Providers Care Channel Executive Name Role Phone Lilly Cowart MD Primary Care Provider [phone] Marc Dahl RN Unavailable [phone] Karla Harrison Unavailable Marc Dahl RN Unavailable [phone] Karla Harrison Unavailable Elvie Dumont RN Unavailable [phone] Viviana Marlow Unavailable Reason for Visit * Reason Comments Med Refill Encounter Details Date Type Department Care Team (Late st Contact Info) Description 10/29/2022 Refill [facility] [address] [place] [address] Bouchra Pacheco MD [address] [place], [place] [phone] Cellulitis of right lower limb Social History [...] Description 10/15/2025 11:30 AM EST Clinical Support [facility] [address] [place] [address] Hazel Leyva, HENOK documented as of this encounter Visit Diagnoses Diagnosis Cellulitis of right lower limb documented in this encounter Care Teams Channel Executive Relationship Specialty Start Date End Date Lilly Cowart MD [address] [place] [address] PCP - General Family Medicine 11/16/21 Marc Dahl, RN [address] [facility] [place] [address] Registered Nurse Family Medicine 02/26/25 03/13/25 Karla Harrison 02/26/25 03/13/25 Marc Dahl, HENOK [address] [facility] [place] [address] Registered Nurse Family Medicine 04/13/25 04/13/25 Karla Harrison 04/13/25 04/13/25 Elvie Dumont, HENOK [address] [facility] [place] [address] Registered Nurse Family Medicine 06/22/25 Viviana Marlow 06/22/25 documented as of this encounter
[2025-07-16 05:01] LABS: Bacterial Vaginosis PCR POSITIVE (Negative); Candida Group PCR NOT DETECTED (Not Detect); Candida glab krusei PCR DETECTED (Not Detect); Trichomonas vaginalis PCR NOT DETECTED (Not Detect)
[2025-07-16 05:14] LABS: CT PCR NOT DETECTED (Not Detect.); NG PCR NOT DETECTED (Not Detect.)
== END 2025-07-15 12:18 | disposition home or self-care (01) ==
LOC: HO.HHCX 12:17
PROVIDERS: PCP General Practice; Visit Provider General Practice
DX: R10.20 Pelvic and perineal pain unspecified side (principal); M54.50 Low back pain, unspecified; G89.29 Other chronic pain
CPT/HCPCS: 72100; 81515; 87491; 87591

== ENCOUNTER → 2025-07-15 12:22 | Outpatient (BNV) | payer MEDICAID, SELFPAY | PROVIDERS: PCP General Practice; Visit Provider Radiology Diagnostic Radiology | DX: M47.817 Spondylosis without myelopathy or radiculopathy, lumbosacral region (principal); M47.897 Other spondylosis, lumbosacral region | CPT/HCPCS: 72100 ==

== ENCOUNTER 2025-08-16 22:22 | Emergency (ER) | payer MEDICAID, SELFPAY ==
[2025-08-16 22:25] VITALS: BP 174/84; PULSE 86; RESP 18; TEMP 36.5; O2SAT 97; BMI 30.7
[2025-08-16 23:07] VITALS: BP 176/88; PULSE 87; RESP 17; TEMP 36.7; O2SAT 97
--- OUTSIDE RECORDS SUMMARY | 2025-08-16 23:18 | XMS_ITS | Clinical Summary ---
Author Organization [facility] Address [address] [place] [address] Care Team Providers Care Senior Advisor Name Role Phone Unavailable Primary Care Provider [...] Depression Screening 09/17/2024 COVID-19 Vaccine (1 - 2024-2 6 season) 2025 Influenza Vaccine (#1) 2025 RSV [...]
--- OUTSIDE RECORDS SUMMARY | 2025-08-16 23:18 | XMS_ITS | Encounter Summary ---
Author Organization [employer] Address 75 [facility] 7t [place] [address] Care Team Providers Care Head Piece Assembler Name Role Phone Lilly Cowart MD Primary Care Provider [phone] Marc Dahl RN Unavailable [phone] Karla Harrison Unavailable Marc Dahl RN Unavailable [phone] Karla Harrison Unavailable Elvie Dumont RN Unavailable [phone] Viviana Marlow Unavailable Reason for Visit * Reason Comments Med Refill Encounter Details Date Type Department Care Team (Late st Contact Info) Description 11/01/[address] [facility] [address] [place] [address] Bouchra Pacheco MD 505 [place], [place] [phone] Cellulitis of right lower limb Social History [...] Description 10/15/2025 11:30 AM EST Clinical Support [facility] [address] [place] [address] Hazel Leyva RN 10/16/2025 11:15 AM EST Office Visit [facility] [address] [facility] [place], [place] [phone] Lilly Cowart MD [address] [facility] [place], [place] [phone] documented as of this encounter Visit Diagnoses Diagnosis Cellulitis of right lower limb documented in this encounter Care Teams Head Piece Assembler Relationship Specialty Start Date End Date Lilly Cowart MD [address] [facility] [place], [place] [phone] PCP - General Family Medicine 11/16/21 Marc Dahl, RN [address] [facility] [place] [address] Registered Nurse Family Medicine 02/26/25 03/13/25 Karla Harrison 02/26/25 03/13/25 Marc Dahl, RN 505 [facility] [place] [address] Registered Nurse Family Medicine 04/13/25 04/13/25 Karla Harrison 04/13/25 04/13/25 Elvie Dumont, HENOK [address] [place] [address] Registered Nurse Family Medicine 06/22/25 07/20/25 Viviana Marlow 06/22/25 07/20/25 documented as of this encounter
--- OUTSIDE RECORDS SUMMARY | 2025-08-16 23:18 | XMS_ITS | Encounter Summary ---
Author Organization [employer] Address 75 [facility] 7t [place] [address] Care Team Providers Care Mud Car Worker Name Role Phone Lilly Cowart MD Primary Care Provider [phone] Marc Dahl RN Unavailable [phone] Karla Harrison Unavailable Marc Dahl RN Unavailable [phone] Karla Harrison Unavailable Elvie Dumont RN Unavailable [phone] Viviana Marlow Unavailable Encounter Details Date Type Department Care Team (Late st Contact Info) Description 01/23/[address] [facility] [address] [place] [address] Lilly Cowart MD [address] [place] [address] Social History Tobacco Use Types Packs/Day Years [...] Description 10/15/2025 11:30 AM EST Clinical Support [address] [address] Hazel Leyva RN 10/16/2025 11:15 AM EST Office Visit [address] [address] Lilly Cowart MD [address] [place] [address] documented as of this encounter Procedures Procedure Name Priority Date/Time Associated Diagnosis Comments FL GUIDANCE IN TREATMENT ROOM Routine 01/31/2024 2:45 PM EDT documented in this encounter Results * FL Guidance in Treatment Room (01/31/2024 2:45 PM EDT) Anatomical Region Laterality Modality X-Ray Angiograph y 01/31/2024 2:45 PM EDT Narrative 04/05/2024 6:59 AM EDT [address] [address] Fluoroscopy Report Signed Patient: Nadege Lee MR#: [id number] : 1960 Acct:[id number] Age/Sex: 63 / F ADM Date: 01/31/24 Loc: CF Attending Dr: Yvon Rodriguez MD Ordering Physician: Rut Heaton APRN, CNP Date of Service: 01/31/24 Procedure(s): FL guidance in treatment room Accession Number(s): [id number] cc: Rut Heaton APRN, VENU; Lilly Cowart [...] in OV> 04/05/24 0655 DD/ 1445 TD/TT: Test Desk Supervisor: Procedure Note Donotuseinterpreter, Image - 04/05/[address] [address] Fluoroscopy Report Signed Patient: Taty Lee#: [id number] : 1960cct:[id number] Age/Sex: 63 / FADM Date: 01/31/24 Loc: CF Attending Dr: Yvon Rodriguez MD Ordering Physician: Rut Heaton APRN, CNP Date of Service: 01/31/24 Procedure(s): FL guidance in treatment room Accession Number(s): [id number] cc: Rut Heaton APRN, GROCERY SUPERVISOR; Lilly Cowart EXAMINATION: XR FLUOROSCOPY WITH IMAGES [...] in OV> 04/05/24 0655 DD/ 1445 TD/TT: Test Desk Supervisor: [facility] External Provider IMG IR PROCEDURES Final Result documented in this encounter Visit Diagnoses Not on filedocumented in this encounter Additional Health Concerns Assessment Noted Time PHQ-9 Depression Total Score: 8 12/27/19 24 3:25 PM EDT documented as of this encounter Care Teams Mud Car Worker Relationship Specialty Start Date End Date Lilly Cowart MD [address] [place] [address] PCP - General Family Medicine 11/16/21 Marc Dahl RN [address] [place] [address] Registered Nurse Family Medicine 02/26/25 03/13/25 Karla Harrison 02/26/25 03/13/25 Marc Dahl RN [address] [place] [address] Registered Nurse Family Medicine 04/13/25 04/13/25 Karla Harrison 04/13/25 04/13/25 Elvie Dumont RN [address] [place] [address] Registered Nurse Family Medicine 06/22/25 07/20/25 Viviana Marlow 06/22/25 07/20/25 documented as of this encounter
--- OUTSIDE RECORDS SUMMARY | 2025-08-16 23:18 | XMS_ITS | Encounter Summary ---
Author Organization [facility] Address 75 [facility] 7t [place] [address] Care Team Providers Care Warehouse Engineer Name Role Phone Lilly Cowart MD Primary Care Provider [phone] Marc Dahl RN Unavailable [phone] Karla Harrison Unavailable Marc Dahl RN Unavailable [phone] Karla Harrison Unavailable Elvie Dumont RN Unavailable [phone] Viviana Marlow Unavailable Encounter Details Date Type Department Care Team (Late Contact Info) Description 05/25/2023 Abstract [facility] [address] [place] [address] Lilly Cowart MD [address] [place], [place] [phone] Social History Tobacco Use Types Packs/Day Years [...] Description 10/15/2025 11:30 AM EST Clinical Support [facility] [address] [place] [address] Hazel Leyva RN 10/16/2025 11:15 AM EST Office Visit [facility] [address] [place] [address] Lilly Cowart MD [address] [place], [place] [phone] documented as of this encounter Visit Diagnoses Not on filedocumented in this encounter Care Teams Warehouse Engineer Relationship Specialty Start Date End Date Lilly Cowart MD [address] [place], [place] [phone] PCP - General Family Medicine 11/16/21 Marc Dahl, RN 505 [facility] [place] [address] Registered Nurse Family Medicine 02/26/25 03/13/25 Karla Harrison 02/26/25 03/13/25 Marc Dahl, RN 505 [facility] [place] [address] Registered Nurse Family Medicine 04/13/25 04/13/25 Karla Harrison 04/13/25 04/13/25 Elvie Dumont, HENOK 505 [place] [address] Registered Nurse Family Medicine 06/22/25 07/20/25 Viviana Marlow 06/22/25 07/20/25 documented as of this encounter
--- OUTSIDE RECORDS SUMMARY | 2025-08-16 23:18 | XMS_ITS | Encounter Summary ---
Author Organization [employer] Address 75 [facility] 7t [place] [address] Care Team Providers Care Educational Consultant Name Role Phone Lilly Cowart MD Primary Care Provider [phone] Marc Dahl RN Unavailable [phone] Karla Harrison Unavailable Marc Dahl RN Unavailable [phone] Karla Harrison Unavailable Elvie Dumont RN Unavailable [phone] Viviana Marlow Unavailable Reason for Visit * Reason Onset Date Comments Durable Medical Equipment 01/11/2024 Encounter Details Date Type Department Care Team (Late st Contact Info) Description 01/11/2024 Telephone [facility] [address] [place], [place] [phone] Lilly Cowart MD [address] [place], [place] [phone] Durable Medical Equipment Social History Tobacco Use [...] the past 12 months, has t he [employer] gas, oil or water [employer] threatened to shut off services in your [...] Description 10/15/2025 11:30 AM EST Clinical Support [address] [address] Hazel Leyva RN 10/16/2025 11:15 AM EST Office Visit [facility] [address] [place] [address] Lilly Cowart MD [address] [place] [address] documented as of this encounter Visit Diagnoses Not on filedocumented in this encounter Additional Health Concerns Assessment Noted Time PHQ-9 Depression Total Score: 8 12/27/19 24 3:25 PM EDT documented as of this encounter Care Teams Educational Consultant Relationship Specialty Start Date End Date Lilly Cowart MD [address] [place] [address] PCP - General Family Medicine 11/16/21 Marc Dahl, RN 505 [facility] [place] [address] Registered Nurse Family Medicine 02/26/25 03/13/25 Karla Harrison 02/26/25 03/13/25 Marc Dahl, RN 505 [place], [place] [phone] Registered Nurse Family Medicine 04/13/25 04/13/25 Karla Harrison 04/13/25 04/13/25 Elvie Dumont, HENOK 505 [facility] [place] [address] Registered Nurse Family Medicine 06/22/25 07/20/25 Viviana Marlow 06/22/25 07/20/25 documented as of this encounter
--- OUTSIDE RECORDS SUMMARY | 2025-08-16 23:18 | XMS_ITS | Encounter Summary ---
Author Organization [email or web address] Address 75 [facility] 7t [place] [address] Care Team Providers Care Grease Maker Name Role Phone Lilly Cowart MD Primary Care Provider [phone] Elvie Dumont RN Unavailable [phone] Viviana Marlow Unavailable Encounter Details Date Type Department Care Team (Late st Contact Info) Description 07/16/2025 Results Follow-Up [facility] [address] [place] [address] Lora Monreal RN [address] [place] [address] Bacterial Vaginosis Panel, Chlamydia/N. Gonorrhoeae RNA, TMA, Urogenitial, POCT CRISTÓBAL-14 Urine Drug Screen Social History Tobacco Use Types Packs/Day Years [...] as of this encounter Miscellaneous Notes * Result Encounter Note - Lilly Cowart MD - 07/16/2025 2:34 PM EDT Thank you for Lora! DME scripts requested for night splints and heating pad, oral treatment sent for yeast and BV * Telephone Encounter - Lora Monreal RN - 07/16/2025 2:25 PM EDT T/C to pt. Advised of message from PCP re: test results. Pt states she prefers oral treatment. Pt also requests that reminder be sent to pcp. Reports that pcp agreed to send bilateral hand braces aidna heating pad for her back to [place]. Advised will forward request. * Telephone Encounter - Lora Monreal RN - 07/16/2025 2:21 PM EDT ----- Message from Lilly Cowart MD sent at 07/16/2025 10:57 AM EDT ----- Please lt Nadege know that she is positive for BV and yeast, would she like oral or intravaginal treatment? ----- Message ----- From: Hazel Leyva RN Sent: 07/15/2025 12:13 PM EDT To: Lilly Cowart MD documented in this encounter Plan of Treatment Upcoming Encounters Date Type Department Care Team (Late st Contact Info) Description 10/15/2025 11:30 AM EST Clinical Support [address] [address] Hazel Leyva, HENOK 10/16/2025 11:15 AM EST Office Visit [address] [address] Lilly Cowart MD [address] [place] [address] documented as of this encounter Visit Diagnoses Not on filedocumented in this encounter Additional Health Concerns Assessment Noted Time PHQ-9 Depression Total Score: 9 02/14/20 8:03 AM EDT documented as of this encounter Care Teams Grease Maker Relationship Specialty Start Date End Date Lilly Cowart MD [address] [place] [address] PCP - General Family Medicine 11/16/21 Elvie Dumont, HENOK [address] [place] [address] Registered Nurse Family Medicine 06/22/25 07/20/25 Viviana Marlow 06/22/25 07/20/25 documented as of this encounter
--- OUTSIDE RECORDS SUMMARY | 2025-08-16 23:18 | XMS_ITS | Clinical Summary ---
Author Organization [employer] Address [address] [facility] [address] [place] [address] Care Team Providers Care Travel Registered Nurse Pacu Name Role Phone Lilly Cowart MD Primary Care Provider [phone] Allergies Active Allergy Reactions Criticality Noted Date Comments Buspirone Other reaction(s): tongue tingles, unclear Butalbital 07/28/2013 Other reaction(s): dizziness & headache got worse Ibuprofen Swelling Other reaction(s): Zomig Paroxetine 05/05/2014 Other reaction(s): headache, tongue tingling Zolmitriptan 09/04/2022 Medications Blood Pressure Monitoring (Omron 3 Series BP Monitor) device USE TO CHECK BLOOD PRESSURE DAILY DIRECTED 2 Active nicotine (Nicoderm CQ) 21 MG/24HR patchIndications: Smoker Apply 1 patch on the skin (one) time each day at the same time x 6 weeks. 42 patch 5 Active rosuvastatin (Crestor) 5 MG tabletIndications :Vertebral artery stenosis, bilateral Take 1 tablet (5 mg) by mouth at bedtime. 90 tablet 3 08/07/2025 4:19 PM EST 5 07/15/20 26 Active Multiple Vitamins-Minerals (CertaVite/Antiox idants) tabletIndications :Malignant neoplasm of endocervix (CMS/HCC) (HCC) Take 1 tablet by mouth in the morning. 90 tablet 3 5 Active metoprolol succinate XL (Toprol-XL) 25 MG 24 hr tablet Take 1 tablet (25 mg) by mouth Once per day. Do not crush or chew. 90 tablet 4 08/07/2025 4:19 PM EST 5 Active melatonin 5 MG tablet Take 2 tablets (10 mg) by mouth if needed at bedtime (insomnia). 180 tablet 3 Active lisinopril 40 MG tablet Take 1 tablet (40 mg) by mouth Once per day. 90 tablet 3 08/07/2025 4:19 PM EST Active Heating Pads pads Apply 1 each topically if needed each day (low back frandy). 1 each Active ferrous gluconate (Fergon) 324 (38 Fe) MG tabletIndications :Anemia, unspecified type Take 1 tablet (324 mg) by mouth with breakfast. 90 tablet 3 5 07/15/20 26 Active DULoxetine (Cymbalta) [address] capsuleIndication s:Chronic pain of right knee Take 1 capsule (60 mg) by mouth Once per day. Do not crush or chew. 90 capsule 3 08/07/2025 4:19 PM EST Active aspirin (ASPIR) 81 MG EC tabletIndications :Vertebral artery stenosis, bilateral Take 1 tablet (81 mg) by mouth Once per day. 90 tablet 3 08/07/2025 4:19 PM EST 5 07/15/20 26 Active albuterol (Ventolin HFA) 108 (90 Base) MCG/ACT inhalerIndication s:Moderate persistent asthma without complication INHALE 2 PUFFS BY MOUTH EVERY 4 TO 6 HOURS NEEDED FOR WHEEZING OR SHORTNESS OF BREATH 18 g 08/07/2025 4:19 PM EST Active acetaminophen (Tylenol 8 Hour) 650 MG ER tabletIndications :Other chronic pain TAKE 2 TABLETS EVERY 8 HOURS NEEDED FOR PAIN, DO NOT BREAK, CRUSH, DISSOLVE OR CHEW 100 tablet 3 08/07/2025 4:19 PM EST Active mineral oil-hydrophil petrolat ointment Topical OintmentIndicatio ns:Cellulitis of right lower limb APPLY TOPICALLY NEEDED FOR DRY SKIN 454 g Active oxyCODONE (Roxicodone) 10 MG immediate release tabletIndications :Chronic pain of right knee Take 1 tablet (10 mg) by mouth every 12 (twelve) hours if needed for severe pain for up to 28 days. 56 tablet 5 08/12/20 metroNIDAZOLE (Flagyl) 500 MG tabletIndications :Pelvic pain Take 1 tablet (500 mg) by mouth 2 times daily for 7 days. 14 tablet 5 07/23/20 fluconazole (Diflucan) 150 MG tabletIndications :Pelvic pain Take 1 tablet (150 mg) by mouth every 3rd (third) day for 7 days. 2 tablet 5 07/23/20 25 Active Problems Problem Noted Date Diagnosed Date Other chronic pain 07/16/2025 Bilateral carpal tunnel syndrome 07/16/2025 Assessment & Plan (07/16/2025 2:31 PM EDT): Bilateral night wrist splints Long-term current use of opiate analgesic 2024 Assessment & Plan (07/16/2025 11:21 AM EDT): Dx: Knee osteoarthritis, cervical and lumbar spine arthritis Rx: oxycodone 5mg BID Last COMMUNITY AFFAIRS MANAGER agreement: 07/15/25 Tier II (visit every 3 months) Additional considerations: joining COMMUNITY AFFAIRS MANAGER after 2+ years of recurrent cellulitis s/p infected R knee prosthesis. Was on opioids on and off during that time period. Mostly uses medication to help with sleep Timeline: urine tox 07/15/25 neg for all substances Hyperlipidemia 02/13/2025 Tinea pedis of both feet 02/13/2025 Vertebral artery stenosis, bilateral 10/20/2024 Overview (10/20/2024): on CTA at [facility] ED 10/18/24 Impaired mobility 01/17/2023 Assessment & [...] Will also have patient see ortho at [facility] to discuss washout of R TKA arthrosis? Oxycodone 5mg for nighttime x 30 days, use sparingly Assessment & Plan (11/09/2022 11:47 AM EST): Pt admitted to [facility] recently as a result. Work up did [...] lower quadrant abdominal pain 11/09/2022 Pelvic pain 11/09/2022 Assessment & Plan (11/09/2022 11:50 AM [...] ANDRE or other interventions Breast pain 09/13/2022 Dyspnea on exertion 09/13/2022 Fever 09/13/2022 [...] pain mgmt Malignant neoplasm of cervix (CMS/HCC) 2 Overview (09/13/2022): status post hysterectomy 1995 Assessment & Plan (12/31/2023 9:03 AM EDT): Managed surgically, no further followup needed as she is more than 20 years after her surgery Primary osteoarthritis of left knee 09/13/2022 Asthma 07/30/2015 Assessment & Plan (12/31/2023 9:04 AM EDT): CAMILA prn Constipation 07/30/2015 Depression 07/30/2015 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 Hypertension [...] Neurogenic bladder 07/30/2015 Overweight 07/30/2015 Smoker 07/30/2015 Resolved Problems Problem Noted Date Diagnosed Date Resolved Date Class 1 obesity 09/13/2022 07/16/2025 Atopic conjunctivitis 07/30/20152024 Encounters Date Type Department Care Team Description 08/11/2025 Telephone [facility] [address] [place] [address] Lilly Cowart MD Call Back Request 08/05/2025 Refill [facility] [address] [place] [address] Lilly Cowart MD Chronic pain of right knee 07/20/2025 Telephone [facility] [address] [place] [address] Lilly Cowart MD Durable Medical Equipment (DME Request: Wrist Splints (Bilateral)/Heating Pad) 07/20/2025 Patient Outreach [address] [address] Lilly Cowart MD Care Coordination (CM/CHW outreach) 07/16/2025 Results Follow-Up [address] [address] Lora Monreal RN Bacterial Vaginosis Panel, Chlamydia/N. Gonorrhoeae RNA, TMA, Urogenitial, POCT CRISTÓBAL-14 Urine Drug Screen 07/15/2025 11:30 AM EDT Office Visit [address] [address] Lilly Cowart MD Chronic bilateral low back pain without sciatica (Primary Dx); Chronic pain of right knee; Cellulitis of right lower limb; Vertebral artery stenosis, bilateral; Malignant neoplasm of endocervix (CMS/HCC) (HCC); Anemia, unspecified type; Moderate persistent asthma without complication; Other chronic pain; Pelvic pain; Screening for colon cancer; Primary hypertension; Other hyperlipidemia; Long-term current use of opiate analgesic; Primary osteoarthritis of left knee; Pain and swelling of lower extremity, right; Bilateral carpal tunnel syndrome 07/15/[address] [address] Lilly Cowart MD Cellulitis of right lower limb 07/15/2025 Travel 07/14/[address] [address] Lilly Cowart MD chart prep 07/06/[address] [address] Lilly Cowart MD Chronic pain of right knee 06/23/[address] [address] Lilly Cowart MD chart prep 06/22/[address] [address] Lilly Cowart MD Nurse Triage 06/22/2025 Patient Outreach [address] [address] Lilly Cowart MD Care Coordination (CM/CHW outreach) 06/22/2025 Patient Outreach [address] [address] Lilly Cowart MD Care Coordination (W chart review) 06/22/2025 Results Follow-Up [address] Abdomen Pelvis w/ Contrast 06/22/2025 Patient Outreach [address] [address] Lilly Cowart MD Care Management ([facility]- chart review) 06/22/2025 Patient Outreach [address] [address] Lilly Cowart MD 06/21/2025 Orders Only GENERIC EXTERNAL DATA DEPARTMENT Provider, Generic External Data 06/18/[address] [address] Lilly Cowart MD Dec Recall 06/08/[address] [address] Lilly Cowart MD Chronic pain of right knee 06/01/[address] [address] Hazel Leyva, RN [facility] COMMUNITY AFFAIRS MANAGER Initial X2 from Last 3 Months Immunizations Immunization Administration [...] Description 10/15/2025 11:30 AM EST Clinical Support [facility] [address] [place] [address] [phone] Hazel Leyva RN 10/16/2025 11:15 AM EST Office Visit [facility] [address] [place] [phone] Lilly Cowart MD [address] [place] [address] Health Maintenance Due Date Last Done Comments CT Colonography 1960 Colonoscopy 1960 FIT 1960 HIV Screening 1960 Lipid Panel 1960 Sigmoidoscopy 1960 Disability Screening 1962 Alcohol/Substance Use Screening 1974 Hepatitis C Screening 1980 Pap Smear 1983 HPV/Cotest 1992 RSV Patients and Patients Aged 60 years or older (1 - Risk 50-74 years 1-dose series) 2012 Zoster Vaccines (1 of 2) 2012 Pneumococcal Vaccine: 50+ Years (2 of 2 - PCV) 10/01/2014 10/01/2013, 10/30/2012 SDOH Screening 12/26/2024 12/27/2023 Mammogram 01/21/2025 01/22/2024 COVID-19 Vaccine (3 - season) 2025 09/30/2021, 09/08/2021 Influenza Vaccine (#1) 2025 7, 12/03/2016, 07/13/2016, Additional history exists Depression Monitoring 08/16/2025 02/13/2025, 025 Tobacco Screening 07/16/2026 07/16/2025 FOBT 07/29/2026 07/29/2025 DTaP/Tdap/Td Vaccines (5 - Td or Tdap) 03/21/2027 03/21/2017, 06/27/2012, 06/30/2008, Additional history exists Colorectal Cancer Screening 07/29/2028 FIT DNA/Cologuard 07/29/2028 07/29/2025 Cervical Cancer Screening Discontinued HIB Vaccines Aged [...] Procedure Name Priority Date/Time Associated Diagnosis Comments LAB COLOGUARD COLON CANCER SCREEN Routine 07/29/2025 9:30 AM EST Screening for colon cancer XR LUMBAR SPINE 2-3 VIEWS Routine 07/15/2025 2:00 PM EDT Chronic bilateral low back pain without sciatica POCT CRISTÓBAL-14 URINE DRUG SCREEN Routine 07/15/2025 12:12 PM EDT Chronic bilateral low back pain without sciatica CHLAMYDIA/N. GONORRHOEAE RNA, TMA, UROGENITAL Routine 07/15/2025 11:48 AM EDT Pelvic pain BACTERIAL VAGINOSIS PANEL Routine 07/15/2025 11:48 [address] EDT Pelvic pain [address] ABDOMEN PELVIS W CONTRAST Routine 06/21/2025 [...] Recently Relevant to Health Maintenance Results * Cologuard?? colon cancer screening (07/29/2025 9:30 AM EST) Cologuard Result Negative Negative 08/03/20 11:49 PM EST [facility] (CLIA #:[id number]) Comment: The Cologuard (TM) test was performed on this specimen. NEGATIVE TEST RESULT. A negative Cologuard result indicates a low likelihood that a colorectal cancer (CRC) or advanced adenoma (adenomatous polyps with more advanced pre-malignant features) is present. The chance that a person with a negative Cologuard test has a colorectal cancer is less than 1 in 1500 (negative predictive value >99.9%) or has an advanced adenoma is less than 5.3% (negative predictive value 94.7%). These data are based on a prospective cross-sectional study of 10,000 individuals at average risk for colorectal cancer who were screened with both Cologuard and colonoscopy. (Brandt Burleson al, N Engl J Med 2014;370(14):1286- 1297) The normal value (reference range) for this assay is negative. COLOGUARD RE-SCREENING RECOMMENDATION: Periodic colorectal cancer screening is an important part of preventive healthcare for asymptomatic individuals at average risk for colorectal cancer. Following a negative Cologuard result, the [place] [employer] Society and U.S. Multi-Society Task Force screening guidelines recommend a Cologuard re-screening interval of 3 years. References: [place] [employer] Guideline for Colorectal Cancer Screening: https://www.cancer.org/cancer/sibiz-gsircz-dnibba/ydbmyhhlk-psmitymtv-nykfzbw/ac s-rec ommendations.html.; Mekhi DK, Rios VELÁZQUEZ, Janae JohnsK, Colorectal Cancer Screening: Recommendations for Physicians and Patients from the U.S. Multi-Society Task Force on Colorectal Cancer Screening , Am J Gastroenterology 2017; 112:2084-4771. TEST DESCRIPTION: Composite algorithmic analysis of stool DNA-biomarkers with hemoglobin immunoassay. Quantitative values of individual biomarkers are not reportable and are not associated with individual biomarker result reference ranges. Cologuard is intended for colorectal cancer screening of adults of either sex, 45 years or older, who are at average-risk for colorectal cancer (CRC). Cologuard has been approved for use by the U.S. FDA. The performance of Cologuard was established in a cross sectional study of average-risk adults aged 50-84. Cologuard performance in patients ages 45 to 49 years was estimated by sub-group analysis of near-age groups. Colonoscopies performed for a positive result may find as the most clinically significant lesion: colorectal cancer [4.0%], advanced adenoma (including sessile serrated polyps greater than or equal to 1cm diameter) [20%] or non- advanced adenoma [31%]; or no colorectal neoplasia [45%]. These estimates are derived from a prospective cross-sectional screening study of 10,000 individuals at average risk for colorectal cancer who were screened with both Cologuard and colonoscopy. (Brandt Earl et al, N Engl J Med 2014;370(14):7425-0797.) Cologuard may produce a false negative or false positive result (no colorectal cancer or precancerous polyp present at colonoscopy follow up). A negative Cologuard test result does not guarantee the absence of CRC or advanced adenoma (pre-cancer). The current Cologuard screening interval is every 3 years. ([place] [employer] Society and U.S. Multi-Society Task Force). Cologuard performance data in a 10,000 patient pivotal study using colonoscopy as the reference method can be accessed at the following location: www.[employer]/results. Additional description of the Cologuard test process, warnings and precautions can be found at www.cologuard.com. Stool specimen (specimen) 07/29/2025 9:30 AM EST 07/31/2025 1:32 PM EST Lilly Cowart MD LAB MOLECULAR DIAGNOSTICS ORDE GLADIS Final Result [facility] (CLIA #:[id number]) [address] [place] [address], * XR Lumbar Spine 2-3 Views (07/15/2025 2:00 PM EDT) Anatomical Region Laterality Modality Spine, L-spine Radiographic Sadia ging 07/15/2025 2:00 PM EDT Narrative 07/15/2025 2:15 PM EDT [address] [address] XRay Report Signed Patient: Nadege Lee MR#: [id number] : 1960 Acct:[id number] Age/Sex: 65 / F ADM Date: 07/15/25 Loc: HO.HHCX Attending Dr: Lilly Cowart MD Ordering Physician: Lilly Cowart Date of Service: 07/15/25 Procedure(s): XR lumbar spine 2-3V Accession Number(s): [id number] cc: Lilly Cowart Reason for Exam: back [...] 07/15/25 1413 DD/ 1400 TD/TT: 07/15/25 1403 Joggle Press Operator: DARIA Procedure Note Donotuseinterpreter, Image - 07/15/[address] [address] XRay Report Signed Patient: Taty Lee#: [id number] : 2Acct:[id number] Age/Sex: 65 / FADM Date: 07/15/25 Loc: .HHCX Attending Dr: Lilly Cowart MD Ordering Physician: Lilly Cowart Date of Service: 07/15/25 Procedure(s): XR lumbar spine 2-3V Accession Number(s): [id number] cc: Lilly Cowart Reason for Exam: back [...] 07/15/25 1413 DD/ 1400 TD/TT: 07/15/25 1403 Joggle Press Operator: DARIA Lilly Cowart MD IMG XR PROCEDURES Final [...] - 07/15/2025 12:12 PM EDT UTOX cup Lot#[id number] Exp. 06/23/26 Internal Pass Control Lilly Cowart MD POINT OF CARE TEST ENTER/EDIT ORDERABLES Final Result * (ABNORMAL) Bacterial Vaginosis Panel (07/15/2025 11:48 AM EDT) TRICHOMONAS VAGINALIS DETECTION BY PCR NOT DETECTED Not Detect [facility] BACTERIAL VAGINOSIS DETECTION BY PCR POSITIVE(A) Negative [facility] Comment:The BV organism targ ets of the Xpert Xpress MVP test can becommensal in women; Xpert Xpress MVP positive results forbacterial vaginosis should be considered in conjunction withother clinical and patient information to determine thedisease status. Organisms that are not detected by the XpertXpress MVP test have also been reported to be associatedwith BV and aerobic vaginitis.The Xpert Xpress MVP test performance has not been evaluatedin patients under the age of 14. LITTLE GROUP DETECTION BY PCR NOT DETECTED Not Detect [facility] Little glab krusei PCR DETECTED(A) Not Detect [facility] Swab Vaginal structure / Unknown 07/15/2025 11:48 AM EDT 07/15/2025 4:20 PM EDT Lilly Cowart MD LAB MICROBIOLOGY - GENERAL ORD ERABLES Final Result [facility] [address] [place] [address] [phone] * Chlamydia/N. Gonorrhoeae RNA, TMA, Urogenitial (07/15/2025 11:48 AM EDT) CT PCR NOT DETECTED Not Detect. [facility] Comment:A not detected test result does not exclude the possibilityof infection because test results can be affected byimproper specimen collection, concurrent antibiotic therapy,or the number of organisms in the specimen which may bebelow the sensitivity of the test. As with many diagnostictests, results from the Xpert CT/NG assay should beinterpreted in conjunction with other laboratory andclinical data available to the clinician.Xpert CT/NG performance has not been evaluated in patientsless than 14 years of age. The assay should not be used forthe evaluationof suspected sexual abuse or for other medico-legalindications. Additional testing is recommended in anycircumstance when false positive or false negative resultscould lead to adverse medical, social or psychologicalconsequences. NG PCR NOT DETECTED Not Detect. [facility] Comment:A not detected test result does not exclude the possibilityof infection because test results can be affected byimproper specimen collection, concurrent antibiotic therapy,or the number of organisms in the specimen which may bebelow the sensitivity of the test. As with many diagnostictests, results from the Xpert CT/NG assay should beinterpreted in conjunction with other laboratory andclinical data available to the clinician.Xpert CT/NG performance has not been evaluated in patientsless than 14 years of age. The assay should not be used forthe evaluationof suspected sexual abuse or for other medico-legalindications. Additional testing is recommended in anycircumstance when false positive or false negative resultscould lead to adverse medical, social or psychologicalconsequences. Swab Vaginal structure / Unknown 07/15/2025 11:48 AM EDT 07/15/2025 4:20 PM EDT Lilly Cowart MD LAB MICROBIOLOGY - GENERAL ORD ERABLES Final Result Performing Organization Address City/State/[facility] Co de Phone Number [facility] [address] [place] [phone] * CT Abdomen Pelvis w/ Contrast (06/21/2025 6:35 PM EDT) Anatomical Region Laterality Modality Body, Pelvis, Abdomen Computed T omography 06/21/2025 6:35 PM EDT Narrative 06/21/2025 6:36 PM EDT [address] [address] [address] Scan Report Signed Patient: Nadege Lee MR#: [id number] : 1960 Acct:[id number] Age/Sex: 64 / F ADM Date: 06/21/25 Loc: HO.ED Attending Dr: Ordering Physician: John Sumner MD Date of Service: 06/21/25 Procedure(s): CT abdomen pelvis w IV con Accession Number(s): [id number] cc: Lilly Cowart; John Sumner MD Report Number: [id number]: Total DLP = 554.00 mGy-cm Reason for Exam: lower abdpain. Hx of [place] CLINICAL HISTORY: lower abdpain. Hx of [facility] CT abdomen and pelvis with contrast Comparison: [...] in OV> 06/21/251835 DD/ 34 TD/TT: 06/21/251834 Joggle Press Operator: Procedure Note Donotuseinterpreter, Image - 06/21/[address] [address] [address] Scan Report Signed Patient: Nadege LeeMR#: [id number] : 1960cct:[id number] Age/Sex: 64 / FADM Date: 06/21/25 Loc: HO.ED Attending Dr: Ordering Physician: John Sumner MD Date of Service: 06/21/25 Procedure(s): CT abdomen pelvis w IV con Accession Number(s): [id number] cc: Lilly Cowart; John Sumner MD Report Number: [id number]: Total DLP = 554.00 mGy-cm Reason for [...] in OV> 06/21/251835 DD/ 34 TD/TT: 06/21/251834 Joggle Press Operator: [facility] External Provider IMG CT PROCEDURES Final Result * (ABNORMAL) CBC auto differential (06/21/2025 1:52 PM EDT) White Blood Count 8.4 4.8 - 10.8 X10*3/uL [facility] Red Blood Count 4.12(L) 4.20 - 5.50 X10*6/uL [facility] Hemoglobin 9.9(L) 12.0 - 16.0 g/dl [facility] Hematocrit 31.2(L) 37.0 - 47.0 % [facility] Mean Corpuscular Volume 75.7(L) 80.0 - 98.0 fL [facility] Mean Corpuscular Hemoglobin 24.0(L) 27.0 - 33.0 pg [facility] Mean Corpuscular HGB Conc 31.7 31.0 - 35.0 g/dl [facility] Red Cell Distribution Width 18.1(H) 11.0 - 16.0 % [facility] Platelet Count 239 160 - 400 X10*3/uL [facility] Mean Platelet Volume 10.7 9.4 - 12.3 fL [facility] Neutrophils Percent Auto 49.3 45 - 73 % [facility] Imm Gran Pct Auto 0.5(H) 0.0 - 0.4 % [facility] Lymphocytes Percent Auto 39.3 20 - 40 % [facility] Monocytes Percent Auto 6.6 2 - 11 % [facility] Eosinophils Percent Auto 3.7 0 - 4 % [facility] Basophils Percent Auto 0.6 0 - 2 % [facility] NRBC Pct Auto 0.0 0.0 - 0.2 /100WBC [facility] Neutrophils Absolute Auto 4.2 2.0 - 8.3 x10*3/uL [facility] Imm Gran Abs Auto 0.04(H) 0.00 - 0.03 X10*3/uL [facility] Lymphocytes Absolute Auto 3.3 1.2 - 4.9 X10*3/uL [facility] Monocytes Absolute Auto 0.6 0.1 - 1.2 X10*3/uL [facility] Eosinophils Absolute Auto 0.3 0.0 - 0.4 X10*3/uL [facility] Basophils Absolute Auto 0.1 0.0 - 0.2 X10*3/uL [facility] NRBC Abs Auto 0.000 0.0 - 0.012 X10*3/uL [facility] 06/21/2025 1:52 PM EDT 06/21/2025 1:58 PM EDT us Generic External Data Provider LAB BLOOD ORDERAB LES Final Result Performing Organization Address [facility]/ZIP Co de Phone Number [facility] [address] [place] [phone] * Urinalysis w/reflex microscopic (06/21/2025 1:52 PM EDT) Color Urine Yellow [facility] Appearance Urine Clear [facility] PH 6.0 5.0 - 9.0 [facility] Glucose Urine UA Negative Negative mg/dL [facility] Urine Blood Negative Negative [facility] Specific Peridot - Urine 1.020 1.005 - 1.025 [facility] Urine Protein Negative Neg-Trace mg/dL [facility] Urine Ketones Trace Negative mg/dL [facility] Nitrite Urine Negative Negative [facility] Leukocyte Esterase Urine Negative Negative [facility] 06/21/2025 1:52 PM EDT 06/21/2025 1:58 PM EDT Narrative [facility] - 06/21/2025 2:11 PM EDT [id number], [employer] us Generic External Data Provider LAB URINE ORDERAB LES Final Result Performing Organization Address [facility]/ZIP Co de Phone Number [facility] [address] [place] [phone] * Partial Thromboplastin Time, Activated (APTT) (06/21/2025 1:52 PM EDT) Pathologist [facility] Partial Thromboplastin Time 28.7 26.7 - 34.1 SEC [facility] 06/21/2025 1:52 PM EDT 06/21/2025 1:58 PM EDT Generic External Data Provider LAB BLOOD ORDERAB LES Final Result Performing Organization Address [facility] Co de Phone Number [facility] [address] [place] [phone] * Prothrombin Time-INR (06/21/2025 1:52 PM EDT) [facility] Prothrombin Time 11.3 10.9 - 12.4 SEC [facility] INTERNATIONAL NORM RATIO 1.0 0.9 - 1.1 [facility] Comment:INTERNATIONAL NORMAL IZED RATIO (INR) [...] 1:52 PM EDT 06/21/2025 1:58 PM EDT [employer] External Data Provider LAB BLOOD ORDERAB LES Final Result Performing Organization Address [facility] de Phone Number [facility] [address] [place] [phone] * (ABNORMAL) Comprehensive Metabolic Panel (06/21/2025 1:52 PM EDT) Pathologist [facility] Sodium 140 135 - 145 mmol/L [facility] Potassium 4.1 3.3 - 5.1 mmol/L [facility] Chloride 107 96 - 108 mmol/L [facility] Carbon Dioxide 25 22 - 29 mmol/L [facility] Anion Gap 12 12 - 20 [facility] Urea Nitrogen (BUN) 19(H) 9 - 16 mg/dL [facility] Creatinine, Serum 0.70 0.5 - 1.4 mg/dL [facility] Creatinine Clr Calc Pharmacy 84.2 [facility] Comment:Provided height and weight: 162.56 cm,78.1 kg.eGFR (calculated from the MDRD study equation) and eCrCl(calculated from the Cockcroft-Gault equation) are based ondifferent parameters and may not yield comparable results.If eCrCl result is absurd, please check patient'sheight/weight. Estimated Glomerular Filt Rate >60 [facility] Comment:Chronic Kidney Disea se: Estimated GFR < 60 mL/min/[id number] Kidney Disease: Estimated GFR < 15 mL/min/1.73m2 Glucose 99 60 - 115 mg/dL [facility] Calcium 9.6 8.4 - 10.2 mg/dL [facility] Bilirubin, Total 0.3 0.0 - 1.0 mg/dL [facility] Aspartate Amino Transferase 23 5 - 31 U/L [facility] Alanine Aminotransferase 15 0 - 31 U/L [facility] Total Protein 7.4 6.5 - 8.0 g/dL [facility] Albumin Level 4.3 3.5 - 5.0 g/dL [facility] Alkaline Phosphatase 102 39 - 117 U/L [facility] 06/21/2025 1:52 PM EDT 06/21/2025 1:58 PM EDT us Generic External Data Provider LAB BLOOD ORDERAB LES Final Result [facility] [address] [place] [address] [phone] * BI Mammogram Screening Tomosynthesis Bilateral (01/22/2024 2:21 PM EDT) Anatomical Region Laterality Modality Breast Bilateral Mammography 01/22/2024 2:21 PM EDT Narrative 02/21/2024 1:33 PM EDT [address] [place] [address] Mammography Report Signed Patient: Nadege Lee MR#: [id number] : 1960 Acct:[id number] Age/Sex: 63 / F ADM Date: 01/22/24 Loc: HO.MAMMO Attending Dr: Lilly Cowart MD Ordering Physician: Lilly Cowart Results: 1Negative Date of Service: 01/22/24 Follow Up: 1 Year From Orig inal Mammogram Procedure(s): MM tomosynthesis screening BI Accession Number(s): [id number] cc: Lilly Cowart EXAMINATION: MM SCREENING DIGITAL [...] in OV> 02/21/24 1329 DD/ 1421 TD/TT: Joggle Press Operator: Procedure Note Donotuseinterpreter, Image - 02/21/[address] [place] [address] Mammography Report Signed Patient: Nadege LeeMR#: [id number] : 1960cct:[id number] Age/Sex: 63 / FADM Date: 01/22/24 Loc: HO.MAMMO Attending Dr: Lilly Cowart MD Ordering Physician: Devon Cowartults: 1Negative Date of Service: 01/22/24Follow Up: 1 Year From Orig ina Mammogram Procedure(s): MM tomosynthesis screening BI Accession Number(s): [id number] cc: Lilly Cowart EXAMINATION: MM SCREENING DIGITAL [...] in OV> 02/21/24 1329 DD/ 1421 TD/TT: Joggle Press Operator: Lilly Cowart MD IMG BI PROCEDURES Final Result from Last 3 Months or Most Recently Relevant to Health Maintenance Insurance [employer] C3 Care Teams Travel Registered Nurse Pacu Relationship Specialty Start Date End Date Lilly Cowart MD [address] [place] [phone] PCP - General Family Medicine 11/16/21
--- OUTSIDE RECORDS SUMMARY | 2025-08-16 23:18 | XMS_ITS | Encounter Summary ---
Author Organization [employer] Address [address] [facility] [address] [place] [address] Care Team Providers Care Chief Supply Chain Officer Name Role Phone Lilly Cowart MD Primary Care Provider [phone] Reason for Visit * Reason Comments Med Refill Encounter Details Date Type Department Care Team (Late st Contact Info) Description 08/05/2025 Refill [facility] [address] [place], [place] [phone] Lilly Cowatr MD [address] [place], [place] [phone] Chronic pain of right knee Social History Tobacco Use Types Packs/Day Years [...] Description 10/15/2025 11:30 AM EST Clinical Support [address] [address] Hazel Leyva RN 10/16/2025 11:15 AM EST Office Visit [address] [address] Lilly Cowart MD [address] [place] [phone] documented as of this encounter Visit Diagnoses Diagnosis Chronic pain of right knee documented in this encounter Additional Health Concerns Assessment Noted Time PHQ-9 Depression Total Score: 9 02/14/20 25 8:03 AM EDT documented as of this encounter Care Teams Chief Supply Chain Officer Relationship Specialty Start Date End Date Lilly Cowart MD [address] [place] [phone] PCP - General Family Medicine 11/16/21 documented as of this encounter
--- OUTSIDE RECORDS SUMMARY | 2025-08-16 23:18 | XMS_ITS | Encounter Summary ---
Author Organization [employer] Address [address] [facility] [address] [place] [address] Care Team Providers Care Brain Picker Name Role Phone Lilly Cowart MD Primary Care Provider [phone] Marc Dahl RN Unavailable Karal Harrison Unavailable Marc Dahl RN Unavailable [phone] Karla Harrison Unavailable Elvie Dumont RN Unavailable Viviana Marlow Unavailable Encounter Details Date Type Department Care Team (Late st Contact Info) Description 08/30/2022 Orders Only [facility] [address] [place], [place] [phone] Lindsey Salcedo LPN Social History Tobacco Use [...] Description 10/15/2025 11:30 AM EST Clinical Support [facility] [address] [place] [address] [phone] Hazel Leyva, HENOK 10/16/2025 11:15 AM EST Office Visit [facility] [address] [place] [address] [phone] Lilly Cowart MD [address] [place] [address] [phone] documented as of this encounter Procedures Procedure [...] (12/07/2022 11:34 AM EDT) Color Urine Yellow [facility] Appearance Urine Clear [facility] PH 6.5 5.0 - 9.0 [facility] Glucose Urine UA Negative Negative mg/dL [facility] Urine Blood Negative Negative [facility] Specific [place] - Urine >=1.030(H) 1.005 - 1.025 [facility] Urine Protein Negative Neg-Trace mg/dL [facility] Urine Ketones Negative Negative mg/dL [facility] Nitrite Urine Negative Negative [facility] Leukocyte Esterase Urine Negative Negative [facility] RBC Urine 0-2 0 - 2 /HPF [facility] Urine WBC 0-5 0 - 5 /HPF [facility] Urine Squamous Epithelial Cell 0-2 0 - 2 /HPF [facility] Urine Bacteria None Seen None Seen [facility] Hyaline Casts, Urine 0-2 0 - 2 /LPF [facility] 12/07/2022 11:3 4 AM EDT 12/07/2022 11:37 AM EDT Narrative [facility] - 12/07/2022 11:45 AM EDT 1131Urine, Catheterized us [facility] External Provider LAB URI NE ORDERABLES Final Result [facility] [address] [place] [address] [phone] * (ABNORMAL) Comprehensive Metabolic Panel, Fasting (12/07/2022 9:57 AM EDT) Sodium 140 135 - 145 mmol/L [facility] Potassium 4.0 3.3 - 5.1 mmol/L [facility] Chloride 108 96 - 108 mmol/L [facility] Carbon Dioxide 21(L) 22 - 29 mmol/L [facility] Anion Gap 15 12 - 20 [facility] Urea Nitrogen (BUN) 14 9 - 16 mg/dL [facility] Creatinine, Serum 0.79 0.5 - 1.4 mg/dL [facility] Creatinine Clr Calc Pharmacy 76.2 [facility] Comment:Provided height and weight: 162.56 cm,77.564 kg.eGFR (calculated from the MDRD study equation) and eCrCl(calculated from the Cockcroft-Gault equation) are based ondifferent parameters and may not yield comparable results.If eCrCl result is absurd, please check patient'sheight/weight. Estimated Glomerular Filt Rate >60 [facility] Comment:NOTE: For -Am erican individuals, multiply the result by 1.210.Chronic Kidney Disease: Estimated GFR < 60 mL/min/[id number] Kidney Disease: Estimated GFR < 15 mL/min/1.73m2 Glucose Fasting 88 60 - 99 mg/dL [facility] Calcium 9.7 8.4 - 10.2 mg/dL [facility] Bilirubin, Total 0.4 0.0 - 1.0 mg/dL [facility] Aspartate Amino Transferase 17 5 - 31 U/L [facility] Alanine Aminotransferase 17 0 - 31 U/L [facility] Total Protein 7.3 6.5 - 8.0 g/dL [facility] Albumin Level 4.2 3.5 - 5.0 g/dL [facility] Alkaline Phosphatase 92 39 - 117 U/L [facility] 12/07/2022 9:57 AM EDT 12/07/2022 10:02 AM EDT us [facility] External Provider LAB BLO OD ORDERABLES Final Result [facility] [address] [place], [place] [phone] * (ABNORMAL) CBC auto differential (12/07/2022 9:57 AM EDT) White Blood Count 8.3 4.8 - 10.8 X10*3/uL [facility] Red Blood Count 4.29 4.20 - 5.50 X10*6/uL [facility] Hemoglobin 10.2(L) 12.0 - 16.0 g/dl [facility] Hematocrit 33.5(L) 37.0 - 47.0 % [facility] Mean Corpuscular Volume 78.1(L) 80.0 - 98.0 fL [facility] Mean Corpuscular Hemoglobin 23.8(L) 27.0 - 33.0 pg [facility] Mean Corpuscular HGB Conc 30.4(L) 31.0 - 35.0 g/dl [facility] Red Cell Distribution Width 17.2(H) 11.0 - 16.0 % [facility] Platelet Count 284 160 - 400 X10*3/uL [facility] Mean Platelet Volume 10.3 9.4 - 12.3 fL [facility] Neutrophils Percent Auto 45.6 45 - 73 % [facility] Imm Gran Pct Auto 0.2 0.0 - 0.4 % [facility] Lymphocytes Percent Auto 42.9(H) 20 - 40 % [facility] Monocytes Percent Auto 7.2 2 - 11 % [facility] Eosinophils Percent Auto 3.6 0 - 4 % [facility] Basophils Percent Auto 0.5 0 - 2 % [facility] NRBC Pct Auto 0.0 0.0 - 0.2 /100WBC [facility] Neutrophils Absolute Auto 3.8 2.0 - 8.3 x10*3/uL [facility] Imm Gran Abs Auto 0.02 0.00 - 0.03 X10*3/uL [facility] Lymphocytes Absolute Auto 3.6 1.2 - 4.9 X10*3/uL [facility] Monocytes Absolute Auto 0.6 0.1 - 1.2 X10*3/uL [facility] Eosinophils Absolute Auto 0.3 0.0 - 0.4 X10*3/uL [facility] Basophils Absolute Auto 0.0 0.0 - 0.2 X10*3/uL [facility] NRBC Abs Auto 0.000 0.0 - 0.012 X10*3/uL [facility] 12/07/2022 9:57 AM EDT 12/07/2022 10:02 AM EDT us [facility] External Provider LAB BLO OD ORDERABLES Final Result [facility] [address] [place] [address] [phone] * (ABNORMAL) Comprehensive Metabolic Panel (10/23/2022 10:53 AM EST) Sodium 139 135 - 145 mmol/L [facility] Potassium 4.3 3.3 - 5.1 mmol/L [facility] Chloride 108 96 - 108 mmol/L [facility] Carbon Dioxide 23 22 - 29 mmol/L [facility] Anion Gap 12 12 - 20 [facility] Urea Nitrogen (BUN) 18(H) 9 - 16 mg/dL [facility] Creatinine, Serum 0.87 0.5 - 1.4 mg/dL [facility] Creatinine Clr Calc Pharmacy 67.1 [facility] Comment:Provided height and weight: 162.56 cm,72.575 kg.eGFR (calculated from the MDRD study equation) and eCrCl(calculated from the Cockcroft-Gault equation) are based ondifferent parameters and may not yield comparable results.If eCrCl result is absurd, please check patient'sheight/weight. Estimated Glomerular Filt Rate >60 [facility] Comment:NOTE: For -Am erican individuals, multiply the result by 1.210.Chronic Kidney Disease: Estimated GFR < 60 mL/min/1.86o9Omfcna Kidney Disease: Estimated GFR < 15 mL/min/1.73m2 Glucose 82 60 - 115 mg/dL [facility] Calcium 9.5 8.4 - 10.2 mg/dL [facility] Bilirubin, Total 0.3 0.0 - 1.0 mg/dL [facility] Aspartate Amino Transferase 17 5 - 31 U/L [facility] Alanine Aminotransferase 23 0 - 31 U/L [facility] Total Protein 7.1 6.5 - 8.0 g/dL [facility] Albumin Level 4.1 3.5 - 5.0 g/dL [facility] Alkaline Phosphatase 104 39 - 117 U/L [facility] 10/23/2022 10:5 3 AM EST 10/23/2022 10:56 AM EST us [facility] External Provider LAB BLO OD ORDERABLES Final Result [facility] [address] [place] [address] [phone] * (ABNORMAL) CBC auto differential (10/23/2022 10:53 AM EST) White Blood Count 9.5 4.8 - 10.8 X10*3/uL [facility] Red Blood Count 4.38 4.20 - 5.50 X10*6/uL [facility] Hemoglobin 10.5(L) 12.0 - 16.0 g/dl [facility] Hematocrit 34.5(L) 37.0 - 47.0 % [facility] Mean Corpuscular Volume 78.8(L) 80.0 - 98.0 fL [facility] Mean Corpuscular Hemoglobin 24.0(L) 27.0 - 33.0 pg [facility] Mean Corpuscular HGB Conc 30.4(L) 31.0 - 35.0 g/dl [facility] Red Cell Distribution Width 17.2(H) 11.0 - 16.0 % [facility] Platelet Count 319 160 - 400 X10*3/uL [facility] Mean Platelet Volume 10.6 9.4 - 12.3 fL [facility] Neutrophils Percent Auto 49.3 45 - 73 % [facility] Imm Gran Pct Auto 0.3 0.0 - 0.4 % [facility] Lymphocytes Percent Auto 38.4 20 - 40 % [facility] Monocytes Percent Auto 7.9 2 - 11 % [facility] Eosinophils Percent Auto 3.4 0 - 4 % [facility] Basophils Percent Auto 0.7 0 - 2 % [facility] NRBC Pct Auto 0.0 0.0 - 0.2 /100WBC [facility] Neutrophils Absolute Auto 4.7 2.0 - 8.3 x10*3/uL [facility] Imm Gran Abs Auto 0.03 0.00 - 0.03 X10*3/uL [facility] Lymphocytes Absolute Auto 3.6 1.2 - 4.9 X10*3/uL [facility] Monocytes Absolute Auto 0.8 0.1 - 1.2 X10*3/uL [facility] Eosinophils Absolute Auto 0.3 0.0 - 0.4 X10*3/uL [facility] Basophils Absolute Auto 0.1 0.0 - 0.2 X10*3/uL [facility] NRBC Abs Auto 0.000 0.0 - 0.012 X10*3/uL [facility] 10/23/2022 10:5 3 AM EST 10/23/2022 10:56 AM EST [facility] External Provider LAB BLO OD ORDERABLES Final Result [facility] [address] [place] [address] [phone] * SARS-CoV-2 RNA, Influenza A/B, and RSV RNA, Ql NAAT (10/11/2022 11:39 AM EST) Influenza A PCR NEGATIVE Negative [facility] Influenza B PCR NEGATIVE Negative [facility] Resp Syncy Virus RNA Qual PCR NEGATIVE Negative [facility] SARS COV2 PCR NEGATIVE Negative [facility] SARS/Flu/RSV Note See Note [facility] Comment:All test results mus t [...] use by authorized laboratories.Testing performed on the [employer] GeneXpert utilizingreal-time RT-PCR.All SARS CoV2 and positive influenza A/B results arereported to [facility]. 10/11/2022 11:3 9 AM EST 10/11/2022 11:44 AM EST [facility] Exter nal Provider LAB MICROBIOLOGY - GENERAL ORDERABLES Final Result Performing Organization Address [facility] Co de Phone Number [facility] [address] [place] [address] [phone] * Lactic Acid (10/11/2022 11:39 AM EST) Lactic Acid 1.0 0.5 - 2.0 mmol/L [facility] 10/11/2022 11:3 9 AM EST 10/11/2022 11:44 AM EST [facility] External Provider LAB BLO OD ORDERABLES Final Result Performing Organization Address [facility] de Phone Number [facility] [address] [place] [phone] * Magnesium (10/11/2022 11:38 AM EST) Pathologist [facility] Magnesium 1.8 1.6 - 2.6 mg/dL [facility] 10/11/2022 11:3 8 AM EST 10/11/2022 11:44 AM EST [facility] External Provider LAB BLO OD ORDERABLES Final Result Performing Organization Address [facility] de Phone Number [facility] [address] [place] [phone] * Comprehensive Metabolic Panel (10/11/2022 11:38 AM EST) Sodium 140 135 - 145 mmol/L [facility] Potassium 3.9 3.3 - 5.1 mmol/L [facility] Chloride 108 96 - 108 mmol/L [facility] Carbon Dioxide 22 22 - 29 mmol/L [facility] Anion Gap 14 12 - 20 [facility] Urea Nitrogen (BUN) 16 9 - 16 mg/dL [facility] Creatinine, Serum 0.70 0.5 - 1.4 mg/dL [facility] Creatinine Clr Calc Pharmacy 83.4 [facility] Comment:Provided height and weight: 162.56 cm,72.575 kg.eGFR (calculated from the MDRD study equation) and eCrCl(calculated from the Cockcroft-Gault equation) are based ondifferent parameters and may not yield comparable results.If eCrCl result is absurd, please check patient'sheight/weight. Estimated Glomerular Filt Rate >60 [facility] Comment:NOTE: For -Am erican individuals, multiply the result by 1.210.Chronic Kidney Disease: Estimated GFR < 60 mL/min/1.50n4Smpjdc Kidney Disease: Estimated GFR < 15 mL/min/1.73m2 Glucose 86 60 - 115 mg/dL [facility] Calcium 9.5 8.4 - 10.2 mg/dL [facility] Bilirubin, Total 0.3 0.0 - 1.0 mg/dL [facility] Aspartate Amino Transferase 20 5 - 31 U/L [facility] Alanine Aminotransferase 19 0 - 31 U/L [facility] Total Protein 7.3 6.5 - 8.0 g/dL [facility] Albumin Level 4.1 3.5 - 5.0 g/dL [facility] Alkaline Phosphatase 114 39 - 117 U/L [facility] 10/11/2022 11:3 8 AM EST 10/11/2022 11:44 AM EST us [facility] External Provider LAB BLO OD ORDERABLES Final Result [facility] [address] [place] [address] [phone] * Prothrombin Time-INR (10/11/2022 11:38 AM EST) Prothrombin Time 11.5 10.0 - 13.1 SEC [facility] INTERNATIONAL NORM RATIO 1.0 0.9 - 1.1 [facility] Comment:INTERNATIONAL NORMAL IZED RATIO (INR) [...] 8 AM EST 10/11/2022 11:44 AM EST [facility] External Provider LAB BLO OD ORDERABLES Final Result [facility] [address] [place] [address] [phone] * (ABNORMAL) CBC auto differential (10/11/2022 11:38 AM EST) White Blood Count 12.0(H) 4.8 - 10.8 X10*3/uL [facility] Red Blood Count 4.60 4.20 - 5.50 X10*6/uL [facility] Hemoglobin 11.0(L) 12.0 - 16.0 g/dl [facility] Hematocrit 36.0(L) 37.0 - 47.0 % [facility] Mean Corpuscular Volume 78.3(L) 80.0 - 98.0 fL [facility] Mean Corpuscular Hemoglobin 23.9(L) 27.0 - 33.0 pg [facility] Mean Corpuscular HGB Conc 30.6(L) 31.0 - 35.0 g/dl [facility] Red Cell Distribution Width 16.9(H) 11.0 - 16.0 % [facility] Platelet Count 246 160 - 400 X10*3/uL [facility] Mean Platelet Volume 10.3 9.4 - 12.3 fL [facility] Neutrophils Percent Auto 69.8 45 - 73 % [facility] Imm Gran Pct Auto 0.3 0.0 - 0.4 % [facility] Lymphocytes Percent Auto 21.8 20 - 40 % [facility] Monocytes Percent Auto 5.8 2 - 11 % [facility] Eosinophils Percent Auto 2.0 0 - 4 % [facility] Basophils Percent Auto 0.3 0 - 2 % [facility] NRBC Pct Auto 0.0 0.0 - 0.2 /100WBC [facility] Neutrophils Absolute Auto 8.4(H) 2.0 - 8.3 x10*3/uL [facility] Imm Gran Abs Auto 0.04(H) 0.00 - 0.03 X10*3/uL [facility] Lymphocytes Absolute Auto 2.6 1.2 - 4.9 X10*3/uL [facility] Monocytes Absolute Auto 0.7 0.1 - 1.2 X10*3/uL [facility] Eosinophils Absolute Auto 0.2 0.0 - 0.4 X10*3/uL [facility] Basophils Absolute Auto 0.0 0.0 - 0.2 X10*3/uL [facility] NRBC Abs Auto 0.000 0.0 - 0.012 X10*3/uL [facility] 10/11/2022 11:3 8 AM EST 10/11/2022 11:44 AM EST [facility] External Provider LAB BLO OD ORDERABLES Final Result Performing Organization Address City/State/[facility] Co de Phone Number [facility] [address] [place] [address] [phone] documented in this encounter Visit Diagnoses Not on filedocumented in this encounter Care Teams Brain Picker Relationship Specialty Start Date End Date Lilly Cowart MD [address] [place] [address] PCP - General Family Medicine 11/16/21 Marc Dahl, RN [address] [place] [phone] Registered Nurse Family Medicine 02/26/25 03/13/25 Karla Harrison 02/26/25 03/13/25 Marc Dahl, RN [address] [facility] [place] [address] Registered Nurse Family Medicine 04/13/25 04/13/25 Karla Harrison 04/13/25 04/13/25 Elvie Dumont RN [address] [place] [address] Registered Nurse Family Medicine 06/22/25 07/20/25 Viviana Marlow 06/22/25 07/20/25 documented as of this encounter
--- OUTSIDE RECORDS SUMMARY | 2025-08-16 23:18 | XMS_ITS | Encounter Summary ---
Author Organization [employer] Address [address] [facility] 7t [place] [address] Care Team Providers Care Manager Part Name Role Phone Lilly Cowart MD Primary Care Provider [phone] Reason for Visit * Reason Onset Date Comments Call Back Request 08/11/2025 Encounter Details Date Type Department Care Team ([facility] st Contact Info) Description 08/11/2025 Telephone [facility] [address] [place], [place] [phone] Lilly Cowart MD [address] [place], [place] [phone] Call Back Request Social History Tobacco Use Types Packs/Day Years [...] encounter Miscellaneous Notes * Telephone Encounter - Isi García RN - 08/11/2025 2:52 PM EST TC returned to [facility] and provided them with PCP's recommendations for ABA TUTOR hours. They appreciate PCP's input and will reach back out once they determine the hours if there needs to be anything signed. * Telephone Encounter - Isi García RN - 08/11/2025 10:12 AM EST TC returned to [facility]. Spoke to Jocelny, she reports she did pt.'s initial ABA TUTOR evaluation in 2022 when pt. Marginally qualified and was approved for 10 hrs/ week. Last year in 2023, a different nurse did her evaluation and greatly increased her ABA TUTOR hours to 31 hours/week including night hours. Pt.'s evaluation was done yesterday by Jocelyn and she found pt. To be very independent, functional and not in need of night hours since pt. Straight caths herself. Jocelyn reports for any change in hours to increase or decrease 14 hours, they need to notify provider and get provider's input. Jocelyn is inquiring on what PCP's recommendation for pt.'s ABA TUTOR hours would be based on her chronic conditions and abilities. Advised Jocelyn I would call back with provider's response and she agrees to plan. * Telephone Encounter - Maria Alejandra Garduno - 08/11/2025 9:35 AM EST Tc from Jocelyn at [facility] requesting a call back to discuss pt ABA TUTOR services Contact at [phone] ext [phone] documented in this encounter Plan of Treatment Upcoming Encounters Date Type Department Care Team (Late st Contact Info) Description 10/15/2025 11:30 AM EST Clinical Support [facility] [address] [place] [address] Hazel Leyva RN 10/16/2025 11:15 AM EST Office Visit [address] [address] Lilly Cowart MD [address] [place] [address] documented as of this encounter Visit Diagnoses Not on filedocumented in this encounter Additional Health Concerns Assessment Noted Time PHQ-9 Depression Total Score: 9 02/14/20 25 8:03 AM EDT documented as of this encounter Care Teams Manager Part Relationship Specialty Start Date End Date Lilly Cowart MD [address] [place] [address] PCP - General Family Medicine 11/16/21 documented as of this encounter
--- OUTSIDE RECORDS SUMMARY | 2025-08-16 23:18 | XMS_ITS | Encounter Summary ---
Author Organization [employer] [facility] Address [address] [facility] 7t [place] [address] Care Team Providers Care Food Editor Name Role Phone Lilly Cowart MD Primary Care Provider [phone] Marc Dahl RN Unavailable [phone] Karla Harrison Unavailable Marc Dahl RN Unavailable [phone] Karla Harrison Unavailable Elvie Dumont RN Unavailable [phone] Viviana Marlow Unavailable Reason for Visit * Reason Onset Date Comments Hospital Follow-up 05/17/2023 Encounter Details Date Type Department Care Team (Late st Contact Info) Description 05/17/2023 Telephone [facility] [address] [place], [place] [phone] Lilly Cowart MD [address] [place], [place] [phone] Hospital Follow-up Social History Tobacco Use Types [...] of a HDF. Pt was admitted at [facility] on 05/07 and discharged on 05/10 for leg infection, fever, and low blood pressure. Was advised will forward to team nurses for f/u. Please contact pt at [phone] documented in this encounter Plan of Treatment Upcoming Encounters Date Type Department Care Team (Late st Contact Info) Description 10/15/2025 11:30 AM EST Clinical Support [address] [address] Hazel Leyva RN 10/16/2025 11:15 AM EST Office Visit [address] [address] Lilly Cowart MD [address] [place] [address] documented as of this encounter Visit Diagnoses Not on filedocumented in this encounter Care Teams Food Editor Relationship Specialty Start Date End Date Lilly Cowart MD [address] [place] [address] PCP - General Family Medicine 11/16/21 Marc Dahl RN [address] [place] [address] Registered Nurse Family Medicine 02/26/25 03/13/25 Karla Harrison 02/26/25 03/13/25 Marc Dahl RN [address] [place] [address] Registered Nurse Family Medicine 04/13/25 04/13/25 Karla Harrison 04/13/25 04/13/25 Elvie Dumont RN [address] [place] [address] [place] [address] Registered Nurse Family Medicine 06/22/25 07/20/25 Viviana Marlow 06/22/25 07/20/25 documented as of this encounter
--- OUTSIDE RECORDS SUMMARY | 2025-08-16 23:18 | XMS_ITS | Encounter Summary ---
Author Organization [employer] [facility] Address [address] [facility] 7t [place] [address] Care Team Providers Care Briquette Maker Name Role Phone Lilly Cowart MD Primary Care Provider [phone] Marc Dahl RN Unavailable [phone] Karla Harrison Unavailable Marc Dahl RN Unavailable Karla Harrison Unavailable Elvie Dumont RN Unavailable [phone] Viviana Marlow Unavailable Reason for Visit * Reason Comments Med Refill Encounter Details Date Type Department Care Team (Late st Contact Info) Description 08/27/2024 Refill [facility] [address] [place], [place] [phone] Lilly Cowart MD [address] [place] [address] Social History Tobacco Use Types Packs/Day Years [...] Description 10/15/2025 11:30 AM EST Clinical Support [address] [address] Hazel Leyva RN 10/16/2025 11:15 AM EST Office Visit [address] [address] Lilly Cowart MD [address] [place] [address] documented as of this encounter Visit Diagnoses Not on filedocumented in this encounter Additional Health Concerns Assessment Noted Time PHQ-9 Depression Total Score: 8 12/27/19 24 3:25 PM EDT documented as of this encounter Care Teams Briquette Maker Relationship Specialty Start Date End Date Lilly Cowart MD [address] [place] [address] PCP - General Family Medicine 11/16/21 Marc Dahl, RN [address] [place] [address] Registered Nurse Family Medicine 02/26/25 03/13/25 Karla Harrison 02/26/25 03/13/25 Marc Dahl, RN [address] [place] [address] Registered Nurse Family Medicine 04/13/25 04/13/25 Karla Harrison 04/13/25 04/13/25 Elvie Dumont, HENOK [address] [place] [address] Registered Nurse Family Medicine 06/22/25 07/20/25 Viviana Marlow 06/22/25 07/20/25 documented as of this encounter
--- OUTSIDE RECORDS SUMMARY | 2025-08-16 23:18 | XMS_ITS | Encounter Summary ---
Author Organization [employer] Address [address] [facility] 7t [place] [address] Care Team Providers Care Color Matcher Name Role Phone Lilly Cowart MD Primary Care Provider Marc Dahl RN Unavailable [phone] Karla Harrison Unavailable Elvie Dumont RN Unavailable [phone] Viviana Marlow Unavailable Encounter Details Date Type Department Care Team (Late st Contact Info) Description 04/06/[address] [facility] [address] [place] [address] Lilly Cowart MD [address] [place], [place] [phone] Social History Tobacco Use Types Packs/Day Years [...] Description 10/15/2025 11:30 AM EST Clinical Support [address] [address] Hazel Leyva RN 10/16/2025 11:15 AM EST Office Visit [address] [address] Lilly Cowart MD [address] [place] [address] documented as of this encounter Visit Diagnoses Not on filedocumented in this encounter Additional Health Concerns Assessment Noted Time PHQ-9 Depression Total Score: 9 02/14/20 25 8:03 AM EDT documented as of this encounter Care Teams Color Matcher Relationship Specialty Start Date End Date Lilly Cowart MD [address] [place] [address] PCP - General Family Medicine 11/16/21 Marc Dahl, RN [address] [place] [address] Registered Nurse Family Medicine 04/13/25 04/13/25 Karla Harrison 04/13/25 04/13/25 Elvie Dumont RN [address] [place] [address] [place] [address] Registered Nurse Family Medicine 06/22/25 07/20/25 Viviana Marlow 06/22/25 07/20/25 documented as of this encounter
--- OUTSIDE RECORDS SUMMARY | 2025-08-16 23:18 | XMS_ITS | Encounter Summary ---
Author Organization [employer] Address [address] [facility] 7t [place] [address] Care Team Providers Care Service Station Equipment Mechanic Name Role Phone Lilly Cowart MD Primary Care Provider [phone] Marc Dahl RN Unavailable [phone] Karla Harrison Unavailable Marc Dahl RN Unavailable [phone] Karla Harrison Unavailable Elvie Dumont RN Unavailable [phone] Viviana Marlow Unavailable Reason for Visit * Reason Comments Med Refill Encounter Details Date Type Department Care Team (Late st Contact Info) Description 10/29/2022 Refill [facility] [address] [place] [address] Bouchra Pacheco MD [address] [place], [place] [phone] Cellulitis of right lower limb Social History [...] Description 10/15/2025 11:30 AM EST Clinical Support [facility] [address] [place] [address] Hazel Leyva RN 10/16/2025 11:15 AM EST Office Visit [facility] [address] [facility] [place] [place] [phone] Lilly Cowart MD [address] [facility] [place], [place] [phone] documented as of this encounter Visit Diagnoses Diagnosis Cellulitis of right lower limb documented in this encounter Care Teams Service Station Equipment Mechanic Relationship Specialty Start Date End Date Lilly Cowart MD [address] [facility] [place], [place] [phone] PCP - General Family Medicine 11/16/21 Marc Dahl, RN [address] [place] [address] Registered Nurse Family Medicine 02/26/25 03/13/25 Karla Harrison 02/26/25 03/13/25 Marc Dahl, RN [address] [facility] [place] [address] Registered Nurse Family Medicine 04/13/25 04/13/25 Karla Harrison 04/13/25 04/13/25 Elvie Dumont, HENOK [address] [facility] [place] [address] Registered Nurse Family Medicine 06/22/25 07/20/25 Viviana Marlow 06/22/25 07/20/25 documented as of this encounter
--- NOTE | 2025-08-16 23:35 | ED_ITS ---
HPI - Allergic Reaction General Chief complaint: Allergic Reaction Stated complaint: ate chocolate yesterday, allergic reaction? Time Seen by Provider: 08/16/25 23:25 History of Present Illness HPI narrative: Patient is a 65-year-old female ate some chocolate with nuts in it at 22:00 ton ight. Has a history of not allergy. Complaining of diffuse body itching. There is no shortness of breath. Did feel some question tightness in the throat. Able to speak without any difficulty. Tolerating own saliva. Related Data Home Medications ?Medication ?Instructions ?Recorded ?Confirmed acetaminophen 650 mg 2 tab PO Q8H PRN pain 05/15/24 tablet,extended release lisinopril 40 mg tablet 1 tab PO DAILY 10/11/2204/18 metoprolol succinate 25 mg 1 tab PO DAILY 10/11/22 tablet,extended release 24 hr duloxetine 60 mg capsule,delayed 60 mg PO DAILY 05/15/24 release trazodone 100 mg tablet 100 mg PO BEDTIME 02/09/24 0 05/15/24 albuterol sulfate 90 mcg/actuation 2 puff inhalation Q 4-6H PRN 05/15/24 05/15/24 aerosol inhaler (Ventolin HFA) wheezing multivitamin-ferrous 1 tab PO QAM 05/15/24 fumarate-folic acid 18 mg-400 mcg tablet (Tab-A-Iraj Multivitamin w-iron) aspirin 81 mg tablet,delayed 81 mg PO DAILY 03/12/25 0 03/12/25 release rosuvastatin 5 mg tablet 5 mg PO DAILY 04/16/25 Previous Rx's ?Medication ?Instructions ?Recorded cefuroxime axetil 500 mg tablet 500 mg PO BID #12 tabs 05/20/24 diphenhydramine HCl 25 mg capsule 50 mg (2 x 25 mg) PO TID PRN 08/06/24 (Benadryl) allergic reaction #14 caps diphenhydramine HCl 25 mg capsule 50 mg (2 x 25 mg) PO Q6H PRN 10/12/24 headache, nausea, vomiting #20 caps morphine 15 mg immediate release 15 mg PO Q6H PRN pain #10 tabs 10/12/24 tablet ynlhmnq-dzlsnnvctovsv-hizdcsvs 250 2 tab PO Q6H PRN he adache #20 tabs 10/30/24 mg-250 mg-65 mg tablet (Excedrin Extra Strength) diphenhydramine HCl 25 mg capsule 50 mg (2 x 25 mg) PO Q6H PRN 10/30/24 headache, nausea, vomiting #20 caps metoclopramide HCl 10 mg tablet 10 mg PO Q6H PRN nause a and 10/30/24 (Reglan) vomiting #20 tabs morphine 15 mg immediate release 15 mg PO Q8H PRN pain #4 tabs 10/30/24 tablet lidocaine 5 % topical patch 1 patch topical DAILY #15 ea 11/08/24 (Lidoderm) acetaminophen 500 mg capsule 1,000 mg (2 x 500 mg) PO Q8H PRN 06/21/25 pain #14 caps diphenhydramine HCl 25 mg capsule 25 mg PO Q8H 5 days #15 caps 08/17/25 (Benadryl) epinephrine 0.3 mg/0.3 mL 0.3 mg (0.3 mL) IM Q15M PRN 08/17/25 injection, auto-injector (EpiPen anaphylaxis #2 ea 2-Yosvany) famotidine 20 mg tablet (Pepcid) 20 mg PO BID 5 days # 10 tabs 08/17/25 prednisone 20 mg tablet 40 mg (2 x 20 mg) PO DAILY # 10 tabs 08/17/25 Allergies Allergy/AdvReac Type Severity Reaction Status Date / Time buspirone (From BuSpar) Allergy Mild Tongue Verified 08/16/25 22:27 Swelling, dizziness melatonin Allergy Itching Verified 08/16/25 22:27 ibuprofen (From Motrin) AdvReac Mild Rash, HTN Verified 08/16/25 22:27 Review of Systems Review of Systems: No change in voice. Positive diffuse itch. [facility] Past Medical History Attestation statement: The following information was validated with the patient. Medical History Positive ASAEL (antinuclear antibody) Cellulitis of right lower extremity Fibromyalgia Chronic pain syndrome Neurogenic bladder, NOS Chronic kidney disease, stage 3 Hypertension Anemia Depression Cervical cancer Breast pain Back pain with right-sided radiculopathy Asthma Recurrent cellulitis of lower extremity History of cervical cancer Dyspnea on exertion HTN (hypertension) Anemia Migraines Arthritis Fibromyalgia, primary Surgical History History of right knee joint replacement H/O: hysterectomy Social History Social History Household Members: Other Household Members Other:: sister Housing: House Do you presently have visiting 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 Patient Tobacco Use Status: Current everyday Tobacco user Tobacco use type: Cigarette Cigarette Packs Per Day: 0.4 Cigarettes Per Day: 5 Years Smoked: 40 Smoked in Last 30 Days: Yes e-Cigarette/Vaping Use: Never Used Second Hand Smoke Exposure: No Use of substances other than those prescribed or required for medical reasons: No Advance Directives: Yes Advance Directives on File: Yes Advance Directives Date on File: 05/19/24 Patient : No service: No Current occupational status: unemployed Physical Exam ED Exam Exam: Appearance: Alert. Oriented X3. No acute distress. Eyes: Pupils equal, round and reactive to light. ENT: Pharynx normal. Neck: Normal inspection. Neck supple. No lymph nodes noted. No crepitus CVS: Normal heart rate and rhythm. Pulses normal. Normal S1 and S2 Respiratory: No respiratory distress. Breath sounds normal. No Wheezing. No rales Abdomen: Soft and nontender. No rigidity. No distention. good BS x4 Skin: Skin warm and dry. Normal skin color. Normal skin turgor. Extremities: No lower extremity edema. Neurovascular intact to all extremities. No Lacerations. No Rash Neuro: Oriented X 3. No motor deficit. No sensory deficit. Moving all extermities. No slurred speech Vital Signs: Vital Signs - 24 hr 08/16/25 22:25 08/16/25 23:07 Temperature 97.7 F 98.1 F Pulse Rate 86 87 Respiratory Rate 18 17 Blood Pressure 174/84 H 176/88 H Pulse Oximetry 97 97 Oxygen Delivery Method Room Air Room Air BMI result Body Mass Index 30.7 Medications Administered Discontinued Medications Generic Name Dose Route Start Last Admin Trade Name Freq PRN Reason Stop Dose Admin Acetaminophen 975 mg 08/16/25 23:32 08/16/25 23:50 Acetaminophen 325 Mg Tablet PO 08/16/25 23:33 975 mg ONCE ONE Administration Diphenhydramine HCl 50 mg 08/16/25 23:32 08/16/25 23:50 Diphenhydramine Hcl 50 Mg/Ml Vial IVPUSH 08/16/25 23:33 50 mg ONCE ONE Administration Famotidine 20 mg 08/16/25 23:32 08/16/25 23:50 Famotidine/Pf 20 Mg/2 Ml Vial IVPUSH 08/16/25 23:33 20 mg ONCE ONE Administration Methylprednisolone Sodium Succinate 125 mg 08/16/25 23:32 08/16/25 23:50 Methylprednisolone Sod Succ 125 Mg/2 Ml Vial IVPUSH 08/16/25 23:33 125 mg ONCE ONE Administration Medical Decision Making Medical Decision Making [facility] Narrative: Patient is 65 years old. Presented today with having eaten some chocolate that contained nuts. Subsequently felt itchy diffuse over the entire body. No fever no chills. Question throat fullness in the throat. Patient came in for further evaluation. No difficulty swallowing. No difficulty with voice. Did not get an epinephrine prior to arrival. We gave the patient has some steroids some Benadryl some Pepcid monitor for 2 hours. Symptomatically feels much improved. Tolerating p.o.. Voice is normal. No longer itching. Will discharge patient home. Close follow-up advised. Differential Diagnosis Differential Diagnoses: The differential diagnosis associated with the presentation includes Admission/Observation Consideration of admission/observation: Escalation of care including admission/observation considered Chronic Conditions History of allergies to nuts Social Determinants Patient?s care significantly limited by Social Determinants of Health including: Problems related to primary support group Discharge Plan Discharge Clinical Impression: Allergic reaction Patient Disposition: Home, Self-Care Instructions: General Allergic Reaction (ED) Prescriptions: New prednisone 20 mg tablet 40 mg PO DAILY Qty: 10 0RF famotidine [Pepcid] 20 mg tablet 20 mg PO BID 5 Days Qty: 10 0RF diphenhydramine HCl [Benadryl] 25 mg capsule 25 mg PO Q8H 5 Days Qty: 15 0RF epinephrine [EpiPen 2-Yosvany] 0.3 mg/0.3 mL auto-injector 0.3 mg IM Q15M PRN (Reason: anaphylaxis) Qty: 2 0RF Rx Instructions: for 2 doses No Action rosuvastatin 5 mg tablet 5 mg PO DAILY metoprolol succinate 25 mg tablet extended release 24 hr 1 tab PO DAILY lisinopril 40 mg tablet 1 tab PO DAILY acetaminophen 650 mg tablet extended release 2 tab PO Q8H PRN (Reason: pain) albuterol sulfate [Ventolin HFA] 90 mcg/actuation HFA aerosol inhaler 2 puff INHALATION Q4-6H PRN (Reason: wheezing) Tab-A-Iraj Multivitamin w-iron 18-400 mg-mcg tablet 1 tab PO QAM cefuroxime axetil 500 mg tablet 500 mg PO BID Qty: 12 0RF diphenhydramine HCl [Benadryl] 25 mg capsule 50 mg PO TID PRN (Reason: allergic reaction) Qty: 14 0RF diphenhydramine HCl 25 mg capsule 50 mg PO Q6H PRN (Reason: headache, nausea, vomiting) Qty: 20 0RF morphine 15 mg tablet 15 mg PO Q8H PRN (Reason: pain) Qty: 4 0RF Rx Instructions: Partial Fill upon patient request. Excedrin Extra Strength 250-250-65 mg tablet 2 tab PO Q6H PRN (Reason: headache) Qty: 20 0RF metoclopramide HCl [Reglan] 10 mg tablet 10 mg PO Q6H PRN (Reason: nausea and vomiting) Qty: 20 0RF lidocaine [Lidoderm] 5 % adhesive patch,medicated 1 patch topical DAILY Qty: 15 0RF Rx Instructions: leave on most painful area for up to 12 hrs trazodone 100 mg tablet 100 mg PO BEDTIME duloxetine 60 mg capsule,delayed release(DR/EC) 60 mg PO DAILY diphenhydramine HCl 25 mg capsule 50 mg PO Q6H PRN (Reason: headache, nausea, vomiting) Qty: 20 0RF morphine 15 mg tablet 15 mg PO Q6H PRN (Reason: pain) Qty: 10 0RF Rx Instructions: Patient may request partial fill; Partial Fill upon patient request. acetaminophen 500 mg capsule 1,000 mg PO Q8H PRN (Reason: pain) Qty: 14 0RF aspirin 81 mg tablet,delayed release (DR/EC) 81 mg PO DAILY Print Language: Malay
[2025-08-17 01:12] VITALS: BP 143/83; PULSE 77; RESP 18; TEMP 36.7; O2SAT 98
== END 2025-08-17 01:13 | disposition home or self-care (01) ==
PROVIDERS: Emergency Provider Emergency Medicine Emergency Medical Services; PCP General Practice
DX: L29.9 Pruritus, unspecified (principal); T78.19XA Other adverse food reactions, not elsewhere classified, initial encounter; X58.XXXA Exposure to other specified factors, initial encounter
CPT/HCPCS: 96374; 96375; 99284; J1200; J1308; J2919